=== PATIENT | female | born 1985 | race Caucasian/White ===

== ENCOUNTER 2020-01-12 18:36 | Inpatient (IN) | payer OTHER, SELFPAY ==
[2020-01-12 18:45] VITALS: BP 95/61; PULSE 101; RESP 16; TEMP 36.1; O2SAT 95; BMI 20.5
[2020-01-12 18:50] VITALS: BP 98/61; PULSE 101; RESP 20; TEMP 36.1; O2SAT 95
[2020-01-12 20:17] LABS: Glucose Urine UA NEG (NEG); Leukocyte Esterase Urine NEG (NEG); Nitrite Urine NEG (NEG); Specific Gravity - Urine >= 1.030 (1.005-1.025); UPreg QC Valid YES; Urine Blood NEG (NEG); Urine Ketones NEG (NEG); Urine Pregnancy NEGATIVE (NEGATIVE); Urine Protein NEG (NEG-TRACE)
[2020-01-12 20:18] LABS: Appearance Urine CLEAR; Color Urine YELLOW
[2020-01-12 20:24] LABS: Bacteria Urine 1+ /LPF; RBC Urine 0 /HPF (0); Squamous Epithelial Cell Urine 1+ /LPF; WBC Urine 0 /HPF (0-4)
[2020-01-12 20:43] LABS: Amphetamine Screen Urine Not Detected (Not Detect); Barbiturates, Urine Not Detected (Not Detect); Benzodiazepines Screen Urine Not Detected (Not Detect); Cannabinoid Screen Urine Not Detected (Not Detect); Cocaine Screen Urine POSITIVE (Not Detect); Opiate Screen Urine POSITIVE (Not Detect); Phencyclidine Screen Urine Not Detected (Not Detect)
--- NOTE | 2020-01-12 20:58 | ED_ITS ---
HPI - Psych General Chief Complaint: Psychiatric Symptoms <Easton Figueroa NP - Last Filed: 01/12/20 21:08> Stated Complaint: crisis <Easton Figueroa NP - Last Filed: 01/12/20 21:08> Time Seen by Provider: 01/12/20 19:33 <Easton Figueroa NP - Last Filed: 01/12/20 21:08> Source: patient <Easton Figueroa NP - Last Filed: 01/12/20 21:08> Mode of arrival: ambulatory <Easton Figueroa NP - Last Filed: 01/12/20 21:08> Limitations: no limitations <Easton Figueroa NP - Last Filed: 01/12/20 21:08> History of Present Illness HPI Narrative: 34-year-old female with history of anxiety disorder, depression and polysubstance abuse with IV heroin and crack cocaine use who recently used as of noon today presenting with complaint of feeling increasingly depressed and hopeless with thoughts of SI. States she wants to stop using and due to her spleen substance and her overall being she feels depressed. She denies any specific plan. She denies any alcohol use. She denies any body aches or chil ls. No rash. No withdrawal symptoms. <Easton Figueroa NP - Last Filed: 01/12/20 21:08> MD complaint: suicidal ideation, feels depressed and anxiety <Easton Figueroa NP - Last Filed: 01/12/20 21:08> Onset (ago): day(s) <Easton Figueroa NP - Last Filed: 01/12/20 21:08> Duration: constant <Easton Figueroa NP - Last Filed: 01/12/20 21:08> History of same: Yes <Easton Figueroa NP - Last Filed: 01/12/20 21:08> Exacerbating factors: drug use <Easton Figueroa NP - Last Filed: 01/12/20 21:08> Context: recent drug abuse <Easton Figueroa NP - Last Filed: 01/12/20 21:08> Associated psychiatric symptoms: depression <Easton Figueroa NP - Last Filed: 01/12/20 21:08> If self harm: admits thoughts of self harm <Easton Figueroa NP - Last Filed: 01/12/20 21:08> Related Data Home Medications: Home Medications Medication Instructions Recorded Confirmed quetiapine 100 mg PO DAILY 01/12/20 01/12/20 quetiapine [Seroquel] 300 mg PO BEDTIME 01/12/20 01/12/20 methadone 65 mg PO DAILY 01/13/20 01/13/20 <Easton Figueroa NP - Last Filed: 01/12/20 21:08> Allergies/Adverse Reactions: Allergies Allergy/AdvReac Type Severity Reaction Status Date / Time No Known Allergies Allergy Verified 01/12/20 22:14 [No Known Allergies*] <Easton Figueroa NP - Last Filed: 01/12/20 21:08> Review of Systems Review of Systems: Constitutional: No Weight loss, No Fever, No Chills, No Night Sweats, No Fatigue, No Malaise ENT/Mouth: No Hearing loss, No Ear Pain, No Nasal Congestion, No Sinus Pain, No Hoarseness, No sore throat, No Rhinorrhea, No Swallowing Difficulty Eyes: No Eye Pain, No Swelling, No Redness, No Foreign Body, No Discharge, No Vision Changes Cardiovascular: No Chest Pain, No SOB, No Dyspnea on Exertion, No Orthopnea, No Edema, No Palpitations Respiratory: No Cough, No Sputum, No Wheezing, No Smoke Exposure, No Dyspnea Gastrointestinal: No Nausea, No Vomiting, No Diarrhea, No Constipation, No abdominal Pain, No Hematochezia, No Melena Genitourinary: no irregular bleeding, No Dysuria, No Urinary Frequency, No Hematuria, No Urinary Incontinence, No Urgency, No Flank Pain, No Urinary Flow Changes, No Hesitancy Musculoskeletal: No joint pain, No Myalgias, No Joint Swelling Skin: No Skin Lesions, No rash Neuro: No Weakness, No Numbness, No Paresthesias, No Loss of Consciousness, No Dizziness, No Headache Psych: As noted Heme/Lymph: No Bruising, No Bleeding,No Lymphadenopathy Endocrine: No Polyuria, No Polydipsia, No Temperature Intolerance <Easton Figueroa NP - Last Filed: 01/12/20 21:08> Yes all other systems are reviewed and are negative <Easton Figueroa NP - Last Filed: 01/12/20 21:08> [facility] Past Medical History Medical History: Medical History (Updated 01/12/20 @ 21:07 by Easton Figueroa NP) Anxiety Depression PTSD (post-traumatic stress disorder) <Easton Figueroa NP - Last Filed: 01/12/20 21:08> Social History Social History: Social History 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: never Smoking Status: Current every day smoker Smoked in Last 30 Days: Yes Use of substances other than those prescribed or required for medical reasons: Yes Substance Use Type: Opiates Substance Use Frequency: Daily Last Used Substance: Just Prior to Admission Any prior treatment program specific to substance use: No Advance Directives: No Advance Directives Information Provided: Yes <Easton Figueroa NP - Last Filed: 01/12/20 21:08> Physical Exam Vital Signs: Vital Signs: Vital Signs Temp Pulse Resp BP Pulse Ox 01/13/20 21:39 97 F 85 20 117/75 95 01/13/20 17:01 97.3 F 69 16 104/74 95 01/13/20 14:00 86 20 108/74 96 01/13/20 10:57 97.4 F 94 20 133/64 97 01/13/20 09:57 98.0 F 90 20 90/51 L 96 01/13/20 09:02 98.0 F 90 16 90/51 L 96 Body Mass Index 20.5 <Easton Figueroa NP - Last Filed: 01/12/20 21:08> Vital Signs: Vital Signs Temp Pulse Resp BP Pulse Ox 01/13/20 21:39 97 F 85 20 117/75 95 01/13/20 17:01 97.3 F 69 16 104/74 95 01/13/20 14:00 86 20 108/74 96 01/13/20 10:57 97.4 F 94 20 133/64 97 01/13/20 09:57 98.0 F 90 20 90/51 L 96 01/13/20 09:02 98.0 F 90 16 90/51 L 96 Body Mass Index 20.5 <Devaughn Oviedo MD - Last Filed: 01/14/20 00:24> Vital Signs: Vital Signs Temp Pulse Resp BP Pulse Ox 01/13/20 21:39 97 F 85 20 117/75 95 01/13/20 17:01 97.3 F 69 16 104/74 95 01/13/20 14:00 86 20 108/74 96 01/13/20 10:57 97.4 F 94 20 133/64 97 01/13/20 09:57 98.0 F 90 20 90/51 L 96 01/13/20 09:02 98.0 F 90 16 90/51 L 96 Body Mass Index 20.5 <Marlene Person NP - Last Filed: 01/13/20 10:55> Vital Signs: Vital Signs Temp Pulse Resp BP Pulse Ox 01/13/20 21:39 97 F 85 20 117/75 95 01/13/20 17:01 97.3 F 69 16 104/74 95 01/13/20 14:00 86 20 108/74 96 01/13/20 10:57 97.4 F 94 20 133/64 97 01/13/20 09:57 98.0 F 90 20 90/51 L 96 01/13/20 09:02 98.0 F 90 16 90/51 L 96 Body Mass Index 20.5 <BHARAT Barrow - Last Filed: 01/13/20 23:41> Const: General: cooperative and healthy appearing; No acute distress or in toxicated appearing <[facility] FERNANDO Figueroa - Last Filed: 01/12/20 21:08> Nutritional Appearance: average body habitus <[facility] FERNANDO Figueroa - Last Filed: 01/12/20 21:08> Orientation/consciousness: patient oriented x3 <[facility] FERNANDO Figueroa - Last Filed: 01/12/20 21:08> HENMT: Head: Yes normal to inspection <[facility] FERNANDO Figueroa - Last Filed: 01/12/20 21:08> Ears: hearing grossly normal bilaterally <[facility] FERNANDO Figueroa - Last Filed: 01/12/20 21:08> Eyes: General: appearance normal, both eyes and all related structures <[facility] FERNANDO Figueroa - Last Filed: 01/12/20 21:08> Visual Boss: normal visual boss by confrontation <[facility] FERNANDO Figueroa - Last Filed: 01/12/20 21:08> Neck: Neck: Yes normal visual inspection and No tender <[facility] FERNANDO Figueroa - Last Filed: 01/12/20 21:08> Thyroid: Thyroid normal <[facility] FERNANDO Figueroa - Last Filed: 01/12/20 21:08> Chest: Chest palpation & inspection: normal inspection of the chest <[place] [employer]TE[employer] - Last Filed: 01/12/20 21:08> Resp: Effort & Inspection: normal respiratory effort <[place]on [place] [employer] MAINTENANCE MECH[employer]IC - Last Filed: 01/12/20 21:08> Cardio: Jugular venous distension: no JVD <[facility] [place] [employer] MAINTENANCE MECH[employer]IC - Last Filed: 01/12/20 21:08> GI: Inspection: Yes normal to inspection <[facility] Figueroa [employer] MAINTENANCE MECH[employer]IC - Last Filed: 01/12/20 21:08> Percussion: Yes normal to percussion <[facility] Figueroa [employer] MAINTENANCE MECH[employer]IC - Last Filed: 01/12/20 21:08> Auscultation: normal bowel sounds <[facility] Figueroa [employer] MAINTENANCE MECHANIC - Last Filed: 01/12/20 21:08> : General: Yes no CVA tenderness <[facility] Figueroa [employer] MAINTENANCE MECH[employer]IC - Last Filed: 01/12/20 21:08> Back/Spine/Pelvis: Back: no CVA tenderness <[facility] Figueroa [employer] MAINTENANCE MECH[employer]IC - Last Filed: 01/12/20 21:08> Skin: Other: Multiple areas of 1 cm or smaller lesions to the upper and lower extremity were she has been picking. Consistent with self excoriation. No acute erythema / abscess / induration <[facility] Figueroa [employer] MAINTENAN[employer] MECH[employer]IC - Last Filed: 01/12/20 21:08> General skin exam: no rashes or lesions noted <[facility] Figueroa [employer] MAINTENANCE MECH[employer]IC - Last Filed: 01/12/20 21:08> Neuro: General: patient oriented x3 <Easton FigueroaFERNANDO mendez - Last Filed: 01/12/20 21:08> Extrem: General: Yes normal to inspection <[facility] Figueroa, [employer] MAINTENANCE MECH[employer]IC - Last Filed: 1 21:08> Course Course Course Narrative: 2114 Patient resting comfortably eating and drinking. Labs done pending results. Sign-out at this time pending labs review and psychiatric evaluation. <Easton FigueroaFERNANDO - Last Filed: 01/12/20 21:08> patient unable to be assessed by , will reasses in the morning <Devaughn Oviedo MD - Last Filed: 01/14/20 00:24> Reevaluation(s) Reevaluation #1: I have reviewed the chart <Devaughn Oviedo MD - Last Filed: 01/14/20 00:24> MDM - Psych MDM Narrative Medical decision making narrative: will need labs for medical screening /clearance. Will obtain psychiatric evaluation. <Easton Figueroa NP - Last Filed: 01/12/20 21:08> Differential Diagnosis Differential diagnosis: Likely suicidal ideation, depression, drug-induced psychotic disorder, acute anxiety, post-traumatic stress disorder, substance abuse and mood disorder <Easton Figueroa NP - Last Filed: 01/12/20 21:08> Restraints Face to Face Assessment: Face to Face Assessment: Current Situation: After assessment of the patient, a review of the pertinent medical record and a discussion with nursing staff, I feel the patient requires a restrain intervention. Reaction To: [] Medical Condition: [] Behavioral State: [] Continued Need: [] <Easton Figueroa NP - Last Filed: 01/12/20 21:08> Lab Data Result diagrams: : 01/13/20 05:32 01/13/20 05:32 <Easton Figueroa NP - Last Filed: 01/12/20 21:08> Labs: Lab Results 01/12/20 01/12/20 01/13/20 Range/Units 20:02 20:02 05:32 WBC 7.1 (4.8-10.8) X10*3/uL RBC 3.77 L (4.20-5.50) X10*6/uL Hgb 11.0 L (12.0-16.0) g/dl Hct 34.8 L (37-47) % MCV 92.3 (80-98) fL MCH 29.2 (27.0-33.0) pg MCHC 31.6 (31.0-35.0) g/dl RDW 13.4 (11.0-16.0) % Plt Count 327 (160-400) X10*3/uL MPV 9.5 (9.4-12.3) fL Immature Gran % (Auto) 0.3 (0.0-0.4) % Neut % (Auto) 37.5 L (45-73) % Lymph % (Auto) 45.6 H (20-40) % [place] % (Auto) 7.3 (2-11) % Eos % (Auto) 8.9 H (0-4) % Baso % (Auto) 0.4 (0-2) % Lymph # (Auto) 3.2 (1.2-4.9) X10*3/uL [place] # (Auto) 0.5 (0.1-1.2) X10*3/uL Eos # (Auto) 0.6 H (0.0-0.4) X10*3/uL Baso # (Auto) 0.0 (0.0-0.2) X10*3/uL Abs Immat Gran (auto) 0.02 (0.00-0.03) X10*3/uL Absolute Neuts (auto) 2.7 (2.0-8.3) X10*3/uL Absolute Nucleated RBC 0.000 (0.0-0.012) X10*3/uL Nucleated RBC % (auto) 0.0 (0.0-0.2) /100WBC Sodium (135-145) mmol/L Potassium (3.3-5.1) mmol/l Chloride (96-108) mmol/L Carbon Dioxide (22-29) mmol/L Anion Gap (12-20) BUN (9-16) mg/dL Creatinine (0.5-1.4) mg/dL Estim Creat Clear Calc Estimated GFR Random Glucose (60-115) mg/dL Calcium (8.4-10.2) mg/dL Magnesium Total Bilirubin (0.0-1.0) mg/dL Direct Bilirubin (0.0-0.5) mg/dL AST (5-31) U/L ALT (0-31) U/L Alkaline Phosphatase (39-117) U/L Total Protein (6.5-8.0) g/dL Albumin (3.5-5.0) g/dL Urine Color YELLOW Urine Appearance CLEAR Urine pH 6.0 (5.0-8.0) Ur Specific [place] >= 1.030 H (1.005-1.025) Urine Protein NEG (NEG-TRACE) MG/DL Urine Glucose (UA) NEG (NEG) MG/DL Urine Ketones NEG (NEG) MG/DL Urine Blood NEG (NEG) Urine Nitrite NEG (NEG) Ur Leukocyte Esterase NEG (NEG) Urine RBC 0 (0) /HPF Urine WBC 0 (0-4) /HPF Ur Squamous Epith Cells 1+ /LPF Urine Bacteria 1+ /LPF Urine Test NEGATIVE (NEGATIVE) Urine Opiates Screen POSITIVE H (Not Detect) Ur Barbiturates Screen Not Detected (Not Detect) Ur Phencyclidine Scrn Not Detected (Not Detect) Ur Amphetamines Screen Not Detected (Not Detect) U Benzodiazepines Scrn Not Detected (Not Detect) Urine Cocaine Screen POSITIVE H (Not Detect) U Marijuana (THC) Screen Not Detected (Not Detect) Ethyl Alcohol mg/dL 01/13/20 01/13/20 01/13/20 Range/Units 05:32 05:33 05:33 WBC (4.8-10.8) X10*3/uL RBC (4.20-5.50) X10*6/uL Hgb (12.0-16.0) g/dl Hct (37-47) % MCV (80-98) fL MCH (27.0-33.0) pg MCHC (31.0-35.0) g/dl RDW (11.0-16.0) % Plt Count (160-400) X10*3/uL MPV (9.4-12.3) fL Immature Gran % (Auto) (0.0-0.4) % Neut % (Auto) (45-73) % Lymph % (Auto) (20-40) % [place] % (Auto) (2-11) % Eos % (Auto) (0-4) % Baso % (Auto) (0-2) % Lymph # (Auto) (1.2-4.9) X10*3/uL [place] # (Auto) (0.1-1.2) X10*3/uL Eos # (Auto) (0.0-0.4) X10*3/uL Baso # (Auto) (0.0-0.2) X10*3/uL Abs Immat Gran (auto) (0.00-0.03) X10*3/uL Absolute Neuts (auto) (2.0-8.3) X10*3/uL Absolute Nucleated RBC (0.0-0.012) X10*3/uL Nucleated RBC % (auto) (0.0-0.2) /100WBC Sodium 138 (135-145) mmol/L Potassium 4.0 (3.3-5.1) mmol/l Chloride 104 (96-108) mmol/L Carbon Dioxide 28 (22-29) mmol/L Anion Gap 10 L (12-20) BUN 14 (9-16) mg/dL Creatinine 0.76 (0.5-1.4) mg/dL Estim Creat Clear Calc 90.4 Estimated GFR > 60 Random Glucose 99 (60-115) mg/dL Calcium 8.8 (8.4-10.2) mg/dL Magnesium Cancelled Total Bilirubin < 0.2 (0.0-1.0) mg/dL Direct Bilirubin < 0.2 (0.0-0.5) mg/dL AST 17 (5-31) U/L ALT 11 (0-31) U/L Alkaline Phosphatase 85 (39-117) U/L Total Protein 6.6 (6.5-8.0) g/dL Albumin 3.7 (3.5-5.0) g/dL Urine Color Urine Appearance Urine pH (5.0-8.0) Ur Specific [place] (1.005-1.025) Urine Protein (NEG-TRACE) MG/DL Urine Glucose (UA) (NEG) MG/DL Urine Ketones (NEG) MG/DL Urine Blood (NEG) Urine Nitrite (NEG) Ur Leukocyte Esterase (NEG) Urine RBC (0) /HPF Urine WBC (0-4) /HPF Ur Squamous Epith Cells /LPF Urine Bacteria /LPF Urine Test (NEGATIVE) Urine Opiates Screen (Not Detect) Ur Barbiturates Screen (Not Detect) Ur Phencyclidine Scrn (Not Detect) Ur Amphetamines Screen (Not Detect) U Benzodiazepines Scrn (Not Detect) Urine Cocaine Screen (Not Detect) U Marijuana (THC) Screen (Not Detect) Ethyl Alcohol < 10 mg/dL <Easton Figueroa NP - Last Filed: 01/12/20 21:08> Lab Results 01/12/20 01/12/20 01/13/20 Range/Units 20:02 20:02 05:32 WBC 7.1 (4.8-10.8) X10*3/uL RBC 3.77 L (4.20-5.50) X10*6/uL Hgb 11.0 L (12.0-16.0) g/dl Hct 34.8 L (37-47) % MCV 92.3 (80-98) fL MCH 29.2 (27.0-33.0) pg MCHC 31.6 (31.0-35.0) g/dl RDW 13.4 (11.0-16.0) % Plt Count 327 (160-400) X10*3/uL MPV 9.5 (9.4-12.3) fL Immature Gran % (Auto) 0.3 (0.0-0.4) % Neut % (Auto) 37.5 L (45-73) % Lymph % (Auto) 45.6 H (20-40) % [place] % (Auto) 7.3 (2-11) % Eos % (Auto) 8.9 H (0-4) % Baso % (Auto) 0.4 (0-2) % Lymph # (Auto) 3.2 (1.2-4.9) X10*3/uL [place] # (Auto) 0.5 (0.1-1.2) X10*3/uL Eos # (Auto) 0.6 H (0.0-0.4) X10*3/uL Baso # (Auto) 0.0 (0.0-0.2) X10*3/uL Abs Immat Gran (auto) 0.02 (0.00-0.03) X10*3/uL Absolute Neuts (auto) 2.7 (2.0-8.3) X10*3/uL Absolute Nucleated RBC 0.000 (0.0-0.012) X10*3/uL Nucleated RBC % (auto) 0.0 (0.0-0.2) /100WBC Sodium (135-145) mmol/L Potassium (3.3-5.1) mmol/l Chloride (96-108) mmol/L Carbon Dioxide (22-29) mmol/L Anion Gap (12-20) BUN (9-16) mg/dL Creatinine (0.5-1.4) mg/dL Estim Creat Clear Calc Estimated GFR Random Glucose (60-115) mg/dL Calcium (8.4-10.2) mg/dL Magnesium Total Bilirubin (0.0-1.0) mg/dL Direct Bilirubin (0.0-0.5) mg/dL AST (5-31) U/L ALT (0-31) U/L Alkaline Phosphatase (39-117) U/L Total Protein (6.5-8.0) g/dL Albumin (3.5-5.0) g/dL Urine Color YELLOW Urine Appearance CLEAR Urine pH 6.0 (5.0-8.0) Ur Specific [place] >= 1.030 H (1.005-1.025) Urine Protein NEG (NEG-TRACE) MG/DL Urine Glucose (UA) NEG (NEG) MG/DL Urine Ketones NEG (NEG) MG/DL Urine Blood NEG (NEG) Urine Nitrite NEG (NEG) Ur Leukocyte Esterase NEG (NEG) Urine RBC 0 (0) /HPF Urine WBC 0 (0-4) /HPF Ur Squamous Epith Cells 1+ /LPF Urine Bacteria 1+ /LPF Urine Test NEGATIVE (NEGATIVE) Urine Opiates Screen POSITIVE H (Not Detect) Ur Barbiturates Screen Not Detected (Not Detect) Ur Phencyclidine Scrn Not Detected (Not Detect) Ur Amphetamines Screen Not Detected (Not Detect) U Benzodiazepines Scrn Not Detected (Not Detect) Urine Cocaine Screen POSITIVE H (Not Detect) U Marijuana (THC) Screen Not Detected (Not Detect) Ethyl Alcohol mg/dL 01/13/20 01/13/20 01/13/20 Range/Units 05:32 05:33 05:33 WBC (4.8-10.8) X10*3/uL RBC (4.20-5.50) X10*6/uL Hgb (12.0-16.0) g/dl Hct (37-47) % MCV (80-98) fL MCH (27.0-33.0) pg MCHC (31.0-35.0) g/dl RDW (11.0-16.0) % Plt Count (160-400) X10*3/uL MPV (9.4-12.3) fL Immature Gran % (Auto) (0.0-0.4) % Neut % (Auto) (45-73) % Lymph % (Auto) (20-40) % [place] % (Auto) (2-11) % Eos % (Auto) (0-4) % Baso % (Auto) (0-2) % Lymph # (Auto) (1.2-4.9) X10*3/uL [place] # (Auto) (0.1-1.2) X10*3/uL Eos # (Auto) (0.0-0.4) X10*3/uL Baso # (Auto) (0.0-0.2) X10*3/uL Abs Immat Gran (auto) (0.00-0.03) X10*3/uL Absolute Neuts (auto) (2.0-8.3) X10*3/uL Absolute Nucleated RBC (0.0-0.012) X10*3/uL Nucleated RBC % (auto) (0.0-0.2) /100WBC Sodium 138 (135-145) mmol/L Potassium 4.0 (3.3-5.1) mmol/l Chloride 104 (96-108) mmol/L Carbon Dioxide 28 (22-29) mmol/L Anion Gap 10 L (12-20) BUN 14 (9-16) mg/dL Creatinine 0.76 (0.5-1.4) mg/dL Estim Creat Clear Calc 90.4 Estimated GFR > 60 Random Glucose 99 (60-115) mg/dL Calcium 8.8 (8.4-10.2) mg/dL Magnesium Cancelled Total Bilirubin < 0.2 (0.0-1.0) mg/dL Direct Bilirubin < 0.2 (0.0-0.5) mg/dL AST 17 (5-31) U/L ALT 11 (0-31) U/L Alkaline Phosphatase 85 (39-117) U/L Total Protein 6.6 (6.5-8.0) g/dL Albumin 3.7 (3.5-5.0) g/dL Urine Color Urine Appearance Urine pH (5.0-8.0) Ur Specific [place] (1.005-1.025) Urine Protein (NEG-TRACE) MG/DL Urine Glucose (UA) (NEG) MG/DL Urine Ketones (NEG) MG/DL Urine Blood (NEG) Urine Nitrite (NEG) Ur Leukocyte Esterase (NEG) Urine RBC (0) /HPF Urine WBC (0-4) /HPF Ur Squamous Epith Cells /LPF Urine Bacteria /LPF Urine Test (NEGATIVE) Urine Opiates Screen (Not Detect) Ur Barbiturates Screen (Not Detect) Ur Phencyclidine Scrn (Not Detect) Ur Amphetamines Screen (Not Detect) U Benzodiazepines Scrn (Not Detect) Urine Cocaine Screen (Not Detect) U Marijuana (THC) Screen (Not Detect) Ethyl Alcohol < 10 mg/dL <Devaughn Oviedo MD - Last Filed: 01/14/20 00:24> Lab Results 01/12/20 01/12/20 01/13/20 Range/Units 20:02 20:02 05:32 WBC 7.1 (4.8-10.8) X10*3/uL RBC 3.77 L (4.20-5.50) X10*6/uL Hgb 11.0 L (12.0-16.0) g/dl Hct 34.8 L (37-47) % MCV 92.3 (80-98) fL MCH 29.2 (27.0-33.0) pg MCHC 31.6 (31.0-35.0) g/dl RDW 13.4 (11.0-16.0) % Plt Count 327 (160-400) X10*3/uL MPV 9.5 (9.4-12.3) fL Immature Gran % (Auto) 0.3 (0.0-0.4) % Neut % (Auto) 37.5 L (45-73) % Lymph % (Auto) 45.6 H (20-40) % [place] % (Auto) 7.3 (2-11) % Eos % (Auto) 8.9 H (0-4) % Baso % (Auto) 0.4 (0-2) % Lymph # (Auto) 3.2 (1.2-4.9) X10*3/uL [place] # (Auto) 0.5 (0.1-1.2) X10*3/uL Eos # (Auto) 0.6 H (0.0-0.4) X10*3/uL Baso # (Auto) 0.0 (0.0-0.2) X10*3/uL Abs Immat Gran (auto) 0.02 (0.00-0.03) X10*3/uL Absolute Neuts (auto) 2.7 (2.0-8.3) X10*3/uL Absolute Nucleated RBC 0.000 (0.0-0.012) X10*3/uL Nucleated RBC % (auto) 0.0 (0.0-0.2) /100WBC Sodium (135-145) mmol/L Potassium (3.3-5.1) mmol/l Chloride (96-108) mmol/L Carbon Dioxide (22-29) mmol/L Anion Gap (12-20) BUN (9-16) mg/dL Creatinine (0.5-1.4) mg/dL Estim Creat Clear Calc Estimated GFR Random Glucose (60-115) mg/dL Calcium (8.4-10.2) mg/dL Magnesium Total Bilirubin (0.0-1.0) mg/dL Direct Bilirubin (0.0-0.5) mg/dL AST (5-31) U/L ALT (0-31) U/L Alkaline Phosphatase (39-117) U/L Total Protein (6.5-8.0) g/dL Albumin (3.5-5.0) g/dL Urine Color YELLOW Urine Appearance CLEAR Urine pH 6.0 (5.0-8.0) Ur Specific [place] >= 1.030 H (1.005-1.025) Urine Protein NEG (NEG-TRACE) MG/DL Urine Glucose (UA) NEG (NEG) MG/DL Urine Ketones NEG (NEG) MG/DL Urine Blood NEG (NEG) Urine Nitrite NEG (NEG) Ur Leukocyte Esterase NEG (NEG) Urine RBC 0 (0) /HPF Urine WBC 0 (0-4) /HPF Ur Squamous Epith Cells 1+ /LPF Urine Bacteria 1+ /LPF Urine Test NEGATIVE (NEGATIVE) Urine Opiates Screen POSITIVE H (Not Detect) Ur Barbiturates Screen Not Detected (Not Detect) Ur Phencyclidine Scrn Not Detected (Not Detect) Ur Amphetamines Screen Not Detected (Not Detect) U Benzodiazepines Scrn Not Detected (Not Detect) Urine Cocaine Screen POSITIVE H (Not Detect) U Marijuana (THC) Screen Not Detected (Not Detect) Ethyl Alcohol mg/dL 01/13/20 01/13/20 01/13/20 Range/Units 05:32 05:33 05:33 WBC (4.8-10.8) X10*3/uL RBC (4.20-5.50) X10*6/uL Hgb (12.0-16.0) g/dl Hct (37-47) % MCV (80-98) fL MCH (27.0-33.0) pg MCHC (31.0-35.0) g/dl RDW (11.0-16.0) % Plt Count (160-400) X10*3/uL MPV (9.4-12.3) fL Immature Gran % (Auto) (0.0-0.4) % Neut % (Auto) (45-73) % Lymph % (Auto) (20-40) % [place] % (Auto) (2-11) % Eos % (Auto) (0-4) % Baso % (Auto) (0-2) % Lymph # (Auto) (1.2-4.9) X10*3/uL [place] # (Auto) (0.1-1.2) X10*3/uL Eos # (Auto) (0.0-0.4) X10*3/uL Baso # (Auto) (0.0-0.2) X10*3/uL Abs Immat Gran (auto) (0.00-0.03) X10*3/uL Absolute Neuts (auto) (2.0-8.3) X10*3/uL Absolute Nucleated RBC (0.0-0.012) X10*3/uL Nucleated RBC % (auto) (0.0-0.2) /100WBC Sodium 138 (135-145) mmol/L Potassium 4.0 (3.3-5.1) mmol/l Chloride 104 (96-108) mmol/L Carbon Dioxide 28 (22-29) mmol/L Anion Gap 10 L (12-20) BUN 14 (9-16) mg/dL Creatinine 0.76 (0.5-1.4) mg/dL Estim Creat Clear Calc 90.4 Estimated GFR > 60 Random Glucose 99 (60-115) mg/dL Calcium 8.8 (8.4-10.2) mg/dL Magnesium Cancelled Total Bilirubin < 0.2 (0.0-1.0) mg/dL Direct Bilirubin < 0.2 (0.0-0.5) mg/dL AST 17 (5-31) U/L ALT 11 (0-31) U/L Alkaline Phosphatase 85 (39-117) U/L Total Protein 6.6 (6.5-8.0) g/dL Albumin 3.7 (3.5-5.0) g/dL Urine Color Urine Appearance Urine pH (5.0-8.0) Ur Specific [place] (1.005-1.025) Urine Protein (NEG-TRACE) MG/DL Urine Glucose (UA) (NEG) MG/DL Urine Ketones (NEG) MG/DL Urine Blood (NEG) Urine Nitrite (NEG) Ur Leukocyte Esterase (NEG) Urine RBC (0) /HPF Urine WBC (0-4) /HPF Ur Squamous Epith Cells /LPF Urine Bacteria /LPF Urine Test (NEGATIVE) Urine Opiates Screen (Not Detect) Ur Barbiturates Screen (Not Detect) Ur Phencyclidine Scrn (Not Detect) Ur Amphetamines Screen (Not Detect) U Benzodiazepines Scrn (Not Detect) Urine Cocaine Screen (Not Detect) U Marijuana (THC) Screen (Not Detect) Ethyl Alcohol < 10 mg/dL <Marlene Person NP - Last Filed: 01/13/20 10:55> Lab Results 01/12/20 01/12/20 01/13/20 Range/Units 20:02 20:02 05:32 WBC 7.1 (4.8-10.8) X10*3/uL RBC 3.77 L (4.20-5.50) X10*6/uL Hgb 11.0 L (12.0-16.0) g/dl Hct 34.8 L (37-47) % MCV 92.3 (80-98) fL MCH 29.2 (27.0-33.0) pg MCHC 31.6 (31.0-35.0) g/dl RDW 13.4 (11.0-16.0) % Plt Count 327 (160-400) X10*3/uL MPV 9.5 (9.4-12.3) fL Immature Gran % (Auto) 0.3 (0.0-0.4) % Neut % (Auto) 37.5 L (45-73) % Lymph % (Auto) 45.6 H (20-40) % [place] % (Auto) 7.3 (2-11) % Eos % (Auto) 8.9 H (0-4) % Baso % (Auto) 0.4 (0-2) % Lymph # (Auto) 3.2 (1.2-4.9) X10*3/uL [place] # (Auto) 0.5 (0.1-1.2) X10*3/uL Eos # (Auto) 0.6 H (0.0-0.4) X10*3/uL Baso # (Auto) 0.0 (0.0-0.2) X10*3/uL Abs Immat Gran (auto) 0.02 (0.00-0.03) X10*3/uL Absolute Neuts (auto) 2.7 (2.0-8.3) X10*3/uL Absolute Nucleated RBC 0.000 (0.0-0.012) X10*3/uL Nucleated RBC % (auto) 0.0 (0.0-0.2) /100WBC Sodium (135-145) mmol/L Potassium (3.3-5.1) mmol/l Chloride (96-108) mmol/L Carbon Dioxide (22-29) mmol/L Anion Gap (12-20) BUN (9-16) mg/dL Creatinine (0.5-1.4) mg/dL Estim Creat Clear Calc Estimated GFR Random Glucose (60-115) mg/dL Calcium (8.4-10.2) mg/dL Magnesium Total Bilirubin (0.0-1.0) mg/dL Direct Bilirubin (0.0-0.5) mg/dL AST (5-31) U/L ALT (0-31) U/L Alkaline Phosphatase (39-117) U/L Total Protein (6.5-8.0) g/dL Albumin (3.5-5.0) g/dL Urine Color YELLOW Urine Appearance CLEAR Urine pH 6.0 (5.0-8.0) Ur Specific [place] >= 1.030 H (1.005-1.025) Urine Protein NEG (NEG-TRACE) MG/DL Urine Glucose (UA) NEG (NEG) MG/DL Urine Ketones NEG (NEG) MG/DL Urine Blood NEG (NEG) Urine Nitrite NEG (NEG) Ur Leukocyte Esterase NEG (NEG) Urine RBC 0 (0) /HPF Urine WBC 0 (0-4) /HPF Ur Squamous Epith Cells 1+ /LPF Urine Bacteria 1+ /LPF Urine Test NEGATIVE (NEGATIVE) Urine Opiates Screen POSITIVE H (Not Detect) Ur Barbiturates Screen Not Detected (Not Detect) Ur Phencyclidine Scrn Not Detected (Not Detect) Ur Amphetamines Screen Not Detected (Not Detect) U Benzodiazepines Scrn Not Detected (Not Detect) Urine Cocaine Screen POSITIVE H (Not Detect) U Marijuana (THC) Screen Not Detected (Not Detect) Ethyl Alcohol mg/dL 01/13/20 01/13/20 01/13/20 Range/Units 05:32 05:33 05:33 WBC (4.8-10.8) X10*3/uL RBC (4.20-5.50) X10*6/uL Hgb (12.0-16.0) g/dl Hct (37-47) % MCV (80-98) fL MCH (27.0-33.0) pg MCHC (31.0-35.0) g/dl RDW (11.0-16.0) % Plt Count (160-400) X10*3/uL MPV (9.4-12.3) fL Immature Gran % (Auto) (0.0-0.4) % Neut % (Auto) (45-73) % Lymph % (Auto) (20-40) % [place] % (Auto) (2-11) % Eos % (Auto) (0-4) % Baso % (Auto) (0-2) % Lymph # (Auto) (1.2-4.9) X10*3/uL [place] # (Auto) (0.1-1.2) X10*3/uL Eos # (Auto) (0.0-0.4) X10*3/uL Baso # (Auto) (0.0-0.2) X10*3/uL Abs Immat Gran (auto) (0.00-0.03) X10*3/uL Absolute Neuts (auto) (2.0-8.3) X10*3/uL Absolute Nucleated RBC (0.0-0.012) X10*3/uL Nucleated RBC % (auto) (0.0-0.2) /100WBC Sodium 138 (135-145) mmol/L Potassium 4.0 (3.3-5.1) mmol/l Chloride 104 (96-108) mmol/L Carbon Dioxide 28 (22-29) mmol/L Anion Gap 10 L (12-20) BUN 14 (9-16) mg/dL Creatinine 0.76 (0.5-1.4) mg/dL Estim Creat Clear Calc 90.4 Estimated GFR > 60 Random Glucose 99 (60-115) mg/dL Calcium 8.8 (8.4-10.2) mg/dL Magnesium Cancelled Total Bilirubin < 0.2 (0.0-1.0) mg/dL Direct Bilirubin < 0.2 (0.0-0.5) mg/dL AST 17 (5-31) U/L ALT 11 (0-31) U/L Alkaline Phosphatase 85 (39-117) U/L Total Protein 6.6 (6.5-8.0) g/dL Albumin 3.7 (3.5-5.0) g/dL Urine Color Urine Appearance Urine pH (5.0-8.0) Ur Specific [place] (1.005-1.025) Urine Protein (NEG-TRACE) MG/DL Urine Glucose (UA) (NEG) MG/DL Urine Ketones (NEG) MG/DL Urine Blood (NEG) Urine Nitrite (NEG) Ur Leukocyte Esterase (NEG) Urine RBC (0) /HPF Urine WBC (0-4) /HPF Ur Squamous Epith Cells /LPF Urine Bacteria /LPF Urine Test (NEGATIVE) Urine Opiates Screen (Not Detect) Ur Barbiturates Screen (Not Detect) Ur Phencyclidine Scrn (Not Detect) Ur Amphetamines Screen (Not Detect) U Benzodiazepines Scrn (Not Detect) Urine Cocaine Screen (Not Detect) U Marijuana (THC) Screen (Not Detect) Ethyl Alcohol < 10 mg/dL <BHARAT Barrow - Last Filed: 01/13/20 23:41> Discharge Plan Discharge Clinical Impression: Suicidal ideation, Depression, Drug-induced psychotic disorder, Acute anxiety <Easton Figueroa NP - Last Filed: 01/12/20 21:08> Prescriptions: No Action quetiapine [Seroquel] 300 mg Tablet 300 mg PO BEDTIME RF: 0 quetiapine 100 mg tablet 100 mg PO DAILY RF: 0 methadone 65 mg PO DAILY RF: 0 <Easton Figueroa NP - Last Filed: 01/12/20 21:08>
[2020-01-12 21:39] VITALS: BP 93/63; PULSE 84; TEMP 36.1; O2SAT 97
[2020-01-12] MEDS: QUEtiapine Fumarate 300 MG TABLET PO (23:32)
[2020-01-12 23:49] VITALS: BP 93/58; PULSE 91; RESP 20; TEMP 36.7; O2SAT 97
--- NOTE | 2020-01-13 | ECG_ITS ---
Test Reason : MED CLEARANCE Blood Pressure : / mmHG Vent. Rate : 090 BPM Atrial Rate : 090 BPM P-R Int : 120 ms QRS Dur : 080 ms QT Int : 406 ms P-R-T Axes : 049 -13 038 degrees QTc Int : 496 ms Normal sinus rhythm Normal ECG No previous ECGs available Referred By: Jeni Mujica Electronically Signed By:JU MORROW MD
--- NOTE | 2020-01-13 01:43 | PC.NURSE ---
Patient refused to talk to [facility] clinician, patient in deep sleep, agreed to talk in the morning, Denied distress. Will continue to monitor.
--- NOTE | 2020-01-13 04:29 | PC.NURSE ---
Patient in bed appears sleeping, no distress observed/reported, respiration +/=/non-labored bilaterally. Will continue to monitor.
[2020-01-13 05:39] LABS: MANUAL DIFF FLAG NO
[2020-01-13 05:41] LABS: Basophils Percent Auto 0.4 % (0-2); Eosinophils Absolute Auto 0.6 X10*3/uL (0.0-0.4); Eosinophils Percent Auto 8.9 % (0-4); Hematocrit 34.8 % (37-47); Imm Gran Abs Auto 0.02 X10*3/uL (0.00-0.03); Imm Gran Pct Auto 0.3 % (0.0-0.4); Lymphocytes Absolute Auto 3.2 X10*3/uL (1.2-4.9); Lymphocytes Percent Auto 45.6 % (20-40); Mean Corpuscular HGB Conc 31.6 g/dl (31.0-35.0); Mean Corpuscular Hemoglobin 29.2 pg (27.0-33.0); Mean Corpuscular Volume 92.3 fL (80-98); Mean Platelet Volume 9.5 fL (9.4-12.3); Monocytes Absolute Auto 0.5 X10*3/uL (0.1-1.2); Monocytes Percent Auto 7.3 % (2-11); Neutrophils Absolute Auto 2.7 X10*3/uL (2.0-8.3); Neutrophils Percent Auto 37.5 % (45-73); Platelet Count 327 X10*3/uL (160-400); Red Blood Count 3.77 X10*6/uL (4.20-5.50); Red Cell Distribution Width 13.4 % (11.0-16.0); White Blood Count 7.1 X10*3/uL (4.8-10.8)
--- NOTE | 2020-01-13 06:06 | PC.NURSE ---
Patient resistive with her lab draw, needed education and redirection, finally agreed, lab drawn/sent to lab/pending result. Patient currently in bed appears sleeping, no distress observed/reported. Respiration +/=/non-labored bilaterally. Will continue to monitor.
[2020-01-13 06:25] LABS: Ethanol < 10 mg/dL
[2020-01-13 06:25] LABS: Anion Gap 10 (12-20); Blood Urea Nitrogen 14 mg/dL (9-16); Calcium 8.8 mg/dL (8.4-10.2); Carbon Dioxide 28 mmol/L (22-29); Chloride 104 mmol/L (96-108); Creatinine Clr Calc Pharmacy 90.4; Estimated Glomerular Filt Rate > 60; Glucose Random 99 mg/dL (60-115); Sodium 138 mmol/L (135-145)
[2020-01-13 06:29] LABS: Alanine Aminotransferase 11 U/L (0-31); Albumin Level 3.7 g/dL (3.5-5.0); Alkaline Phosphatase 85 U/L (39-117); Aspartate Amino Transferase 17 U/L (5-31); Bilirubin Direct < 0.2 mg/dL (0.0-0.5); Bilirubin Total < 0.2 mg/dL (0.0-1.0); Total Protein 6.6 g/dL (6.5-8.0)
--- NOTE | 2020-01-13 07:23 | PC.NURSE ---
Report received from MANISHA Mixon. Pt resting, resp unlabored.
[2020-01-13] MEDS: QUEtiapine Fumarate 100 MG TABLET PO (08:35)
[2020-01-13 09:02] VITALS: BP 90/51; PULSE 90; RESP 16; TEMP 36.7; O2SAT 96
[2020-01-13 09:57] VITALS: BP 90/51; PULSE 90; RESP 20; TEMP 36.7; O2SAT 96
[2020-01-13 10:57] VITALS: BP 133/64; PULSE 94; RESP 20; TEMP 36.3; O2SAT 97
--- NOTE | 2020-01-13 13:29 | PC.NURSE ---
BHN made several attempts to evaluate pt, but pt not engaging in evaluation. Pt ate several snacks and a sandwich earlier. several scabbed areas noted to arms and legs. Pt arousable, but returns to sleep right away- encouraged to eat lunch but fell back asleep.
[2020-01-13 14:00] VITALS: BP 108/74; PULSE 86; RESP 20; O2SAT 96
[2020-01-13] MEDS: Acetaminophen 325 MG TABLET 650 MG PO (14:26)
[2020-01-13] MEDS: LORazepam 1 MG TABLET PO ×2 (14:26→21:29)
[2020-01-13 17:01] VITALS: BP 104/74; PULSE 69; RESP 16; TEMP 36.3; O2SAT 95
--- NOTE | 2020-01-13 18:38 | PC.NURSE ---
Pt resting, ate meal, no concerns reported.
--- NOTE | 2020-01-13 20:06 | PC.NURSE ---
Pt currently sleeping, no signs of distress. Respirations non-labored.
[2020-01-13] MEDS: QUEtiapine Fumarate 300 MG TABLET PO (21:13)
[2020-01-13] MEDS: Ibuprofen 600 MG TABLET PO (21:29)
[2020-01-13 21:39] VITALS: BP 117/75; PULSE 85; RESP 20; TEMP 36.1; O2SAT 95
--- NOTE | 2020-01-13 22:59 | PC.NURSE ---
PER CARE TEAM ADMITTED TO M5 BED 517-2 DX: ADJUSTMENT DISORDER W/EMOTIONAL & CONDUCT DISORDER
[2020-01-14 00:33] LABS: SARS COV2 PCR INHOUSE NEGATIVE (Negative)
[2020-01-14 00:37] LABS: Magnesium 2.1 mg/dL (1.6-2.6)
[2020-01-14 04:35] VITALS: BP 95/54; PULSE 80; RESP 18; TEMP 36.3; O2SAT 96
--- NOTE | 2020-01-14 04:48 | PC.NURSE ---
Patient signed 3 day notice to discharge. Signed on 01/14/20 and discharge date 01/18/20. Staff notified.
[2020-01-14 05:03] VITALS: BMI 22.3
--- NOTE | 2020-01-14 05:14 | PC.ADMIT ---
patient was brought to the unit by 0430. VSs was taken while patient remained in the wheelchair. Patient reports that yes I have suicidal thoughts. I want to kill myself. I want to lie down. I am dope sick . Patient reports that patient uses opiate on the top of her Methadone and that she is withdrawing now. Patient asked for food and fluid I need a lot of sugar in my cereal. I only eat like this when I am detoxing . Patient signed CV prior to brought up to M5, then requested to sign 3 day notice. Patient presented with irritabl/agiatated mood, with some behaviors as childlike, not cooperative on admission, refused to answer some basic questions. UDS was positive for opiates and cocaine. BAL was negative. EKG was done, NSR, with prolong QT and Qtc interval(406/496). Some skin issues observed on bilalerall arms I pick on my skin .Patient is placed on 5 min check with unlokced bathroom for own safety. Methadone dose will be confirmed in the morning by day nurse. Nurse to nurse was done. Nurse to DOC will be done shorty and home meds will be verified with Pharm.
[2020-01-14 06:00] VITALS: BP 92/57; PULSE 80; TEMP 37.3
[2020-01-14] MEDS: QUEtiapine Fumarate 100 MG TABLET PO (08:59)
[2020-01-14] MEDS: LORazepam 1 MG TABLET PO ×2 (11:40→18:10)
[2020-01-14 15:04] VITALS: BP 92/57; PULSE 80; TEMP 37.3
[2020-01-14] MEDS: Acetaminophen 325 MG TABLET 650 MG PO (18:11)
--- NOTE | 2020-01-14 19:01 | P.HPPS_ITS ---
HPI Chief Complaint: Depressed with si Sources of Information: patient interviewed, chart reviewed and crisis/core team assessment reviewed Additional Sources of Information: PATIENT IS IRRITABLE DEMANDING TO LEAVE GIVING MINIMAL INFORMATION HPI Narrative: THE PATIENT IS A 34-YEAR-OLD FEMALE REFERRED TO THE [facility] BY AMBULANCE. REPORTEDLY THE PATIENT'S BOYFRIEND HAD CALLED THE AMBULANCE SECONDARY TO REPORTED CONCERNS THAT THE PATIENT HAD BEEN UP ABUSING ANXIETY MEDICATIONS IN THE EMERGENCY ROOM THE PATIENT WAS LETHARGIC. SHE HAS A REPORTED DIAGNOSIS OF BIPOLAR DISORDER CURRENTLY ON SEROQUEL AND METHADONE SHE IS ON SEROQUEL 100 MG IN THE MORNING 200 MG AT BEDTIME PATIENT IS ALSO ON METHADONE 65 MG DAILY THE PATIENT HAD ORIGINALLY REPORTEDLY PRESENTED FROM [facility] WHO CALLED 911 TO TRANSPORT HER TO THE EMERGENCY ROOM SECONDARY TO SEVERE MOOD LABILITY AND REPORTEDLY EXPRESSING A WISH TO . PATIENT REPORTEDLY HAS BEEN ABUSING HEROIN AND COCAINE IN ADDITION TO TAKING METHADONE. Past Psychiatric History: UNWILLING TO PROVIDE [facility] Medical History (Updated 01/14/20 @ 20:31 by Adolfo Price MD) Anxiety Depression PTSD (post-traumatic stress disorder) Narrative: EKG IN THE EMERGENCY ROOM WAS NORMAL SINUS RHYTHM BUT WITH A PROLONGED QTC OF 496 Narrative: Family History: UNABLE TO OBTAIN Social History: PATIENT HAS A HISTORY OF ADDICTION REPORTED THIS HISTORY OF BIPOLAR DISORDER. SHE STATES SHE HAD BEEN LIVING WITH HER GRANDMOTHER. THERE IS A CONCERN BOYFRIEND Substance History: PATIENT HAS A HISTORY OF INTRAVENOUS COCAINE HEROIN USE REPORTED ABUSE OF BENZODIAZEPINES FROM THE STREET SHE IS ON METHADONE 65 MG FURTHER INFORMATION PATIENT REFUSING TO GIVE AT THIS TIME Diagnostics Vital Signs (24Hr): Vital Signs - 24 hr 01/13/20 21:39 01/14/20 04:35 01/14/20 06:00 Temperature 97 F 97.3 F 99.2 F Pulse Rate 85 80 80 Respiratory Rate 20 18 Blood Pressure 117/75 95/54 L 92/57 L Pulse Oximetry 95 96 01/14/20 15:04 Temperature 99.2 F Pulse Rate 80 Respiratory Rate Blood Pressure 92/57 L Pulse Oximetry Body Mass Index 22.3 Labs Results: 01/13/20 05:32 01/13/20 05:32 Labs: Laboratory Results - last 48 hr 01/12/20 01/12/20 01/13/20 20:02 20:02 05:32 WBC 7.1 RBC 3.77 L Hgb 11.0 L Hct 34.8 L MCV 92.3 MCH 29.2 MCHC 31.6 RDW 13.4 Plt Count 327 MPV 9.5 Immature Gran % (Auto) 0.3 Neut % (Auto) 37.5 L Lymph % (Auto) 45.6 H [place] % (Auto) 7.3 Eos % (Auto) 8.9 H Baso % (Auto) 0.4 Lymph # (Auto) 3.2 [place] # (Auto) 0.5 Eos # (Auto) 0.6 H Baso # (Auto) 0.0 Abs Immat Gran (auto) 0.02 Absolute Neuts (auto) 2.7 Absolute Nucleated RBC 0.000 Nucleated RBC % (auto) 0.0 Sodium Potassium Chloride Carbon Dioxide Anion Gap BUN Creatinine Estim Creat Clear Calc Estimated GFR Random Glucose Calcium Magnesium Total Bilirubin Direct Bilirubin AST ALT Alkaline Phosphatase Total Protein Albumin Urine Color YELLOW Urine Appearance CLEAR Urine pH 6.0 Ur Specific [place] >= 1.030 H Urine Protein NEG Urine Glucose (UA) NEG Urine Ketones NEG Urine Blood NEG Urine Nitrite NEG Ur Leukocyte Esterase NEG Urine RBC 0 Urine WBC 0 Ur Squamous Epith Cells 1+ Urine Bacteria 1+ Urine Test NEGATIVE Urine Opiates Screen POSITIVE H Ur Barbiturates Screen Not Detected Ur Phencyclidine Scrn Not Detected Ur Amphetamines Screen Not Detected U Benzodiazepines Scrn Not Detected Urine Cocaine Screen POSITIVE H U Marijuana (THC) Screen Not Detected Ethyl Alcohol Coronavirus (PCR) 01/13/20 01/13/20 01/13/20 05:32 05:33 05:33 WBC RBC Hgb Hct MCV MCH MCHC RDW Plt Count MPV Immature Gran % (Auto) Neut % (Auto) Lymph % (Auto) [place] % (Auto) Eos % (Auto) Baso % (Auto) Lymph # (Auto) [place] # (Auto) Eos # (Auto) Baso # (Auto) Abs Immat Gran (auto) Absolute Neuts (auto) Absolute Nucleated RBC Nucleated RBC % (auto) Sodium 138 Potassium 4.0 Chloride 104 Carbon Dioxide 28 Anion Gap 10 L BUN 14 Creatinine 0.76 Estim Creat Clear Calc 90.4 Estimated GFR > 60 Random Glucose 99 Calcium 8.8 Magnesium Cancelled Total Bilirubin < 0.2 Direct Bilirubin < 0.2 AST 17 ALT 11 Alkaline Phosphatase 85 Total Protein 6.6 Albumin 3.7 Urine Color Urine Appearance Urine pH Ur Specific [place] Urine Protein Urine Glucose (UA) Urine Ketones Urine Blood Urine Nitrite Ur Leukocyte Esterase Urine RBC Urine WBC Ur Squamous Epith Cells Urine Bacteria Urine Test Urine Opiates Screen Ur Barbiturates Screen Ur Phencyclidine Scrn Ur Amphetamines Screen U Benzodiazepines Scrn Urine Cocaine Screen U Marijuana (THC) Screen Ethyl Alcohol < 10 Coronavirus (PCR) 01/13/20 01/14/20 23:24 00:08 WBC RBC Hgb Hct MCV MCH MCHC RDW Plt Count MPV Immature Gran % (Auto) Neut % (Auto) Lymph % (Auto) [place] % (Auto) Eos % (Auto) Baso % (Auto) Lymph # (Auto) [place] # (Auto) Eos # (Auto) Baso # (Auto) Abs Immat Gran (auto) Absolute Neuts (auto) Absolute Nucleated RBC Nucleated RBC % (auto) Sodium Potassium Chloride Carbon Dioxide Anion Gap BUN Creatinine Estim Creat Clear Calc Estimated GFR Random Glucose Calcium Magnesium 2.1 Total Bilirubin Direct Bilirubin AST ALT Alkaline Phosphatase Total Protein Albumin Urine Color Urine Appearance Urine pH Ur Specific [place] Urine Protein Urine Glucose (UA) Urine Ketones Urine Blood Urine Nitrite Ur Leukocyte Esterase Urine RBC Urine WBC Ur Squamous Epith Cells Urine Bacteria Urine Test Urine Opiates Screen Ur Barbiturates Screen Ur Phencyclidine Scrn Ur Amphetamines Screen U Benzodiazepines Scrn Urine Cocaine Screen U Marijuana (THC) Screen Ethyl Alcohol Coronavirus (PCR) NEGATIVE Meds/Allergies Meds Home Medications Medication Instructions Recorded Confirmed Type quetiapine 100 mg PO DAILY 01/12/20 01/14/20 History quetiapine [Seroquel] 300 mg PO BEDTIME 01/12/20 01/14/20 History methadone 65 mg PO DAILY 01/13/20 01/13/20 History Allergies Allergies Allergy/AdvReac Type Severity Reaction Status Date / Time No Known Allergies Allergy Verified 01/12/20 22:14 [No Known Allergies*] Mental Status Exam Mental Status Exam Narrative: THE PATIENT IS SEEN LYING IN BED. SHE IS INITIALLY LETHARGIC DEMANDING TO LEAVE THE HOSPITAL. SHE WAS GIVEN A TERRELL WARNING AND LEGAL ISSUES AND SAFETY ISSUES REGARDING INPATIENT ADMISSION WERE REVIEWED. THE PATIENT WAS YELLING CURSING REFUSING TO GIVE INFORMATION. INITIALLY SHE WAS LETHARGIC BUT AROUSABLE. WAS AGITATED CURSING YELLING DEMANDING TO LEAVE THE HOSPITAL AND UNABLE TO TAKE IN INFORMATION REGARDING HOW SHE HAD BEEN ON THE COMMUNITY WHAT B ROUGHT HER TO THE EMERGENCY ROOM AND SAFETY ISSUES. COULD NOT HAVE A CONVERSATION REGARDING HER HISTORY OR TREATMENT. SHE DID STATE SHE WAS COMING DOWN OFF COCAINE AND WAS QUITE DEPRESSED AND JUST WANTED TO GO TO A SUBSTANCE TREATMENT CENTER SHE WAS QUITE LABILE AGITATED POOR INSIGHT IMPULSE CONTROL AND JUDGMENT. Assessment & Plan Assessment & Plan (1) Suicidal ideation: Status: Acute Code(s): R45.851 - Suicidal ideations (2) PTSD (post-traumatic stress disorder): Status: Acute Code(s): F43.10 - Post-traumatic stress disorder, unspecified (3) Opiate withdrawal: Status: Acute Code(s): F11.23 - Opioid dependence with withdrawal (4) Opioid abuse with opioid-induced mood disorder: Status: Acute Code(s): F11.14 - Opioid abuse with opioid-induced mood disorder (5) Atypical bipolar disorder: Status: Acute Code(s): F31.89 - Other bipolar disorder Assessment and Plan: PATIENT IS A 34-YEAR-OLD FEMALE IRRITABLE AGITATED HE IS QUESTION OF COCAINE WITHDRAWAL QUESTION OF OPIATE WITHDRAWAL REPORTEDLY BIPOLAR AND WAS MANIC. CONTINUE SEROQUEL ON METHADONE HOWEVER NEED TO MONITOR EKG HER INITIAL EKG SHOWED AN INCREASE IN QTC. PATIENT DEALING DEMANDING TO LEAVE ALSO ASKING FOR MEDICATION. EXPLAINED HER LEGAL SITUATION. CONTINUE METHADONE START CLONIDINE FOR WITHDRAWAL LIMITED USE OF BENZODIAZEPINES MONITOR FOR OVER SEDATION MONITOR EKG EVALUATE SAFETY PATIENT ON A CV WITH A 3 DAY NOTICE EVALUATE FOR SAFETY TRY AND DEVELOP THERAPEUTIC ALLIANCE CONSIDER RETENTION CONSIDER SECTION 35 Patient educated on: medication risk/benefits ( HAD DIFFICULTY HAVING A DISCUSSION), substance abuse ( HAD DIFFICULTY HAVING A DISCUSSION), medical condition ( I DID EXPLAIN TO HER SHE HAD ABNORMAL EKG) and other ( A PSY CHIATRIC HOSPITALIZATION AND LEGAL ISSUES) Informed Consent: further education needed Reason for continued inpatient stay Substantial Risk for: harm to self, rapid decompensation and med/psych decompensation
[2020-01-14 19:11] VITALS: BP 113/69; PULSE 95; TEMP 36.8
[2020-01-14] MEDS: QUEtiapine Fumarate 50 MG TABLET PO (19:14)
[2020-01-14 19:38] VITALS: BP 113/69; PULSE 95
[2020-01-14] MEDS: cloNIDine HCL 0.1 MG TABLET PO (19:38)
[2020-01-14] MEDS: QUEtiapine Fumarate 300 MG TABLET PO (20:11)
[2020-01-15] MEDS: LORazepam 1 MG TABLET PO ×4 (03:48→19:50)
[2020-01-15] MEDS: QUEtiapine Fumarate 50 MG TABLET PO ×2 (03:49→15:23)
[2020-01-15 03:50] VITALS: BP 85/60; PULSE 92; RESP 18; TEMP 36.2
[2020-01-15] MEDS: QUEtiapine Fumarate 100 MG TABLET PO (08:41)
[2020-01-15 12:19] VITALS: BP 94/56; PULSE 74
[2020-01-15] MEDS: Acetaminophen 325 MG TABLET 650 MG PO (15:22)
[2020-01-15 16:28] VITALS: BP 103/62; PULSE 75; TEMP 36.9
--- NOTE | 2020-01-15 17:00 | HO.PSYCHPN ---
Subjective Subjective Reason For Visit: Depressed with si Subjective Notes: Conditional Voluntary and 3 Day Interim History: for patient markedly irritable and dysphoric again given lozano warning. Yelling screaming demanding to leave has no plan denies making suicidal statements prior to admission denies recent psychiatric treatment she is agreeable to taking Seroquel demanding repeated meds for withdrawal less sedated Medication Compliance: Yes Attending Groups: No Mental Status Exam Mental Status Exam Narrative: patient continues to be uncooperative depressed irritable hostile demanding to leave the hospital denying active suicidal ideation no hallucinations or delusional material. Patient's labile irritable Lozano warning again reviewed patient has 3 day notice demanding to leave the hospital with no clear plan poor impulse control hostile angry limited judgment Diagnostics Vital Signs (24Hr): Vital Signs - 24 hr 01/14/20 19:11 01/14/20 19:38 01/15/20 03:50 Temperature 98.3 F 97.1 F Pulse Rate 95 95 92 Respiratory Rate 18 Blood Pressure 113/69 113/69 85/60 L 01/15/20 12:19 01/15/20 16:28 Temperature 98.4 F Pulse Rate 74 75 Respiratory Rate Blood Pressure 94/56 L 103/62 Body Mass Index 22.3 Labs Results: 01/13/20 05:32 01/13/20 05:32 Labs: Laboratory Results - last 48 hr 01/13/20 01/13/20 01/14/20 05:32 23:24 00:08 Magnesium Cancelled 2.1 Coronavirus (PCR) NEGATIVE Medications Medications Current Medications Generic Name Dose Route Start Last Admin Trade Name Freq PRN Reason Stop Dose Admin Acetaminophen 650 mg 01/14/20 04:46 01/15/20 15:22 Acetaminophen 325 Mg Tablet PO 650 mg Q6H PRN Administration Headache/Pain Mild Scale (1-3) Al Hydroxide/Mg Hydroxide 30 ml 01/14/20 04:46 Magnesium Hydrox/Alum Hydrox 30 Ml Oral.Susp PO Q6H PRN Heartburn/Nausea Clonidine HCl 0.1 mg 01/14/20 19:26 01/14/20 19:38 Clonidine Hcl 0.1 Mg Tablet PO 0.1 mg Q4H PRN Administration OPIATE WITHDRAWL Protocol Gabapentin 300 mg 01/15/20 17:00 Gabapentin 100 Mg Capsule PO TID JAIR Lorazepam 1 mg 01/14/20 10:41 01/15/20 15:23 Lorazepam 1 Mg Tablet PO 1 mg TID PRN Administration anxiety/restlessness Magnesium Hydroxide 30 ml 01/14/20 04:46 Milk Of Magnesia 30 Ml Oral.Susp PO DAILY PRN Constipation Methadone HCl 60 mg 01/13/20 11:00 01/15/20 08:41 Methadone Hcl 1 Mg/0.1 Ml Oral.Conc PO 60 mg DAILY JAIR Administration Ondansetron HCl 4 mg 01/15/20 16:56 Ondansetron Odt 4 Mg Tab.Rapdis TRANSLINGU Q6H PRN Nausea Quetiapine Fumarate 300 mg 01/12/20 23:15 01/14/20 20:11 Quetiapine Fumarate 300 Mg Tablet PO 300 mg BEDTIME JAIR Administration Quetiapine Fumarate 100 mg 01/13/20 09:00 01/15/20 08:41 Quetiapine Fumarate 100 Mg Tablet PO 100 mg DAILY JAIR Administration Quetiapine Fumarate 50 mg 01/14/20 18:56 01/15/20 15:23 Quetiapine Fumarate 50 Mg Tablet PO 50 mg Q4H PRN Administration anxiety/restlessness Trazodone HCl 50 mg 01/14/20 04:46 Trazodone Hcl 50 Mg Tablet PO BEDTIME PRN Insomnia Allergies Allergies Allergy/AdvReac Type Severity Reaction Status Date / Time No Known Allergies Allergy Verified 01/12/20 22:14 [No Known Allergies*] Assessment & Plan Assessment & Plan (1) Atypical bipolar disorder: Status: Acute Code(s): F31.89 - Other bipolar disorder (2) Opioid abuse with opioid-induced mood disorder: Status: Acute Code(s): F11.14 - Opioid abuse with opioid-induced mood disorder (3) Opiate withdrawal: Status: Acute Code(s): F11.23 - Opioid dependence with withdrawal (4) PTSD (post-traumatic stress disorder): Status: Acute Code(s): F43.10 - Post-traumatic stress disorder, unspecified (5) Suicidal ideation: Status: Acute Code(s): R45.851 - Suicidal ideations Assessment and Plan: clonidine gabapentin lorazepam for help with detox Seroquel as mood stabilizing agent and for bipolar disorder anxiety and agitation monitor safety evaluate need for retention need collateral information patient impulsive demanding to leave but poor insight and judgment may need retention consideration of [place] 35 Greater than 50% of the session was spent on counseling and/or coordination of care
[2020-01-15] MEDS: Gabapentin 100 MG CAPSULE 300 MG PO ×2 (17:54→19:45)
[2020-01-15] MEDS: QUEtiapine Fumarate 300 MG TABLET PO (19:46)
[2020-01-16] VITALS (7 sets, daily range): BP systolic 101–111; BP diastolic 60–72; PULSE 88–96; RESP 18; TEMP 35.8–36.7; O2SAT 98
[2020-01-16] MEDS: QUEtiapine Fumarate 50 MG TABLET PO ×3 (05:12→17:20)
[2020-01-16] MEDS: LORazepam 1 MG TABLET PO ×3 (05:12→18:48)
[2020-01-16] MEDS: QUEtiapine Fumarate 100 MG TABLET PO (08:51)
[2020-01-16] MEDS: cloNIDine HCL 0.1 MG TABLET PO ×3 (08:56→17:19)
[2020-01-16] MEDS: Gabapentin 100 MG CAPSULE 300 MG PO ×3 (08:56→20:01)
[2020-01-16] MEDS: OLANZapine 10 MG VIAL IM (10:23)
[2020-01-16] MEDS: Nicotine 21 MG PATCH.TD24 TRANSDERMA (12:51)
[2020-01-16] MEDS: Acetaminophen 325 MG TABLET 650 MG PO (12:53)
--- NOTE | 2020-01-16 14:21 | P.EN_ITS ---
Event Note Event Note: 34-year-old woman admitted to for inpatient behavior health. Apparently she was at a facility in [place] and she had tested positive for gonorrhea, and possibly chlamydia and Trichomonas. She did report symptoms including yellow foul-smelling discharge, redness, irritation and lower abdominal pain and pressure. PLAN: STD. Will check BV panel, chlamydia, gonorrhea but will treat in the meantime with Doxycycine po BID for 7days (due to prolonged QTC) and Rocephin. Refused HIV check. Will also Check Urinalysis. Prolonged QTC. On Methadone, Should discuss with Flower Donohue for dosing. No complaints of arrythmia, palpitations. Check EKG in the morning. Discussed with Dr. Norberto Ricketts code.
--- NOTE | 2020-01-16 15:02 | PC.NURSE ---
DECLINED TO PARTICIPATE IN ADMISSION ASSESSMENT THIS SHIFT. DECLINED FLU VACCINE OFFERED. DR GARCIA NOTIFIED OF NEED FOR SMOKING CESSATION COUNSELING ORDER. PT REQUESTED AND RECEIVED ORDER FOR NICOTINE PATCH FOR NICOTINE CRAVINGS.
[2020-01-16 15:44] LABS: Glucose Urine UA NEG (NEG); Leukocyte Esterase Urine NEG (NEG); Nitrite Urine NEG (NEG); Specific Gravity - Urine >= 1.030 (1.005-1.025); Urine Blood NEG (NEG); Urine Ketones NEG (NEG); Urine Protein NEG (NEG-TRACE)
[2020-01-16 15:46] LABS: Appearance Urine CLEAR; Color Urine YELLOW
[2020-01-16] MEDS: cefTRIAXone sodium 250 MG VIAL IM (18:49)
[2020-01-16] MEDS: QUEtiapine Fumarate 300 MG TABLET PO (20:02)
[2020-01-17 00:35] VITALS: BP 93/63; PULSE 106
[2020-01-17] MEDS: cloNIDine HCL 0.1 MG TABLET PO ×2 (00:35→12:49)
[2020-01-17] MEDS: traZODone HCL 50 MG TABLET PO (00:35)
[2020-01-17] MEDS: Acetaminophen 325 MG TABLET 650 MG PO ×2 (00:35→13:04)
[2020-01-17] MEDS: QUEtiapine Fumarate 50 MG TABLET PO ×2 (00:35→04:37)
[2020-01-17 00:39] VITALS: BP 93/63; PULSE 106; RESP 18; TEMP 37.1
[2020-01-17] MEDS: LORazepam 1 MG TABLET PO ×3 (03:16→17:16)
--- NOTE | 2020-01-17 06:00 | ECG_ITS ---
Test Reason : repeat, check QTC Blood Pressure : / mmHG Vent. Rate : 065 BPM Atrial Rate : 065 BPM P-R Int : 126 ms QRS Dur : 090 ms QT Int : 432 ms P-R-T Axes : 038 -08 017 degrees QTc Int : 449 ms Normal sinus rhythm RSR' or QR pattern in V1 suggests right ventricular conduction delay Nonspecific T wave abnormality Inferior leads Borderline ECG When compared with ECG of 13-JAN-2020 23:33, No significant changes seen Referred By: Gwen Fine Electronically Signed By:JU MORROW MD
[2020-01-17] MEDS: QUEtiapine Fumarate 100 MG TABLET PO (09:02)
[2020-01-17] MEDS: Gabapentin 100 MG CAPSULE 300 MG PO (09:02)
[2020-01-17] MEDS: Nicotine 21 MG PATCH.TD24 TRANSDERMA (09:03)
[2020-01-17 09:07] VITALS: BP 119/72; PULSE 108; TEMP 36.7
[2020-01-17 11:11] LABS: CT PCR NOT DETECTED (Not Detect.); NG PCR NOT DETECTED (Not Detect.)
[2020-01-17 12:49] VITALS: BP 105/64; PULSE 87
[2020-01-17 12:59] VITALS: BP 105/64; PULSE 87; TEMP 36.7
--- NOTE | 2020-01-17 13:21 | HO.PSYCHPN ---
Subjective Subjective Reason For Visit: Depressed with si Subjective Notes: Conditional Voluntary and 3 Day Interim History: Pt less reactive future oriented cont on methadone Medication Compliance: Yes Attending Groups: No Mental Status Exam Mental Status Exam Narrative: Patient more appropriate less labile future oriented somewhat pressured nonpsychotic future oriented mood anxious labile less impulsive denies any active thoughts of self-harm somewhat chaotic and still not able to give a clear history states she has substance treatment agreeable to referral for psychiatric outpatient care Diagnostics Vital Signs (24Hr): Vital Signs - 24 hr 01/16/20 14:43 01/16/20 17:15 01/16/20 17:19 Temperature 98.1 F 97.2 F Pulse Rate 94 94 Respiratory Rate Blood Pressure 101/72 101/62 01/17/20 00:35 01/17/20 00:39 01/17/20 09:07 Temperature 98.8 F 98.0 F Pulse Rate 106 H 106 H 108 H Respiratory Rate 18 Blood Pressure 93/63 93/63 119/72 01/17/20 12:49 01/17/20 12:59 Temperature 98.1 F Pulse Rate 87 87 Respiratory Rate Blood Pressure 105/64 105/64 Body Mass Index 22.3 Labs Results: 01/13/20 05:32 01/13/20 05:32 Labs: Laboratory Results - last 48 hr 01/16/20 01/16/20 15:11 16:26 Urine Color YELLOW Urine Appearance CLEAR Urine pH 6.0 Ur Specific [place] >= 1.030 H Urine Protein NEG Urine Glucose (UA) NEG Urine Ketones NEG Urine Blood NEG Urine Nitrite NEG Ur Leukocyte Esterase NEG Chlam trachomat DNA PCR NOT DETECTED N.gonorrhoeae DNA (PCR) NOT DETECTED Medications Medications Current Medications Generic Name Dose Route Start Last Admin Trade Name Freq PRN Reason Stop Dose Admin Acetaminophen 650 mg 01/14/20 04:46 01/17/20 13:04 Acetaminophen 325 Mg Tablet PO 650 mg Q6H PRN Administration Headache/Pain Mild Scale (1-3) Al Hydroxide/Mg Hydroxide 30 ml 01/14/20 04:46 Magnesium Hydrox/Alum Hydrox 30 Ml Oral.Susp PO Q6H PRN Heartburn/Nausea Clonidine HCl 0.1 mg 01/14/20 19:26 01/17/20 12:49 Clonidine Hcl 0.1 Mg Tablet PO 0.1 mg Q4H PRN Administration OPIATE WITHDRAWL Protocol Doxycycline Hyclate 100 mg 01/17/20 08:00 01/17/20 09:02 Doxycycline Hyclate 100 Mg Tablet PO 01/23/20 08:01 100 mg Q12H JAIR Administration Gabapentin 400 mg 01/17/20 15:00 Gabapentin 100 Mg Capsule PO TID JAIR Ibuprofen 400 mg 01/17/20 13:04 Ibuprofen 400 Mg Tablet PO Q6H PRN Pain, Moderate (Pain Scale 4-6 Lorazepam 1 mg 01/14/20 10:41 01/17/20 12:48 Lorazepam 1 Mg Tablet PO 1 mg TID PRN Administration anxiety/restlessness Magnesium Hydroxide 30 ml 01/14/20 04:46 Milk Of Magnesia 30 Ml Oral.Susp PO DAILY PRN Constipation Methadone HCl 60 mg 01/13/20 11:00 01/17/20 09:03 Methadone Hcl 1 Mg/0.1 Ml Oral.Conc PO 60 mg DAILY JAIR Administration Nicotine 21 mg 01/16/20 10:30 01/17/20 09:03 Nicotine 21 Mg Patch.Td24 TRANSDERMA 21 mg DAILY JAIR Administration Ondansetron HCl 4 mg 01/15/20 16:56 01/16/20 12:57 Ondansetron Odt 4 Mg Tab.Rapdis TRANSLINGU 4 mg Q6H PRN Administration Nausea Quetiapine Fumarate 300 mg 01/12/20 23:15 01/16/20 20:02 Quetiapine Fumarate 300 Mg Tablet PO 300 mg BEDTIME JAIR Administration Quetiapine Fumarate 100 mg 01/13/20 09:00 01/17/20 09:02 Quetiapine Fumarate 100 Mg Tablet PO 100 mg DAILY JAIR Administration Quetiapine Fumarate 50 mg 01/14/20 18:56 01/17/20 04:37 Quetiapine Fumarate 50 Mg Tablet PO 50 mg Q4H PRN Administration anxiety/restlessness Trazodone HCl 50 mg 01/14/20 04:46 01/17/20 00:35 Trazodone Hcl 50 Mg Tablet PO 50 mg BEDTIME PRN Administration Insomnia Allergies Allergies Allergy/AdvReac Type Severity Reaction Status Date / Time No Known Allergies Allergy Verified 01/12/20 22:14 [No Known Allergies*] Assessment & Plan Assessment & Plan (1) Atypical bipolar disorder: Status: Acute Code(s): F31.89 - Other bipolar disorder (2) Opioid abuse with opioid-induced mood disorder: Status: Acute Code(s): F11.14 - Opioid abuse with opioid-induced mood disorder (3) Opiate withdrawal: Status: Acute Code(s): F11.23 - Opioid dependence with withdrawal (4) PTSD (post-traumatic stress disorder): Status: Acute Code(s): F43.10 - Post-traumatic stress disorder, unspecified (5) Suicidal ideation: Status: Acute Code(s): R45.851 - Suicidal ideations Assessment and Plan: clonidine gabapentin lorazepam for help with detox Seroquel as mood stabilizing agent and for bipolar disorder anxiety and agitation monitor safety evaluate need for retention need collateral information patient impulsive demanding to leave but poor insight and judgment may need retention consideration of Section 35 however does seem to be improving less labile patient's grandmother does not feel she would benefit from a 35 Greater than 50% of the session was spent on counseling and/or coordination of care Patient educated on: diagnosis, medication risk/benefits and substance abuse Reason for contiued inpatient stay Substantial Risk for: harm to self and rapid decompensation
[2020-01-17] MEDS: Gabapentin 100 MG CAPSULE 400 MG PO ×2 (15:10→19:52)
[2020-01-17] MEDS: Ibuprofen 400 MG TABLET PO (15:11)
[2020-01-17 17:20] VITALS: BP 102/57; PULSE 75; TEMP 36.5
[2020-01-17] MEDS: QUEtiapine Fumarate 300 MG TABLET PO (19:53)
[2020-01-18 03:25] VITALS: BP 101/68; PULSE 94; RESP 18; TEMP 36.1
[2020-01-18 03:27] VITALS: BP 101/68; PULSE 94
[2020-01-18] MEDS: LORazepam 1 MG TABLET PO (03:27)
[2020-01-18] MEDS: cloNIDine HCL 0.1 MG TABLET PO (03:27)
[2020-01-18] MEDS: QUEtiapine Fumarate 50 MG TABLET PO (03:27)
[2020-01-18] MEDS: Ibuprofen 400 MG TABLET PO (03:27)
[2020-01-18 06:15] VITALS: BP 96/56; PULSE 101; RESP 18; TEMP 36.3
[2020-01-18] MEDS: Gabapentin 100 MG CAPSULE 400 MG PO (08:40)
[2020-01-18] MEDS: QUEtiapine Fumarate 100 MG TABLET PO (08:41)
[2020-01-18] MEDS: metroNIDAZOLE 500 MG TABLET PO (12:03)
[2020-01-18] MEDS: Naloxone HCl Nasal TAKE HOME 4 MG SPRAY NOSTRILALT (12:06)
--- NOTE | 2020-01-18 12:12 | PM.PSYDC ---
DS: Providers Provider Date of admission: 01/14/20 01:06 Primary care physician: Unknown Physician Consults: 01/16/20 10:12 Consult to Hospitalist Routine Consulting Provider: Hospitalist Reason for consultation: multiple infections vag d/c abn ekg Has provider been notified: No DS: Diagnosis Discharge Diagnosis (1) Atypical bipolar disorder: Status: Acute (2) Opioid abuse with opioid-induced mood disorder: Status: Acute (3) Opiate withdrawal: Status: Acute (4) PTSD (post-traumatic stress disorder): Status: Acute (5) Suicidal ideation: Status: Acute Discharge Plan Discharge Patient Disposition: Home, Self-Care Referrals: Adilene Thompson (therapist) [Other] - 01/23/20 1:00 pm (Telehealth) Homero Houston (psychiatry) [Other] - 02/16/20 8:00 am Homero Houston (psychiatry) [Other] - 03/15/20 9:00 am AMANDA BROOKS [Other] - 01/25/20 1:00 pm Physician,Unknown [Primary Care Provider] - Discharge Medications: New clonidine HCl 0.1 mg Tablet 0.1 mg PO BID PRN (Reason: OPIATE WITHDRAWL) 15 Days Qty: 15 RF: 1 trazodone 50 mg Tablet 50 mg PO BEDTIME PRN (Reason: Insomnia) 15 Days Qty: 1 RF: 0 metronidazole 500 mg Tablet 500 mg PO Q8H 7 Days Qty: 21 RF: 0 nicotine 21 mg/24 hr Patch 24 Hour 21 mg transdermal DAILY 15 Days RF: 0 doxycycline hyclate 100 mg Tablet 100 mg PO Q12H 7 Days Qty: 14 RF: 0 quetiapine 50 mg Tablet 50 mg PO DAILY PRN (Reason: Anxiety/Restlessness) 15 Days Qty: 15 RF: 0 gabapentin 400 mg capsule 400 mg PO TID 15 Days Qty: 45 RF: 1 Narcan 4 mg/actuation spray,non-aerosol 4 mg intranasal Q2M PRN (Reason: opioid overdose) Qty: 1 RF: 1 Continued methadone 65 mg PO DAILY RF: 0 quetiapine [Seroquel] 300 mg Tablet 300 mg PO BEDTIME 15 Days Qty: 0 RF: 1 quetiapine 100 mg tablet 100 mg PO DAILY 15 Days Qty: 0 RF: 1 Discharge Orders: Discharge Order (Routine); Ordered 01/18/20 Ordered By: Adolfo Price Diet: advance to your usual diet Activity on Discharge: As tolerated Patient Instructions: Naloxone (Into the nose), Bipolar Disorder (DC) Stand Alone Forms: Community Support Discharge Date/Time: 01/18/20 13:06 Visit Report Forms: Patient Portal Discharge page Care Plan Goals: Stable mood sober no suicidality compliance with treatment Health Concerns: PTSD bipolar disorder opiate use disorder benzodiazepine use disorder cocaine use Plan of Treatment: you are refusing CSS continue methadone strongly urge you attend AA or NA if relapse please strongly consider rehab life coach you will be seen at [facility] for therapy and medication urine Seroquel for bipolar disorder and PTSD would strongly consider treatment with Depakote Trileptal or lithium you have refuse to continue further inpatient treatment at this time please follow-up with your rn chemical dependency or primary care physician regarding vaginal infection I have given you a week supply medication Mental Status Exam Mental Status Exam Patient Appearance: Appropriate Patient Orientation: Person, Place, Time and Situation Level of Consciousness: Awake and Alert Behavior Comments: PATIENT WAS MUCH CALMER BY THE TIME OF DISCHARGE FUTURE ORIENTED MUCH LESS IMPULSIVE NO LONGER CURSING NO THOUGHTS OF SELF-HARM NOT PSYCHOTIC Mood Description: Appropriate Affect Description: Anxious and Labile ( REMAIN SOMEWHAT REACTIVE WITH A LOW FRUSTRATION TOLERANCE) Delusions: Not Present Thought Process: Rumination Thought Content: positive for Intact and positive for [place] Judgement and Insight: IMPROVED JUDGMENT ACCEPTED TREATMENT WAS ANXIOUS TO BE ON TIME FOR HER BOYFRIEND AT TIME OF DISCHARGE Data Data Completed and Pending Completed studies during hospitalization [Text1]: 01/12/20 01/12/20 01/13/20 20:02 20:02 05:32 WBC 7.1 RBC 3.77 L Hgb 11.0 L Hct 34.8 L MCV 92.3 MCH 29.2 MCHC 31.6 RDW 13.4 Plt Count 327 MPV 9.5 Immature Gran % (Auto) 0.3 Neut % (Auto) 37.5 L Lymph % (Auto) 45.6 H [place] % (Auto) 7.3 Eos % (Auto) 8.9 H Baso % (Auto) 0.4 Lymph # (Auto) 3.2 [place] # (Auto) 0.5 Eos # (Auto) 0.6 H Baso # (Auto) 0.0 Abs Immat Gran (auto) 0.02 Absolute Neuts (auto) 2.7 Absolute Nucleated RBC 0.000 Nucleated RBC % (auto) 0.0 Sodium Potassium Chloride Carbon Dioxide Anion Gap BUN Creatinine Estim Creat Clear Calc Estimated GFR Random Glucose Calcium Magnesium Total Bilirubin Direct Bilirubin AST ALT Alkaline Phosphatase Total Protein Albumin Urine Color YELLOW Urine Appearance CLEAR Urine pH 6.0 Ur Specific [place] >= 1.030 H Urine Protein NEG Urine Glucose (UA) NEG Urine Ketones NEG Urine Blood NEG Urine Nitrite NEG Ur Leukocyte Esterase NEG Urine RBC 0 Urine WBC 0 Ur Squamous Epith Cells 1+ Urine Bacteria 1+ Urine Test NEGATIVE Urine Opiates Screen POSITIVE H Ur Barbiturates Screen Not Detected Ur Phencyclidine Scrn Not Detected Ur Amphetamines Screen Not Detected U Benzodiazepines Scrn Not Detected Urine Cocaine Screen POSITIVE H U Marijuana (THC) Screen Not Detected Ethyl Alcohol Gayatri species DNA Chlam trachomat DNA PCR Coronavirus (PCR) Gardnerella DNA Probe N.gonorrhoeae DNA (PCR) Trichomonas DNA Probe 01/13/20 01/13/20 01/13/20 05:32 05:33 05:33 WBC RBC Hgb Hct MCV MCH MCHC RDW Plt Count MPV Immature Gran % (Auto) Neut % (Auto) Lymph % (Auto) [place] % (Auto) Eos % (Auto) Baso % (Auto) Lymph # (Auto) [place] # (Auto) Eos # (Auto) Baso # (Auto) Abs Immat Gran (auto) Absolute Neuts (auto) Absolute Nucleated RBC Nucleated RBC % (auto) Sodium 138 Potassium 4.0 Chloride 104 Carbon Dioxide 28 Anion Gap 10 L BUN 14 Creatinine 0.76 Estim Creat Clear Calc 90.4 Estimated GFR > 60 Random Glucose 99 Calcium 8.8 Magnesium Cancelled Total Bilirubin < 0.2 Direct Bilirubin < 0.2 AST 17 ALT 11 Alkaline Phosphatase 85 Total Protein 6.6 Albumin 3.7 Urine Color Urine Appearance Urine pH Ur Specific [place] Urine Protein Urine Glucose (UA) Urine Ketones Urine Blood Urine Nitrite Ur Leukocyte Esterase Urine RBC Urine WBC Ur Squamous Epith Cells Urine Bacteria Urine Test Urine Opiates Screen Ur Barbiturates Screen Ur Phencyclidine Scrn Ur Amphetamines Screen U Benzodiazepines Scrn Urine Cocaine Screen U Marijuana (THC) Screen Ethyl Alcohol < 10 Gayatri species DNA Chlam trachomat DNA PCR Coronavirus (PCR) Gardnerella DNA Probe N.gonorrhoeae DNA (PCR) Trichomonas DNA Probe 10/16/20 10/17/20 10/19/20 23:24 00:08 15:11 WBC RBC Hgb Hct MCV MCH MCHC RDW Plt Count MPV Immature Gran % (Auto) Neut % (Auto) Lymph % (Auto) [place] % (Auto) Eos % (Auto) Baso % (Auto) Lymph # (Auto) [place] # (Auto) Eos # (Auto) Baso # (Auto) Abs Immat Gran (auto) Absolute Neuts (auto) Absolute Nucleated RBC Nucleated RBC % (auto) Sodium Potassium Chloride Carbon Dioxide Anion Gap BUN Creatinine Estim Creat Clear Calc Estimated GFR Random Glucose Calcium Magnesium 2.1 Total Bilirubin Direct Bilirubin AST ALT Alkaline Phosphatase Total Protein Albumin Urine Color YELLOW Urine Appearance CLEAR Urine pH 6.0 Ur Specific [place] >= 1.030 H Urine Protein NEG Urine Glucose (UA) NEG Urine Ketones NEG Urine Blood NEG Urine Nitrite NEG Ur Leukocyte Esterase NEG Urine RBC Urine WBC Ur Squamous Epith Cells Urine Bacteria Urine Test Urine Opiates Screen Ur Barbiturates Screen Ur Phencyclidine Scrn Ur Amphetamines Screen U Benzodiazepines Scrn Urine Cocaine Screen U Marijuana (THC) Screen Ethyl Alcohol Gayatri species DNA Chlam trachomat DNA PCR Coronavirus (PCR) NEGATIVE Gardnerella DNA Probe N.gonorrhoeae DNA (PCR) Trichomonas DNA Probe 01/16/20 01/17/20 16:26 14:27 WBC RBC Hgb Hct MCV MCH MCHC RDW Plt Count MPV Immature Gran % (Auto) Neut % (Auto) Lymph % (Auto) [place] % (Auto) Eos % (Auto) Baso % (Auto) Lymph # (Auto) [place] # (Auto) Eos # (Auto) Baso # (Auto) Abs Immat Gran (auto) Absolute Neuts (auto) Absolute Nucleated RBC Nucleated RBC % (auto) Sodium Potassium Chloride Carbon Dioxide Anion Gap BUN Creatinine Estim Creat Clear Calc Estimated GFR Random Glucose Calcium Magnesium Total Bilirubin Direct Bilirubin AST ALT Alkaline Phosphatase Total Protein Albumin Urine Color Urine Appearance Urine pH Ur Specific [place] Urine Protein Urine Glucose (UA) Urine Ketones Urine Blood Urine Nitrite Ur Leukocyte Esterase Urine RBC Urine WBC Ur Squamous Epith Cells Urine Bacteria Urine Test Urine Opiates Screen Ur Barbiturates Screen Ur Phencyclidine Scrn Ur Amphetamines Screen U Benzodiazepines Scrn Urine Cocaine Screen U Marijuana (THC) Screen Ethyl Alcohol Gayatri species DNA Pending Chlam trachomat DNA PCR NOT DETECTED Coronavirus (PCR) [place] DNA Probe Pending N.gonorrhoeae DNA (PCR) NOT DETECTED Trichomonas DNA Probe Pending DS: Summary Hospital Course Hospital Course: ADM NOTE Narrative: THE PATIENT IS A 34-YEAR-OLD FEMALE REFERRED TO THE [facility] BY AMBULANCE. REPORTEDLY THE PATIENT'S BOYFRIEND HAD CALLED THE AMBULANCE SECONDARY TO REPORTED CONCERNS THAT THE PATIENT HAD BEEN UP ABUSING ANXIETY MEDICATIONS IN THE EMERGENCY ROOM THE PATIENT WAS LETHARGIC. SHE HAS A REPORTED DIAGNOSIS OF BIPOLAR DISORDER CURRENTLY ON SEROQUEL AND METHADONE SHE IS ON SEROQUEL 100 MG IN THE MORNING 200 MG AT BEDTIME PATIENT IS ALSO ON METHADONE 65 MG DAILY THE PATIENT HAD ORIGINALLY REPORTEDLY PRESENTED FROM [facility] WHO CALLED 911 TO TRANSPORT HER TO THE EMERGENCY ROOM SECONDARY TO SEVERE MOOD LABILITY AND REPORTEDLY EXPRESSING A WISH TO . PATIENT REPORTEDLY HAS BEEN ABUSING HEROIN AND COCAINE IN ADDITION TO TAKING METHADONE. THE PATIENT WAS ADMITTED TO CENTER OF PS[facility]IAT[facility] ON A CONDITIONAL VOLUNTARY SHE DID PUT IN A 3 DAY NOTICE. SHE SEEMED TO BE SOMEWHAT AND FAMILIAR TO CONDITIONS IN HIS PSYCHIATRIC HOSPITAL. SHE STATED SHE JUST WANTED TO GET ON HER MEDICATION. SHE APPARENTLY HAS NOT HAD ANY RECENT PSYCHIATRIC PROVIDERS HAD BEEN ON SEROQUEL IN THE PAST SHE THOUGHT PERHAPS DEPAKOTE OR LITHIUM IN THE PAST THE PATIENT WAS QUITE IRRITABLE HOSTILE AGITATED REFUSING TO GET OUT OF BED COMPLAINING OF WITHDRAWAL SYMPTOMS. SHE WAS CONTINUED ON HER SCHEDULE DOSE OF METHADONE. SHE HAD ADDITIONAL DOSES OF CLONIDINE ATIVAN AND WAS EVENTUALLY PUT ON GABAPENTIN SCHEDULED AND SEROQUEL SCHEDULED SPOKE TO PATIENT'S GRANDMOTHER WHO STATED THE PATIENT HAS NOT BEEN SUICIDAL. THE PATIENT HAD TAKEN SEROQUEL TO 300 MG BEFORE BEING EVALUATED AND WAS OVERLY SEDATED. PATIENT GRADUALLY AFTER DETOX BECAME MORE STABLE FUTURE ORIENTED. WAS PICKED UP BY HER BOYFRIEND. PATIENT STATED THAT SHE WISHED SOBRIETY THAT SHE DID GET TESTED GENERALLY AT THE METHADONE CLINIC. SHE DESCRIBED ELEVATED MOOD STATES WITH RACING THOUGHTS HYPERACTIVITY AND AND PERIODS OF DEPRESSION. THE PATIENT ABDOMEN DID NOT WANT TO START A MOOD STABILIZING AGENT BESIDES SEROQUEL AND GABAPENTIN. SHE WAS STABLE AND FUTURE ORIENTED AT TIME OF DISCHARGE AND WAS AGREEABLE TO BEING SEEN AND COUNSELING AND PSYCHIATRIC FOLLOW-UP. PATIENT GENERALLY HAS NOT RECEIVED OUTPATIENT PSYCHIATRIC TREATMENT SHE STATES SHE HAS GENERALLY DONE BETTER WHEN SHE HAS FOLLOWED THIS. PATIENT HAD A 3 DAY NOTICE WAS NOT COMMITTABLE AND FAMILY DID NOT FEEL SECTION 35 WAS NEEDED. 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
[2020-01-18 13:32] LABS: BV Int Neg Control Negative (Negative); BV Int Pos Control Positive (Positive)
== END 2020-01-18 13:06 | disposition home or self-care (01) | DRG 753 ==
LOC: HO.ED 01-14 01:00 → HO.PM5 01-14 01:10
PROVIDERS: Nurse Practitioner Acute Care; Nurse Practitioner Primary Care; Physician Assistant; Admitting Provider Psychiatry & Neurology Psychiatry; Emergency Provider Student in an Organized Health Care Education/Training Program; Visit Provider Psychiatry & Neurology Psychiatry
DX: F31.89 Other bipolar disorder (principal); R45.851 Suicidal ideations; F43.10 Post-traumatic stress disorder, unspecified; F11.23 Opioid dependence with withdrawal; F17.210 Nicotine dependence, cigarettes, uncomplicated; Z71.6 Tobacco abuse counseling; Z20.828 Contact with and (suspected) exposure to other viral communicable diseases; R94.31 Abnormal electrocardiogram [ECG] [EKG]; Z79.899 Other long term (current) drug therapy
CPT/HCPCS: 36415; 80048; 80076; 80307; 80320; 81001; 81003; 81025; 83735; 85025; 87480; 87491; 87510; 87591; 87635; 87660; 93005; 99223; 99232; 99239; 99285

== ENCOUNTER 2020-01-24 18:15 | Emergency (ER) | payer MEDICAID, SELFPAY ==
[2020-01-24 19:28] VITALS: BP 115/62; PULSE 81; RESP 18; TEMP 36.9; O2SAT 97; BMI 30.9
[2020-01-24 20:11] LABS: Glucose Urine UA NEG (NEG); Leukocyte Esterase Urine NEG (NEG); Nitrite Urine NEG (NEG); PH 6.5 (5.0-8.0); Specific Gravity - Urine >= 1.030 (1.005-1.025); Urine Blood NEG (NEG); Urine Ketones NEG (NEG); Urine Protein NEG (NEG-TRACE)
[2020-01-24 20:13] LABS: Appearance Urine CLEAR; Color Urine YELLOW
[2020-01-24 20:15] LABS: UPreg QC Valid YES; Urine Pregnancy NEGATIVE (NEGATIVE)
[2020-01-24 20:17] LABS: Bacteria Urine TRACE /LPF; RBC Urine 0-2 /HPF (0); Squamous Epithelial Cell Urine 1+ /LPF; WBC Urine 0-2 /HPF (0-4)
--- NOTE | 2020-01-24 20:36 | ED.FEMALEGU ---
HPI - Female Genitourinary General Chief complaint: Urogenital-Female Stated complaint: STD TEST? Time Seen by Provider: 01/24/20 19:05 Source: patient Mode of arrival: ambulatory Limitations: no limitations History of Present Illness HPI Narrative: states she was informed by her boyfriend that he has Trichomonas/gonorrhea as he got tested today states she has had some foul-smelling vaginal discharge today and would like to get tested/treated for STD. MD elicited complaint: possible STD Pertinent past history: STI/STD Onset (ago): hour(s) Female Urogenital Radiation: Non-Radiating Related Data Home Medications Medication Instructions Recorded Confirmed methadone 65 mg PO DAILY 01/13/20 01/13/20 Previous Rx's Medication Instructions Recorded clonidine HCl 0.1 mg PO BID PRN 15 Days #15 tab 01/18/20 doxycycline hyclate 100 mg PO Q12H 7 Days #14 tab 01/18/20 gabapentin 400 mg PO TID 15 Days #45 cap 01/18/20 metronidazole 500 mg PO Q8H 7 Days #21 tab 01/18/20 naloxone [Narcan] 4 mg INTRANASAL Q2M PRN #1 ea 01/18/20 nicotine 21 mg TRANSDERMAL DAILY 15 Days ea 01/18/20 quetiapine 50 mg PO DAILY PRN 15 Days #15 tab 01/18/20 quetiapine 100 mg PO DAILY 15 Days #0 01/18/20 quetiapine [Seroquel] 300 mg PO BEDTIME 15 Days #0 tab 01/18/20 trazodone 50 mg PO BEDTIME PRN 15 Days #1 tab 01/18/20 fluconazole [Diflucan] 150 mg PO Q3D #2 tab 01/24/20 Allergies Allergy/AdvReac Type Severity Reaction Status Date / Time No Known Allergies Allergy Verified 01/12/20 22:14 [No Known Allergies*] Review of Systems Review of Systems: Constitutional: No Weight loss, No Fever, No Chills, No Night Sweats, No Fatigue, No Malaise ENT/Mouth: No Hearing loss, No Ear Pain, No Nasal Congestion, No Sinus Pain, No Hoarseness, No sore throat, No Rhinorrhea, No Swallowing Difficulty Eyes: No Eye Pain, No Swelling, No Redness, No Foreign Body, No Discharge, No Vision Changes Cardiovascular: No Chest Pain, No SOB, No Dyspnea on Exertion, No Orthopnea, No Edema, No Palpitations Respiratory: No Cough, No Sputum, No Wheezing, No Smoke Exposure, No Dyspnea Gastrointestinal: No Nausea, No Vomiting, No Diarrhea, No Constipation, No abdominal Pain, No Hematochezia, No Melena Genitourinary: no irregular bleeding, No Dysuria, No Urinary Frequency, No Hematuria, No Urinary Incontinence, No Urgency, No Flank Pain, No Urinary Flow Changes, No Hesitancy Musculoskeletal: No joint pain, No Myalgias, No Joint Swelling Skin: No Skin Lesions, No rash Heme/Lymph: No Bruising, No Bleeding,No Lymphadenopathy Endocrine: No Polyuria, No Polydipsia, No Temperature Intolerance Yes all other systems are reviewed and are negative [facility] Past Medical History Attestation statement: The following information was validated with the patient. Medical History (Updated 01/24/20 @ 20:39 by Eatson Figueroa NP) Anxiety Depression PTSD (post-traumatic stress disorder) Social History Social History Household Members: Other Housing: Apartment 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: never Smoking Status: Unknown if ever smoked Tobacco Type: Cigarette Packs Per Day: 1.5 Cigarettes Per Day: 30.0 Years Smoked: 23 Second Hand Smoke Exposure: Yes Use of substances other than those prescribed or required for medical reasons: No Substance Use Type: Crack/Cocaine and Opiates Advance Directives: No Advance Directives Information Provided: No Physical Exam Vital Signs: Vital Signs: Vital Signs Temp Pulse Resp BP Pulse Ox 01/24/20 19:28 98.4 F 81 18 115/62 97 Body Mass Index 30.9 reviewed Const: General: cooperative and healthy appearing; No acute distress or intoxicated appearing Nutritional Appearance: average body habitus Orientation/consciousness: patient oriented x3 Neck: Neck: Yes normal visual inspection, No positive Brudzinski's sign, No positive Kernig's sign and No tender Thyroid: Thyroid normal Chest: Chest palpation & inspection: normal inspection of the chest Resp: Effort & Inspection: normal respiratory effort Cardio: Jugular venous distension: no JVD GI: Inspection: Yes normal to inspection Percussion: Yes normal to percussion Auscultation: normal bowel sounds : General: Yes no CVA tenderness Back/Spine/Pelvis: Back: no CVA tenderness Neuro: General: patient oriented x3 Extrem: General: Yes normal to inspection Course Course Course Narrative: check swabs/ emp tx with cef/ azitro/ flagyl. Will ref to [facility] for full quach testing. MDM - Female Genitourinary Lab Data Labs: Lab Results 01/24/20 Range/Units 19:50 Urine Color YELLOW Urine Appearance CLEAR Urine pH 6.5 (5.0-8.0) Ur Specific [place] >= 1.030 H (1.005-1.025) Urine Protein NEG (NEG-TRACE) MG/DL Urine Glucose (UA) NEG (NEG) MG/DL Urine Ketones NEG (NEG) MG/DL Urine Blood NEG (NEG) Urine Nitrite NEG (NEG) Ur Leukocyte Esterase NEG (NEG) Urine RBC 0-2 (0) /HPF Urine WBC 0-2 (0-4) /HPF Ur Squamous Epith Cells 1+ /LPF Urine Bacteria TRACE /LPF Urine Test NEGATIVE (NEGATIVE) Discharge Plan Discharge Clinical Impression: Exposure to STD Vaginitis Qualifiers: Chronicity: acute Qualified Code(s): N76.0 - Acute vaginitis Patient Disposition: Home, Self-Care Instructions: Sexually Transmitted Diseases (ED), Trichomoniasis (ED) Additional Instructions: no further sexual activity until your test results are back and UR symptom free Follow up with [facility] as discussed Return if any concerns or worsening symptoms We have empirically treated you for the STDs that you been exposed to however please follow-up with the health center to get full panel testing Thank you Prescriptions: New fluconazole [Diflucan] 150 mg tablet 150 mg PO Q3D Qty: 2 RF: 0 No Action methadone 65 mg PO DAILY RF: 0 clonidine HCl 0.1 mg Tablet 0.1 mg PO BID PRN (Reason: OPIATE WITHDRAWL) 15 Days Qty: 15 RF: 1 trazodone 50 mg Tablet 50 mg PO BEDTIME PRN (Reason: Insomnia) 15 Days Qty: 1 RF: 0 metronidazole 500 mg Tablet 500 mg PO Q8H 7 Days Qty: 21 RF: 0 nicotine 21 mg/24 hr Patch 24 Hour 21 mg transdermal DAILY 15 Days RF: 0 doxycycline hyclate 100 mg Tablet 100 mg PO Q12H 7 Days Qty: 14 RF: 0 quetiapine 50 mg Tablet 50 mg PO DAILY PRN (Reason: Anxiety/Restlessness) 15 Days Qty: 15 RF: 0 gabapentin 400 mg capsule 400 mg PO TID 15 Days Qty: 45 RF: 1 quetiapine [Seroquel] 300 mg Tablet 300 mg PO BEDTIME 15 Days Qty: 0 RF: 1 quetiapine 100 mg tablet 100 mg PO DAILY 15 Days Qty: 0 RF: 1 Narcan 4 mg/actuation spray,non-aerosol 4 mg intranasal Q2M PRN (Reason: opioid overdose) Qty: 1 RF: 1 Referrals: Physician,Unknown [Primary Care Provider] - 5 days
[2020-01-25 09:50] LABS: BV Int Neg Control Negative (Negative); BV Int Pos Control Positive (Positive)
== END 2020-01-24 21:00 | disposition home or self-care (01) ==
PROVIDERS: Nurse Practitioner Primary Care; Emergency Provider Internal Medicine
DX: N76.0 Acute vaginitis (principal); Z20.2 Contact with and (suspected) exposure to infections with a predominantly sexual mode of transmission; F17.210 Nicotine dependence, cigarettes, uncomplicated; Z71.6 Tobacco abuse counseling
CPT/HCPCS: 81001; 81003; 81015; 81025; 87480; 87491; 87510; 87591; 87660; 96372; 99284; J0696

== ENCOUNTER 2020-01-28 17:16 | Emergency (ER) | payer MEDICAID, SELFPAY ==
[2020-01-28 17:54] VITALS: BP 123/71; PULSE 115; RESP 18; TEMP 36.3; O2SAT 96; BMI 23.1
--- NOTE | 2020-01-28 18:13 | ED_ITS ---
HPI - Psych General Chief Complaint: Psychiatric Symptoms Stated Complaint: crisis Time Seen by Provider: 01/28/20 17:58 Source: patient Mode of arrival: ambulatory History of Present Illness HPI Narrative: 34-year-old female with a past medical history of anxiety, depression, psychosis, opiate withdrawal, PTSD, substance abuse presenting to ED complaining of suicidal ideations, and states she need to stop picking at her body when she is high. Admits to using heroin, crack, and marijuana [employer]. Reports was tripping with hallucinations [employer], but denies at present. Reports occasional ETOH use. Also reports noncompliance with medications, and has been off methadone x1 week. additionally reports exposure to Trichomonas and gonorrhea from ex-boyfriend, was seen and treated in the ED on 01/23. denies HI, hallucinations, abdominal pain, nausea /vomiting MD complaint: suicidal ideation and feels depressed Related Data Home Medications Medication Instructions Recorded Confirmed methadone 65 mg PO DAILY 01/13/20 01/13/20 Previous Rx's Medication Instructions Recorded clonidine HCl 0.1 mg PO BID PRN 15 Days #15 tab 01/18/20 doxycycline hyclate 100 mg PO Q12H 7 Days #14 tab 01/18/20 gabapentin 400 mg PO TID 15 Days #45 cap 01/18/20 metronidazole 500 mg PO Q8H 7 Days #21 tab 01/18/20 naloxone [Narcan] 4 mg INTRANASAL Q2M PRN #1 ea 01/18/20 nicotine 21 mg TRANSDERMAL DAILY 15 Days ea 01/18/20 fluconazole [Diflucan] 150 mg PO Q3D #2 tab 01/24/20 clonidine HCl 0.1 mg PO BID PRN #14 tab 01/28/20 doxycycline hyclate 100 mg PO BID #14 cap 01/28/20 gabapentin 400 mg PO TID #30 cap 01/28/20 metronidazole [Flagyl] 500 mg PO TID #21 tab 01/28/20 quetiapine [Seroquel] 100 mg PO DAILY #14 tab 01/28/20 quetiapine [Seroquel] 300 mg PO BEDTIME #14 tab 01/28/20 trazodone 50 mg PO BEDTIME PRN #14 tab 01/28/20 Allergies Allergy/AdvReac Type Severity Reaction Status Date / Time No Known Allergies Allergy Verified 01/12/20 22:14 [No Known Allergies*] Review of Systems Review of Systems: Constitutional: No Weight loss, No Fever, No Chills Gastrointestinal: No Nausea, No Vomiting, No Diarrhea, No Constipation, No Abdominal pain Genitourinary: No irregular bleeding, No Dysuria, No Urinary Frequency, No Hematuria Musculoskeletal: No joint pain, No Myalgias, No Joint Swelling Skin: + Skin Lesions, No rash Psych: + Anxiety/Panic, +Depression, + SI, No HI/AH/VH, + Social Issues PMFSH Past Medical History Attestation statement: The following information was validated with the patient. Medical History Acute anxiety Anxiety Depression Depression Drug-induced psychotic disorder Opiate withdrawal PTSD (post-traumatic stress disorder) Social History Social History Household Members: Other Housing: Apartment 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: unknown Smoking Status: Current every day smoker Tobacco Type: Cigarette Packs Per Day: 1.5 Cigarettes Per Day: 30.0 Years Smoked: 23 Smoked in Last 30 Days: Yes Second Hand Smoke Exposure: Yes Use of substances other than those prescribed or required for medical reasons: Yes Substance Use Type: Heroin Substance Use Frequency: Daily Last Used Substance: Just Prior to Admission Any prior treatment program specific to substance use: Yes Advance Directives: No Advance Directives Information Provided: No Physical Exam Vital Signs: Vital Signs: Vital Signs Temp Pulse Resp BP Pulse Ox 01/28/20 17:54 97.3 F 115 H 18 123/71 96 Body Mass Index 23.1 Const: Other: appears under the influence. Walking around room General: cooperative and healthy appearing Limitations: no limitations HENMT: Head: Yes normal to inspection Ears: hearing grossly normal bilaterally General nose exam: Normal external nose present Face and sinus: Yes normal facial exam Eyes: General: appearance normal, both eyes and all related structures EOM: EOMs intact bilaterally Neck: Neck: Yes normal visual inspection Resp: Effort & Inspection: normal respiratory effort Cardio: Rate: regular rate GI: Inspection: Yes normal to inspection Palpation (GI): Soft to palpation, nontender, no guarding and not rigid Skin: Other: multiple skin lesions /scabs noted to bilateral arms and bilateral lower extremities. Some with mild surrounding erythema. No fluctuance /induration/ or streaking Neuro: Gait exam (Neuro): Normal gait present Extrem: General: Yes normal to inspection Course Course Course Narrative: --patient was also evaluated by Dr. Hall who discharged patient. MDM - Psych MDM Narrative Medical decision making narrative: 34-year-old female with a past medical history of anxiety, depression, psychosis, opiate withdrawal, PTSD, substance abuse presenting to ED complaining of suicidal ideations, and states she need to stop picking at her body when she is high. On exam tachycardic, under the influence, multiple skin scabs noted to bilateral UE/LE. Patient was already treated for STIs. Will initiate Keflex for skin wounds Plan: DRE [place] Restraints Face to Face Assessment: Face to Face Assessment: Current Situation: After assessment of the patient, a review of the pertinent medical record and a discussion with nursing staff, I feel the patient requires a restrain intervention. Reaction To: [] Medical Condition: [] Behavioral State: [] Continued Need: [] Discharge Plan Discharge Clinical Impression: Bipolar disorder, Opiate dependence Patient Disposition: Home, Self-Care Additional Instructions: taking medication and follow-up with her psychiatrist and [facility] Prescriptions: New quetiapine [Seroquel] 300 mg tablet 300 mg PO BEDTIME Qty: 14 RF: 0 quetiapine [Seroquel] 100 mg tablet 100 mg PO DAILY Qty: 14 RF: 0 trazodone 50 mg tablet 50 mg PO BEDTIME PRN (Reason: insomnia) Qty: 14 RF: 0 gabapentin 400 mg capsule 400 mg PO TID Qty: 30 RF: 0 doxycycline hyclate 100 mg capsule 100 mg PO BID Qty: 14 RF: 0 metronidazole [Flagyl] 500 mg tablet 500 mg PO TID Qty: 21 RF: 0 clonidine HCl 0.1 mg tablet 0.1 mg PO BID PRN (Reason: opiate withdrawal) Qty: 14 RF: 0 No Action fluconazole [Diflucan] 150 mg tablet 150 mg PO Q3D Qty: 2 RF: 0 methadone 65 mg PO DAILY RF: 0 clonidine HCl 0.1 mg Tablet 0.1 mg PO BID PRN (Reason: OPIATE WITHDRAWL) 15 Days Qty: 15 RF: 1 metronidazole 500 mg Tablet 500 mg PO Q8H 7 Days Qty: 21 RF: 0 nicotine 21 mg/24 hr Patch 24 Hour 21 mg transdermal DAILY 15 Days RF: 0 doxycycline hyclate 100 mg Tablet 100 mg PO Q12H 7 Days Qty: 14 RF: 0 gabapentin 400 mg capsule 400 mg PO TID 15 Days Qty: 45 RF: 1 Narcan 4 mg/actuation spray,non-aerosol 4 mg intranasal Q2M PRN (Reason: opioid overdose) Qty: 1 RF: 1 Interventions: ED Discharge Assessment Last Done: 01/28/20 20:25 Discharge Date/Time: 01/28/20 20:37
--- NOTE | 2020-01-28 18:39 | PC.NURSE ---
Pt reports that she gets methadone from [facility] in [place], methadone to be verified.
--- NOTE | 2020-01-28 19:04 | PC.NURSE ---
Report received. Pt currently resting in room. No complaints at this time. Calm and cooperative.
--- NOTE | 2020-01-28 19:28 | PC.NURSE ---
Pt agiatated, demanding medication, refusing to provide urine sample. Screaming at RN and [facility]. Trashed room, throwing food. Provider notified.
[2020-01-28] MEDS: QUEtiapine Fumarate 300 MG TABLET PO (19:32)
--- NOTE | 2020-01-28 20:09 | ED.PSYCH ---
HPI - Psych General Chief Complaint: Psychiatric Symptoms Stated Complaint: crisis Time Seen by Provider: 01/28/20 17:58 Source: patient Mode of arrival: ambulatory Limitations: no limitations History of Present Illness HPI Narrative: patient history of PTSD is, bipolar disorder substance abuse homeless discharge from [facility] on 01/13 . Patient for last 2 days has not taken her medications asking for medication refill very anxious on arrival picking on her skin denies suicidal ideation at this time feels safe to go home just asking for the prescriptions MD complaint: anxiety History of same: Yes Relieving factors: none Exacerbating factors: none Related Data Home Medications Medication Instructions Recorded Confirmed methadone 65 mg PO DAILY 01/13/20 01/13/20 Previous Rx's Medication Instructions Recorded clonidine HCl 0.1 mg PO BID PRN 15 Days #15 tab 01/18/20 doxycycline hyclate 100 mg PO Q12H 7 Days #14 tab 01/18/20 gabapentin 400 mg PO TID 15 Days #45 cap 01/18/20 metronidazole 500 mg PO Q8H 7 Days #21 tab 01/18/20 naloxone [Narcan] 4 mg INTRANASAL Q2M PRN #1 ea 01/18/20 nicotine 21 mg TRANSDERMAL DAILY 15 Days ea 01/18/20 fluconazole [Diflucan] 150 mg PO Q3D #2 tab 01/24/20 Allergies Allergy/AdvReac Type Severity Reaction Status Date / Time No Known Allergies Allergy Verified 01/12/20 22:14 [No Known Allergies*] Review of Systems Review of Systems: Constitutional : No Fever, No Chills ENT/Mouth : No Ear Pain, No Nasal Congestion, No sore throat Eyes: No Eye Pain, No Swelling, No Redness Cardiovascular : No Chest Pain, No SOB Respiratory : No Cough, No Sputum, No Dyspnea Gastrointestinal : No Nausea, No Vomiting, No Diarrhea, No Hematochezia, No Melena Genitourinary : No Dysuria, No Urinary Frequency, No Hematuria Musculoskeletal : No Myalgias Skin : No Skin Lesions, No rash Neuro : No Weakness, No Numbness, No Paresthesias, No Dizziness, No Headache Psych : positive Anxiety, positive Depression, negative SI/HI Heme/Lymph: No Lymphadenopathy Endocrine : No Polyuria, No Polydipsia PMFSH Past Medical History Medical History Acute anxiety Anxiety Depression Depression Drug-induced psychotic disorder Opiate withdrawal PTSD (post-traumatic stress disorder) Social History Social History Household Members: Other Housing: Apartment 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: unknown Smoking Status: Current every day smoker Tobacco Type: Cigarette Packs Per Day: 1.5 Cigarettes Per Day: 30.0 Years Smoked: 23 Smoked in Last 30 Days: Yes Second Hand Smoke Exposure: Yes Use of substances other than those prescribed or required for medical reasons: Yes Substance Use Type: Heroin Substance Use Frequency: Daily Last Used Substance: Just Prior to Admission Any prior treatment program specific to substance use: Yes Advance Directives: No Advance Directives Information Provided: No Physical Exam Vital Signs: Vital Signs: Vital Signs Temp Pulse Resp BP Pulse Ox 01/28/20 17:54 97.3 F 115 H 18 123/71 96 Body Mass Index 23.1 Appearance: Alert. Oriented X3. No acute distress. very anxious picking on her skin Eyes: Pupils equal, round and reactive to light. ENT: Pharynx normal. Neck: Normal inspection. Neck supple. CVS: Normal heart rate and rhythm. Pulses normal. Respiratory: No respiratory distress. Breath sounds normal. Abdomen: Soft and nontender. Skin: Skin warm and dry. Normal skin color. Normal skin turgor. multiple scratch nieves on extremities Extremities: No lower extremity edema. Good range of movement Neuro: Oriented X 3. No motor deficit. No sensory deficit. Course Course Course Narrative: patient very anxious on arrival does not want to be admitted or seen by therapist feels safe to go home asking for a prescription to be filled will give her medication feel and advised her to follow-up with psychiatrist MDM - Psych Restraints Face to Face Assessment: Face to Face Assessment: Current Situation: After assessment of the patient, a review of the pertinent medical record and a discussion with nursing staff, I feel the patient requires a restrain intervention. Reaction To: [] Medical Condition: [] Behavioral State: [] Continued Need: [] Discharge Plan Discharge Clinical Impression: Suicidal ideation, Substance abuse Prescriptions: No Action fluconazole [Diflucan] 150 mg tablet 150 mg PO Q3D Qty: 2 RF: 0 methadone 65 mg PO DAILY RF: 0 clonidine HCl 0.1 mg Tablet 0.1 mg PO BID PRN (Reason: OPIATE WITHDRAWL) 15 Days Qty: 15 RF: 1 metronidazole 500 mg Tablet 500 mg PO Q8H 7 Days Qty: 21 RF: 0 nicotine 21 mg/24 hr Patch 24 Hour 21 mg transdermal DAILY 15 Days RF: 0 doxycycline hyclate 100 mg Tablet 100 mg PO Q12H 7 Days Qty: 14 RF: 0 gabapentin 400 mg capsule 400 mg PO TID 15 Days Qty: 45 RF: 1 Narcan 4 mg/actuation spray,non-aerosol 4 mg intranasal Q2M PRN (Reason: opioid overdose) Qty: 1 RF: 1
--- NOTE | 2020-01-28 20:33 | PC.NURSE ---
Pt currently denies SI or urges to SH. Discharge paperwork completed, pt verbalizes understanding. Prescriptions given to patient. Pt calm, and cooperative.
== END 2020-01-28 20:37 | disposition home or self-care (01) ==
PROVIDERS: Emergency Provider Internal Medicine
DX: F43.10 Post-traumatic stress disorder, unspecified (principal); R45.851 Suicidal ideations; F11.10 Opioid abuse, uncomplicated; Z79.899 Other long term (current) drug therapy; F17.200 Nicotine dependence, unspecified, uncomplicated; Z71.6 Tobacco abuse counseling
CPT/HCPCS: 99284

== ENCOUNTER 2020-02-29 16:55 | Outpatient (REF) | payer MEDICAID, SELFPAY | END 2020-02-29 16:56 | disposition home or self-care (01) | LOC: HO.LAB 16:55 | PROVIDERS: Visit Provider Internal Medicine | DX: Z20.828 Contact with and (suspected) exposure to other viral communicable diseases (principal) | CPT/HCPCS: C9803; U0003 ==

== ENCOUNTER 2020-06-07 16:23 | Emergency (ER) | payer MEDICAID, SELFPAY ==
[2020-06-07 16:39] VITALS: BP 102/65; PULSE 95; RESP 16; TEMP 36.6; O2SAT 95; BMI 24.9
== END 2020-06-07 18:45 | disposition left against medical advice (07) ==
PROVIDERS: Emergency Provider Emergency Medicine
DX: M54.5 Low back pain (principal); M79.672 Pain in left foot; M79.671 Pain in right foot
CPT/HCPCS: 99282

== ENCOUNTER 2020-06-08 16:00 | Emergency (ER) | payer MEDICAID, SELFPAY ==
--- NOTE | ~2020-06-08 | XR_ITS ---
EXAMINATION: XR CHEST CLINICAL INFORMATION: Thoracic pain with question of pneumonia COMPARISON: None TECHNIQUE: 2 views of the chest were obtained. FINDINGS: No significant abnormality is noted involving the heart, lungs, mediastinum, bony thorax or soft tissues. XR/XR chest 2V IMPRESSION: Unremarkable examination.
[2020-06-08 16:17] VITALS: BP 134/59; PULSE 89; RESP 18; TEMP 36.8; O2SAT 95; BMI 24.0
[2020-06-08 16:30] VITALS: BP 112/69; PULSE 94; RESP 18; TEMP 36.9; O2SAT 99
[2020-06-08 16:35] LABS: Glucose Urine UA NEG (NEG); Leukocyte Esterase Urine NEG (NEG); Nitrite Urine NEG (NEG); PH 5.5 (5.0-8.0); Specific Gravity - Urine >= 1.030 (1.005-1.025); Urine Blood NEG (NEG); Urine Ketones 5 MG/DL (NEG); Urine Protein TRACE MG/DL (NEG-TRACE)
[2020-06-08 16:36] LABS: Appearance Urine CLEAR; Color Urine YELLOW
[2020-06-08 16:37] LABS: UPreg QC Valid YES; Urine Pregnancy NEGATIVE (NEGATIVE)
--- NOTE | 2020-06-08 16:43 | ED.GENADULT ---
HPI - General Adult General Chief complaint: General Medical Stated complaint: SWOLLEN FOOT Time Seen by Provider: 06/08/20 16:16 Source: patient Mode of arrival: ambulatory Limitations: no limitations History of Present Illness HPI narrative: 34-year-old female walked in with multiple complaints. Patient had tooth infection patient has been taking Augmentin for the started few days ago, patient now complaining mid back pain, and severe pain with redness over the right big toe. Patient declined any trauma to the back, no difficulty breathing, pain described as sharp midthoracic pain with no radiation increases his movement and taking a deep breath, nothing relieves the pain, pain is moderate 5/10 and constant, patient never had this pain before. Patient also complains right big toe pain and swelling which appears to be gout. Patient also reportedly was tested positive for sexually transmitted disease (chlamydia and gonorrhea). Patient is requesting to be treated. Related Data Home Medications Medication Instructions Recorded Confirmed methadone 65 mg PO DAILY 01/13/20 01/13/20 Previous Rx's Medication Instructions Recorded clonidine HCl 0.1 mg PO BID PRN 15 Days #15 tab 01/18/20 doxycycline hyclate 100 mg PO Q12H 7 Days #14 tab 01/18/20 gabapentin 400 mg PO TID 15 Days #45 cap 01/18/20 metronidazole 500 mg PO Q8H 7 Days #21 tab 01/18/20 naloxone [Narcan] 4 mg INTRANASAL Q2M PRN #1 ea 01/18/20 nicotine 21 mg TRANSDERMAL DAILY 15 Days ea 01/18/20 fluconazole [Diflucan] 150 mg PO Q3D #2 tab 01/24/20 clonidine HCl 0.1 mg PO BID PRN #14 tab 01/28/20 doxycycline hyclate 100 mg PO BID #14 cap 01/28/20 gabapentin 400 mg PO TID #30 cap 01/28/20 metronidazole [Flagyl] 500 mg PO TID #21 tab 01/28/20 quetiapine [Seroquel] 100 mg PO DAILY #14 tab 01/28/20 quetiapine [Seroquel] 300 mg PO BEDTIME #14 tab 01/28/20 trazodone 50 mg PO BEDTIME PRN #14 tab 01/28/20 doxycycline hyclate 100 mg PO DAILY #14 tab 06/08/20 indomethacin 25 mg PO TID #12 cap 06/08/20 metronidazole [Flagyl] 2,000 mg PO ONCE #3 tab 06/08/20 Allergies Allergy/AdvReac Type Severity Reaction Status Date / Time No Known Allergies Allergy Verified 01/12/20 22:14 [No Known Allergies*] Review of Systems Review of Systems: All other systems are reviewed and are negative Constitutional: Reports as per HPI and Reports no additional constitutional complaints Eyes: Reports as per HPI and Reports no additional eye complaints Reports system reviewed and no additional complaints, except as documented Cardiovascular: Reports as per HPI and Reports no additional cardiovascular complaints Respiratory: Reports as per HPI and Reports no additional respiratory complaints Gastrointestinal: Reports as per HPI and Reports no additional gastrointestinal complaints Genitourinary: Reports no additional female genitourinary complaints Musculoskeletal: Reports no additional musculoskeletal complaints Skin/Breast: Reports system reviewed and no additional complaints, except as docu Psychiatric: Reports no additional psychiatric complaints Endocrine: Reports no additional endocrine complaints Hematologic/Lymphatic: Reports no additional hematologic/lymphatic complaints Allergic/Immunologic: Reports no additional allergic/immunologic complaints Reports system reviewed and no additional complaints, except as documented and Reports Abnormal speech present [facility] Past Medical History Medical History Acute anxiety Anxiety Depression Depression Drug-induced psychotic disorder History of drug dependence/abuse Opiate withdrawal PTSD (post-traumatic stress disorder) Social History Social History Household Members: Other Housing: Apartment 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: never Smoking Status: Current every day smoker Tobacco Type: Cigarette Packs Per Day: 1.5 Cigarettes Per Day: 30.0 Years Smoked: 23 Smoked in Last 30 Days: Yes Second Hand Smoke Exposure: Yes Use of substances other than those prescribed or required for medical reasons: Yes Substance Use Type: Heroin Substance Use Frequency: Monthly Advance Directives: No Advance Directives Information Provided: Yes Physical Exam Vital Signs: Vital Signs: Last Vital Signs Temp 98.5 F 06/08/20 16:30 Pulse 94 06/08/20 16:30 Resp 18 06/08/20 16:30 BP 112/69 06/08/20 16:30 Pulse Ox 99 06/08/20 16:30 Body Mass Index 24.0 Vital signs have been reviewed as appeared to be correct. Blood pressure normal. Heart rate normal. Respiration rate normal. Temperature normal. Oxygen saturation normal. Appearance: Alert. Oriented X3. No acute distress. Head: Normal external exam. Normocephalic. Atraumatic. No Knott signs noted. No raccoon eyes noted Eyes: PERRLA. EOMI. Conjunctiva and sclera normal. Eyelids normal. ENT: Broken and tender right lower 3rd molar tooth no tenderness in the gum around it, no fluctuation or abscess is appreciated. TM's Normal. Pharynx normal. Uvula midline. Moist mucous membranes. No trismus noted. No drooling noted. No muffled voice noted. Neck: Normal inspection. Neck supple. FROM. No adenopathy. Thyroid Normal. No meningeal signs. No neck mass noted. CVS: Normal heart rate and rhythm. Heart sound normal. No murmurs noted. Pulses normal throughout. Respiratory: No respiratory distress. Painless inspiration. Breath sounds normal. No wheezes/rales/rhonchi noted. Chest nontender. No accessory muscle usage noted or decreased air movement noted. Abdomen: Soft and nontender. Bowel sounds normal in all 4 quadrants. No distention noted. No organomegaly noted. No visible injury noted. Back: No CVA tenderness. Full range of motion noted. Skin: Skin warm and dry. Normal skin color. Normal skin turgor. No rashes/lesions/lacerations noted. Extremities: Right big toe base is tender to touch, positive redness, positive hotness, patient was diffuse IV scar nieves along both upper extremities. Neuro: Oriented X 3. No motor deficit. No sensory deficit. Reflexes normal. Course Course Course Narrative: Assessment and plan. 34-year-old female with history of IV drug abuse presented with back pain, toothache and facial swelling, reportedly positive for STDs, right big toe gout arthritis. 1. Patient is already taking Augmentin for dental infection patient was instructed to follow up with her dentist. 2. Right big toe gout arthritis NSAIDs. 3. Reportedly positive for STDs (GC/chlamydia) and patient with symptoms, patient was treated with 500 mg Rocephin IM, and doxycycline 100 mg p.o. b.i.d. for 10 days. Will treat for Trichomonas with Flagyl 2 g daily for 3 days. 3. Slight leukocytosis, chest x-ray showed no concern of osteomyelitis in the thoracic spine, labs and physical exam were not consistent with severe sepsis, blood culture is pending. Medical Decision Making Lab Data Lab results reviewed: Yes I reviewed the patient's lab results. Result diagrams: 06/08/20 16:56 06/08/20 16:56 Labs: Lab Results 06/08/20 06/08/20 06/08/20 Range/Units 16:24 16:24 16:56 WBC 11.0 H (4.8-10.8) X10*3/uL RBC 3.36 L (4.20-5.50) X10*6/uL Hgb 9.2 L (12.0-16.0) g/dl Hct 30.0 L (37-47) % MCV 89.3 (80-98) fL MCH 27.4 (27.0-33.0) pg MCHC 30.7 L (31.0-35.0) g/dl RDW 14.1 (11.0-16.0) % Plt Count 267 (160-400) X10*3/uL MPV 9.3 L (9.4-12.3) fL Immature Gran % (Auto) 0.5 H (0.0-0.4) % Neut % (Auto) 63.9 (45-73) % Lymph % (Auto) 27.7 (20-40) % [place] % (Auto) 6.8 (2-11) % Eos % (Auto) 0.9 (0-4) % Baso % (Auto) 0.2 (0-2) % Lymph # (Auto) 3.0 (1.2-4.9) X10*3/uL [place] # (Auto) 0.8 (0.1-1.2) X10*3/uL Eos # (Auto) 0.1 (0.0-0.4) X10*3/uL Baso # (Auto) 0.0 (0.0-0.2) X10*3/uL Abs Immat Gran (auto) 0.05 H (0.00-0.03) X10*3/uL Absolute Neuts (auto) 7.0 (2.0-8.3) X10*3/uL Absolute Nucleated RBC 0.000 (0.0-0.012) X10*3/uL Nucleated RBC % (auto) 0.0 (0.0-0.2) /100WBC Sodium (135-145) mmol/L Potassium (3.3-5.1) mmol/L Chloride (96-108) mmol/L Carbon Dioxide (22-29) mmol/L Anion Gap (12-20) BUN (9-16) mg/dL Creatinine (0.5-1.4) mg/dL Estim Creat Clear Calc Estimated GFR Random Glucose (60-115) mg/dL Calcium (8.4-10.2) mg/dL Urine Color YELLOW Urine Appearance CLEAR Urine pH 5.5 (5.0-8.0) Ur Specific [place] >= 1.030 H (1.005-1.025) Urine Protein TRACE (NEG-TRACE) MG/DL Urine Glucose (UA) NEG (NEG) MG/DL Urine Ketones 5 (NEG) MG/DL Urine Blood NEG (NEG) Urine Nitrite NEG (NEG) Ur Leukocyte Esterase NEG (NEG) Urine RBC 0 (0) /HPF Urine WBC 0 (0-4) /HPF Ur Squamous Epith Cells 2+ /LPF Urine Bacteria NONE /LPF Urine Test NEGATIVE (NEGATIVE) 06/08/20 Range/Units 16:56 WBC (4.8-10.8) X10*3/uL RBC (4.20-5.50) X10*6/uL Hgb (12.0-16.0) g/dl Hct (37-47) % MCV (80-98) fL MCH (27.0-33.0) pg MCHC (31.0-35.0) g/dl RDW (11.0-16.0) % Plt Count (160-400) X10*3/uL MPV (9.4-12.3) fL Immature Gran % (Auto) (0.0-0.4) % Neut % (Auto) (45-73) % Lymph % (Auto) (20-40) % [place] % (Auto) (2-11) % Eos % (Auto) (0-4) % Baso % (Auto) (0-2) % Lymph # (Auto) (1.2-4.9) X10*3/uL [place] # (Auto) (0.1-1.2) X10*3/uL Eos # (Auto) (0.0-0.4) X10*3/uL Baso # (Auto) (0.0-0.2) X10*3/uL Abs Immat Gran (auto) (0.00-0.03) X10*3/uL Absolute Neuts (auto) (2.0-8.3) X10*3/uL Absolute Nucleated RBC (0.0-0.012) X10*3/uL Nucleated RBC % (auto) (0.0-0.2) /100WBC Sodium 138 (135-145) mmol/L Potassium 4.4 (3.3-5.1) mmol/L Chloride 103 (96-108) mmol/L Carbon Dioxide 26 (22-29) mmol/L Anion Gap 13 (12-20) BUN 11 (9-16) mg/dL Creatinine 0.74 (0.5-1.4) mg/dL Estim Creat Clear Calc 93.3 Estimated GFR > 60 Random Glucose 91 (60-115) mg/dL Calcium 9.0 (8.4-10.2) mg/dL Urine Color Urine Appearance Urine pH (5.0-8.0) Ur Specific [place] (1.005-1.025) Urine Protein (NEG-TRACE) MG/DL Urine Glucose (UA) (NEG) MG/DL Urine Ketones (NEG) MG/DL Urine Blood (NEG) Urine Nitrite (NEG) Ur Leukocyte Esterase (NEG) Urine RBC (0) /HPF Urine WBC (0-4) /HPF Ur Squamous Epith Cells /LPF Urine Bacteria /LPF Urine Test (NEGATIVE) Imaging Data Chest x-ray: Radiologist's impression: No significant abnormality is noted involving the heart, lungs, mediastinum, bony thorax or soft tissues. Discharge Plan Discharge Clinical Impression: Sexually transmissible disease, Gout, arthritis, Pain, dental, Substance abuse Patient Disposition: Home, Self-Care Instructions: Sexually Transmitted Diseases (ED), Gout (ED) Additional Instructions: Follow-up with your dentist Prescriptions: New doxycycline hyclate 100 mg tablet 100 mg PO DAILY Qty: 14 RF: 0 metronidazole [Flagyl] 500 mg tablet 2,000 mg PO ONCE Qty: 3 RF: 0 indomethacin 25 mg capsule 25 mg PO TID Qty: 12 RF: 0 No Action fluconazole [Diflucan] 150 mg tablet 150 mg PO Q3D Qty: 2 RF: 0 methadone 65 mg PO DAILY RF: 0 clonidine HCl 0.1 mg Tablet 0.1 mg PO BID PRN (Reason: OPIATE WITHDRAWL) 15 Days Qty: 15 RF: 1 metronidazole 500 mg Tablet 500 mg PO Q8H 7 Days Qty: 21 RF: 0 nicotine 21 mg/24 hr Patch 24 Hour 21 mg transdermal DAILY 15 Days RF: 0 doxycycline hyclate 100 mg Tablet 100 mg PO Q12H 7 Days Qty: 14 RF: 0 gabapentin 400 mg capsule 400 mg PO TID 15 Days Qty: 45 RF: 1 Narcan 4 mg/actuation spray,non-aerosol 4 mg intranasal Q2M PRN (Reason: opioid overdose) Qty: 1 RF: 1 quetiapine [Seroquel] 300 mg tablet 300 mg PO BEDTIME Qty: 14 RF: 0 quetiapine [Seroquel] 100 mg tablet 100 mg PO DAILY Qty: 14 RF: 0 trazodone 50 mg tablet 50 mg PO BEDTIME PRN (Reason: insomnia) Qty: 14 RF: 0 gabapentin 400 mg capsule 400 mg PO TID Qty: 30 RF: 0 doxycycline hyclate 100 mg capsule 100 mg PO BID Qty: 14 RF: 0 metronidazole [Flagyl] 500 mg tablet 500 mg PO TID Qty: 21 RF: 0 clonidine HCl 0.1 mg tablet 0.1 mg PO BID PRN (Reason: opiate withdrawal) Qty: 14 RF: 0 Referrals: Physician,Unknown [Primary Care Provider] - 2 days
[2020-06-08 16:48] LABS: RBC Urine 0 /HPF (0); Squamous Epithelial Cell Urine 2+ /LPF; WBC Urine 0 /HPF (0-4)
[2020-06-08 17:01] LABS: MANUAL DIFF FLAG NO
[2020-06-08 17:03] LABS: Basophils Percent Auto 0.2 % (0-2); Eosinophils Absolute Auto 0.1 X10*3/uL (0.0-0.4); Eosinophils Percent Auto 0.9 % (0-4); Hemoglobin 9.2 g/dl (12.0-16.0); Imm Gran Abs Auto 0.05 X10*3/uL (0.00-0.03); Imm Gran Pct Auto 0.5 % (0.0-0.4); Lymphocytes Percent Auto 27.7 % (20-40); Mean Corpuscular HGB Conc 30.7 g/dl (31.0-35.0); Mean Corpuscular Hemoglobin 27.4 pg (27.0-33.0); Mean Corpuscular Volume 89.3 fL (80-98); Mean Platelet Volume 9.3 fL (9.4-12.3); Monocytes Absolute Auto 0.8 X10*3/uL (0.1-1.2); Monocytes Percent Auto 6.8 % (2-11); Neutrophils Percent Auto 63.9 % (45-73); Platelet Count 267 X10*3/uL (160-400); Red Blood Count 3.36 X10*6/uL (4.20-5.50); Red Cell Distribution Width 14.1 % (11.0-16.0)
[2020-06-08] MEDS: Ketorolac Tromethamine 30 MG/ML VIAL IVPUSH (17:19)
[2020-06-08] MEDS: cefTRIAXone sodium 500 MG, Lidocaine HCl 1 % MPF 1 ML IM (17:19)
[2020-06-08] MEDS: predniSONE 20 MG TABLET 40 MG PO (17:19)
[2020-06-08] MEDS: hydrOXYzine HCL 50 MG TABLET PO (17:19)
[2020-06-08] MEDS: 0.9 % Sodium Chloride 1,000 ML 999 ML IVCONT (17:25)
--- NOTE | 2020-06-08 17:29 | PC.NURSE ---
Pt very anxious reguarding IV, medication, hospital stay in general. Verbal reassurance given, requested and given snack. Pending test results. Pt rr even and unlabored, skin w/p/d, aox4, ambulates w/ steady gait.
[2020-06-08 17:30] LABS: Anion Gap 13 (12-20); Blood Urea Nitrogen 11 mg/dL (9-16); Carbon Dioxide 26 mmol/L (22-29); Chloride 103 mmol/L (96-108); Creatinine Clr Calc Pharmacy 93.3; Estimated Glomerular Filt Rate > 60; Glucose Random 91 mg/dL (60-115); Potassium 4.4 mmol/L (3.3-5.1); Sodium 138 mmol/L (135-145)
== END 2020-06-08 18:32 | disposition home or self-care (01) ==
PROVIDERS: Emergency Provider Emergency Medicine
DX: M10.071 Idiopathic gout, right ankle and foot (principal); F11.20 Opioid dependence, uncomplicated; K08.89 Other specified disorders of teeth and supporting structures; A59.9 Trichomoniasis, unspecified; D72.829 Elevated white blood cell count, unspecified; Z11.3 Encounter for screening for infections with a predominantly sexual mode of transmission; F41.9 Anxiety disorder, unspecified; F17.210 Nicotine dependence, cigarettes, uncomplicated
CPT/HCPCS: 36415; 71046; 80048; 81001; 81025; 85025; 87040; 96361; 96374; 96375; 99284; J0696; J1885

== ENCOUNTER 2020-07-02 11:27 | Emergency (ER) | payer MEDICAID, SELFPAY ==
[2020-07-02 11:30] VITALS: BP 112/72; PULSE 97; RESP 18; TEMP 36.7; O2SAT 97; BMI 25.7
--- NOTE | 2020-07-02 12:10 | ED_ITS ---
HPI - Skin/Abscess/Foreign Bdy General Chief complaint: Skin/Abscess/Foreign Body <BHARAT Wilcox - Last Filed: 07/02/20 14:37> Stated complaint: facial abscess <BHARAT Wilcox Last Filed: 07/02/20 14:37> Time Seen by Provider: 07/02/20 11:48 <BHARAT Wilcox Last Filed: 07/02/20 14:37> Source: patient <BHARAT Wilcox Last Filed: 07/02/20 14:37> Mode of arrival: ambulatory <BHARAT Wilcox Last Filed: 07/02/20 14:37> Limitations: no limitations <BHARAT Wilcox Last Filed: 07/02/20 14:37> History of Present Illness HPI narrative: 34 y/o female with substance abuse on methadone, history of STI's in the past who is presenting with facial abscess for the last 3 days that started after she used cocaine and was picking at her face. She has been using hot compresses to her face without improvement. She denies dental pain or trauma. No fevers. She also reports vaginal discharge and dysuria. She was seen in an ED in [place] a few days ago and was called today with the results positive for Gonorrhea and Chlamydia. She did not receive treatment there. She denies abdominal pain, N/V/D. No vaginal bleeding. <BHARAT Wilcox - Last Filed: 07/02/20 14:37> MD complaint: abscess/boil <BHARAT Wilcox Last Filed: 07/02/20 14:37> Onset (ago): day(s) (3) <BHARAT Wilcox Last Filed: 07/02/20 14:37> Tetanus up to date: unsure <BHARAT Wilcox Last Filed: 07/02/20 14:37> Location: face <BHARAT Wilcox Last Filed: 07/02/20 14:37> Severity: moderate <BHARAT Wilcox Last Filed: 07/02/20 14:37> Quality: burning and aching <BHARAT Wilcox Last Filed: 07/02/20 14:37> Pain Consistency: constant <BHARAT Wilcox - Last Filed: 07/02/20 14:37> Relieving factors: none <BHARAT Wilcox - Last Filed: 07/02/20 14:37> Exacerbating factors: palpation <BHARAT Wilcox - Last Filed: 07/02/20 14:37> Associated symptoms: denies other symptoms <BHARAT Wilcox - Last Filed: 07/02/20 14:37> Treatments prior to arrival: none <BHARAT Wilcox - Last Filed: 07/02/20 14:37> Related Data Home medications: Home Medications Medication Instructions Recorded Confirmed methadone 65 mg PO DAILY 01/13/20 01/13/20 Previous Rx's Medication Instructions Recorded clonidine HCl 0.1 mg PO BID PRN 15 Days #15 tab 01/18/20 doxycycline hyclate 100 mg PO Q12H 7 Days #14 tab 01/18/20 gabapentin 400 mg PO TID 15 Days #45 cap 01/18/20 metronidazole 500 mg PO Q8H 7 Days #21 tab 01/18/20 naloxone [Narcan] 4 mg INTRANASAL Q2M PRN #1 ea 01/18/20 nicotine 21 mg TRANSDERMAL DAILY 15 Days ea 01/18/20 fluconazole [Diflucan] 150 mg PO Q3D #2 tab 01/24/20 clonidine HCl 0.1 mg PO BID PRN #14 tab 01/28/20 doxycycline hyclate 100 mg PO BID #14 cap 01/28/20 gabapentin 400 mg PO TID #30 cap 01/28/20 metronidazole [Flagyl] 500 mg PO TID #21 tab 01/28/20 quetiapine [Seroquel] 100 mg PO DAILY #14 tab 01/28/20 quetiapine [Seroquel] 300 mg PO BEDTIME #14 tab 01/28/20 trazodone 50 mg PO BEDTIME PRN #14 tab 01/28/20 doxycycline hyclate 100 mg PO BID #20 cap 06/08/20 doxycycline hyclate 100 mg PO BID #20 cap 06/08/20 doxycycline hyclate 100 mg PO BID #20 cap 06/08/20 doxycycline hyclate 100 mg PO DAILY #14 tab 06/08/20 indomethacin 25 mg PO TID #12 cap 06/08/20 indomethacin 50 mg PO BID #7 cap 06/08/20 indomethacin 50 mg PO BID #8 cap 06/08/20 metronidazole [Flagyl] 2,000 mg PO ONCE #3 tab 06/08/20 metronidazole [Flagyl] 2,000 mg PO ONCE #3 tab 06/08/20 metronidazole [Flagyl] 2,000 mg PO ONCE #3 tab 06/08/20 amoxicillin-pot clavulanate 1 tab PO BID 7 Days #14 tab 07/02/20 [Augmentin] cephalexin 500 mg PO TID 7 Days #21 cap 07/02/20 doxycycline monohydrate 100 mg PO BID #14 cap 07/02/20 <BHARAT Wilcox - Last Filed: 07/02/20 14:37> Allergies/Adverse reactions: Allergies Allergy/AdvReac Type Severity Reaction Status Date / Time No Known Allergies Allergy Verified 07/02/20 11:28 [No Known Allergies*] <BHARAT Wilcox - Last Filed: 07/02/20 14:37> Review of Systems Review of Systems: Constitutional: No Fever, No Chills ENT/Mouth: No sore throat, No dental pain Eyes: No Eye Pain, No Swelling, No Redness Gastrointestinal: No Nausea, No Vomiting, No Diarrhea, No abdominal Pain Genitourinary: + Dysuria, No Urinary Frequency, No Hematuria, +vaginal discharge Musculoskeletal: No joint pain, No Myalgias Skin: +Skin Lesions, No rash Neuro: No Weakness, No Numbness, No Dizziness, No Headache Psych: + Anxiety/Panic, + Depression Heme/Lymph: No Bruising, No Lymphadenopathy <BHARAT Wilcox - Last Filed: 07/02/20 14:37> [facility] Past Medical History Attestation statement: The following information was validated with the patient. <BHARAT Wilcox - Last Filed: 07/02/20 14:37> Medical History: Medical History Acute anxiety Anxiety Depression Depression Drug-induced psychotic disorder History of drug dependence/abuse Opiate withdrawal PTSD (post-traumatic stress disorder) <BHARAT Wilcox - Last Filed: 07/02/20 14:37> Social History Social History: Social History Household Members: Other Housing: Apartment 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: current 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 frequency: a few times a week Smoking Status: Current every day smoker Tobacco Type: Cigarette Packs Per Day: 1.5 Cigarettes Per Day: 30.0 Years Smoked: 23 Second Hand Smoke Exposure: Yes Use of substances other than those prescribed or required for medical reasons: Yes Substance Use Type: Crack/Cocaine and Heroin Substance Use Frequency: Occasionally Last Used Substance: Days (ago) Any prior treatment program specific to substance use: Yes Advance Directives: No Advance Directives Information Provided: No <BHARAT Wilcox - Last Filed: 07/02/20 14:37> Physical Exam Vital Signs: Vital Signs: Last Vital Signs Temp 98.0 F 07/02/20 11:30 Pulse 97 07/02/20 11:30 Resp 18 07/02/20 11:30 BP 112/72 07/02/20 11:30 Pulse Ox 97 07/02/20 11:30 Body Mass Index 25.7 Appearance: Alert. Oriented X3. No acute distress. Eyes: Pupils equal, round and reactive to light. ENT: Pharynx normal. Poor dentition Neck: Normal inspection. Neck supple. CVS: Normal heart rate and rhythm. Pulses normal. Respiratory: No respiratory distress. Breath sounds normal. Abdomen: Soft and nontender. +BS x4 Skin: Skin warm and dry. Normal skin color. Over her right maxillary area there is a pustule with surrounding induration and tenderness, minimal erythema. Pelvic exam deferred Neuro: Oriented X 3. Non-focal. anxious <BHARAT Wilcox - Last Filed: 07/02/20 14:37> Vital Signs: Last Vital Signs Temp 98.0 F 07/02/20 11:30 Pulse 97 07/02/20 11:30 Resp 18 07/02/20 11:30 BP 112/72 07/02/20 11:30 Pulse Ox 97 07/02/20 11:30 Body Mass Index 25.7 <Easton Figueroa NP - Last Filed: 07/02/20 18:40> Vital Signs: Last Vital Signs Temp 98.0 F 07/02/20 11:30 Pulse 97 07/02/20 11:30 Resp 18 04/05/21 11:30 BP 112/72 07/02/20 11:30 Pulse Ox 97 07/02/20 11:30 Body Mass Index 25.7 <Devaughn Oviedo MD - Last Filed: 07/17/20 09:20> Course Course Course Narrative: 34 y/o female presenting with multiple complaints including small facial abscess and vaginal discharge in the setting of untreated STI's. Will treat with Azithromyin and Ceftriaxone now and give 1 week of Doxycycline. This will also treat the abscess on her face, likely MRSA given her history. She is refusing speaking with a Electric [employer] Control [employer]er. She is stable for discharge with treatment. <BHARAT Wilcox - Last Filed: 07/02/20 14:37> I have reviewed the chart <Devaughn Oviedo MD - Last Filed: 07/17/20 09:20> Procedures Abscess I/D Site: face <BHARAT Wilcox - Last Filed: 07/02/20 14:37> Side (if applicable): right <BHARAT Wilcox - Last Filed: 07/02/20 14:37> Technique: needle aspiration <BHARAT Wilcox - Last Filed: 07/02/20 14:37> Sent for culture/gram staining?: No <BHARAT Wilcox - Last Filed: 07/02/20 14:37> Irrigation: Yes <BHARAT Wilcox - Last Filed: 07/02/20 14:37> Packing used?: none <BHARAT Wilcox - Last Filed: 07/02/20 14:37> Complications: pain <BHARAT Wilcox - Last Filed: 07/02/20 14:37> MDM - Skin/Abscess/Foreign Bdy Lab Data Labs: Lab Results 07/02/20 07/02/20 07/02/20 Range/Units 12:21 12:21 12:21 Urine Color YELLOW Urine Appearance HAZY Urine pH 6.5 (5.0-8.0) Ur Specific [place] 1.025 (1.005-1.025) Urine Protein NEG (NEG-TRACE) MG/DL Urine Glucose (UA) NEG (NEG) MG/DL Urine Ketones NEG (NEG) MG/DL Urine Blood 2+ H (NEG) Urine Nitrite NEG (NEG) Ur Leukocyte Esterase NEG (NEG) Urine RBC 10-14 H (0) /HPF Urine WBC 0 (0-4) /HPF Ur Squamous Epith Cells 2+ /LPF Ur Renal Epithelial Cell 1+ /LPF Urine Bacteria NONE /LPF Urine Test WEAKLY POSITIVE H (NEGATIVE) Chlam trachomat DNA PCR NOT DETECTED (Not Detect.) N.gonorrhoeae DNA (PCR) NOT DETECTED (Not Detect.) <BHARAT Wilcox - Last Filed: 07/02/20 14:37> Lab Results 07/02/20 07/02/20 07/02/20 Range/Units 12: 12: 12: Urine Color YELLOW Urine Appearance HAZY Urine pH 6.5 (5.0-8.0) Ur Specific [place] 1.025 (1.005-1.025) Urine Protein NEG (NEG-TRACE) MG/DL Urine Glucose (UA) NEG (NEG) MG/DL Urine Ketones NEG (NEG) MG/DL Urine Blood 2+ H (NEG) Urine Nitrite NEG (NEG) Ur Leukocyte Esterase NEG (NEG) Urine RBC 10-14 H (0) /HPF Urine WBC 0 (0-4) /HPF Ur Squamous Epith Cells 2+ /LPF Ur Renal Epithelial Cell 1+ /LPF Urine Bacteria NONE /LPF Urine Test WEAKLY POSITIVE H (NEGATIVE) Chlam trachomat DNA PCR NOT DETECTED (Not Detect.) N.gonorrhoeae DNA (PCR) NOT DETECTED (Not Detect.) <Easton Figueroa FORKLIFT TECHNICIAN - Last Filed: 07/02/20 18:40> Lab Results 07/02/20 07/02/20 07/02/20 Range/Units 12: 12: 12:21 Urine Color YELLOW Urine Appearance HAZY Urine pH 6.5 (5.0-8.0) Ur Specific [place] 1.025 (1.005-1.025) Urine Protein NEG (NEG-TRACE) MG/DL Urine Glucose (UA) NEG (NEG) MG/DL Urine Ketones NEG (NEG) MG/DL Urine Blood 2+ H (NEG) Urine Nitrite NEG (NEG) Ur Leukocyte Esterase NEG (NEG) Urine RBC 10-14 H (0) /HPF Urine WBC 0 (0-4) /HPF Ur Squamous Epith Cells 2+ /LPF Ur Renal Epithelial Cell 1+ /LPF Urine Bacteria NONE /LPF Urine Test WEAKLY POSITIVE H (NEGATIVE) Chlam trachomat DNA PCR NOT DETECTED (Not Detect.) N.gonorrhoeae DNA (PCR) NOT DETECTED (Not Detect.) <Devaughn Oviedo MD - Last Filed: 07/17/20 09:20> Discharge Plan Discharge Clinical Impression: STI (sexually transmitted infection), Abscess <BHARAT Wilcox - Last Filed: 07/02/20 14:37> Patient Disposition: Home, Self-Care <BHARAT Wilcox - Last Filed: 07/02/20 14:37> Instructions: Chlamydia (ED), Gonorrhea (ED), Abscess (ED) <BHARAT Wilcox - Last Filed: 07/02/20 14:37> Additional Instructions: Take the prescribed antibiotics as prescribed until they are completely gone. Do not have any sexual contact for at least 7-10 days. Use warm compresses your face several times per day to help bring the infection to the surface and increase blood flow to the area. If you have worsening pain or swelling, develop fever or inability to open your mouth fully, come back to the ER for evaluation. Follow up with your doctor in 1 week. <BHARAT Wilcox - Last Filed: 07/02/20 14:37> Prescriptions: New doxycycline monohydrate 100 mg capsule 100 mg PO BID Qty: 14 RF: 0 cephalexin 500 mg capsule 500 mg PO TID 7 Days Qty: 21 RF: 0 amoxicillin-pot clavulanate [Augmentin] 875-125 mg tablet 1 tab PO BID 7 Days Qty: 14 RF: 0 No Action fluconazole [Diflucan] 150 mg tablet 150 mg PO Q3D Qty: 2 RF: 0 methadone 65 mg PO DAILY RF: 0 clonidine HCl 0.1 mg Tablet 0.1 mg PO BID PRN (Reason: OPIATE WITHDRAWL) 15 Days Qty: 15 RF: 1 metronidazole 500 mg Tablet 500 mg PO Q8H 7 Days Qty: 21 RF: 0 nicotine 21 mg/24 hr Patch 24 Hour 21 mg transdermal DAILY 15 Days RF: 0 doxycycline hyclate 100 mg Tablet 100 mg PO Q12H 7 Days Qty: 14 RF: 0 gabapentin 400 mg capsule 400 mg PO TID 15 Days Qty: 45 RF: 1 Narcan 4 mg/actuation spray,non-aerosol 4 mg intranasal Q2M PRN (Reason: opioid overdose) Qty: 1 RF: 1 quetiapine [Seroquel] 300 mg tablet 300 mg PO BEDTIME Qty: 14 RF: 0 quetiapine [Seroquel] 100 mg tablet 100 mg PO DAILY Qty: 14 RF: 0 trazodone 50 mg tablet 50 mg PO BEDTIME PRN (Reason: insomnia) Qty: 14 RF: 0 gabapentin 400 mg capsule 400 mg PO TID Qty: 30 RF: 0 doxycycline hyclate 100 mg capsule 100 mg PO BID Qty: 14 RF: 0 metronidazole [Flagyl] 500 mg tablet 500 mg PO TID Qty: 21 RF: 0 clonidine HCl 0.1 mg tablet 0.1 mg PO BID PRN (Reason: opiate withdrawal) Qty: 14 RF: 0 doxycycline hyclate 100 mg tablet 100 mg PO DAILY Qty: 14 RF: 0 metronidazole [Flagyl] 500 mg tablet 2,000 mg PO ONCE Qty: 3 RF: 0 indomethacin 25 mg capsule 25 mg PO TID Qty: 12 RF: 0 indomethacin 50 mg capsule 50 mg PO BID Qty: 7 RF: 0 metronidazole [Flagyl] 500 mg tablet 2,000 mg PO ONCE Qty: 3 RF: 0 doxycycline hyclate 100 mg capsule 100 mg PO BID Qty: 20 RF: 0 doxycycline hyclate 100 mg capsule 100 mg PO BID Qty: 20 RF: 0 metronidazole [Flagyl] 500 mg tablet 2,000 mg PO ONCE Qty: 3 RF: 0 doxycycline hyclate 100 mg capsule 100 mg PO BID Qty: 20 RF: 0 indomethacin 50 mg capsule 50 mg PO BID Qty: 8 RF: 0 <BHARAT Wilcox - Last Filed: 07/02/20 14:37> Interventions: ED Discharge Assessment Last Done: 07/02/20 12:49 <BHARAT Wilcox - Last Filed: 07/02/20 14:37> Discharge Date/Time: 07/02/20 12:50 <BHARAT Wilcox - Last Filed: 07/02/20 14:37>
[2020-07-02] MEDS: Azithromycin 500 MG TABLET 1000 MG PO (12:13)
[2020-07-02] MEDS: cefTRIAXone sodium 500 MG VIAL IM (12:14)
[2020-07-02 12:37] LABS: Glucose Urine UA NEG (NEG); Leukocyte Esterase Urine NEG (NEG); Nitrite Urine NEG (NEG); PH 6.5 (5.0-8.0); Specific Gravity - Urine 1.025 (1.005-1.025); Urine Blood 2+ (NEG); Urine Ketones NEG (NEG); Urine Protein NEG (NEG-TRACE)
[2020-07-02 12:42] LABS: Appearance Urine HAZY; Color Urine YELLOW
[2020-07-02 13:10] LABS: Renal Epithelial Cells Urine 1+ /LPF; Squamous Epithelial Cell Urine 2+ /LPF; WBC Urine 0 /HPF (0-4)
[2020-07-02 13:32] LABS: UPreg QC Valid YES; Urine Pregnancy WEAKLY POSITIVE (NEGATIVE)
[2020-07-02 17:42] LABS: CT PCR NOT DETECTED (Not Detect.); NG PCR NOT DETECTED (Not Detect.)
== END 2020-07-02 12:50 | disposition home or self-care (01) ==
PROVIDERS: Physician Assistant; Emergency Provider Emergency Medicine
DX: L02.01 Cutaneous abscess of face (principal); A64 Unspecified sexually transmitted disease; F11.10 Opioid abuse, uncomplicated; F14.10 Cocaine abuse, uncomplicated; F17.210 Nicotine dependence, cigarettes, uncomplicated; Z71.6 Tobacco abuse counseling; N89.8 Other specified noninflammatory disorders of vagina; Z71.51 Drug abuse counseling and surveillance of drug abuser
CPT/HCPCS: 10060; 81001; 81025; 87491; 87591; 96372; 99284; J0696

== ENCOUNTER 2020-07-26 17:39 | Emergency (ER) | payer MEDICAID, SELFPAY ==
--- NOTE | ~2020-07-26 | XR_ITS ---
EXAMINATION: SOFT TISSUE NECK AND CHEST RADIOGRAPH CLINICAL INFORMATION: Question of a foreign body-needle COMPARISON: Chest radiograph June 08, 2020 TECHNIQUE: Single view chest and 2 views FINDINGS: There is a scoliosis convex to the left. Chest radiograph is otherwise unremarkable. No radiopaque foreign bodies are seen soft tissue exam of the neck shows no evidence of a radiopaque foreign body either in the nasopharynx or oropharynx or neck. XR/XR chest 1V IMPRESSION: No evidence of a foreign body seen.
--- NOTE | ~2020-07-26 | XR_ITS ---
EXAMINATION: SOFT TISSUE NECK AND CHEST RADIOGRAPH CLINICAL INFORMATION: Question of a foreign body-needle COMPARISON: Chest radiograph June 08, 2020 TECHNIQUE: Single view chest and 2 views FINDINGS: There is a scoliosis convex to the left. Chest radiograph is otherwise unremarkable. No radiopaque foreign bodies are seen soft tissue exam of the neck shows no evidence of a radiopaque foreign body either in the nasopharynx or oropharynx or neck. XR/XR soft tissue neck IMPRESSION: No evidence of a foreign body seen.
--- NOTE | 2020-07-26 17:47 | ED.GENADULT ---
HPI - General Adult General Chief complaint: Wound/Laceration Stated complaint: NEEDLE IN NECK ATTEMPT, SELF EXTRACTION, Time Seen by Provider: 07/26/20 17:45 Source: patient Mode of arrival: ambulatory Limitations: no limitations History of Present Illness HPI narrative: Patient was using IV drugs heroin in the right neck ?broke the needle not sure about it and then she made a lac with razor about an inch to remove the needle prior to arrival patient came in the ER very anxious patient not sure about whether she broken needle not Related Data Home Medications Medication Instructions Recorded Confirmed methadone 65 mg PO DAILY 01/13/20 01/13/20 Previous Rx's Medication Instructions Recorded clonidine HCl 0.1 mg PO BID PRN 15 Days #15 tab 01/18/20 doxycycline hyclate 100 mg PO Q12H 7 Days #14 tab 01/18/20 gabapentin 400 mg PO TID 15 Days #45 cap 01/18/20 metronidazole 500 mg PO Q8H 7 Days #21 tab 01/18/20 naloxone [Narcan] 4 mg INTRANASAL Q2M PRN #1 ea 01/18/20 nicotine 21 mg TRANSDERMAL DAILY 15 Days ea 01/18/20 fluconazole [Diflucan] 150 mg PO Q3D #2 tab 01/24/20 clonidine HCl 0.1 mg PO BID PRN #14 tab 01/28/20 doxycycline hyclate 100 mg PO BID #14 cap 01/28/20 gabapentin 400 mg PO TID #30 cap 01/28/20 metronidazole [Flagyl] 500 mg PO TID #21 tab 01/28/20 quetiapine [Seroquel] 100 mg PO DAILY #14 tab 01/28/20 quetiapine [Seroquel] 300 mg PO BEDTIME #14 tab 01/28/20 trazodone 50 mg PO BEDTIME PRN #14 tab 01/28/20 doxycycline hyclate 100 mg PO BID #20 cap 06/08/20 doxycycline hyclate 100 mg PO BID #20 cap 06/08/20 doxycycline hyclate 100 mg PO BID #20 cap 06/08/20 doxycycline hyclate 100 mg PO DAILY #14 tab 06/08/20 indomethacin 25 mg PO TID #12 cap 06/08/20 indomethacin 50 mg PO BID #7 cap 06/08/20 indomethacin 50 mg PO BID #8 cap 06/08/20 metronidazole [Flagyl] 2,000 mg PO ONCE #3 tab 06/08/20 metronidazole [Flagyl] 2,000 mg PO ONCE #3 tab 06/08/20 metronidazole [Flagyl] 2,000 mg PO ONCE #3 tab 06/08/20 amoxicillin-pot clavulanate 1 tab PO BID 7 Days #14 tab 07/02/20 [Augmentin] cephalexin 500 mg PO TID 7 Days #21 cap 07/02/20 doxycycline monohydrate 100 mg PO BID #14 cap 07/02/20 Allergies Allergy/AdvReac Type Severity Reaction Status Date / Time No Known Allergies Allergy Verified 07/02/20 11:28 [No Known Allergies*] Review of Systems Review of Systems: Yes all other systems are reviewed and are negative PMFSH Past Medical History Medical History Acute anxiety Anxiety Depression Depression Drug-induced psychotic disorder History of drug dependence/abuse Opiate withdrawal PTSD (post-traumatic stress disorder) Social History Social History Household Members: Other Housing: Apartment 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: current 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 frequency: a few times a week Smoking Status: Current every day smoker Tobacco Type: Cigarette Packs Per Day: 1.5 Cigarettes Per Day: 30.0 Years Smoked: 23 Second Hand Smoke Exposure: Yes Substance Use Type: Crack/Cocaine and Heroin Advance Directives: No Advance Directives Information Provided: Yes Physical Exam Vital Signs: Vital Signs: Last Vital Signs Temp 99.3 F 07/26/20 17:58 Pulse 88 07/26/20 17:58 Resp 16 07/26/20 17:58 BP 117/73 07/26/20 17:58 Pulse Ox 98 07/26/20 17:58 Body Mass Index 25.7 Const: General: comfortable and anxious Orientation/consciousness: patient oriented x3 HENMT: Head: Yes normocephalic and Yes atraumatic Eyes: General: appearance normal, both eyes and all related structures Neck: Carotids: normal carotid upstroke Neck images: 1. 3.5 cm superficial laceration no foreign body palpable Resp: Effort & Inspection: normal respiratory effort Auscultation: clear to auscultation bilaterally Cardio: Palpation: normal PMI Rate: regular rate Rhythm: regular rhythm Heart sounds: S1 normal heart sound present and S2 normal heart sound present GI: Inspection: Yes normal to inspection Neuro: General: patient oriented x3 Procedures Laceration Laceration 1: Site: neck Side (If applicable): right Size (cm): 3.5 Description: linear Depth: simple, single layer Local Anesthetic: lidocaine 2% Amount of anesthesia used (mL): 5 Skin layer closed with: vicryl Size (cm): 5-0 Number of sutures: 5 Technique: simple, interrupted Medical Decision Making MDM Narrative Medical decision making narrative: Patient with superficial laceration right neck no foreign body seen in the x-ray of the neck and the chest. Case discussed with vascular surgeon Dr. Perez no need for further investigation likely patient does not have any broken needle. Will discharge patient home on antibiotics Discharge Plan Discharge Prescriptions: No Action fluconazole [Diflucan] 150 mg tablet 150 mg PO Q3D Qty: 2 RF: 0 doxycycline monohydrate 100 mg capsule 100 mg PO BID Qty: 14 RF: 0 cephalexin 500 mg capsule 500 mg PO TID 7 Days Qty: 21 RF: 0 amoxicillin-pot clavulanate [Augmentin] 875-125 mg tablet 1 tab PO BID 7 Days Qty: 14 RF: 0 methadone 65 mg PO DAILY RF: 0 clonidine HCl 0.1 mg Tablet 0.1 mg PO BID PRN (Reason: OPIATE WITHDRAWL) 15 Days Qty: 15 RF: 1 metronidazole 500 mg Tablet 500 mg PO Q8H 7 Days Qty: 21 RF: 0 nicotine 21 mg/24 hr Patch 24 Hour 21 mg transdermal DAILY 15 Days RF: 0 doxycycline hyclate 100 mg Tablet 100 mg PO Q12H 7 Days Qty: 14 RF: 0 gabapentin 400 mg capsule 400 mg PO TID 15 Days Qty: 45 RF: 1 Narcan 4 mg/actuation spray,non-aerosol 4 mg intranasal Q2M PRN (Reason: opioid overdose) Qty: 1 RF: 1 quetiapine [Seroquel] 300 mg tablet 300 mg PO BEDTIME Qty: 14 RF: 0 quetiapine [Seroquel] 100 mg tablet 100 mg PO DAILY Qty: 14 RF: 0 trazodone 50 mg tablet 50 mg PO BEDTIME PRN (Reason: insomnia) Qty: 14 RF: 0 gabapentin 400 mg capsule 400 mg PO TID Qty: 30 RF: 0 doxycycline hyclate 100 mg capsule 100 mg PO BID Qty: 14 RF: 0 metronidazole [Flagyl] 500 mg tablet 500 mg PO TID Qty: 21 RF: 0 clonidine HCl 0.1 mg tablet 0.1 mg PO BID PRN (Reason: opiate withdrawal) Qty: 14 RF: 0 doxycycline hyclate 100 mg tablet 100 mg PO DAILY Qty: 14 RF: 0 metronidazole [Flagyl] 500 mg tablet 2,000 mg PO ONCE Qty: 3 RF: 0 indomethacin 25 mg capsule 25 mg PO TID Qty: 12 RF: 0 indomethacin 50 mg capsule 50 mg PO BID Qty: 7 RF: 0 metronidazole [Flagyl] 500 mg tablet 2,000 mg PO ONCE Qty: 3 RF: 0 doxycycline hyclate 100 mg capsule 100 mg PO BID Qty: 20 RF: 0 doxycycline hyclate 100 mg capsule 100 mg PO BID Qty: 20 RF: 0 metronidazole [Flagyl] 500 mg tablet 2,000 mg PO ONCE Qty: 3 RF: 0 doxycycline hyclate 100 mg capsule 100 mg PO BID Qty: 20 RF: 0 indomethacin 50 mg capsule 50 mg PO BID Qty: 8 RF: 0
[2020-07-26 17:58] VITALS: BP 117/73; PULSE 88; RESP 16; TEMP 37.4; O2SAT 98; BMI 25.7
[2020-07-26] MEDS: LORazepam 1 MG TABLET 2 MG PO (18:23)
--- NOTE | 2020-07-26 19:07 | PC.NURSE ---
IN ROOM FOR SUTURING NECK AREA.
[2020-07-26] MEDS: Diphth,Pertus(ACell),Tet Adult 0.5 ML SYRINGE IM (19:16)
[2020-07-26] MEDS: cephALEXin 500 MG CAPSULE PO (19:17)
[2020-07-26] MEDS: Lidocaine HCl 2 % MPF 5 ML VIAL INFILTRATI (19:18)
--- NOTE | 2020-07-26 19:31 | MHC.RECOVSUP ---
? Reason for consult Support o Current location: ED5 o Identified substance use concern: Heroin & Cocaine - Seeking ATS (detox) - Support ? Intervention: o ATS bed search started 7PM /completed 7:15pm o Community resources provided o Harm reduction discussion ? Plan: o Patient to follow up with [facility] after discharge ? Additional information: Patient Has a bed pending at [facility] at 7AM.. Patient C/O will be taking patient in the morning.. Patient was given [facility] Information so patient can follow up and continue to work on there recovery.
== END 2020-07-26 19:36 | disposition home or self-care (01) ==
PROVIDERS: Emergency Provider Internal Medicine
DX: S11.91XA Laceration without foreign body of unspecified part of neck, initial encounter (principal); M54.2 Cervicalgia; F11.10 Opioid abuse, uncomplicated; W26.8XXA Contact with other sharp object(s), not elsewhere classified, initial encounter; W45.8XXA Other foreign body or object entering through skin, initial encounter; Y93.9 Activity, unspecified; Y92.9 Unspecified place or not applicable; Y99.9 Unspecified external cause status; Z71.51 Drug abuse counseling and surveillance of drug abuser; F17.210 Nicotine dependence, cigarettes, uncomplicated; Z71.6 Tobacco abuse counseling; Z79.899 Other long term (current) drug therapy
CPT/HCPCS: 12002; 70360; 71045; 90471; 90715; 99283; 99284

== ENCOUNTER 2020-10-04 17:49 | Inpatient (IN) | payer MEDICAID, SELFPAY ==
--- NOTE | ~2020-10-04 | XR_ITS ---
EXAMINATION: XR CHEST CLINICAL INFORMATION: Bacteremia COMPARISON: Previous chest x-ray most recent June 2020 TECHNIQUE: Frontal view of the chest was obtained. FINDINGS: No significant abnormality is noted involving the heart, lungs, mediastinum, bony thorax or soft tissues. XR/XR chest 1V IMPRESSION: Unremarkable examination.
--- NOTE | ~2020-10-04 | CT_ITS ---
EXAMINATION: CT ABDOMEN AND PELVIS WITH CONTRAST CLINICAL INFORMATION: Positive blood culture. Recent . COMPARISON: Chest radiograph 07/26/2020 TECHNIQUE: Multidetector volumetric images were obtained from the superior aspect of the liver through the pubic symphysis following administration 85 mL of Omnipaque 350 intravenous contrast. Sagittal and coronal reformatted images were obtained on the technologist's workstation. Oral contrast: No This CT examination was performed using dose optimization techniques as appropriate, variously including the following: *Automated exposure control *Adjustment of mA and/or kV according to patient size (this includes techniques or standardized protocols for targeted exams where dose is matched to indication/reason for exam; i.e. extremities or head) *Use of iterative reconstruction technique DLP: 573 mGy-cm FINDINGS: LUNG BASES: Subsegmental atelectasis left posterior base. No airspace consolidation or effusion. LIVER, GALLBLADDER, AND BILIARY TREE: The liver is normal in size, shape, and attenuation. No focal hepatic lesion or biliary ductal dilatation is present. The gallbladder is unremarkable with no evidence of radiopaque gallstones, gallbladder wall thickening, or obvious pericholecystic inflammatory changes. PANCREAS: Unremarkable. SPLEEN: Unremarkable. ADRENAL GLANDS: Unremarkable. KIDNEYS AND URETERS: The kidneys are normal in size, shape, and attenuation. The kidneys enhance symmetrically. Normal nephrograms. No hydronephrosis, hydroureter, or calculi seen. No perinephric stranding. Incidental subcentimeter hypodense lesion anterior lower pole right kidney, likely a tiny cyst. No additional imaging required. BLADDER: Unremarkable. GASTROINTESTINAL TRACT: There is stool throughout the entire colon from the cecum to the rectum. There is no bowel dilatation or bowel wall thickening or inflammatory changes seen in the adjacent mesentery. There is no ascites or fluid collection. No pneumatosis or free air. The appendix is not visualized with certainty. There are no inflammatory changes seen around the cecum or terminal ileum. ABDOMINAL WALL: No significant hernia is appreciated. LYMPH NODES: No lymphadenopathy. VASCULAR: Unremarkable. PELVIC VISCERA: Retroverted uterus is tilted towards left. No dilatation uterine cavity or pneumatosis. No overt adnexal mass. OSSEOUS STRUCTURES: Unremarkable. CT/CT abdomen pelvis w con IMPRESSION: 1. Stool throughout entire colon cecum to rectum. No proximal obstruction or focal inflammatory changes. 2. No ascites or fluid collection. No pneumatosis in bowel or uterus. 3. Kidneys enhance symmetrically. No hydronephrosis or perinephric stranding.
[2020-10-04 17:54] VITALS: BP 154/70; PULSE 111; RESP 16; TEMP 37.1; O2SAT 100; BMI 22.3
--- NOTE | 2020-10-04 18:38 | PC.NURSE ---
During change control manager- ert noticed heroin needle in bra, Security to bedside to remove. Pt states she has multiple complaints regarding her visit today. Pt reports needing detox services, assistance with depression, ?internal bleeding, ?loosing a needle in her breast while shooting up and that this has happened before , Black spots on skin, and open areas on skin from IV drug usage. pt is hyperverbal in nature, reports severe 10/10 abd pain, with tenderness on palpation, with rigidity and tenderness. Pt reports having a surgical approximately 1 week prior. Pt denies si/hi/ A/v hallucinations. Pt reports extensive drug history, admits to prior use of cocaine, heroine, methamphetamines just prior to admission. Pt states that she has delusions of persecution regarding being in [facility] and that hospital staff is holding her hostage. IV established, 20g LAC, Labs protocol-ed.
[2020-10-04 18:40] VITALS: BP 126/83; PULSE 117; RESP 19; TEMP 36.9; O2SAT 100
--- NOTE | 2020-10-04 18:41 | PC.NURSE ---
RN AWARE OF PATIENT HIGH HEART RATE .
[2020-10-04 18:42] LABS: MANUAL DIFF FLAG NO
[2020-10-04 18:44] LABS: Basophils Percent Auto 0.2 % (0-2); Eosinophils Percent Auto 0.2 % (0-4); Hematocrit 32.1 % (37-47); Imm Gran Abs Auto 0.02 X10*3/uL (0.00-0.03); Imm Gran Pct Auto 0.2 % (0.0-0.4); Lymphocytes Absolute Auto 1.9 X10*3/uL (1.2-4.9); Mean Corpuscular HGB Conc 31.2 g/dl (31.0-35.0); Mean Corpuscular Volume 86.5 fL (80-98); Mean Platelet Volume 9.5 fL (9.4-12.3); Monocytes Absolute Auto 0.8 X10*3/uL (0.1-1.2); Neutrophils Absolute Auto 6.8 X10*3/uL (2.0-8.3); Neutrophils Percent Auto 71.4 % (45-73); Platelet Count 277 X10*3/uL (160-400); Red Blood Count 3.71 X10*6/uL (4.20-5.50); Red Cell Distribution Width 16.7 % (11.0-16.0); White Blood Count 9.6 X10*3/uL (4.8-10.8)
[2020-10-04 18:56] LABS: COVID-19 Test Negative (Negative)
[2020-10-04 19:05] LABS: Lactic Acid 1.2 mmol/L (0.5-2.0)
[2020-10-04 19:06] LABS: Ethanol < 10 mg/dL
--- NOTE | 2020-10-04 19:08 | ED.GENADULT ---
HPI - General Adult General Chief complaint: Abdominal Pain Stated complaint: ABD PAIN Time Seen by Provider: 10/04/20 18:56 Source: patient Mode of arrival: ambulatory Limitations: no limitations History of Present Illness HPI narrative: 35-year-old female who presents emergency department for evaluation spasms, insomnia, unable to stay still. Patient has a history of polysubstance use disorder. She states that she did 2 hits of crack cocaine yesterday she states that multiple times throughout the day today she injected cocaine. She states that after injecting the cocaine she started to feel spasms throughout her entire body, she states that she was twitching and was unable to stay still. She also states that she has not been able to sleep for 3 days. Related Data Home Medications Medication Instructions Recorded Confirmed clonidine HCl 1 tab PO TID 10/04/20 10/04/20 desogestrel-ethinyl estradiol 1 tab PO DAILY 10/04/20 10/04/20 [Apri] famotidine 1 tab PO DAILY 10/04/20 10/04/20 gabapentin 1 cap PO TID 10/04/20 10/04/20 ibuprofen 1 tab PO Q8H 10/04/20 10/04/20 metronidazole 1 tab PO Q12H 10/04/20 10/04/20 quetiapine 1 tab PO BEDTIME 10/04/20 10/04/20 quetiapine 1 tab PO DAILY 10/04/20 10/04/20 Allergies Allergy/AdvReac Type Severity Reaction Status Date / Time No Known Allergies Allergy Verified 07/02/20 11:28 [No Known Allergies*] Review of Systems Review of Systems: Yes all other systems are reviewed and are negative [facility] Past Medical History [facility] Narrative: Social History: The patient does smoke cigarettes daily, she denies alcohol use, she uses crack cocaine and injects cocaine daily. Medical History Acute anxiety Anxiety Depression Depression Drug-induced psychotic disorder History of drug dependence/abuse Opiate withdrawal PTSD (post-traumatic stress disorder) Social History Social History Household Members: Other Household Members Other:: grandmother Housing: Apartment Do you presently have visiting nurse or other home services: No 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: current 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 frequency: 0-2 drinks per day Alcohol type: beer, wine and hard liquor Patient Tobacco Use Status: Current everyday Tobacco user Cigarette Packs Per Day: 1.5 Cigarettes Per Day: 30.0 Years Smoked: 23 Smoked in Last 30 Days: Yes Second Hand Smoke Exposure: Yes Use of substances other than those prescribed or required for medical reasons: Yes Substance Use Type: Amphetamines, Crack/Cocaine, Hallucinogens, Heroin, IV Drugs, Marijuana, Methamphetamine, Opiates, Painkillers, Prescription Drugs and Sedatives Substance Use Frequency: Chronic Longstanding Last Used Substance: Just Prior to Admission Any prior treatment program specific to substance use: Yes (Reports previous section 35) Advance Directives: No Advance Directives Information Provided: No Patient : No Physical Exam Vital Signs: Vital Signs: Last Vital Signs Temp 97.8 F 10/04/20 23:49 Pulse 63 10/04/20 23:49 Resp 16 10/04/20 23:49 BP 122/86 10/04/20 23:49 Pulse Ox 99 10/04/20 23:49 Body Mass Index 22.3 Const: Other: Awake, alert, female, patient appears to be very agitated, she is hyperactive, she is having difficulty cooperating and sitting on the stretcher , she has very pressured speech HENMT: Head: Yes normal to inspection, Yes normocephalic and Yes atraumatic Ears: external ears normal General nose exam: Normal external nose present Face and sinus: Yes normal facial exam Mouth: Normal oral and palatal mucosa present Throat: Yes posterior oropharynx normal Eyes: Periorbital: periorbital findings normal Eyelids: Yes eyelids normal Conjunctivae: conjunctivae normal Sclerae: sclerae normal Corneas: corneas normal Pupils: Equal, round and reactive pupils present Direct Ophthalmoscopy: normal light reflex Neck: Neck: Yes full ROM, Yes no lymphadenopathy, Yes no meningeal signs, Yes trachea midline and Yes supple Chest: Chest palpation & inspection: normal inspection of the chest and normal palpation of entire chest wall Resp: Effort & Inspection: normal respiratory effort and able to speak in complete sentences Auscultation: clear to auscultation bilaterally Cardio: Rate: regular rate Rhythm: regular rhythm Heart sounds: S1 normal heart sound present, S2 normal heart sound present and no murmurs GI: Inspection: Yes normal to inspection Palpation (GI): Soft to palpation, nontender, no guarding, not rigid and No hepatosplenomegaly present : General: Yes no CVA tenderness Back/Spine/Pelvis: Back: no CVA tenderness Cervical Spine: normal cervical lordosis Thoracic/Lumbar Spine: thoracic and lumbar spine normal to inspection Skin: Other: the patient has multiple track nieves in both arms, she has multiple excoriated lesions on her arms and legs as well Neuro: General: no meningeal signs Cranial nerves: Yes CN's II-XII intact bilaterally and Yes Equal, round and reactive pupils present Cognition (Neuro): normal cognition Motor exam (neuro): 5/5 motor strength present throughout Extrem: General: Yes full ROM Psych: Other: the patient is very agitated, she has pressured speech, she is having difficulty cooperating secondary to her agitation, she is making suicidal statements but then retract them. Course Course Course Narrative: 35-year-old female who presents emergency department for evaluation of muscle spasms, agitation and insomnia after smoking crack cocaine and injecting cocaine. The patient's examination revealed that she was very agitated, she had difficulty cooperating and she was making suicidal statements and then retracting them. the patient's symptoms are most likely secondary to cocaine use, it is also possible she may be having a dystonic reaction to the drugs that she has been using. The patient was ordered to get Ativan 1 mg IV, Benadryl 50 mg IV and Haldol 5 mg IV and pain. the patient's laboratory evaluation revealed a chronic anemia with an H&H of 10 and 32, patient's alcohol level was below detectable limits. Urinalysis and urine tox screen has not been obtained yet. 2332: The patient had a good response to the above medications and is resting comfortably. The patient will be placed in physician observation in until she can be re-evaluated and to see if she is still feeling suicidal after agitation has improved. 2332: Physician observation started at 2332 hours.Patient placed in physician observation because the patient needed more time for medication to work and to be re-evaluated want her agitation improves to see if she is suicidal. At the time observation was started the patient's vitals were stable, patient is sleeping, Neuro: nonfocal, CV RRR, Lungs clear. 0044 : Physician observation continued: The patient woke up and again is very agitated, she is restless is unable to sit on the stretcher, I believe this is secondary to her using cocaine. The patient was not able to tell me if she was suicidal. The patient will be medicated again with Haldol 5 mg IV and Ativan 1 mg IV for her agitation she will be kept in the emergency department until she can be evaluated by our crisis team. Medical Decision Making Lab Data Result diagrams: 10/04/20 18:34 10/04/20 18:30 Labs: Lab Results 10/04/20 10/04/20 10/04/20 Range/Units 18:30 18:30 18:30 WBC (4.8-10.8) X10*3/uL RBC (4.20-5.50) X10*6/uL Hgb (12.0-16.0) g/dl Hct (37-47) % MCV (80-98) fL MCH (27.0-33.0) pg MCHC (31.0-35.0) g/dl RDW (11.0-16.0) % Plt Count (160-400) X10*3/uL MPV (9.4-12.3) fL Immature Gran % (Auto) (0.0-0.4) % Neut % (Auto) (45-73) % Lymph % (Auto) (20-40) % [place] % (Auto) (2-11) % Eos % (Auto) (0-4) % Baso % (Auto) (0-2) % Lymph # (Auto) (1.2-4.9) X10*3/uL [place] # (Auto) (0.1-1.2) X10*3/uL Eos # (Auto) (0.0-0.4) X10*3/uL Baso # (Auto) (0.0-0.2) X10*3/uL Abs Immat Gran (auto) (0.00-0.03) X10*3/uL Absolute Neuts (auto) (2.0-8.3) X10*3/uL Absolute Nucleated RBC (0.0-0.012) X10*3/uL Nucleated RBC % (auto) (0.0-0.2) /100WBC Sodium 141 (135-145) mmol/L Potassium 3.6 (3.3-5.1) mmol/L Chloride 104 (96-108) mmol/L Carbon Dioxide 23 (22-29) mmol/L Anion Gap 18 (12-20) BUN 17 H D (9-16) mg/dL Creatinine 1.03 (0.5-1.4) mg/dL Estim Creat Clear Calc 66.4 Estimated GFR > 60 Random Glucose 99 (60-115) mg/dL Lactic Acid 1.2 (0.5-2.0) mmol/L Calcium 10.0 D (8.4-10.2) mg/dL Total Bilirubin 0.3 (0.0-1.0) mg/dL AST 23 (5-31) U/L ALT 11 (0-31) U/L Alkaline Phosphatase 61 D (39-117) U/L Total Protein 8.1 H D (6.5-8.0) g/dL Albumin 4.6 D (3.5-5.0) g/dL Lipase < 4 L (8-78) U/L Ethyl Alcohol mg/dL COVID-19 (AUTUMN) (Negative) COVID-19 Clin Com 10/04/20 10/04/20 10/04/20 Range/Units 18:34 18:34 18:34 WBC 9.6 (4.8-10.8) X10*3/uL RBC 3.71 L (4.20-5.50) X10*6/uL Hgb 10.0 L (12.0-16.0) g/dl Hct 32.1 L (37-47) % MCV 86.5 (80-98) fL MCH 27.0 (27.0-33.0) pg MCHC 31.2 (31.0-35.0) g/dl RDW 16.7 H (11.0-16.0) % Plt Count 277 (160-400) X10*3/uL MPV 9.5 (9.4-12.3) fL Immature Gran % (Auto) 0.2 (0.0-0.4) % Neut % (Auto) 71.4 (45-73) % Lymph % (Auto) 20.0 (20-40) % [place] % (Auto) 8.0 (2-11) % Eos % (Auto) 0.2 (0-4) % Baso % (Auto) 0.2 (0-2) % Lymph # (Auto) 1.9 (1.2-4.9) X10*3/uL [place] # (Auto) 0.8 (0.1-1.2) X10*3/uL Eos # (Auto) 0.0 (0.0-0.4) X10*3/uL Baso # (Auto) 0.0 (0.0-0.2) X10*3/uL Abs Immat Gran (auto) 0.02 (0.00-0.03) X10*3/uL Absolute Neuts (auto) 6.8 (2.0-8.3) X10*3/uL Absolute Nucleated RBC 0.000 (0.0-0.012) X10*3/uL Nucleated RBC % (auto) 0.0 (0.0-0.2) /100WBC Sodium (135-145) mmol/L Potassium (3.3-5.1) mmol/L Chloride (96-108) mmol/L Carbon Dioxide (22-29) mmol/L Anion Gap (12-20) BUN (9-16) mg/dL Creatinine (0.5-1.4) mg/dL Estim Creat Clear Calc Estimated GFR Random Glucose (60-115) mg/dL Lactic Acid (0.5-2.0) mmol/L Calcium (8.4-10.2) mg/dL Total Bilirubin (0.0-1.0) mg/dL AST (5-31) U/L ALT (0-31) U/L Alkaline Phosphatase (39-117) U/L Total Protein (6.5-8.0) g/dL Albumin (3.5-5.0) g/dL Lipase (8-78) U/L Ethyl Alcohol < 10 mg/dL COVID-19 (AUTUMN) Negative (Negative) COVID-19 Clin Com See Note 10/04/20 Range/Units 19:21 WBC (4.8-10.8) X10*3/uL RBC (4.20-5.50) X10*6/uL Hgb (12.0-16.0) g/dl Hct (37-47) % MCV (80-98) fL MCH (27.0-33.0) pg MCHC (31.0-35.0) g/dl RDW (11.0-16.0) % Plt Count (160-400) X10*3/uL MPV (9.4-12.3) fL Immature Gran % (Auto) (0.0-0.4) % Neut % (Auto) (45-73) % Lymph % (Auto) (20-40) % [place] % (Auto) (2-11) % Eos % (Auto) (0-4) % Baso % (Auto) (0-2) % Lymph # (Auto) (1.2-4.9) X10*3/uL [place] # (Auto) (0.1-1.2) X10*3/uL Eos # (Auto) (0.0-0.4) X10*3/uL Baso # (Auto) (0.0-0.2) X10*3/uL Abs Immat Gran (auto) (0.00-0.03) X10*3/uL Absolute Neuts (auto) (2.0-8.3) X10*3/uL Absolute Nucleated RBC (0.0-0.012) X10*3/uL Nucleated RBC % (auto) (0.0-0.2) /100WBC Sodium (135-145) mmol/L Potassium (3.3-5.1) mmol/L Chloride (96-108) mmol/L Carbon Dioxide (22-29) mmol/L Anion Gap (12-20) BUN (9-16) mg/dL Creatinine (0.5-1.4) mg/dL Estim Creat Clear Calc Estimated GFR Random Glucose (60-115) mg/dL Lactic Acid 1.0 (0.5-2.0) mmol/L Calcium (8.4-10.2) mg/dL Total Bilirubin (0.0-1.0) mg/dL AST (5-31) U/L ALT (0-31) U/L Alkaline Phosphatase (39-117) U/L Total Protein (6.5-8.0) g/dL Albumin (3.5-5.0) g/dL Lipase (8-78) U/L Ethyl Alcohol mg/dL COVID-19 (AUTUMN) (Negative) COVID-19 Clin Com Discharge Plan Discharge Prescriptions: No Action clonidine HCl 0.1 mg tablet 1 tab PO TID RF: 0 desogestrel-ethinyl estradiol [Apri] 0.15-0.03 mg tablet 1 tab PO DAILY RF: 0 quetiapine 300 mg tablet 1 tab PO BEDTIME RF: 0 ibuprofen 800 mg tablet 1 tab PO Q8H RF: 0 gabapentin 400 mg capsule 1 cap PO TID RF: 0 metronidazole 500 mg tablet 1 tab PO Q12H RF: 0 quetiapine 100 mg tablet 1 tab PO DAILY RF: 0 famotidine 20 mg tablet 1 tab PO DAILY RF: 0
[2020-10-04 19:09] LABS: Alanine Aminotransferase 11 U/L (0-31); Albumin Level 4.6 g/dL (3.5-5.0); Alkaline Phosphatase 61 U/L (39-117); Anion Gap 18 (12-20); Aspartate Amino Transferase 23 U/L (5-31); Bilirubin Total 0.3 mg/dL (0.0-1.0); Blood Urea Nitrogen 17 mg/dL (9-16); Carbon Dioxide 23 mmol/L (22-29); Chloride 104 mmol/L (96-108); Creatinine Clr Calc Pharmacy 66.4; Estimated Glomerular Filt Rate > 60; Glucose Random 99 mg/dL (60-115); Potassium 3.6 mmol/L (3.3-5.1); Sodium 141 mmol/L (135-145); Total Protein 8.1 g/dL (6.5-8.0)
[2020-10-04 19:11] LABS: Lipase < 4 U/L (8-78)
[2020-10-04] MEDS: LORazepam 2 MG/ML VIAL 1 MG IVPUSH (19:15)
[2020-10-04] MEDS: diphenhydrAMINE HCL 50 MG/ML VIAL IVPUSH (19:15)
[2020-10-04] MEDS: Haloperidol Lactate 5 MG/ML VIAL IVPUSH (19:36)
[2020-10-04 19:49] VITALS: BP 115/70; PULSE 84; RESP 14; O2SAT 94
--- NOTE | 2020-10-04 19:51 | PC.NURSE ---
Patient anxious and restless in the bed as well as unable to follow commands. Haldol given to help modify her symptoms so that she was able to participate in her care.
--- NOTE | 2020-10-04 20:34 | MHC.RECOVSUP ---
? Reason for consult o Current location: o Identified substance use concern: <del>-</del> <del>Overdose</del> <del>-</del> <del>Withdrawal</del> <del>-</del> <del>Seeking</del> <del>ATS</del> <del>(detox)</del> <del>-</del> <del>Support</del> <del>?</del> <del>Intervention:</del> <del>o</del> <del>ATS</del> <del>bed</del> <del>search</del> <del>started/completed/in</del> <del>process</del> <del>o</del> <del>MAT</del> <del>started</del> <del>or</del> <del>to</del> <del>be</del> <del>started</del> <del>o</del> <del>Community</del> <del>resources</del> <del>provided</del> <del>o</del> <del>Harm</del> <del>reduction</del> <del>discussion</del> <del>?</del> <del>Plan:</del> <del>o</del> <del>Referral</del> <del>to</del> <del>[facility]</del> <del>o</del> <del>Bed</del> <del>search</del> <del>in</del> <del>progress</del> <del>to</del> <del>o</del> <del>Follow</del> <del>up</del> <del>tomorrow</del> <del>o</del> <del>Patient</del> <del>awaiting</del> <del>crisis</del> <del>evaluation</del> <del>o</del> <del>Patient</del> <del>to</del> <del>follow</del> <del>up</del> <del>with</del> <del>[facility]</del> <del>after</del> <del>discharge</del> ? Additional information: Patient refused an interview.. Stating Not Right Now Please and that Maybe Later...
--- NOTE | 2020-10-04 20:38 | MHC.RECOVSUP ---
? Reason for consult Recovery Support o Current location: ED22 o Identified substance use concern: Heroin <del>-</del> <del>Overdose</del> <del>-</del> <del>Withdrawal</del> <del>-</del> <del>Seeking</del> <del>ATS</del> <del>(detox)</del> <del>-</del> <del>Support</del> <del>?</del> <del>Intervention:</del> <del>o</del> <del>ATS</del> <del>bed</del> <del>search</del> <del>started/completed/in</del> <del>process</del> <del>o</del> <del>MAT</del> <del>started</del> <del>or</del> <del>to</del> <del>be</del> <del>started</del> <del>o</del> <del>Community</del> <del>resources</del> <del>provided</del> <del>o</del> <del>Harm</del> <del>reduction</del> <del>discussion</del> <del>?</del> <del>Plan:</del> <del>o</del> <del>Referral</del> <del>to</del> <del>[facility]</del> <del>o</del> <del>Bed</del> <del>search</del> <del>in</del> <del>progress</del> <del>to</del> <del>o</del> <del>Follow</del> <del>up</del> <del>tomorrow</del> <del>o</del> <del>Patient</del> <del>awaiting</del> <del>crisis</del> <del>evaluation</del> <del>o</del> <del>Patient</del> <del>to</del> <del>follow</del> <del>up</del> <del>with</del> <del>[facility]</del> <del>after</del> <del>discharge</del> ? Additional information: Patient refused an interview stating Not right now.. Maybe later
[2020-10-04 22:00] VITALS: BP 103/54; PULSE 66; RESP 16; TEMP 36.9; O2SAT 94
[2020-10-04 23:49] VITALS: BP 122/86; PULSE 63; RESP 16; TEMP 36.6; O2SAT 99
[2020-10-05] VITALS (9 sets, daily range): BP systolic 90–120; BP diastolic 43–81; PULSE 47–73; RESP 14–17; TEMP 36.1–37; O2SAT 96–99
[2020-10-05] MEDS: LORazepam 2 MG/ML VIAL 1 MG IVPUSH (00:43)
[2020-10-05] MEDS: Haloperidol Lactate 5 MG/ML VIAL IVPUSH (00:43)
--- NOTE | 2020-10-05 08:02 | PC.NURSE ---
IV haldol and ativan not given by this rn. ordered and scheduled on previous shift.
--- NOTE | 2020-10-05 08:08 | PC.NURSE ---
breakfast provided, pt asleep was woken up by this writer editor, pt states will eat later. breakfast left at bedside. will revisit.
--- NOTE | 2020-10-05 10:13 | PC.NURSE ---
Pt asleep, scheduled meds held per BHARAT Martins.
[2020-10-05] MEDS: cloNIDine HCL 0.1 MG TABLET PO ×2 (12:31→20:22)
[2020-10-05] MEDS: metroNIDAZOLE 500 MG TABLET PO ×2 (12:31→20:22)
[2020-10-05] MEDS: Piperacillin Sodium/Tazobactam 3.375 GM in 0.9 % Sodium Chloride 50 ML IV ×2 (12:34→20:22)
[2020-10-05] MEDS: Ibuprofen 800 MG TABLET PO (12:34)
[2020-10-05] MEDS: Gabapentin 400 MG CAPSULE PO ×2 (12:35→20:23)
[2020-10-05 12:37] LABS: MANUAL DIFF FLAG NO
[2020-10-05] MEDS: QUEtiapine Fumarate 100 MG TABLET PO (12:37)
[2020-10-05 12:43] LABS: Basophils Percent Auto 0.4 % (0-2); Eosinophils Absolute Auto 0.1 X10*3/uL (0.0-0.4); Eosinophils Percent Auto 2.8 % (0-4); Hematocrit 33.2 % (37-47); Hemoglobin 10.3 g/dl (12.0-16.0); Imm Gran Abs Auto 0.01 X10*3/uL (0.00-0.03); Imm Gran Pct Auto 0.2 % (0.0-0.4); Lymphocytes Absolute Auto 1.8 X10*3/uL (1.2-4.9); Lymphocytes Percent Auto 35.6 % (20-40); Mean Corpuscular Volume 86.9 fL (80-98); Monocytes Absolute Auto 0.4 X10*3/uL (0.1-1.2); Monocytes Percent Auto 8.5 % (2-11); Neutrophils Absolute Auto 2.7 X10*3/uL (2.0-8.3); Neutrophils Percent Auto 52.5 % (45-73); Platelet Count 254 X10*3/uL (160-400); Red Blood Count 3.82 X10*6/uL (4.20-5.50); Red Cell Distribution Width 16.6 % (11.0-16.0); White Blood Count 5.1 X10*3/uL (4.8-10.8)
[2020-10-05 12:46] LABS: Prothrombin Time 11.8 SEC (9.9-13.0)
[2020-10-05] MEDS: 0.9 % Sodium Chloride 1,769.01 ML 1769.01 ML IV (13:04)
[2020-10-05 13:16] LABS: Lactic Acid 0.7 mmol/L (0.5-2.0)
[2020-10-05 13:17] LABS: Magnesium 2.4 mg/dL (1.6-2.6)
[2020-10-05 13:18] LABS: Alanine Aminotransferase 13 U/L (0-31); Alkaline Phosphatase 53 U/L (39-117); Anion Gap 15 (12-20); Aspartate Amino Transferase 26 U/L (5-31); Bilirubin Total 0.2 mg/dL (0.0-1.0); Blood Urea Nitrogen 14 mg/dL (9-16); Calcium 9.2 mg/dL (8.4-10.2); Carbon Dioxide 24 mmol/L (22-29); Chloride 104 mmol/L (96-108); Creatinine Clr Calc Pharmacy 82.5; Estimated Glomerular Filt Rate > 60; Glucose Random 84 mg/dL (60-115); Potassium 3.7 mmol/L (3.3-5.1); Sodium 139 mmol/L (135-145); Total Protein 7.2 g/dL (6.5-8.0)
[2020-10-05] MEDS: iohexoL 350 MG/ML 100 ML INFUS..BTL IV (13:23)
[2020-10-05] MEDS: Famotidine 20 MG TABLET PO (13:35)
[2020-10-05 14:19] LABS: Glucose Urine UA NEG (NEG); Leukocyte Esterase Urine NEG (NEG); Nitrite Urine NEG (NEG); Specific Gravity - Urine <= 1.005 (1.005-1.025); Urine Blood NEG (NEG); Urine Ketones NEG (NEG); Urine Protein TRACE MG/DL (NEG-TRACE)
[2020-10-05 14:23] LABS: Appearance Urine CLEAR; Color Urine YELLOW
--- NOTE | 2020-10-05 15:23 | PM.IMHP ---
History of Present Illness Date of Service: 10/05/20 Chief Complaint: abdominal pain This is a 35-year-old female with a past medical history of IV substance abuse, actively using with last use 24 hours prior to arrival to the emergency room, bipolar disorder with [place] [facility] [place] who presented to the emergency room on 10/04/2020 with complaints of abdominal pain. patient was treated for this in the emergency room. As part of her workup she had blood cultures drawn. She Was medically cleared and was awaiting a crisis evaluation (not sure what for). while awaiting crisis evaluation, her blood cultures which were drawn yesterday returned positive 1/2 bottles for Gram-positive cocci and Gram-negative rods. she had repeat lab work completed and underwent a CT scan of the abdomen and pelvis which showed diffuse constipation without any other acute findings. She was given a dose of IV Zosyn and vancomycin and admission was requested. When I went to interview the patient, she was laying in her bed asleep comfortably with her blanket over her head. I was able to wake her up, however she was not interested in providing any history. As such history is mainly from the ED providers and chart review. Review of Systems Review of Systems: is not answering any questions PMFSH Medical History Acute anxiety Anxiety Depression Depression Drug-induced psychotic disorder History of drug dependence/abuse Opiate withdrawal PTSD (post-traumatic stress disorder) Social History Household Members: Other Household Members Other:: grandmother Housing: Apartment Do you presently have visiting nurse or other home services: No 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: current 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 frequency: 0-2 drinks per day Alcohol type: beer, wine and hard liquor Patient Tobacco Use Status: Current everyday Tobacco user Cigarette Packs Per Day: 1.5 Cigarettes Per Day: 30.0 Years Smoked: 23 Smoked in Last 30 Days: Yes Second Hand Smoke Exposure: Yes Use of substances other than those prescribed or required for medical reasons: Yes Substance Use Type: Amphetamines, Crack/Cocaine, Hallucinogens, Heroin, IV Drugs, Marijuana, Methamphetamine, Opiates, Painkillers, Prescription Drugs and Sedatives Substance Use Frequency: Chronic Longstanding Last Used Substance: Just Prior to Admission Any prior treatment program specific to substance use: Yes (Reports previous section 35) Advance Directives: No Advance Directives Information Provided: No Patient : No Meds Allergies Allergy/AdvReac Type Severity Reaction Status Date / Time No Known Allergies Allergy Verified 07/02/20 11:28 [No Known Allergies*] Active Medications: Current Medications Generic Name Dose Route Start Last Admin Trade Name Freq PRN Reason Stop Dose Admin Acetaminophen 650 mg 10/05/20 15:10 Acetaminophen 325 Mg Tablet PO Q6H PRN Fever Clonazepam 2 mg 10/05/20 11:41 Clonazepam 1 Mg Tablet PO Q6H PRN anxiety Clonidine HCl 0.1 mg 10/05/20 09:30 10/05/20 12:31 Clonidine Hcl 0.1 Mg Tablet PO 0.1 mg TID JAIR Administration Protocol Enoxaparin Sodium 40 mg 10/05/20 18:00 Enoxaparin Sodium 40 Mg/0.4 Ml Syringe SUBCUT Q24H JAIR Famotidine 20 mg 10/05/20 09:30 10/05/20 13:35 Famotidine 20 Mg Tablet PO 20 mg DAILY JAIR Administration Gabapentin 400 mg 10/05/20 09:30 10/05/20 12:35 Gabapentin 400 Mg Capsule PO 400 mg TID JAIR Administration Vancomycin HCl 1,000 mg/ 270 mls @ 270 mls/hr 10/05/20 14:54 Sodium Chloride IV 10/05/20 15:53 ONCE ONE Dextrose/Sodium Chloride 1,000 mls @ 100 mls/hr 10/05/20 15:15 D5ns IVCONT .Q10H JAIR Piperacillin Sod/Tazobactam 50 mls @ 100 mls/hr 10/05/20 15:30 Sod 3.375 gm/ Sodium Chloride IV Q6H JAIR Ibuprofen 800 mg 10/05/20 09:30 10/05/20 12:34 Ibuprofen 800 Mg Tablet PO 800 mg Q8H JAIR Administration Metronidazole 500 mg 10/05/20 09:30 10/05/20 12:31 Metronidazole 500 Mg Tablet PO 500 mg Q12H JAIR Administration Ondansetron HCl 4 mg 10/05/20 15:15 Ondansetron Hcl 4 Mg/2 Ml Vial IVPUSH Q8H PRN Nausea and Vomiting Pharmacy Consult 1 each 10/05/20 00:32 Consult Rx Perform Med Rec MISCELLANE ONCE PRN Consult order Pharmacy Consult 1 each 10/05/20 14:54 Consult Rx Vancomycin Dosing MISCELLANE DAILY PRN Consult order Pharmacy Consult 1 each 10/05/20 15:20 Consult Rx Vancomycin Dosing MISCELLANE DAILY PRN Consult order Quetiapine Fumarate 100 mg 10/05/20 09:30 10/05/20 12:37 Quetiapine Fumarate 100 Mg Tablet PO 100 mg DAILY JAIR Administration Quetiapine Fumarate 300 mg 10/05/20 21:00 Quetiapine Fumarate 300 Mg Tablet PO BEDTIME JAIR Sodium Chloride 3 ml 10/05/20 16:00 0.9 % Sodium Chloride Flush 3 Ml Syringe IVFLUSH QSHIFT [facility] Home Medications Medication Instructions Recorded Confirmed Last Taken Type clonidine HCl 1 tab PO TID 10/04/20 10/04/20 Unknown History desogestrel-ethinyl estradiol 1 tab PO DAILY 10/04/20 10/04/20 Unknown History [Apri] famotidine 1 tab PO DAILY 10/04/20 10/04/20 Unknown History gabapentin 1 cap PO TID 10/04/20 10/04/20 Unknown History ibuprofen 1 tab PO Q8H 10/04/20 10/04/20 Unknown History metronidazole 1 tab PO Q12H 10/04/20 10/04/20 Unknown History quetiapine 1 tab PO BEDTIME 10/04/20 10/04/20 Unknown History quetiapine 1 tab PO DAILY 10/04/20 10/04/20 Unknown History Physical Exam Vital Signs and Narrative: Vital Signs: Last Vital Signs Temp 98.4 F 10/05/20 12:39 Pulse 59 10/05/20 12:39 Resp 16 10/05/20 12:39 BP 110/71 10/05/20 12:39 Pulse Ox 96 10/05/20 12:39 Body Mass Index 22.3 Const: Other: Constitutional - sleeping in bed, awakens to name and then not talking much Eyes - PERRLA, EOMI Cardiovascular - S1S2, no audible murmur Respiratory - Normal lung expansion, Normal respiratory effort, No respiratory distress, CTA bilaterally Gastrointestinal - NT / ND; +BS; No rebound or guarding - No CVA tenderness Extremities - no calf tenderness bilaterally, no swelling Musculoskeletal - Normal inspection, normal ROM Skin - evience of skin popping Neurological - Alert & oriented x3, No focal deficit Results Labs CBC and Chem 7: 10/05/20 12:32 10/05/20 12:32 Labs: Laboratory Results - last 24 hr 10/04/20 10/04/20 10/04/20 18:30 18:30 18:30 MCV MCH MCHC RDW Plt Count MPV Immature Gran % (Auto) Neut % (Auto) Lymph % (Auto) [place] % (Auto) Eos % (Auto) Baso % (Auto) Lymph # (Auto) [place] # (Auto) Eos # (Auto) Baso # (Auto) Abs Immat Gran (auto) Absolute Neuts (auto) Absolute Nucleated RBC Nucleated RBC % (auto) PT INR Anion Gap 18 Estim Creat Clear Calc 66.4 Estimated GFR > 60 Random Glucose 99 Lactic Acid 1.2 Calcium 10.0 D Magnesium Total Bilirubin 0.3 AST 23 ALT 11 Alkaline Phosphatase 61 D Total Protein 8.1 H D Albumin 4.6 D Lipase < 4 L Urine Color Urine Appearance Urine pH Ur Specific [place] Urine Protein Urine Glucose (UA) Urine Ketones Urine Blood Urine Nitrite Ur Leukocyte Esterase Ethyl Alcohol COVID-19 (AUTUMN) COVID-19 Clin Com 10/04/20 10/04/20 10/04/20 18:34 18:34 18:34 MCV 86.5 MCH 27.0 MCHC 31.2 RDW 16.7 H Plt Count 277 MPV 9.5 Immature Gran % (Auto) 0.2 Neut % (Auto) 71.4 Lymph % (Auto) 20.0 [place] % (Auto) 8.0 Eos % (Auto) 0.2 Baso % (Auto) 0.2 Lymph # (Auto) 1.9 [place] # (Auto) 0.8 Eos # (Auto) 0.0 Baso # (Auto) 0.0 Abs Immat Gran (auto) 0.02 Absolute Neuts (auto) 6.8 Absolute Nucleated RBC 0.000 Nucleated RBC % (auto) 0.0 PT INR Anion Gap Estim Creat Clear Calc Estimated GFR Random Glucose Lactic Acid Calcium Magnesium Total Bilirubin AST ALT Alkaline Phosphatase Total Protein Albumin Lipase Urine Color Urine Appearance Urine pH Ur Specific [place] Urine Protein Urine Glucose (UA) Urine Ketones Urine Blood Urine Nitrite Ur Leukocyte Esterase Ethyl Alcohol < 10 COVID-19 (AUTUMN) Negative COVID-19 Clin Com See Note 10/04/20 10/05/20 10/05/20 19:21 12:32 12:32 MCV 86.9 MCH 27.0 MCHC 31.0 RDW 16.6 H Plt Count 254 MPV 10.0 Immature Gran % (Auto) 0.2 Neut % (Auto) 52.5 Lymph % (Auto) 35.6 [place] % (Auto) 8.5 Eos % (Auto) 2.8 Baso % (Auto) 0.4 Lymph # (Auto) 1.8 [place] # (Auto) 0.4 Eos # (Auto) 0.1 Baso # (Auto) 0.0 Abs Immat Gran (auto) 0.01 Absolute Neuts (auto) 2.7 Absolute Nucleated RBC 0.000 Nucleated RBC % (auto) 0.0 PT INR Anion Gap Estim Creat Clear Calc Estimated GFR Random Glucose Lactic Acid 1.0 Calcium Magnesium 2.4 Total Bilirubin AST ALT Alkaline Phosphatase Total Protein Albumin Lipase Urine Color Urine Appearance Urine pH Ur Specific [place] Urine Protein Urine Glucose (UA) Urine Ketones Urine Blood Urine Nitrite Ur Leukocyte Esterase Ethyl Alcohol COVID-19 (AUTUMN) COVID-19 [facility] Com 10/05/20 10/05/20 10/05/20 12:32 12:32 12:32 MCV MCH MCHC RDW Plt Count MPV Immature Gran % (Auto) Neut % (Auto) Lymph % (Auto) [place] % (Auto) Eos % (Auto) Baso % (Auto) Lymph # (Auto) [place] # (Auto) Eos # (Auto) Baso # (Auto) Abs Immat Gran (auto) Absolute Neuts (auto) Absolute Nucleated RBC Nucleated RBC % (auto) PT 11.8 INR 1.0 Anion Gap 15 Estim Creat Clear Calc 82.5 Estimated GFR > 60 Random Glucose 84 Lactic Acid 0.7 Calcium 9.2 D Magnesium Total Bilirubin 0.2 AST 26 ALT 13 Alkaline Phosphatase 53 Total Protein 7.2 Albumin 4.0 Lipase Urine Color Urine Appearance Urine pH Ur Specific [place] Urine Protein Urine Glucose (UA) Urine Ketones Urine Blood Urine Nitrite Ur Leukocyte Esterase Ethyl Alcohol COVID-19 (AUTUMN) COVID-19 [employer] Com 10/05/20 14:11 MCV MCH MCHC RDW Plt Count MPV Immature Gran % (Auto) Neut % (Auto) Lymph % (Auto) [place] % (Auto) Eos % (Auto) Baso % (Auto) Lymph # (Auto) [place] # (Auto) Eos # (Auto) Baso # (Auto) Abs Immat Gran (auto) Absolute Neuts (auto) Absolute Nucleated RBC Nucleated RBC % (auto) PT INR Anion Gap Estim Creat Clear Calc Estimated GFR Random Glucose Lactic Acid Calcium Magnesium Total Bilirubin AST ALT Alkaline Phosphatase Total Protein Albumin Lipase Urine Color YELLOW Urine Appearance CLEAR Urine pH 6.0 Ur Specific [place] <= 1.005 Urine Protein TRACE Urine Glucose (UA) NEG Urine Ketones NEG Urine Blood NEG Urine Nitrite NEG Ur Leukocyte Esterase NEG Ethyl Alcohol COVID-19 (AUTUMN) COVID-19 Clin Com Imaging Radiologist's Impressions: Impressions Abdomen/Pelvis CT 10/05/20 11:39 IMPRESSION: 1. Stool throughout entire colon cecum to rectum. No proximal obstruction or focal inflammatory changes. 2. No ascites or fluid collection. No pneumatosis in bowel or uterus. 3. Kidneys enhance symmetrically. No hydronephrosis or perinephric stranding. Chest X-Ray 10/05/20 14:09 IMPRESSION: Unremarkable examination. Assessment and Plan (1) Polymicrobial bacterial infection: Status: Acute This is a 35 yo F with a PMH of Bipolar disorder, active IVDU who presented to the ED with complaints of abdominal pain on 10/04/2020. She was medically stabilized and was awaiting crisis evaluation. However, her blood cultures resulted positive and so she will be admitted for further mgmt. 1. Polymicrobial bacteremia GPC + GNB in 1/2 bottles no definitive source IV vancomcyin / zosyn will wait for final C&S + ID evaluation. May need Echo. Repeat Cx with tomorrow AM labs 2. Polysubstance abuse reportedly on methadone given 30mg this AM in the ED continue once dose confirmed 3. Mood continue baseline meds unclear if she endorses SI while awaiting in the ED. She has not endorsed SI to me. Will place sitter and get BHN/Crisis once medically cleared 4. Possible STI sent for GC/Chlam on Flagyl as outpatient for reported expose to Trich -- complete course Full Code DVT pptx, Lovenox Quality Stroke Does the patient have a stroke diagnosis?: No VTE Prior VTE?: No VTE Risk Level:: Medical - moderate - high VTE Device Contraindication: Treatment Not Indicated VTE Drug Contraindication: N/A - Med Ordered
[2020-10-05] MEDS: vancomycin HCL 1,000 MG in 0.9 % Sodium Chloride 250 ML 270 MG IV (16:09)
--- NOTE | 2020-10-05 17:45 | PC.NURSE ---
Meds scheduled for 1500 held per BHARAT Martins. Pt asleep, dinner order placed, pt awaiting bed placement.
[2020-10-05] MEDS: 0.9 % Sodium Chloride Flush 3 ML SYRINGE IVFLUSH (17:50)
[2020-10-05] MEDS: Dextrose 5 % and 0.9 % NaCl 1,000 ML 100 ML IVCONT (18:05)
--- NOTE | 2020-10-05 18:24 | MHC.CM.PN ---
CM attempted to meet with patient. Pt would not remove blanket from her head and only answered a few questions with yes or no questions. Pt aware she will be admitted. PCP unknown. Pt states she lives in her grandmother's home. When asked if CM should call anyone to let them know she will be admitted, pt refused to answer. When asked about a HCP, pt stated her EX Ayad, but was unable or unwilling to give CM any contact information on Ayad . Pt became agitated when CM tried to continue speaking with her. CM let pt know that she would be moved to the floor when a room is available. According to Chart review, Dr. Mclean will consult BHN/Crisis when pt medically cleared. Recovery Team aware of pt admission and will see pt over the weekend. Pt started on methadone 30 mg po today. Pt actively using polysubstances, including heroin and cocaine IV. Pt was unwilling to speak with organ recovery coordinator yesterday. CM will follow for d/c needs.
--- NOTE | 2020-10-05 19:30 | PC.NURSE ---
CLOTHING PLACED IN [facility] ROOM BY SECURITY.
[2020-10-05] MEDS: Enoxaparin Sodium 40 MG/0.4 ML SYRINGE SUBCUT (20:22)
[2020-10-05] MEDS: Sennosides 8.6 MG TABLET 17.2 MG PO (20:22)
[2020-10-05] MEDS: QUEtiapine Fumarate 300 MG TABLET PO (20:23)
[2020-10-05 23:08] LABS: CT PCR NOT DETECTED (Not Detect.); NG PCR NOT DETECTED (Not Detect.)
[2020-10-05] MEDS: hydrOXYzine HCL 25 MG TABLET PO (23:15)
[2020-10-06] VITALS (7 sets, daily range): BP systolic 100–126; BP diastolic 62–80; PULSE 50–74; RESP 16–18; TEMP 36.6–36.7; O2SAT 98–99
[2020-10-06] MEDS: Piperacillin Sodium/Tazobactam 3.375 GM in 0.9 % Sodium Chloride 50 ML IV ×4 (01:00→18:35)
[2020-10-06] MEDS: vancomycin HCL 750 MG in 0.9 % Sodium Chloride 250 ML 265 MG IV ×2 (04:17→14:55)
[2020-10-06] MEDS: hydrOXYzine HCL 25 MG TABLET PO ×2 (06:31→19:52)
[2020-10-06] MEDS: metroNIDAZOLE 500 MG TABLET PO ×2 (08:04→20:35)
[2020-10-06] MEDS: Gabapentin 400 MG CAPSULE PO ×3 (08:05→20:35)
[2020-10-06] MEDS: QUEtiapine Fumarate 100 MG TABLET PO (08:05)
[2020-10-06] MEDS: Famotidine 20 MG TABLET PO (08:05)
[2020-10-06] MEDS: polyethylene glycoL 3350 17 GM POWD.PACK PO (08:05)
--- NOTE | 2020-10-06 10:43 | MHC.CM.PN ---
CM ATTEMPTED TO MEET WITH PT WHO WAS SLEEPING. CM WILL REVISIT
--- NOTE | 2020-10-06 12:51 | MHC.CARE ---
CARE attempted to engage pt who was still appearing to be asleep and not willing to wake. CARE shared this w pts nurse and advised to reach out to CARE as needed.
[2020-10-06 13:35] LABS: BV Int Neg Control Negative (Negative); BV Int Pos Control Positive (Positive)
--- NOTE | 2020-10-06 14:16 | P.PNIM_ITS ---
Subjective Subjective Date of Service: 10/06/20 Interval History: Patient refusing to provide history requesting for methadone admitting that she is going through withdrawal symptoms complaining of leg pain, foot pain, back pain and nausea unable to obtain a detailed review of systems since patient not cooperative due to withdrawal symptoms. Physical Exam Vital Signs: Vital Signs: Last Vital Signs Temp 97.8 F 10/06/20 07:11 Pulse 63 10/06/20 11:39 Resp 16 10/06/20 11:39 BP 102/62 10/06/20 11:39 Pulse Ox 98 10/06/20 11:39 Body Mass Index 22.3 General no acute distress/restless. Neck no JVD. CVS regular rate rhythm, Respiratory lungs clear to auscultation, no respiratory distress, Gastrointestinal abdomen soft, nontender, bowel sounds audible Extremities no edema. No redness, no swelling noted on both feet Neuro nonfocal , moving all 4 extremity, speech clear. Skin multiple dried scabs lower extremity, no open wounds noted. Objective Data Current Medications Generic Name Dose Route Start Last Admin Trade Name Radha PRN Reason Stop Dose Admin Acetaminophen 650 mg 10/05/20 15:10 Acetaminophen 325 Mg Tablet PO Q6H PRN Fever Clonidine HCl 0.1 mg 10/06/20 21:00 Clonidine Hcl 0.1 Mg Tablet PO BID JAIR Protocol Enoxaparin Sodium 40 mg 10/05/20 18:00 10/05/20 20:22 Enoxaparin Sodium 40 Mg/0.4 Ml Syringe SUBCUT 40 mg Q24H JAIR Administration Famotidine 20 mg 10/05/20 09:30 10/06/20 08:05 Famotidine 20 Mg Tablet PO 20 mg DAILY JAIR Administration Gabapentin 400 mg 10/05/20 09:30 10/06/20 08:05 Gabapentin 400 Mg Capsule PO 400 mg TID JAIR Administration Hydroxyzine HCl 25 mg 10/05/20 23:00 10/06/20 06:31 Hydroxyzine Hcl 25 Mg Tablet PO 25 mg Q6H PRN Administration anxiety/restlessness Piperacillin Sod/Tazobactam 50 mls @ 100 mls/hr 10/05/20 18:00 10/06/20 13:02 Sod 3.375 gm/ Sodium Chloride IV Infused Q6H JAIR Infusion Vancomycin HCl 750 mg/ Sodium 265 mls @ 265 mls/hr 10/06/20 04:00 10/06/20 05:29 Chloride IV Infused Q12H JAIR Infusion Lorazepam 0.5 mg 10/06/20 10:06 Lorazepam 2 Mg/Ml Vial IVPUSH Q6H PRN anxiety/restlessness Methadone HCl 30 mg 10/06/20 09:00 10/06/20 09:12 Methadone Hcl 1 Mg/0.1 Ml Oral.Conc PO 30 mg DAILY JAIR Administration Metronidazole 500 mg 10/05/20 09:30 10/06/20 08:04 Metronidazole 500 Mg Tablet PO 500 mg Q12H JAIR Administration Ondansetron HCl 4 mg 10/05/20 15:15 Ondansetron Hcl 4 Mg/2 Ml Vial IVPUSH Q8H PRN Nausea and Vomiting Pharmacy Consult 1 each 10/05/20 00:32 Consult Rx Perform Med Rec MISCELLANE ONCE PRN Consult order Pharmacy Consult 1 each 10/05/20 15:20 Consult Rx Vancomycin Dosing MISCELLANE DAILY PRN Consult order Polyethylene Glycol 17 gm 10/06/20 09:00 10/06/20 08:05 Polyethylene Glycol 3350 17 Gm Powd.Pack PO 17 gm DAILY JAIR Administration Quetiapine Fumarate 100 mg 10/05/20 09:30 10/06/20 08:05 Quetiapine Fumarate 100 Mg Tablet PO 100 mg DAILY JAIR Administration Quetiapine Fumarate 300 mg 10/05/20 21:00 10/05/20 20:23 Quetiapine Fumarate 300 Mg Tablet PO 300 mg BEDTIME JAIR Administration Senna 17.2 mg 10/05/20 21:00 10/05/20 20:22 Sennosides 8.6 Mg Tablet PO 17.2 mg BEDTIME JAIR Administration Sodium Chloride 3 ml 10/05/20 16:00 10/06/20 08:05 0.9 % Sodium Chloride Flush 3 Ml Syringe IVFLUSH Not Given QSHIFT [facility] Labs CBC & Chem 7: 10/05/20 12:32 10/05/20 12:32 Labs: Laboratory Results - last 24 hr 10/05/20 10/05/20 10/05/20 14:08 14:08 14:11 Urine Color YELLOW Urine Appearance CLEAR Urine pH 6.0 Ur Specific [place] <= 1.005 Urine Protein TRACE Urine Glucose (UA) NEG Urine Ketones NEG Urine Blood NEG Urine Nitrite NEG Ur Leukocyte Esterase NEG Gayatri species DNA Negative Chlam trachomat DNA PCR NOT DETECTED Gardnerella DNA Probe Negative N.gonorrhoeae DNA (PCR) NOT DETECTED Trichomonas DNA Probe Negative Microbiology Microbiology Results: Microbiology 10/04/20 18:29 Blood Culture - Preliminary Blood - Venous Staphylococcus aureus 10/04/20 18:29 Blood Culture - Preliminary Blood - Venous Staphylococcus aureus 10/05/20 14:08 Trichomonas Preparation - Final Vaginal Quality Stroke Does the patient have a stroke diagnosis?: No VTE Prior VTE?: No VTE Risk Level:: Medical - moderate - high VTE Device Contraindication: Treatment Not Indicated VTE Drug Contraindication: N/A - Med Ordered Assessment and Plan (1) Cocaine use disorder: Status: Acute (2) Polymicrobial bacterial infection: Status: Acute (3) Opioid abuse with opioid-induced mood disorder: Status: Acute (4) Atypical bipolar disorder: Status: Acute (5) Positive blood culture: Status: Acute (6) PTSD (post-traumatic stress disorder): Status: Acute Assessment and Plan: 35 yo F with a PMH of Bipolar disorder, active IVDU who presented to the ED with complaints of abdominal pain on 10/04/2020. She was medically stabilized and was awaiting crisis evaluation. However, her blood cultures resulted positive and so she will be admitted for further mgmt. 1. Polymicrobial bacteremia Patient denies abdominal pain no nausea vomiting, no fevers, no leukocytosis CT abdomen showed no acute abnormality, UA negative, no definite source of in fection found GPC in 2/2 bottles+ GNB in 1/2 bottles, repeat blood cultures pending Continue IV Vanco and IV Zosyn day 2 adjust antibiotics when final cultures are available Await ID input , check echo 2. Polysubstance abuse/withdrawal Patient injects and snorts cocaine Continue methadone 30 mg daily, add Ativan for withdrawal symptoms, decrease dose of clonidine due to low blood pressure and bradycardia Obtain care team consult 3. Mood continue baseline meds unclear if she endorses SI while awaiting in the ED. continue sitter obtain BHN consult once medically cleared 4. Possible STI GC/Chlam not detected on Flagyl as outpatient for reported expose to Trich , Trichomonas DNA negative Full Code DVT pptx, Lovenox
[2020-10-06] MEDS: 0.9 % Sodium Chloride Flush 3 ML SYRINGE IVFLUSH (14:55)
[2020-10-06] MEDS: LORazepam 2 MG/ML VIAL 0.5 MG IVPUSH ×2 (15:19→22:20)
[2020-10-06] MEDS: Sennosides 8.6 MG TABLET 17.2 MG PO (20:35)
[2020-10-06] MEDS: QUEtiapine Fumarate 300 MG TABLET PO (20:35)
[2020-10-06] MEDS: cloNIDine HCL 0.1 MG TABLET PO (20:36)
--- NOTE | 2020-10-06 22:09 | P.CNID_ITS ---
History of Present Illness Data of Consult Service Date: 10/06/20 Primary Care Provider: Unknown Physician HPI Reason for consult: bacteremia She presents to hospital with recurrent spasms after injfecting cocaine She has vacuum about a week ago and had said boyfriend reported trichomonas She has had chills as well as spasms He has staph aureus blood culture She doesnt have abdominal pain at this time Review of Systems Review of Systems: Yes Unobtainable due to mental condition Neurologic: Reports confusion Psychiatric: Psychiatric: Reports confusion [facility] Past Medical History Medical History Acute anxiety Anxiety Depression Depression Drug-induced psychotic disorder History of drug dependence/abuse Opiate withdrawal PTSD (post-traumatic stress disorder) Social History Social History Household Members: Family Household Members Other:: grandmother Housing: Unknown / Unable to assess Do you presently have visiting nurse or other home services: No Unable to assess alcohol history related to: Refusing to respond 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: current 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 frequency: 0-2 drinks per day Alcohol type: beer, wine and hard liquor Patient Tobacco Use Status: Tobacco use Unknown Cigarette Packs Per Day: 1.5 Cigarettes Per Day: 30.0 Years Smoked: 23 Smoked in Last 30 Days: Yes Second Hand Smoke Exposure: Yes Use of substances other than those prescribed or required for medical reasons: Refusing to respond Substance Use Type: IV Drugs Substance Use Frequency: Chronic Longstanding Last Used Substance: Unknown Currently Displaying Signs/Symptoms of Drug Intoxication Withdrawal: No Advance Directives: No Advance Directives Information Provided: No Do you have thoughts of harming others: None Do you have a plan to hurt others: No Plan Recently lost weight without trying: No Nutrition Risks: No Nutritional Risk Patient : No Meds Allergies Allergy/AdvReac Type Severity Reaction Status Date / Time No Known Allergies Allergy Verified 07/02/20 11:28 [No Known Allergies*] Active Medications: Current Medications Generic Name Dose Route Start Last Admin Trade Name Freq PRN Reason Stop Dose Admin Acetaminophen 650 mg 10/05/20 15:10 Acetaminophen 325 Mg Tablet PO Q6H PRN Fever Clonidine HCl 0.1 mg 10/06/20 21:00 10/06/20 20:36 Clonidine Hcl 0.1 Mg Tablet PO 0.1 mg BID JAIR Administration Protocol Enoxaparin Sodium 40 mg 10/05/20 18:00 10/06/20 18:35 Enoxaparin Sodium 40 Mg/0.4 Ml Syringe SUBCUT Not Given Q24H JAIR Famotidine 20 mg 10/05/20 09:30 10/06/20 08:05 Famotidine 20 Mg Tablet PO 20 mg DAILY JAIR Administration Gabapentin 400 mg 10/05/20 09:30 10/06/20 20:35 Gabapentin 400 Mg Capsule PO 400 mg TID JAIR Administration Hydroxyzine HCl 25 mg 10/05/20 23:00 10/06/20 19:52 Hydroxyzine Hcl 25 Mg Tablet PO 25 mg Q6H PRN Administration anxiety/restlessness Piperacillin Sod/Tazobactam 50 mls @ 100 mls/hr 10/05/20 18:00 10/06/20 19:24 Sod 3.375 gm/ Sodium Chloride IV Infused Q6H JAIR Infusion Vancomycin HCl 750 mg/ Sodium 265 mls @ 265 mls/hr 10/06/20 04:00 10/06/20 16:07 Chloride IV Infused Q12H JAIR Infusion Lorazepam 0.5 mg 10/06/20 10:06 10/06/20 15:19 Lorazepam 2 Mg/Ml Vial IVPUSH 0.5 mg Q6H PRN Administration anxiety/restlessness Methadone HCl 30 mg 10/06/20 09:00 10/06/20 09:12 Methadone Hcl 1 Mg/0.1 Ml Oral.Conc PO 30 mg DAILY JAIR Administration Metronidazole 500 mg 10/05/20 09:30 10/06/20 20:35 Metronidazole 500 Mg Tablet PO 500 mg Q12H JAIR Administration Ondansetron HCl 4 mg 10/05/20 15:15 Ondansetron Hcl 4 Mg/2 Ml Vial IVPUSH Q8H PRN Nausea and Vomiting Pharmacy Consult 1 each 10/05/20 00:32 Consult Rx Perform Med Rec MISCELLANE ONCE PRN Consult order Pharmacy Consult 1 each 10/05/20 15:20 Consult Rx Vancomycin Dosing MISCELLANE DAILY PRN Consult order Polyethylene Glycol 17 gm 10/06/20 09:00 10/06/20 08:05 Polyethylene Glycol 3350 17 Gm Powd.Pack PO 17 gm DAILY JAIR Administration Quetiapine Fumarate 100 mg 10/05/20 09:30 10/06/20 08:05 Quetiapine Fumarate 100 Mg Tablet PO 100 mg DAILY JAIR Administration Quetiapine Fumarate 300 mg 10/05/20 21:00 10/06/20 20:35 Quetiapine Fumarate 300 Mg Tablet PO 300 mg BEDTIME JAIR Administration Senna 17.2 mg 10/05/20 21:00 10/06/20 20:35 Sennosides 8.6 Mg Tablet PO 17.2 mg BEDTIME JAIR Administration Sodium Chloride 3 ml 10/05/20 16:00 10/06/20 14:55 0.9 % Sodium Chloride Flush 3 Ml Syringe IVFLUSH 3 ml QSHIFT JAIR Administration Home Medications Medication Instructions Recorded Confirmed Last Taken Type clonidine HCl 1 tab PO TID 10/04/20 10/04/20 Unknown History desogestrel-ethinyl estradiol 1 tab PO DAILY 10/04/20 10/04/20 Unknown History [Apri] famotidine 1 tab PO DAILY 10/04/20 10/04/20 Unknown History gabapentin 1 cap PO TID 10/04/20 10/04/20 Unknown History ibuprofen 1 tab PO Q8H 10/04/20 10/04/20 Unknown History metronidazole 1 tab PO Q12H 10/04/20 10/04/20 Unknown History quetiapine 1 tab PO BEDTIME 10/04/20 10/04/20 Unknown History quetiapine 1 tab PO DAILY 10/04/20 10/04/20 Unknown History methadone 30 mg PO DAILY 10/06/20 10/06/20 10/05/20 History 30 mg methadone [Methadone Intensol] 30 mg PO DAILY 10/06/20 10/06/20 Unknown History Physical Exam Vital Signs: Vital Signs: Last Vital Signs Temp 98.0 F 10/06/20 19:08 Pulse 50 10/06/20 20:36 Resp 16 10/06/20 19:08 BP 119/80 10/06/20 20:36 Pulse Ox 99 10/06/20 19:08 Body Mass Index 22.3 Const: General: confusion, ill appearing and lethargic Orientation/conscio usness: confusion and lethargic HENMT: Head: Yes normal to inspection Mouth: Normal oral and palatal mucosa present Resp: Effort & Inspection: normal respiratory effort Cardio: Rate: regular rate Rhythm: regular rhythm GI: Palpation (GI): Soft to palpation and nontender Skin: General skin exam: no rashes or lesions noted Neuro: General: moves all extremities and confusion Results Labs CBC & Chem 7: 10/05/20 12:32 10/05/20 12:32 Microbiology Microbiology Results: Microbiology 10/04/20 18:29 Blood - Venous Blood Culture - Preliminary Staphylococcus aureus 10/04/20 18:29 Blood - Venous Blood Culture - Preliminary Staphylococcus aureus 10/05/20 14:08 Vaginal Trichomonas Preparation - Final Assessment and Plan (1) Opioid abuse with opioid-induced mood disorder: Status: Acute (2) Positive blood culture: Status: Acute I see staph aureus blood culture She could have endocarditis She has IVDU as risk factor She also has had TAB and mentioned polymicrobial bacteremia,rest blood cultures pending Suggest Would continue Vancomycin Check echo Substance consult Treat trichomonas Flagyl 500 mg bid for a week
[2020-10-07] MEDS: 0.9 % Sodium Chloride Flush 3 ML SYRINGE IVFLUSH ×2 (00:03→08:40)
[2020-10-07] MEDS: Piperacillin Sodium/Tazobactam 3.375 GM in 0.9 % Sodium Chloride 50 ML IV ×2 (00:05→06:42)
[2020-10-07 03:45] LABS: Vancomycin Trough 5.6 mcg/mL (10.0-20.0)
[2020-10-07 04:00] VITALS: RESP 18
[2020-10-07] MEDS: vancomycin HCL 750 MG in 0.9 % Sodium Chloride 250 ML 265 MG IV (05:31)
[2020-10-07 08:00] VITALS: BP 126/79; PULSE 56; TEMP 36.5; O2SAT 97
[2020-10-07] MEDS: LORazepam 2 MG/ML VIAL 0.5 MG IVPUSH (08:35)
[2020-10-07] MEDS: metroNIDAZOLE 500 MG TABLET PO (08:38)
[2020-10-07] MEDS: Famotidine 20 MG TABLET PO (08:38)
[2020-10-07] MEDS: Gabapentin 400 MG CAPSULE PO (08:38)
[2020-10-07] MEDS: QUEtiapine Fumarate 100 MG TABLET PO (08:38)
[2020-10-07] MEDS: cloNIDine HCL 0.1 MG TABLET PO (08:39)
[2020-10-07] MEDS: hydrOXYzine HCL 25 MG TABLET PO (08:42)
--- NOTE | 2020-10-07 08:50 | MHC.CM.PN ---
CM ATTEMPTED TO MEET WITH PT WHO ON APPROACH ASKS WHO THE F*CK ARE YOU . AFTER INTRODUCTION, PT STATES I DON'T F*CK*NG NEED ANYTHING, I NEED TO GO GET HIGH . PT CONTINUES ON MY FRIENDS WON'T ANSWER THE PHONE, IM GOING TO GO TO THAT B*TCH'S HOUSE AND STEAL HER DEBIT CARD AND GET HIGH . PT REFUSING TO ANSWER ANY QUESTIONS. FUND DIRECTOR COMPLETED USING EMR. PT APPEARS TO LIVE WITH HER GRANDMOTHER AND BE INDEPENDENT WITH CARE AND MOBILITY. PT HAS NO RECORDED SERVICES OR DME AND NO HCP OR PCP. CURRENTLY PTS DC PLAN IS TBD PENDING FURTHER EVALUATION.
--- NOTE | 2020-10-07 11:16 | MHC.RECOVSUP ---
Recovery Support note: Patient is a 35 year old Armenian speaking female who presented to [facility] ED due to abdominal pain and was medically admitted. This telegraphic typewriter mechanic met with patient in to discuss her recovery, mental health and treatment options. Patient reported to this telegraphic typewriter mechanic that she does not want to remain in the hospital and that she wants to leave as soon as possible to get high. Patient reports she is on methadone maintenance through [facility] in [place], 30mg, and she does not find it helpful. Patient reports she plans to continue with the program and hopes that she will find a higher dose helpful. This telegraphic typewriter mechanic discussed [facility] with patient and explained the support that a recovery center and cost recovery technician can provide. Patient acknowledged and accepted information on this resource. Patient denies current SI and reports she has never experienced SI. Patient stated if I said I was, it was for attention. Patient reports she has never engaged in self-harming behaviors and reports no thoughts to harm herself. Patient states she would come to the hospital if she did have those thoughts. Patient reports symptoms of depression however reports she is well supported. Patient reports she feels safe to discharge and that she would go to her grandmothers house which is a safe and sober environment. Patient's partner was present during consultation and he reports no concerns related to patient's safety. He concurred with patient that she has never reported SI and that she has never attempted to harm herself. Discussed case with patient's RN, KIMANI, hospitalist and Flower Donohue NP.
--- NOTE | 2020-10-07 11:28 | PC.NURSE ---
1115 Pulled IV out and states I,m leaving Dr Hernández made aware. Pt signed papers. Dr Hernández spoke with patient. Script electonically sent. to her preferred pharmacy Verbalizing understanding Left with friend
--- NOTE | 2020-10-07 11:48 | P.DS_ITS ---
DS: Providers Provider Date of Service: 10/07/20 Date of admission: 10/05/20 15:10 Primary care physician: Unknown Physician Consults: 10/05/20 15:19 Consult to Infectious Diseases Routine Consulting Provider: Sydnie Barrera Reason for consultation: IVDU, polymicrobial bacteremia 10/05/20 16:09 Consult for Sitter Routine Reason for consultation: concern over SI 10/07/20 07:44 Addiction Medicine Routine Consulting Provider: Flower Donohue Reason for consultation: ivdu Has provider been notified: No DS: Diagnosis Discharge Diagnosis (1) Opioid abuse with opioid-induced mood disorder: Status: Acute (2) Positive blood culture: Status: Acute DS: Medications Discharge Medications Home Medications: Home Medications Medication Instructions Recorded Confirmed desogestrel-ethinyl estradiol 1 tab PO DAILY 10/04/20 10/04/20 [Apri] famotidine 1 tab PO DAILY 10/04/20 10/04/20 gabapentin 1 cap PO TID 10/04/20 10/04/20 metronidazole 1 tab PO Q12H 10/04/20 10/04/20 quetiapine 1 tab PO BEDTIME 10/04/20 10/04/20 quetiapine 1 tab PO DAILY 10/04/20 10/04/20 methadone [Methadone Intensol] 30 mg PO DAILY 10/06/20 10/06/20 Previous Rx's Medication Instructions Recorded clonidine HCl 1 tab PO BID #0 tab 10/07/20 sulfamethoxazole-trimethoprim 1 tab PO Q12H #28 tab 10/07/20 [Bactrim DS] DS: Summary Hospital Course Hospital Course: History of presenting illness Chief Complaint: abdominal pain This is a 35-year-old female with a past medical history of IV substance abuse, actively using with last use 24 hours prior to arrival to the emergency room, bipolar disorder with [place] [facility] [place], who presented to the emergency room on 10/04/2020 with complaints of abdominal pain. patient was treated for this in the emergency room. As part of her workup she had blood cultures drawn. She Was medically cleared and was awaiting a crisis evaluation for passing remarks for suicidal ideation, while awaiting crisis evaluation, her blood cultures which were drawn yesterday returned positive 1/2 bottles for Gram-positive cocci and Gram-negative rods. she had repeat lab work completed and underwent a CT scan of the abdomen and pelvis which showed diffuse constipation without any other acute findings. She was given a dose of IV Zosyn and vancomycin and admission was requested. When I went to interview the patient, she was laying in her bed asleep c omfortably with her blanket over her head. I was able to wake her up, however she was not interested in providing any history. As such history is mainly from the ED providers and chart review. Hospital course 35 yo F with a PMH of Bipolar disorder, active IVDU who presented to the ED with complaints of abdominal pain on 10/04/2020. She was medically stabilized and was awaiting crisis evaluation. However, her blood cultures resulted positive and so she was admitted for further management, patient was treated with IV vancomycin and IV Zosyn her final blood culture came back positive for MRSA There were no Gram-negative rods as per final report, patient was scheduled for echocardiogram however she decided to leave against medical advice, patient has been made aware of diagnosis of MRSA And concern for endocarditis, overwhelming sepsis and with continue to use of IV drugs, patient showed understanding, however she is adamant to leave she is awake alert seen earlier by care team , and she denied suicidal /homicidal ideation she never made any attempts to harm herself and has no thoughts or plan at this time, her boyfriend was present and he agreed with what she said 2 week course of Bactrim has been sent to [facility] she has been recommended to follow-up with primary care physician. Patient was tested for gonorrhea and chlamydia both studies are negative Trichomonas DNA is negative, patient was on Flagyl prior to admission since her partner was diagnosed to have trichomonas, recommend to finish course of flagyl. Polysubstance abuse/withdrawal Patient injects and snorts cocaine daily, she is on methadone 30 mg daily that has been continued, counseling done strongly recommend to abstain from illicit drug use patient was supposed to be seen by addiction team In regard to psychiatric history she has been continued on all of her home medication Time Spent with Patient Time attestation: Total time spent providing and/or coordinating discharge services: Discharge coordination time: Greater than 30 minutes Quality: Stroke Does the patient have a stroke diagnosis?: No Physical Exam Vital Signs: Vital Signs: Last Vital Signs Temp 97.7 F 10/07/20 08:00 Pulse 56 10/07/20 08:00 Resp 18 10/07/20 04:00 BP 126/79 10/07/20 08:00 Pulse Ox 97 10/07/20 08:00 Body Mass Index 22.3 General no acute distress Neck no JVD. CVS regular rate rhythm Respiratory lungs clear to auscultation, no respiratory distress, Gastrointestinal abdomen soft, nontender, bowel sounds audible Extremities no edema. No redness, no swelling noted on both feet Neuro nonfocal , moving all 4 extremity, speech clear. Skin multiple dried scabs lower extremity, no open wounds noted. DS: Data Data Completed and Pending Completed studies during hospitalization [Text1]: Procedures Detoxification Services for Substance Abuse Treatment (01/14/20) Labs on day of discharge: Laboratory Results - last 24 hr 10/05/20 10/07/20 14:08 03:04 Vancomycin Trough 5.6 L Gayatri species DNA Negative Gardnerella DNA Probe Negative Trichomonas DNA Probe Negative Preliminary micro results at discharge 10/06/20 06:25 Blood Culture - Preliminary Blood - Venous No growth after 24 hours. 10/06/20 06:21 Blood Culture - Preliminary Blood - Venous No growth after 24 hours. Discharge Plan Discharge Patient Disposition: Left Against Medical Advice Discharge Diagnosis: MRSA bacteremia Polysubstance abuse/withdrawal Referrals: Physician,Unknown [Primary Care Provider] - 1 Week Discharge Medications: New sulfamethoxazole-trimethoprim [Bactrim DS] 800-160 mg tablet 1 tab PO Q12H Qty: 28 RF: 0 Continued desogestrel-ethinyl estradiol [Apri] 0.15-0.03 mg tablet 1 tab PO DAILY RF: 0 quetiapine 300 mg tablet 1 tab PO BEDTIME RF: 0 gabapentin 400 mg capsule 1 cap PO TID RF: 0 metronidazole 500 mg tablet 1 tab PO Q12H RF: 0 quetiapine 100 mg tablet 1 tab PO DAILY RF: 0 famotidine 20 mg tablet 1 tab PO DAILY RF: 0 methadone [Methadone Intensol] 10 mg/mL Concentrate 30 mg PO DAILY RF: 0 Changed clonidine HCl 0.1 mg tablet 1 tab PO BID Qty: 0 RF: 0 Discontinued ibuprofen 800 mg tablet 1 tab PO Q8H RF: 0 methadone liquid 30 mg PO DAILY RF: 0 Discharge Orders: Discharge Order (Routine); Ordered 10/07/20 Ordered By: Deirdre Hernández Diet: advance to usual diet Activity on Discharge: As tolerated Care Plan Goals: Patient informed about suboptimal treatment for MRSA bacteremia, needs echocardiogram, addiction team consult pending, patient aware of suboptimal treatment is being discharged on by mouth Bactrim since MRSA resistant to doxy Health Concerns: Polysubstance abuse/MRSA bacteremia Plan of Treatment: Outpatient follow-up with PCP Assessment: As above Discharge Date/Time: 10/07/20 11:26
== END 2020-10-07 11:26 | disposition left against medical advice (07) | DRG 200 ==
LOC: HO.ED 10-05 15:20 → HO.EDOVER 10-05 15:54 → HO.S3 10-05 18:46
PROVIDERS: Physician Assistant Medical; Admitting Provider Family Medicine; Emergency Provider Emergency Medicine Emergency Medical Services; Visit Provider Hospitalist
DX: I38 Endocarditis, valve unspecified (principal); R78.81 Bacteremia; F11.20 Opioid dependence, uncomplicated; B95.62 Methicillin resistant Staphylococcus aureus infection as the cause of diseases classified elsewhere; F19.139 Other psychoactive substance abuse with withdrawal, unspecified; F43.10 Post-traumatic stress disorder, unspecified; F31.9 Bipolar disorder, unspecified; Z20.822 Contact with and (suspected) exposure to COVID-19; Z79.899 Other long term (current) drug therapy
CPT/HCPCS: 36415; 71045; 74177; 80053; 80202; 81003; 82077; 83605; 83690; 83735; 85025; 85610; 87040; 87077; 87147; 87186; 87205; 87480; 87491; 87510; 87591; 87635; 87660; 99285; J1200; J1650; J2060; J2543; J3370; Q9967

== ENCOUNTER 2020-10-14 12:17 | Inpatient (IN) | payer MEDICAID, SELFPAY ==
[2020-10-14 12:25] VITALS: BP 121/85; PULSE 106; RESP 19; TEMP 37.2; O2SAT 96; BMI 20.5
--- NOTE | 2020-10-14 13:13 | ED_ITS ---
HPI - General Adult General Chief complaint: General Medical Stated complaint: Infection? Time Seen by Provider: 10/14/20 12:19 History of Present Illness HPI narrative: Patient complains of feeling feverish with some intermittent abdominal cramping over the past week She left the hospital AMA about 1 week ago where she was being evaluated for sepsis, possible endocarditis and had been admitted on IV antibiotics and had left against advice as she said she was dope sick, she is a daily heroin user She did not have an echocardiogram done At this point in time she has no abdominal pain no chest pain no shortness of breath no dizziness no fainting She also complains that she has been sexually active with her boyfriend who she says has gonorrhea and Trichomonas She was discharged with a prescription for Bactrim but said she has not filled it She also said she had an about 10 days ago, denies any bleeding, no abdomen or pelvic pain now Related Data Home Medications Medication Instructions Recorded Confirmed desogestrel-ethinyl estradiol 1 tab PO DAILY 10/04/20 10/04/20 [Apri] famotidine 1 tab PO DAILY 10/04/20 10/04/20 gabapentin 1 cap PO TID 10/04/20 10/04/20 metronidazole 1 tab PO Q12H 10/04/20 10/04/20 quetiapine 1 tab PO BEDTIME 10/04/20 10/04/20 quetiapine 1 tab PO DAILY 10/04/20 10/04/20 methadone [Methadone Intensol] 30 mg PO DAILY 10/06/20 10/06/20 Previous Rx's Medication Instructions Recorded clonidine HCl 1 tab PO BID #0 tab 10/07/20 sulfamethoxazole-trimethoprim 1 tab PO Q12H #28 tab 10/07/20 [Bactrim DS] Allergies Allergy/AdvReac Type Severity Reaction Status Date / Time No Known Allergies Allergy Verified 10/14/20 12:25 [No Known Allergies*] Review of Systems Review of Systems: Positive for fever, intermittent crampy abdominal pain negatives are no dizziness no weakness no fainting no feeling faint no headache no stiff neck no neck pain no chest pain no palpitations no shortness of breath no nausea vomiting or diarrhea no burning with urination or frequency of urination no weakness no loss of sensation no skin rash Yes all other systems are reviewed and are negative PMFSH Past Medical History Attestation statement: The following information was validated with the patient. PMF Narrative: Patient is daily IV opiate user, she says she did heroin and cocaine this morning Source: nursing notes reviewed Medical History Acute anxiety Anxiety Depression Depression Drug-induced psychotic disorder History of drug dependence/abuse Opiate withdrawal PTSD (post-traumatic stress disorder) Social History Social History Household Members: Family Household Members Other:: grandmother Housing: Unknown / Unable to assess Do you presently have visiting nurse or other home services: No Unable to assess alcohol history related to: Refusing to respond 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: current 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 frequency: a few times a week Alcohol type: beer, wine and hard liquor Patient Tobacco Use Status: Tobacco use Unknown Cigarette Packs Per Day: 1.5 Cigarettes Per Day: 30.0 Years Smoked: 23 Second Hand Smoke Exposure: Yes Substance Use Type: Heroin Last Used Substance: Hours (ago) Advance Directives: No Advance Directives Information Provided: No Patient : No service: No Current occupational status: unemployed Physical Exam Vital Signs: Vital Signs: Last Vital Signs Temp 98.4 F 10/14/20 15:00 Pulse 106 H 10/14/20 12:25 Resp 19 10/14/20 12:25 BP 121/85 10/14/20 12:25 Pulse Ox 96 10/14/20 12:25 Body Mass Index 20.5 General appearance is very anxious appearing, no acute distress, A&O x3 The head is normocephalic atraumatic pupils are reactive to light, extraocular motions are intact The pharynx is clear without redness swelling or exudate Neck is supple The chest is clear to auscultation bilateral with equal symmetric breath sounds no adventitious sounds Heart no murmur was auscultated The abdomen was soft nontender no rebound no guarding Extremities full range of motion x4 Skin there are multiple excoriated lesions on her feet but no surrounding erythema no discharge no fluctuance no evidence of abscess Neuro patient is A&O x3, speech both expression and comprehension are normal, motor is 5/5 x4, gait and balance are normal Course Course Course Narrative: Patient is afebrile at this moment in time, white count is 11 Total protein and albumin are mildly elevated compared to last visit at 9.3 protein and albumin 5.1 test is positive but patient is less than 2 weeks post , she has no abdominal tenderness no pain in her abdomen now no vaginal bleeding Patient is very anxious and was given Ativan with some relief and is very concerned about going into withdrawals from opiates so I discussed with our attending physician whether we should restart her method on but as she has not taken it for at least 10 days we did not restart the method on and gave her some oxycodone to word off withdrawal symptoms She wants to be admitted as concerned that she will get much sicker from her blood infection and she was admitted to the medical service after discussion with hospitalist Medical Decision Making Lab Data Lab results reviewed: Yes I reviewed the patient's lab results. Result diagrams: 10/14/20 14:08 10/14/20 14:08 Labs: Lab Results 10/14/20 10/14/20 10/14/20 Range/Units 13:23 13:23 13:23 WBC (4.8-10.8) X10*3/uL RBC (4.20-5.50) X10*6/uL Hgb (12.0-16.0) g/dl Hct (37-47) % MCV (80-98) fL MCH (27.0-33.0) pg MCHC (31.0-35.0) g/dl RDW (11.0-16.0) % Plt Count (160-400) X10*3/uL MPV (9.4-12.3) fL Immature Gran % (Auto) (0.0-0.4) % Neut % (Auto) (45-73) % Lymph % (Auto) (20-40) % [place] % (Auto) (2-11) % Eos % (Auto) (0-4) % Baso % (Auto) (0-2) % Lymph # (Auto) (1.2-4.9) X10*3/uL [place] # (Auto) (0.1-1.2) X10*3/uL Eos # (Auto) (0.0-0.4) X10*3/uL Baso # (Auto) (0.0-0.2) X10*3/uL Abs Immat Gran (auto) (0.00-0.03) X10*3/uL Absolute Neuts (auto) (2.0-8.3) X10*3/uL Absolute Nucleated RBC (0.0-0.012) X10*3/uL Nucleated RBC % (auto) (0.0-0.2) /100WBC Sodium (135-145) mmol/L Potassium (3.3-5.1) mmol/L Chloride (96-108) mmol/L Carbon Dioxide (22-29) mmol/L Anion Gap (12-20) BUN (9-16) mg/dL Creatinine (0.5-1.4) mg/dL Estim Creat Clear Calc Estimated GFR Random Glucose (60-115) mg/dL Lactic Acid (0.5-2.0) mmol/L Calcium (8.4-10.2) mg/dL Total Bilirubin (0.0-1.0) mg/dL Direct Bilirubin (0.0-0.5) mg/dL AST (5-31) U/L ALT (0-31) U/L Alkaline Phosphatase (39-117) U/L Total Protein (6.5-8.0) g/dL Albumin (3.5-5.0) g/dL Urine Color DARK YELLOW Urine Appearance HAZY Urine pH 6.0 (5.0-8.0) Ur Specific [place] >= 1.030 H (1.005-1.025) Urine Protein 1+ H (NEG-TRACE) MG/DL Urine Glucose (UA) NEG (NEG) MG/DL Urine Ketones 5 (NEG) MG/DL Urine Blood NEG (NEG) Urine Nitrite NEG (NEG) Ur Leukocyte Esterase NEG (NEG) Urine RBC 0-2 (0) /HPF Urine WBC 1-4 (0-4) /HPF Ur Squamous Epith Cells 2+ /LPF Calcium Oxalate Crystal 1+ /LPF Urine Bacteria NONE /LPF Urine Mucus 2+ /LPF Urine Test POSITIVE H (NEGATIVE) Urine Opiates Screen POSITIVE H (Not Detect) Ur Barbiturates Screen Not Detected (Not Detect) Ur Phencyclidine Scrn Not Detected (Not Detect) Ur Amphetamines Screen Not Detected (Not Detect) U Benzodiazepines Scrn Not Detected (Not Detect) Urine Cocaine Screen POSITIVE H (Not Detect) U Marijuana (THC) Screen Not Detected (Not Detect) 10/14/20 10/14/20 10/14/20 Range/Units 14:08 14:08 14:08 WBC 11.0 H (4.8-10.8) X10*3/uL RBC 4.56 (4.20-5.50) X10*6/uL Hgb 12.3 (12.0-16.0) g/dl Hct 39.9 D (37-47) % MCV 87.5 (80-98) fL MCH 27.0 (27.0-33.0) pg MCHC 30.8 L (31.0-35.0) g/dl RDW 15.9 (11.0-16.0) % Plt Count 388 D (160-400) X10*3/uL MPV 9.5 (9.4-12.3) fL Immature Gran % (Auto) 0.4 (0.0-0.4) % Neut % (Auto) 82.8 H (45-73) % Lymph % (Auto) 12.1 L (20-40) % [place] % (Auto) 3.8 (2-11) % Eos % (Auto) 0.6 (0-4) % Baso % (Auto) 0.3 (0-2) % Lymph # (Auto) 1.3 (1.2-4.9) X10*3/uL [place] # (Auto) 0.4 (0.1-1.2) X10*3/uL Eos # (Auto) 0.1 (0.0-0.4) X10*3/uL Baso # (Auto) 0.0 (0.0-0.2) X10*3/uL Abs Immat Gran (auto) 0.04 H (0.00-0.03) X10*3/uL Absolute Neuts (auto) 9.1 H (2.0-8.3) X10*3/uL Absolute Nucleated RBC 0.000 (0.0-0.012) X10*3/uL Nucleated RBC % (auto) 0.0 (0.0-0.2) /100WBC Sodium 140 (135-145) mmol/L Potassium 3.8 (3.3-5.1) mmol/L Chloride 103 (96-108) mmol/L Carbon Dioxide 26 (22-29) mmol/L Anion Gap 15 (12-20) BUN 12 (9-16) mg/dL Creatinine 1.01 (0.5-1.4) mg/dL Estim Creat Clear Calc 67.2 Estimated GFR > 60 Random Glucose 98 (60-115) mg/dL Lactic Acid 0.8 (0.5-2.0) mmol/L Calcium 10.7 H D (8.4-10.2) mg/dL Total Bilirubin 0.5 (0.0-1.0) mg/dL Direct Bilirubin 0.2 (0.0-0.5) mg/dL AST 30 (5-31) U/L ALT 17 (0-31) U/L Alkaline Phosphatase 73 D (39-117) U/L Total Protein 9.3 H D (6.5-8.0) g/dL Albumin 5.1 H D (3.5-5.0) g/dL Urine Color Urine Appearance Urine pH (5.0-8.0) Ur Specific Topping (1.005-1.025) Urine Protein (NEG-TRACE) MG/DL Urine Glucose (UA) (NEG) MG/DL Urine Ketones (NEG) MG/DL Urine Blood (NEG) Urine Nitrite (NEG) Ur Leukocyte Esterase (NEG) Urine RBC (0) /HPF Urine WBC (0-4) /HPF Ur Squamous Epith Cells /LPF Calcium Oxalate Crystal /LPF Urine Bacteria /LPF Urine Mucus /LPF Urine Test (NEGATIVE) Urine Opiates Screen (Not Detect) Ur Barbiturates Screen (Not Detect) Ur Phencyclidine Scrn (Not Detect) Ur Amphetamines Screen (Not Detect) U Benzodiazepines Scrn (Not Detect) Urine Cocaine Screen (Not Detect) U Marijuana (THC) Screen (Not Detect)
[2020-10-14 13:30] VITALS: TEMP 36.9
[2020-10-14 13:31] LABS: Glucose Urine UA NEG (NEG); Leukocyte Esterase Urine NEG (NEG); Nitrite Urine NEG (NEG); Specific Gravity - Urine >= 1.030 (1.005-1.025); Urine Blood NEG (NEG); Urine Ketones 5 MG/DL (NEG); Urine Protein 1+ MG/DL (NEG-TRACE)
[2020-10-14 13:32] LABS: Appearance Urine HAZY; Color Urine DARK YELLOW
[2020-10-14 13:33] LABS: UPreg QC Valid YES; Urine Pregnancy POSITIVE (NEGATIVE)
[2020-10-14 13:48] LABS: Calcium Oxalate Crystals Urine 1+ /LPF; Mucus Urine 2+ /LPF; RBC Urine 0-2 /HPF (0); Squamous Epithelial Cell Urine 2+ /LPF
[2020-10-14 13:59] LABS: Amphetamine Screen Urine Not Detected (Not Detect); Barbiturates, Urine Not Detected (Not Detect); Benzodiazepines Screen Urine Not Detected (Not Detect); Cannabinoid Screen Urine Not Detected (Not Detect); Cocaine Screen Urine POSITIVE (Not Detect); Opiate Screen Urine POSITIVE (Not Detect); Phencyclidine Screen Urine Not Detected (Not Detect)
[2020-10-14 14:17] LABS: Basophils Percent Auto 0.3 % (0-2); Eosinophils Absolute Auto 0.1 X10*3/uL (0.0-0.4); Eosinophils Percent Auto 0.6 % (0-4); Hematocrit 39.9 % (37-47); Hemoglobin 12.3 g/dl (12.0-16.0); Imm Gran Abs Auto 0.04 X10*3/uL (0.00-0.03); Imm Gran Pct Auto 0.4 % (0.0-0.4); Lymphocytes Absolute Auto 1.3 X10*3/uL (1.2-4.9); Lymphocytes Percent Auto 12.1 % (20-40); MANUAL DIFF FLAG NO; Mean Corpuscular HGB Conc 30.8 g/dl (31.0-35.0); Mean Corpuscular Volume 87.5 fL (80-98); Mean Platelet Volume 9.5 fL (9.4-12.3); Monocytes Absolute Auto 0.4 X10*3/uL (0.1-1.2); Monocytes Percent Auto 3.8 % (2-11); Neutrophils Absolute Auto 9.1 X10*3/uL (2.0-8.3); Neutrophils Percent Auto 82.8 % (45-73); Platelet Count 388 X10*3/uL (160-400); Red Blood Count 4.56 X10*6/uL (4.20-5.50); Red Cell Distribution Width 15.9 % (11.0-16.0)
[2020-10-14 14:43] LABS: Lactic Acid 0.8 mmol/L (0.5-2.0)
[2020-10-14] MEDS: Acetaminophen 325 MG TABLET 650 MG PO (14:43)
[2020-10-14] MEDS: LORazepam 1 MG TABLET PO ×2 (14:44→16:05)
[2020-10-14 14:53] LABS: Alanine Aminotransferase 17 U/L (0-31); Albumin Level 5.1 g/dL (3.5-5.0); Alkaline Phosphatase 73 U/L (39-117); Anion Gap 15 (12-20); Aspartate Amino Transferase 30 U/L (5-31); Bilirubin Direct 0.2 mg/dL (0.0-0.5); Bilirubin Total 0.5 mg/dL (0.0-1.0); Blood Urea Nitrogen 12 mg/dL (9-16); Calcium 10.7 mg/dL (8.4-10.2); Carbon Dioxide 26 mmol/L (22-29); Chloride 103 mmol/L (96-108); Creatinine Clr Calc Pharmacy 67.2; Estimated Glomerular Filt Rate > 60; Glucose Random 98 mg/dL (60-115); Potassium 3.8 mmol/L (3.3-5.1); Sodium 140 mmol/L (135-145); Total Protein 9.3 g/dL (6.5-8.0)
[2020-10-14 15:00] VITALS: TEMP 36.9
--- NOTE | 2020-10-14 15:37 | PM.IMHP ---
History of Present Illness Date of Service: 10/14/20 Chief Complaint: Fever 35 year-old woman with bipolar disorder and polysubstance abuse [including cocaine and opioids] disorder who was admitted to [facility] 10/05/20 for positive blood cultures while awaiting psychiatric crisis evaluation for suicidal ideation. She ended up growing MRSA in 2/2 cultures and was treated with IV vancomycin. However, she signed out against medical advice on 10/07/20. Repeat BCx on 10/06/20 were negative. The patient left before echocardiogram could be done. Reference is made to the H+P by Dr Mclean from 10/05/20 as well as the discharge summary by Dr Hernández from 10/07/20. She was given a prescription for 2 weeks of SMX/TMP. She was also treated with metronidazole for trichomoniasis exposure, though her NAAT test was negative. She lost both prescriptions after the 1st day. She returned to the ED complaining of subjective fever, chills, and vague abdominal cramping for the past 7 days. No chest pain or dyspnea. Continues to use cocaine and heroin daily; last injected 1 bag of heroin this morning. She reports feeling dope sick and is extremely anxious and restless. She returned to the hospital to complete treatment for the bacteremia. She is also on methadone 30 mg daily, from [facility] in [place]. She denies SI. On 09/28/20, she had a 1st trimester D+C at [facility] and was treated with ceftriaxone and prescribed metronidazole them for exposure to both trichomoniasis and gonorrhea. However, she did not complete that course of metronidazole and has had unprotected intercourse with her male partner since signing out AMA from her 10/07/20. She reports vaginal discomfort and discharge. In the ED, blood cultures were drawn and she was given a dose of IV vancomycin and IV ceftriaxone, along with PO oxycodone and lorazepam. Review of Systems Review of Systems: Yes all other systems are reviewed and are negative PMFSH Medical History Acute anxiety Anxiety Atypical bipolar disorder Depression Depression Drug-induced psychotic disorder History of drug dependence/abuse Opiate withdrawal PTSD (post-traumatic stress disorder) Social History Household Members: Family Household Members Other:: grandmother Housing: Unknown / Unable to assess Do you presently have visiting nurse or other home services: No Unable to assess alcohol history related to: Refusing to respond 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: current 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 frequency: a few times a week Alcohol type: beer, wine and hard liquor Patient Tobacco Use Status: Tobacco use Unknown Cigarette Packs Per Day: 1.5 Cigarettes Per Day: 30.0 Years Smoked: 23 Second Hand Smoke Exposure: Yes Substance Use Type: Heroin Advance Directives: No Advance Directives Information Provided: No Patient : No service: No Current occupational status: unemployed Meds Allergies Allergy/AdvReac Type Severity Reaction Status Date / Time No Known Allergies Allergy Verified 10/14/20 12:25 [No Known Allergies*] Active Medications: Current Medications Generic Name Dose Route Start Last Admin Trade Name Freq PRN Reason Stop Dose Admin Vancomycin HCl 1,000 mg/ 270 mls @ 270 mls/hr 10/14/20 15:21 Sodium Chloride IV 10/14/20 16:20 ONCE ONE Ceftriaxone Sodium 2 gm/ 50 mls @ 100 mls/hr 10/14/20 15:21 Sodium Chloride IV 10/14/20 15:50 ONCE ONE Pharmacy Consult 1 each 10/14/20 15:34 Consult Rx Perform Med Rec MISCELLANE ONCE PRN Consult order Home Medications Medication Instructions Recorded Confirmed Last Taken Type desogestrel-ethinyl estradiol 1 tab PO DAILY 10/04/20 10/04/20 Unknown History [Apri] famotidine 1 tab PO DAILY 10/04/20 10/04/20 Unknown History gabapentin 1 cap PO TID 10/04/20 10/04/20 Unknown History metronidazole 1 tab PO Q12H 10/04/20 10/04/20 Unknown History quetiapine 1 tab PO BEDTIME 10/04/20 10/04/20 Unknown History quetiapine 1 tab PO DAILY 10/04/20 10/04/20 Unknown History methadone [Methadone Intensol] 30 mg PO DAILY 10/06/20 10/06/20 Unknown History Physical Exam Vital Signs and Narrative: Vital Signs: Last Vital Signs Temp 98.4 F 10/14/20 13:30 Pulse 106 H 10/14/20 12:25 Resp 19 10/14/20 12:25 BP 121/85 10/14/20 12:25 Pulse Ox 96 10/14/20 12:25 Body Mass Index 20.5 Gen: anxious, disheveled HEENT: sclera anicteric, moist mucus membranes Neck: supple Lungs: clear to auscultation bilaterally Heart: tachycardic, no murmurs Abd: soft, non-tender, non-distended Ext: no edema Skin: warm/well-perfused, multiple needle track nieves Neuro: alert and oriented x3, no focal findings Psych: extremely labile affect, very anxious Results Labs CBC and Chem 7: 10/14/20 14:08 10/14/20 14:08 Labs: Laboratory Results - last 24 hr 10/14/20 10/14/20 10/14/20 13:23 13:23 13:23 MCV MCH MCHC RDW Plt Count MPV Immature Gran % (Auto) Neut % (Auto) Lymph % (Auto) [place] % (Auto) Eos % (Auto) Baso % (Auto) Lymph # (Auto) [place] # (Auto) Eos # (Auto) Baso # (Auto) Abs Immat Gran (auto) Absolute Neuts (auto) Absolute Nucleated RBC Nucleated RBC % (auto) Anion Gap Estim Creat Clear Calc Estimated GFR Random Glucose Lactic Acid Calcium Total Bilirubin Direct Bilirubin AST ALT Alkaline Phosphatase Total Protein Albumin Urine Color DARK YELLOW Urine Appearance HAZY Urine pH 6.0 Ur Specific [place] >= 1.030 H Urine Protein 1+ H Urine Glucose (UA) NEG Urine Ketones 5 Urine Blood NEG Urine Nitrite NEG Ur Leukocyte Esterase NEG Urine RBC 0-2 Urine WBC 1-4 Ur Squamous Epith Cells 2+ Calcium Oxalate Crystal 1+ Urine Bacteria NONE Urine Mucus 2+ Urine Test POSITIVE H Urine Opiates Screen POSITIVE H Ur Barbiturates Screen Not Detected Ur Phencyclidine Scrn Not Detected Ur Amphetamines Screen Not Detected U Benzodiazepines Scrn Not Detected Urine Cocaine Screen POSITIVE H U Marijuana (THC) Screen Not Detected 10/14/20 10/14/20 10/14/20 14:08 14:08 14:08 MCV 87.5 MCH 27.0 MCHC 30.8 L RDW 15.9 Plt Count 388 D MPV 9.5 Immature Gran % (Auto) 0.4 Neut % (Auto) 82.8 H Lymph % (Auto) 12.1 L [place] % (Auto) 3.8 Eos % (Auto) 0.6 Baso % (Auto) 0.3 Lymph # (Auto) 1.3 [place] # (Auto) 0.4 Eos # (Auto) 0.1 Baso # (Auto) 0.0 Abs Immat Gran (auto) 0.04 H Absolute Neuts (auto) 9.1 H Absolute Nucleated RBC 0.000 Nucleated RBC % (auto) 0.0 Anion Gap 15 Estim Creat Clear Calc 67.2 Estimated GFR > 60 Random Glucose 98 Lactic Acid 0.8 Calcium 10.7 H D Total Bilirubin 0.5 Direct Bilirubin 0.2 AST 30 ALT 17 Alkaline Phosphatase 73 D Total Protein 9.3 H D Albumin 5.1 H D Urine Color Urine Appearance Urine pH Ur Specific [place] Urine Protein Urine Glucose (UA) Urine Ketones Urine Blood Urine Nitrite Ur Leukocyte Esterase Urine RBC Urine WBC Ur Squamous Epith Cells Calcium Oxalate Crystal Urine Bacteria Urine Mucus Urine Test Urine Opiates Screen Ur Barbiturates Screen Ur Phencyclidine Scrn Ur Amphetamines Screen U Benzodiazepines Scrn Urine Cocaine Screen U Marijuana (THC) Screen Assessment and Plan (1) Positive blood culture: Status: Acute 35yo F with bipolar disorder and opioid/cocaine/tobacco use disorder, recent 1st trimester D+C on 09/28/20, recently diagnosed with MRSA bacteremia from BCx on 10/04/20 and admitted 10/05/20 but signed out AMA 10/07/20, returning to complete treatment. # MRSA bacteremia - admit to M/S, restart IV vancomycin with pharmacist consult, monitor renal function, follow BCx, obtain TTE in am, re-consult ID # STI re-exposure (trichomonas, gonorrhea) - got ceftriaxone 2g IV which will cover gonorrhea; will give 1g azithromycin to cover possible chlamydia co-infection and treat for trichomoniasis with metronidazole 500mg PO BID x7d. counseling on condom use. screen for other STIs + hepatitis: RPR, HIV, HBV, HCV # positive hCG - likely residual from recent , s/p D+C 09/28/20, but out of an abundance of caution will check quant hCG 48h apart x2. pt on OCP for contraception but unclear if taking # polysubstance abuse disorder - consult Addiction Medicine - methadone, prn oxycodone - prn lorazepam - nicotine patch # bipolar disorder - quetiapine + gabapentin # VTE ppx - LMWH # code - full Quality Stroke Does the patient have a stroke diagnosis?: No VTE Prior VTE?: No VTE Risk Level:: Medical - moderate - high VTE Device Contraindication: N/A - Device Ordered VTE Drug Contraindication: N/A - Med Ordered
[2020-10-14] MEDS: oxyCODONE HCl Immed Release 5 MG TABLET 10 MG PO (15:55)
[2020-10-14] MEDS: cefTRIAXone sodium 2 GM in 0.9 % Sodium Chloride 50 ML IV (16:05)
--- NOTE | 2020-10-14 16:35 | PC.NURSE ---
Patient in room talking loudly on the phone, yelling at time to her boyfriend begging him to come to ER and visit. technical publications writer walked in room to check encourage patient to be a little quieter. Medicare Nurse found patiente to be pacing in room. Pt hands nurse IV tubing stating she needs to be hooked back up. No antibiotic left in bag. Pt states it leaked all over the floor.
--- NOTE | 2020-10-14 17:05 | MHC.RECOVSUP ---
Recovery Support note: Patient is a 35 year old [place] speaking female who presented to [facility] ED due to suspected infection. Patient is known to this chief underwriter from a previous medical admission. This chief underwriter met with patient to discuss her substance use and treatment options. Patient reports using heroin and cocaine and states she is feeling dope sick. Patient reports some relief from the medications provided. Patient is requesting methadone at this time. Patient reports the last time she went to her clinic ([facility]) was prior to her last medical admission. Patient is observed pacing in the room and picking at her face. Patient reports experiencing anxiety. Encouraged patient to reach out to staff if there is anything she needs to make her more comfortable. Discussed case with Flower Donohue NP.
[2020-10-14] MEDS: vancomycin HCL 1,000 MG in 0.9 % Sodium Chloride 250 ML 270 MG IV (17:08)
[2020-10-14] MEDS: Azithromycin 500 MG TABLET 1000 MG PO (17:10)
[2020-10-14] MEDS: Nicotine 21 MG PATCH.TD24 TRANSDERMA (17:11)
[2020-10-14] MEDS: Enoxaparin Sodium 40 MG/0.4 ML SYRINGE SUBCUT (17:14)
[2020-10-14 17:30] VITALS: PULSE 106; RESP 20; O2SAT 97
--- NOTE | 2020-10-14 17:35 | PC.NURSE ---
Boyfriend is at bedside talking with patient and trying to encourage patient to stay at the hospital for treatment of infections as well as getting treatment for her drug addiction problem. Pt has taken hospital gown off and put personal clothing back on. Unable to obtain a blood pressure reading due to patients constant fidgeting
--- NOTE | 2020-10-14 18:15 | PC.NURSE ---
Patient has disconnected self from IV vancomycin and is quickly walking to the exit. Pt stopped by staff due to pt having a peripheral iv. Pt has removed peripheral iv from left ac. pt refuses to stay for treatment.
[2020-10-14 19:02] LABS: HCG Quantitative 46 mIU/mL
--- NOTE | 2020-10-15 08:35 | MHC.CM.PN ---
Patient left AMA prior to being seen by case management.
== END 2020-10-15 14:45 | disposition left against medical advice (07) | DRG 564 ==
LOC: HO.ED 13:08 → HO.EDOVER 16:19 → HO.S3 19:26 → HO.EDOVER 10-15 14:44
PROVIDERS: Physician Assistant Medical; Admitting Provider Family Medicine; Emergency Provider Emergency Medicine; Visit Provider Family Medicine
DX: O04.5 Genital tract and pelvic infection following (induced) termination of pregnancy (principal); R78.81 Bacteremia; F11.20 Opioid dependence, uncomplicated; F31.9 Bipolar disorder, unspecified; B95.62 Methicillin resistant Staphylococcus aureus infection as the cause of diseases classified elsewhere; Z72.51 High risk heterosexual behavior; Z79.899 Other long term (current) drug therapy
CPT/HCPCS: 36415; 80048; 80076; 80307; 81001; 81025; 83605; 84702; 85025; 87040; 99284; J0696; J1650; J3370

== ENCOUNTER 2020-10-16 19:38 | Emergency (ER) | payer MEDICAID, SELFPAY | END 2020-10-16 23:34 | disposition left against medical advice (07) | PROVIDERS: Emergency Provider Emergency Medicine | DX: F14.10 Cocaine abuse, uncomplicated (principal); F11.14 Opioid abuse with opioid-induced mood disorder ==

== ENCOUNTER 2020-10-17 00:32 | Emergency (ER) | payer MEDICAID, SELFPAY ==
[2020-10-17 01:27] VITALS: BMI 17.2
[2020-10-17 02:00] VITALS: BP 128/74; PULSE 75; RESP 15; TEMP 37; O2SAT 99
[2020-10-17 04:00] VITALS: RESP 14
[2020-10-17 06:00] VITALS: RESP 14
--- NOTE | 2020-10-17 06:14 | ED.SKABFB ---
HPI - Skin/Abscess/Foreign Bdy General Chief complaint: Skin/Abscess/Foreign Body Stated complaint: ?Infection Time Seen by Provider: 10/17/20 01:42 Source: patient Mode of arrival: ambulatory History of Present Illness HPI narrative: 35-year-old female with known history IVDA pre presents with endorsing that she signed out AMA a few days ago when she was supposed to undergo treatment for MRSA bacteremia and now feels ?terrible? and is demanding treatment as well stating that she is ?dope sick?. On review of prior documentation patient was noted to be bacteremic, however patient signed out AMA on 10/07 and was provided with 2 weeks of Bactrim prior to getting her echocardiogram. The patient then re-presented on 10/14 with similar complaints of not feeling well and had not picked up her prescription for Bactrim, she was going to be admitted but again left against medical advice. Related Data Home Medications Medication Instructions Recorded Confirmed desogestrel-ethinyl estradiol 1 tab PO DAILY 10/04/20 10/04/20 [Apri] famotidine 1 tab PO DAILY 10/04/20 10/04/20 gabapentin 1 cap PO TID 10/04/20 10/04/20 metronidazole 1 tab PO Q12H 10/04/20 10/04/20 quetiapine 1 tab PO BEDTIME 10/04/20 10/04/20 quetiapine 1 tab PO DAILY 10/04/20 10/04/20 methadone [Methadone Intensol] 30 mg PO DAILY 10/06/20 10/06/20 Previous Rx's Medication Instructions Recorded clonidine HCl 1 tab PO BID #0 tab 10/07/20 sulfamethoxazole-trimethoprim 1 tab PO Q12H #28 tab 10/07/20 [Bactrim DS] Allergies Allergy/AdvReac Type Severity Reaction Status Date / Time No Known Allergies Allergy Verified 10/14/20 12:25 [No Known Allergies*] Review of Systems Review of Systems: Pertinent positives and negatives as stated in HPI 10 point review of systems is otherwise negative. PMFSH Past Medical History Source: nursing notes reviewed Medical History Acute anxiety Anxiety Atypical bipolar disorder Depression Depression Drug-induced psychotic disorder History of drug dependence/abuse Opiate withdrawal PTSD (post-traumatic stress disorder) Social History Social History Household Members: Family Household Members Other:: grandmother Housing: Unknown / Unable to assess Do you presently have visiting nurse or other home services: No Unable to assess alcohol history related to: Refusing to respond 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: current 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 frequency: a few times a week Alcohol type: beer, wine and hard liquor Patient Tobacco Use Status: Tobacco use Unknown Cigarette Packs Per Day: 1.5 Cigarettes Per Day: 30.0 Years Smoked: 23 Second Hand Smoke Exposure: Yes Substance Use Type: Heroin Advance Directives: No Advance Directives Information Provided: No Patient : No service: No Current occupational status: unemployed Physical Exam Vital Signs: Vital Signs: Last Vital Signs Temp 98.6 F 10/17/20 02:00 Pulse 75 10/17/20 02:00 Resp 14 10/17/20 06:00 BP 128/74 10/17/20 02:00 Pulse Ox 99 10/17/20 02:00 Body Mass Index 17.2 VITAL SIGNS: Reviewed. GENERAL: Well developed, well nourished, resting in gurney. HEAD: Normocephalic/atraumatic EYES: PERRLA, EOMI EARS: Ext canals without abnormality NOSE: Nares patent bilateral OROPHARYNX: no oral lesions noted, posterior pharynx clear LUNGS: Normal breath sounds. No adventitious sounds or accessory muscle use. SpO2<99> CARDIOVASCULAR: Regular rate and rhythm without noted murmurs ABDOMEN: Soft, non-tender, non-distended with bowel sounds. SKIN: Inspection of the skin reveals no rashes, significant track nieves on bilateral upper extremities without overt abscesses noted NEUROLOGIC: Alert and oriented x 4. Strength and sensation to light touch were grossly intact x 4. Course Course Course Narrative: 35-year-old female with history and clinical presentation consistent with MRSA bacteremia, several attempts have been made to obtain access to get lab work and administer antibiotics however patient becomes verbally abusive toward staff with shouting and yelling in using poor language. Signed out to Dr Sharpe: Needs labs and admission. Discharge Plan Discharge Clinical Impression: MRSA bacteremia Prescriptions: No Action desogestrel-ethinyl estradiol [Apri] 0.15-0.03 mg tablet 1 tab PO DAILY RF: 0 quetiapine 300 mg tablet 1 tab PO BEDTIME RF: 0 gabapentin 400 mg capsule 1 cap PO TID RF: 0 metronidazole 500 mg tablet 1 tab PO Q12H RF: 0 quetiapine 100 mg tablet 1 tab PO DAILY RF: 0 famotidine 20 mg tablet 1 tab PO DAILY RF: 0 methadone [Methadone Intensol] 10 mg/mL Concentrate 30 mg PO DAILY RF: 0 sulfamethoxazole-trimethoprim [Bactrim DS] 800-160 mg tablet 1 tab PO Q12H Qty: 28 RF: 0 clonidine HCl 0.1 mg tablet 1 tab PO BID Qty: 0 RF: 0
--- NOTE | 2020-10-17 06:51 | PC.NURSE ---
this RN assumed care of patient at approximately 0645 and the patient had blood work, IV and blood cultures in place to be drawn. This RN went over to introduce self and attempt to draw blood work and place and IV. Patient screaming at this RN, swearing and calling this RN innapropriate words/terms. Once again this RN told the patient the plan of care and attempted to place an IV and draw blood work. Patient adamantly refusing and continues to swear and roll around in the bed. Provider made aware.
--- NOTE | 2020-10-17 07:29 | PC.NURSE ---
at bedside attempting to place an IV and draw blood work from the patient. Patient verbally abusive to staff and had aggressive demeanor - swearing and yelling. Both Dr. Aguero and Dr. Sharpe at the bedside explaining to patient the need for IV access and blood work in order to adequately treat the patient. Patient non-cooperative and screaming and verbally abusive. Security at bedside, IV attempt failed. Patient refusing to cooperate with treatment.
== END 2020-10-17 08:29 | disposition left against medical advice (07) ==
PROVIDERS: Emergency Provider Emergency Medicine
DX: A49.02 Methicillin resistant Staphylococcus aureus infection, unspecified site (principal); F11.20 Opioid dependence, uncomplicated
CPT/HCPCS: 99284

== ENCOUNTER 2021-11-25 02:30 | Emergency (ER) | payer MEDICAID, SELFPAY ==
[2021-11-25 02:34] VITALS: BP 142/92; PULSE 98; RESP 19; TEMP 37.2; O2SAT 97; BMI 24.0
[2021-11-25 02:57] VITALS: BP 139/96; PULSE 114; RESP 18; TEMP 36.6; O2SAT 97
--- NOTE | 2021-11-25 03:08 | ECG_ITS ---
Test Reason : cp Blood Pressure : / mmHG Vent. Rate : 087 BPM Atrial Rate : 087 BPM P-R Int : 132 ms QRS Dur : 090 ms QT Int : 412 ms P-R-T Axes : 044 -27 013 degrees QTc Int : 495 ms Poor data quality, interpretation may be adversely affected Normal sinus rhythm RSR' or QR pattern in V1 suggests right ventricular conduction delay Nonspecific T wave abnormality Abnormal ECG When compared with ECG of 17-JAN-2020 10:34, T wave inversion now evident in Anterior leads Referred By: Delicia Ulloa Electronically Signed By:
--- NOTE | 2021-11-25 03:12 | ED.GENADULT ---
HPI - General Adult General Chief complaint: ETOH/Substance Use Stated complaint: smoked weed, doesnt feel normal Time Seen by Provider: 11/25/21 03:08 Source: patient Mode of arrival: ambulatory Limitations: no limitations History of Present Illness HPI narrative: Patient comes to the emergency room complaining of feeling weird and anxious. Patient states that she smoked marijuana earlier today and should drop cocaine in her neck. Patient states that she feels like ?she is not there?, states that she feels really weird. Denies chest pain, no shortness of breath. Patient concerned that she may have an STD. Patient does not have any dysuria, vaginal discharge. But states that she was informed by her sexual partner that he tested positive for STDs. Related Data Home Medications Medication Instructions Recorded Confirmed desogestrel 0.15 mg-ethinyl 1 tab PO DAILY 10/04/20 10/04/20 estradiol 0.03 mg tablet (Apri) famotidine 20 mg tablet 1 tab PO DAILY 10/04/20 10/04/20 gabapentin 400 mg capsule 1 cap PO TID 10/04/20 10/04/20 metronidazole 500 mg tablet 1 tab PO Q12H 10/04/20 10/04/20 quetiapine 100 mg tablet 1 tab PO DAILY 10/04/20 10/04/20 quetiapine 300 mg tablet 1 tab PO BEDTIME 10/04/20 10/04/20 methadone 10 mg/mL oral 30 mg PO DAILY 10/06/20 10/06/20 concentrate (Methadone Intensol) Previous Rx's Medication Instructions Recorded clonidine HCl 0.1 mg tablet 1 tab PO BID #0 tabs 10/07/20 sulfamethoxazole 800 1 tab PO Q12H #28 tabs 10/07/20 mg-trimethoprim 160 mg tablet (Bactrim DS) doxycycline hyclate 100 mg tablet 100 mg PO BID 7 days #14 tabs 11/25/21 Allergies Allergy/AdvReac Type Severity Reaction Status Date / Time No Known Allergies Allergy Verified 11/25/21 02:37 [No Known Allergies*] Review of Systems Review of Systems: Constitutional : No Weight loss, No Fever, No Chills, No Night Sweats, No Fatigue, No Malaise, complaining of feeling weird ENT/Mouth : No Hearing loss, No Ear Pain, No Nasal Congestion, No Sinus Pain, No Hoarseness, No sore throat, No Rhinorrhea, No Swallowing Difficulty Eyes: No Eye Pain, No Swelling, No Redness, No Foreign Body, No Discharge, No Vision Changes Cardiovascular : No Chest Pain, No SOB, No Dyspnea on Exertion, No Orthopnea, No Edema, No Palpitations Respiratory : No Cough, No Sputum, No Wheezing, No Smoke Exposure, No Dyspnea Gastrointestinal : No Nausea, No Vomiting, No Diarrhea, No Constipation, No abdominal Pain, No Hematochezia, No Melena Genitourinary : no irregular bleeding, No Dysuria, No Urinary Frequency, No Hematuria, No Urinary Incontinence, No Urgency, No Flank Pain, No Urinary Flow Changes, No Hesitancy Musculoskeletal : No joint pain, No Myalgias, No Joint Swelling Skin : No Skin Lesions, No rash Neuro : No Weakness, No Numbness, No Paresthesias, No Loss of Consciousness, No Dizziness, No Headache Psych : No Anxiety/Panic, No Depression, No SI/HI/AH/VH, No Social Issues, Heme/Lymph: No Bruising, No Bleeding,No Lymphadenopathy Endocrine : No Polyuria, No Polydipsia, No Temperature Intolerance [facility] Past Medical History Medical History Acute anxiety Anxiety Atypical bipolar disorder Depression Depression Drug-induced psychotic disorder History of drug dependence/abuse Opiate withdrawal PTSD (post-traumatic stress disorder) Social History Social History Household Members: Family Household Members Other:: grandmother Housing: Unknown / Unable to assess Do you presently have visiting nurse or other home services: No Unable to assess alcohol history related to: Refusing to respond 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: current 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 frequency: a few times a week Alcohol type: beer, wine and hard liquor Patient Tobacco Use Status: Tobacco use Unknown Cigarette Packs Per Day: 1.5 Cigarettes Per Day: 30.0 Years Smoked: 23 Second Hand Smoke Exposure: Yes Substance Use Type: Heroin Advance Directives: No Advance Directives Information Provided: Yes service: No Current occupational status: unemployed Physical Exam ED Vital Signs: Vital Signs - 24 hr 11/25/21 02:34 11/25/21 02:57 Temperature 98.9 F 97.9 F Pulse Rate 98 114 H Respiratory Rate 19 18 Blood Pressure 142/92 H 139/96 H Pulse Oximetry 97 97 Oxygen Delivery Method Room Air Room Air BMI result Body Mass Index 24.0 Const Other: Appearance: Alert. Oriented X3. anxious, pacing in her room, shaking her arms and her legs, rubbing her face, jumping and shaking her limbs Eyes: Bilateral myadriasis, Pupils equal, round and reactive to light. ENT: Pharynx normal. Neck: Normal inspection. Neck supple. No lymph nodes noted. No crepitus CVS: Normal heart rate and rhythm. Pulses normal. Normal S1 and S2 Respiratory: No respiratory distress. Breath sounds normal. No Wheezing. No rales Abdomen: Soft and nontender. No rigidity. No distention. Skin: Skin warm and dry. Normal skin color. Normal skin turgor. Extremities: No lower extremity edema. No Lacerations. No Rash Neuro: Oriented X 3. No motor deficit. No sensory deficit. Moving all extremities. No slurred speech. CN 2 through 12 grossly intact Psych: Anxious, pacing in her room, jumping and shaking her leg wounds, can not sit still Course Course Course Narrative: EKG in U tox pending. Patient was given 2 mg of p.o. Ativan for her anxiety Patient being treated prophylactically for STDs, 1 g of ceftriaxone and p.o. doxycycline Patient requesting information for detox 04:21. I was informed by the patient's nurse that the patient was found smoking in her room 04:36, patient has good p.o. intake, information was provided to the patient, before discharge Discharge Plan Discharge Clinical Impression: Polysubstance abuse, Anxiety, Exposure to STD Patient Disposition: Home, Self-Care Instructions: Sexually Transmitted Diseases (ED), Polysubstance Abuse (ED), Anxiety (ED) Additional Instructions: Please follow-up with your primary care physician tomorrow. If you have any worsening or new symptoms, please return to the emergency room or call 911 Prescriptions: New doxycycline hyclate 100 mg tablet 100 mg PO BID 7 Days Qty: 14 0RF No Action desogestrel-ethinyl estradiol [Apri] 0.15-0.03 mg tablet 1 tab PO DAILY Label Comments: NOT TAKING MEDS quetiapine 300 mg tablet 1 tab PO BEDTIME Label Comments: NOT TAKING MEDS gabapentin 400 mg capsule 1 cap PO TID Label Comments: NOT TAKING MEDS metronidazole 500 mg tablet 1 tab PO Q12H Label Comments: NOT TAKING MEDS quetiapine 100 mg tablet 1 tab PO DAILY Label Comments: NOT TAKING MEDS famotidine 20 mg tablet 1 tab PO DAILY Label Comments: NOT TAKING MEDS methadone [Methadone Intensol] 10 mg/mL Concentrate 30 mg PO DAILY sulfamethoxazole-trimethoprim [Bactrim DS] 800-160 mg tablet 1 tab PO Q12H Qty: 28 0RF clonidine HCl 0.1 mg tablet 1 tab PO BID Qty: 0 0RF Label Comments: NOT TAKING MEDS
[2021-11-25] MEDS: LORazepam 1 MG TABLET 2 MG PO (03:17)
[2021-11-25] MEDS: cefTRIAXone sodium 500 MG VIAL IM (04:06)
--- NOTE | 2021-11-25 04:12 | PC.NURSE ---
pt ambulating in room. sandwich and silverio daniele given per request. pt states she is starting to feel a lot better . call bond within reach. pt in view of nurses station. will continue to monitor
== END 2021-11-25 05:00 | disposition home or self-care (01) ==
PROVIDERS: Emergency Provider Emergency Medicine
DX: F19.10 Other psychoactive substance abuse, uncomplicated (principal); F41.9 Anxiety disorder, unspecified; F17.210 Nicotine dependence, cigarettes, uncomplicated; F11.20 Opioid dependence, uncomplicated; F14.10 Cocaine abuse, uncomplicated; Z20.2 Contact with and (suspected) exposure to infections with a predominantly sexual mode of transmission
CPT/HCPCS: 93005; 96372; 99284; J0696

== ENCOUNTER 2022-04-14 15:00 | Inpatient (IN) | payer MEDICAID, OTHER, SELFPAY ==
[2022-04-14 15:42] VITALS: BP 148/89; PULSE 101; RESP 18; TEMP 36.7; O2SAT 96; BMI 29.2
--- NOTE | 2022-04-14 15:45 | ED_ITS ---
HPI - General Adult General Chief complaint: Psychiatric Symptoms <BHARAT Graham - Last Filed: 04/15/22 11:27> Stated complaint: ?std <BHARAT Graham - Last Filed: 04/15/22 11:27> Time Seen by Provider: 04/14/22 17:15 <BHARAT Graham - Last Filed: 04/15/22 11:27> Source: patient <Ben Brown MD - Last Filed: 04/15/22 01:03> Mode of arrival: ambulatory <Ben Brown MD - Last Filed: 04/15/22 01:03> Limitations: no limitations <Ben Brown MD - Last Filed: 04/15/22 01:03> History of Present Illness HPI narrative: History of bipolar disorder PTSD substance abuse on methadone comes here for increased depression and SI without any plan. Patient was clean for 4 months started using heroin IV for last 4 days. Unable to get her methadone. Patient want to clean herself , wants to go to psych floor so that she can get her medication which she has not taken for years. Also patient complaining of asking for prophylaxis for STDs as she had unprotected sex and she was told that she has gonorrhea and chlamydia positive about 6 months ago <Ben Brown MD - Last Filed: 04/15/22 01:03> Related Data Home medications: Home Medications Medication Instructions Recorded Confirmed desogestrel 0.15 mg-ethinyl 1 tab PO DAILY 10/04/20 10/04/20 estradiol 0.03 mg tablet (Apri) famotidine 20 mg tablet 1 tab PO DAILY 10/04/20 10/04/20 gabapentin 400 mg capsule 1 cap PO TID 10/04/20 10/04/20 metronidazole 500 mg tablet 1 tab PO Q12H 10/04/20 10/04/20 quetiapine 100 mg tablet 1 tab PO DAILY 10/04/20 10/04/20 quetiapine 300 mg tablet 1 tab PO BEDTIME 10/04/20 10/04/20 methadone 10 mg/mL oral 30 mg PO DAILY 10/06/20 10/06/20 concentrate (Methadone Intensol) clonidine HCl 0.1 mg tablet 1 tab PO TID PRN Anxiety 04/15/22 04/15/22 gabapentin 800 mg tablet 1 tab PO TID 04/15/22 04/15/22 hydroxyzine pamoate 50 mg capsule 1 cap PO TID 04/15/22 04/15/22 hydroxyzine pamoate 50 mg capsule 1 cap PO TID 04/15/22 04/15/22 olanzapine 10 mg tablet 1 tab PO DAILY 04/15/22 04/15/22 topiramate 100 mg tablet 1 tab PO DAILY 04/15/22 04/15/22 trazodone 100 mg tablet 2 tab PO QPM 04/15/22 04/15/22 Previous Rx's Medication Instructions Recorded clonidine HCl 0.1 mg tablet 1 tab PO BID #0 tabs 10/07/20 sulfamethoxazole 800 1 tab PO Q12H #28 tabs 10/07/20 mg-trimethoprim 160 mg tablet (Bactrim DS) doxycycline hyclate 100 mg tablet 100 mg PO BID 7 days #14 tabs 11/25/21 <BHARAT Graham - Last Filed: 04/15/22 11:27> Allergies/adverse reactions: Allergies Allergy/AdvReac Type Severity Reaction Status Date / Time No Known Allergies Allergy Verified 11/25/21 02:37 [No Known Allergies*] <BHARAT Graham - Last Filed: 04/15/22 11:27> Review of Systems Review of Systems: Yes all other systems are reviewed and are negative <Ben Brown MD - Last Filed: 04/15/22 01:03> PMFSH Past Medical History Medical History: Medical History Acute anxiety Anxiety Atypical bipolar disorder Depression Depression Drug-induced psychotic disorder History of drug dependence/abuse Opiate withdrawal PTSD (post-traumatic stress disorder) <BHARAT Graham - Last Filed: 04/15/22 11:27> Social History Social History: Social History Household Members: Family Household Members Other:: grandmother Housing: Unknown / Unable to assess Do you presently have visiting nurse or other home services: No Unable to assess alcohol history related to: Refusing to respond 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: current 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 frequency: a few times a week Alcohol type: beer, wine and hard liquor Patient Tobacco Use Status: Tobacco use Unknown Cigarette Packs Per Day: 1.5 Cigarettes Per Day: 30.0 Years Smoked: 23 Second Hand Smoke Exposure: Yes Substance Use Type: Heroin Advance Directives: No Advance Directives Information Provided: No service: No Current occupational status: unemployed <BHARAT Graham - Last Filed: 04/15/22 11:27> Physical Exam ED Vital Signs: Vital Signs - 24 hr 04/14/22 15:42 04/15/22 07:58 Temperature 98.1 F 98.7 F Pulse Rate 101 H 92 Respiratory Rate 18 12 Blood Pressure 148/89 H 100/57 L Pulse Oximetry 96 92 Oxygen Delivery Method Room Air Room Air BMI result Body Mass Index 29.2 <BHARAT Graham - Last Filed: 04/15/22 11:27> Vital Signs - 24 hr 04/14/22 15:42 04/15/22 07:58 Temperature 98.1 F 98.7 F Pulse Rate 101 H 92 Respiratory Rate 18 12 Blood Pressure 148/89 H 100/57 L Pulse Oximetry 96 92 Oxygen Delivery Method Room Air Room Air BMI result Body Mass Index 29.2 <Ben Brown MD - Last Filed: 04/15/22 01:03> Vital Signs - 24 hr 04/14/22 15:42 04/15/22 07:58 Temperature 98.1 F 98.7 F Pulse Rate 101 H 92 Respiratory Rate 18 12 Blood Pressure 148/89 H 100/57 L Pulse Oximetry 96 92 Oxygen Delivery Method Room Air Room Air BMI result Body Mass Index 29.2 <Jimi León MD - Last Filed: 04/15/22 09:13> Appearance: Alert. Oriented X3. No acute distress. Eyes: PERRLA, No Nystagmus ENT: Pharynx normal. Oral Mucosa moist Neck: Normal inspection. Neck supple. CVS: Normal heart rate and rhythm. Pulses normal. Respiratory: No respiratory distress. Equal air entry bilateral, no wheezin g/rales/rhonchi Abdomen: Soft and nontender. Bowel sounds are present, no mass palpable, no CVA tenderness Skin: Skin warm and dry. Normal skin color. Normal skin turgor. psych; feel depressed with suicidal ideation no current plan no hallucinations or delusions Extremities: No lower extremity edema. No calf tenderness Neuro: Oriented X 3. No motor deficit. No sensory deficit.No cerebellar signs , cranial nerves II-XII intact <Ben Brown MD - Last Filed: 04/15/22 01:03> Course Course Course Narrative: RME: Patient presents to the for suicidal ideation and plans by drinking multiple pills. Patient secondary complaints is positive for gonorrhea and trichomonas and wants treatment. Patient sent straight to the ED <BHARAT Graham - Last Filed: 04/15/22 11:27> Reevaluation(s) Reevaluation #1: 04/15/2022 Signed out to me at 6.[address] Ulloa no events overnight we are waiting for care team eval.No events overnight. <Jimi León MD - Last Filed: 04/15/22 09:13> Time: 09:06 <Jimi León MD - Last Filed: 04/15/22 09:13> Medications Administered Generic Name Dose Route Start Last Admin Trade Name Freq PRN Reason Stop Dose Admin Clonidine HCl 0.1 mg 04/15/22 01:39 04/15/22 02:51 Clonidine Hcl 0.1 Mg Tablet PO 0.1 mg TID PRN Administration Anxiety Protocol Gabapentin 800 mg 04/15/22 01:45 04/15/22 10:49 Gabapentin 400 Mg Capsule PO 800 mg TID JAIR Administration Hydroxyzine HCl 50 mg 04/15/22 01:45 04/15/22 10:49 Hydroxyzine Hcl 50 Mg Tablet PO 50 mg TID JAIR Administration Olanzapine 10 mg 04/15/22 09:00 04/15/22 10:49 Olanzapine 10 Mg Tablet PO 10 mg DAILY JAIR Administration Topiramate 100 mg 04/15/22 09:00 04/15/22 10:49 Topiramate 100 Mg Tablet PO 100 mg DAILY JAIR Administration Trazodone HCl 200 mg 04/15/22 01:45 04/15/22 02:51 Trazodone Hcl 100 Mg Tablet PO 200 mg BEDTIME JAIR Administration Discontinued Medications Generic Name Dose Route Start Last Admin Trade Name Freq PRN Reason Stop Dose Admin Azithromycin 1,000 mg 04/14/22 17:31 04/14/22 20:38 Azithromycin 500 Mg Tablet PO 04/14/22 17:32 1,000 mg ONCE ONE Administration Ceftriaxone Sodium 500 mg/ 0 mg 04/14/22 17:31 04/14/22 20:38 Lidocaine HCl 1 ml IM 04/14/22 17:32 500 kit ONCE ONE Administration Lorazepam 2 mg 04/14/22 22:08 04/14/22 22:24 Lorazepam 2 Mg/Ml Vial IM 04/14/22 22:09 2 mg STAT STA Administration Methadone HCl 40 mg 04/15/22 01:41 04/15/22 02:52 Methadone Hcl 20 Mg/2 Ml Oral.Conc PO 04/15/22 01:42 40 mg ONCE ONE Administration Metronidazole 2,000 mg 04/14/22 17:31 04/14/22 20:38 Metronidazole 500 Mg Tablet PO 04/14/22 17:32 2,000 mg ONCE ONE Administration Ondansetron HCl 4 mg 04/14/22 22:08 04/14/22 22:24 Ondansetron Odt 4 Mg Tab.Rapdis TRANSLINGU 04/14/22 22:09 4 mg ONCE ONE Administration <BHARAT Graham - Last Filed: 04/15/22 11:27> Medications Administered Generic Name Dose Route Start Last Admin Trade Name Freq PRN Reason Stop Dose Admin Clonidine HCl 0.1 mg 04/15/22 01:39 04/15/22 02:51 Clonidine Hcl 0.1 Mg Tablet PO 0.1 mg TID PRN Administration Anxiety Protocol Gabapentin 800 mg 04/15/22 01:45 04/15/22 10:49 Gabapentin 400 Mg Capsule PO 800 mg TID JAIR Administration Hydroxyzine HCl 50 mg 04/15/22 01:45 04/15/22 10:49 Hydroxyzine Hcl 50 Mg Tablet PO 50 mg TID JAIR Administration Olanzapine 10 mg 04/15/22 09:00 04/15/22 10:49 Olanzapine 10 Mg Tablet PO 10 mg DAILY JAIR Administration Topiramate 100 mg 04/15/22 09:00 04/15/22 10:49 Topiramate 100 Mg Tablet PO 100 mg DAILY JAIR Administration Trazodone HCl 200 mg 04/15/22 01:45 04/15/22 02:51 Trazodone Hcl 100 Mg Tablet PO 200 mg BEDTIME JAIR Administration Discontinued Medications Generic Name Dose Route Start Last Admin Trade Name Freq PRN Reason Stop Dose Admin Azithromycin 1,000 mg 04/14/22 17:31 04/14/22 20:38 Azithromycin 500 Mg Tablet PO 04/14/22 17:32 1,000 mg ONCE ONE Administration Ceftriaxone Sodium 500 mg/ 0 mg 04/14/22 17:31 04/14/22 20:38 Lidocaine HCl 1 ml IM 04/14/22 17:32 500 kit ONCE ONE Administration Lorazepam 2 mg 04/14/22 22:08 04/14/22 22:24 Lorazepam 2 Mg/Ml Vial IM 04/14/22 22:09 2 mg STAT STA Administration Methadone HCl 40 mg 04/15/22 01:41 04/15/22 02:52 Methadone Hcl 20 Mg/2 Ml Oral.Conc PO 04/15/22 01:42 40 mg ONCE ONE Administration Metronidazole 2,000 mg 04/14/22 17:31 04/14/22 20:38 Metronidazole 500 Mg Tablet PO 04/14/22 17:32 2,000 mg ONCE ONE Administration Ondansetron HCl 4 mg 04/14/22 22:08 04/14/22 22:24 Ondansetron Odt 4 Mg Tab.Rapdis TRANSLINGU 04/14/22 22:09 4 mg ONCE ONE Administration <Ben Brown MD - Last Filed: 04/15/22 01:03> Medications Administered Generic Name Dose Route Start Last Admin Trade Name Freq PRN Reason Stop Dose Admin Clonidine HCl 0.1 mg 04/15/22 01:39 04/15/22 02:51 Clonidine Hcl 0.1 Mg Tablet PO 0.1 mg TID PRN Administration Anxiety Protocol Gabapentin 800 mg 04/15/22 01:45 04/15/22 10:49 Gabapentin 400 Mg Capsule PO 800 mg TID JAIR Administration Hydroxyzine HCl 50 mg 04/15/22 01:45 04/15/22 10:49 Hydroxyzine Hcl 50 Mg Tablet PO 50 mg TID JAIR Administration Olanzapine 10 mg 04/15/22 09:00 04/15/22 10:49 Olanzapine 10 Mg Tablet PO 10 mg DAILY JAIR Administration Topiramate 100 mg 04/15/22 09:00 04/15/22 10:49 Topiramate 100 Mg Tablet PO 100 mg DAILY JAIR Administration Trazodone HCl 200 mg 04/15/22 01:45 04/15/22 02:51 Trazodone Hcl 100 Mg Tablet PO 200 mg BEDTIME JAIR Administration Discontinued Medications Generic Name Dose Route Start Last Admin Trade Name Freq PRN Reason Stop Dose Admin Azithromycin 1,000 mg 04/14/22 17:31 04/14/22 20:38 Azithromycin 500 Mg Tablet PO 04/14/22 17:32 1,000 mg ONCE ONE Administration Ceftriaxone Sodium 500 mg/ 0 mg 04/14/22 17:31 04/14/22 20:38 Lidocaine HCl 1 ml IM 04/14/22 17:32 500 kit ONCE ONE Administration Lorazepam 2 mg 04/14/22 22:08 04/14/22 22:24 Lorazepam 2 Mg/Ml Vial IM 04/14/22 22:09 2 mg STAT STA Administration Methadone HCl 40 mg 04/15/22 01:41 04/15/22 02:52 Methadone Hcl 20 Mg/2 Ml Oral.Conc PO 04/15/22 01:42 40 mg ONCE ONE Administration Metronidazole 2,000 mg 04/14/22 17:31 04/14/22 20:38 Metronidazole 500 Mg Tablet PO 04/14/22 17:32 2,000 mg ONCE ONE Administration Ondansetron HCl 4 mg 04/14/22 22:08 04/14/22 22:24 Ondansetron Odt 4 Mg Tab.Rapdis TRANSLINGU 04/14/22 22:09 4 mg ONCE ONE Administration <Jimi León MD - Last Filed: 04/15/22 09:13> Medical Decision Making Medical Decision Making MDM Narrative: Patient with substance abuse cocaine and opiates with depression suicidal feeling requesting crisis evaluation ,will evaluate patient for depression/SI/substance abuse patient been treated prophylactically for STI which according to patient was about 6 months ago <Ben Brown MD - Last Filed: 04/15/22 01:03> Lab Data MDM Lab Attestation statement: I reviewed the patient's lab results. <Ben Brown MD - Last Filed: 04/15/22 01:03> Result Diagrams: 04/14/22 18:26 04/14/22 18:25 <BHARAT Graham - Last Filed: 04/15/22 11:27> Labs: Lab Results 04/14/22 04/14/22 04/14/22 Range/Units 18:25 18:26 18:26 WBC 5.4 (4.8-10.8) X10*3/uL RBC 3.91 L (4.20-5.50) X10*6/uL Hgb 9.4 L (12.0-16.0) g/dl Hct 30.8 L (37.0-47.0) % MCV 78.8 L (80.0-98.0) fL MCH 24.0 L (27.0-33.0) pg MCHC 30.5 L (31.0-35.0) g/dl RDW 16.5 H (11.0-16.0) % Plt Count 218 (160-400) X10*3/uL MPV 10.8 (9.4-12.3) fL Immature Gran % (Auto) 0.2 (0.0-0.4) % Neut % (Auto) 53.9 (45-73) % Lymph % (Auto) 35.9 (20-40) % Jerome % (Auto) 7.4 (2-11) % Eos % (Auto) 2.2 (0-4) % Baso % (Auto) 0.4 (0-2) % Lymph # (Auto) 2.0 (1.2-4.9) X10*3/uL Jerome # (Auto) 0.4 (0.1-1.2) X10*3/uL Eos # (Auto) 0.1 (0.0-0.4) X10*3/uL Baso # (Auto) 0.0 (0.0-0.2) X10*3/uL Abs Immat Gran (auto) 0.01 (0.00-0.03) X10*3/uL Absolute Neuts (auto) 2.9 (2.0-8.3) x10*3/uL Absolute Nucleated RBC 0.000 (0.0-0.012) X10*3/uL Nucleated RBC % (auto) 0.0 (0.0-0.2) /100WBC Sodium 140 (135-145) mmol/L Potassium 3.3 (3.3-5.1) mmol/L Chloride 105 (96-108) mmol/L Carbon Dioxide 24 (22-29) mmol/L Anion Gap 14 (12-20) BUN 16 (9-16) mg/dL Creatinine 0.86 (0.5-1.4) mg/dL Estim Creat Clear Calc 91.7 Estimated GFR > 60 Random Glucose 134 H (60-115) mg/dL Calcium 9.2 D (8.4-10.2) mg/dL Total Bilirubin 0.3 (0.0-1.0) mg/dL AST 35 H (5-31) U/L ALT 24 (0-31) U/L Alkaline Phosphatase 65 (39-117) U/L Total Protein 7.2 (6.5-8.0) g/dL Albumin 4.0 (3.5-5.0) g/dL Ethyl Alcohol mg/dL COVID-19 (AUTUMN) Negative (Negative) COVID-19 Clin Com See Note 04/14/22 Range/Units 18:26 WBC (4.8-10.8) X10*3/uL RBC (4.20-5.50) X10*6/uL Hgb (12.0-16.0) g/dl Hct (37.0-47.0) % MCV (80.0-98.0) fL MCH (27.0-33.0) pg MCHC (31.0-35.0) g/dl RDW (11.0-16.0) % Plt Count (160-400) X10*3/uL MPV (9.4-12.3) fL Immature Gran % (Auto) (0.0-0.4) % Neut % (Auto) (45-73) % Lymph % (Auto) (20-40) % Jerome % (Auto) (2-11) % Eos % (Auto) (0-4) % Baso % (Auto) (0-2) % Lymph # (Auto) (1.2-4.9) X10*3/uL Jerome # (Auto) (0.1-1.2) X10*3/uL Eos # (Auto) (0.0-0.4) X10*3/uL Baso # (Auto) (0.0-0.2) X10*3/uL Abs Immat Gran (auto) (0.00-0.03) X10*3/uL Absolute Neuts (auto) (2.0-8.3) x10*3/uL Absolute Nucleated RBC (0.0-0.012) X10*3/uL Nucleated RBC % (auto) (0.0-0.2) /100WBC Sodium (135-145) mmol/L Potassium (3.3-5.1) mmol/L Chloride (96-108) mmol/L Carbon Dioxide (22-29) mmol/L Anion Gap (12-20) BUN (9-16) mg/dL Creatinine (0.5-1.4) mg/dL Estim Creat Clear Calc Estimated GFR Random Glucose (60-115) mg/dL Calcium (8.4-10.2) mg/dL Total Bilirubin (0.0-1.0) mg/dL AST (5-31) U/L ALT (0-31) U/L Alkaline Phosphatase (39-117) U/L Total Protein (6.5-8.0) g/dL Albumin (3.5-5.0) g/dL Ethyl Alcohol < 10 mg/dL COVID-19 (AUTUMN) (Negative) COVID-19 Clin Com <BHARAT Graham - Last Filed: 04/15/22 11:27> Lab Results 04/14/22 04/14/22 04/14/22 Range/Units 18:25 18:26 18:26 WBC 5.4 (4.8-10.8) X10*3/uL RBC 3.91 L (4.20-5.50) X10*6/uL Hgb 9.4 L (12.0-16.0) g/dl Hct 30.8 L (37.0-47.0) % MCV 78.8 L (80.0-98.0) fL MCH 24.0 L (27.0-33.0) pg MCHC 30.5 L (31.0-35.0) g/dl RDW 16.5 H (11.0-16.0) % Plt Count 218 (160-400) X10*3/uL MPV 10.8 (9.4-12.3) fL Immature Gran % (Auto) 0.2 (0.0-0.4) % Neut % (Auto) 53.9 (45-73) % Lymph % (Auto) 35.9 (20-40) % Jerome % (Auto) 7.4 (2-11) % Eos % (Auto) 2.2 (0-4) % Baso % (Auto) 0.4 (0-2) % Lymph # (Auto) 2.0 (1.2-4.9) X10*3/uL Jerome # (Auto) 0.4 (0.1-1.2) X10*3/uL Eos # (Auto) 0.1 (0.0-0.4) X10*3/uL Baso # (Auto) 0.0 (0.0-0.2) X10*3/uL Abs Immat Gran (auto) 0.01 (0.00-0.03) X10*3/uL Absolute Neuts (auto) 2.9 (2.0-8.3) x10*3/uL Absolute Nucleated RBC 0.000 (0.0-0.012) X10*3/uL Nucleated RBC % (auto) 0.0 (0.0-0.2) /100WBC Sodium 140 (135-145) mmol/L Potassium 3.3 (3.3-5.1) mmol/L Chloride 105 (96-108) mmol/L Carbon Dioxide 24 (22-29) mmol/L Anion Gap 14 (12-20) BUN 16 (9-16) mg/dL Creatinine 0.86 (0.5-1.4) mg/dL Estim Creat Clear Calc 91.7 Estimated GFR > 60 Random Glucose 134 H (60-115) mg/dL Calcium 9.2 D (8.4-10.2) mg/dL Total Bilirubin 0.3 (0.0-1.0) mg/dL AST 35 H (5-31) U/L ALT 24 (0-31) U/L Alkaline Phosphatase 65 (39-117) U/L Total Protein 7.2 (6.5-8.0) g/dL Albumin 4.0 (3.5-5.0) g/dL Ethyl Alcohol mg/dL COVID-19 (AUTUMN) Negative (Negative) COVID-19 Clin Com See Note 04/14/22 Range/Units 18:26 WBC (4.8-10.8) X10*3/uL RBC (4.20-5.50) X10*6/uL Hgb (12.0-16.0) g/dl Hct (37.0-47.0) % MCV (80.0-98.0) fL MCH (27.0-33.0) pg MCHC (31.0-35.0) g/dl RDW (11.0-16.0) % Plt Count (160-400) X10*3/uL MPV (9.4-12.3) fL Immature Gran % (Auto) (0.0-0.4) % Neut % (Auto) (45-73) % Lymph % (Auto) (20-40) % Jerome % (Auto) (2-11) % Eos % (Auto) (0-4) % Baso % (Auto) (0-2) % Lymph # (Auto) (1.2-4.9) X10*3/uL Jerome # (Auto) (0.1-1.2) X10*3/uL Eos # (Auto) (0.0-0.4) X10*3/uL Baso # (Auto) (0.0-0.2) X10*3/uL Abs Immat Gran (auto) (0.00-0.03) X10*3/uL Absolute Neuts (auto) (2.0-8.3) x10*3/uL Absolute Nucleated RBC (0.0-0.012) X10*3/uL Nucleated RBC % (auto) (0.0-0.2) /100WBC Sodium (135-145) mmol/L Potassium (3.3-5.1) mmol/L Chloride (96-108) mmol/L Carbon Dioxide (22-29) mmol/L Anion Gap (12-20) BUN (9-16) mg/dL Creatinine (0.5-1.4) mg/dL Estim Creat Clear Calc Estimated GFR Random Glucose (60-115) mg/dL Calcium (8.4-10.2) mg/dL Total Bilirubin (0.0-1.0) mg/dL AST (5-31) U/L ALT (0-31) U/L Alkaline Phosphatase (39-117) U/L Total Protein (6.5-8.0) g/dL Albumin (3.5-5.0) g/dL Ethyl Alcohol < 10 mg/dL COVID-19 (AUTUMN) (Negative) COVID-19 Clin Com <Ben Brown MD - Last Filed: 04/15/22 01:03> Lab Results 04/14/22 04/14/22 04/14/22 Range/Units 18:25 18:26 18:26 WBC 5.4 (4.8-10.8) X10*3/uL RBC 3.91 L (4.20-5.50) X10*6/uL Hgb 9.4 L (12.0-16.0) g/dl Hct 30.8 L (37.0-47.0) % MCV 78.8 L (80.0-98.0) fL MCH 24.0 L (27.0-33.0) pg MCHC 30.5 L (31.0-35.0) g/dl RDW 16.5 H (11.0-16.0) % Plt Count 218 (160-400) X10*3/uL MPV 10.8 (9.4-12.3) fL Immature Gran % (Auto) 0.2 (0.0-0.4) % Neut % (Auto) 53.9 (45-73) % Lymph % (Auto) 35.9 (20-40) % Jerome % (Auto) 7.4 (2-11) % Eos % (Auto) 2.2 (0-4) % Baso % (Auto) 0.4 (0-2) % Lymph # (Auto) 2.0 (1.2-4.9) X10*3/uL Jerome # (Auto) 0.4 (0.1-1.2) X10*3/uL Eos # (Auto) 0.1 (0.0-0.4) X10*3/uL Baso # (Auto) 0.0 (0.0-0.2) X10*3/uL Abs Immat Gran (auto) 0.01 (0.00-0.03) X10*3/uL Absolute Neuts (auto) 2.9 (2.0-8.3) x10*3/uL Absolute Nucleated RBC 0.000 (0.0-0.012) X10*3/uL Nucleated RBC % (auto) 0.0 (0.0-0.2) /100WBC Sodium 140 (135-145) mmol/L Potassium 3.3 (3.3-5.1) mmol/L Chloride 105 (96-108) mmol/L Carbon Dioxide 24 (22-29) mmol/L Anion Gap 14 (12-20) BUN 16 (9-16) mg/dL Creatinine 0.86 (0.5-1.4) mg/dL Estim Creat Clear Calc 91.7 Estimated GFR > 60 Random Glucose 134 H (60-115) mg/dL Calcium 9.2 D (8.4-10.2) mg/dL Total Bilirubin 0.3 (0.0-1.0) mg/dL AST 35 H (5-31) U/L ALT 24 (0-31) U/L Alkaline Phosphatase 65 (39-117) U/L Total Protein 7.2 (6.5-8.0) g/dL Albumin 4.0 (3.5-5.0) g/dL Ethyl Alcohol mg/dL COVID-19 (AUTUMN) Negative (Negative) COVID-19 Clin Com See Note 04/14/22 Range/Units 18:26 WBC (4.8-10.8) X10*3/uL RBC (4.20-5.50) X10*6/uL Hgb (12.0-16.0) g/dl Hct (37.0-47.0) % MCV (80.0-98.0) fL MCH (27.0-33.0) pg MCHC (31.0-35.0) g/dl RDW (11.0-16.0) % Plt Count (160-400) X10*3/uL MPV (9.4-12.3) fL Immature Gran % (Auto) (0.0-0.4) % Neut % (Auto) (45-73) % Lymph % (Auto) (20-40) % Jerome % (Auto) (2-11) % Eos % (Auto) (0-4) % Baso % (Auto) (0-2) % Lymph # (Auto) (1.2-4.9) X10*3/uL Jerome # (Auto) (0.1-1.2) X10*3/uL Eos # (Auto) (0.0-0.4) X10*3/uL Baso # (Auto) (0.0-0.2) X10*3/uL Abs Immat Gran (auto) (0.00-0.03) X10*3/uL Absolute Neuts (auto) (2.0-8.3) x10*3/uL Absolute Nucleated RBC (0.0-0.012) X10*3/uL Nucleated RBC % (auto) (0.0-0.2) /100WBC Sodium (135-145) mmol/L Potassium (3.3-5.1) mmol/L Chloride (96-108) mmol/L Carbon Dioxide (22-29) mmol/L Anion Gap (12-20) BUN (9-16) mg/dL Creatinine (0.5-1.4) mg/dL Estim Creat Clear Calc Estimated GFR Random Glucose (60-115) mg/dL Calcium (8.4-10.2) mg/dL Total Bilirubin (0.0-1.0) mg/dL AST (5-31) U/L ALT (0-31) U/L Alkaline Phosphatase (39-117) U/L Total Protein (6.5-8.0) g/dL Albumin (3.5-5.0) g/dL Ethyl Alcohol < 10 mg/dL COVID-19 (AUTUMN) (Negative) COVID-19 Clin Com <Jimi León MD - Last Filed: 04/15/22 09:13> Discharge Plan Discharge Clinical Impression: Depression, Bipolar disorder, Polysubstance abuse <BHARAT Graham - Last Filed: 04/15/22 11:27> Patient Disposition: Still a Patient <BHARAT Graham - Last Filed: 04/15/22 11:27> Prescriptions: No Action desogestrel-ethinyl estradiol [Apri] 0.15-0.03 mg tablet 1 tab PO DAILY Label Comments: NOT TAKING MEDS quetiapine 300 mg tablet 1 tab PO BEDTIME Label Comments: NOT TAKING MEDS gabapentin 400 mg capsule 1 cap PO TID Label Comments: NOT TAKING MEDS metronidazole 500 mg tablet 1 tab PO Q12H Label Comments: NOT TAKING MEDS quetiapine 100 mg tablet 1 tab PO DAILY Label Comments: NOT TAKING MEDS famotidine 20 mg tablet 1 tab PO DAILY Label Comments: NOT TAKING MEDS methadone [Methadone Intensol] 10 mg/mL Concentrate 30 mg PO DAILY sulfamethoxazole-trimethoprim [Bactrim DS] 800-160 mg tablet 1 tab PO Q12H Qty: 28 0RF clonidine HCl 0.1 mg tablet 1 tab PO BID Qty: 0 0RF Label Comments: NOT TAKING MEDS clonidine HCl 0.1 mg tablet 1 tab PO TID PRN (Reason: Anxiety) hydroxyzine pamoate 50 mg capsule 1 cap PO TID hydroxyzine pamoate 50 mg capsule 1 cap PO TID olanzapine 10 mg tablet 1 tab PO DAILY gabapentin 800 mg tablet 1 tab PO TID trazodone 100 mg tablet 2 tab PO QPM topiramate 100 mg tablet 1 tab PO DAILY doxycycline hyclate 100 mg tablet 100 mg PO BID 7 Days Qty: 14 0RF <BHARAT Graham - Last Filed: 04/15/22 11:27> Interventions: Hettinger-Suicide Risk Severity Scale Last Done: 04/15/22 00:06 <BHARAT Graham - Last Filed: 04/15/22 11:27>
--- NOTE | 2022-04-14 16:25 | PC.NURSE ---
AMB TO [facility] UNABLE TO GIVE URINE SAMPLE, CHANGED INTO HOSPITAL ATTIRE, BELONGINGS IN POD LOCKER 9
[2022-04-14 18:30] LABS: MANUAL DIFF FLAG NO
[2022-04-14 18:31] LABS: Eosinophils Absolute Auto 0.1 X10*3/uL (0.0-0.4); Eosinophils Percent Auto 2.2 % (0-4); Imm Gran Abs Auto 0.01 X10*3/uL (0.00-0.03); Imm Gran Pct Auto 0.2 % (0.0-0.4); Mean Corpuscular HGB Conc 30.5 g/dl (31.0-35.0); PLT CLUMP 1; SCAN SMEAR FLAG 1
[2022-04-14 18:33] LABS: Basophils Percent Auto 0.4 % (0-2); Hematocrit 30.8 % (37.0-47.0); Hemoglobin 9.4 g/dl (12.0-16.0); Lymphocytes Percent Auto 35.9 % (20-40); Mean Corpuscular Volume 78.8 fL (80.0-98.0); Mean Platelet Volume 10.8 fL (9.4-12.3); Monocytes Absolute Auto 0.4 X10*3/uL (0.1-1.2); Monocytes Percent Auto 7.4 % (2-11); Neutrophils Absolute Auto 2.9 x10*3/uL (2.0-8.3); Neutrophils Percent Auto 53.9 % (45-73); Red Blood Count 3.91 X10*6/uL (4.20-5.50); Red Cell Distribution Width 16.5 % (11.0-16.0)
[2022-04-14 18:35] LABS: White Blood Count 5.4 X10*3/uL (4.8-10.8)
[2022-04-14 18:49] LABS: Platelet Count 218 X10*3/uL (160-400)
[2022-04-14 18:51] LABS: Alanine Aminotransferase 24 U/L (0-31); Alkaline Phosphatase 65 U/L (39-117); Anion Gap 14 (12-20); Aspartate Amino Transferase 35 U/L (5-31); Bilirubin Total 0.3 mg/dL (0.0-1.0); Blood Urea Nitrogen 16 mg/dL (9-16); Calcium 9.2 mg/dL (8.4-10.2); Carbon Dioxide 24 mmol/L (22-29); Chloride 105 mmol/L (96-108); Creatinine Clr Calc Pharmacy 91.7; Estimated Glomerular Filt Rate > 60; Glucose Random 134 mg/dL (60-115); Potassium 3.3 mmol/L (3.3-5.1); Sodium 140 mmol/L (135-145); Total Protein 7.2 g/dL (6.5-8.0)
[2022-04-14 18:53] LABS: COVID-19 Test Negative (Negative); IDNOW Serial# 16C4AD1C
[2022-04-14] MEDS: metroNIDAZOLE 500 MG TABLET 2000 MG PO (20:38)
[2022-04-14] MEDS: Azithromycin 500 MG TABLET 1000 MG PO (20:38)
[2022-04-14] MEDS: cefTRIAXone sodium 500 MG, Lidocaine HCl 1 % MPF 1 ML IM (20:38)
[2022-04-14] MEDS: Ondansetron ODT 4 MG TAB.RAPDIS TRANSLINGU (22:24)
[2022-04-14] MEDS: LORazepam 2 MG/ML VIAL IM (22:24)
[2022-04-14 23:51] LABS: Ethanol < 10 mg/dL
--- NOTE | 2022-04-15 | ECG_ITS ---
Test Reason : RULE OUT QT PROLONGATION Blood Pressure : / mmHG Vent. Rate : 079 BPM Atrial Rate : 079 BPM P-R Int : 132 ms QRS Dur : 086 ms QT Int : 486 ms P-R-T Axes : 056 -18 -05 degrees QTc Int : 557 ms Normal sinus rhythm T wave abnormality, consider anterior ischemia Prolonged QT Abnormal ECG When compared with ECG of 25-NOV-2021 03:16, Incomplete right bundle branch block is no longer Present Referred By: Marisol Correia Electronically Signed By:LEON FERNANDES MD
[2022-04-15] MEDS: traZODone HCL 100 MG TABLET 200 MG PO ×2 (02:51→21:13)
[2022-04-15] MEDS: cloNIDine HCL 0.1 MG TABLET PO (02:51)
[2022-04-15] MEDS: hydrOXYzine HCL 50 MG TABLET PO ×4 (02:51→21:13)
[2022-04-15] MEDS: Gabapentin 400 MG CAPSULE 800 MG PO ×4 (02:52→21:13)
[2022-04-15] MEDS: methADONE HCl 20 MG/2 ML ORAL.CONC 40 MG PO (02:52)
--- NOTE | 2022-04-15 03:42 | PC.NURSE ---
patient sleeping comfortably on stretcher. respirations even and unlabored, equal chest rise and fall. waiting for [facility] consult in am
[2022-04-15 07:58] VITALS: BP 100/57; PULSE 92; RESP 12; TEMP 37.1; O2SAT 92
[2022-04-15] MEDS: Topiramate 100 MG TABLET PO (10:49)
[2022-04-15] MEDS: OLANZapine 10 MG TABLET PO (10:49)
--- NOTE | 2022-04-15 10:51 | PC.NURSE ---
patient medicated per order float nurse
--- NOTE | 2022-04-15 11:37 | PHA.MEDREC ---
Pharmacy Consult ? Medication Reconciliation Pharmacy has completed the medication reconciliation. Patient is poor historian of medications. Called the pharmacies they fill at to confirm lemon picker dates and confirm medications. Called patient's grandparent which was unfamiliar with their medications. Patient is on methadone, but dose and last time taken are unconfirmed at this time.
[2022-04-15 18:03] LABS: UPreg QC Valid YES; Urine Pregnancy NEGATIVE (NEGATIVE)
[2022-04-15 18:09] LABS: Amphetamine Screen Urine Not Detected (Not Detect); Barbiturates, Urine Not Detected (Not Detect); Benzodiazepines Screen Urine Not Detected (Not Detect); Cannabinoid Screen Urine POSITIVE (Not Detect); Cocaine Screen Urine POSITIVE (Not Detect); Fentanyl, urine POSITIVE (Not Detect); Opiate Screen Urine POSITIVE (Not Detect); Phencyclidine Screen Urine Not Detected (Not Detect)
[2022-04-15 18:15] LABS: Bacteria Urine 2+ (None Seen); Color Urine Yellow; Glucose Urine UA Negative (Negative); Hyaline Casts Urine 0-2 /LPF (0-2); Leukocyte Esterase Urine Moderate (2+) (Negative); Nitrite Urine Negative (Negative); PH 6.5 (5.0-9.0); RBC Urine >20 /HPF (0-2); Specific Gravity - Urine 1.015 (1.005-1.025); Squamous Epithelial Cell Urine >20 /HPF (0-2); UACC Culture Trigger YES; UMIC TRIGGER UACC YES; Urine Blood Large (3+) (Negative); Urine Ketones Negative (Negative); Urine Protein 30 (1+) mg/dL (Neg-Trace)
[2022-04-15 18:16] LABS: Appearance Urine Hazy
--- NOTE | 2022-04-15 18:48 | MHC.CARE ---
[facility] bed[facility] exhausted, placement not secured
--- NOTE | 2022-04-16 04:50 | PC.NURSE ---
Patient slept though the night, no distress observed/reported, behavior non concerning, disposition per care team is section 12 inpatient bed search, medication compliant, VSS, will continue to monitor.
[2022-04-16 04:51] LABS: Syphilis Screen Nonreactive (Nonreactive)
[2022-04-16 06:40] VITALS: BP 91/50; PULSE 70; RESP 17; TEMP 36.4; O2SAT 95
[2022-04-16 07:37] VITALS: BP 104/72; PULSE 98; RESP 18; TEMP 36.5; O2SAT 98
[2022-04-16] MEDS: hydrOXYzine HCL 50 MG TABLET PO ×3 (09:31→21:55)
[2022-04-16] MEDS: Topiramate 100 MG TABLET PO (09:31)
[2022-04-16] MEDS: Gabapentin 400 MG CAPSULE 800 MG PO ×3 (09:31→21:55)
[2022-04-16] MEDS: OLANZapine 10 MG TABLET PO (09:32)
--- NOTE | 2022-04-16 10:17 | PC.NURSE ---
confirmed 200mg methadone dosing with cindy monte[facility] with michael yin information faxed to pharmacy
--- NOTE | 2022-04-16 11:27 | HE.PHANOTE ---
[facility] 04/09/22 of 200 mg
--- NOTE | 2022-04-16 12:01 | PC.NURSE ---
assumed care of pt at 1100, pt calm and cooperative in room, requested gerson. plan to restart methadone with aim to increase pt back up to maintenance dosage.
[2022-04-16] MEDS: methADONE HCl 20 MG/2 ML ORAL.CONC 60 MG PO (12:11)
--- NOTE | 2022-04-16 12:15 | PC.NURSE ---
pt medicated per provider order, aware of plan to increase methadone dose.
--- NOTE | 2022-04-16 12:48 | P.CNPS_ITS ---
History of Present Illness Date of Service: 04/17/2022 Chief Complaint: SI Reason for Consult: SI Discussed with referring provider: Yes Sources of Information: patient interviewed, chart reviewed and crisis/core team assessment reviewed HPI Narrative: Ms. Hollingsworth is a 36 year-old woman with hx of Bipolar Disorder, opioid and cocaine use disorder who self presented to [facility] ED reporting increased depression without clear plan. Utox was positive for opiates, fentanyl, cocaine and cannabinoids. Pt reports she recently relapsed some weeks ago after 4 months of sobriety. Pt in the ED, presented with opioid withdrawal symptoms, irritable edge, at times declining to provide further information as she reported feeling unwell physically due to opioid withdrawal. Pt was seen by care team and had agreed to be referred to CSS or dual dx residential treatment. Pt seen today in the ED. Pt reports feeling anxious, not well due to opioid withdrawal including muscle aches, GI discomfort, anxious mood. Pt reports she receives methadone 200mg po daily but has not received it in past week. His EKG on 04/14 shows Qtc prolongation of 557ms with K of 3.3, Mg not checked. Pt declines chest pain or palpitations at this time. Methadone clinic recommends to give 60mg of methadone and quickly increase dose, closely monitoring Qtc. Pt told this editorial writer that she is not suicidal. She reports she just want to stay here for 2 days and leave. Pt reports she currently does not have a place to live and has been staying with friends. She reports she has a job and does not want to go to [facility] program at this time. This editorial writer offered to be referred to detox, which at the moment pt was in agreement. Past Psychiatric History: Inpt: M5 2019 Medical Evaluation Reviewed: Yes Qtc prolongation on 04/14 Qtc 557ms, K 3.3, no levels of Mg were obtained. Will order new EKG with K+ and Mg levels. [facility] Medical History Acute anxiety Anxiety Atypical bipolar disorder Depression Depression Drug-induced psychotic disorder History of drug dependence/abuse Opiate withdrawal PTSD (post-traumatic stress disorder) Family History: UNABLE TO OBTAIN Social History: PATIENT HAS A HISTORY OF ADDICTION REPORTED THIS HISTORY OF BIPOLAR DISORDER. SHE STATES SHE HAD BEEN LIVING WITH HER GRANDMOTHER. THERE IS A CONCERN BOYFRIEND Diagnostics Vital Signs (24Hr): Vital Signs - 24 hr 04/16/22 06:40 04/16/22 07:37 Temperature 97.5 F 97.7 F Pulse Rate 70 98 Respiratory Rate 17 18 Blood Pressure 91/50 L 104/72 Pulse Oximetry 95 98 Oxygen Delivery Method Room Air Room Air BMI result Body Mass Index 29.2 Labs 04/14/22 18:26 04/14/22 18:25 Labs: Laboratory Results - last 48 hr 04/14/22 04/14/22 04/14/22 18:25 18:25 18:26 WBC 5.4 RBC 3.91 L Hgb 9.4 L Hct 30.8 L MCV 78.8 L MCH 24.0 L MCHC 30.5 L RDW 16.5 H Plt Count 218 MPV 10.8 Immature Gran % (Auto) 0.2 Neut % (Auto) 53.9 Lymph % (Auto) 35.9 [place] % (Auto) 7.4 Eos % (Auto) 2.2 Baso % (Auto) 0.4 Lymph # (Auto) 2.0 [place] # (Auto) 0.4 Eos # (Auto) 0.1 Baso # (Auto) 0.0 Abs Immat Gran (auto) 0.01 Absolute Neuts (auto) 2.9 Absolute Nucleated RBC 0.000 Nucleated RBC % (auto) 0.0 Sodium 140 Potassium 3.3 Chloride 105 Carbon Dioxide 24 Anion Gap 14 BUN 16 Creatinine 0.86 Estim Creat Clear Calc 91.7 Estimated GFR > 60 Random Glucose 134 H Calcium 9.2 D Total Bilirubin 0.3 AST 35 H ALT 24 Alkaline Phosphatase 65 Total Protein 7.2 Albumin 4.0 Urine Color Urine Appearance Urine pH Ur Specific [place] Urine Protein Urine Glucose (UA) Urine Ketones Urine Blood Urine Nitrite Ur Leukocyte Esterase Urine RBC Urine WBC Urine WBC Clumps Ur Squamous Epith Cells Ur Transition Epith Cell Ur Renal Epithelial Cell Calcium Oxalate Crystal Leucine Crystals Cystine Crystals Tyrosine Crystals Other Crystals Urine Bacteria Urine Parasites Bilirubin Casts Epithelial Casts Fatty Casts Hyaline Casts Granular Casts Waxy Casts Broad Casts RBC Casts WBC Casts Other Casts Urine Trichomonas Urine Yeast Urine Test Urine Opiates Screen Urine Fentanyl Screen Ur Barbiturates Screen Ur Phencyclidine Scrn Ur Amphetamines Screen U Benzodiazepines Scrn Urine Cocaine Screen U Marijuana (THC) Screen Ethyl Alcohol T.pallidum Ab (EIA) Nonreactive COVID-19 (AUTUMN) COVID-19 Clin Com 04/14/22 04/14/22 04/15/22 18:26 18:26 17:52 WBC RBC Hgb Hct MCV MCH MCHC RDW Plt Count MPV Immature Gran % (Auto) Neut % (Auto) Lymph % (Auto) [place] % (Auto) Eos % (Auto) Baso % (Auto) Lymph # (Auto) [place] # (Auto) Eos # (Auto) Baso # (Auto) Abs Immat Gran (auto) Absolute Neuts (auto) Absolute Nucleated RBC Nucleated RBC % (auto) Sodium Potassium Chloride Carbon Dioxide Anion Gap BUN Creatinine Estim Creat Clear Calc Estimated GFR Random Glucose Calcium Total Bilirubin AST ALT Alkaline Phosphatase Total Protein Albumin Urine Color Urine Appearance Urine pH Ur Specific [place] Urine Protein Urine Glucose (UA) Urine Ketones Urine Blood Urine Nitrite Ur Leukocyte Esterase Urine RBC Urine WBC Urine WBC Clumps Ur Squamous Epith Cells Ur Transition Epith Cell Ur Renal Epithelial Cell Calcium Oxalate Crystal Leucine Crystals Cystine Crystals Tyrosine Crystals Other Crystals Urine Bacteria Urine Parasites Bilirubin Casts Epithelial Casts Fatty Casts Hyaline Casts Granular Casts Waxy Casts Broad Casts RBC Casts WBC Casts Other Casts Urine Trichomonas Urine Yeast Urine Test NEGATIVE Urine Opiates Screen Urine Fentanyl Screen Ur Barbiturates Screen Ur Phencyclidine Scrn Ur Amphetamines Screen U Benzodiazepines Scrn Urine Cocaine Screen U Marijuana (THC) Screen Ethyl Alcohol < 10 T.pallidum Ab (EIA) COVID-19 (AUTUMN) Negative COVID-19 Clin Com See Note 04/15/22 04/15/22 04/15/22 17:52 17:52 17:52 WBC RBC Hgb Hct MCV MCH MCHC RDW Plt Count MPV Immature Gran % (Auto) Neut % (Auto) Lymph % (Auto) [place] % (Auto) Eos % (Auto) Baso % (Auto) Lymph # (Auto) [place] # (Auto) Eos # (Auto) Baso # (Auto) Abs Immat Gran (auto) Absolute Neuts (auto) Absolute Nucleated RBC Nucleated RBC % (auto) Sodium Potassium Chloride Carbon Dioxide Anion Gap BUN Creatinine Estim Creat Clear Calc Estimated GFR Random Glucose Calcium Total Bilirubin AST ALT Alkaline Phosphatase Total Protein Albumin Urine Color Yellow Cancelled Urine Appearance Hazy Cancelled Urine pH 6.5 Cancelled Ur Specific [place] 1.015 Cancelled Urine Protein 30 (1+) H Cancelled Urine Glucose (UA) Negative Cancelled Urine Ketones Negative Cancelled Urine Blood Large (3+) H Cancelled Urine Nitrite Negative Cancelled Ur Leukocyte Esterase Moderate (2+) H Cancelled Urine RBC >20 H Cancelled Urine WBC 11-20 H Cancelled Urine WBC Clumps Cancelled Ur Squamous Epith Cells >20 Cancelled Ur Transition Epith Cell Cancelled Ur Renal Epithelial Cell Cancelled Calcium Oxalate Crystal Cancelled Leucine Crystals Cancelled Cystine Crystals Cancelled Tyrosine Crystals Cancelled Other Crystals Cancelled Urine Bacteria 2+ Cancelled Urine Parasites Cancelled Bilirubin Casts Cancelled Epithelial Casts Cancelled Fatty Casts Cancelled Hyaline Casts 0-2 Cancelled Granular Casts Cancelled Waxy Casts Cancelled Broad Casts Cancelled RBC Casts Cancelled WBC Casts Cancelled Other Casts Cancelled Urine Trichomonas Cancelled Urine Yeast Cancelled Urine Test Urine Opiates Screen POSITIVE H Urine Fentanyl Screen POSITIVE H Ur Barbiturates Screen Not Detected Ur Phencyclidine Scrn Not Detected Ur Amphetamines Screen Not Detected U Benzodiazepines Scrn Not Detected Urine Cocaine Screen POSITIVE H U Marijuana (THC) Screen POSITIVE H Ethyl Alcohol T.pallidum Ab (EIA) COVID-19 (AUTUMN) COVID-19 Clin Com Mental Status Exam Mental Status Exam Narrative: Appearance: wearing hospital gown, disheveled, in some distress due to opioid withdrawal Behavior: minimally cooperative, irritable at times Psychomotor: no agitation or retardation noted Speech: clear, normal rate/rhythm/volume, spontaneous TP: linear TC: feeling unwell due to opioid use disorder, wanting to rest for few days but no interest in [facility] or higher level of care at this point. Mood: tired Affect: congruent SI: none HI: none Delusions: none Insight/judgment: poor x 2. Alert, oriented x 3. Grossly intact to conversational testing. Medications Medications Current Medications Clonidine HCl (Clonidine Hcl 0.1 Mg Tablet) 0.1 mg PO TID PRN; Protocol PRN Reason: Anxiety Last Admin: 04/15/22 02:51 Dose: 0.1 mg Gabapentin (Gabapentin 400 Mg Capsule) 800 mg PO TID [facility] Last Admin: 04/16/22 09:31 Dose: 800 mg Hydroxyzine HCl (Hydroxyzine Hcl 50 Mg Tablet) 50 mg PO TID [facility] Last Admin: 04/16/22 09:31 Dose: 50 mg Olanzapine (Olanzapine 10 Mg Tablet) 10 mg PO DAILY [facility] Last Admin: 01/18/23 09:32 Dose: 10 mg Pharmacy Consult (Consult Rx Perform Med Rec) 1 each MISCELLANE ONCE PRN PRN Reason: Consult order Topiramate (Topiramate 100 Mg Tablet) 100 mg PO DAILY [facility] Last Admin: 04/16/22 09:31 Dose: 100 mg Trazodone HCl (Trazodone Hcl 100 Mg Tablet) 200 mg PO BEDTIME [facility] Last Admin: 04/15/22 21:13 Dose: 200 mg Allergies Allergies Allergy/AdvReac Type Severity Reaction Status Date / Time No Known Allergies Allergy Verified 11/25/21 02:37 [No Known Allergies*] Assessment & Plan Assessment & Plan (1) Bipolar disorder: Status: Acute Code(s): F31.9 - Bipolar disorder, unspecified (2) Cocaine use disorder: Status: Acute Code(s): F14.10 - Cocaine abuse, uncomplicated (3) Opioid use disorder, moderate, dependence: Status: Acute Code(s): F11.20 - Opioid dependence, uncomplicated Plan Ms. Hollingsworth is a 36 year-old woman with hx of opioid use disorder, cocaine use disorder, Bipolar Disorder who self presented to [facility] ED on 04/14 reporting increase depression with suicidal ideation without a plan. Utox positive for opiates, fentanyl, cocaine, cannabinoids. Pt initially had agreed to be referred to CSS. Today, pt denies suicidal or homicidal ideation. She reports feeling unwell due to opioid withdrawal. She was given methadone 60mg po daily. She reports she used to be on methadone 200mg po daily but has not received it in about one week. On 04/14 Qtc prolonged 557ms, K 3.3, Mg not obtained. WIll check one EKG today with K, Mg. PLAN- Pt agrees to be referred to detox. No need for inpatient psychiatric admission as pt denies any safety concerns in terms of suicidal or homicidal ideation. Pt forthcoming in that she reports she mainly wants to rest for few days and leave. She declines further referrals for therapy or psychiatry. Total time managing care of this patient today __30__ minutes. Patient educated on: diagnosis, medication risk/benefits and substance abuse Informed Consent: understands
--- NOTE | 2022-04-16 14:45 | MHC.CARE ---
Pt pending transfer and admission to [facility] for inpatient level of care.
--- NOTE | 2022-04-16 14:57 | PM.EVENT ---
Event Note Date of Service: 04/16/22 Event Note: Addiction note: Methadone dose verified for patient at 200mg once daily Last dose verified as being administered 04/09/2022. Received methadone 40mg yesterday in ED. Seen by Recovery Support RN earlier in AM--reporting body aches, nausea, diaphoretic. Plan: Methadone 60mg administered mid morning. EKG reviewed--prolonged QTc--will need follow up EKG in AM prior to additional dosing Time Spent With Patient Time: Total time managing care of this patient today ____ minutes.
[2022-04-16 16:55] VITALS: BP 111/69; PULSE 85; RESP 17; TEMP 35.7; O2SAT 97
--- NOTE | 2022-04-16 17:15 | PC.ADMIT ---
Sangeeta is a 36-year-old female admitted from [facility] Pod to [facility] 04/16/22 1650, CV signed. Precipitants to admission include decompensation over the last 10 days and SI with plan to take a bunch of pills and not wake up. Psych dx includes unspecified bipolar disorder, opioid use disorder, cocaine use disorder. Tox screen positive for opiates, fentanyl, cocaine, THC. Upon arriving to the unit, pt was pleasant but asked to lay down and refused to participate in assessment. Per crisis eval, pt has been overwhelmed with stress after breaking up with her boyfriend. She reports using 1 bag of heroin and $100 worth of cocaine daily for the past 10 days, most recent use was 04/15/22. Pt endorses SI but no plan while on the unit, denies HI/AH/VH.
[2022-04-16 18:34] LABS: CT PCR NOT DETECTED (Not Detect.); NG PCR NOT DETECTED (Not Detect.)
[2022-04-16] MEDS: traZODone HCL 50 MG TABLET PO (21:55)
--- NOTE | 2022-04-17 08:59 | ECG_ITS ---
Test Reason : qt prolongation Blood Pressure : / mmHG Vent. Rate : 077 BPM Atrial Rate : 077 BPM P-R Int : 128 ms QRS Dur : 076 ms QT Int : 416 ms P-R-T Axes : 034 -26 017 degrees QTc Int : 470 ms Normal sinus rhythm Normal ECG When compared with ECG of 15-APR-2022 18:34, T wave inversion no longer evident in Anterior leads QT has shortened Referred By: Flower Donohue Electronically Signed By:LEON FERNANDES MD
[2022-04-17 09:00] VITALS: BP 118/81; PULSE 102; RESP 20; TEMP 36.6; O2SAT 98
[2022-04-17] MEDS: Topiramate 100 MG TABLET PO (09:09)
[2022-04-17] MEDS: hydrOXYzine HCL 50 MG TABLET PO (09:09)
[2022-04-17] MEDS: Gabapentin 400 MG CAPSULE 800 MG PO (09:09)
[2022-04-17] MEDS: OLANZapine 10 MG TABLET PO (09:09)
--- NOTE | 2022-04-17 09:29 | HO.PSYADMNOT ---
HPI Date of Service: 04/17/22 Chief Complaint: SI Sources of Information: patient interviewed, chart reviewed and crisis/core team assessment reviewed HPI Subjective Notes: Lozano Warning (given and shows understanding) Narrative: Ms. Hollingsworth is a 36 year-old woman with hx of Bipolar Disorder, opioid and cocaine use disorder who self presented to [facility] ED reporting increased depression without clear plan. Utox was positive for opiates, fentanyl, cocaine and cannabinoids. Pt reports she recently relapsed some weeks ago after 4 months of sobriety. Pt in the ED, presented with opioid withdrawal symptoms, irritable edge, at times declining to provide further information as she reported feeling unwell physically due to opioid withdrawal. Pt was seen by care team and had agreed to be referred to CSS or dual dx residential treatment. Pt seen in the ED yesterday and dispocision was to referred to detox as pt had denied any safety concerns and was frthcoming in that she mostly wanted to rest as she was experiencing opioid withdrawal symptoms. Pt had reported yesterday feeling anxious, not well due to opioid withdrawal including muscle aches, GI discomfort, anxious mood. Pt reports she receives methadone 200mg po daily but has not received it in past week. Her EKG on 04/14 shows Qtc prolongation of 557ms with K of 3.3, Mg not checked. This AM, new EKG shows normal Qtc 470ms, with K 3.7 and Mg 1.8. On the unit, Pt presents as agitated, demanding to be discharged, she reports she was mostly looking for some days to rest and then be discharged. Pt reports she has a job and wants to make it there. She denies suicidal or homicidal ideation. She was given methadone 110mg po daily. Her methadone clinic was informed of this morning's dosing. Her report this morning is same report she gave yesterday when this selling underwriter had recommended detox rather than inpatient admission. NARCAN ordered on discharge. Harm reduction discussed with pt. Pt also declines referrals for psych or dual dx. Past Psychiatric History: Inpt: 2019 Medical Evaluation Reviewed: Yes Qtc prolongation on 04/14 Qtc 557ms, K 3.3, no levels of Mg were obtained. EKG on 04/17 shows normal Qtc 470ms, K3.7, Mg 1.8. Past Psychiatric History: Inpatient:2019 OP:none Past medication trials:clonazepam Medical Evaluation Reviewed: Yes [facility] Medical History Acute anxiety Anxiety Atypical bipolar disorder Depression Depression Drug-induced psychotic disorder History of drug dependence/abuse Opiate withdrawal PTSD (post-traumatic stress disorder) Family History: UNABLE TO OBTAIN Social History: PATIENT HAS A HISTORY OF ADDICTION REPORTED THIS HISTORY OF BIPOLAR DISORDER. SHE STATES SHE HAD BEEN LIVING WITH HER GRANDMOTHER. THERE IS A CONCERN BOYFRIEND Diagnostics Vital Signs (24Hr): Vital Signs - 24 hr 04/16/22 16:55 Temperature 96.3 F L Pulse Rate 85 Respiratory Rate 17 Blood Pressure 111/69 Pulse Oximetry 97 Oxygen Delivery Method Room Air BMI result Body Mass Index 29.2 Labs 04/14/22 18:26 04/14/22 18:25 Labs: Laboratory Results - last 48 hr 04/14/22 04/15/22 04/15/22 18:25 17:52 17:52 Urine Color Urine Appearance Urine pH Ur Specific [place] Urine Protein Urine Glucose (UA) Urine Ketones Urine Blood Urine Nitrite Ur Leukocyte Esterase Urine RBC Urine WBC Urine WBC Clumps Ur Squamous Epith Cells Ur Transition Epith Cell Ur Renal Epithelial Cell Calcium Oxalate Crystal Leucine Crystals Cystine Crystals Tyrosine Crystals Other Crystals Urine Bacteria Urine Parasites Bilirubin Casts Epithelial Casts Fatty Casts Hyaline Casts Granular Casts Waxy Casts Broad Casts RBC Casts WBC Casts Other Casts Urine Trichomonas Urine Yeast Urine Test NEGATIVE Urine Opiates Screen POSITIVE H Urine Fentanyl Screen POSITIVE H Ur Barbiturates Screen Not Detected Ur Phencyclidine Scrn Not Detected Ur Amphetamines Screen Not Detected U Benzodiazepines Scrn Not Detected Urine Cocaine Screen POSITIVE H U Marijuana (THC) Screen POSITIVE H T.pallidum Ab (EIA) Nonreactive Chlam trachomat DNA PCR N.gonorrhoeae DNA (PCR) 04/15/22 04/15/22 04/16/22 17:52 17:52 16:41 Urine Color Yellow Cancelled Urine Appearance Hazy Cancelled Urine pH 6.5 Cancelled Ur Specific [place] 1.015 Cancelled Urine Protein 30 (1+) H Cancelled Urine Glucose (UA) Negative Cancelled Urine Ketones Negative Cancelled Urine Blood Large (3+) H Cancelled Urine Nitrite Negative Cancelled Ur Leukocyte Esterase Moderate (2+) H Cancelled Urine RBC >20 H Cancelled Urine WBC 11-20 H Cancelled Urine WBC Clumps Cancelled Ur Squamous Epith Cells >20 Cancelled Ur Transition Epith Cell Cancelled Ur Renal Epithelial Cell Cancelled Calcium Oxalate Crystal Cancelled Leucine Crystals Cancelled Cystine Crystals Cancelled Tyrosine Crystals Cancelled Other Crystals Cancelled Urine Bacteria 2+ Cancelled Urine Parasites Cancelled Bilirubin Casts Cancelled Epithelial Casts Cancelled Fatty Casts Cancelled Hyaline Casts 0-2 Cancelled Granular Casts Cancelled Waxy Casts Cancelled Broad Casts Cancelled RBC Casts Cancelled WBC Casts Cancelled Other Casts Cancelled Urine Trichomonas Cancelled Urine Yeast Cancelled Urine Test Urine Opiates Screen Urine Fentanyl Screen Ur Barbiturates Screen Ur Phencyclidine Scrn Ur Amphetamines Screen U Benzodiazepines Scrn Urine Cocaine Screen U Marijuana (THC) Screen T.pallidum Ab (EIA) Chlam trachomat DNA PCR NOT DETECTED N.gonorrhoeae DNA (PCR) NOT DETECTED Meds/Allergies Meds Home Medications Medication Instructions Recorded Confirmed Type methadone 10 mg/mL oral 30 mg PO DAILY 10/06/20 10/06/20 History concentrate (Methadone Intensol) atomoxetine 100 mg capsule 1 cap PO DAILY 04/15/22 04/15/22 History (Strattera) clonazepam 0.5 mg tablet 1 tab PO BID PRN anxiety 04/15/22 04/15/22 History clonidine HCl 0.1 mg tablet 1 tab PO TID PRN Anxiety 04/15/22 04/15/22 History gabapentin 800 mg tablet 1 tab PO TID 04/15/22 04/15/22 History hydroxyzine pamoate 50 mg capsule 1 cap PO TID 04/15/22 04/15/22 History loratadine 10 mg tablet 1 tab PO DAILY 04/15/22 04/15/22 History olanzapine 10 mg tablet 1 tab PO DAILY 04/15/22 04/15/22 History oxcarbazepine 300 mg tablet 1 tab PO BID 04/15/22 04/15/22 History topiramate 100 mg tablet 1 tab PO DAILY 04/15/22 04/15/22 History topiramate 50 mg tablet 50 mg PO DAILY 04/15/22 04/15/22 History trazodone 100 mg tablet 2 tab PO BEDTIME 04/15/22 04/15/22 History Allergies Allergies Allergy/AdvReac Type Severity Reaction Status Date / Time No Known Allergies Allergy Verified 11/25/21 02:37 [No Known Allergies*] Mental Status Exam Mental Status Exam Narrative: Appearance: wearing hospital gown, disheveled, in some distress due to opioid withdrawal Behavior: minimally cooperative, irritable at times Psychomotor: no agitation or retardation noted Speech: clear, normal rate/rhythm/volume, spontaneous TP: linear TC: feeling unwell due to opioid use disorder, wanting to rest for few days but no interest in CSS or higher level of care at this point. Mood: upset Affect: dysphoric SI: none HI: none Delusions: none Insight/judgment: poor x 2. Alert, oriented x 3. Grossly intact to conversational testing. Assessment & Plan Patient educated on: diagnosis and substance abuse Reason for continued inpatient stay Substantial Risk for: stable for discharge Statement Statement: I have reviewed the history and physical and performed a pertinent examination on my patient. No changes have occurred unless specified. If the History and Physical was not performed prior to admission, the Hospitalist's service will be consulted for completing the admission physical. Time Spent With Patient Time: Total time managing care of this patient today ____ minutes.
[2022-04-17] MEDS: methADONE HCl 20 MG/2 ML ORAL.CONC 110 MG PO (09:51)
--- NOTE | 2022-04-17 10:00 | PM.PSYDC ---
DS: Providers Provider Date of Service: 04/17/22 Date of admission: 04/16/22 16:31 Primary care physician: BHARAT Coleman DS: Medications Discharge Medications Home Medications: Home Medications Medication Instructions Recorded Confirmed methadone 10 mg/mL oral 30 mg PO DAILY 10/06/20 10/06/20 concentrate (Methadone Intensol) atomoxetine 100 mg capsule 1 cap PO DAILY 04/15/22 04/15/22 (Strattera) clonazepam 0.5 mg tablet 1 tab PO BID PRN anxiety 04/15/22 04/15/22 clonidine HCl 0.1 mg tablet 1 tab PO TID PRN Anxiety 04/15/22 04/15/22 gabapentin 800 mg tablet 1 tab PO TID 04/15/22 04/15/22 hydroxyzine pamoate 50 mg capsule 1 cap PO TID 04/15/22 04/15/22 loratadine 10 mg tablet 1 tab PO DAILY 04/15/22 04/15/22 olanzapine 10 mg tablet 1 tab PO DAILY 04/15/22 04/15/22 oxcarbazepine 300 mg tablet 1 tab PO BID 04/15/22 04/15/22 topiramate 100 mg tablet 1 tab PO DAILY 04/15/22 04/15/22 topiramate 50 mg tablet 50 mg PO DAILY 04/15/22 04/15/22 trazodone 100 mg tablet 2 tab PO BEDTIME 04/15/22 04/15/22 Mental Status Exam Mental Status Exam Narrative: Appearance: wearing hospital gown, disheveled, in some distress due to opioid withdrawal Behavior: minimally cooperative, irritable at times Psychomotor: no agitation or retardation noted Speech: clear, normal rate/rhythm/volume, spontaneous TP: linear TC: feeling unwell due to opioid use disorder, wanting to rest for few days but no interest in [facility] or higher level of care at this point. Mood: upset Affect: dysphoric SI: none HI: none Delusions: none Insight/judgment: poor x 2. Alert, oriented x 3. Grossly intact to conversational testing. Data Data Completed and Pending Completed studies during hospitalization [Text1]: 04/14/22 04/14/22 04/14/22 18:25 18:25 18:26 WBC 5.4 RBC 3.91 L Hgb 9.4 L Hct 30.8 L MCV 78.8 L MCH 24.0 L MCHC 30.5 L RDW 16.5 H Plt Count 218 MPV 10.8 Immature Gran % (Auto) 0.2 Neut % (Auto) 53.9 Lymph % (Auto) 35.9 Buchanan % (Auto) 7.4 Eos % (Auto) 2.2 Baso % (Auto) 0.4 Lymph # (Auto) 2.0 Buchanan # (Auto) 0.4 Eos # (Auto) 0.1 Baso # (Auto) 0.0 Abs Immat Gran (auto) 0.01 Absolute Neuts (auto) 2.9 Absolute Nucleated RBC 0.000 Nucleated RBC % (auto) 0.0 Sodium 140 Potassium 3.3 Chloride 105 Carbon Dioxide 24 Anion Gap 14 BUN 16 Creatinine 0.86 Estim Creat Clear Calc 91.7 Estimated GFR > 60 Random Glucose 134 H Fasting Glucose Estimat Average Glucose Hemoglobin A1c % Calcium 9.2 D Magnesium Total Bilirubin 0.3 AST 35 H ALT 24 Alkaline Phosphatase 65 Total Protein 7.2 Albumin 4.0 Triglycerides Cholesterol LDL Cholesterol, Calc HDL Cholesterol TSH Urine Color Urine Appearance Urine pH Ur Specific Stites Urine Protein Urine Glucose (UA) Urine Ketones Urine Blood Urine Nitrite Ur Leukocyte Esterase Urine RBC Urine WBC Urine WBC Clumps Ur Squamous Epith Cells Ur Transition Epith Cell Ur Renal Epithelial Cell Calcium Oxalate Crystal Leucine Crystals Cystine Crystals Tyrosine Crystals Other Crystals Urine Bacteria Urine Parasites Bilirubin Casts Epithelial Casts Fatty Casts Hyaline Casts Granular Casts Waxy Casts Broad Casts RBC Casts WBC Casts Other Casts Urine Trichomonas Urine Yeast Urine Test Urine Opiates Screen Urine Fentanyl Screen Ur Barbiturates Screen Ur Phencyclidine Scrn Ur Amphetamines Screen U Benzodiazepines Scrn Urine Cocaine Screen U Marijuana (THC) Screen Ethyl Alcohol T.pallidum Ab (EIA) Nonreactive Chlam trachomat DNA PCR COVID-19 (AUTUMN) COVID-19 Clin Com N.gonorrhoeae DNA (PCR) 04/14/22 04/14/22 04/15/22 18:26 18:26 17:52 WBC RBC Hgb Hct MCV MCH MCHC RDW Plt Count MPV Immature Gran % (Auto) Neut % (Auto) Lymph % (Auto) Buchanan % (Auto) Eos % (Auto) Baso % (Auto) Lymph # (Auto) Buchanan # (Auto) Eos # (Auto) Baso # (Auto) Abs Immat Gran (auto) Absolute Neuts (auto) Absolute Nucleated RBC Nucleated RBC % (auto) Sodium Potassium Chloride Carbon Dioxide Anion Gap BUN Creatinine Estim Creat Clear Calc Estimated GFR Random Glucose Fasting Glucose Estimat Average Glucose Hemoglobin A1c % Calcium Magnesium Total Bilirubin AST ALT Alkaline Phosphatase Total Protein Albumin Triglycerides Cholesterol LDL Cholesterol, Calc HDL Cholesterol TSH Urine Color Urine Appearance Urine pH Ur Specific Stites Urine Protein Urine Glucose (UA) Urine Ketones Urine Blood Urine Nitrite Ur Leukocyte Esterase Urine RBC Urine WBC Urine WBC Clumps Ur Squamous Epith Cells Ur Transition Epith Cell Ur Renal Epithelial Cell Calcium Oxalate Crystal Leucine Crystals Cystine Crystals Tyrosine Crystals Other Crystals Urine Bacteria Urine Parasites Bilirubin Casts Epithelial Casts Fatty Casts Hyaline Casts Granular Casts Waxy Casts Broad Casts RBC Casts WBC Casts Other Casts Urine Trichomonas Urine Yeast Urine Test NEGATIVE Urine Opiates Screen Urine Fentanyl Screen Ur Barbiturates Screen Ur Phencyclidine Scrn Ur Amphetamines Screen U Benzodiazepines Scrn Urine Cocaine Screen U Marijuana (THC) Screen Ethyl Alcohol < 10 T.pallidum Ab (EIA) Chlam trachomat DNA PCR COVID-19 (AUTUMN) Negative COVID-19 Clin Com See Note N.gonorrhoeae DNA (PCR) 04/15/22 04/15/22 04/15/22 17:52 17:52 17:52 WBC RBC Hgb Hct MCV MCH MCHC RDW Plt Count MPV Immature Gran % (Auto) Neut % (Auto) Lymph % (Auto) Buchanan % (Auto) Eos % (Auto) Baso % (Auto) Lymph # (Auto) Buchanan # (Auto) Eos # (Auto) Baso # (Auto) Abs Immat Gran (auto) Absolute Neuts (auto) Absolute Nucleated RBC Nucleated RBC % (auto) Sodium Potassium Chloride Carbon Dioxide Anion Gap BUN Creatinine Estim Creat Clear Calc Estimated GFR Random Glucose Fasting Glucose Estimat Average Glucose Hemoglobin A1c % Calcium Magnesium Total Bilirubin AST ALT Alkaline Phosphatase Total Protein Albumin Triglycerides Cholesterol LDL Cholesterol, Calc HDL Cholesterol TSH Urine Color Yellow Cancelled Urine Appearance Hazy Cancelled Urine pH 6.5 Cancelled Ur Specific Stites 1.015 Cancelled Urine Protein 30 (1+) H Cancelled Urine Glucose (UA) Negative Cancelled Urine Ketones Negative Cancelled Urine Blood Large (3+) H Cancelled Urine Nitrite Negative Cancelled Ur Leukocyte Esterase Moderate (2+) H Cancelled Urine RBC >20 H Cancelled Urine WBC 11-20 H Cancelled Urine WBC Clumps Cancelled Ur Squamous Epith Cells >20 Cancelled Ur Transition Epith Cell Cancelled Ur Renal Epithelial Cell Cancelled Calcium Oxalate Crystal Cancelled Leucine Crystals Cancelled Cystine Crystals Cancelled Tyrosine Crystals Cancelled Other Crystals Cancelled Urine Bacteria 2+ Cancelled Urine Parasites Cancelled Bilirubin Casts Cancelled Epithelial Casts Cancelled Fatty Casts Cancelled Hyaline Casts 0-2 Cancelled Granular Casts Cancelled Waxy Casts Cancelled Broad Casts Cancelled RBC Casts Cancelled WBC Casts Cancelled Other Casts Cancelled Urine Trichomonas Cancelled Urine Yeast Cancelled Urine Test Urine Opiates Screen POSITIVE H Urine Fentanyl Screen POSITIVE H Ur Barbiturates Screen Not Detected Ur Phencyclidine Scrn Not Detected Ur Amphetamines Screen Not Detected U Benzodiazepines Scrn Not Detected Urine Cocaine Screen POSITIVE H U Marijuana (THC) Screen POSITIVE H Ethyl Alcohol T.pallidum Ab (EIA) Chlam trachomat DNA PCR COVID-19 (AUTUMN) COVID-19 Clin Com N.gonorrhoeae DNA (PCR) 04/16/22 04/17/22 04/17/22 16:41 09:04 09:04 WBC RBC Hgb Hct MCV MCH MCHC RDW Plt Count MPV Immature Gran % (Auto) Neut % (Auto) Lymph % (Auto) Buchanan % (Auto) Eos % (Auto) Baso % (Auto) Lymph # (Auto) Buchanan # (Auto) Eos # (Auto) Baso # (Auto) Abs Immat Gran (auto) Absolute Neuts (auto) Absolute Nucleated RBC Nucleated RBC % (auto) Sodium Pending Potassium Pending Chloride Pending Carbon Dioxide Pending Anion Gap Pending BUN Pending Creatinine Pending Estim Creat Clear Calc Pending Estimated GFR Pending Random Glucose Fasting Glucose Pending Estimat Average Glucose Pending Hemoglobin A1c % Pending Calcium Pending Magnesium Pending Total Bilirubin Pending AST Pending ALT Pending Alkaline Phosphatase Pending Total Protein Pending Albumin Pending Triglycerides Pending Cholesterol Pending LDL Cholesterol, Calc Pending HDL Cholesterol Pending TSH Pending Urine Color Urine Appearance Urine pH Ur Specific Stites Urine Protein Urine Glucose (UA) Urine Ketones Urine Blood Urine Nitrite Ur Leukocyte Esterase Urine RBC Urine WBC Urine WBC Clumps Ur Squamous Epith Cells Ur Transition Epith Cell Ur Renal Epithelial Cell Calcium Oxalate Crystal Leucine Crystals Cystine Crystals Tyrosine Crystals Other Crystals Urine Bacteria Urine Parasites Bilirubin Casts Epithelial Casts Fatty Casts Hyaline Casts Granular Casts Waxy Casts Broad Casts RBC Casts WBC Casts Other Casts Urine Trichomonas Urine Yeast Urine Test Urine Opiates Screen Urine Fentanyl Screen Ur Barbiturates Screen Ur Phencyclidine Scrn Ur Amphetamines Screen U Benzodiazepines Scrn Urine Cocaine Screen U Marijuana (THC) Screen Ethyl Alcohol T.pallidum Ab (EIA) Chlam trachomat DNA PCR NOT DETECTED COVID-19 (AUTUMN) COVID-19 Clin Com N.gonorrhoeae DNA (PCR) NOT DETECTED 04/15/22 18:20 Urine clean catch - Urine ortiz top Urine Culture - Preliminary No growth to date. DS: Summary Hospital Course Hospital Course: Ms. Hollingsworth is a 36 year-old woman with hx of Bipolar Disorder, opioid and cocaine use disorder who self presented to [facility] ED reporting increased depression without clear plan. Utox was positive for opiates, fentanyl, cocaine and cannabinoids. Pt reports she recently relapsed some weeks ago after 4 months of sobriety. Pt in the ED, presented with opioid withdrawal symptoms, irritable edge, at times declining to provide further information as she reported feeling unwell physically due to opioid withdrawal. Pt was seen by care team and had agreed to be referred to [facility] or dual dx residential treatment. Pt seen in the ED yesterday and dispocision was to referred to detox as pt had denied any safety concerns and was frthcoming in that she mostly wanted to rest as she was experiencing opioid withdrawal symptoms. Pt had reported yesterday feeling anxious, not well due to opioid withdrawal including muscle aches, GI discomfort, anxious mood. Pt reports she receives methadone 200mg po daily but has not received it in past week. Her EKG on 04/14 shows Qtc prolongation of 557ms with K of 3.3, Mg not checked. This AM, new EKG shows normal Qtc 470ms, with K 3.7 and Mg 1.8. On the unit, Pt presents as agitated, demanding to be discharged, she reports she was mostly looking for some days to rest and then be discharged. Pt reports she has a job and wants to make it there. She denies suicidal or homicidal ideation. She was given methadone 110mg po daily. Her methadone clinic was informed of this morning's dosing. Her report this morning is same report she gave yesterday when this field underwriter had recommended detox rather than inpatient admission. NARCAN ordered on discharge. Harm reduction discussed with pt. Pt also declines referrals for psych or dual dx treatment programs. Time Spent with Patient Time attestation: Total time managing care of this patient today ____ minutes. Discharge Plan Discharge Anticipated Discharge Date/Time: 04/17/22 10:04 Patient Disposition: Home, Self-Care Discharge Diagnosis: Bipolar Disorder Opioid Use disorder Referrals: [facility] [Provider Group] - 1 Week (walk in hours Thursday through Thursday 830am to 400 pm ) Kimberly Arellano PA [Primary Care Provider] - 1 Week Discharge Medications: Continued methadone [Methadone Intensol] 10 mg/mL Concentrate 30 mg PO DAILY clonidine HCl 0.1 mg tablet 1 tab PO TID PRN (Reason: Anxiety) hydroxyzine pamoate 50 mg capsule 1 cap PO TID olanzapine 10 mg tablet 1 tab PO DAILY gabapentin 800 mg tablet 1 tab PO TID trazodone 100 mg tablet 2 tab PO BEDTIME topiramate 100 mg tablet 1 tab PO DAILY clonazepam 0.5 mg tablet 1 tab PO BID PRN (Reason: anxiety) oxcarbazepine 300 mg tablet 1 tab PO BID loratadine 10 mg tablet 1 tab PO DAILY topiramate 50 mg tablet 50 mg PO DAILY atomoxetine [Strattera] 100 mg capsule 1 cap PO DAILY Discontinued omeprazole 20 mg capsule,delayed release(DR/EC) 1 cap PO DAILY PRN (Reason: Acid Reflux) lactulose 10 gram/15 mL solution 15 ml PO DAILY PRN (Reason: Constipation) Discharge Orders: Discharge Order (Routine); Ordered 04/17/22 Ordered By: Alicia Frausto Diet: Regular diet Activity on Discharge: As tolerated Stand Alone Forms: Patient Portal Discharge page, Community Support Care Plan Goals: 1. No SI/HI 2. Harm reduction discussed at length- given narcan on discharge Health Concerns: Follow up with PCP Plan of Treatment: 1. Take medications as prescribed 2. Go to nearest ED or call 911 in event of emergency. Assessment: Pt irritable, demanding to leave as she states she is not suicidal nor at any imminent risk of harm to self or others. Pt reports she has a job. Limited insight into substance use and effect on her mood, life. Pt declines any referrals for substance use treatment. Given narcan on discharge. Discharge Date/Time: 04/17/22 10:10
[2022-04-17 10:14] LABS: Alanine Aminotransferase 27 U/L (0-31); Albumin Level 3.6 g/dL (3.5-5.0); Alkaline Phosphatase 57 U/L (39-117); Anion Gap 12 (12-20); Aspartate Amino Transferase 26 U/L (5-31); Bilirubin Total 0.2 mg/dL (0.0-1.0); Blood Urea Nitrogen 10 mg/dL (9-16); Calcium 9.1 mg/dL (8.4-10.2); Carbon Dioxide 26 mmol/L (22-29); Chloride 105 mmol/L (96-108); Cholesterol 195 mg/dL; Creatinine Clr Calc Pharmacy 101.2; Estimated Average Glucose 103 mg/dL; Estimated Glomerular Filt Rate > 60; Glucose Fasting 89 mg/dL (60-99); HDL Cholesterol 22 mg/dL; Hemoglobin A1c % 5.2 %; Magnesium 1.8 mg/dL (1.6-2.6); Potassium 3.7 mmol/L (3.3-5.1); Sodium 139 mmol/L (135-145); Total Protein 6.6 g/dL (6.5-8.0); Triglycerides 459 mg/dL
--- NOTE | 2022-04-17 10:19 | PC.NURSE ---
Sangeeta was alert, agitated and demanding to leave the unit this morning. She verbalized I feel dope sick and you aren't helping me. I attempted to educate patient about elongated QTC (557) but she continued to yell over me. With much support she was able to cooperate with repeat ekg. (qtc 470) Flower Donohue informed and methadone 110mg ordered and given. Sangeeta continued to yell loudly on the unit and was seen by Alicia Frausto NP. Discharge was ordered and pt was discharged home after refusing prn ativan, narcan take home and refused review of discharge plan. Jeanie Dostal supercharger repair supervisor contacted out pt methadone clinic to report dosing this am . last dose letter given.
--- NOTE | 2022-04-17 10:24 | PC.NURSE ---
Patient Methadone dose information provided to [facility] [phone]. Spoke to Ilda Jaime career specialist. Informed patient is to be discharged, received 110mg Methadone this morning.
== END 2022-04-17 10:10 | disposition home or self-care (01) | DRG 753 ==
LOC: HO.ED 04-15 16:15 → HO.PADLT16 04-16 16:36
PROVIDERS: Internal Medicine; Admitting Provider Psychiatry & Neurology Psychiatry; Emergency Provider Emergency Medicine; PCP Physician Assistant; Visit Provider Social Worker
DX: F31.9 Bipolar disorder, unspecified (principal); R45.851 Suicidal ideations; Z91.14 Patient's other noncompliance with medication regimen; F11.23 Opioid dependence with withdrawal; F43.10 Post-traumatic stress disorder, unspecified; Z20.822 Contact with and (suspected) exposure to COVID-19; Z79.899 Other long term (current) drug therapy
CPT/HCPCS: 0353U; 36415; 80053; 80061; 80307; 81001; 81025; 82077; 83036; 83735; 84443; 85025; 86780; 87086; 87635; 93005; 96372; 99285; J0696; J2060; S9485

== ENCOUNTER 2022-04-20 10:25 | Emergency (ER) | payer MEDICAID, SELFPAY ==
--- NOTE | 2022-04-20 10:32 | ECG_ITS ---
Test Reason : PSYCH Blood Pressure : / mmHG Vent. Rate : 074 BPM Atrial Rate : 074 BPM P-R Int : 132 ms QRS Dur : 086 ms QT Int : 490 ms P-R-T Axes : 037 -25 -12 degrees QTc Int : 544 ms Normal sinus rhythm Nonspecific T wave abnormality Abnormal ECG When compared with ECG of 17-APR-2022 09:32, QT has lengthened Referred By: Lakshmi Christensen Electronically Signed By:DOMINGO JIMENEZ
[2022-04-20 10:34] VITALS: BP 116/86; PULSE 67; RESP 18; TEMP 36.9; O2SAT 96; BMI 29.2
--- NOTE | 2022-04-20 10:49 | PC.NURSE ---
Arrived via ambulance secondary for vauge SI w/o plan. Per pt: she goes to [facility] for MAT. DOSE: 110mg PO Daily- last dose was 04/18. Contact made to Clinic at [phone], Methadone dose 110mg PO last dose 0945am on 04/18/22. Verified by Cameron JI. Pharmacy notified at [phone]
--- NOTE | 2022-04-20 10:59 | HE.PHANOTE ---
Methadone Verification Pharmacy has received the methadone verification form from Rachel. Patient last received methadone 110 mg on 04/18/22 @ 0945 at [facility]. Confirmed with GARRISON Barnes at the clinic. Sumaya Melton, MarilynD
--- NOTE | 2022-04-20 11:10 | PC.NURSE ---
Provider at bedside.
--- NOTE | 2022-04-20 11:10 | PC.NURSE ---
Addendum entered by Rachel Schuler 04/20/22 11:11: Pt became verbally abusive during provider assessment. Original Note: Pt refused PA assessment; you're annoying go away, you're asking too many questions .
--- NOTE | 2022-04-20 11:12 | ED_ITS ---
HPI - Psych General Chief Complaint: Psychiatric Symptoms Stated Complaint: crisis SI Time Seen by Provider: 04/20/22 10:32 Source: patient and EMS Mode of arrival: EMS Limitations: other ( Very vague and poor historian and agitated) History of Present Illness HPI Narrative: 36-year-old female with a past medical history of bipolar disorder, opioid and cocaine use disorder, anxiety, depression, PTSD currently on methadone presenting to the ER with complaints of increased anxiety / depression with SI thoughts. Reports that she would like to take a bottle sleeping pills and not wake up. although reports she has not tried this and no other plan in place. She denies any homicidal ideations, auditory or visual hallucinations. She reports she injects heroin and cocaine and injected 2 bags of IV heroin prior to arrival. Reports that she has not been on her psychiatric medications for longer than 3 weeks. patient on my exam reported that I was asking her to many questions about why she was here and about her possible STD. She stated leave me alone go away your fucking annoying . I explained to her that I have to ask for these questions to figure out what is going on with her and if she needs treatment then I need to ask for these questions and patient continued to be aggressive therefore I walked away to let the patient calm down. MD complaint: suicidal ideation, feels depressed, anxiety and substance abuse Onset (ago): year(s) Duration: constant and getting worse History of same: Yes Relieving factors: none Exacerbating factors: drug use Context: recent drug abuse and not taking psychiatric medications Associated psychiatric symptoms: depression, suicidal ideation ( reports she would love to take a bottle of pills to sleep and never wake up) and racing thoughts Associated symptoms: other ( patient reports she thinks she has an STD reports that she went to [facility] and they told her she possibly had gonorrhea and Trichomonas although does not treated.) Treatments prior to arrival: none If self harm: admits thoughts of self harm Related Data Home Medications Medication Instructions Recorded Confirmed methadone 10 mg/mL oral 110 mg PO DAILY 10/06/20 04/20/22 concentrate (Methadone Intensol) atomoxetine 100 mg capsule 1 cap PO DAILY 04/15/22 04/20/22 (Strattera) clonazepam 0.5 mg tablet 1 tab PO BID PRN anxiety 04/15/22 04/20/22 clonidine HCl 0.1 mg tablet 1 tab PO TID PRN Anxiety 04/15/22 04/20/22 gabapentin 800 mg tablet 1 tab PO TID 04/15/22 04/20/22 hydroxyzine pamoate 50 mg capsule 1 cap PO TID 04/15/22 04/20/22 loratadine 10 mg tablet 1 tab PO DAILY 04/15/22 04/20/22 olanzapine 10 mg tablet 1 tab PO DAILY 04/15/22 04/20/22 oxcarbazepine 300 mg tablet 1 tab PO BID 04/15/22 04/20/22 topiramate 100 mg tablet 1 tab PO DAILY 04/15/22 04/20/22 topiramate 50 mg tablet 50 mg PO DAILY 04/15/22 04/20/22 trazodone 100 mg tablet 2 tab PO BEDTIME 04/15/22 04/20/22 Allergies Allergy/AdvReac Type Severity Reaction Status Date / Time No Known Allergies Allergy Verified 11/25/21 02:37 [No Known Allergies*] Review of Systems Review of Systems: Constitutional : No Fever, No Chills ENT/Mouth : No Ear Pain, No Nasal Congestion, No sore throat Eyes: No Eye Pain, No Swelling, No Redness Cardiovascular : No Chest Pain, No SOB Respiratory : No Cough, No Sputum, No Dyspnea Gastrointestinal : No ingestions, No Nausea, No Vomiting, No Diarrhea, No Hematochezia, No Melena Genitourinary : + Thoughts of STDs, No abnormal discharge or lesions or sores to vaginal area/rectum, No Dysuria, No Urinary Frequency, No Hematuria Musculoskeletal : No Myalgias Skin : No Skin Lesions, No rash Neuro : No Weakness, No Numbness, No Paresthesias, No Dizziness, No Headache Psych : + Anxiety, + Depression, + SI, + thoughts of self injury, No HI, No AVH, Heme/Lymph: No Lymphadenopathy Endocrine : No Polyuria, No Polydipsia Yes all other systems are reviewed and are negative [facility] Past Medical History Attestation statement: The following information was validated with the patient. Source: old records reviewed and nursing notes reviewed Medical History Acute anxiety Anxiety Atypical bipolar disorder Depression Depression Drug-induced psychotic disorder History of drug dependence/abuse Opiate withdrawal PTSD (post-traumatic stress disorder) Social History Social History Household Members: None Household Members Other:: grandmother Housing: Unknown / Unable to assess Do you presently have visiting nurse or other home services: No Unable to assess alcohol history related to: Unknown 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: unknown Patient Tobacco Use Status: Tobacco use Unknown Cigarette Packs Per Day: 1.5 Cigarettes Per Day: 30.0 Years Smoked: 23 Smoked in Last 30 Days: Yes Second Hand Smoke Exposure: Yes Use of substances other than those prescribed or required for medical reasons: Yes Substance Use Type: Crack/Cocaine, Heroin, Marijuana and Opiates Advance Directives: No Advance Directives Information Provided: No Patient : No service: No Current occupational status: unemployed Sexual orientation: Straight/Heterosexual Physical Exam Vital Signs: Vital Signs: Last Vital Signs Temp 98.5 F 04/20/22 10:34 Pulse 67 04/20/22 10:34 Resp 18 04/20/22 14:00 BP 116/86 04/20/22 10:34 Pulse Ox 96 04/20/22 10:34 O2 Del Method 04/20/22 10:34 BMI result Body Mass Index 29.2 vital signs have been reviewed as normal and appeared to be correct. Blood pressure normal. Heart rate normal. Respiration rate normal. Temperature normal. Oxygen saturation normal. Appearance: Alert. Oriented X3. No acute distress. Head: Normal external exam. Normocephalic. Atraumatic. Eyes: PERRLA. EOMI. Conjunctiva and sclera normal. Eyelids normal. ENT: EAC normal. TM's Normal. Pharynx normal. Uvula midline. Moist mucous membranes. No trismus noted. No drooling noted. No muffled voice noted. Neck: Normal inspection. Neck supple. FROM. No adenopathy. Thyroid Normal. No meningeal signs. No neck mass noted. CVS: Normal heart rate and rhythm. Heart sound normal. No murmurs noted. Pulses normal throughout. Respiratory: No respiratory distress. Painless inspiration. Breath sounds normal. No wheezes/rales/rhonchi noted. Chest nontender. No accessory muscle usage noted or decreased air movement noted. Abdomen: Soft and nontender. Bowel sounds normal in all 4 quadrants. No distention noted. No organomegaly noted. No visible injury noted. Back: No CVA tenderness. Full range of motion noted. Skin: Skin warm and dry. Normal skin color. Normal skin turgor. No rashes/lesions/lacerations noted. Extremities: No lower extremity edema. Extremities exhibit normal range of motion. Extremities nontender. Neuro: Oriented X 3. No motor deficit. No sensory deficit. Reflexes normal. CN's II-XII intact bilaterally? Psych: Dishevel, poor grooming, not kept well, mental status normal, speech and movement normal, speech pressured, Patient aggressive and agitated. Is not cooperative. Course Course Course Narrative: 10:35pm - 36-year-old female with a past medical history of bipolar disorder, opioid and cocaine use disorder, anxiety, depression, PTSD currently on methadone presenting to the ER with complaints of increased anxiety / depression with SI thoughts. Reports that she would like to take a bottle sleeping pills and not wake up. although reports she has not tried this and no other plan in place. She denies any homicidal ideations, auditory or visual hallucinations. She reports she injects heroin and cocaine and injected 2 bags of IV heroin prior to arrival. Reports that she has not been on her psychiatric medications for longer than 3 weeks. patient reports she also has possible gonorrhea and Trichomonas that has been untreated. Is very vague about this. Very aggressive and agitated on my exam. She stated leave me alone go away your fucking annoying . I explained to her that I have to ask for these questions to figure out what is going on with her and if she needs treatment then I need to ask for these questions and patient continued to be aggressive therefore I walked away to let the patient calm down. Plan: Labs, EKG, UA, UHCG, gonorrhea chlamydia urine, Trichomonas/ bacterial vaginosis swab when the patient allows us to swab her. Order her a diet and re-evaluate. Reevaluation(s) Reevaluation #1: labs reviewed patient mild anemia with H&H of 9.9/34.0. Carbon dioxide 20. AST 75. ALT 40. Total protein 8.5. Otherwise all other labs are within normal limits. Patient negative for EtOH. Patient negative for COVID. Therefore at this time patient medically cleared and placed in Physician observation because the patient needs more time to be evaluated by the care team. Will continue to monitor. Time: 13:22 Reevaluation #2: Care team evaluated the patient and she patient reports she just wants to go home she does not feel suicidal she does has increased anxiety depression and is not interested in any detox at this time. Therefore she denied an actual SI with plan to myself, the care team and the RN Rachel that is in the pod. Therefore she is safe to go home. Time: 14:57 Medications Administered Generic Name Dose Route Start Last Admin Trade Name Freq PRN Reason Stop Dose Admin Loratadine 10 mg 04/20/22 12:15 04/20/22 12:44 Loratadine 10 Mg Tablet PO 10 mg DAILY JAIR Administration Methadone HCl 110 mg 04/20/22 12:15 04/20/22 12:45 Methadone Hcl 20 Mg/2 Ml Oral.Conc PO 110 mg DAILY JAIR Administration Olanzapine 10 mg 04/20/22 12:15 04/20/22 12:43 Olanzapine 10 Mg Tablet PO 10 mg DAILY JAIR Administration Oxcarbazepine 300 mg 04/20/22 12:15 04/20/22 12:44 Oxcarbazepine 300 Mg Tablet PO 300 mg BID JAIR Administration Topiramate 50 mg 04/20/22 12:15 04/20/22 12:43 Topiramate 25 Mg Tablet PO 50 mg DAILY JAIR Administration Topiramate 100 mg 04/20/22 12:15 04/20/22 12:43 Topiramate 100 Mg Tablet PO 100 mg DAILY JAIR Administration Discontinued Medications Generic Name Dose Route Start Last Admin Trade Name Freq PRN Reason Stop Dose Admin Acetaminophen 975 mg 04/20/22 12:21 04/20/22 12:44 Acetaminophen 325 Mg Tablet PO 04/20/22 12:22 975 mg ONCE ONE Administration Medical Decision Making Admission/Observation Consideration of admission/observation: Escalation of care including admission/observation considered Lab Data MDM Lab Attestation statement: I reviewed the patient's lab results. 04/20/22 12:25 04/20/22 12:00 Labs: Lab Results 04/20/22 04/20/22 04/20/22 Range/Units 11:14 12:00 12:00 WBC (4.8-10.8) X10*3/uL RBC (4.20-5.50) X10*6/uL Hgb (12.0-16.0) g/dl Hct (37.0-47.0) % MCV (80.0-98.0) fL MCH (27.0-33.0) pg MCHC (31.0-35.0) g/dl RDW (11.0-16.0) % Plt Count (160-400) X10*3/uL MPV (9.4-12.3) fL Immature Gran % (Auto) (0.0-0.4) % Neut % (Auto) (45-73) % Lymph % (Auto) (20-40) % Kidder % (Auto) (2-11) % Eos % (Auto) (0-4) % Baso % (Auto) (0-2) % Lymph # (Auto) (1.2-4.9) X10*3/uL Kidder # (Auto) (0.1-1.2) X10*3/uL Eos # (Auto) (0.0-0.4) X10*3/uL Baso # (Auto) (0.0-0.2) X10*3/uL Abs Immat Gran (auto) (0.00-0.03) X10*3/uL Absolute Neuts (auto) (2.0-8.3) x10*3/uL Absolute Nucleated RBC (0.0-0.012) X10*3/uL Nucleated RBC % (auto) (0.0-0.2) /100WBC Sodium 139 (135-145) mmol/L Potassium 3.9 (3.3-5.1) mmol/L Chloride 106 (96-108) mmol/L Carbon Dioxide 20 L (22-29) mmol/L Anion Gap 17 (12-20) BUN 15 (9-16) mg/dL Creatinine 0.86 (0.5-1.4) mg/dL Estim Creat Clear Calc 91.7 Estimated GFR > 60 Random Glucose 106 (60-115) mg/dL Calcium 9.9 D (8.4-10.2) mg/dL Magnesium 2.1 (1.6-2.6) mg/dL Total Bilirubin 0.5 (0.0-1.0) mg/dL AST 75 H (5-31) U/L ALT 40 H (0-31) U/L Alkaline Phosphatase 65 (39-117) U/L Total Protein 8.5 H (6.5-8.0) g/dL Albumin 4.7 (3.5-5.0) g/dL Lipase 11 (8-78) U/L Beta HCG, Quant < 2 mIU/mL Ethyl Alcohol mg/dL COVID-19 (AUTUMN) Negative (Negative) COVID-19 Clin Com See Note 04/20/22 04/20/22 Range/Units 12:00 12:25 WBC 6.1 (4.8-10.8) X10*3/uL RBC 4.05 L (4.20-5.50) X10*6/uL Hgb 9.9 L (12.0-16.0) g/dl Hct 34.0 L (37.0-47.0) % MCV 84.0 D (80.0-98.0) fL MCH 24.4 L (27.0-33.0) pg MCHC 29.1 L (31.0-35.0) g/dl RDW 17.3 H (11.0-16.0) % Plt Count 338 D (160-400) X10*3/uL MPV 10.1 (9.4-12.3) fL Immature Gran % (Auto) 0.5 H (0.0-0.4) % Neut % (Auto) 63.7 (45-73) % Lymph % (Auto) 27.0 (20-40) % Kidder % (Auto) 5.7 (2-11) % Eos % (Auto) 2.6 (0-4) % Baso % (Auto) 0.5 (0-2) % Lymph # (Auto) 1.7 (1.2-4.9) X10*3/uL Kidder # (Auto) 0.4 (0.1-1.2) X10*3/uL Eos # (Auto) 0.2 (0.0-0.4) X10*3/uL Baso # (Auto) 0.0 (0.0-0.2) X10*3/uL Abs Immat Gran (auto) 0.03 (0.00-0.03) X10*3/uL Absolute Neuts (auto) 3.9 (2.0-8.3) x10*3/uL Absolute Nucleated RBC 0.000 (0.0-0.012) X10*3/uL Nucleated RBC % (auto) 0.0 (0.0-0.2) /100WBC Sodium (135-145) mmol/L Potassium (3.3-5.1) mmol/L Chloride (96-108) mmol/L Carbon Dioxide (22-29) mmol/L Anion Gap (12-20) BUN (9-16) mg/dL Creatinine (0.5-1.4) mg/dL Estim Creat Clear Calc Estimated GFR Random Glucose (60-115) mg/dL Calcium (8.4-10.2) mg/dL Magnesium (1.6-2.6) mg/dL Total Bilirubin (0.0-1.0) mg/dL AST (5-31) U/L ALT (0-31) U/L Alkaline Phosphatase (39-117) U/L Total Protein (6.5-8.0) g/dL Albumin (3.5-5.0) g/dL Lipase (8-78) U/L Beta HCG, Quant mIU/mL Ethyl Alcohol < 10 mg/dL COVID-19 (AUTUMN) (Negative) COVID-19 Clin Com Independent Interpretation I performed an independent interpretation of an: EKG ( Normal sinus rhythm with ventricular rate of 74 with nonspecific T-wave abnormalities no acute ischemic change are noted with the QT that has prolonged at 522 milliseconds. Similar compared to prior EKGs.) External Record Review External record reviewed: Inpatient record Discharge Plan Discharge Clinical Impression: Depression, Bipolar disorder, Polysubstance abuse, Acute anxiety Patient Disposition: Home, Self-Care Instructions: Anxiety (ED), Bipolar Disorder (ED), Depression (ED), Polysubstance Abuse (ED) Prescriptions: No Action methadone [Methadone Intensol] 10 mg/mL Concentrate 110 mg PO DAILY clonidine HCl 0.1 mg tablet 1 tab PO TID PRN (Reason: Anxiety) hydroxyzine pamoate 50 mg capsule 1 cap PO TID olanzapine 10 mg tablet 1 tab PO DAILY gabapentin 800 mg tablet 1 tab PO TID trazodone 100 mg tablet 2 tab PO BEDTIME topiramate 100 mg tablet 1 tab PO DAILY clonazepam 0.5 mg tablet 1 tab PO BID PRN (Reason: anxiety) oxcarbazepine 300 mg tablet 1 tab PO BID loratadine 10 mg tablet 1 tab PO DAILY topiramate 50 mg tablet 50 mg PO DAILY atomoxetine [Strattera] 100 mg capsule 1 cap PO DAILY Referrals: Kimberly Arellano PA [Primary Care Provider] - 2 days Interventions: [place]-Suicide Risk Severity Scale Last Done: 04/20/22 10:37
--- NOTE | 2022-04-20 11:17 | PC.NURSE ---
Pt refusing blood draw until I get my meds pt eduated to medical clearance process, verbalized understanding. Continues to refuse.
[2022-04-20 11:33] LABS: COVID-19 Test Negative (Negative); IDNOW Serial# 6674DD1D
--- NOTE | 2022-04-20 11:48 | PC.NURSE ---
Kimberly from recovery at bedside. Pt willing to allow staff to obtain blood draw.
--- NOTE | 2022-04-20 12:01 | MHC.RECOVRN ---
Met with pt in 7 after pt became verbally abusive to provider and refused lab work. Pt sitting in chair, awake, alert, engages in conversation but guarded. Pt states multiple times I feel like shit. Educated pt regarding need for lab work prior to methadone administration. Pt agreeable to blood draw. RN aware.
--- NOTE | 2022-04-20 12:21 | PC.NURSE ---
Med rec approved by Provider. Awaiting pharmacy verification for meds now.
[2022-04-20 12:23] LABS: Alanine Aminotransferase 40 U/L (0-31); Albumin Level 4.7 g/dL (3.5-5.0); Alkaline Phosphatase 65 U/L (39-117); Anion Gap 17 (12-20); Aspartate Amino Transferase 75 U/L (5-31); Bilirubin Total 0.5 mg/dL (0.0-1.0); Blood Urea Nitrogen 15 mg/dL (9-16); Calcium 9.9 mg/dL (8.4-10.2); Carbon Dioxide 20 mmol/L (22-29); Chloride 106 mmol/L (96-108); Creatinine Clr Calc Pharmacy 91.7; Estimated Glomerular Filt Rate > 60; Glucose Random 106 mg/dL (60-115); Lipase 11 U/L (8-78); Magnesium 2.1 mg/dL (1.6-2.6); Potassium 3.9 mmol/L (3.3-5.1); Sodium 139 mmol/L (135-145); Total Protein 8.5 g/dL (6.5-8.0)
--- NOTE | 2022-04-20 12:26 | PHA.MEDREC ---
Pharmacy Consult ? Medication Reconciliation Pharmacy has completed the medication reconciliation. Reviewed med rec based on last admission on 04/15/22.
[2022-04-20 12:29] LABS: HCG Quantitative < 2 mIU/mL
[2022-04-20 12:30] LABS: Ethanol < 10 mg/dL
[2022-04-20 12:31] LABS: Basophils Percent Auto 0.5 % (0-2); Eosinophils Absolute Auto 0.2 X10*3/uL (0.0-0.4); Eosinophils Percent Auto 2.6 % (0-4); Hemoglobin 9.9 g/dl (12.0-16.0); Imm Gran Abs Auto 0.03 X10*3/uL (0.00-0.03); Imm Gran Pct Auto 0.5 % (0.0-0.4); Lymphocytes Absolute Auto 1.7 X10*3/uL (1.2-4.9); Mean Corpuscular HGB Conc 29.1 g/dl (31.0-35.0); Mean Corpuscular Hemoglobin 24.4 pg (27.0-33.0); Mean Platelet Volume 10.1 fL (9.4-12.3); Monocytes Absolute Auto 0.4 X10*3/uL (0.1-1.2); Monocytes Percent Auto 5.7 % (2-11); Neutrophils Absolute Auto 3.9 x10*3/uL (2.0-8.3); Neutrophils Percent Auto 63.7 % (45-73); Platelet Count 338 X10*3/uL (160-400); Red Blood Count 4.05 X10*6/uL (4.20-5.50); Red Cell Distribution Width 17.3 % (11.0-16.0); White Blood Count 6.1 X10*3/uL (4.8-10.8)
[2022-04-20] MEDS: Topiramate 100 MG TABLET PO (12:43)
[2022-04-20] MEDS: OLANZapine 10 MG TABLET PO (12:43)
[2022-04-20] MEDS: Topiramate 25 MG TABLET 50 MG PO (12:43)
[2022-04-20] MEDS: OXcarbazepine 300 MG TABLET PO (12:44)
[2022-04-20] MEDS: Loratadine 10 MG TABLET PO (12:44)
[2022-04-20] MEDS: Acetaminophen 325 MG TABLET 975 MG PO (12:44)
[2022-04-20] MEDS: methADONE HCl 20 MG/2 ML ORAL.CONC 110 MG PO (12:45)
[2022-04-20 14:00] VITALS: RESP 18
--- NOTE | 2022-04-20 14:48 | PC.NURSE ---
Care team at bedside for eval.
== END 2022-04-20 15:13 | disposition home or self-care (01) ==
PROVIDERS: Physician Assistant Medical; Emergency Provider Emergency Medicine; PCP Physician Assistant
DX: F33.1 Major depressive disorder, recurrent, moderate (principal); R45.851 Suicidal ideations; F41.1 Generalized anxiety disorder; F43.0 Acute stress reaction; F14.10 Cocaine abuse, uncomplicated; F11.10 Opioid abuse, uncomplicated; F17.210 Nicotine dependence, cigarettes, uncomplicated; Z20.822 Contact with and (suspected) exposure to COVID-19; Z20.828 Contact with and (suspected) exposure to other viral communicable diseases; Z71.6 Tobacco abuse counseling; Z79.899 Other long term (current) drug therapy
CPT/HCPCS: 36415; 80053; 82077; 83690; 83735; 84702; 85025; 87635; 93005; 99285

== ENCOUNTER 2022-04-27 14:55 | Emergency (ER) | payer MEDICAID, SELFPAY ==
--- NOTE | 2022-04-27 14:58 | ED_ITS ---
HPI - Female Genitourinary General Chief complaint: Urogenital-Female <Edel Pruitt CNP - Last Filed: 04/27/22 15:02> Stated complaint: STD test <Edel Pruitt CNP - Last Filed: 04/27/22 15:02> Source: patient <Marlene Contreras NP - Last Filed: 04/27/22 17:57> Mode of arrival: ambulatory <Marlene Contreras NP - Last Filed: 04/27/22 17:57> Limitations: no limitations <Marlene Contreras NP - Last Filed: 04/27/22 17:57> History of Present Illness HPI Narrative: 36-year-old female with history of bipolar disorder, opiate use disorder who presents to the emergency room to request treatment for chlamydia and Trichomonas. Patient reports that she was seen at a secondary facility and was tested for STDs. She was called today and informed that she was positive for both chlamydia and Trichomonas. She was not treated for these. Patient reports that she has had several days of vaginal odor, vaginal discharge, dysuria and suprapubic discomfort. No abdominal pain, back pain, fever or vomiting. <Marlene Contreras NP - Last Filed: 04/27/22 17:57> Related Data Home medications: Home Medications Medication Instructions Recorded Confirmed methadone 10 mg/mL oral 110 mg PO DAILY 10/06/20 04/20/22 concentrate (Methadone Intensol) atomoxetine 100 mg capsule 1 cap PO DAILY 04/15/22 04/20/22 (Strattera) clonazepam 0.5 mg tablet 1 tab PO BID PRN anxiety 04/15/22 04/20/22 clonidine HCl 0.1 mg tablet 1 tab PO TID PRN Anxiety 04/15/22 04/20/22 gabapentin 800 mg tablet 1 tab PO TID 04/15/22 04/20/22 hydroxyzine pamoate 50 mg capsule 1 cap PO TID 04/15/22 04/20/22 loratadine 10 mg tablet 1 tab PO DAILY 04/15/22 04/20/22 olanzapine 10 mg tablet 1 tab PO DAILY 04/15/22 04/20/22 oxcarbazepine 300 mg tablet 1 tab PO BID 04/15/22 04/20/22 topiramate 100 mg tablet 1 tab PO DAILY 04/15/22 04/20/22 topiramate 50 mg tablet 50 mg PO DAILY 04/15/22 04/20/22 trazodone 100 mg tablet 2 tab PO BEDTIME 04/15/22 04/20/22 Previous Rx's Medication Instructions Recorded doxycycline monohydrate 100 mg 100 mg PO BID #14 caps 04/27/22 capsule metronidazole 500 mg tablet 500 mg PO BID 7 days #14 tabs 04/27/22 <Edel Pruitt CNP - Last Filed: 04/27/22 15:02> Allergies/Adverse reactions: Allergies Allergy/AdvReac Type Severity Reaction Status Date / Time No Known Allergies Allergy Verified 11/25/21 02:37 [No Known Allergies*] <Edel Pruitt CNP - Last Filed: 04/27/22 15:02> Review of Systems Review of Systems: Yes all other systems are reviewed and are negative <Nasir Contreras NP - Last Filed: 04/27/22 17:57> Constitutional: Constitutional: Reports no additional constitutional complaints, Denies body ache(s), Denies chills, Denies fever(s), Denies headache(s) and Denies weakness <Marlene Contreras NP - Last Filed: 04/27/22 17:57> Eyes: Eyes: Reports no additional eye complaints and Denies change in vision <Marlene Contreras NP - Last Filed: 04/27/22 17:57> ENT: Reports system reviewed and no additional complaints, except as documented, Denies dizziness, Denies headache(s), Denies nasal congestion, Denies nasal discharge and Denies neck pain <Marlene Contreras NP - Last Filed: 04/27/22 17:57> Cardiovascular: Cardiovascular: Reports no additional cardiovascular complaint s, Denies chest pain, Denies leg edema and Denies dyspnea <Marlene Contreras NP - Last Filed: 04/27/22 17:57> Respiratory: Respiratory: Reports no additional respiratory complaints, Denies cough and Denies dyspnea <Marlene Contreras NP - Last Filed: 04/27/22 17:57> Gastrointestinal: Gastrointestinal: Reports no additional gastrointestinal complaints, Denies abdominal pain, Denies diarrhea, Denies nausea and Denies vomiting <Marlene Contreras NP - Last Filed: 04/27/22 17:57> Genitourinary: Genitourinary: Reports no additional female genitourinary complaints, Reports dysuria, Reports pelvic pain, Denies urinary incontinence, Reports vaginal discharge and Reports vaginal odor <Marlene Contreras NP - Last Filed: 04/27/22 17:57> Musculoskeletal: Musculoskeletal: Reports no additional musculoskeletal complaints, Denies back pain, Denies arthralgias, Denies joint swelling, Denies neck pain, Denies numbness and Denies tingling <Marlene Contreras NP - Last Filed: 04/27/22 17:57> Integumentary/Breasts: Skin/Breast: Reports system reviewed and no additional complaints, except as docu and Denies rash <Marlene Contreras NP - Last Filed: 04/27/22 17:57> Neurologic: Reports system reviewed and no additional complaints, except as documented, Denies Abnormal speech present, Denies dizziness, Denies headache(s), Denies numbness, Denies tingling and Denies weakness <Marlene Contreras NP - Last Filed: 04/27/22 17:57> [facility] Past Medical History Attestation statement: The following information was validated with the patient. <Marlene Contreras NP - Last Filed: 04/27/22 17:57> Source: old records reviewed and nursing notes reviewed <Marlene Contreras NP - Last Filed: 04/27/22 17:57> Medical History: Medical History Acute anxiety Anxiety Atypical bipolar disorder Depression Depression Drug-induced psychotic disorder History of drug dependence/abuse Opiate withdrawal PTSD (post-traumatic stress disorder) <Edel Pruitt CNP - Last Filed: 04/27/22 15:02> Social History Social History: Social History Household Members: None Household Members Other:: grandmother Housing: Unknown / Unable to assess Do you presently have visiting nurse or other home services: No Unable to assess alcohol history related to: Unknown 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: unknown Patient Tobacco Use Status: Tobacco use Unknown Cigarette Packs Per Day: 1.5 Cigarettes Per Day: 30.0 Years Smoked: 23 Second Hand Smoke Exposure: Yes Substance Use Type: Crack/Cocaine, Heroin, Marijuana and Opiates Advance Directives: No Advance Directives Information Provided: Yes service: No Current occupational status: unemployed Sexual orientation: Straight/Heterosexual <Edel Pruitt CNP - Last Filed: 04/27/22 15:02> Physical Exam Vital Signs: Vital Signs: Last Vital Signs Temp 97.4 F 04/27/22 15:00 Pulse 90 04/27/22 15:00 Resp 18 04/27/22 15:00 BP 123/76 04/27/22 15:00 Pulse Ox 99 04/27/22 15:00 O2 Del Method 04/27/22 15:00 BMI result Body Mass Index 29.2 <Edel Pruitt CNP - Last Filed: 04/27/22 15:02> Vital Signs: Last Vital Signs Temp 97.4 F 04/27/22 15:00 Pulse 90 04/27/22 15:00 Resp 18 04/27/22 15:00 BP 123/76 04/27/22 15:00 Pulse Ox 99 04/27/22 15:00 O2 Del Method 04/27/22 15:00 BMI result Body Mass Index 29.2 <Marlene Contreras NP - Last Filed: 04/27/22 17:57> Const: General: cooperative, healthy appearing, comfortable and no acute distress <Marlene Contreras NP - Last Filed: 04/27/22 17:57> Orientation/consciousness: patient oriented x3 <Marlene Contreras NP - Last Filed: 04/27/22 17:57> Limitations: no limitations <Marlene Contreras NP - Last Filed: 04/27/22 17:57> HEENT: Head: Yes normal to inspection <Marlene Contreras NP - Last Filed: 04/27/22 17:57> Ears: hearing grossly normal bilaterally <Marlene Contreras NP - Last Filed: 04/27/22 17:57> General nose exam: Normal external nose present <Marlene Contreras MASTER TECHNICIAN - Last Filed: 04/27/22 17:57> Face and sinus: Yes normal facial exam <Marlene Contreras MASTER TECHNICIAN - Last Filed: 04/27/22 17:57> Mouth: Normal oral and palatal mucosa present <Marlene Contreras MASTER TECHNICIAN - Last Filed: 04/27/22 17:57> Throat: Yes posterior oropharynx normal <Marlene Contreras MASTER TECHNICIAN - Last Filed: 04/27/22 17:57> Eyes: General: appearance normal, both eyes and all related structures <Marlene Contreras MASTER TECHNICIAN - Last Filed: 04/27/22 17:57> Pupils: Equal, round and reactive pupils present <Marlene Contreras MASTER TECHNICIAN - Last Filed: 04/27/22 17:57> Neck: Neck: Yes normal visual inspection <Marlene Contreras MASTER TECHNICIAN - Last Filed: 04/27/22 17:57> Chest: Chest palpation & inspection: normal inspection of the chest <Marlene Contreras MASTER TECHNICIAN - Last Filed: 04/27/22 17:57> Resp: Effort & Inspection: normal respiratory effort <Marlene Contreras MASTER TECHNICIAN - Last Filed: 04/27/22 17:57> Auscultation: clear to auscultation bilaterally <Marlene Contreras MASTER TECHNICIAN - Last Filed: 04/27/22 17:57> Cardio: Rate: regular rate <Marlene Contreras MASTER TECHNICIAN - Last Filed: 04/27/22 17:57> Rhythm: regular rhythm <Marlene Contreras MASTER TECHNICIAN - Last Filed: 04/27/22 17:57> Peripheral pulses: Peripheral pulses 2+ throughout <Marlene Contreras MASTER TECHNICIAN - Last Filed: 04/27/22 17:57> GI: Inspection: Yes normal to inspection <Marlene Contreras MASTER TECHNICIAN - Last Filed: 04/27/22 17:57> Palpation (GI): Soft to palpation and Tenderness to palpation present (GI) (Mild. No rebound or guarding) suprapubicly <Marlene Contreras MASTER TECHNICIAN - Last Filed: 04/27/22 17:57> Auscultation: normal bowel sounds <Marlene Contreras MASTER TECHNICIAN - Last Filed: 04/27/22 17:57> : Other: Deferred pelvic exam <Marlene Contreras MASTER TECHNICIAN - Last Filed: 04/27/22 17:57> Back/Spine/Pelvis: Thoracic/Lumbar Spine: thoracic and lumbar spine normal to inspection <Marlene Contreras MASTER TECHNICIAN - Last Filed: 04/27/22 17:57> Skin: General skin exam: no rashes or lesions noted <Marlene Contreras MASTER TECHNICIAN - Last Filed: 04/27/22 17:57> Neuro: General: patient oriented x3, no focal motor deficits and normal sensation to monofilament <Marlene Contreras MASTER TECHNICIAN - Last Filed: 04/27/22 17:57> Cranial nerves: Yes Equal, round and reactive pupils present <Marlene Contreras MASTER TECHNICIAN - Last Filed: 04/27/22 17:57> Cognition (Neuro): normal cognition <Marlene Contreras MASTER TECHNICIAN - Last Filed: 04/27/22 17:57> Speech: No Abnormal speech present <Marlene Contreras MASTER TECHNICIAN - Last Filed: 04/27/22 17:57> Gait exam (Neuro): Normal gait present <Marlene Contreras MASTER TECHNICIAN - Last Filed: 04/27/22 17:57> Motor exam (neuro): 5/5 motor strength present throughout <Marlene Contreras MASTER TECHNICIAN - Last Filed: 04/27/22 17:57> Extrem: General: Yes normal to inspection <Marlene Contreras MASTER TECHNICIAN - Last Filed: 04/27/22 17:57> Course Course Course Narrative: This is an RME: Additional HPI, ROS, PE not included below will be deferred to primary provider. Patient is a 36-year-old female who presents to the emergency department requesting STI treatment. States that a few weeks ago she was tested while at [place] on vacation, she received a phone call earlier this week advising that she was positive for trichomoniasis and gonorrhea, and requires treatment. Complaining of dysuria, vaginal discharge, vaginal odor, bleeding outside of the time of her menses, LMP approximately 1 month ago, denies possibility of . Plan: urinalysis, ur preg, CT NG, bacterial vaginosis panel <Edel Pruitt CNP - Last Filed: 04/27/22 15:02> Reevaluation(s) Reevaluation #1: UA negative for infection. STI testing pending. Patient received ceftriaxone 500 mg IM. Will be discharged home with doxycycline and metronid azole. Reviewed worrisome signs and symptoms of when to return to the emergency room. Comfortable plan for discharge home. <Marlene Contreras NP - Last Filed: 04/27/22 17:57> Medications Administered Discontinued Medications Generic Name Dose Route Start Last Admin Trade Name Freq PRN Reason Stop Dose Admin Ceftriaxone Sodium 500 mg/ 0 mg 04/27/22 17:08 04/27/22 17:21 Lidocaine HCl 1 ml IM 04/27/22 17:09 1 kit ONCE ONE Administration <Edel Pruitt CNP - Last Filed: 04/27/22 15:02> Medications Administered Discontinued Medications Generic Name Dose Route Start Last Admin Trade Name Freq PRN Reason Stop Dose Admin Ceftriaxone Sodium 500 mg/ 0 mg 04/27/22 17:08 04/27/22 17:21 Lidocaine HCl 1 ml IM 04/27/22 17:09 1 kit ONCE ONE Administration <Marlene Contreras NP - Last Filed: 04/27/22 17:57> Medical Decision Making Medical Decision Making [facility] Narrative: 36-year-old female who reports she is positive for chlamydia and Trichomonas seeking treatment. Patient with complaints of suprapubic discomfort, dysuria, vaginal odor and discharge for the last few days. On exam abdomen soft and nontender. Overall patient nontoxic appearing. Declined pelvic exam. Patient reports testing positive at outside facility. Not available for review. Will send testing for UA, urine preg, BV panel, CTNG <Marlene Contreras NP - Last Filed: 04/27/22 17:57> Differential Diagnosis Differential Diagnoses: The differential diagnosis associated with the presentation includes <Marlene Contreras NP - Last Filed: 04/27/22 17:57> STI, UTI <Marlene Contreras NP - Last Filed: 04/27/22 17:57> Lab Data [facility] Lab Attestation statement: I reviewed the patient's lab results. <Marlene Contreras NP - Last Filed: 04/27/22 17:57> Labs: Lab Results 04/27/22 04/27/22 Range/Units 16:32 16:32 Urine Color Yellow Urine Appearance Clear Urine pH 7.0 (5.0-9.0) Ur Specific [place] 1.015 (1.005-1.025) Urine Protein Negative (Neg-Trace) mg/dL Urine Glucose (UA) Negative (Negative) mg/dL Urine Ketones Negative (Negative) mg/dL Urine Blood Moderate (2+) H (Negative) Urine Nitrite Negative (Negative) Ur Leukocyte Esterase Negative (Negative) Urine RBC 0-2 (0-2) /HPF Urine WBC 0-5 (0-5) /HPF Ur Squamous Epith Cells 3-5 (0-2) /HPF Urine Bacteria Trace (None Seen) Hyaline Casts 0-2 (0-2) /LPF Urine Test NEGATIVE (NEGATIVE) <Edel Pruitt CNP - Last Filed: 04/27/22 15:02> Lab Results 04/27/22 04/27/22 Range/Units 16:32 16:32 Urine Color Yellow Urine Appearance Clear Urine pH 7.0 (5.0-9.0) Ur Specific [place] 1.015 (1.005-1.025) Urine Protein Negative (Neg-Trace) mg/dL Urine Glucose (UA) Negative (Negative) mg/dL Urine Ketones Negative (Negative) mg/dL Urine Blood Moderate (2+) H (Negative) Urine Nitrite Negative (Negative) Ur Leukocyte Esterase Negative (Negative) Urine RBC 0-2 (0-2) /HPF Urine WBC 0-5 (0-5) /HPF Ur Squamous Epith Cells 3-5 (0-2) /HPF Urine Bacteria Trace (None Seen) Hyaline Casts 0-2 (0-2) /LPF Urine Test NEGATIVE (NEGATIVE) <Marlene Contreras NP - Last Filed: 04/27/22 17:57> Prescription Management I considered prescription management with: Antibiotic <Marlene Contreras NP - Last Filed: 04/27/22 17:57> Patient to be treated prophylactically with ceftriaxone 500 mg IM and sent home with doxycycline prophylactically as well as metronidazole <Marlene Contreras NP - Last Filed: 04/27/22 17:57> Discharge Plan Discharge Clinical Impression: Concern about STD in female without diagnosis <Edel Pruitt CNP - Last Filed: 04/27/22 15:02> Patient Disposition: Home, Self-Care <Edel Pruitt CNP - Last Filed: 04/27/22 15:02> Instructions: Sexually Transmitted Diseases (ED) <Edel Pruitt CNP - Last Filed: 04/27/22 15:02> Additional Instructions: We have tested you for gonorrhea, chlamydia, Trichomonas, bacterial vaginosis and yeast. We are treating you prophylactically for both chlamydia and Trichomonas. We will call you if your results are positive. Please avoid unprotected sex for 7 days. <Edel Pruitt CNP - Last Filed: 04/27/22 15:02> Prescriptions: New metronidazole 500 mg tablet 500 mg PO BID 7 Days Qty: 14 0RF doxycycline monohydrate 100 mg capsule 100 mg PO BID Qty: 14 0RF No Action methadone [Methadone Intensol] 10 mg/mL Concentrate 110 mg PO DAILY clonidine HCl 0.1 mg tablet 1 tab PO TID PRN (Reason: Anxiety) hydroxyzine pamoate 50 mg capsule 1 cap PO TID olanzapine 10 mg tablet 1 tab PO DAILY gabapentin 800 mg tablet 1 tab PO TID trazodone 100 mg tablet 2 tab PO BEDTIME topiramate 100 mg tablet 1 tab PO DAILY clonazepam 0.5 mg tablet 1 tab PO BID PRN (Reason: anxiety) oxcarbazepine 300 mg tablet 1 tab PO BID loratadine 10 mg tablet 1 tab PO DAILY topiramate 50 mg tablet 50 mg PO DAILY atomoxetine [Strattera] 100 mg capsule 1 cap PO DAILY <Edel Pruitt CNP - Last Filed: 04/27/22 15:02> Referrals: Kimberly Arellano PA [Primary Care Provider] - 1 week <Edel Pruitt CNP - Last Filed: 04/27/22 15:02> Interventions: ED Discharge Assessment Last Done: 04/27/22 17:40 <Edel Pruitt CNP - Last Filed: 04/27/22 15:02> Discharge Date/Time: 04/27/22 17:40 <Edel Pruitt, [employer] - Last Filed: 04/27/22 15:02>
[2022-04-27 15:00] VITALS: BP 123/76; PULSE 90; RESP 18; TEMP 36.3; O2SAT 99; BMI 29.2
[2022-04-27 16:44] LABS: Appearance Urine Clear; Color Urine Yellow; Glucose Urine UA Negative (Negative); Leukocyte Esterase Urine Negative (Negative); Nitrite Urine Negative (Negative); Specific Gravity - Urine 1.015 (1.005-1.025); UMIC TRIGGER UACC YES; Urine Blood Moderate (2+) (Negative); Urine Ketones Negative (Negative); Urine Protein Negative (Neg-Trace)
[2022-04-27 16:46] LABS: UPreg QC Valid YES; Urine Pregnancy NEGATIVE (NEGATIVE)
[2022-04-27 16:56] LABS: Bacteria Urine Trace (None Seen); Hyaline Casts Urine 0-2 /LPF (0-2); RBC Urine 0-2 /HPF (0-2); WBC Urine 0-5 /HPF (0-5)
[2022-04-27] MEDS: cefTRIAXone sodium 500 MG, Lidocaine HCl 1 % MPF 1 ML IM (17:21)
--- NOTE | 2022-04-27 17:38 | PC.NURSE ---
pt medicated per orders, pt performed self swab for BV pt verbalizes understanding of discharge instructiosn
[2022-04-28 05:32] LABS: CT PCR NOT DETECTED (Not Detect.); NG PCR NOT DETECTED (Not Detect.)
[2022-04-28 13:39] LABS: BV Int Neg Control Negative (Negative); BV Int Pos Control Positive (Positive)
== END 2022-04-27 17:40 | disposition home or self-care (01) ==
PROVIDERS: Nurse Practitioner Family; Emergency Provider Internal Medicine; PCP Physician Assistant
DX: N89.8 Other specified noninflammatory disorders of vagina (principal); Z20.2 Contact with and (suspected) exposure to infections with a predominantly sexual mode of transmission; F14.10 Cocaine abuse, uncomplicated; F11.10 Opioid abuse, uncomplicated; F19.10 Other psychoactive substance abuse, uncomplicated; Z79.899 Other long term (current) drug therapy
CPT/HCPCS: 0353U; 81001; 81025; 87480; 87510; 87660; 99283; J0696

== ENCOUNTER 2022-06-21 19:15 | Emergency (ER) | payer OTHER, MEDICAID, SELFPAY ==
[2022-06-21 19:26] VITALS: BP 110/78; PULSE 103; RESP 16; TEMP 36.4; O2SAT 96; BMI 25.7
--- NOTE | 2022-06-21 19:48 | ED.PSYCH ---
HPI - Psych General Chief Complaint: Psychiatric Symptoms Stated Complaint: CRISIS, PARANOIA Time Seen by Provider: 06/21/22 19:39 Source: patient Mode of arrival: ambulatory Limitations: no limitations History of Present Illness HPI Narrative: Patient comes emergency room complaining of relapsing using drugs. Patient states that she had a disagreement with her boyfriend. Patient is not suicidal or homicidal. Patient is seeking help for detox. Patient states she is extremely anxious and is requesting medication for anxiety. Related Data Home Medications Medication Instructions Recorded Confirmed clonidine HCl 0.1 mg tablet 1 tab PO TID PRN Anxiety 04/15/22 06/21/22 hydroxyzine pamoate 50 mg capsule 1 cap PO TID 04/15/22 06/21/22 oxcarbazepine 300 mg tablet 1 tab PO BID 04/15/22 06/21/22 topiramate 50 mg tablet 150 mg PO DAILY 04/15/22 06/21/22 trazodone 100 mg tablet 2 tab PO BEDTIME 04/15/22 06/21/22 atomoxetine 100 mg capsule 100 mg PO DAILY 06/21/22 06/21/22 (Strattera) clonazepam 0.5 mg tablet 0.5 mg PO BID PRN Anxiety 06/21/22 06/21/22 gabapentin 800 mg tablet 800 mg PO TID 06/21/22 06/21/22 olanzapine 10 mg tablet 10 mg PO BEDTIME 06/21/22 06/21/22 Allergies Allergy/AdvReac Type Severity Reaction Status Date / Time No Known Allergies Allergy Verified 11/25/21 02:37 [No Known Allergies*] Review of Systems Review of Systems: Constitutional : No Weight loss, No Fever, No Chills, No Night Sweats, No Fatigue, No Malaise ENT/Mouth : No Hearing loss, No Ear Pain, No Nasal Congestion, No Sinus Pain, No Hoarseness, No sore throat, No Rhinorrhea, No Swallowing Difficulty Eyes: No Eye Pain, No Swelling, No Redness, No Foreign Body, No Discharge, No Vision Changes Cardiovascular : No Chest Pain, No SOB, No Dyspnea on Exertion, No Orthopnea, No Edema, No Palpitations Respiratory : No Cough, No Sputum, No Wheezing, No Smoke Exposure, No Dyspnea Gastrointestinal : No Nausea, No Vomiting, No Diarrhea, No Constipation, No abdominal Pain, No Hematochezia, No Melena Genitourinary : no irregular bleeding, No Dysuria, No Urinary Frequency, No Hematuria, No Urinary Incontinence, No Urgency, No Flank Pain, No Urinary Flow Changes, No Hesitancy Musculoskeletal : No joint pain, No Myalgias, No Joint Swelling Skin : No Skin Lesions, No rash Neuro : No Weakness, No Numbness, No Paresthesias, No Loss of Consciousness, No Dizziness, No Headache Psych : Complaining of anxiety, No Depression, No SI/HI/AH/VH, admits to polysubstance abuse Heme/Lymph: No Bruising, No Bleeding,No Lymphadenopathy Endocrine : No Polyuria, No Polydipsia, No Temperature Intolerance [facility] Past Medical History Medical History Acute anxiety Anxiety Atypical bipolar disorder Depression Depression Drug-induced psychotic disorder History of drug dependence/abuse Opiate withdrawal PTSD (post-traumatic stress disorder) Social History Social History Household Members: None Household Members Other:: grandmother Housing: Unknown / Unable to assess Do you presently have visiting nurse or other home services: No Unable to assess alcohol history related to: Unknown 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: unknown Patient Tobacco Use Status: Tobacco use Unknown Cigarette Packs Per Day: 1.5 Cigarettes Per Day: 30.0 Years Smoked: 23 Second Hand Smoke Exposure: Yes Substance Use Type: Crack/Cocaine, Heroin, Marijuana and Opiates service: No Current occupational status: unemployed Sexual orientation: Straight/Heterosexual Physical Exam Vital Signs: Vital Signs: Last Vital Signs Temp 97.5 F 06/21/22 19:26 Pulse 103 H 06/21/22 19:26 Resp 16 06/21/22 19:26 BP 110/78 06/21/22 19:26 Pulse Ox 96 06/21/22 19:26 O2 Del Method Room Air 06/21/22 19:26 BMI result Body Mass Index 25.7 Const: Other: Appearance: Alert. Oriented X3. No acute distress. Eyes: Pupils equal, round and reactive to light. ENT: Pharynx normal. Neck: Normal inspection. Neck supple. No lymph nodes noted. No crepitus CVS: Normal heart rate and rhythm. Pulses normal. Normal S1 and S2 Respiratory: No respiratory distress. Breath sounds normal. No Wheezing. No rales Abdomen: Soft and nontender. No rigidity. No distention. Skin: Skin warm and dry. Normal skin color. Normal skin turgor. Multiple ecchymoses on upper extremities in different stages of healing, no cellulitis Extremities: No lower extremity edema. No Lacerations. No Rash Neuro: Oriented X 3. No motor deficit. No sensory deficit. Moving all extremities. No slurred speech. CN 2 through 12 grossly intact Psych: calm, cooperative, normal affect Course Course Course Narrative: -all labs pending -care team consult pending -patient is not suicidal or homicidal, not on a Section 12 -physician observation started at 19:50 Discharge Plan Discharge Clinical Impression: Anxiety, Substance abuse Patient Disposition: Still a Patient Prescriptions: No Action clonidine HCl 0.1 mg tablet 1 tab PO TID PRN (Reason: Anxiety) hydroxyzine pamoate 50 mg capsule 1 cap PO TID trazodone 100 mg tablet 2 tab PO BEDTIME oxcarbazepine 300 mg tablet 1 tab PO BID topiramate 50 mg tablet 150 mg PO DAILY olanzapine 10 mg tablet 10 mg PO BEDTIME clonazepam 0.5 mg tablet 0.5 mg PO BID PRN (Reason: Anxiety) gabapentin 800 mg tablet 800 mg PO TID atomoxetine [Strattera] 100 mg capsule 100 mg PO DAILY
[2022-06-21] MEDS: Ondansetron ODT 4 MG TAB.RAPDIS TRANSLINGU (19:57)
[2022-06-21] MEDS: diphenhydrAMINE HCL 25 MG CAPSULE 50 MG PO (19:57)
[2022-06-21] MEDS: LORazepam 1 MG TABLET 2 MG PO (19:57)
[2022-06-21 20:02] LABS: COVID-19 Test Negative (Negative); IDNOW Serial# BCCEAD1C
[2022-06-21 21:53] LABS: MANUAL DIFF FLAG NO
[2022-06-21 21:54] LABS: Basophils Percent Auto 0.3 % (0-2); Eosinophils Percent Auto 0.2 % (0-4); Hematocrit 35.5 % (37.0-47.0); Hemoglobin 10.9 g/dl (12.0-16.0); Imm Gran Abs Auto 0.02 X10*3/uL (0.00-0.03); Imm Gran Pct Auto 0.2 % (0.0-0.4); Lymphocytes Absolute Auto 1.8 X10*3/uL (1.2-4.9); Lymphocytes Percent Auto 15.6 % (20-40); Mean Corpuscular HGB Conc 30.7 g/dl (31.0-35.0); Mean Corpuscular Hemoglobin 23.6 pg (27.0-33.0); Mean Platelet Volume 9.3 fL (9.4-12.3); Monocytes Absolute Auto 0.6 X10*3/uL (0.1-1.2); Monocytes Percent Auto 4.8 % (2-11); Neutrophils Percent Auto 78.9 % (45-73); Platelet Count 436 X10*3/uL (160-400); Red Blood Count 4.61 X10*6/uL (4.20-5.50); Red Cell Distribution Width 17.5 % (11.0-16.0); White Blood Count 11.4 X10*3/uL (4.8-10.8)
[2022-06-21 22:20] LABS: Alanine Aminotransferase 29 U/L (0-31); Albumin Level 4.8 g/dL (3.5-5.0); Alkaline Phosphatase 76 U/L (39-117); Anion Gap 22 (12-20); Aspartate Amino Transferase 81 U/L (5-31); Bilirubin Total 0.7 mg/dL (0.0-1.0); Blood Urea Nitrogen 18 mg/dL (9-16); Calcium 9.5 mg/dL (8.4-10.2); Carbon Dioxide 19 mmol/L (22-29); Chloride 100 mmol/L (96-108); Creatinine Clr Calc Pharmacy 72.3; Estimated Glomerular Filt Rate > 60; Ethanol 77 mg/dL; Glucose Random 95 mg/dL (60-115); Magnesium 2.2 mg/dL (1.6-2.6); Potassium 3.9 mmol/L (3.3-5.1); Sodium 137 mmol/L (135-145); Total Protein 8.3 g/dL (6.5-8.0)
[2022-06-22 01:24] VITALS: BP 112/74; PULSE 90; RESP 15; TEMP 36.4; O2SAT 94
--- NOTE | 2022-06-22 06:17 | PC.NURSE ---
Patient slept through the night, Ativan 2 mg PO and Benadryl 50 mg administered @ 1956 with delayed effect, erratic behavior at the beginning but settle down later, med rec completed/pending provider's approval, patient is not here for crises but fro detox help, care consult ordered /pending evaluation, urine sample pending, remaining labs completed/resulted, VSS, will continue to monitor.
[2022-06-22 07:40] LABS: Appearance Urine Clear; Color Urine Dark Yellow; Glucose Urine UA Negative (Negative); Leukocyte Esterase Urine Trace (Negative); Nitrite Urine Negative (Negative); PH 5.5 (5.0-9.0); Specific Gravity - Urine >= 1.030 (1.005-1.025); UMIC TRIGGER UA YES; Urine Blood Negative (Negative); Urine Ketones 40 mg/dL (Negative); Urine Protein 30 (1+) mg/dL (Neg-Trace)
[2022-06-22 07:42] LABS: UPreg QC Valid YES; Urine Pregnancy NEGATIVE (NEGATIVE)
[2022-06-22 07:55] LABS: Bacteria Urine None Seen (None Seen); RBC Urine 0-2 /HPF (0-2)
[2022-06-22 08:15] LABS: Amphetamine Screen Urine Not Detected (Not Detect); Barbiturates, Urine Not Detected (Not Detect); Benzodiazepines Screen Urine Not Detected (Not Detect); Cannabinoid Screen Urine POSITIVE (Not Detect); Cocaine Screen Urine POSITIVE (Not Detect); Fentanyl, urine POSITIVE (Not Detect); Opiate Screen Urine POSITIVE (Not Detect); Phencyclidine Screen Urine Not Detected (Not Detect)
--- NOTE | 2022-06-22 09:53 | PC.NURSE ---
attempted to call methadone clinic to verify methadone dose x 4 attempts left message. [phone]
[2022-06-22] MEDS: Topiramate 25 MG TABLET 150 MG PO (11:58)
[2022-06-22] MEDS: OXcarbazepine 300 MG TABLET PO ×2 (11:58→20:01)
[2022-06-22] MEDS: methADONE HCl 20 MG/2 ML ORAL.CONC PO (11:58)
--- NOTE | 2022-06-22 12:55 | MHC.CARE ---
patient is an inpatient bed search.
[2022-06-22] MEDS: clonazePAM 0.5 MG TABLET PO (13:41)
[2022-06-22 15:04] LABS: CT PCR NOT DETECTED (Not Detect.); NG PCR NOT DETECTED (Not Detect.)
--- NOTE | 2022-06-22 15:26 | PC.NURSE ---
report received, previous RN states that pt just got to sleep. Will hold off on 1500 medications until pt is aware to maximize pts sleeping time and maintain calm mileu. Respirations even and unlabored, skin pwd, no apparent distress. continues plan of care for care team review
[2022-06-22] MEDS: cloNIDine HCL 0.1 MG TABLET PO (17:18)
--- NOTE | 2022-06-22 17:32 | PC.NURSE ---
pt woke up, requesting medication for anxiety. PRN clonidine provided. Pt is now sitting up in bed watching TV
[2022-06-22] MEDS: OLANZapine 10 MG TABLET PO (20:01)
[2022-06-22] MEDS: hydrOXYzine HCL 50 MG TABLET PO (20:01)
[2022-06-22] MEDS: traZODone HCL 100 MG TABLET 200 MG PO (20:01)
[2022-06-22] MEDS: Gabapentin 400 MG CAPSULE 800 MG PO (20:01)
[2022-06-22 20:24] VITALS: BP 100/67; PULSE 78; RESP 18; TEMP 36.6; O2SAT 96
[2022-06-22] MEDS: Nicotine 21 MG PATCH.TD24 TRANSDERMA (20:37)
--- NOTE | 2022-06-22 21:07 | PC.NURSE ---
Assumed care of pt. at 1900. Pt. lying in bed at this time, asking for night time meds. Pt. reports feeling safe while in the hospital. Pt. denies SI/HI at this time. Pt. requesting nicotine patch as she's craving a cigarette and generally smokes 1 pack a day. Order obtained from provider and medicated per MAY. Pt. now lying in bed. Pt. is pending inpatient bed. 15 minute check remain in place. Will continue to monitor.
--- NOTE | 2022-06-23 00:07 | PC.NURSE ---
Pt. up and awake asking for a snack, provided with pbj and some cranberry juice.
[2022-06-23 01:53] VITALS: BP 104/57; PULSE 88; RESP 17; TEMP 36.7; O2SAT 97
--- NOTE | 2022-06-23 06:13 | PC.NURSE ---
Addendum entered by Charlene Sánchez 06/23/22 06:15: [facility], phone number [phone] Original Note: Methadone dose verified by MANISHA Cary at [facility]. Last dose was on 06/19/2022 and was 140mg. Methadone verification faxed to pharmacy.
--- NOTE | 2022-06-23 06:34 | HE.PHANOTE ---
Methadone Verification Pharmacy has received the methadone verification from [facility]. Patient last received methadone 140 mg on 06/19/22 from [facility]. Infomation given by luis daniel RN at the clinic. Sumaya Melton, MarilynD
--- NOTE | 2022-06-23 07:43 | PC.NURSE ---
patient appears to remain asleep at present respirations are even and unlabored patient appears in no distress
[2022-06-23] MEDS: Topiramate 25 MG TABLET 150 MG PO (10:04)
[2022-06-23] MEDS: OXcarbazepine 300 MG TABLET PO (10:04)
[2022-06-23] MEDS: Gabapentin 400 MG CAPSULE 800 MG PO (10:04)
[2022-06-23] MEDS: hydrOXYzine HCL 50 MG TABLET PO (10:04)
[2022-06-23] MEDS: clonazePAM 0.5 MG TABLET PO (10:12)
[2022-06-23 10:33] VITALS: BP 110/71; PULSE 83; RESP 16; TEMP 36.8; O2SAT 98
[2022-06-23 10:57] LABS: BV Int Neg Control Negative (Negative); BV Int Pos Control Positive (Positive)
[2022-06-23] MEDS: methADONE HCl 20 MG/2 ML ORAL.CONC 140 MG PO (11:00)
--- NOTE | 2022-06-23 11:42 | PC.NURSE ---
Patient requesting to leave Care team notified who spoke to patient then Dr. Aguero. Dr. Aguero working on discharge.
== END 2022-06-23 12:03 | disposition home or self-care (01) ==
PROVIDERS: Emergency Medicine; Emergency Provider Emergency Medicine
DX: F41.9 Anxiety disorder, unspecified (principal); F19.10 Other psychoactive substance abuse, uncomplicated; N76.0 Acute vaginitis; Z20.822 Contact with and (suspected) exposure to COVID-19; F31.9 Bipolar disorder, unspecified; F43.10 Post-traumatic stress disorder, unspecified; F14.10 Cocaine abuse, uncomplicated; F11.20 Opioid dependence, uncomplicated; Z79.899 Other long term (current) drug therapy; F17.210 Nicotine dependence, cigarettes, uncomplicated
CPT/HCPCS: 0353U; 36415; 80053; 80307; 81001; 81025; 82077; 83735; 85025; 87480; 87510; 87635; 87660; 99285; S9485

== ENCOUNTER 2022-06-24 22:13 | Emergency (ER) | payer MEDICAID, SELFPAY ==
[2022-06-24 22:24] VITALS: BMI 26.6
--- NOTE | 2022-06-25 03:23 | ED.PSYCH ---
HPI - Psych General Chief Complaint: Psychiatric Symptoms Stated Complaint: hallucinations Time Seen by Provider: 06/24/22 22:23 Source: patient Mode of arrival: EMS Limitations: no limitations History of Present Illness HPI Narrative: 36-year-old female who presents emergency department for evaluation for abnormal behavior. The patient was recently in the emergency department from 06/21 to 06/24/2022 for suicidal ideation and relapse from using drugs. Patient was discharged yesterday morning and is in a methadone treatment program . She states that she was in a car with someone and she felt very unsafe then jumped out of the car. She states she then called the police. The acting erratically and called an ambulance and had her transported to the emergency department. The patient operative and stated that she did not want to be here, she states she called the police because she needed help and she felt unsafe, she told me that she was not suicidal or homicidal I had help from the police. The patient was in the emergency department [facility] and was very agitated and belligerent when I went back tear to talk to her. The patient did come into a room with the, sat down and to tell me her story. She states that she does not need any psychiatric care at this time. She denied being suicidal or homicidal. She states she just wants to go home and she has a court date today that she cannot miss. Related Data Home Medications Medication Instructions Recorded Confirmed clonidine HCl 0.1 mg tablet 1 tab PO TID PRN Anxiety 04/15/22 06/21/22 hydroxyzine pamoate 50 mg capsule 1 cap PO TID 04/15/22 06/21/22 oxcarbazepine 300 mg tablet 1 tab PO BID 04/15/22 06/21/22 topiramate 50 mg tablet 150 mg PO DAILY 04/15/22 06/21/22 trazodone 100 mg tablet 2 tab PO BEDTIME 04/15/22 06/21/22 atomoxetine 100 mg capsule 100 mg PO DAILY 06/21/22 06/21/22 (Strattera) clonazepam 0.5 mg tablet 0.5 mg PO BID PRN Anxiety 06/21/22 06/21/22 gabapentin 800 mg tablet 800 mg PO TID 06/21/22 06/21/22 olanzapine 10 mg tablet 10 mg PO BEDTIME 06/21/22 06/21/22 methadone 10 mg/mL oral 140 mg PO DAILY 06/23/22 06/23/22 concentrate (Methadose) Previous Rx's Medication Instructions Recorded metronidazole 500 mg tablet 500 mg PO BID 7 days #14 tabs 06/23/22 Allergies Allergy/AdvReac Type Severity Reaction Status Date / Time No Known Allergies Allergy Verified 11/25/21 02:37 [No Known Allergies*] Review of Systems Review of Systems: Yes all other systems are reviewed and are negative [facility] Past Medical History [facility] Narrative: Social history: The patient smokes 2-3 a. She denies alcohol use. The patient states that she relapsed and was using heroin and cocaine but is not reused since leaving the emergency department on 06/24/2022. Medical History Acute anxiety Anxiety Atypical bipolar disorder Depression Depression Drug-induced psychotic disorder History of drug dependence/abuse Opiate withdrawal PTSD (post-traumatic stress disorder) Social History Social History Household Members: None Household Members Other:: grandmother Housing: Unknown / Unable to assess Do you presently have visiting nurse or other home services: No Unable to assess alcohol history related to: Unknown 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: unknown Patient Tobacco Use Status: Tobacco use Unknown Cigarette Packs Per Day: 1.5 Cigarettes Per Day: 30.0 Years Smoked: 23 Second Hand Smoke Exposure: Yes Substance Use Type: Crack/Cocaine, Marijuana and Opiates Advance Directives: No Advance Directives Information Provided: Yes service: No Current occupational status: unemployed Sexual orientation: Straight/Heterosexual Physical Exam Vital Signs: Vital Signs: BMI result Body Mass Index 26.6 Const: Other: Initially the patient was very agitated and confrontational to the staff and security, after I was able to calm her down and sit in a room in talk to her, she was cooperative and was able to tell me that she is not suicidal or homicidal and just wants to go home. HEENT: Head: Yes normal to inspection, Yes normocephalic and Yes atraumatic Ears: external ears normal General nose exam: Normal external nose present Face and sinus: Yes normal facial exam Mouth: Normal oral and palatal mucosa present Throat: Yes posterior oropharynx normal Eyes: General: appearance normal, both eyes and all related structures Pupils: Equal, round and reactive pupils present Neck: Neck: Yes normal visual inspection, Yes no lymphadenopathy, Yes trachea midline and Yes supple Chest: Chest palpation & inspection: normal inspection of the chest and normal palpation of entire chest wall Resp: Effort & Inspection: normal respiratory effort and able to speak in complete sentences Auscultation: clear to auscultation bilaterally Cardio: Rate: regular rate Rhythm: regular rhythm Heart sounds: S1 normal heart sound present, S2 normal heart sound present and no murmurs GI: Inspection: Yes normal to inspection Palpation (GI): Soft to palpation, nontender and no guarding Auscultation: normal bowel sounds : General: Yes no CVA tenderness Back/Spine/Pelvis: Back: no CVA tenderness Skin: General skin exam: no rashes or lesions noted Neuro: Cranial nerves: Yes CN's II-XII intact bilaterally and Yes Equal, round and reactive pupils present Cognition (Neuro): normal cognition Motor exam (neuro): 5/5 motor strength present throughout Extrem: General: Yes normal to inspection Psych: Appearance: grossly normal Speech and movement: Normal speech and movement present Affect: normal affect Attitude: cooperative Thought process: Normal thought process present Thought content: Normal thought content present Medical Decision Making Medical Decision Making MDM Narrative: 36-year-old female with a history of anxiety, depression and bipolar disorder, polysubstance use disorder who recently relapsed use using heroin and cocaine, she was in the emergency department for 3 days and discharged yesterday morning. Patient states that she has not been drinking alcohol and did not use drugs prior to coming to the emergency. She states she just felt unsafe in the car that she was in, got out of the car and called the police for help. She denies being suicidal or homicidal pain and she is calm and cooperative. The patient will be discharged home. She was advised to continue taking her medications and to follow-up for further management of her substance use disorder. Discharge Plan Discharge Clinical Impression: Anxiety, Polysubstance use disorder, MDD (major depressive disorder), recurrent episode Patient Disposition: Home, Self-Care Additional Instructions: Please return to the emergency department if you feel like you are going to hurt herself or hurt anyone else. If you feel like your depression, anxiety or bipolar disorder or getting out of control, we can also help you. Continue taking medications as prescribed by your providers. Follow-up with your doctor in 2 days. Please return to the emergency department if your symptoms get worse or if you develop any symptoms that are concerning to you. Prescriptions: No Action clonidine HCl 0.1 mg tablet 1 tab PO TID PRN (Reason: Anxiety) hydroxyzine pamoate 50 mg capsule 1 cap PO TID trazodone 100 mg tablet 2 tab PO BEDTIME oxcarbazepine 300 mg tablet 1 tab PO BID topiramate 50 mg tablet 150 mg PO DAILY olanzapine 10 mg tablet 10 mg PO BEDTIME clonazepam 0.5 mg tablet 0.5 mg PO BID PRN (Reason: Anxiety) gabapentin 800 mg tablet 800 mg PO TID atomoxetine [Strattera] 100 mg capsule 100 mg PO DAILY methadone [Methadose] 10 mg/mL Concentrate 140 mg PO DAILY metronidazole 500 mg tablet 500 mg PO BID 7 Days Qty: 14 0RF Interventions: [place]-Suicide Risk Severity Scale Last Done: 06/24/22 22:43 ED Discharge Assessment Last Done: 06/24/22 22:43 Discharge Date/Time: 06/24/22 22:52
== END 2022-06-24 22:52 | disposition home or self-care (01) ==
PROVIDERS: Emergency Provider Emergency Medicine Emergency Medical Services
DX: F41.9 Anxiety disorder, unspecified (principal); F19.10 Other psychoactive substance abuse, uncomplicated; F33.9 Major depressive disorder, recurrent, unspecified; F11.20 Opioid dependence, uncomplicated; Z79.899 Other long term (current) drug therapy; F17.210 Nicotine dependence, cigarettes, uncomplicated
CPT/HCPCS: 99282; 99283

== ENCOUNTER 2022-07-07 14:02 | Emergency (ER) | payer MEDICAID, SELFPAY ==
[2022-07-07] VITALS (13 sets, daily range): BP systolic 127; BP diastolic 81; PULSE 83; RESP 16–20; TEMP 36.8; O2SAT 99; BMI 22.4
--- NOTE | 2022-07-07 14:49 | ED.GENADULT ---
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 Detect) Ur Barbiturates Screen Not Detected (Not Detect) Ur Phencyclidine Scrn Not Detected (Not Detect) Ur Amphetamines Screen POSITIVE H (Not Detect) U Benzodiazepines Scrn POSITIVE H (Not Detect) Urine Cocaine Screen POSITIVE H (Not Detect) U Marijuana (THC) Screen POSITIVE H (Not Detect) Ethyl Alcohol mg/dL Chlam trachomat DNA PCR (Not Detect.) COVID-19 (UATUMN) (Negative) COVID-19 Clin Com N.gonorrhoeae DNA (PCR) (Not Detect.) 07/07/22 Range/Units Unknown WBC (4.8-10.8) X10*3/uL RBC (4.20-5.50) X10*6/uL Hgb (12.0-16.0) g/dl Hct (37.0-47.0) % MCV (80.0-98.0) fL MCH (27.0-33.0) pg MCHC (31.0-35.0) g/dl RDW (11.0-16.0) % Plt Count (160-400) X10*3/uL MPV (9.4-12.3) fL Immature Gran % (Auto) (0.0-0.4) % Neut % (Auto) (45-73) % Lymph % (Auto) (20-40) % [place] % (Auto) (2-11) % Eos % (Auto) (0-4) % Baso % (Auto) (0-2) % Lymph # (Auto) (1.2-4.9) X10*3/uL [place] # (Auto) (0.1-1.2) X10*3/uL Eos # (Auto) (0.0-0.4) X10*3/uL Baso # (Auto) (0.0-0.2) X10*3/uL Abs Immat Gran (auto) (0.00-0.03) X10*3/uL Absolute Neuts (auto) (2.0-8.3) x10*3/uL Absolute Nucleated RBC (0.0-0.012) X10*3/uL Nucleated RBC % (auto) (0.0-0.2) /100WBC Sodium (135-145) mmol/L Potassium (3.3-5.1) mmol/L Chloride (96-108) mmol/L Carbon Dioxide (22-29) mmol/L Anion Gap (12-20) BUN (9-16) mg/dL Creatinine (0.5-1.4) mg/dL Estim Creat Clear Calc Estimated GFR Random Glucose (60-115) mg/dL Calcium (8.4-10.2) mg/dL Total Bilirubin (0.0-1.0) mg/dL AST (5-31) U/L ALT (0-31) U/L Alkaline Phosphatase (39-117) U/L Total Protein (6.5-8.0) g/dL Albumin (3.5-5.0) g/dL Beta HCG, Quant mIU/mL Urine Color Urine Appearance Urine pH (5.0-9.0) Ur Specific [place] (1.005-1.025) Urine Protein (Neg-Trace) mg/dL Urine Glucose (UA) (Negative) mg/dL Urine Ketones (Negative) mg/dL Urine Blood (Negative) Urine Nitrite (Negative) Ur Leukocyte Esterase (Negative) Urine RBC (0-2) /HPF Urine WBC (0-5) /HPF Ur Squamous Epith Cells (0-2) /HPF Urine Bacteria (None Seen) Hyaline Casts (0-2) /LPF Urine Test (NEGATIVE) Urine Opiates Screen (Not Detect) Urine Fentanyl Screen (Not Detect) Ur Barbiturates Screen (Not Detect) Ur Phencyclidine Scrn (Not Detect) Ur Amphetamines Screen (Not Detect) U Benzodiazepines Scrn (Not Detect) Urine Cocaine Screen (Not Detect) U Marijuana (THC) Screen (Not Detect) Ethyl Alcohol mg/dL Chlam trachomat DNA PCR NOT DETECTED (Not Detect.) COVID-19 (AUTUMN) (Negative) COVID-19 Clin Com N.gonorrhoeae DNA (PCR) NOT DETECTED (Not Detect.) <Devaughn Oviedo MD - Last Filed: 07/08/22 12:08> Lab Results 07/07/22 07/07/22 07/07/22 Range/Units 15:10 16:14 16:14 WBC 6.3 (4.8-10.8) X10*3/uL RBC 4.17 L (4.20-5.50) X10*6/uL Hgb 10.0 L (12.0-16.0) g/dl Hct 34.4 L (37.0-47.0) % MCV 82.5 (80.0-98.0) fL MCH 24.0 L (27.0-33.0) pg MCHC 29.1 L (31.0-35.0) g/dl RDW 17.3 H (11.0-16.0) % Plt Count 308 D (160-400) X10*3/uL MPV 9.1 L (9.4-12.3) fL Immature Gran % (Auto) 0.2 (0.0-0.4) % Neut % (Auto) 58.2 (45-73) % Lymph % (Auto) 33.3 (20-40) % [place] % (Auto) 6.6 (2-11) % Eos % (Auto) 0.9 (0-4) % Baso % (Auto) 0.8 (0-2) % Lymph # (Auto) 2.1 (1.2-4.9) X10*3/uL [place] # (Auto) 0.4 (0.1-1.2) X10*3/uL Eos # (Auto) 0.1 (0.0-0.4) X10*3/uL Baso # (Auto) 0.1 (0.0-0.2) X10*3/uL Abs Immat Gran (auto) 0.01 (0.00-0.03) X10*3/uL Absolute Neuts (auto) 3.7 (2.0-8.3) x10*3/uL Absolute Nucleated RBC 0.000 (0.0-0.012) X10*3/uL Nucleated RBC % (auto) 0.0 (0.0-0.2) /100WBC Sodium 140 (135-145) mmol/L Potassium 4.0 (3.3-5.1) mmol/L Chloride 102 (96-108) mmol/L Carbon Dioxide 29 (22-29) mmol/L Anion Gap 13 (12-20) BUN 16 (9-16) mg/dL Creatinine 0.97 (0.5-1.4) mg/dL Estim Creat Clear Calc 69.9 Estimated GFR > 60 Random Glucose 102 (60-115) mg/dL Calcium 9.8 (8.4-10.2) mg/dL Total Bilirubin 0.5 (0.0-1.0) mg/dL AST 25 (5-31) U/L ALT 13 (0-31) U/L Alkaline Phosphatase 68 (39-117) U/L Total Protein 7.9 (6.5-8.0) g/dL Albumin 4.7 (3.5-5.0) g/dL Beta HCG, Quant < 2 mIU/mL Urine Color Urine Appearance Urine pH (5.0-9.0) Ur Specific [place] (1.005-1.025) Urine Protein (Neg-Trace) mg/dL Urine Glucose (UA) (Negative) mg/dL Urine Ketones (Negative) mg/dL Urine Blood (Negative) Urine Nitrite (Negative) Ur Leukocyte Esterase (Negative) Urine RBC (0-2) /HPF Urine WBC (0-5) /HPF Ur Squamous Epith Cells (0-2) /HPF Urine Bacteria (None Seen) Hyaline Casts (0-2) /LPF Urine Test (NEGATIVE) Urine Opiates Screen (Not Detect) Urine Fentanyl Screen (Not Detect) Ur Barbiturates Screen (Not Detect) Ur Phencyclidine Scrn (Not Detect) Ur Amphetamines Screen (Not Detect) U Benzodiazepines Scrn (Not Detect) Urine Cocaine Screen (Not Detect) U Marijuana (THC) Screen (Not Detect) Ethyl Alcohol < 10 mg/dL Chlam trachomat DNA PCR (Not Detect.) COVID-19 (AUTUMN) Negative (Negative) COVID-19 Clin Com See Note N.gonorrhoeae DNA (PCR) (Not Detect.) 07/07/22 07/07/22 07/07/22 Range/Units 18:55 18:55 18:55 WBC (4.8-10.8) X10*3/uL RBC (4.20-5.50) X10*6/uL Hgb (12.0-16.0) g/dl Hct (37.0-47.0) % MCV (80.0-98.0) fL MCH (27.0-33.0) pg MCHC (31.0-35.0) g/dl RDW (11.0-16.0) % Plt Count (160-400) X10*3/uL MPV (9.4-12.3) fL Immature Gran % (Auto) (0.0-0.4) % Neut % (Auto) (45-73) % Lymph % (Auto) (20-40) % [place] % (Auto) (2-11) % Eos % (Auto) (0-4) % Baso % (Auto) (0-2) % Lymph # (Auto) (1.2-4.9) X10*3/uL [place] # (Auto) (0.1-1.2) X10*3/uL Eos # (Auto) (0.0-0.4) X10*3/uL Baso # (Auto) (0.0-0.2) X10*3/uL Abs Immat Gran (auto) (0.00-0.03) X10*3/uL Absolute Neuts (auto) (2.0-8.3) x10*3/uL Absolute Nucleated RBC (0.0-0.012) X10*3/uL Nucleated RBC % (auto) (0.0-0.2) /100WBC Sodium (135-145) mmol/L Potassium (3.3-5.1) mmol/L Chloride (96-108) mmol/L Carbon Dioxide (22-29) mmol/L Anion Gap (12-20) BUN (9-16) mg/dL Creatinine (0.5-1.4) mg/dL Estim Creat Clear Calc Estimated GFR Random Glucose (60-115) mg/dL Calcium (8.4-10.2) mg/dL Total Bilirubin (0.0-1.0) mg/dL AST (5-31) U/L ALT (0-31) U/L Alkaline Phosphatase (39-117) U/L Total Protein (6.5-8.0) g/dL Albumin (3.5-5.0) g/dL Beta HCG, Quant mIU/mL Urine Color Dark Yellow Urine Appearance Cloudy Urine pH 6.0 (5.0-9.0) Ur Specific [place] >= 1.030 H (1.005-1.025) Urine Protein 30 (1+) H (Neg-Trace) mg/dL Urine Glucose (UA) Negative (Negative) mg/dL Urine Ketones Negative (Negative) mg/dL Urine Blood Large (3+) H (Negative) Urine Nitrite Negative (Negative) Ur Leukocyte Esterase Moderate (2+) H (Negative) Urine RBC >20 H (0-2) /HPF Urine WBC >50 H (0-5) /HPF Ur Squamous Epith Cells 3-5 (0-2) /HPF Urine Bacteria 3+ (None Seen) Hyaline Casts 0-2 (0-2) /LPF Urine Test NEGATIVE (NEGATIVE) Urine Opiates Screen POSITIVE H (Not Detect) Urine Fentanyl Screen POSITIVE H (Not Detect) Ur Barbiturates Screen Not Detected (Not Detect) Ur Phencyclidine Scrn Not Detected (Not Detect) Ur Amphetamines Screen POSITIVE H (Not Detect) U Benzodiazepines Scrn POSITIVE H (Not Detect) Urine Cocaine Screen POSITIVE H (Not Detect) U Marijuana (THC) Screen POSITIVE H (Not Detect) Ethyl Alcohol mg/dL Chlam trachomat DNA PCR (Not Detect.) COVID-19 (AUTUMN) (Negative) COVID-19 Clin Com N.gonorrhoeae DNA (PCR) (Not Detect.) 07/07/22 Range/Units Unknown WBC (4.8-10.8) X10*3/uL RBC (4.20-5.50) X10*6/uL Hgb (12.0-16.0) g/dl Hct (37.0-47.0) % MCV (80.0-98.0) fL MCH (27.0-33.0) pg MCHC (31.0-35.0) g/dl RDW (11.0-16.0) % Plt Count (160-400) X10*3/uL MPV (9.4-12.3) fL Immature Gran % (Auto) (0.0-0.4) % Neut % (Auto) (45-73) % Lymph % (Auto) (20-40) % [place] % (Auto) (2-11) % Eos % (Auto) (0-4) % Baso % (Auto) (0-2) % Lymph # (Auto) (1.2-4.9) X10*3/uL [place] # (Auto) (0.1-1.2) X10*3/uL Eos # (Auto) (0.0-0.4) X10*3/uL Baso # (Auto) (0.0-0.2) X10*3/uL Abs Immat Gran (auto) (0.00-0.03) X10*3/uL Absolute Neuts (auto) (2.0-8.3) x10*3/uL Absolute Nucleated RBC (0.0-0.012) X10*3/uL Nucleated RBC % (auto) (0.0-0.2) /100WBC Sodium (135-145) mmol/L Potassium (3.3-5.1) mmol/L Chloride (96-108) mmol/L Carbon Dioxide (22-29) mmol/L Anion Gap (12-20) BUN (9-16) mg/dL Creatinine (0.5-1.4) mg/dL Estim Creat Clear Calc Estimated GFR Random Glucose (60-115) mg/dL Calcium (8.4-10.2) mg/dL Total Bilirubin (0.0-1.0) mg/dL AST (5-31) U/L ALT (0-31) U/L Alkaline Phosphatase (39-117) U/L Total Protein (6.5-8.0) g/dL Albumin (3.5-5.0) g/dL Beta HCG, Quant mIU/mL Urine Color Urine Appearance Urine pH (5.0-9.0) Ur Specific [place] (1.005-1.025) Urine Protein (Neg-Trace) mg/dL Urine Glucose (UA) (Negative) mg/dL Urine Ketones (Negative) mg/dL Urine Blood (Negative) Urine Nitrite (Negative) Ur Leukocyte Esterase (Negative) Urine RBC (0-2) /HPF Urine WBC (0-5) /HPF Ur Squamous Epith Cells (0-2) /HPF Urine Bacteria (None Seen) Hyaline Casts (0-2) /LPF Urine Test (NEGATIVE) Urine Opiates Screen (Not Detect) Urine Fentanyl Screen (Not Detect) Ur Barbiturates Screen (Not Detect) Ur Phencyclidine Scrn (Not Detect) Ur Amphetamines Screen (Not Detect) U Benzodiazepines Scrn (Not Detect) Urine Cocaine Screen (Not Detect) U Marijuana (THC) Screen (Not Detect) Ethyl Alcohol mg/dL Chlam trachomat DNA PCR NOT DETECTED (Not Detect.) COVID-19 (AUTUMN) (Negative) COVID-19 Clin Com N.gonorrhoeae DNA (PCR) NOT DETECTED (Not Detect.) <Justino Murillo - Last Filed: 07/07/22 18:59> Social Determinants Patient?s care significantly limited by Social Determinants of Health including: Inadequate housing, Low income and Alcoholism and drug addiction in family <Devaughn Oviedo MD - Last Filed: 07/08/22 12:08> Discharge Plan Discharge Clinical Impression: Polysubstance abuse, Depression <BHARAT Graham - Last Filed: 07/14/22 09:28> Patient Disposition: Home, Self-Care <BHARAT Graham - Last Filed: 07/14/22 09:28> Instructions: Depression (ED), Polysubstance Abuse (ED) <BHARAT Graham - Last Filed: 07/14/22 09:28> Prescriptions: No Action clonidine HCl 0.1 mg tablet 1 tab PO TID PRN (Reason: Anxiety) hydroxyzine pamoate 50 mg capsule 1 cap PO TID trazodone 100 mg tablet 2 tab PO BEDTIME oxcarbazepine 300 mg tablet 1 tab PO BID topiramate 50 mg tablet 150 mg PO DAILY olanzapine 10 mg tablet 10 mg PO BEDTIME clonazepam 0.5 mg tablet 0.5 mg PO BID PRN (Reason: Anxiety) gabapentin 800 mg tablet 800 mg PO TID atomoxetine [Strattera] 100 mg capsule 100 mg PO DAILY methadone 140 mg PO DAILY <BHARAT Graham - Last Filed: 07/14/22 09:28> Referrals: Physician,Unknown J [Primary Care Provider] - 3 days <BHARAT Graham - Last Filed: 07/14/22 09:28> Interventions: [place]-Suicide Risk Severity Scale Last Done: 07/08/22 06:00 ED Discharge Assessment Last Done: 07/08/22 12:13 <BHARAT Graham - Last Filed: 07/14/22 09:28> Discharge Date/Time: 07/08/22 12:16 <BHARAT Graham - Last Filed: 07/14/22 09:28>
--- NOTE | 2022-07-07 15:01 | PC.NURSE ---
Pt tpo Pod. Tearful. Claiming BF gave her STD and is SI. Sharps found in belonging. Belongings in [place].
[2022-07-07 15:29] LABS: COVID-19 Test Negative (Negative); IDNOW Serial# BCCEAD1C
[2022-07-07 16:18] LABS: MANUAL DIFF FLAG NO
[2022-07-07 16:27] LABS: Basophils Absolute Auto 0.1 X10*3/uL (0.0-0.2); Basophils Percent Auto 0.8 % (0-2); Eosinophils Absolute Auto 0.1 X10*3/uL (0.0-0.4); Eosinophils Percent Auto 0.9 % (0-4); Hematocrit 34.4 % (37.0-47.0); Imm Gran Abs Auto 0.01 X10*3/uL (0.00-0.03); Imm Gran Pct Auto 0.2 % (0.0-0.4); Lymphocytes Absolute Auto 2.1 X10*3/uL (1.2-4.9); Lymphocytes Percent Auto 33.3 % (20-40); Mean Corpuscular HGB Conc 29.1 g/dl (31.0-35.0); Mean Corpuscular Volume 82.5 fL (80.0-98.0); Mean Platelet Volume 9.1 fL (9.4-12.3); Monocytes Absolute Auto 0.4 X10*3/uL (0.1-1.2); Monocytes Percent Auto 6.6 % (2-11); Neutrophils Absolute Auto 3.7 x10*3/uL (2.0-8.3); Neutrophils Percent Auto 58.2 % (45-73); Platelet Count 308 X10*3/uL (160-400); Red Blood Count 4.17 X10*6/uL (4.20-5.50); Red Cell Distribution Width 17.3 % (11.0-16.0); White Blood Count 6.3 X10*3/uL (4.8-10.8)
[2022-07-07 16:44] LABS: Alanine Aminotransferase 13 U/L (0-31); Albumin Level 4.7 g/dL (3.5-5.0); Alkaline Phosphatase 68 U/L (39-117); Anion Gap 13 (12-20); Aspartate Amino Transferase 25 U/L (5-31); Bilirubin Total 0.5 mg/dL (0.0-1.0); Blood Urea Nitrogen 16 mg/dL (9-16); Calcium 9.8 mg/dL (8.4-10.2); Carbon Dioxide 29 mmol/L (22-29); Chloride 102 mmol/L (96-108); Creatinine Clr Calc Pharmacy 69.9; Estimated Glomerular Filt Rate > 60; Ethanol < 10 mg/dL; Glucose Random 102 mg/dL (60-115); Sodium 140 mmol/L (135-145); Total Protein 7.9 g/dL (6.5-8.0)
--- NOTE | 2022-07-07 17:02 | PC.NURSE ---
Pt blowing nose on Sonido top. Flashing Breasts. Demanding to be discharged. Reporting, I came here for my dose . I thought I would get my dose . I want to discharged. I want to go home .
--- NOTE | 2022-07-07 17:25 | PHA.MEDREC ---
Pharmacy Consult ? Medication Reconciliation Pharmacy has completed the medication reconciliation.
[2022-07-07] MEDS: methADONE HCl 20 MG/2 ML ORAL.CONC 10 MG PO (17:46)
[2022-07-07 18:02] LABS: HCG Quantitative < 2 mIU/mL
[2022-07-07] MEDS: diphenhydrAMINE HCL 50 MG/ML VIAL IM (19:00)
[2022-07-07] MEDS: LORazepam 2 MG/ML VIAL IM (19:00)
[2022-07-07] MEDS: Haloperidol Lactate 5 MG/ML VIAL IM (19:00)
[2022-07-07 19:05] LABS: Appearance Urine Cloudy; Color Urine Dark Yellow; Glucose Urine UA Negative (Negative); Leukocyte Esterase Urine Moderate (2+) (Negative); Nitrite Urine Negative (Negative); Specific Gravity - Urine >= 1.030 (1.005-1.025); UMIC TRIGGER UACC YES; Urine Blood Large (3+) (Negative); Urine Ketones Negative (Negative); Urine Protein 30 (1+) mg/dL (Neg-Trace)
[2022-07-07 19:06] LABS: UPreg QC Valid YES; Urine Pregnancy NEGATIVE (NEGATIVE)
[2022-07-07 19:12] LABS: Bacteria Urine 3+ (None Seen); Hyaline Casts Urine 0-2 /LPF (0-2); RBC Urine >20 /HPF (0-2); UACC Culture Trigger YES; WBC Urine >50 /HPF (0-5)
[2022-07-07 19:13] LABS: Amphetamine Screen Urine POSITIVE (Not Detect); Barbiturates, Urine Not Detected (Not Detect); Benzodiazepines Screen Urine POSITIVE (Not Detect); Cannabinoid Screen Urine POSITIVE (Not Detect); Cocaine Screen Urine POSITIVE (Not Detect); Fentanyl, urine POSITIVE (Not Detect); Opiate Screen Urine POSITIVE (Not Detect); Phencyclidine Screen Urine Not Detected (Not Detect)
--- NOTE | 2022-07-08 01:16 | PC.NURSE ---
Patient is currently in bed appears sleeping, no distress observed/reported, behavior non concerning at this time, med rec complete/pending provider's approval, care consult ordered/pending evaluation in the morning, will continue to monitor. patient at the time of arrival was exhibiting loud and disruptive behavior, verbally and physically abusive toward staff member, patient was throwing water, jumping in her bed, when attempted to redirect patient spat on staff member provider notified/ordered Ativan 2 mg IM, Haldol 5 mg IM, and Benadryl 50 mg IM, administered at 1900 as ordered/patient continued to exhibit aggressive requiring physical restraint at 0 which ended at 2024 when patient was calm, and eventually fell asleep.
[2022-07-08 06:01] VITALS: RESP 17
--- NOTE | 2022-07-08 07:18 | ECG_ITS ---
Test Reason : cocaine use Blood Pressure : / mmHG Vent. Rate : 053 BPM Atrial Rate : 053 BPM P-R Int : 130 ms QRS Dur : 088 ms QT Int : 518 ms P-R-T Axes : 055 -26 -13 degrees QTc Int : 486 ms Sinus bradycardia Prolonged QT Abnormal ECG When compared with ECG of 20-APR-2022 10:51, Nonspecific T wave abnormality no longer evident in Lateral leads QT has shortened Referred By: Devaughn Oviedo Electronically Signed By:LEON FERNANDES MD
--- NOTE | 2022-07-08 07:54 | PC.NURSE ---
Pt reports Methadone Dosing: [facility] [phone]
--- NOTE | 2022-07-08 08:04 | PC.NURSE ---
[facility] reports [facility] 140mg dose
--- NOTE | 2022-07-08 08:37 | HE.PHANOTE ---
Re: methadone verification 140 mg dose given @[facility] on 07/04/22 Verified with Nely by Juanita Wright
[2022-07-08 09:08] VITALS: BP 88/52; PULSE 72; RESP 12; TEMP 36.8; O2SAT 97
--- NOTE | 2022-07-08 09:34 | PC.NURSE ---
Pt sleeping after waking this AM. Pt changed this am after she woke and had mense blood on Sonido. VS 88/52. 72, 97%, 12, 98.2. aware
[2022-07-08 11:28] LABS: CT PCR NOT DETECTED (Not Detect.); NG PCR NOT DETECTED (Not Detect.)
[2022-07-08 12:01] VITALS: BP 106/69; PULSE 85; RESP 15; O2SAT 94
[2022-07-08] MEDS: methADONE HCl 20 MG/2 ML ORAL.CONC 140 MG PO (12:09)
== END 2022-07-08 12:16 | disposition home or self-care (01) ==
PROVIDERS: Physician Assistant; Student in an Organized Health Care Education/Training Program; Emergency Provider Emergency Medicine
DX: F33.1 Major depressive disorder, recurrent, moderate (principal); R00.1 Bradycardia, unspecified; F11.10 Opioid abuse, uncomplicated; F14.10 Cocaine abuse, uncomplicated; F12.10 Cannabis abuse, uncomplicated; Z20.822 Contact with and (suspected) exposure to COVID-19; Z20.828 Contact with and (suspected) exposure to other viral communicable diseases; Z79.899 Other long term (current) drug therapy
CPT/HCPCS: 0353U; 36415; 80053; 80307; 81001; 81003; 81025; 82077; 84702; 85025; 87086; 87635; 93005; 96372; 99285; J1200; J2060; S9485

== ENCOUNTER 2022-07-19 12:08 | Emergency (ER) | payer MEDICAID, SELFPAY ==
[2022-07-19 12:25] VITALS: BP 106/61; PULSE 69; RESP 18; TEMP 36.3; O2SAT 97; BMI 23.6
--- NOTE | 2022-07-19 12:32 | ED_ITS ---
HPI - General Adult General Chief complaint: Skin/Abscess/Foreign Body Stated complaint: L leg infection/STD Time Seen by Provider: 07/19/22 12:38 Source: patient, RN notes reviewed and old records reviewed Mode of arrival: ambulatory Limitations: no limitations History of Present Illness HPI narrative: 36-year-old female presents for evaluation of 2 separate complaints pain Her 1st complaint is that her sexual partner tested positive for gonorrhea and chlamydia at a clinic yesterday The patient would like treatment for this She also complains of a left leg skin infection. The patient admits to injecting IV drugs into the area 5 days ago States that she has had a red painful rash over the last 2-3 days that is not painful to walk. Denies any fevers or chills Related Data Home Medications Medication Instructions Recorded Confirmed clonidine HCl 0.1 mg tablet 1 tab PO TID PRN Anxiety 04/15/22 07/07/22 hydroxyzine pamoate 50 mg capsule 1 cap PO TID 04/15/22 07/07/22 oxcarbazepine 300 mg tablet 1 tab PO BID 04/15/22 07/07/22 topiramate 50 mg tablet 150 mg PO DAILY 04/15/22 07/07/22 trazodone 100 mg tablet 2 tab PO BEDTIME 04/15/22 07/07/22 atomoxetine 100 mg capsule 100 mg PO DAILY 06/21/22 07/07/22 (Strattera) clonazepam 0.5 mg tablet 0.5 mg PO BID PRN Anxiety 06/21/22 07/07/22 gabapentin 800 mg tablet 800 mg PO TID 06/21/22 07/07/22 olanzapine 10 mg tablet 10 mg PO BEDTIME 06/21/22 07/07/22 methadone 140 mg PO DAILY 07/08/22 07/08/22 Previous Rx's Medication Instructions Recorded doxycycline hyclate 100 mg tablet 100 mg PO BID #28 tabs 07/19/22 Allergies Allergy/AdvReac Type Severity Reaction Status Date / Time No Known Allergies Allergy Verified 11/25/21 02:37 [No Known Allergies*] Review of Systems Constitutional: Constitutional: Reports as per HPI, Denies chills, Denies fatigue, Denies fever(s) and Denies headache(s) ENT: Denies headache(s) Cardiovascular: Cardiovascular: Denies chest pain and Denies dyspnea Respiratory: Respiratory: Denies cough and Denies dyspnea Gastrointestinal: Gastrointestinal: Denies abdominal pain, Denies constipation and Denies vomiting Genitourinary: Genitourinary: Reports vaginal discharge Integumentary/Breasts: Skin/Breast: Reports erythema and Reports rash Neurologic: Denies headache(s) and Denies focal weakness Endocrine: Endocrine: Denies fatigue PMFSH Past Medical History Medical History Acute anxiety Anxiety Atypical bipolar disorder Depression Depression Drug-induced psychotic disorder History of drug dependence/abuse Opiate withdrawal PTSD (post-traumatic stress disorder) Social History Social History Household Members: None Household Members Other:: grandmother Housing: Unknown / Unable to assess Do you presently have visiting nurse or other home services: No Unable to assess alcohol history related to: Unknown 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: unknown Patient Tobacco Use Status: Tobacco use Unknown Cigarette Packs Per Day: 1.5 Cigarettes Per Day: 30.0 Years Smoked: 23 Second Hand Smoke Exposure: Yes Substance Use Type: Crack/Cocaine, Marijuana and Opiates Advance Directives: No Advance Directives Information Provided: No service: No Current occupational status: unemployed Sexual orientation: Straight/Heterosexual Physical Exam ED Vital Signs: Vital Signs - 24 hr 07/19/22 12:25 Temperature 97.3 F Pulse Rate 69 Respiratory Rate 18 Blood Pressure 106/61 Pulse Oximetry 97 Oxygen Delivery Method Room Air BMI result Body Mass Index 23.6 Const General: healthy appearing, comfortable, no acute distress, alert and awake Nutritional Appearance: well nourished Orientation/consciousness: patient oriented x3 HENMT Head: Yes normocephalic and Yes atraumatic Throat: Yes posterior oropharynx normal Eyes Eyelids: Yes eyelids normal Conjunctivae: conjunctivae normal Sclerae: sclerae normal Corneas: corneas normal Pupils: Equal, round and reactive pupils present EOM: EOMs intact bilaterally Neck Neck: Yes full ROM Resp Effort & Inspection: normal respiratory effort, able to speak in complete sentences, no audible wheezes and not labored Auscultation: clear to auscultation bilaterally Cardio Rate: regular rate Rhythm: regular rhythm GI Inspection: No distended Palpation (GI): Soft to palpation, not firm, nontender, no guarding and not rigid Auscultation: normoactive bowel sounds Skin Other: Patient has a 5 cm area of erythema to the left hanley. There is about a 2 cm area in the center with some induration and a tiny central opening with minimal purulent drainage. Neuro General: patient oriented x3 Cranial nerves: Yes CN's II-XII intact bilaterally, Yes Equal, round and reactive pupils present and Yes Bilaterally intact EOM present Cognition (Neuro): normal cognition Extrem Other: Moving all extremities well without any obvious deformities Medications Administered Discontinued Medications Generic Name Dose Route Start Last Admin Trade Name Freq PRN Reason Stop Dose Admin Ceftriaxone Sodium 500 mg/ 0 mg 07/19/22 12:30 07/19/22 12:42 Lidocaine HCl 1 ml IM 07/19/22 12:31 1 kit ONCE ONE Administration Doxycycline Monohydrate 100 mg 07/19/22 12:30 07/19/22 12:42 Doxycycline Monohydrate 100 Mg Capsule PO 07/19/22 12:31 100 mg ONCE ONE Administration Medical Decision Making Medical Decision Making MDM Narrative: Patient was offered testing for gonorrhea chlamydia, however given that she really has a documented positive exposure we can treat her with ceftriaxone and doxycycline. I offered to attempt to incise the wound to her left lower leg. There does appear to be a small area The patient preferred to try weight loss while on antibiotics that she is taking any for complaints. Therefore I circled the area of cellulitis. With patient was encouraged to return in 2 days if her symptoms are not improving or sooner if they are worsening or she de velops fevers. Differential Diagnosis Cellulitis Abscess Gonorrhea Chlamydia IV drug abuse Discharge Plan Discharge Clinical Impression: Cellulitis and abscess of left leg, Exposure to gonorrhea, Exposure to chlamydia Patient Disposition: Home, Self-Care Instructions: Cellulitis (DC) Additional Instructions: You are being treated for both gonorrhea and chlamydia. Take the doxycycline twice daily for 2 weeks. You should not have any sexual intercourse into the finish the antibiotic treatment. For the wound to your left leg, return in 2-3 days if her symptoms are not improving or return sooner if you develop a fever or her symptoms are worsening Prescriptions: New doxycycline hyclate 100 mg tablet 100 mg PO BID Qty: 28 0RF No Action clonidine HCl 0.1 mg tablet 1 tab PO TID PRN (Reason: Anxiety) hydroxyzine pamoate 50 mg capsule 1 cap PO TID trazodone 100 mg tablet 2 tab PO BEDTIME oxcarbazepine 300 mg tablet 1 tab PO BID topiramate 50 mg tablet 150 mg PO DAILY olanzapine 10 mg tablet 10 mg PO BEDTIME clonazepam 0.5 mg tablet 0.5 mg PO BID PRN (Reason: Anxiety) gabapentin 800 mg tablet 800 mg PO TID atomoxetine [Strattera] 100 mg capsule 100 mg PO DAILY methadone 140 mg PO DAILY
[2022-07-19] MEDS: Doxycycline Monohydrate 100 MG CAPSULE PO (12:42)
[2022-07-19] MEDS: cefTRIAXone sodium 500 MG, Lidocaine HCl 1 % MPF 1 ML IM (12:42)
== END 2022-07-19 13:15 | disposition home or self-care (01) ==
PROVIDERS: Emergency Provider Emergency Medicine; PCP Physician Assistant
DX: L03.116 Cellulitis of left lower limb (principal); N89.8 Other specified noninflammatory disorders of vagina; Z20.2 Contact with and (suspected) exposure to infections with a predominantly sexual mode of transmission; F19.20 Other psychoactive substance dependence, uncomplicated; F11.20 Opioid dependence, uncomplicated; F17.210 Nicotine dependence, cigarettes, uncomplicated; Z79.899 Other long term (current) drug therapy
CPT/HCPCS: 96372; 99282; 99284; J0696

== ENCOUNTER 2022-08-02 11:38 | Emergency (ER) | payer OTHER, MEDICAID, SELFPAY ==
--- NOTE | 2022-08-02 11:46 | ED_ITS ---
HPI - Psych General Chief Complaint: Psychiatric Symptoms Stated Complaint: PARANOIA S/P DRUG USE PER EMS Time Seen by Provider: 08/02/22 11:43 Source: patient Mode of arrival: EMS History of Present Illness HPI Narrative: This is a 36 years old of female with history of bipolar disorder and prior psychiatric hospitalization, also history of polysubstance abuse was brought here by ambulance on Section 12 was signed by the police because increasing paranoia, patient called 911 multiple times, he thinks people going to kill her MD complaint: other (paranoia) Onset (ago): day(s) (1) History of same: Yes Relieving factors: none Exacerbating factors: none Context: recent drug abuse Associated psychiatric symptoms: other (paranoia) Related Data Home Medications Medication Instructions Recorded Confirmed clonidine HCl 0.1 mg tablet 1 tab PO TID PRN Anxiety 04/15/22 07/07/22 hydroxyzine pamoate 50 mg capsule 1 cap PO TID 04/15/22 07/07/22 oxcarbazepine 300 mg tablet 1 tab PO BID 04/15/22 07/07/22 topiramate 50 mg tablet 150 mg PO DAILY 04/15/22 07/07/22 trazodone 100 mg tablet 2 tab PO BEDTIME 04/15/22 07/07/22 atomoxetine 100 mg capsule 100 mg PO DAILY 06/21/22 07/07/22 (Strattera) clonazepam 0.5 mg tablet 0.5 mg PO BID PRN Anxiety 06/21/22 07/07/22 gabapentin 800 mg tablet 800 mg PO TID 06/21/22 07/07/22 olanzapine 10 mg tablet 10 mg PO BEDTIME 06/21/22 07/07/22 methadone 140 mg PO DAILY 07/08/22 07/08/22 Previous Rx's Medication Instructions Recorded doxycycline hyclate 100 mg tablet 100 mg PO BID #28 tabs 07/19/22 Allergies Allergy/AdvReac Type Severity Reaction Status Date / Time No Known Allergies Allergy Verified 08/02/22 15:23 [No Known Allergies*] Review of Systems Review of Systems: Yes Unobtainable due to mental condition PMFSH Past Medical History Medical History Acute anxiety Anxiety Atypical bipolar disorder Depression Depression Drug-induced psychotic disorder History of drug dependence/abuse Opiate withdrawal PTSD (post-traumatic stress disorder) Social History Social History Household Members: None Household Members Other:: grandmother Housing: Unknown / Unable to assess Do you presently have visiting nurse or other home services: No Unable to assess alcohol history related to: Unknown 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: current 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 frequency: a few times a week Alcohol type: beer, wine and hard liquor Patient Tobacco Use Status: Tobacco use Unknown Cigarette Packs Per Day: 1.5 Cigarettes Per Day: 30.0 Years Smoked: 23 Smoked in Last 30 Days: Yes Second Hand Smoke Exposure: Yes Use of substances other than those prescribed or required for medical reasons: Yes Substance Use Type: Crack/Cocaine and Heroin Substance Use Frequency: Chronic Longstanding Last Used Substance: Just Prior to Admission Advance Directives: No Advance Directives Information Provided: No service: No Current occupational status: unemployed Sexual orientation: Straight/Heterosexual Physical Exam Vital Signs: Vital Signs: Last Vital Signs Temp 98.8 F 08/02/22 11:47 Pulse 91 08/02/22 12:14 Resp 19 08/02/22 12:14 BP 123/82 08/02/22 12:14 Pulse Ox 97 08/02/22 12:14 O2 Del Method Room Air 08/02/22 15:33 BMI result Body Mass Index 24.0 Const: General: cooperative Nutritional Appearance: well nourished Limitations: no limitations HEENT: Head: Yes normal to inspection Ears: hearing grossly normal bilatera lly General nose exam: Normal external nose present Face and sinus: Yes normal facial exam Mouth: Normal oral and palatal mucosa present Neck: Neck: Yes normal visual inspection and Yes full ROM Chest: Chest palpation & inspection: normal inspection of the chest Resp: Effort & Inspection: normal respiratory effort Auscultation: clear to auscultation bilaterally Cardio: Jugular venous distension: no JVD Rate: regular rate Rhythm: regular rhythm GI: Inspection: Yes normal to inspection Palpation (GI): Soft to palpation, not firm, nontender and no guarding Auscultation: normal bowel sounds Skin: General skin exam: no rashes or lesions noted and elasticity normal Lesions: no lesions Rashes: no rashes Neuro: General: no focal motor deficits and CN's II-XI intact bilaterally Psych: Affect: Anxious affect present Thought content: Paranoid delusions present Course Reevaluation(s) Reevaluation #1: pt became agitate ,uncooperative, she required chemical restrained we tried mu ltiple time to calm her Time: 12:00 Reevaluation #2: Signed out to Dr Aguero Time: 16:15 Medications Administered Discontinued Medications Generic Name Dose Route Start Last Admin Trade Name Freq PRN Reason Stop Dose Admin Lorazepam 2 mg 08/02/22 11:59 08/02/22 12:06 Lorazepam 2 Mg/Ml Vial IM 08/02/22 12:00 2 mg ONCE ONE Administration Olanzapine 10 mg 08/02/22 11:58 08/02/22 12:08 Olanzapine 10 Mg Vial IM 08/02/22 11:59 10 mg ONCE ONE Administration Discharge Plan Discharge Clinical Impression: Bipolar 1 disorder Patient Disposition: Still a Patient Prescriptions: No Action clonidine HCl 0.1 mg tablet 1 tab PO TID PRN (Reason: Anxiety) hydroxyzine pamoate 50 mg capsule 1 cap PO TID trazodone 100 mg tablet 2 tab PO BEDTIME oxcarbazepine 300 mg tablet 1 tab PO BID topiramate 50 mg tablet 150 mg PO DAILY olanzapine 10 mg tablet 10 mg PO BEDTIME clonazepam 0.5 mg tablet 0.5 mg PO BID PRN (Reason: Anxiety) gabapentin 800 mg tablet 800 mg PO TID atomoxetine [Strattera] 100 mg capsule 100 mg PO DAILY doxycycline hyclate 100 mg tablet 100 mg PO BID Qty: 28 0RF methadone 140 mg PO DAILY Interventions: [place]-Suicide Risk Severity Scale Last Done: 08/02/22 11:50
[2022-08-02 11:47] VITALS: BP 116/71; BP 142/90; PULSE 103; PULSE 95; RESP 18; TEMP 37.1; O2SAT 97; O2SAT 98; BMI 24.0
[2022-08-02] MEDS: LORazepam 2 MG/ML VIAL IM (12:06)
[2022-08-02] MEDS: OLANZapine 10 MG VIAL IM (12:08)
[2022-08-02 12:14] VITALS: BP 123/82; PULSE 91; RESP 19; O2SAT 97
--- NOTE | 2022-08-02 13:36 | PC.NURSE ---
Pt arrived via EMS and PD appro around noon, PD reporting that patient had been to methadone clinic this morning and then reporting using heroin/cocaine this morning. Pt agreed that cocaine makes her paranoid, PD/EMs reporting she has called 911 over 20x this morning, and surrounded herself in lotion so no one could get to her. Pt became very aggressive with staff when asked to spinning frame changer, as she had needles and paraphernalia on her, multiple people to get pt changed over. She continued to scream at staff, PRN IMs orderedd at this time and given. Pt did spinning frame changer at this time, and requested to call her ex, hosp phone was given, and belongings were brought to decon. Pt is currently Sectioned 12 by PD, care team consult placed. Pt brought over to pod at this time.
--- NOTE | 2022-08-02 14:17 | PC.NURSE ---
call to [facility] X 2 left message to verify methadone dose. Expecting a return call.
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
[2022-08-02 17:34] LABS: COVID-19 Test Negative (Negative); IDNOW Serial# BCCEAD1C
[2022-08-02 17:44] LABS: MANUAL DIFF FLAG NO
[2022-08-02 17:47] LABS: Basophils Percent Auto 0.1 % (0-2); Eosinophils Percent Auto 0.4 % (0-4); Hematocrit 28.4 % (37.0-47.0); Hemoglobin 8.5 g/dl (12.0-16.0); Imm Gran Abs Auto 0.02 X10*3/uL (0.00-0.03); Imm Gran Pct Auto 0.3 % (0.0-0.4); Lymphocytes Absolute Auto 1.5 X10*3/uL (1.2-4.9); Mean Corpuscular HGB Conc 29.9 g/dl (31.0-35.0); Mean Corpuscular Hemoglobin 24.9 pg (27.0-33.0); Mean Platelet Volume 9.6 fL (9.4-12.3); Monocytes Absolute Auto 0.4 X10*3/uL (0.1-1.2); Monocytes Percent Auto 5.1 % (2-11); Neutrophils Absolute Auto 5.9 x10*3/uL (2.0-8.3); Neutrophils Percent Auto 75.1 % (45-73); Platelet Count 230 X10*3/uL (160-400); Red Blood Count 3.42 X10*6/uL (4.20-5.50); Red Cell Distribution Width 17.8 % (11.0-16.0); White Blood Count 7.9 X10*3/uL (4.8-10.8)
[2022-08-02 18:03] LABS: Alanine Aminotransferase 12 U/L (0-31); Albumin Level 3.7 g/dL (3.5-5.0); Alkaline Phosphatase 51 U/L (39-117); Anion Gap 11 (12-20); Aspartate Amino Transferase 22 U/L (5-31); Bilirubin Total 0.4 mg/dL (0.0-1.0); Blood Urea Nitrogen 11 mg/dL (9-16); Calcium 8.9 mg/dL (8.4-10.2); Carbon Dioxide 23 mmol/L (22-29); Chloride 109 mmol/L (96-108); Creatinine Clr Calc Pharmacy 69.9; Estimated Glomerular Filt Rate > 60; Glucose Random 111 mg/dL (60-115); Potassium 3.4 mmol/L (3.3-5.1); Sodium 140 mmol/L (135-145); Total Protein 6.2 g/dL (6.5-8.0)
--- NOTE | 2022-08-02 18:24 | PHA.MEDREC ---
Pharmacy Consult ? Medication Reconciliation Pharmacy has completed the medication reconciliation. Patient attests to still taking hydroxyzine 50mg TID, olanzapine 10mg bedtime, and oxcarbazepine 300mg BID. However, pharmacy claim history shows that olanzapine and hydroxyzine haven't been refilled since 05/04/22, and oxcarbazepine hasn't been refilled since 03/06/22; all medications were filled for 30 days supply.
--- NOTE | 2022-08-02 18:42 | PC.NURSE ---
Pt is sleeping at this time. Respirations normal.
[2022-08-02 19:18] LABS: Appearance Urine Turbid; Color Urine Yellow; Glucose Urine UA Negative (Negative); Leukocyte Esterase Urine Small (1+) (Negative); Nitrite Urine Negative (Negative); PH 7.5 (5.0-9.0); Specific Gravity - Urine 1.015 (1.005-1.025); UMIC TRIGGER UACC YES; Urine Blood Small (1+) (Negative); Urine Ketones Negative (Negative); Urine Protein Negative (Neg-Trace)
[2022-08-02 19:25] LABS: Bacteria Urine None Seen (None Seen); Hyaline Casts Urine 0-2 /LPF (0-2); RBC Urine 0-2 /HPF (0-2); Squamous Epithelial Cell Urine 0-2 /HPF (0-2); UACC Culture Trigger YES; WBC Urine 0-5 /HPF (0-5)
[2022-08-02 19:27] LABS: UPreg QC Valid YES; Urine Pregnancy NEGATIVE (NEGATIVE)
[2022-08-02 20:04] LABS: Amphetamine Screen Urine Not Detected (Not Detect); Barbiturates, Urine Not Detected (Not Detect); Benzodiazepines Screen Urine Not Detected (Not Detect); Cannabinoid Screen Urine POSITIVE (Not Detect); Cocaine Screen Urine POSITIVE (Not Detect); Fentanyl, urine POSITIVE (Not Detect); Opiate Screen Urine POSITIVE (Not Detect); Phencyclidine Screen Urine Not Detected (Not Detect)
[2022-08-02] MEDS: OXcarbazepine 300 MG TABLET PO (20:32)
[2022-08-02] MEDS: clonazePAM 0.5 MG TABLET PO (20:32)
[2022-08-02] MEDS: traZODone HCL 100 MG TABLET 200 MG PO (20:32)
[2022-08-02] MEDS: OLANZapine 10 MG TABLET PO (20:32)
[2022-08-02] MEDS: hydrOXYzine HCL 50 MG TABLET PO (20:32)
[2022-08-02] MEDS: Gabapentin 400 MG CAPSULE 800 MG PO (20:32)
[2022-08-02 20:47] VITALS: BP 94/57; PULSE 70; RESP 20; TEMP 36.5; O2SAT 98
[2022-08-02 22:05] LABS: Ethanol < 10 mg/dL
--- NOTE | 2022-08-02 22:21 | MHC.CARE ---
Pt currently denies hallucinations and reports that she just did some Coke . Pt reports that she just took her night time meds and she is very tired . She fell asleep during the interview. She will be assessed in the morning.
[2022-08-03 05:17] VITALS: BP 120/76; PULSE 72; RESP 15; TEMP 36.3; O2SAT 95
[2022-08-03] MEDS: Omeprazole 20 MG CAPSULE.DR PO (05:46)
--- NOTE | 2022-08-03 05:46 | PC.NURSE ---
Patient slept through the night, no distress observed/reported, medication compliant, pending methadone verification, labs completed/resulted, behavior demanding, confrontational and argumentative, mood labile, patient did not engage well with care team, disposition JUAN follow up, coherent thought process, VSS, will continue to monitor.
--- NOTE | 2022-08-03 09:17 | PC.NURSE ---
call to [facility] [phone], left message for Methadone dosage
--- NOTE | 2022-08-03 09:53 | PC.NURSE ---
Call to [facility], Unable to verify Methadone dose at this time. Pt tearful and anxious. message left for .
[2022-08-03] MEDS: OXcarbazepine 300 MG TABLET PO (10:44)
[2022-08-03] MEDS: LORazepam 1 MG TABLET PO (10:44)
[2022-08-03] MEDS: Topiramate 100 MG TABLET 150 MG PO (10:45)
[2022-08-03] MEDS: hydrOXYzine HCL 50 MG TABLET PO (10:47)
[2022-08-03] MEDS: Gabapentin 400 MG CAPSULE 800 MG PO (10:47)
[2022-08-03] MEDS: Loratadine 10 MG TABLET PO (10:47)
== END 2022-08-03 14:49 | disposition home or self-care (01) ==
PROVIDERS: Emergency Provider Emergency Medicine; PCP Internal Medicine
DX: F31.9 Bipolar disorder, unspecified (principal); F22 Delusional disorders; R45.1 Restlessness and agitation; F11.20 Opioid dependence, uncomplicated; F14.10 Cocaine abuse, uncomplicated; F41.9 Anxiety disorder, unspecified; F43.10 Post-traumatic stress disorder, unspecified; F17.210 Nicotine dependence, cigarettes, uncomplicated; Z79.899 Other long term (current) drug therapy
CPT/HCPCS: 36415; 80053; 80307; 81001; 81025; 85025; 87086; 87635; 96372; 99285; J2060; S9485

== ENCOUNTER 2022-09-03 20:24 | Emergency (ER) | payer MEDICAID, SELFPAY ==
[2022-09-03 20:30] VITALS: BP 120/80; PULSE 96; O2SAT 98
[2022-09-03 20:45] VITALS: BP 111/68; PULSE 92; RESP 20; TEMP 36.6; O2SAT 97; BMI 20.6
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
[2022-09-03] MEDS: Diphth,Pertus(ACell),Tet Adult 0.5 ML SYRINGE IM (20:59)
--- NOTE | 2022-09-03 21:27 | PC.NURSE ---
Lac to L wrist cleaned up, steri stripped, and wrapped in dressing. tetanus shot updated. pt in pd custody.
[2022-09-03] MEDS: Naloxone HCl Nasal 4 MG SPRAY NOSTRILALT (22:06)
[2022-09-03 22:07] VITALS: BP 101/74; PULSE 65; RESP 12; O2SAT 98
--- NOTE | 2022-09-03 22:22 | PC.NURSE ---
pt GIVEN narcan nasal d/t inability TO AROUSE PT AT TIME OF DISCHARGE. PT NOT STAYING AWAKE ONLY AROUSABLE TO STERNAL RUB. NARCAN ADMINISTERED NOW PT TO BE WATCHED FOR 1 HR UNTIL SHE CAN BE RELEASED INTO PD CUSTODY
--- NOTE | 2022-09-03 22:59 | PC.NURSE ---
pt stable ready to be released into police custody. pt yelling , speaking sentences clearly and appropriately. pt demanding methadone stating she is going through withdrawals. pt informed she was just given narcan for somnolence and inability to arouse.
== END 2022-09-03 23:21 ==
PROVIDERS: Emergency Provider Student in an Organized Health Care Education/Training Program; PCP Internal Medicine
DX: S51.812A Laceration without foreign body of left forearm, initial encounter (principal); Y04.2XXA Assault by strike against or bumped into by another person, initial encounter; F11.20 Opioid dependence, uncomplicated; F14.10 Cocaine abuse, uncomplicated; F31.9 Bipolar disorder, unspecified; Y93.9 Activity, unspecified; Y92.019 Unspecified place in single-family (private) house as the place of occurrence of the external cause; Y99.9 Unspecified external cause status
CPT/HCPCS: 90471; 90715; 99284

== ENCOUNTER 2022-12-18 08:56 | Emergency (ER) | payer MEDICAID, SELFPAY ==
--- NOTE | ~2022-12-18 | XR_ITS ---
EXAMINATION: XR HAND, LEFT CLINICAL INFORMATION: The patient states she saw a bug in her thumb and tried to cut it out. PT also unable to remove ring from 4th digit. COMPARISON: None available. TECHNIQUE: PA, lateral, and oblique views of the left hand. FINDINGS: There is soft tissue swelling seen in the distal thumb. The bones and soft tissues are otherwise normal. No fracture. Alignment is anatomic. Joint spaces are maintained. No erosions or soft tissue calcifications. XR/XR hand LT min 3V IMPRESSION: Soft tissue swelling without fracture.
[2022-12-18 08:58] VITALS: BP 90/53; PULSE 62; RESP 18; TEMP 36.8; O2SAT 97; BMI 20.4
--- NOTE | 2022-12-18 09:53 | ED_ITS ---
HPI - General Adult General Chief complaint: General Medical Stated complaint: l thumb infection Time Seen by Provider: 12/18/22 09:52 Source: patient Mode of arrival: ambulatory Limitations: other (poor historian ) History of Present Illness HPI narrative: This is a 37-year-old female history of bipolar disorder, opiate use disorder, polymicrobial bacterial infection presenting to the emergency department for evaluation of cut on left thumb that has been present for weeks, patient reports she has a blood infection due to this cut which she was diagnosed with about 2 weeks ago at [facility], patient left AMA. She reports the cut happened after trying to cut bug out of my thumb & trying to amputate my finger . Denies numbness, tingling, fevers, chills, cp, sob, nausea, vomiting, abd pain. No SI or HI. Related Data Home Medications Medication Instructions Recorded Confirmed clonidine HCl 0.1 mg tablet 1 tab PO TID PRN Anxiety 04/15/22 08/02/22 hydroxyzine pamoate 50 mg capsule 1 cap PO TID 04/15/22 08/02/22 oxcarbazepine 300 mg tablet 1 tab PO BID 04/15/22 08/02/22 topiramate 50 mg tablet 150 mg PO DAILY 04/15/22 08/02/22 trazodone 100 mg tablet 200 mg PO BEDTIME 04/15/22 08/02/22 atomoxetine 100 mg capsule 100 mg PO DAILY 06/21/22 08/02/22 (Strattera) clonazepam 0.5 mg tablet 0.5 mg PO BID PRN Anxiety 06/21/22 08/02/22 gabapentin 800 mg tablet 800 mg PO TID 06/21/22 08/02/22 olanzapine 10 mg tablet 10 mg PO BEDTIME 06/21/22 08/02/22 methadone 140 mg PO DAILY 07/08/22 07/08/22 loratadine 10 mg tablet 10 mg PO DAILY 08/02/22 08/02/22 omeprazole 20 mg capsule,delayed 20 mg PO DAILY@0630 08/02/22 08/02/22 release Previous Rx's Medication Instructions Recorded cephalexin 500 mg tablet 500 mg PO Q6H 10 days #40 tabs 12/18/22 doxycycline hyclate 100 mg capsule 100 mg PO BID 10 days #20 caps 12/18/22 Allergies Allergy/AdvReac Type Severity Reaction Status Date / Time No Known Allergies Allergy Verified 12/18/22 08:57 [No Known Allergies*] Review of Systems 2 Review of Systems: Constitutional : No Weight loss, No Fever, No Chills, No Fatigue, No Malaise ENT/Mouth : No sore throat, No Rhinorrhea Eyes: No Eye Pain, No Swelling, No Redness Cardiovascular : No Chest Pain, No SOB, No Dyspnea on Exertion, No Orthopnea, No Edema, No Palpitations Respiratory : No Cough, No Sputum, No Wheezing Gastrointestinal : No Nausea, No Vomiting, No Diarrhea, No Constipation, No abdominal Pain, No Hematochezia, No Melena Genitourinary : No Dysuria, No Urinary Frequency, No Hematuria, Musculoskeletal : No joint pain, No Myalgias, No Joint Swelling Skin : No Skin Lesions, No rash, + laceration Neuro : No Weakness, No Numbness, No Dizziness, No Headache Psych : No Anxiety/Panic, No Depression All other systems reviewed and are negative Yes all other systems are reviewed and are negative [facility] Past Medical History Attestation statement: The following information was validated with the patient. Source: old records reviewed and nursing notes reviewed Medical History Acute anxiety Anxiety Atypical bipolar disorder Depression Depression Drug-induced psychotic disorder History of drug dependence/abuse Opiate withdrawal PTSD (post-traumatic stress disorder) Social History Social History Household Members: None Household Members Other:: grandmother Housing: Unknown / Unable to assess Do you presently have visiting nurse or other home services: No Unable to assess alcohol history related to: Unknown 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: current 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 frequency: a few times a week Alcohol type: beer, wine and hard liquor Patient Tobacco Use Status: Tobacco use Unknown Cigarette Packs Per Day: 1.5 Cigarettes Per Day: 30.0 Years Smoked: 23 Second Hand Smoke Exposure: Yes Substance Use Type: Crack/Cocaine, Heroin, IV Drugs and Opiates Advance Directives: No service: No Current occupational status: unemployed Sexual orientation: Straight/Heterosexual Physical Exam ED Vital Signs: Vital Signs - 24 hr 12/18/22 08:58 12/18/22 12:17 Temperature 98.2 F 98.2 F Pulse Rate 62 51 Respiratory Rate 18 16 Blood Pressure 90/53 L 102/68 Pulse Oximetry 97 97 Oxygen Delivery Method Room Air Room Air BMI result Body Mass Index 20.4 vss Appearance: Alert.? Oriented X3.? No acute distress.? Head: Normocephalic, atraumatic, no step-offs or deformities Eyes: Pupils equal, round and reactive to light.? CVS: Normal heart rate and rhythm.? Pulses normal.? Respiratory: No respiratory distress.? Breath sounds normal.? Abdomen: Soft and nontender.? Skin: Skin warm and dry.? Normal skin color.? Normal skin turgor.? Extremities: No lower extremity edema.? No calf ttp. 5/5 strength to bilateral upper and lower extremities 2+ radial pulses equal and b/l. No wrist drop. Cap refil < 2 seconds b/l UE digits. L 1st digit w/ open wound to distal aspect ( see images ) Back: No midline tenderness, no C-spine tenderness, full range of motion, no CVA tenderness bilaterally Neuro: Oriented X 3.? No motor deficit.? No sensory deficit. CN 2-12 intact Course Reevaluation(s) Reevaluation #1: Patient a very difficult stick, nursing has tried multiple times, techs tried. Patient screaming that they do not know other doing, telling them to take the needle out of her hand. She is refusing labs at this time. Will continue to encourage patient to allow nursing to obtain labs as this can help us properly guide her treatment. Time: 11:37 Reevaluation #2: Delay again due to patient being a difficult stick. Phlebotomy and more nurses trying. Delay in labs, atbx. Patient reports pain will switch IV toradol to IMm toradol Time: 12:48 Reevaluation #3: CBC appears to be wnl. Lactic wnl. Chemistry pending. Time: 13:03 Additional Reevaluation(s): Chemistry unremarkable. I did discuss this case with my attending who agrees that patient can be discharged home with p.o. antibiotics with wound care follow-up. No signs of osteo. Normal inflammatory markers. Educated patient on diagnosis and treatment plan, answered all question, patient verbalizes understanding. At this time patient will be discharged home, advised to return with new or worsening symptoms. Educated on worrisome signs and symptoms and when to return. At this time I feel comfortable discharge home. 1419 Upon chart review patient was noted to have a felon to the left thumb, she did have bedside incision and drainage done at [facility] but did not follow-up as outpatient. Medications Administered Discontinued Medications Generic Name Dose Route Start Last Admin Trade Name Radha PRN Reason Stop Dose Admin Sodium Chloride 1,619.31 mls @ 1,619.31 mls/hr 12/18/22 10:15 12/18/22 13:03 Ns 30 ml/kg infuse over 1 hr (1619.31 ml) 12/18/22 11:14 1,619.31 mls/hr IV Administration .Q1H STA Ketorolac Tromethamine 30 mg 12/18/22 12:48 12/18/22 13:06 Ketorolac Tromethamine 15 Mg/Ml Vial IM 12/18/22 12:49 30 mg ONCE ONE Administration Medical Decision Making Medical Decision Making [facility] Narrative: 0955 This is a 37-year-old female presenting with infection to left thumb status post trying to cut a bug out of her thumb. Tells me she was recently at a local hospital with a ?blood infection ?. Physical exam No lower extremity edema.? No calf ttp. 5/5 strength to bilateral upper and lower extremities 2+ radial pulses equal and b/l. No wrist drop. Cap refil < 2 seconds b/l UE digits. L 1st digit w/ open wound to distal aspect ( see images ) This is likely a cellulitis vs osteomyelitis . No signs of, NV compromise, threat to limb. No signs of arterial or venous occlusion. Bassed off chart review patient sprevious cultures + MRSA Plan labs, urine, xray When I went to [place] patient, giving nursing a hard time, does not want them to draw labs. Will try to obtain [facility] records Differential Diagnosis Differential Diagnoses: The differential diagnosis associated with the presentation includes This is likely a cellulitis vs osteomyelitis . No signs of, NV compromise, threat to limb. No signs of arterial or venous occlusion. Admission/Observation Consideration of admission/observation: Escalation of care including admission/observation considered Considered hospital admission however no white count, no lactic acidosis, no fever, patient should trial p.o. antibiotics and follow-up with wound care. No signs of osteomyelitis Lab Data [facility] Lab Attestation statement: I reviewed the patient's lab results. 12/18/22 12:39 12/18/22 12:38 Labs: Lab Results 12/18/22 12/18/22 Range/Units 12:38 12:39 WBC 5.4 (4.8-10.8) X10*3/uL RBC 3.62 L (4.20-5.50) X10*6/uL Hgb 10.0 L (12.0-16.0) g/dl Hct 32.7 L (37.0-47.0) % MCV 90.3 (80.0-98.0) fL MCH 27.6 (27.0-33.0) pg MCHC 30.6 L (31.0-35.0) g/dl RDW 15.1 (11.0-16.0) % Plt Count 227 (160-400) X10*3/uL MPV 9.8 (9.4-12.3) fL Immature Gran % (Auto) 0.2 (0.0-0.4) % Neut % (Auto) 58.0 (45-73) % Lymph % (Auto) 34.3 (20-40) % Piatt % (Auto) 5.4 (2-11) % Eos % (Auto) 1.7 (0-4) % Baso % (Auto) 0.4 (0-2) % Lymph # (Auto) 1.8 (1.2-4.9) X10*3/uL Piatt # (Auto) 0.3 (0.1-1.2) X10*3/uL Eos # (Auto) 0.1 (0.0-0.4) X10*3/uL Baso # (Auto) 0.0 (0.0-0.2) X10*3/uL Abs Immat Gran (auto) 0.01 (0.00-0.03) X10*3/uL Absolute Neuts (auto) 3.1 (2.0-8.3) x10*3/uL Absolute Nucleated RBC 0.000 (0.0-0.012) X10*3/uL Nucleated RBC % (auto) 0.0 (0.0-0.2) /100WBC ESR 18 (0-20) MM/HR Sodium 140 (135-145) mmol/L Potassium 4.4 D (3.3-5.1) mmol/L Chloride 107 (96-108) mmol/L Carbon Dioxide 26 (22-29) mmol/L Anion Gap 11 L (12-20) BUN 14 (9-16) mg/dL Creatinine 0.74 (0.5-1.4) mg/dL Estim Creat Clear Calc 89.5 Estimated GFR > 60 Random Glucose 91 (60-115) mg/dL Lactic Acid 0.6 (0.5-2.0) mmol/L Calcium 9.2 (8.4-10.2) mg/dL Magnesium 2.2 (1.6-2.6) mg/dL Total Bilirubin 0.3 (0.0-1.0) mg/dL AST 17 (5-31) U/L ALT 11 (0-31) U/L Alkaline Phosphatase 49 (39-117) U/L C-Reactive Protein 0.46 (< or = 0.50) mg/dL Total Protein 7.0 (6.5-8.0) g/dL Albumin 3.8 (3.5-5.0) g/dL Independent Interpretation I performed an independent interpretation of an: Plain X-Ray Radiology Impression Discussion of test interpretation with radiology: I have reviewed the radiologist's reading. External Record Review External record reviewed: Office record, Outpatient record, Prior outpatient labs, Prior outpatient radiology and Outside ED record Records obtained from [facility] and in patient's chart Chronic Conditions Patient?s care impacted by: Other (Opiate use disorder.) Social Determinants Patient?s care significantly limited by Social Determinants of Health including: Inadequate housing, Low income, Alcoholism and drug addiction in family, Problems related to primary support group, Unemployment, Problems related to employment and Other Social Determinant of Health Critical Care Time Critical Care Time Critical Care Time: No Discharge Plan Discharge Clinical Impression: Open wound Patient Disposition: Home, Self-Care Additional Instructions: Take your medications as prescribed. If you were prescribed antibiotics today, it is important that you take your medication to their entirety, do not skip any doses, do not finish them early. Follow-up with your primary care provider this week. Return to the emergency department with new or worsening symptoms. Such as fevers, chills, chest pain, shortness of breath, nausea, vomiting, dizziness, headache, vision changes, lethargy In case of emergency call 911 Follow up with the wound care center Prescriptions: New doxycycline hyclate 100 mg capsule 100 mg PO BID 10 Days Qty: 20 0RF cephalexin 500 mg tablet 500 mg PO Q6H 10 Days Qty: 40 0RF No Action clonidine HCl 0.1 mg tablet 1 tab PO TID PRN (Reason: Anxiety) hydroxyzine pamoate 50 mg capsule 1 cap PO TID trazodone 100 mg tablet 200 mg PO BEDTIME oxcarbazepine 300 mg tablet 1 tab PO BID topiramate 50 mg tablet 150 mg PO DAILY olanzapine 10 mg tablet 10 mg PO BEDTIME clonazepam 0.5 mg tablet 0.5 mg PO BID PRN (Reason: Anxiety) gabapentin 800 mg tablet 800 mg PO TID atomoxetine [Strattera] 100 mg capsule 100 mg PO DAILY methadone 140 mg PO DAILY omeprazole 20 mg capsule,delayed release(DR/EC) 20 mg PO DAILY@0630 loratadine 10 mg Tablet 10 mg PO DAILY Referrals: [facility] [place] Group] - 1 day Stand Alone Forms: Work/School Release
--- NOTE | 2022-12-18 10:25 | MHC.EDTECH ---
pt is an IV drug user, difficult stick. this tech attempted to get labs, pt stated that she needs someone that knows what they're doing , pt complained of too much pain from the tourniquet and the needle on both attempts to get labs, unable to obtain. RN aware.
--- NOTE | 2022-12-18 10:35 | PC.NURSE ---
difficult IV stick, pt would not allow this RN to access her left arm d/t pain in her thumb. states she has to shoot up in her neck
--- NOTE | 2022-12-18 11:07 | PC.NURSE ---
unable to get an iv angio yet. Tamela NICHOLSON will try to place an IV via ultrasound.
--- NOTE | 2022-12-18 11:34 | PC.NURSE ---
Patient wants to eat spoke to Tamela NICHOLSON states she can't eat because she might need surgery. Patient states she doesn't care she wants to eat. She will sign out AMA and check back in.
[2022-12-18 12:17] VITALS: BP 102/68; PULSE 51; RESP 16; TEMP 36.8; O2SAT 97
[2022-12-18 12:56] LABS: Basophils Percent Auto 0.4 % (0-2); Eosinophils Absolute Auto 0.1 X10*3/uL (0.0-0.4); Eosinophils Percent Auto 1.7 % (0-4); Hematocrit 32.7 % (37.0-47.0); Imm Gran Abs Auto 0.01 X10*3/uL (0.00-0.03); Imm Gran Pct Auto 0.2 % (0.0-0.4); Lymphocytes Absolute Auto 1.8 X10*3/uL (1.2-4.9); Lymphocytes Percent Auto 34.3 % (20-40); Mean Corpuscular HGB Conc 30.6 g/dl (31.0-35.0); Mean Corpuscular Hemoglobin 27.6 pg (27.0-33.0); Mean Corpuscular Volume 90.3 fL (80.0-98.0); Mean Platelet Volume 9.8 fL (9.4-12.3); Monocytes Absolute Auto 0.3 X10*3/uL (0.1-1.2); Monocytes Percent Auto 5.4 % (2-11); Neutrophils Absolute Auto 3.1 x10*3/uL (2.0-8.3); Platelet Count 227 X10*3/uL (160-400); Red Blood Count 3.62 X10*6/uL (4.20-5.50); Red Cell Distribution Width 15.1 % (11.0-16.0); White Blood Count 5.4 X10*3/uL (4.8-10.8)
[2022-12-18 12:57] LABS: Lactic Acid 0.6 mmol/L (0.5-2.0)
[2022-12-18] MEDS: 0.9 % Sodium Chloride 1,619.31 ML 1619.31 ML IV (13:03)
[2022-12-18] MEDS: Ketorolac Tromethamine 15 MG/ML VIAL 30 MG IM (13:06)
[2022-12-18 13:46] LABS: Erythrocyte Sedimentation Rate 18 MM/HR (0-20)
[2022-12-18 14:09] LABS: MANUAL DIFF FLAG NO
[2022-12-18 14:13] LABS: Alanine Aminotransferase 11 U/L (0-31); Albumin Level 3.8 g/dL (3.5-5.0); Alkaline Phosphatase 49 U/L (39-117); Anion Gap 11 (12-20); Aspartate Amino Transferase 17 U/L (5-31); Bilirubin Total 0.3 mg/dL (0.0-1.0); Blood Urea Nitrogen 14 mg/dL (9-16); C Reactive Protein 0.46 mg/dL (< or = 0.50); Calcium 9.2 mg/dL (8.4-10.2); Carbon Dioxide 26 mmol/L (22-29); Chloride 107 mmol/L (96-108); Creatinine Clr Calc Pharmacy 89.5; Estimated Glomerular Filt Rate > 60; Glucose Random 91 mg/dL (60-115); Magnesium 2.2 mg/dL (1.6-2.6); Potassium 4.4 mmol/L (3.3-5.1); Sodium 140 mmol/L (135-145)
== END 2022-12-18 15:05 | disposition home or self-care (01) ==
PROVIDERS: Physician Assistant; Emergency Provider Emergency Medicine
DX: S61.002A Unspecified open wound of left thumb without damage to nail, initial encounter (principal); W26.9XXA Contact with unspecified sharp object(s), initial encounter; F17.210 Nicotine dependence, cigarettes, uncomplicated; F11.20 Opioid dependence, uncomplicated; F31.9 Bipolar disorder, unspecified; F14.10 Cocaine abuse, uncomplicated; Y93.9 Activity, unspecified; Y92.9 Unspecified place or not applicable; Y99.9 Unspecified external cause status; Z79.899 Other long term (current) drug therapy
CPT/HCPCS: 36415; 73130; 80053; 83605; 83735; 85025; 85652; 86140; 87040; 96372; 99284; J1885

== ENCOUNTER 2022-12-22 17:26 | Emergency (ER) | payer MEDICAID, SELFPAY ==
[2022-12-22 18:15] VITALS: BP 132/96; PULSE 84; O2SAT 98
== END 2022-12-22 20:25 | disposition left against medical advice (07) ==
PROVIDERS: Emergency Provider Emergency Medicine; PCP Internal Medicine
DX: S61.019A Laceration without foreign body of unspecified thumb without damage to nail, initial encounter (principal); X58.XXXA Exposure to other specified factors, initial encounter; Y93.9 Activity, unspecified; Y92.9 Unspecified place or not applicable; Y99.9 Unspecified external cause status

== ENCOUNTER 2022-12-29 04:04 | Emergency (ER) | payer MEDICAID, OTHER, SELFPAY ==
[2022-12-29 04:20] VITALS: BP 133/81; PULSE 114; RESP 18; TEMP 36.7; O2SAT 97; BMI 19.9
[2022-12-29 05:27] LABS: Basophils Percent Auto 0.4 % (0-2); Eosinophils Absolute Auto 0.1 X10*3/uL (0.0-0.4); Eosinophils Percent Auto 0.6 % (0-4); Hematocrit 32.4 % (37.0-47.0); Hemoglobin 10.1 g/dl (12.0-16.0); Imm Gran Abs Auto 0.02 X10*3/uL (0.00-0.03); Imm Gran Pct Auto 0.2 % (0.0-0.4); Lymphocytes Absolute Auto 1.4 X10*3/uL (1.2-4.9); Lymphocytes Percent Auto 17.7 % (20-40); MANUAL DIFF FLAG NO; Mean Corpuscular HGB Conc 31.2 g/dl (31.0-35.0); Mean Corpuscular Hemoglobin 27.7 pg (27.0-33.0); Mean Corpuscular Volume 88.8 fL (80.0-98.0); Mean Platelet Volume 9.3 fL (9.4-12.3); Monocytes Absolute Auto 0.6 X10*3/uL (0.1-1.2); Monocytes Percent Auto 7.4 % (2-11); Neutrophils Absolute Auto 5.9 x10*3/uL (2.0-8.3); Neutrophils Percent Auto 73.7 % (45-73); Platelet Count 333 X10*3/uL (160-400); Red Blood Count 3.65 X10*6/uL (4.20-5.50); Red Cell Distribution Width 14.1 % (11.0-16.0)
[2022-12-29 05:32] VITALS: BP 133/81; PULSE 114; RESP 18; TEMP 36.7; O2SAT 97
--- NOTE | 2022-12-29 05:47 | PC.NURSE ---
PT biba from home with cop examiner presence. Pt reporting she heard chainsaw and screaming and believes neighbor was murdered. Pt reports she used crack and coke prior to arrival. PT states she believes she is dying because of a finger wound with sutures that has bugs in it . Wound his dry with no obvious signs of infections. Dried blood is apparent. PT appears to be picking at wound. PT reports she stopped taking all of her medications including antibiotics one week ago because she was so concerned about her thumb. 15 min checks initiated, pt belongings searched and placed in locker 2, pt changed over into hospital gown, labs ordered and drawn. Med rec completed, consult to care team and regular diet ordered. PT attempted to provide urine sample but states sample fell into toilet. PT will try again at a later time. Plan of care ongoing
[2022-12-29 05:48] LABS: Alanine Aminotransferase 21 U/L (0-31); Albumin Level 4.6 g/dL (3.5-5.0); Alkaline Phosphatase 54 U/L (39-117); Anion Gap 17 (12-20); Aspartate Amino Transferase 50 U/L (5-31); Bilirubin Total 0.5 mg/dL (0.0-1.0); Blood Urea Nitrogen 22 mg/dL (9-16); Carbon Dioxide 23 mmol/L (22-29); Chloride 104 mmol/L (96-108); Creatinine Clr Calc Pharmacy 62.6; Estimated Glomerular Filt Rate > 60; Ethanol < 10 mg/dL; Glucose Random 119 mg/dL (60-115); Potassium 3.6 mmol/L (3.3-5.1); Sodium 140 mmol/L (135-145)
--- NOTE | 2022-12-29 05:55 | PC.NURSE ---
Pt provided two sandwiches, pudding, jello, a dozen saltines and claire crackers, gingerale and two apple juices. Pt stating she is being denied food by this RN and tech though pt requests continue to be granted. Diet order placed as well. Plan of care ongoing
--- NOTE | 2022-12-29 06:19 | PC.NURSE ---
Provider at bedside at this time assessing pt.
[2022-12-29] MEDS: LORazepam 2 MG/ML VIAL IM (06:27)
[2022-12-29] MEDS: Haloperidol Lactate 5 MG/ML VIAL 10 MG IM (06:27)
--- NOTE | 2022-12-29 07:19 | PC.NURSE ---
patient appears to remain asleep at present respirations are even and unlabored patient appears in no distress
--- NOTE | 2022-12-29 07:38 | ED.PSYCH ---
HPI - Psych General Chief Complaint: Psychiatric Symptoms Stated Complaint: panic attack after drug use Time Seen by Provider: 12/29/22 06:15 Source: patient Mode of arrival: EMS Limitations: other (Paranoid ideation) History of Present Illness HPI Narrative: 37-year-old female who presents emergency department for evaluation of paranoid ideation, auditory hallucinations and polysubstance use disorder. According to nursing notes, the patient was hearing a chainsaw and screaming. The patient believed that her neighbor was being murdered. She told me that she has been using crack cocaine for days. She also states she has been injecting heroin daily as well.. She states that she has noticed black spiders crawling out of her skin. She was convinced that there is a black spider that is moving under the skin of her left thumb. The patient was evaluated here in the emergency department on 12/18/2022 for infected laceration to her left thumb. In reviewing the note, 2 weeks prior to the ED evaluation, the patient try to cut a spider of her left thumb by trying to amputate her finger. Patient's laceration was repaired at [facility]. At the time of her evaluation on 12/18/2022, her laboratory evaluation was unremarkable when she was treated for cellulitis with doxycycline and cephalexin. Related Data Home Medications Medication Instructions Recorded Confirmed clonidine HCl 0.1 mg tablet 1 tab PO TID PRN Anxiety 04/15/22 12/29/22 topiramate 50 mg tablet 50 mg PO DAILY 04/15/22 12/29/22 trazodone 100 mg tablet 200 mg PO BEDTIME 04/15/22 12/29/22 atomoxetine 100 mg capsule 100 mg PO DAILY 06/21/22 12/29/22 (Strattera) gabapentin 800 mg tablet 800 mg PO TID 06/21/22 12/29/22 methadone 140 mg PO DAILY 07/08/22 07/08/22 propranolol 10 mg tablet 10 mg PO BID PRN agitation 12/29/22 12/29/22 quetiapine 200 mg tablet 200 mg PO BEDTIME depressive 12/29/22 12/29/22 disorder quetiapine 50 mg tablet 50 mg PO DAILY PRN depressive 12/29/22 12/29/22 disorder Previous Rx's Medication Instructions Recorded cephalexin 500 mg tablet 500 mg PO Q6H 10 days #40 tabs 12/18/22 Allergies Allergy/AdvReac Type Severity Reaction Status Date / Time No Known Allergies Allergy Verified 12/18/22 08:57 [No Known Allergies*] Review of Systems Review of Systems: Yes all other systems are reviewed and are negative [facility] Past Medical History [facility] Narrative: Social history: She she does smoke cigarettes. She denies alcohol use. She admits to using injection heroin daily and smoking crack cocaine daily for several days. Medical History History of drug dependence/abuse Atypical bipolar disorder Opiate withdrawal Acute anxiety Drug-induced psychotic disorder Depression PTSD (post-traumatic stress disorder) Anxiety Depression Social History Social History Household Members: None Household Members Other:: grandmother Housing: Unknown / Unable to assess Do you presently have visiting nurse or other home services: No Unable to assess alcohol history related to: Unknown 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: never Patient Tobacco Use Status: Tobacco use Unknown Cigarette Packs Per Day: 1.5 Cigarettes Per Day: 30.0 Years Smoked: 23 Smoked in Last 30 Days: No Second Hand Smoke Exposure: Yes Use of substances other than those prescribed or required for medical reasons: Yes Substance Use Type: Crack/Cocaine and Heroin Last Used Substance: Hours (ago) Advance Directives: No Advance Directives Information Provided: No service: No Current occupational status: unemployed Sexual orientation: Straight/Heterosexual Physical Exam Vital Signs: Vital Signs: Last Vital Signs Temp 98.0 F 12/29/22 05:32 Pulse 114 H 12/29/22 05:32 Resp 18 12/29/22 05:32 BP 133/81 12/29/22 05:32 Pulse Ox 97 12/29/22 05:32 O2 Del Method Room Air 12/29/22 05:32 BMI result Body Mass Index 19.9 Vital signs revealed an elevated pulse of 114-most likely secondary to crack cocaine use Exam: General: Awake, alert, patient is agitated and paranoid, she points to several areas on her skin where she thinks there are insects and spiders under her skin. She is also concerned that under her left skin wound there is a spider. Head: Normocephalic, atraumatic EENT: PERRL, Lids normal, sclera normal, conjunctiva normal, nose normal , ears normal, throat without erythema or exudates Neck: Supple, no adenopathy, trachea midline and nontender Lung: breath sounds symmetric, no wheezing, rales or rhonchi Chest: symmetric movement, nontender Heart: Tachycardia,, normal S1, S2 no murmurs or rubs Abdomen: soft, non-tender, nondistended, normal bowel sounds Back: no vertebral tenderness, no CVAT Extremities: no deformities, moves all extremities symmetrically Skin: Patient has multiple areas of ecchymosis on her body as well as multiple track nieves on both arms, patient's left thumb has sutures that are still in place and over the finger pad there is a cicatrix. There is no increased erythema or increased warmth. Neuro: Awake, alert, oriented, pressured speech, cranial nerves intact, moves all extremities symmetrically Psych: Patient appears to be paranoid, agitated, she has delusional parasitosis Medications Administered Discontinued Medications Generic Name Dose Route Start Last Admin Trade Name Freq PRN Reason Stop Dose Admin Haloperidol Lactate 10 mg 12/29/22 06:22 12/29/22 06:27 Haloperidol Lactate 5 Mg/Ml Vial IM 12/29/22 06:23 10 mg ONCE ONE Administration Lorazepam 2 mg 12/29/22 06:22 12/29/22 06:27 Lorazepam 2 Mg/Ml Vial IM 12/29/22 06:23 2 mg STAT STA Administration Medical Decision Making Medical Decision Making [facility] Narrative: 37-year-old female history of bipolar disorder, daily injection opiate use disorder, daily crack cocaine use polymicrobial bacterial infection who presents emergency department for evaluation of auditory hallucinations that started this morning and delusional parasitosis times weeks. The patient was agitated and very anxious. I did offer the patient IM and oral medications prior to help her calm down and she requested that I give her IM medications. Patient was given Haldol 10 mg IM and Ativan 2 mg IM. 0748: Start physician observation Patient's WBC was normal, patient is anemic but this is chronic. Patient's CMP was unremarkable. Patient's ETOH was below detectable limits. Urine drug screen is pending collection. Patient is medically cleared for psychiatric evaluation. At the end of my shift, the patient is waiting for care team evaluation, therefore the patient's care was turned over to my colleague, Dr. Devaughn Oviedo. Differential Diagnosis Differential Diagnoses: The differential diagnosis associated with the presentation includes Differential diagnosis includes was not limited to depression, anxiety, polysubstance use disorder (heroin and crack cocaine), delusional parasitosis. Admission/Observation Consideration of admission/observation: Escalation of care including admission/observation considered Lab Data MDM Lab Attestation statement: I reviewed the patient's lab results. My interpretation patient's laboratory evaluation as follows: Anemia with an H&H of 10.1 and 32.4-this is chronic. Glucose elevated 119. BUN elevated 22. AST elevated 50 12/29/22 05:22 12/29/22 05:22 Labs: Lab Results 12/29/22 Range/Units 05:22 WBC 8.0 (4.8-10.8) X10*3/uL RBC 3.65 L (4.20-5.50) X10*6/uL Hgb 10.1 L (12.0-16.0) g/dl Hct 32.4 L (37.0-47.0) % MCV 88.8 (80.0-98.0) fL MCH 27.7 (27.0-33.0) pg MCHC 31.2 (31.0-35.0) g/dl RDW 14.1 (11.0-16.0) % Plt Count 333 D (160-400) X10*3/uL MPV 9.3 L (9.4-12.3) fL Immature Gran % (Auto) 0.2 (0.0-0.4) % Neut % (Auto) 73.7 H (45-73) % Lymph % (Auto) 17.7 L (20-40) % [place] % (Auto) 7.4 (2-11) % Eos % (Auto) 0.6 (0-4) % Baso % (Auto) 0.4 (0-2) % Lymph # (Auto) 1.4 (1.2-4.9) X10*3/uL [place] # (Auto) 0.6 (0.1-1.2) X10*3/uL Eos # (Auto) 0.1 (0.0-0.4) X10*3/uL Baso # (Auto) 0.0 (0.0-0.2) X10*3/uL Abs Immat Gran (auto) 0.02 (0.00-0.03) X10*3/uL Absolute Neuts (auto) 5.9 (2.0-8.3) x10*3/uL Absolute Nucleated RBC 0.000 (0.0-0.012) X10*3/uL Nucleated RBC % (auto) 0.0 (0.0-0.2) /100WBC Sodium 140 (135-145) mmol/L Potassium 3.6 (3.3-5.1) mmol/L Chloride 104 (96-108) mmol/L Carbon Dioxide 23 (22-29) mmol/L Anion Gap 17 (12-20) BUN 22 H (9-16) mg/dL Creatinine 1.03 (0.5-1.4) mg/dL Estim Creat Clear Calc 62.6 Estimated GFR > 60 Random Glucose 119 H (60-115) mg/dL Calcium 10.0 D (8.4-10.2) mg/dL Total Bilirubin 0.5 (0.0-1.0) mg/dL AST 50 H (5-31) U/L ALT 21 (0-31) U/L Alkaline Phosphatase 54 (39-117) U/L Total Protein 8.0 (6.5-8.0) g/dL Albumin 4.6 (3.5-5.0) g/dL Ethyl Alcohol < 10 mg/dL Chronic Conditions Patient?s care impacted by: Other (Injection opiate use, crack cocaine use) Discharge Plan Discharge Clinical Impression: Paranoid ideation, Delusions of parasitosis, Crack cocaine use, Opiate use Patient Disposition: Still a Patient Prescriptions: No Action clonidine HCl 0.1 mg tablet 1 tab PO TID PRN (Reason: Anxiety) trazodone 100 mg tablet 200 mg PO BEDTIME topiramate 50 mg tablet 50 mg PO DAILY gabapentin 800 mg tablet 800 mg PO TID atomoxetine [Strattera] 100 mg capsule 100 mg PO DAILY methadone 140 mg PO DAILY cephalexin 500 mg tablet 500 mg PO Q6H 10 Days Qty: 40 0RF quetiapine 200 mg tablet 200 mg PO BEDTIME propranolol 10 mg tablet 10 mg PO BID PRN (Reason: agitation) quetiapine 50 mg tablet 50 mg PO DAILY PRN (Reason: depressive disorder) Interventions: [place]-Suicide Risk Severity Scale Last Done: 12/29/22 05:32
[2022-12-29 13:49] VITALS: BP 110/64; PULSE 69; RESP 17; TEMP 36.5; O2SAT 100
--- NOTE | 2022-12-29 16:07 | PC.NURSE ---
pt clarified methadone clinic - goes to [facility] last dose: 12/25/22 at 0741, 125mg methadone per MANISHA Barnes. methadone verification faxed to pharmacy
--- NOTE | 2022-12-29 16:38 | HE.PHANOTE ---
Methadone Verification Pharmacy has received methadone verification from [facility]. Patient last received methadone 125 mg on 12/25/22 @ 0741 from [facility]. Confirm with Cameron RN at the clinic. Since patient missed 3 days of methadone, recommended to Dr. Oviedo to decrease today's dose to 94 mg (decrease by 25%) for one dose. Sumaya Melton, MarilynD
[2022-12-29] MEDS: methADONE HCl 20 MG/2 ML ORAL.CONC 94 MG PO (18:43)
[2022-12-29 20:17] VITALS: BP 116/57; PULSE 68; RESP 18; TEMP 36.7; O2SAT 100
[2022-12-29 20:21] LABS: Appearance Urine Cloudy; Color Urine Dark Yellow; Glucose Urine UA Negative (Negative); Leukocyte Esterase Urine Small (1+) (Negative); Nitrite Urine Negative (Negative); Specific Gravity - Urine >= 1.030 (1.005-1.025); UMIC TRIGGER UACC YES; Urine Blood Large (3+) (Negative); Urine Ketones Negative (Negative); Urine Protein 100 (2+) mg/dL (Neg-Trace)
[2022-12-29 20:22] LABS: UPreg QC Valid YES; Urine Pregnancy NEGATIVE (NEGATIVE)
[2022-12-29 20:28] LABS: Bacteria Urine None Seen (None Seen); RBC Urine >20 /HPF (0-2); UACC Culture Trigger YES
[2022-12-29 20:31] LABS: Amphetamine Screen Urine Not Detected (Not Detect); Barbiturates, Urine Not Detected (Not Detect); Benzodiazepines Screen Urine Not Detected (Not Detect); Cannabinoid Screen Urine Not Detected (Not Detect); Cocaine Screen Urine POSITIVE (Not Detect); Fentanyl, urine POSITIVE (Not Detect); Opiate Screen Urine POSITIVE (Not Detect); Phencyclidine Screen Urine Not Detected (Not Detect)
[2022-12-30 06:29] VITALS: BP 112/79; PULSE 76; RESP 17; TEMP 36.3; O2SAT 99
--- NOTE | 2022-12-30 06:35 | PC.NURSE ---
Patient slept through the night, no distress observed/reported, behavior non concerning, med rec completed/pending provider's approval, patient wasn't fully compliant with care team for evaluation, disposition is pending, patient will be reevaluated, VSS, will continue to monitor.
--- NOTE | 2022-12-30 08:28 | PC.NURSE ---
Sangeeta was OOB this morning and requesting discharge. She stated she was safe and denies SI. Sangeeta was offered a lyft to [facility] on [address] to get her methadone dose but she refused stating she just wanted her clothes and to leave on foot. Belongings were returned including zambrano that was covered in blood.
== END 2022-12-30 08:30 | disposition home or self-care (01) ==
PROVIDERS: Emergency Provider Emergency Medicine Emergency Medical Services
DX: F41.0 Panic disorder [episodic paroxysmal anxiety] (principal); R44.0 Auditory hallucinations; F14.10 Cocaine abuse, uncomplicated; F11.10 Opioid abuse, uncomplicated; F17.210 Nicotine dependence, cigarettes, uncomplicated; Z71.6 Tobacco abuse counseling; Z79.899 Other long term (current) drug therapy
CPT/HCPCS: 36415; 80053; 80307; 81001; 81025; 85025; 87086; 96372; 99285; J2060; S9485

== ENCOUNTER 2023-01-03 17:18 | Emergency (ER) | payer MEDICAID, OTHER, SELFPAY ==
[2023-01-03 17:30] VITALS: BP 122/84; PULSE 62; PULSE 79; RESP 14; TEMP 37.1; O2SAT 97; O2SAT 98; BMI 18.2
--- NOTE | 2023-01-03 18:05 | ED.PSYCH ---
HPI - Psych General Chief Complaint: Psychiatric Symptoms Stated Complaint: possible drug use, unknown substance, per ems Time Seen by Provider: 01/03/23 17:46 Source: patient Mode of arrival: ambulatory Limitations: no limitations History of Present Illness HPI Narrative: 37-year-old female who present to the emergency department by EMS for evaluation of paranoid ideation, polysubstance use disorder, possibly patient used a Street drugs. Came in by ambulance is screaming that she months to amputate her left thumb, patient had laceration to left thumb with suture. Patient denies numbness tingling, fever, chills, CP, SOB, nausea, vomiting, abdominal pain, patient appear to be high on drugs will need to be re-evaluated when she is more sober. Related Data Home Medications Medication Instructions Recorded Confirmed clonidine HCl 0.1 mg tablet 1 tab PO TID PRN Anxiety 04/15/22 12/29/22 topiramate 50 mg tablet 50 mg PO DAILY 04/15/22 12/29/22 trazodone 100 mg tablet 200 mg PO BEDTIME 04/15/22 12/29/22 atomoxetine 100 mg capsule 100 mg PO DAILY 06/21/22 12/29/22 (Strattera) methadone 125 mg PO DAILY 07/08/22 12/29/22 diphenhydramine HCl 50 mg capsule 50 mg PO BEDTIME PRN insomnia 12/29/22 12/29/22 (Banophen) divalproex 500 mg tablet,extended 500 mg PO BID depressive disorder 12/29/22 12/29/22 release 24 hr gabapentin 300 mg capsule 300 mg PO TID depressive disorder 12/29/22 12/29/22 propranolol 10 mg tablet 10 mg PO BID PRN agitation 12/29/22 12/29/22 quetiapine 200 mg tablet 200 mg PO BEDTIME depressive 12/29/22 12/29/22 disorder quetiapine 50 mg tablet 50 mg PO DAILY PRN depressive 12/29/22 12/29/22 disorder Previous Rx's Medication Instructions Recorded nitrofurantoin 100 mg PO Q12H 7 days #14 caps 01/04/23 monohydrate/macrocrystals 100 mg capsule (Macrobid) Allergies Allergy/AdvReac Type Severity Reaction Status Date / Time No Known Allergies Allergy Verified 01/03/23 17:33 [No Known Allergies*] Review of Systems Review of Systems: All other systems are reviewed and are negative Constitutional: Reports as per HPI and Reports no additional constitutional complaints Eyes: Reports as per HPI and Reports no additional eye complaints Reports system reviewed and no additional complaints, except as documented Cardiovascular: Reports as per HPI and Reports no additional cardiovascular complaints Respiratory: Reports as per HPI and Reports no additional respiratory complaints Gastrointestinal: Reports as per HPI and Reports no additional gastrointestinal complaints Genitourinary: Reports no additional female genitourinary complaints Musculoskeletal: Reports no additional musculoskeletal complaints Skin/Breast: Reports system reviewed and no additional complaints, except as docu Psychiatric: Reports no additional psychiatric complaints Endocrine: Reports no additional endocrine complaints Hematologic/Lymphatic: Reports no additional hematologic/lymphatic complaints Allergic/Immunologic: Reports no additional allergic/immunologic complaints Reports system reviewed and no additional complaints, except as documented and Reports Abnormal speech present [facility] Past Medical History Medical History History of drug dependence/abuse Atypical bipolar disorder Opiate withdrawal Acute anxiety Drug-induced psychotic disorder Depression PTSD (post-traumatic stress disorder) Anxiety Depression Social History Social History Household Members: None Household Members Other:: grandmother Housing: Unknown / Unable to assess Do you presently have visiting nurse or other home services: No Unable to assess alcohol history related to: Unable to respond 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: never Patient Tobacco Use Status: Tobacco use Unknown Cigarette Packs Per Day: 1.5 Cigarettes Per Day: 30.0 Years Smoked: 23 Smoked in Last 30 Days: Yes Second Hand Smoke Exposure: Yes Use of substances other than those prescribed or required for medical reasons: Yes Substance Use Type: Crack/Cocaine and Heroin Substance Use Frequency: Chronic Longstanding Last Used Substance: Just Prior to Admission Advance Directives: No Advance Directives Information Provided: Yes service: No Current occupational status: unemployed Sexual orientation: Straight/Heterosexual Physical Exam Vital Signs: Vital Signs: Last Vital Signs Temp 97.9 F 01/03/23 23:33 Pulse 82 01/03/23 23:21 Resp 14 01/03/23 23:21 BP 106/66 01/03/23 23:21 Pulse Ox 96 01/03/23 23:21 O2 Del Method Room Air 01/03/23 23:21 BMI result Body Mass Index 18.2 Vital signs have been reviewed and appear to be correct. Blood pressure elevated. Heart rate normal. Respiratory rate normal. Temperature normal. Oxygen saturation normal. Appearance: Alert. Oriented X3. No acute distress. Head: Normal external exam. Normocephalic. Atraumatic. No Knott signs noted. No raccoon eyes noted Eyes: PERRLA. EOMI. Conjunctiva and sclera normal. Eyelids normal. ENT: TM's Normal. Pharynx normal. Uvula midline. Moist mucous membranes. No trismus noted. No drooling noted. No muffled voice noted. Neck: Normal inspection. Neck supple. FROM. No adenopathy. Thyroid Normal. No meningeal signs. No neck mass noted. CVS: Normal heart rate and rhythm. Heart sound normal. No murmurs noted. Pulses normal throughout. Respiratory: No respiratory distress. Painless inspiration. Breath sounds normal. No wheezes/rales/rhonchi noted. Chest nontender. No accessory muscle usage noted or decreased air movement noted. Abdomen: Soft and nontender. Bowel sounds normal in all 4 quadrants. No distention noted. No organomegaly noted. No visible injury noted. Back: No CVA tenderness. Full range of motion noted. Skin: Skin warm and dry. Normal skin color. Normal skin turgor. No rashes/lesions/lacerations noted. Extremities: Four sutures in the left thumb that has been discontinued. Neuro: Oriented X 3. Cranial nerve exam: II-XII are grossly intact No motor deficit. No sensory deficit. Reflexes normal. Course Course Course Narrative: 1:37 am 4 sutures from the left thumb was removed. Patient is more awake and patient decline SI or HI or VAH. Continue with physician observation and discharged when she is sober. Medications Administered Discontinued Medications Generic Name Dose Route Start Last Admin Trade Name Freq PRN Reason Stop Dose Admin Nitrofurantoin Macrocrystals 100 mg 01/03/23 19:09 01/03/23 19:36 Nitrofurantoin Monohyd/M-Cryst 100 Mg Capsule PO 01/03/23 19:10 100 mg ONCE ONE Administration Medical Decision Making Differential Diagnosis Differential Diagnoses: The differential diagnosis associated with the presentation includes ( Depression, SI, HI, acute psychosis, substance abuse, UTI.) Admission/Observation Consideration of admission/observation: Escalation of care including admission/observation considered Lab Data MDM Lab Attestation statement: I reviewed the patient's lab results. Labs: Lab Results 01/03/23 Range/Units 18:37 Urine Color Dark Yellow Urine Appearance Clear Urine pH 6.0 (5.0-9.0) Ur Specific [place] >= 1.030 H (1.005-1.025) Urine Protein 30 (1+) H (Neg-Trace) mg/dL Urine Glucose (UA) Negative (Negative) mg/dL Urine Ketones Trace (Negative) mg/dL Urine Blood Negative (Negative) Urine Nitrite Negative (Negative) Ur Leukocyte Esterase Small (1+) H (Negative) Urine RBC 0-2 (0-2) /HPF Urine WBC 21-50 H (0-5) /HPF Ur Squamous Epith Cells 0-2 (0-2) /HPF Calcium Oxalate Crystal Present Urine Bacteria None Seen (None Seen) Hyaline Casts 3-5 (0-2) /LPF Urine Test NEGATIVE (NEGATIVE) Urine Opiates Screen POSITIVE H (Not Detect) Urine Fentanyl Screen POSITIVE H (Not Detect) Ur Barbiturates Screen Not Detected (Not Detect) Ur Phencyclidine Scrn Not Detected (Not Detect) Ur Amphetamines Screen Not Detected (Not Detect) U Benzodiazepines Scrn Not Detected (Not Detect) Urine Cocaine Screen POSITIVE H (Not Detect) U Marijuana (THC) Screen Not Detected (Not Detect) Discharge Plan Discharge Clinical Impression: UTI (urinary tract infection), Substance abuse Patient Disposition: Still a Patient Instructions: Urinary Tract Infection in Women (DC) Prescriptions: New nitrofurantoin monohyd/m-cryst [Macrobid] 100 mg capsule 100 mg PO Q12H 7 Days Qty: 14 0RF Rx Instructions: must administer with a meal/food No Action clonidine HCl 0.1 mg tablet 1 tab PO TID PRN (Reason: Anxiety) trazodone 100 mg tablet 200 mg PO BEDTIME topiramate 50 mg tablet 50 mg PO DAILY atomoxetine [Strattera] 100 mg capsule 100 mg PO DAILY methadone 125 mg PO DAILY quetiapine 200 mg tablet 200 mg PO BEDTIME propranolol 10 mg tablet 10 mg PO BID PRN (Reason: agitation) quetiapine 50 mg tablet 50 mg PO DAILY PRN (Reason: depressive disorder) diphenhydramine HCl [Banophen] 50 mg capsule 50 mg PO BEDTIME PRN (Reason: insomnia) divalproex 500 mg tablet extended release 24 hr 500 mg PO BID gabapentin 300 mg capsule 300 mg PO TID Interventions: [place]-Suicide Risk Severity Scale Last Done: 01/03/23 18:40
--- NOTE | 2023-01-03 18:47 | PC.NURSE ---
Multiple attempts of IV attempted by multiple staff, unsuccessful. aware, told nursing to hold off on placing line and lab work, and to collect urine only by straight cath. Urine collected and sent.
--- NOTE | 2023-01-03 19:16 | PC.NURSE ---
Late entry: Pt was changed over upon arrival, belongings taken to decon by security. Pt noted to have multiple scabs/bruising/track nieves all over body. Pt verbalized she is utilizing heroin/crack. She reports she is using dirty needles off the ground, and feels burning and a hard sensation when she injects. Last use was prior to getting to ED. She has been subdued at times, but awakes to voice and light touch. While staff attempting IV patient yelling out that locations were scar tissue, and or that she did not have a vein there Pt given emotional support.
[2023-01-03 19:36] VITALS: TEMP 36.7
--- NOTE | 2023-01-03 20:34 | PC.NURSE ---
this rn assumed care of pt @ [address]. per dr noel no further labs or IV placement at this time. pt medicated with po macrobid. pt took medication well. pt boosted up in bed oral temp 98.1
[2023-01-03 21:06] VITALS: BP 105/80; PULSE 61; RESP 14
[2023-01-03 23:21] VITALS: BP 106/66; PULSE 82; RESP 14; O2SAT 96
[2023-01-03 23:33] VITALS: TEMP 36.6
--- NOTE | 2023-01-04 00:32 | PC.NURSE ---
pt noted to be sleeping. rise and fall of chest noted. pt awakes to name and gentle touch. per dr noel no new orders at this time
[2023-01-04 01:37] VITALS: BP 113/70; PULSE 67; RESP 14; TEMP 36.9; O2SAT 96
--- NOTE | 2023-01-04 01:39 | PC.NURSE ---
dr noel, this rn, and additional rn at bedside. for suture removal. 4 sutures removed at this time. pt refused gauze wrp dressing. pt agreeable to bandaid. band aid placed on L thumb
--- NOTE | 2023-01-04 01:50 | PC.NURSE ---
this rn and dr noel at bedside. pt declined SI,HI, AH,VH
[2023-01-04 04:02] VITALS: BP 120/89; PULSE 78; RESP 16; O2SAT 98
--- NOTE | 2023-01-04 05:36 | PC.NURSE ---
pt woke up screaming I'm going to poop on myself this rn to bedside with combatant diver qualified. pt refusing to get onto bedside commode. this rn and combatant diver qualified offered alternative option of using bedpan. pt refused stating was too cold. this rn asked pt how pt would like to use the restroom, pt states I don't have to anymore pt returned back to sleeping position, blankets repositioned. pt no longer calling out
--- NOTE | 2023-01-04 06:18 | PC.NURSE ---
pt up for discharge. pt medicated according to mar. pt not cooperative, stating I can't sit up, I'm cold this rn and security assisted pt to sitting position for medication administration. this rn attempted to discharge pt, pt assisted to standing pt stating I am cold I can't go home pt then states I'm suicidal this rn asked pt if pt has thoughts of harming self pt states yes . pt repositioned back to bed. this rn made dr lorenzo aware, and kiln charger aware. 1:[address]
--- NOTE | 2023-01-04 08:50 | PC.NURSE ---
assumed care of this pt at 0700. pt sleeping at the time of assuming care. pt now awake, breakfast given. pt requested methadone, reports that she last had methadone about five days ago but not able to tell the name of her clinic. methadone and other med given as ordered. she reports si no plan, denies hi. staff 1:1 sitter at her bedside. will continue to observe.
[2023-01-04 14:45] VITALS: BP 147/92; PULSE 65; RESP 18; TEMP 36.2; O2SAT 100
--- NOTE | 2023-01-04 18:08 | PC.NURSE ---
notified via tiger text that patient is requesting something for loose stool.
--- NOTE | 2023-01-04 21:07 | MHC.CARE ---
1900 - CARE team clinician attempted to begin assessment with pt, however she was unable to participate due to various physical ailments ranging from vomiting, diarrhea, and was generally disorganized and uncooperative. 2030 - CARE team spoke with nurse who reported that the pt was given ativan and has been sleeping soundly. This program writer elected not to awaken pt, given how her day had progressed. Pt will be seen in the morning.
[2023-01-05 01:12] VITALS: BP 131/90; PULSE 75; RESP 19; TEMP 37.9; O2SAT 100
[2023-01-05 01:16] VITALS: TEMP 37.1
[2023-01-05 05:40] VITALS: BP 110/85; PULSE 109; RESP 16; O2SAT 95
--- NOTE | 2023-01-05 05:48 | PC.NURSE ---
Patient slept intermittently, woke up for multiple needs, two episode vomiting, behavior non concerning but at time loud and disruptive, redirectable, patient was cleared for discharge but endorsed SI at the time of discharge, patient will be reevaluated by care team in the morning, VSS, currently not scoring on both COWS and CIWA but exhibits discomfort related to polysubstance use Ativan 2 mg po and Clonidine 0.1 mg administered with + effect, VSS, will continue to monitor.
--- NOTE | 2023-01-05 07:10 | PC.NURSE ---
patient appears to remain asleep at present respirations are even and unlabored patient appears in no distress
--- NOTE | 2023-01-05 09:46 | PC.NURSE ---
attempted times two to verify patient status at [facility].
--- NOTE | 2023-01-05 11:08 | MHC.RECOVRN ---
Addendum entered by Cynthia Maradiaga RN 01/05/23 11:11: Provider made aware of MTD dose request. Original Note: This junior copywriter met with patient after cleared for SI. Pt presented to ED via EMS, AMS. Pt reports nausea/vomitting/loose stool, body aches, irritable. Pt requesting MTD dose prior to d/c and MTD referral to [facility].
== END 2023-01-05 11:56 | disposition home or self-care (01) ==
PROVIDERS: Emergency Provider Emergency Medicine; PCP Internal Medicine
DX: F19.10 Other psychoactive substance abuse, uncomplicated (principal); N39.0 Urinary tract infection, site not specified; R45.851 Suicidal ideations; Z11.52 Encounter for screening for COVID-19; Z48.02 Encounter for removal of sutures; F11.20 Opioid dependence, uncomplicated; F31.9 Bipolar disorder, unspecified; F14.10 Cocaine abuse, uncomplicated; F41.9 Anxiety disorder, unspecified; F43.10 Post-traumatic stress disorder, unspecified; F17.210 Nicotine dependence, cigarettes, uncomplicated; Z79.899 Other long term (current) drug therapy
CPT/HCPCS: 80053; 80307; 81001; 81025; 85025; 87086; 87635; 99285; S9485

== ENCOUNTER 2023-01-25 11:21 | Emergency (ER) | payer MEDICAID, SELFPAY | END 2023-01-25 12:23 | disposition left against medical advice (07) | LOC: HO.ED 12:13 | PROVIDERS: Emergency Provider Emergency Medicine; PCP Internal Medicine | DX: M79.10 Myalgia, unspecified site (principal) ==

== ENCOUNTER 2023-05-02 17:40 | Emergency (ER) | payer MEDICAID, SELFPAY ==
--- NOTE | ~2023-05-02 | XR_ITS ---
EXAMINATION: XR FOREARM, RIGHT CLINICAL INFORMATION: Possible foreign body retention COMPARISON: None available. TECHNIQUE: AP and lateral views of the right forearm were obtained. FINDINGS: Focal soft tissue swelling is seen along the lateral aspect of the distal forearm. I do not appreciate any radiopaque foreign body or soft tissue gas in this location. Underlying bony structures are unremarkable with no fracture or dislocation. No bony destructive lesions or periosteal reaction. XR/XR forearm RT 2V IMPRESSION: Focal soft tissue swelling along the lateral aspect of the distal forearm. I do not appreciate any radiopaque foreign body or soft tissue gas.
[2023-05-02 17:55] VITALS: RESP 18; BMI 19.7
[2023-05-02 18:01] VITALS: BP 118/86; PULSE 107; RESP 18; TEMP 36.2; O2SAT 95
--- NOTE | 2023-05-02 18:06 | ED_ITS ---
HPI - General Adult General Chief complaint: Psychiatric Symptoms Stated complaint: Sect 12 coming from home. Time Seen by Provider: 05/02/23 18:05 Source: patient and EMS Mode of arrival: EMS Limitations: no limitations History of Present Illness HPI narrative: Patient is a 37 year old assigned female at with a history of bipolar disorder presenting to the emergency department today with paranoid delusions. Per EMS and police she is saying things that seem paranoid and has been using crack. Patient denies any thoughts of hurting herself or others, dizziness, lightheadedness, abdominal pain, nausea, vomiting, fever, chills, blurry vision, double vision, loss of vision, chest pain, difficulty breathing, shortness of breath, back pain, night sweats, pain with urination, increased urinary frequency, increased urinary urgency, blood in her urine or stool, syncope or a near syncopal episode, recent trauma or falls, bowel incontinence, bladder incontinence, bowel retention, bladder retention, or any other complaints at this time. Relieving factors: none Exacerbating factors: none Associated symptoms: denies other symptoms Treatments prior to arrival: none Related Data Home Medications Medication Instructions Recorded Confirmed clonidine HCl 0.1 mg tablet 0.1 mg PO TID PRN Anxiety 01/04/23 01/04/23 trazodone 100 mg tablet 200 mg PO QPM 01/04/23 01/04/23 Previous Rx's Medication Instructions Recorded nitrofurantoin 100 mg PO Q12H 5 days #10 caps 01/05/23 monohydrate/macrocrystals 100 mg capsule (Macrobid) Allergies Allergy/AdvReac Type Severity Reaction Status Date / Time No Known Allergies Allergy Verified 01/03/23 17:33 [No Known Allergies*] Review of Systems 2 Constitutional: Constitutional: Reports no additional constitutional complaints, Denies chills, Denies fever(s) and Denies night sweats Eyes: Eyes: Reports no additional eye complaints, Denies blurry vision, Denies change in vision, Denies diplopia, Denies eye discharge, Denies loss of vision and Denies eye pain ENT: Denies dizziness Cardiovascular: Cardiovascular: Reports no additional cardiovascular complaints, Denies chest pain, Denies lightheadedness, Denies Loss of Consciousness and Denies dyspnea Respiratory: Respiratory: Reports no additional respiratory complaints and Denies dyspnea Gastrointestinal: Gastrointestinal: Reports no additional gastrointestinal complaints, Denies abdominal pain, Denies melena, Denies hematochezia, Denies change in bowel habits and Denies change in stool character Genitourinary: Genitourinary: Denies hematuria, Denies urinary frequency, Denies dysuria, Denies urinary incontinence, Denies urinary hesitancy and Denies urinary urgency Musculoskeletal: Musculoskeletal: Reports no additional musculoskeletal complaints, Denies numbness and Denies tingling Neurologic: Denies dizziness, Denies loss of vision, Denies numbness and Denies tingling Psychiatric: Psychiatric: Reports paranoia Endocrine: Endocrine: Reports no additional endocrine complaints Hematologic/Lymphatic: Hematologic/Lymphatic: Reports no additional hematologic/lymphatic complaints Allergic/Immunologic: Allergic/Immunologic: Reports no additional allergic/immunologic complaints PMFSH Past Medical History Attestation statement: The following information was validated with the patient. 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 Patient Tobacco Use Status: Tobacco use Unknown Cigarette Packs Per Day: 1.5 Cigarettes Per Day: 30.0 Years Smoked: 23 Second Hand Smoke Exposure: Yes Substance Use Type: Crack/Cocaine, Heroin and Opiates Advance Directives: No Advance Directives Information Provided: No service: No Current occupational status: unemployed Sexual orientation: Straight/Heterosexual Physical Exam ED Vital Signs: Vital Signs - 24 hr 05/02/23 17:55 05/02/23 18:01 Temperature 97.2 F Pulse Rate 107 H Respiratory Rate 18 18 Blood Pressure 118/86 Pulse Oximetry 95 Oxygen Delivery Method Room Air BMI result Body Mass Index 19.7 Const General: cooperative, no acute distress, alert and awake Nutritional Appearance: well nourished Orientation/consciousness: patient oriented x3 Limitations: no limitations HENMT Head: Yes normal to inspection and Yes atraumatic Ears: hearing grossly normal bilaterally and external ears normal General nose exam: Normal external nose present, no nasal discharge noted and no epistaxis Face and sinus: Yes normal facial exam, No abrasion and No laceration Mouth: Normal oral and palatal mucosa present, no drooling and no muffled voice Eyes General: appearance normal, both eyes and all related structures Periorbital: periorbital findings normal Eyelids: Yes eyelids normal Conjunctivae: conjunctivae normal Pupils: Equal, round and reactive pupils present EOM: EOMs intact bilaterally Neck Neck: Yes normal visual inspection, Yes full ROM and Yes no lymphadenopathy Chest Chest palpation & inspection: normal inspection of the chest Resp Effort & Inspection: normal respiratory effort and able to speak in complete sentences GI Inspection: Yes normal to inspection Neuro General: patient oriented x3 and moves all extremities Cranial nerves: Yes Equal, round and reactive pupils present Cognition (Neuro): normal cognition Motor exam (neuro): 5/5 motor strength present throughout Sensory Exam: Normal double simultaneous stimulation for sensation Coordination: [id number] test normal Extrem General: Yes normal to inspection, Yes full ROM and Yes capillary refill normal Psych Thought content: Paranoid delusions present Medical Decision Making Medical Decision Making MDM Narrative: Patient is a 37 year old assigned female at with a history of bipolar disorder presenting to the emergency department today with paranoia. Patient's physical exam was as noted in the physical exam portion of this note. Patient's blood work was unremarkable. Patient's urine showed no acute process. Patient's COVID-19 was positive. I explained my physical exam findings as well as all test results to the patient. I answered all questions asked by the patient. Patient is awaiting CARE team discharge. Differential Diagnosis Differential Diagnoses: The differential diagnosis associated with the presentation includes Paranoia Crack use COVID-19 Admission/Observation Consideration of admission/observation: Escalation of care including admission/observation considered Patient's disposition will be determined after CARE team evaluation. Lab Data [facility] Lab Attestation statement: I reviewed the patient's lab results. My interpretation of these results are in the MDM Rationale portion of this note. 05/02/23 18:45 05/02/23 18:45 Labs: Lab Results 05/02/23 05/02/23 05/02/23 Range/Units 18:34 18:45 19:51 WBC 5.1 (4.8-10.8) X10*3/uL RBC 4.02 L (4.20-5.50) X10*6/uL Hgb 10.9 L (12.0-16.0) g/dl Hct 34.8 L (37.0-47.0) % MCV 86.6 (80.0-98.0) fL MCH 27.1 (27.0-33.0) pg MCHC 31.3 (31.0-35.0) g/dl RDW 15.7 (11.0-16.0) % Plt Count 293 (160-400) X10*3/uL MPV 8.7 L (9.4-12.3) fL Immature Gran % (Auto) 0.2 (0.0-0.4) % Neut % (Auto) 65.2 (45-73) % Lymph % (Auto) 29.3 (20-40) % [place] % (Auto) 4.7 (2-11) % Eos % (Auto) 0.2 (0-4) % Baso % (Auto) 0.4 (0-2) % Lymph # (Auto) 1.5 (1.2-4.9) X10*3/uL [place] # (Auto) 0.2 (0.1-1.2) X10*3/uL Eos # (Auto) 0.0 (0.0-0.4) X10*3/uL Baso # (Auto) 0.0 (0.0-0.2) X10*3/uL Abs Immat Gran (auto) 0.01 (0.00-0.03) X10*3/uL Absolute Neuts (auto) 3.3 (2.0-8.3) x10*3/uL Absolute Nucleated RBC 0.000 (0.0-0.012) X10*3/uL Nucleated RBC % (auto) 0.0 (0.0-0.2) /100WBC Sodium 139 (135-145) mmol/L Potassium 3.8 (3.3-5.1) mmol/L Chloride 106 (96-108) mmol/L Carbon Dioxide 21 L (22-29) mmol/L Anion Gap 16 (12-20) BUN 12 (9-16) mg/dL Creatinine 1.03 (0.5-1.4) mg/dL Estim Creat Clear Calc 62.1 Estimated GFR > 60 Random Glucose 132 H (60-115) mg/dL Calcium 10.3 H D (8.4-10.2) mg/dL Total Bilirubin 0.3 (0.0-1.0) mg/dL AST 26 (5-31) U/L ALT 16 (0-31) U/L Alkaline Phosphatase 73 (39-117) U/L Total Protein 8.6 H (6.5-8.0) g/dL Albumin 4.7 (3.5-5.0) g/dL Urine Color Yellow Urine Appearance Cloudy Urine pH >= 9.0 (5.0-9.0) Ur Specific [place] 1.020 (1.005-1.025) Urine Protein Trace (Neg-Trace) mg/dL Urine Glucose (UA) Negative (Negative) mg/dL Urine Ketones Negative (Negative) mg/dL Urine Blood Negative (Negative) Urine Nitrite Negative (Negative) Ur Leukocyte Esterase Negative (Negative) Urine RBC 0-2 (0-2) /HPF Urine WBC 0-5 (0-5) /HPF Ur Squamous Epith Cells 0-2 (0-2) /HPF Urine Bacteria None Seen (None Seen) Hyaline Casts 0-2 (0-2) /LPF Urine Test NEGATIVE (NEGATIVE) Salicylates < 5.0 L (15-30) mg/dL Urine Opiates Screen POSITIVE H (Not Detect) Urine Fentanyl Screen POSITIVE H (Not Detect) Acetaminophen < 3 (<30) mcg/mL Ur Barbiturates Screen Not Detected (Not Detect) Ur Phencyclidine Scrn Not Detected (Not Detect) Ur Amphetamines Screen Not Detected (Not Detect) U Benzodiazepines Scrn Not Detected (Not Detect) Urine Cocaine Screen POSITIVE H (Not Detect) U Marijuana (THC) Screen POSITIVE H (Not Detect) Ethyl Alcohol < 10 mg/dL COVID-19 (AUTUMN) Positive A (Negative) COVID-19 Clin Com See Note Independent Historian Clinical information obtained from an independent historian. History obtained from or confirmed by: EMS (EMS provided additional history and confirmed the history provided by the patient.) Critical Care Time Critical Care Time Critical Care Time: Yes Total Critical Care Time: 35 Attestation: I spent 35 minutes of Critical Care Time with this patient. This does not include time spent on separately reported billable procedures. Discharge Plan Discharge Clinical Impression: Crack cocaine use, Acute paranoia, COVID-19 Patient Disposition: Still a Patient Prescriptions: No Action clonidine HCl 0.1 mg tablet 0.1 mg PO TID PRN (Reason: Anxiety) trazodone 100 mg tablet 200 mg PO QPM nitrofurantoin monohyd/m-cryst [Macrobid] 100 mg capsule 100 mg PO Q12H 5 Days Qty: 10 0RF Rx Instructions: must administer with a meal/food Interventions: [place]-Suicide Risk Severity Scale Last Done: 05/02/23 18:01
--- NOTE | 2023-05-02 18:31 | PC.NURSE ---
Sangeeta was BIBA after calling 911 to report feeling paranoid after smoking too much crack . Police escorted her to the hospital and stated they have had several calls to her apt for the same issue and they were concerned she may hurt herself. Sangeeta advocating for discharge since arrival. Behaviorally she is in control. Unable to provide urine currently. Other labs are pending. Denying SI/HI/AVH.
[2023-05-02 18:50] LABS: MANUAL DIFF FLAG NO
[2023-05-02 18:53] LABS: Basophils Percent Auto 0.4 % (0-2); Eosinophils Percent Auto 0.2 % (0-4); Hematocrit 34.8 % (37.0-47.0); Hemoglobin 10.9 g/dl (12.0-16.0); Imm Gran Abs Auto 0.01 X10*3/uL (0.00-0.03); Imm Gran Pct Auto 0.2 % (0.0-0.4); Lymphocytes Absolute Auto 1.5 X10*3/uL (1.2-4.9); Lymphocytes Percent Auto 29.3 % (20-40); Mean Corpuscular HGB Conc 31.3 g/dl (31.0-35.0); Mean Corpuscular Hemoglobin 27.1 pg (27.0-33.0); Mean Corpuscular Volume 86.6 fL (80.0-98.0); Mean Platelet Volume 8.7 fL (9.4-12.3); Monocytes Absolute Auto 0.2 X10*3/uL (0.1-1.2); Monocytes Percent Auto 4.7 % (2-11); Neutrophils Absolute Auto 3.3 x10*3/uL (2.0-8.3); Neutrophils Percent Auto 65.2 % (45-73); Platelet Count 293 X10*3/uL (160-400); Red Blood Count 4.02 X10*6/uL (4.20-5.50); Red Cell Distribution Width 15.7 % (11.0-16.0); White Blood Count 5.1 X10*3/uL (4.8-10.8)
[2023-05-02 19:14] LABS: Alanine Aminotransferase 16 U/L (0-31); Albumin Level 4.7 g/dL (3.5-5.0); Alkaline Phosphatase 73 U/L (39-117); Anion Gap 16 (12-20); Aspartate Amino Transferase 26 U/L (5-31); Bilirubin Total 0.3 mg/dL (0.0-1.0); Blood Urea Nitrogen 12 mg/dL (9-16); Calcium 10.3 mg/dL (8.4-10.2); Carbon Dioxide 21 mmol/L (22-29); Chloride 106 mmol/L (96-108); Creatinine Clr Calc Pharmacy 62.1; Estimated Glomerular Filt Rate > 60; Ethanol < 10 mg/dL; Glucose Random 132 mg/dL (60-115); Potassium 3.8 mmol/L (3.3-5.1); Sodium 139 mmol/L (135-145); Total Protein 8.6 g/dL (6.5-8.0)
[2023-05-02 19:15] LABS: Acetaminophen LAB < 3 mcg/mL (<30); Salicylate < 5.0 mg/dL (15-30)
[2023-05-02 19:15] LABS: COVID-19 Test Positive (Negative); IDNOW Serial# 08D9AD1C
--- NOTE | 2023-05-02 19:20 | PC.NURSE ---
patient appears to remain at rest at present
[2023-05-02 20:03] LABS: Appearance Urine Cloudy; Color Urine Yellow; Glucose Urine UA Negative (Negative); Leukocyte Esterase Urine Negative (Negative); Nitrite Urine Negative (Negative); PH >= 9.0 (5.0-9.0); Urine Blood Negative (Negative); Urine Ketones Negative (Negative); Urine Protein Trace mg/dL (Neg-Trace)
[2023-05-02 20:04] LABS: UPreg QC Valid YES; Urine Pregnancy NEGATIVE (NEGATIVE)
[2023-05-02 20:13] LABS: Amphetamine Screen Urine Not Detected (Not Detect); Barbiturates, Urine Not Detected (Not Detect); Benzodiazepines Screen Urine Not Detected (Not Detect); Cannabinoid Screen Urine POSITIVE (Not Detect); Cocaine Screen Urine POSITIVE (Not Detect); Fentanyl, urine POSITIVE (Not Detect); Opiate Screen Urine POSITIVE (Not Detect); Phencyclidine Screen Urine Not Detected (Not Detect)
[2023-05-02 20:15] LABS: Bacteria Urine None Seen (None Seen); Hyaline Casts Urine 0-2 /LPF (0-2); RBC Urine 0-2 /HPF (0-2); Squamous Epithelial Cell Urine 0-2 /HPF (0-2); WBC Urine 0-5 /HPF (0-5)
[2023-05-02] MEDS: LORazepam 1 MG TABLET 2 MG PO (21:15)
--- NOTE | 2023-05-03 00:16 | PC.NURSE ---
patient seemingly intentionally disruptive because shes impatient to be seen. stands on furniture spilled silverio daniele.
== END 2023-05-03 00:38 | disposition home or self-care (01) ==
PROVIDERS: Emergency Provider Emergency Medicine Emergency Medical Services
DX: F14.10 Cocaine abuse, uncomplicated (principal); F22 Delusional disorders; U07.1 COVID-19; F41.9 Anxiety disorder, unspecified; F31.9 Bipolar disorder, unspecified; F43.10 Post-traumatic stress disorder, unspecified; F11.20 Opioid dependence, uncomplicated; M79.89 Other specified soft tissue disorders; Z79.899 Other long term (current) drug therapy
CPT/HCPCS: 73090; 80053; 80143; 80179; 80307; 81001; 81025; 85025; 87635; 99284; 99285

== ENCOUNTER 2023-06-13 18:33 | Emergency (ER) | payer MEDICAID, SELFPAY ==
[2023-06-13 18:42] VITALS: BP 141/95; BP 168/102; PULSE 129; PULSE 135; RESP 18; TEMP 37.6; O2SAT 95; O2SAT 99; BMI 23.0
--- NOTE | 2023-06-13 19:39 | PC.NURSE ---
Pt aox4 resting at the bedside. Calm and cooperative. Making needs known. No apparent distress noted. Denies any pain. Pt reports doing cocaine earlier today and had an episode. I don't really want to talk about it right now. Reports heroin use yesterday. Pt reports calling EMS herself for safety and feels much better at this time. Denies SI/HI. Reports wanting to go home. On Methadone 125mg from [facility]. Pt reports last dose was today. Med req completed. Pending labs, urine sample, and physician eval.
[2023-06-13 20:06] LABS: Ethanol < 10 mg/dL
--- NOTE | 2023-06-13 21:09 | ED_ITS ---
HPI - Psych General Chief Complaint: ETOH/Substance Use Stated Complaint: ETOH,HALLUCINATIONS Time Seen by Provider: 06/13/23 21:00 Source: patient and EMS Mode of arrival: EMS Limitations: no limitations History of Present Illness HPI Narrative: The emergency room reporting that earlier today she had severe anxiety. Patient states that every so often she feels extremely anxious and acts abnormal. Patient states that she called the ambulance and they brought her to the hospital. Patient states that she ran out of her medications a few days ago, and that is the reason she was acting strange and very anxious. Patient states that she has not suicidal or homicidal. Patient states that since she arrived to the emergency room, she started feeling much better. Per EMS, the crew reported the patient was trying to climb up a lamp. Patient denies SI or HI Related Data Home Medications Medication Instructions Recorded Confirmed atomoxetine 100 mg capsule 100 mg PO DAILY 06/13/23 06/13/23 divalproex 250 mg tablet,delayed 250 mg PO BID 06/13/23 06/13/23 release gabapentin 800 mg tablet 800 mg PO TID 06/13/23 06/13/23 hydroxyzine pamoate 50 mg capsule 50 mg PO TID PRN Anxiety 06/13/23 06/13/23 loratadine 10 mg tablet 10 mg PO DAILY 06/13/23 06/13/23 nicotine (polacrilex) 4 mg gum 4 mg PO Q2H PRN Withdrawal Symptoms 06/13/23 06/13/23 quetiapine 300 mg tablet 300 mg PO BEDTIME 06/13/23 06/13/23 quetiapine 50 mg tablet,extended 50 mg PO QAM 06/13/23 06/13/23 release 24 hr Allergies Allergy/AdvReac Type Severity Reaction Status Date / Time No Known Allergies Allergy Verified 01/03/23 17:33 [No Known Allergies*] Review of Systems Review of Systems: Constitutional : No Weight loss, No Fever, No Chills, No Night Sweats, No Fatigue, No Malaise ENT/Mouth : No Hearing loss, No Ear Pain, No Nasal Congestion, No Sinus Pain, No Hoarseness, No sore throat, No Rhinorrhea, No Swallowing Difficulty Eyes: No Eye Pain, No Swelling, No Redness, No Foreign Body, No Discharge, No Vision Changes Cardiovascular : No Chest Pain, No SOB, No Dyspnea on Exertion, No Orthopnea, No Edema, No Palpitations Respiratory : No Cough, No Sputum, No Wheezing, No Smoke Exposure, No Dyspnea Gastrointestinal : No Nausea, No Vomiting, No Diarrhea, No Constipation, No abdominal Pain, No Hematochezia, No Melena Genitourinary : no irregular bleeding, No Dysuria, No Urinary Frequency, No Hematuria, No Urinary Incontinence, No Urgency, No Flank Pain, No Urinary Flow Changes, No Hesitancy Musculoskeletal : No joint pain, No Myalgias, No Joint Swelling Skin : No Skin Lesions, No rash Neuro : No Weakness, No Numbness, No Paresthesias, No Loss of Consciousness, No Dizziness, No Headache Psych : Complaining of anxiety, No Depression, No SI/HI/AH/VH, No Social Issues, Heme/Lymph: No Bruising, No Bleeding,No Lymphadenopathy Endocrine : No Polyuria, No Polydipsia, No Temperature Intolerance [facility] Past Medical History Medical History History of drug dependence/abuse Atypical bipolar disorder Opiate withdrawal Acute anxiety Drug-induced psychotic disorder Depression PTSD (post-traumatic stress disorder) Anxiety Depression Social History Social History Household Members: None Household Members Other:: grandmother Housing: Unknown / Unable to assess Do you presently have visiting nurse or other home services: No Unable to assess alcohol history related to: Unable to respond 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: never 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 Patient Tobacco Use Status: Tobacco use Unknown Cigarette Packs Per Day: 1.5 Cigarettes Per Day: 30.0 Years Smoked: 23 Smoked in Last 30 Days: Yes Second Hand Smoke Exposure: Yes Use of substances other than those prescribed or required for medical reasons: Yes Substance Use Type: Crack/Cocaine and Heroin Substance Use Frequency: Chronic Longstanding Last Used Substance: Just Prior to Admission Any prior treatment program specific to substance use: Yes Advance Directives: No Advance Directives Information Provided: No Patient : No service: No Current occupational status: unemployed Sexual orientation: Straight/Heterosexual Physical Exam Vital Signs: Vital Signs: Last Vital Signs Temp 99.6 F 06/13/23 18:42 Pulse 129 H 06/13/23 18:42 Resp 18 06/13/23 18:42 BP 141/95 H 06/13/23 18:42 Pulse Ox 95 06/13/23 18:42 O2 Del Method Room Air 06/13/23 18:42 BMI result Body Mass Index 23.0 Const: Other: Appearance: Alert. Oriented X3. No acute distress. Eyes: Pupils equal, round and reactive to light. ENT: Pharynx normal. Neck: Normal inspection. Neck supple. No lymph nodes noted. No crepitus CVS: Normal heart rate and rhythm. Pulses normal. Normal S1 and S2 Respiratory: No respiratory distress. Breath sounds normal. No Wheezing. No rales Abdomen: Soft and nontender. No rigidity. No distention. Skin: Skin warm and dry. Normal skin color. Normal skin turgor. Extremities: No lower extremity edema. No Lacerations. No Rash Neuro: Oriented X 3. No motor deficit. No sensory deficit. Moving all extremities. No slurred speech. CN 2 through 12 grossly intact Psych: calm, cooperative, normal affect Medical Decision Making Medical Decision Making MDM Narrative: -patient is alert and oriented x3, calm, cooperative, clinically sober, completely normal affect -patient states that she has her prescriptions spinning in her pharmacy and will pick them up in the morning. Patient states that she will be well throughout the night. -patient requesting to be discharged home. Patient is not SI, no HI, section 12 not indicated Differential Diagnosis Differential Diagnoses: The differential diagnosis associated with the presentation includes (Anxiety, polysubstance abuse) Lab Data Labs: Lab Results 06/13/23 Range/Units 19:43 Ethyl Alcohol < 10 mg/dL Discharge Plan Discharge Clinical Impression: Anxiety Patient Disposition: Home, Self-Care Instructions: Anxiety (ED) Additional Instructions: Please follow-up with your primary care physician tomorrow. If you have any worsening or new symptoms, please return to the emergency room or call 911 Prescriptions: No Action quetiapine 300 mg tablet 300 mg PO BEDTIME divalproex 250 mg tablet,delayed release (DR/EC) 250 mg PO BID hydroxyzine pamoate 50 mg capsule 50 mg PO TID PRN (Reason: Anxiety) gabapentin 800 mg tablet 800 mg PO TID nicotine (polacrilex) 4 mg gum 4 mg PO Q2H PRN (Reason: Withdrawal Symptoms) loratadine 10 mg tablet 10 mg PO DAILY atomoxetine 100 mg capsule 100 mg PO DAILY quetiapine 50 mg tablet extended release 24 hr 50 mg PO QAM
[2023-06-13 21:59] LABS: Anion Gap 12 (12-20)
[2023-06-13 22:02] LABS: Blood Urea Nitrogen 13 mg/dL (9-16); Calcium 9.2 mg/dL (8.4-10.2); Carbon Dioxide 23 mmol/L (22-29); Chloride 101 mmol/L (96-108); Creatinine Clr Calc Pharmacy 67.7; Estimated Glomerular Filt Rate > 60; Glucose Random 113 mg/dL (60-115); Potassium 3.8 mmol/L (3.3-5.1); Sodium 132 mmol/L (135-145)
[2023-06-13 22:03] VITALS: BP 95/63; PULSE 67; RESP 20; TEMP 36.7; O2SAT 99
== END 2023-06-13 22:04 | disposition home or self-care (01) ==
PROVIDERS: Emergency Provider Emergency Medicine
DX: F41.9 Anxiety disorder, unspecified (principal); Z91.138 Patient's unintentional underdosing of medication regimen for other reason
CPT/HCPCS: 36415; 80048; 80307; 99283; 99284

== ENCOUNTER 2023-07-04 00:04 | Emergency (ER) | payer MEDICAID, SELFPAY ==
[2023-07-04 00:14] VITALS: PULSE 112; RESP 16; O2SAT 96; BMI 20.6
--- NOTE | 2023-07-04 00:19 | ED_ITS ---
HPI - General Adult General Chief complaint: General Medical Stated complaint: drug use Time Seen by Provider: 07/04/23 00:09 Source: patient, RN notes reviewed and old records reviewed Mode of arrival: EMS Limitations: no limitations History of Present Illness HPI narrative: 37-year-old female presents for evaluation of ?I got into a fight with my uncle and the police showed up and brought me here. ? Patient states that she moved out of her house because she kept getting into altercations with her uncle The patient went back today to take her grandmother out to dinner. Upon returning she got into a verbal altercation with her uncle The uncle called the roof designer and brought the patient to emergency department The patient states ?because I am an addict I always look like the bad lucila. ? She denies any SI or HI She reports she used cocaine around 10:00 a.m. but has not used any substances since She states that she is just looking to go home She has no other complaints or concerns at this time Related Data Home Medications ?Medication ?Instructions ?Recorded ?Confirmed atomoxetine 100 mg capsule 100 mg PO DAILY 06/13/23 06/13/23 divalproex 250 mg tablet,delayed 250 mg PO BID 06/13/23 06/13/23 release gabapentin 800 mg tablet 800 mg PO TID 06/13/23 06/13/23 hydroxyzine pamoate 50 mg capsule 50 mg PO TID PRN Anxiety 06/13/23 06/13/23 loratadine 10 mg tablet 10 mg PO DAILY 06/13/23 06/13/23 nicotine (polacrilex) 4 mg gum 4 mg PO Q2H PRN Withdrawal Symptoms 06/13/23 06/13/23 quetiapine 300 mg tablet 300 mg PO BEDTIME 06/13/23 06/13/23 quetiapine 50 mg tablet,extended 50 mg PO QAM 06/13/23 06/13/23 release 24 hr Allergies Allergy/AdvReac Type Severity Reaction Status Date / Time No Known Allergies Allergy Verified 07/04/23 00:21 [No Known Allergies*] Review of Systems Constitutional: Constitutional: Denies body ache(s), Denies chills, Denies fever(s) and Denies headache(s) Eyes: Eyes: Denies blurry vision ENT: Denies headache(s) Cardiovascular: Cardiovascular: Denies chest pain and Denies dyspnea Respiratory: Respiratory: Denies cough and Denies dyspnea Gastrointestinal: Gastrointestinal: Denies abdominal pain, Denies nausea and Denies vomiting Genitourinary: Genitourinary: Denies dysuria Musculoskeletal: Musculoskeletal: Denies back pain Integumentary/Breasts: Skin/Breast: Denies rash Neurologic: Denies headache(s) Psychiatric: Psychiatric: Denies anxiety, Denies depression, Denies homicidal ideation and Denies suicidal ideation [facility] Past Medical History Medical History History of drug dependence/abuse Atypical bipolar disorder Opiate withdrawal Acute anxiety Drug-induced psychotic disorder Depression PTSD (post-traumatic stress disorder) Anxiety Depression Social History Social History Household Members: None Household Members Other:: grandmother Housing: Unknown / Unable to assess Do you presently have visiting nurse or other home services: No Unable to assess alcohol history related to: Unable to respond 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: never 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 Patient Tobacco Use Status: Tobacco use Unknown Cigarette Packs Per Day: 1.5 Cigarettes Per Day: 30.0 Years Smoked: 23 Second Hand Smoke Exposure: Yes Substance Use Type: Crack/Cocaine and Heroin Advance Directives: No Advance Directives Information Provided: No service: No Current occupational status: unemployed Sexual orientation: Straight/Heterosexual Physical Exam ED Vital Signs: Vital Signs - 24 hr 07/04/23 00:14 Pulse Rate 112 H Respiratory Rate 16 Pulse Oximetry 96 Oxygen Delivery Method Room Air BMI result Body Mass Index 20.6 Const General: healthy appearing, comfortable, no acute distress, alert and awake Nutritional Appearance: well nourished Orientation/consciousness: patient oriented x3 HENMT Head: Yes normocephalic and Yes atraumatic Eyes Eyelids: Yes eyelids normal Conjunctivae: conjunctivae normal Sclerae: sclerae normal Corneas: corneas normal Pupils: Equal, round and reactive pupils present EOM: EOMs intact bilaterally Neck Neck: Yes full ROM Resp Effort & Inspection: normal respiratory effort, able to speak in complete sentences and not labored Cardio Rate: regular rate Rhythm: regular rhythm GI Inspection: No distended Palpation (GI): Soft to palpation, not firm, nontender, no guarding and not rigid Skin General skin exam: elasticity normal Neuro General: patient oriented x3 Cranial nerves: Yes CN's II-XII intact bilaterally, Yes Equal, round and reactive pupils present and Yes Bilaterally intact EOM present Cognition (Neuro): normal cognition Extrem Other: Moving all extremities well without any obvious deformities Medical Decision Making Medical Decision Making MDM Narrative: 37-year-old female presents for evaluation after a verbal altercation. She has not on a section, she has no medical, psychiatric or substance related complaints. She is requesting discharge. She is awake, alert and oriented wi thout any medical complaints and stable vital signs, I do not see any reason to keep her here against her will. The patient will be discharged. She reports that she has a safe place to go Differential Diagnosis Differential Diagnoses: The differential diagnosis associated with the presentation includes Agitation Substance abuse Depression Anxiety Discharge Plan Discharge Clinical Impression: Agitation Patient Disposition: Home, Self-Care Instructions: Cocaine Abuse (ED) Additional Instructions: Return to the ER immediately if you have any thoughts of harming herself or anybody else Prescriptions: No Action quetiapine 300 mg tablet 300 mg PO BEDTIME divalproex 250 mg tablet,delayed release (DR/EC) 250 mg PO BID hydroxyzine pamoate 50 mg capsule 50 mg PO TID PRN (Reason: Anxiety) gabapentin 800 mg tablet 800 mg PO TID nicotine (polacrilex) 4 mg gum 4 mg PO Q2H PRN (Reason: Withdrawal Symptoms) loratadine 10 mg tablet 10 mg PO DAILY atomoxetine 100 mg capsule 100 mg PO DAILY quetiapine 50 mg tablet extended release 24 hr 50 mg PO QAM Print Language: Bulgarian
[2023-07-04 00:35] VITALS: BP 129/90; PULSE 112; RESP 16; TEMP 37; O2SAT 96
== END 2023-07-04 00:38 | disposition home or self-care (01) ==
PROVIDERS: Emergency Provider Emergency Medicine
DX: R45.1 Restlessness and agitation (principal)
CPT/HCPCS: 99282

== ENCOUNTER 2023-08-05 16:03 | Emergency (ER) | payer MEDICAID, SELFPAY ==
[2023-08-05] VITALS (7 sets, daily range): BP systolic 99–126; BP diastolic 62–99; PULSE 72–146; RESP 14–22; TEMP 36.4–36.7; O2SAT 94–100; BMI 19.7
--- NOTE | ~2023-08-05 | XR_ITS ---
EXAMINATION: XR CHEST CLINICAL INFORMATION: Altered mental status. COMPARISON: Chest radiograph 10/05/2020. TECHNIQUE: Frontal view of the chest was obtained. FINDINGS: No significant abnormality is noted involving the heart, lungs, mediastinum, bony thorax or soft tissues. XR/XR chest 1V IMPRESSION: Unremarkable examination.
[2023-08-05] MEDS: LORazepam 2 MG/ML VIAL IM (16:10)
[2023-08-05] MEDS: diphenhydrAMINE HCL 50 MG/ML VIAL IM (16:10)
[2023-08-05] MEDS: droPERidol 5 MG/2 ML VIAL 2.5 MG IM (16:10)
--- NOTE | 2023-08-05 16:10 | ED.PSYCH ---
HPI - Psych General Chief Complaint: ETOH/Substance Use Stated Complaint: SECTION 12 HALLUCINATIONS Time Seen by Provider: 08/05/23 16:05 Source: patient, family and EMS Mode of arrival: EMS Limitations: altered mental status History of Present Illness HPI Narrative: 37-year-old female past medical history significant of bipolar disorder cocaine use bacterial infections opioid use presents to the emergency department in police custody via EMS for altered mental status apparently was having erratic behavior at the house. Did have to put the patient coughs she is screaming and stating that she is getting electrocuted is not directable stating that things are shaggy here and demanding that people get away complaint: altered mental status, substance abuse and hallucinations Related Data Home Medications ?Medication ?Instructions ?Recorded ?Confirmed atomoxetine 100 mg capsule 100 mg PO DAILY 06/13/23 06/13/23 divalproex 250 mg tablet,delayed 250 mg PO BID 06/13/23 06/13/23 release gabapentin 800 mg tablet 800 mg PO TID 06/13/23 06/13/23 hydroxyzine pamoate 50 mg capsule 50 mg PO TID PRN Anxiety 06/13/23 06/13/23 loratadine 10 mg tablet 10 mg PO DAILY 06/13/23 06/13/23 nicotine (polacrilex) 4 mg gum 4 mg PO Q2H PRN Withdrawal Symptoms 06/13/23 06/13/23 quetiapine 300 mg tablet 300 mg PO BEDTIME 06/13/23 06/13/23 quetiapine 50 mg tablet,extended 50 mg PO QAM 06/13/23 06/13/23 release 24 hr Allergies Allergy/AdvReac Type Severity Reaction Status Date / Time No Known Allergies Allergy Verified 08/05/23 16:17 [No Known Allergies*] Review of Systems Review of Systems: Unable to obtain due to her altered mental state Yes all other systems are reviewed and are negative ON LICENSE OF [facility] Past Medical History Medical History History of drug dependence/abuse Atypical bipolar disorder Opiate withdrawal Acute anxiety Drug-induced psychotic disorder Depression PTSD (post-traumatic stress disorder) Anxiety Depression Social History Social History Household Members: None Household Members Other:: grandmother Housing: Unknown / Unable to assess Do you presently have visiting nurse or other home services: No Unable to assess alcohol history related to: Unable to respond 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: never 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 Patient Tobacco Use Status: Tobacco use Unknown Cigarette Packs Per Day: 1.5 Cigarettes Per Day: 30.0 Years Smoked: 23 Second Hand Smoke Exposure: Yes Substance Use Type: Crack/Cocaine and Heroin Advance Directives: No Advance Directives Information Provided: No service: No Current occupational status: unemployed Sexual orientation: Straight/Heterosexual Physical Exam Vital Signs: Vital Signs: Last Vital Signs Temp 98.0 F 08/05/23 19:24 Pulse 72 08/05/23 19:24 Resp 16 08/05/23 19:24 BP 112/72 08/05/23 19:24 Pulse Ox 100 08/05/23 19:24 O2 Del Method Nasal Cannula 08/05/23 19:24 O2 Flow Rate 2 08/05/23 19:24 BMI result Body Mass Index 19.7 General: Sweaty agitated and [id number] distress screaming nonsensical HEENT: Normocephalic atraumatic Neck: No signs of JVD, no masses no tenderness or lymphadenopathy Cardiovascular: Regular rate and rhythm Respiratory: Clear to auscultation bilaterally Abdomen: Soft nontender no masses Extremities: Normal pedal pulses no signs of edema Skin: Dry warm no rashes Back: No tenderness full ROM Course Reevaluation(s) Reevaluation #1: Patient is awake and alert looks well we will draw labs but the IV dye placed did blow. We will continue with care team patient does not need IV hopefully the patient can go home care team can see the patient. Reevaluation #2: 1943 labs do show a mild rhabdomyolysis kidney function is normal patient is eating and drinking looks well does want to go home she has no thoughts of SI or HI her psychosis has resolved I do not think she needs to crisis discharge the patient home Medications Administered Discontinued Medications Generic Name Dose Route Start Last Admin Trade Name Freq PRN Reason Stop Dose Admin Diphenhydramine HCl 50 mg 08/05/23 16:13 08/05/23 16:10 Diphenhydramine Hcl 50 Mg/Ml Vial IM 08/05/23 16:14 50 mg ONCE ONE Administration Droperidol 2.5 mg 08/05/23 16:09 08/05/23 16:10 Droperidol 5 Mg/2 Ml Vial IM 08/05/23 16:10 2.5 mg ONCE ONE Administration Sodium Chloride 1,000 mls @ 999 mls/hr 08/05/23 16:15 08/05/23 18:45 Ns IV 08/05/23 17:15 999 mls/hr .Q1H1M JAIR Administration Lorazepam 2 mg 08/05/23 16:13 08/05/23 16:10 Lorazepam 2 Mg/Ml Vial IM 08/05/23 16:14 2 mg STAT STA Administration Medical Decision Making Medical Decision Making [facility] Narrative: I will start the patient with droperidol Ativan Benadryl fluids and check lab Differential Diagnosis Differential Diagnoses: The differential diagnosis associated with the presentation includes Stimulant use agitation cocaine use altered mental status acutely psychotic acute milagro electrolyte abnormality dehydration Admission/Observation Consideration of admission/observation: Escalation of care including admission/observation considered Consult Healthcare Provider Management of the patient was discussed with: Behavioral Health Provider Lab Data [facility] Lab Attestation statement: I reviewed the patient's lab results. 08/05/23 18:43 08/05/23 18:43 Labs: Lab Results 08/05/23 08/05/23 Range/Units 17:03 18:43 WBC 6.4 (4.8-10.8) X10*3/uL RBC 3.83 L (4.20-5.50) X10*6/uL Hgb 10.8 L (12.0-16.0) g/dl Hct 33.7 L (37.0-47.0) % MCV 88.0 (80.0-98.0) fL MCH 28.2 (27.0-33.0) pg MCHC 32.0 (31.0-35.0) g/dl RDW 15.9 (11.0-16.0) % Plt Count 271 (160-400) X10*3/uL MPV 9.2 L (9.4-12.3) fL Immature Gran % (Auto) 0.2 (0.0-0.4) % Neut % (Auto) 79.2 H (45-73) % Lymph % (Auto) 16.7 L (20-40) % Barry % (Auto) 3.3 (2-11) % Eos % (Auto) 0.3 (0-4) % Baso % (Auto) 0.3 (0-2) % Lymph # (Auto) 1.1 L (1.2-4.9) X10*3/uL Barry # (Auto) 0.2 (0.1-1.2) X10*3/uL Eos # (Auto) 0.0 (0.0-0.4) X10*3/uL Baso # (Auto) 0.0 (0.0-0.2) X10*3/uL Abs Immat Gran (auto) 0.01 (0.00-0.03) X10*3/uL Absolute Neuts (auto) 5.1 (2.0-8.3) x10*3/uL Absolute Nucleated RBC 0.000 (0.0-0.012) X10*3/uL Nucleated RBC % (auto) 0.0 (0.0-0.2) /100WBC Sodium 142 (135-145) mmol/L Potassium 4.5 (3.3-5.1) mmol/L Chloride 106 (96-108) mmol/L Carbon Dioxide 26 (22-29) mmol/L Anion Gap 15 (12-20) BUN 23 H (9-16) mg/dL Creatinine 0.92 (0.5-1.4) mg/dL Estim Creat Clear Calc 71.7 Estimated GFR > 60 Random Glucose 78 (60-115) mg/dL Lactic Acid 0.7 (0.5-2.0) mmol/L Calcium 10.3 H D (8.4-10.2) mg/dL Total Bilirubin 0.4 (0.0-1.0) mg/dL Direct Bilirubin 0.1 (0.0-0.5) mg/dL AST 36 H (5-31) U/L ALT 21 (0-31) U/L Alkaline Phosphatase 72 (39-117) U/L Ammonia 42 (13-55) umol/L Total Creatine Kinase 1242 H (26-140) U/L Troponin I High Sens 13.6 (<3.5-17.0) ng/L Total Protein 8.5 H (6.5-8.0) g/dL Albumin 4.5 (3.5-5.0) g/dL Lipase 9 (8-78) U/L Ethyl Alcohol < 10 mg/dL COVID-19 (AUTUMN) Negative (Negative) COVID-19 Clin Com See Note Independent Interpretation I performed an independent interpretation of an: EKG Interpretation: Nine sinus tachycardia normal intervals no signs of ischemia no change from previous interpreted by me Radiology Impression Discussion of test interpretation with radiology: I have reviewed the radiologist's reading. Independent Historian Clinical information obtained from an independent historian. History obtained from or confirmed by: EMS External Record Review External record reviewed: Inpatient record, Office record and Outpatient record Social Determinants Patient?s care significantly limited by Social Determinants of Health including: Inadequate housing, Alcoholism and drug addiction in family, Problems related to primary support group and Other Social Determinant of Health Procedures Procedure Narrative Procedure Narrative: We are unable to get an IV established with nursing staff or get blood on the patient I was assisted at the bedside with 1 of our bedside text. Unfortunately during the 2nd attempt the patient did and needle did graze the [employer] hand exposure labs were sent. On the 3rd attempt on the right arm I was able to get IV access with a 20 gauge needle which did flush and draw back well patient tolerated the procedure well Discharge Plan Discharge Clinical Impression: Cocaine use disorder, Bipolar disorder Patient Disposition: Home, Self-Care Instructions: Cocaine Abuse (ED), Bipolar Disorder (DC), Polysubstance Abuse (ED) Additional Instructions: You seen in the emergency department for altered mental status hallucinations You were given medications and your behavioral issues has improved greatly. Please call follow up with . Please do not do drugs Prescriptions: No Action quetiapine 300 mg tablet 300 mg PO BEDTIME divalproex 250 mg tablet,delayed release (DR/EC) 250 mg PO BID hydroxyzine pamoate 50 mg capsule 50 mg PO TID PRN (Reason: Anxiety) gabapentin 800 mg tablet 800 mg PO TID nicotine (polacrilex) 4 mg gum 4 mg PO Q2H PRN (Reason: Withdrawal Symptoms) loratadine 10 mg tablet 10 mg PO DAILY atomoxetine 100 mg capsule 100 mg PO DAILY quetiapine 50 mg tablet extended release 24 hr 50 mg PO QAM Print Language: Kazakh
--- NOTE | 2023-08-05 16:13 | ECG_ITS ---
Test Reason : AMS Blood Pressure : / mmHG Vent. Rate : 099 BPM Atrial Rate : 099 BPM P-R Int : 126 ms QRS Dur : 086 ms QT Int : 416 ms P-R-T Axes : 066 -16 058 degrees QTc Int : 533 ms Normal sinus rhythm Possible Left atrial enlargement Septal infarct , age undetermined Prolonged QT Abnormal ECG When compared with ECG of 08-JUL-2022 08:55, Vent. rate has increased BY 46 BPM T wave inversion no longer evident in Inferior leads QT has lengthened Referred By: Dimitri Galvin Electronically Signed By:Richard Plascencia
--- NOTE | 2023-08-05 17:37 | PC.NURSE ---
pt arrived at approx 1600 with ems, police, charge hand assisted with patient until this nurse was able to take over, pt was placed in 4pt restraints and chemically restrained as well, 1:1 sitter was at bedside, pt screaming/thrashing in bed/concoporative and hallucinating at the time. currently patient is sleeping, wakes to verbal stimulus and is aware she is at [facility]- unsure of the date/time. environmental monitoring specialist is intact, vitals have been stable throughout, restraints were released at 1710, unable to obtain IV access or labs- provider was notified of this and stated he would attempt himself. call bond within reach, will continue to monitor.
[2023-08-05 18:35] LABS: COVID-19 Test Negative (Negative); IDNOW Serial# 08D9AD1C
[2023-08-05] MEDS: 0.9 % Sodium Chloride 1,000 ML 999 ML IV (18:45)
[2023-08-05 18:51] LABS: MANUAL DIFF FLAG NO
[2023-08-05 18:54] LABS: Basophils Percent Auto 0.3 % (0-2); Eosinophils Percent Auto 0.3 % (0-4); Hematocrit 33.7 % (37.0-47.0); Hemoglobin 10.8 g/dl (12.0-16.0); Imm Gran Abs Auto 0.01 X10*3/uL (0.00-0.03); Imm Gran Pct Auto 0.2 % (0.0-0.4); Lymphocytes Absolute Auto 1.1 X10*3/uL (1.2-4.9); Lymphocytes Percent Auto 16.7 % (20-40); Mean Corpuscular Hemoglobin 28.2 pg (27.0-33.0); Mean Platelet Volume 9.2 fL (9.4-12.3); Monocytes Absolute Auto 0.2 X10*3/uL (0.1-1.2); Monocytes Percent Auto 3.3 % (2-11); Neutrophils Absolute Auto 5.1 x10*3/uL (2.0-8.3); Neutrophils Percent Auto 79.2 % (45-73); Platelet Count 271 X10*3/uL (160-400); Red Blood Count 3.83 X10*6/uL (4.20-5.50); Red Cell Distribution Width 15.9 % (11.0-16.0); White Blood Count 6.4 X10*3/uL (4.8-10.8)
[2023-08-05 18:57] LABS: Ammonia 42 umol/L (13-55)
[2023-08-05 19:01] LABS: Lactic Acid 0.7 mmol/L (0.5-2.0)
[2023-08-05 19:13] LABS: Alanine Aminotransferase 21 U/L (0-31); Albumin Level 4.5 g/dL (3.5-5.0); Alkaline Phosphatase 72 U/L (39-117); Anion Gap 15 (12-20); Aspartate Amino Transferase 36 U/L (5-31); Bilirubin Direct 0.1 mg/dL (0.0-0.5); Bilirubin Total 0.4 mg/dL (0.0-1.0); Blood Urea Nitrogen 23 mg/dL (9-16); Calcium 10.3 mg/dL (8.4-10.2); Carbon Dioxide 26 mmol/L (22-29); Chloride 106 mmol/L (96-108); Creatinine Clr Calc Pharmacy 71.7; Estimated Glomerular Filt Rate > 60; Ethanol < 10 mg/dL; Glucose Random 78 mg/dL (60-115); Lipase 9 U/L (8-78); Potassium 4.5 mmol/L (3.3-5.1); Sodium 142 mmol/L (135-145); Total Protein 8.5 g/dL (6.5-8.0)
[2023-08-05 19:16] LABS: Troponin-I High Sensitivity 13.6 ng/L (<3.5-17.0)
[2023-08-05 19:26] LABS: HIV AB/AG Nonreactive (Nonreactive); HIV Num 1 0.04 S/CO (0.00-0.99)
--- NOTE | 2023-08-05 19:40 | MHC.EDTECH ---
This tech took over care of patient at 1900,patient's pants were removed and all belongings placed in [facility]. Hourly rounds and vitals completed,This tech obtained the second set of blood cultures and sent to lab. Belongings list completed. Patient was given a dinner tray,2 jellos and claire crackers. patient is sitting up eating,call bond in reach.
[2023-08-06 04:32] LABS: HBS Num1 1.93 mIU/mL (0-7.99); HBc Num1 0.16 S/CO (0.00-0.79); HBsAGNum1 0.25 S/CO (0.00-0.99); Hepatitis B Core Antibody Nonreactive (Nonreactive); Hepatitis B Surface Antigen Negative (Negative); ~HepC Num1 12.58 S/CO (0.00-0.79); ~Hepatitis B Surface Antibody NONREACTIVE (Nonreactive); ~Hepatitis C Antibody Reactive (Nonreactive)
== END 2023-08-05 21:15 | disposition home or self-care (01) ==
PROVIDERS: Emergency Provider Student in an Organized Health Care Education/Training Program
DX: R41.82 Altered mental status, unspecified (principal); R44.0 Auditory hallucinations; R94.31 Abnormal electrocardiogram [ECG] [EKG]; F14.10 Cocaine abuse, uncomplicated; Z79.899 Other long term (current) drug therapy; Z11.52 Encounter for screening for COVID-19
CPT/HCPCS: 71045; 80048; 80076; 80307; 82140; 82550; 83605; 83690; 84484; 85025; 86704; 86706; 86803; 87040; 87077; 87186; 87205; 87340; 87635; 93005; 96372; 99284; 99285; J1200; J1790; J2060

== ENCOUNTER → 2023-08-05 16:13 | Outpatient (BNV) | payer MEDICAID, SELFPAY | PROVIDERS: Emergency Provider Student in an Organized Health Care Education/Training Program; Visit Provider Internal Medicine Cardiovascular Disease | DX: R41.82 Altered mental status, unspecified (principal) | CPT/HCPCS: 93010 ==

== ENCOUNTER 2023-08-08 12:03 | Emergency (ER) | payer OTHER, SELFPAY ==
[2023-08-08 12:09] VITALS: PULSE 121; O2SAT 99
[2023-08-08] MEDS: LORazepam 1 MG TABLET 2 MG PO (12:22)
[2023-08-08] MEDS: HaloperidoL 5 MG TABLET PO (12:22)
[2023-08-08 12:30] VITALS: BP 147/98; PULSE 114; RESP 18; O2SAT 99; BMI 26.4
--- NOTE | 2023-08-08 12:43 | ED.GENADULT ---
HPI - General Adult General Chief complaint: ETOH/Substance Use Stated complaint: PCP USE, UNCOOPERATIVE Time Seen by Provider: 08/08/23 12:07 Source: patient Mode of arrival: EMS Limitations: altered mental status History of Present Illness HPI narrative: Patient is a 37-year-old female with past medical history of bipolar disorder, polysubstance use disorder presenting to the emergency department via EMS PD on scene for erratic behavior after PCP usage. On arrival to the ED she was yelling and screaming that she was being electrocuted, initially with difficulty being redirected, however nursing staff who were familiar with patient after having seen her 2 days ago were able to calm the patient was verbal reassurance. She continues to state she feels she is being electrocuted by the stretcher, she is requesting medication to help her relax and is willing to take oral medications. She has not aggressive towards staff. Related Data Home Medications ?Medication ?Instructions ?Recorded ?Confirmed gabapentin 800 mg tablet 800 mg PO TID 08/09/23 08/09/23 quetiapine 300 mg tablet 300 mg PO BEDTIME 08/09/23 08/09/23 Allergies Allergy/AdvReac Type Severity Reaction Status Date / Time No Known Allergies Allergy Verified 08/08/23 12:37 [No Known Allergies*] Review of Systems Review of Systems: Yes all other systems are reviewed and are negative PMFSH Past Medical History Attestation statement: The following information was validated with the patient. Source: old records reviewed Medical History History of drug dependence/abuse Atypical bipolar disorder Opiate withdrawal Acute anxiety Drug-induced psychotic disorder Depression PTSD (post-traumatic stress disorder) Anxiety Depression Social History Social History Household Members: None Household Members Other:: grandmother Housing: Unknown / Unable to assess Do you presently have visiting nurse or other home services: No Unable to assess alcohol history related to: Unable to respond 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: never 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 Patient Tobacco Use Status: Tobacco use Unknown Cigarette Packs Per Day: 1.5 Cigarettes Per Day: 30.0 Years Smoked: 23 Smoked in Last 30 Days: Yes Second Hand Smoke Exposure: Yes Use of substances other than those prescribed or required for medical reasons: Yes Substance Use Type: Crack/Cocaine, Heroin and Other Substance Use Type Other:: pcp Substance Use Frequency: Chronic Longstanding Advance Directives: No Advance Directives Information Provided: No service: No Current occupational status: unemployed Sexual orientation: Straight/Heterosexual Physical Exam ED Vital Signs: Vital Signs - 24 hr 08/08/23 12:30 08/08/23 16:11 08/08/23 23:14 Temperature 97.4 F 98.5 F Pulse Rate 114 H 75 74 Respiratory Rate 18 16 16 Blood Pressure 147/98 H 128/78 112/80 Pulse Oximetry 99 98 96 Oxygen Delivery Method Room Air Room Air Room Air BMI result Body Mass Index 26.4 Course Reevaluation(s) Reevaluation #1: Spoke with patient at bedside about discharge planning. At this time she states she would like assistance with detox from heroin, cocaine, crack cocaine. Is now agreeable to have serum labs urinalysis obtained for clearance to speak with recovery room rn. Patient signed out to Quang NICHOLSON pending serum labs and care team/with recovery assistance with detox. She is here voluntarily. If she decides that she wishes to be discharged, I see no reason at this time that she would need to be held in the emergency department, no indication for section 12. Time: 16:10 Reevaluation #2: Patient's labs were drawn. She is medically cleared for addiction medicine/care team evaluation. Time: 23:17 Reevaluation #3: Continue physician observation, no acute issues overnight, care team pending. Time: 07:49 Medications Administered Discontinued Medications Generic Name Dose Route Start Last Admin Trade Name Dheerajq PRN Reason Stop Dose Admin Diphenhydramine HCl 50 mg 08/08/23 12:05 08/08/23 12:29 Diphenhydramine Hcl 50 Mg/Ml Vial IM 08/08/23 12:06 Not Given ONCE ONE Droperidol 2.5 mg 08/08/23 12:05 08/08/23 12:29 Droperidol 5 Mg/2 Ml Vial IM 08/08/23 12:06 Not Given ONCE ONE Haloperidol 5 mg 08/08/23 12:16 08/08/23 12:22 Haloperidol 5 Mg Tablet PO 08/08/23 12:17 5 mg ONCE ONE Administration Lorazepam 2 mg 08/08/23 12:18 08/08/23 12:22 Lorazepam 1 Mg Tablet PO 08/08/23 12:19 2 mg ONCE ONE Administration Medical Decision Making Medical Decision Making [facility] Narrative: Patient is a 37-year-old female with past medical history of polysubstance use disorder admittedly having used PCP earlier today presenting by EMS in police custody was able to be redirected verbally by staff and amenable to oral medication to calm her down. She declines interest in detox at this time. Patient received Haldol and Ativan p.o.. Differential Diagnosis Differential Diagnoses: The differential diagnosis associated with the presentation includes (Polysubstance use disorder, anxiety, depression) Admission/Observation Consideration of admission/observation: Escalation of care including admission/observation considered (Patient require physician observation so that care team can facilitate assistance with recovery medicine and detox services) Consult Healthcare Provider Management of the patient was discussed with: Behavioral Health Provider Lab Data [facility] Lab Attestation statement: I reviewed the patient's lab results. 08/08/23 20:38 08/08/23 20:38 Labs: Lab Results 08/08/23 08/09/23 Range/Units 20:38 03:52 WBC 5.0 (4.8-10.8) X10*3/uL RBC 3.50 L (4.20-5.50) X10*6/uL Hgb 9.8 L (12.0-16.0) g/dl Hct 30.9 L (37.0-47.0) % MCV 88.3 (80.0-98.0) fL MCH 28.0 (27.0-33.0) pg MCHC 31.7 (31.0-35.0) g/dl RDW 15.9 (11.0-16.0) % Plt Count 188 D (160-400) X10*3/uL MPV 9.9 (9.4-12.3) fL Immature Gran % (Auto) 0.2 (0.0-0.4) % Neut % (Auto) 50.3 (45-73) % Lymph % (Auto) 38.7 (20-40) % [place] % (Auto) 8.4 (2-11) % Eos % (Auto) 2.0 (0-4) % Baso % (Auto) 0.4 (0-2) % Lymph # (Auto) 1.9 (1.2-4.9) X10*3/uL [place] # (Auto) 0.4 (0.1-1.2) X10*3/uL Eos # (Auto) 0.1 (0.0-0.4) X10*3/uL Baso # (Auto) 0.0 (0.0-0.2) X10*3/uL Abs Immat Gran (auto) 0.01 (0.00-0.03) X10*3/uL Absolute Neuts (auto) 2.5 (2.0-8.3) x10*3/uL Absolute Nucleated RBC 0.000 (0.0-0.012) X10*3/uL Nucleated RBC % (auto) 0.0 (0.0-0.2) /100WBC Smear Tech's Comments VERIFIED Sodium 140 (135-145) mmol/L Potassium 3.4 D (3.3-5.1) mmol/L Chloride 103 (96-108) mmol/L Carbon Dioxide 28 (22-29) mmol/L Anion Gap 12 (12-20) BUN 18 H (9-16) mg/dL Creatinine 0.80 (0.5-1.4) mg/dL Estim Creat Clear Calc 79.5 Estimated GFR > 60 Random Glucose 106 (60-115) mg/dL Calcium 9.8 (8.4-10.2) mg/dL Total Bilirubin 0.2 (0.0-1.0) mg/dL AST 31 (5-31) U/L ALT 22 (0-31) U/L Alkaline Phosphatase 74 (39-117) U/L Total Protein 7.5 (6.5-8.0) g/dL Albumin 3.9 (3.5-5.0) g/dL Urine Color Yellow Urine Appearance Cloudy Urine pH 6.0 (5.0-9.0) Ur Specific Alma >= 1.030 H (1.005-1.025) Urine Protein Trace (Neg-Trace) mg/dL Urine Glucose (UA) Negative (Negative) mg/dL Urine Ketones Trace (Negative) mg/dL Urine Blood Negative (Negative) Urine Nitrite Negative (Negative) Ur Leukocyte Esterase Negative (Negative) Urine Test NEGATIVE (NEGATIVE) Urine Opiates Screen POSITIVE H (Not Detect) Ur Buprenorphine Scrn Not Detected (Not Detect) ng/mL Ur Oxycodone Screen Not Detected (Not Detect) ng/mL Urine Methadone Screen Positive H (Not Detect) ng/mL Urine Fentanyl Screen POSITIVE H (Not Detect) Ur Barbiturates Screen Not Detected (Not Detect) Ur Phencyclidine Scrn Not Detected (Not Detect) Ur Amphetamines Screen Not Detected (Not Detect) U Benzodiazepines Scrn Not Detected (Not Detect) Urine Cocaine Screen POSITIVE H (Not Detect) U Marijuana (THC) Screen Not Detected (Not Detect) Ethyl Alcohol < 10 mg/dL Independent Historian Clinical information obtained from an independent historian. History obtained from or confirmed by: EMS Discharge Plan Discharge Clinical Impression: Polysubstance use disorder Patient Disposition: Still a Patient Prescriptions: No Action quetiapine 300 mg tablet 300 mg PO BEDTIME gabapentin 800 mg tablet 800 mg PO TID Print Language: Bengali
--- NOTE | 2023-08-08 13:43 | PC.NURSE ---
patient has remained calm and cooperative, given snacks and juice/gingerale.
--- NOTE | 2023-08-08 15:32 | PC.NURSE ---
patient ate lunch tray, appears to be asleep, respirations equal and unlabored.
[2023-08-08 16:11] VITALS: BP 128/78; PULSE 75; RESP 16; TEMP 36.3; O2SAT 98
[2023-08-08 20:52] LABS: Basophils Percent Auto 0.4 % (0-2); Eosinophils Absolute Auto 0.1 X10*3/uL (0.0-0.4); Hematocrit 30.9 % (37.0-47.0); Hemoglobin 9.8 g/dl (12.0-16.0); Imm Gran Abs Auto 0.01 X10*3/uL (0.00-0.03); Imm Gran Pct Auto 0.2 % (0.0-0.4); Lymphocytes Absolute Auto 1.9 X10*3/uL (1.2-4.9); Lymphocytes Percent Auto 38.7 % (20-40); MANUAL DIFF FLAG SCAN; Mean Corpuscular HGB Conc 31.7 g/dl (31.0-35.0); Mean Corpuscular Volume 88.3 fL (80.0-98.0); Mean Platelet Volume 9.9 fL (9.4-12.3); Monocytes Absolute Auto 0.4 X10*3/uL (0.1-1.2); Monocytes Percent Auto 8.4 % (2-11); Neutrophils Absolute Auto 2.5 x10*3/uL (2.0-8.3); Neutrophils Percent Auto 50.3 % (45-73); PLT CLUMP 1; Platelet Count 188 X10*3/uL (160-400); Red Cell Distribution Width 15.9 % (11.0-16.0); SCAN SMEAR FLAG 1
[2023-08-08 20:59] LABS: Alanine Aminotransferase 22 U/L (0-31); Albumin Level 3.9 g/dL (3.5-5.0); Alkaline Phosphatase 74 U/L (39-117); Anion Gap 12 (12-20); Aspartate Amino Transferase 31 U/L (5-31); Bilirubin Total 0.2 mg/dL (0.0-1.0); Blood Urea Nitrogen 18 mg/dL (9-16); Calcium 9.8 mg/dL (8.4-10.2); Carbon Dioxide 28 mmol/L (22-29); Chloride 103 mmol/L (96-108); Creatinine Clr Calc Pharmacy 79.5; Estimated Glomerular Filt Rate > 60; Glucose Random 106 mg/dL (60-115); Potassium 3.4 mmol/L (3.3-5.1); Sodium 140 mmol/L (135-145); Total Protein 7.5 g/dL (6.5-8.0)
[2023-08-08 21:12] LABS: SLIDE REVIEW VERIFIED
[2023-08-08 23:14] VITALS: BP 112/80; PULSE 74; RESP 16; TEMP 36.9; O2SAT 96
--- NOTE | 2023-08-09 00:39 | MHC.EDTECH ---
PT BELONGINGS IN DECON.
[2023-08-09 00:52] LABS: Ethanol < 10 mg/dL
[2023-08-09 04:09] LABS: Appearance Urine Cloudy; Color Urine Yellow; Glucose Urine UA Negative (Negative); Leukocyte Esterase Urine Negative (Negative); Nitrite Urine Negative (Negative); Specific Gravity - Urine >= 1.030 (1.005-1.025); Urine Blood Negative (Negative); Urine Ketones Trace mg/dL (Negative); Urine Protein Trace mg/dL (Neg-Trace)
[2023-08-09 04:11] LABS: UPreg QC Valid YES; Urine Pregnancy NEGATIVE (NEGATIVE)
[2023-08-09 04:24] LABS: Amphetamine Screen Urine Not Detected (Not Detect); Barbiturates, Urine Not Detected (Not Detect); Benzodiazepines Screen Urine Not Detected (Not Detect); Buprenorphine Scr Not Detected (Not Detect); Cannabinoid Screen Urine Not Detected (Not Detect); Cocaine Screen Urine POSITIVE (Not Detect); Fentanyl, urine POSITIVE (Not Detect); Methadone Screen, Urine Positive (Not Detect); Opiate Screen Urine POSITIVE (Not Detect); Oxycodone Screen Urine Not Detected (Not Detect); Phencyclidine Screen Urine Not Detected (Not Detect)
--- NOTE | 2023-08-09 06:36 | PC.NURSE ---
Patient slept through the night, no distress observed/reported, med rec completed/pending provider's approval, VSS, care consult ordered for detox, pending evaluation, will continue to monitor
--- NOTE | 2023-08-09 07:07 | PC.NURSE ---
Assumed care of patient at 0645. Patient is observed sleeping in her bed. No signs of distress, breathing is even and unlabored. Will continue plan of care.
--- NOTE | 2023-08-09 08:37 | HE.PHANOTE ---
RE: methadone Received last dose verification from [facility] for 190mg on 08/06/23 @6416
[2023-08-09] MEDS: methADONE HCl 20 MG/2 ML ORAL.CONC 190 MG PO (08:49)
[2023-08-09] MEDS: Gabapentin 400 MG CAPSULE 800 MG PO (08:50)
[2023-08-09] MEDS: Acetaminophen 325 MG TABLET 650 MG PO (09:17)
--- NOTE | 2023-08-09 10:07 | MHC.RECOVRN ---
Met with pt in POD after consult placed to Addiction Medicine for Detox. Pt had presented to the ED from home via ambulance in an altered state. Upon evaluation, pt admitted to PCP use. Pt reports she is currently on methadone, just prior to my arrival she recieved her dose. Pt sitting up in chair eating breakfast when I met with her, at first stating she was only interested in going home, stated I just want care team to send me home . Pt changed her mind throughout the conversation, ending it with if naya can take me in the next like 10 minutes to an hour Ill go, but really I just want to go home I relayed this to Marcelo from Care team, I will re connect after he sees her to see if she is interested in Detox or not. Discussed with Flower Donohue APRN.??
[2023-08-09 10:34] VITALS: BP 112/80; PULSE 74; RESP 16; TEMP 36.9; O2SAT 96
== END 2023-08-09 10:36 | disposition home or self-care (01) ==
PROVIDERS: Internal Medicine; Nurse Practitioner Family; Emergency Provider Student in an Organized Health Care Education/Training Program
DX: A49.02 Methicillin resistant Staphylococcus aureus infection, unspecified site (principal); F19.90 Other psychoactive substance use, unspecified, uncomplicated; F91.9 Conduct disorder, unspecified; Z79.899 Other long term (current) drug therapy
CPT/HCPCS: 36415; 80053; 80307; 81003; 81025; 85025; 99284; S9485

== ENCOUNTER 2023-08-11 20:39 | Emergency (ER) | payer MEDICAID, SELFPAY ==
[2023-08-11 20:42] VITALS: BP 120/88; PULSE 95; RESP 18; TEMP 36.8; O2SAT 98; BMI 20.6
--- NOTE | 2023-08-11 20:49 | ED.GENADULT ---
HPI - General Adult General Chief complaint: Recheck/Abnormal Lab/Rx Stated complaint: got a call for blood results to come back in History of Present Illness HPI narrative: Left without completion of treatment Related Data Home Medications ?Medication ?Instructions ?Recorded ?Confirmed gabapentin 800 mg tablet 800 mg PO TID 08/09/23 08/09/23 methadone 10 mg/mL oral 190 mg PO DAILY 08/09/23 08/09/23 concentrate (Methadose) quetiapine 300 mg tablet 300 mg PO BEDTIME 08/09/23 08/09/23 Allergies Allergy/AdvReac Type Severity Reaction Status Date / Time No Known Allergies Allergy Verified 08/12/23 06:32 [No Known Allergies*] [facility] Past Medical History Medical History History of drug dependence/abuse Atypical bipolar disorder Opiate withdrawal Acute anxiety Drug-induced psychotic disorder Depression PTSD (post-traumatic stress disorder) Anxiety Depression Social History Social History Household Members: None Household Members Other:: grandmother Housing: Unknown / Unable to assess Do you presently have visiting nurse or other home services: No Unable to assess alcohol history related to: Unable to respond 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: never 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 Patient Tobacco Use Status: Tobacco use Unknown Cigarette Packs Per Day: 1.5 Cigarettes Per Day: 30.0 Years Smoked: 23 Second Hand Smoke Exposure: Yes Substance Use Type: Crack/Cocaine, Heroin and Other Do you have a plan to hurt others: No Plan service: No Current occupational status: unemployed Sexual orientation: Straight/Heterosexual Physical Exam ED Vital Signs: Vital Signs - 24 hr 08/11/23 20:42 Temperature 98.2 F Pulse Rate 95 Respiratory Rate 18 Blood Pressure 120/88 Pulse Oximetry 98 Oxygen Delivery Method Room Air BMI result Body Mass Index 20.6 Course Course Course Narrative: RME: Triage by BHARAT Crabtree. Patient brought to the ED for positive blood culture or MRSA. Patient will need to be admitted. Patient informed to wait to be admitted. Spoke with charge nurse for patient to be brought to the ED for bed for IV antibiotics. Labs IV antibiotics ordered. Patient informed not to leave and explained risks of if bactermia not treatment. patient informed to wait for bed. Patient not toxic appearing. has excoriations on extremities. maybe mRSA rash. Medical Decision Making Lab Data 08/11/23 21:16 08/11/23 21:16 Labs: Lab Results 08/11/23 Range/Units 21:16 WBC 6.1 (4.8-10.8) X10*3/uL RBC 3.64 L (4.20-5.50) X10*6/uL Hgb 10.2 L (12.0-16.0) g/dl Hct 32.2 L (37.0-47.0) % MCV 88.5 (80.0-98.0) fL MCH 28.0 (27.0-33.0) pg MCHC 31.7 (31.0-35.0) g/dl RDW 16.2 H (11.0-16.0) % Plt Count 293 D (160-400) X10*3/uL MPV 9.1 L (9.4-12.3) fL Immature Gran % (Auto) 0.2 (0.0-0.4) % Neut % (Auto) 64.7 (45-73) % Lymph % (Auto) 26.8 (20-40) % Daniels % (Auto) 6.9 (2-11) % Eos % (Auto) 1.1 (0-4) % Baso % (Auto) 0.3 (0-2) % Lymph # (Auto) 1.6 (1.2-4.9) X10*3/uL Daniels # (Auto) 0.4 (0.1-1.2) X10*3/uL Eos # (Auto) 0.1 (0.0-0.4) X10*3/uL Baso # (Auto) 0.0 (0.0-0.2) X10*3/uL Abs Immat Gran (auto) 0.01 (0.00-0.03) X10*3/uL Absolute Neuts (auto) 4.0 (2.0-8.3) x10*3/uL Absolute Nucleated RBC 0.000 (0.0-0.012) X10*3/uL Nucleated RBC % (auto) 0.0 (0.0-0.2) /100WBC Sodium 142 (135-145) mmol/L Potassium 4.1 D (3.3-5.1) mmol/L Chloride 106 (96-108) mmol/L Carbon Dioxide 25 (22-29) mmol/L Anion Gap 15 (12-20) BUN 17 H (9-16) mg/dL Creatinine 0.91 (0.5-1.4) mg/dL Estim Creat Clear Calc 73.4 Estimated GFR > 60 Random Glucose 95 (60-115) mg/dL Lactic Acid 0.7 (0.5-2.0) mmol/L Calcium 9.8 (8.4-10.2) mg/dL Total Bilirubin 0.2 (0.0-1.0) mg/dL AST 29 (5-31) U/L ALT 21 (0-31) U/L Alkaline Phosphatase 78 (39-117) U/L Total Protein 7.9 (6.5-8.0) g/dL Albumin 4.1 (3.5-5.0) g/dL Discharge Plan Discharge Clinical Impression: MRSA (methicillin resistant staph aureus) culture positive Patient Disposition: Left W/O Completing Treatment Prescriptions: No Action quetiapine 300 mg tablet 300 mg PO BEDTIME gabapentin 800 mg tablet 800 mg PO TID methadone [Methadose] 10 mg/mL Concentrate 190 mg PO DAILY Discharge Date/Time: 08/11/23 23:50
--- NOTE | 2023-08-11 21:19 | MHC.EDTECH ---
Patient brought into triage area,1ST and 2ND set of blood cultures and labs were obtained and sent to lab
[2023-08-11 21:25] LABS: MANUAL DIFF FLAG NO
[2023-08-11 21:29] LABS: Basophils Percent Auto 0.3 % (0-2); Eosinophils Absolute Auto 0.1 X10*3/uL (0.0-0.4); Eosinophils Percent Auto 1.1 % (0-4); Hematocrit 32.2 % (37.0-47.0); Hemoglobin 10.2 g/dl (12.0-16.0); Imm Gran Abs Auto 0.01 X10*3/uL (0.00-0.03); Imm Gran Pct Auto 0.2 % (0.0-0.4); Lymphocytes Absolute Auto 1.6 X10*3/uL (1.2-4.9); Lymphocytes Percent Auto 26.8 % (20-40); Mean Corpuscular HGB Conc 31.7 g/dl (31.0-35.0); Mean Corpuscular Volume 88.5 fL (80.0-98.0); Mean Platelet Volume 9.1 fL (9.4-12.3); Monocytes Absolute Auto 0.4 X10*3/uL (0.1-1.2); Monocytes Percent Auto 6.9 % (2-11); Neutrophils Percent Auto 64.7 % (45-73); Platelet Count 293 X10*3/uL (160-400); Red Blood Count 3.64 X10*6/uL (4.20-5.50); Red Cell Distribution Width 16.2 % (11.0-16.0); White Blood Count 6.1 X10*3/uL (4.8-10.8)
[2023-08-11 21:40] LABS: Lactic Acid 0.7 mmol/L (0.5-2.0)
[2023-08-11 21:43] LABS: Alanine Aminotransferase 21 U/L (0-31); Albumin Level 4.1 g/dL (3.5-5.0); Alkaline Phosphatase 78 U/L (39-117); Anion Gap 15 (12-20); Aspartate Amino Transferase 29 U/L (5-31); Bilirubin Total 0.2 mg/dL (0.0-1.0); Blood Urea Nitrogen 17 mg/dL (9-16); Calcium 9.8 mg/dL (8.4-10.2); Carbon Dioxide 25 mmol/L (22-29); Chloride 106 mmol/L (96-108); Creatinine Clr Calc Pharmacy 73.4; Estimated Glomerular Filt Rate > 60; Glucose Random 95 mg/dL (60-115); Potassium 4.1 mmol/L (3.3-5.1); Sodium 142 mmol/L (135-145); Total Protein 7.9 g/dL (6.5-8.0)
--- NOTE | 2023-08-11 23:39 | PC.NURSE ---
pt not in waiting room at this time.
--- NOTE | 2023-08-11 23:44 | PC.NURSE ---
Pt initial arrival was d/t call back from this facility for (+) blood cultures for MRSA. Pt LWCT without notifying staff. wire frame lampshade maker Karen notified.
== END 2023-08-11 23:50 | disposition left against medical advice (07) ==
PROVIDERS: Physician Assistant; Emergency Provider Emergency Medicine
DX: A49.02 Methicillin resistant Staphylococcus aureus infection, unspecified site (principal); Z53.21 Procedure and treatment not carried out due to patient leaving prior to being seen by health care provider
CPT/HCPCS: 36415; 80053; 83605; 85025; 87040; 99281; 99283

== ENCOUNTER 2023-08-12 06:15 | Inpatient (IN) | payer MEDICAID, SELFPAY ==
--- NOTE | ~2023-08-12 | XR_ITS ---
EXAMINATION: XR CHEST CLINICAL INFORMATION: Bacteremia COMPARISON: Examination of 7 days previous. TECHNIQUE: Frontal view of the chest was obtained. FINDINGS: No distinct airspace consolidation or pleural effusion seen. Small linear atelectasis or scar toward the left base is again observed, not appearing significantly changed. There is no evidence for pneumothorax. Hilar regions and pulmonary vascularity appear unremarkable. Nipple shadows project toward the lung bases. XR/XR chest 1V IMPRESSION: No evidence for acute process. Small linear atelectasis or scar projecting toward the left base, appearing stable.
[2023-08-12 06:27] VITALS: BP 116/61; PULSE 84; RESP 18; TEMP 36.6; O2SAT 97; BMI 22.3
[2023-08-12 14:35] VITALS: BP 114/72; PULSE 63; RESP 16; TEMP 36.4; O2SAT 100
--- NOTE | 2023-08-12 14:47 | ED_ITS ---
HPI - General Adult General Chief complaint: Recheck/Abnormal Lab/Rx Stated complaint: gen med Time Seen by Provider: 08/12/23 14:22 History of Present Illness HPI narrative: This 37-year-old woman with past medical history of bipolar disorder, polysubstance use disorder who presents for abnormal blood work. Patient states she was seen here yesterday and had blood work done. She states that she was called today and told that she had a bloodstream infection. She reports previous hospitalization for bloodstream infection. She states no fevers. She reports recently injecting. She states that she injects to her bilateral arms and sometimes inside of her feet. She states no chest pain, cough, hemoptysis or dyspnea. She reports that she was recently diagnosed with ?BV and gonorrhea ?. She states ongoing symptoms of dysuria, foul-smelling vaginal secretions and pruritus. She states no abdominal pain, nausea or vomiting. She states no urinary frequency or urgency. Related Data Home Medications ?Medication ?Instructions ?Recorded ?Confirmed gabapentin 800 mg tablet 800 mg PO TID 08/09/23 08/09/23 methadone 10 mg/mL oral 190 mg PO DAILY 08/09/23 08/09/23 concentrate (Methadose) quetiapine 300 mg tablet 300 mg PO BEDTIME 08/09/23 08/09/23 Allergies Allergy/AdvReac Type Severity Reaction Status Date / Time No Known Allergies Allergy Verified 08/12/23 06:32 [No Known Allergies*] Review of Systems Review of Systems: ROS as per HPI [facility] Past Medical History Medical History History of drug dependence/abuse Atypical bipolar disorder Opiate withdrawal Acute anxiety Drug-induced psychotic disorder Depression PTSD (post-traumatic stress disorder) Anxiety Depression Social History Social History (Updated 08/12/23 @ 16:55 by Gwen Fine NP) Household Members: None Household Members Other:: grandmother Housing: Unknown / Unable to assess Do you presently have visiting nurse or other home services: No 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: current 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 frequency: a few times a month Alcohol type: beer, wine and hard liquor 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 Patient Tobacco Use Status: Tobacco use Unknown Cigarette Packs Per Day: 1.5 Cigarettes Per Day: 30.0 Years Smoked: 23 Smoked in Last 30 Days: Yes Second Hand Smoke Exposure: Yes Use of substances other than those prescribed or required for medical reasons: Yes Substance Use Type: Crack/Cocaine, Heroin, IV Drugs and Opiates Substance Use Frequency Other:: Five bundles of heroin a day Last Used Substance: Days (ago) Advance Directives: No Advance Directives Information Provided: No Do you have a plan to hurt others: No Plan service: No Current occupational status: unemployed Sexual orientation: Straight/Heterosexual Physical Exam ED Vital Signs: Vital Signs - 24 hr 08/12/23 06:27 08/12/23 14:35 Temperature 97.8 F 97.6 F Pulse Rate 84 63 Respiratory Rate 18 16 Blood Pressure 116/61 114/72 Pulse Oximetry 97 100 Oxygen Delivery Method Room Air BMI result Body Mass Index 22.3 Gen: NAD, AOx3 HEENT: NCAT, EOMI, normal conjunctiva CV: RRR, 2+ bilateral radial pulses Pulm: CTAB, no increased work of breathing GI: Soft, NTND, no rebound, guarding or rigidity MSK: Bilateral upper extremity and bilateral lower extremity compartments are soft Skin: Multiple areas of excoriated skin to bilateral upper extremities and distal bilateral lower extremities without associated erythema, tenderness to palpation or fluctuance Neuro: Grossly non focal Medications Administered Discontinued Medications Generic Name Dose Route Start Last Admin Trade Name Freq PRN Reason Stop Dose Admin Diazepam 5 mg 08/12/23 14:48 08/12/23 16:01 Diazepam 10 Mg/2 Ml Cartridge IVPUSH 08/12/23 14:49 5 mg STAT STA Administration Lactated Ringer's 1,769.01 mls @ 1,769.01 mls/hr 08/12/23 14:42 08/12/23 16:01 Lr 30 ml/kg infuse over 1 hr (1769.01 ml) 08/12/23 15:41 1,769.01 mls/hr IV Administration .Q1H ONE Medical Decision Making Medical Decision Making MDM Narrative: Differential diagnosis includes, but is not limited to bacteremia, sepsis, endocarditis. Patient is afebrile and hemodynamically stable on room air. I reviewed and interpreted labs, which are noncontributory. I reviewed and interpreted the patient's chest x-ray, which does not demonstrate any focal infiltrate, consolidation or pneumothorax and is unremarkable for any acute findings. Patient is provided 5 mg IV diazepam for anxiolysis while here in the ED. She reports recent diagnosis for her bacterial vaginosis and gonorrhea for which she is treated empirically. Given blood cultures positive for MRSA will treat for MRSA bacteremia. Patient is provided ceftriaxone, doxycycline, metronidazole and vancomycin at 2:42 p.m. She was provided 30 cc/kg IV LR for treatment of sepsis at 2:42 p.m.. I discussed patient's case and management with hospitalist Dr. Cordon and Dr. Fine. Patient is admitted in stable condition for further workup and management to hospitalist Dr. Cordon. Admission/Observation Consideration of admission/observation: Escalation of care including admission/observation considered Consult Healthcare Provider Management of the patient was discussed with: Hospitalist Lab Data MDM Lab Attestation statement: I reviewed the patient's lab results. Independent Interpretation I performed an independent interpretation of an: Plain X-Ray Radiology Impression Discussion of test interpretation with radiology: I have reviewed the radiologist's reading. Radiologist Impression: XR/XR chest 1V IMPRESSION: No evidence for acute process. Small linear atelectasis or scar projecting toward the left base, appearing stable. Dictated By: Kevin Gupta Signed By: <Electronically signed by Kevin Gupta in OV> 08/12/23 [id number] Discharge Plan Discharge Clinical Impression: Positive blood culture Patient Disposition: Admitted As Inpatient
--- NOTE | 2023-08-12 15:31 | PC.NURSE ---
IV attempted x 2. Patient unable to tolerate tourniquet, self removed 1 IV, yelling/cursing in pain. dyno technician made aware. Second Rn to attempt insertion.
--- NOTE | 2023-08-12 15:51 | MHC.EDTECH ---
Amalia josselin 1st set of blood cultures, I just sent them
[2023-08-12] MEDS: diazePAM 10 MG/2 ML CARTRIDGE 5 MG IVPUSH (16:01)
--- NOTE | 2023-08-12 16:09 | PC.NURSE ---
IV insertion successful by third RN Amalia, patient only wants Amalia to draw her from here on out, second set of cultures and additional labwork to be drawn, abx remain on hold pending second culture drawn.
--- NOTE | 2023-08-12 16:54 | P.HPHOSP_ITS ---
<Statement entered by Konstantin Cordon MD - 08/16/23 16:56> the patient was seen and evaluated with BHARAT Fisher. I agree with her note, assessment and plan with the following. In summary, A 37 years old lady with MRSA Bacteremia based on recent labs from 08/05/2023 came to ED after being called. # MRSA bacteremia repeat blood cultures not septic Consult ID Start IV Vancomycin Echocardiogram Rest of evaluations by PA note. History of Present Illness Date of Service: 08/12/23 Chief Complaint: positive blood culture 37-year-old woman with a history of bipolar disorder, polysubstance abuse presented to the ER with abnormal blood work. She was in the ER on 08/04 and 514. She was called today due to a positive blood culture results with MRSA. She denied any fever, chills, nausea, vomiting, chest pain, shortness for breath. She has multiple injection sites to her arms and multiple scabbed areas to her legs. She is hemodynamically stable, labs all within acceptable limits. She was started on Rocephin, doxycycline, Flagyl, vancomycin in the ER. She will be admitted for further management and treatment of MRSA bacteremia. Review of Systems 2 Review of Systems: Denies any recent fever chills or decrease in appetite respiratory denies any shortness of breath or cough cardiovascular denies chest pain gastrointestinal denies any dysphagia abdominal pain nausea vomiting or diarrhea genitourinary denies any dysuria frequency or hematuria musculoskeletal denies any joint pain or swelling neuropsych denies any weakness or seizures all other systems reviewed are negative [facility] Medical History History of drug dependence/abuse Atypical bipolar disorder Opiate withdrawal Acute anxiety Drug-induced psychotic disorder Depression PTSD (post-traumatic stress disorder) Anxiety Depression Social History (Updated 08/12/23 @ 16:55 by Gwen Fine NP) Household Members: None Household Members Other:: grandmother Housing: Unknown / Unable to assess Do you presently have visiting nurse or other home services: No 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: current 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 frequency: a few times a month Alcohol type: beer, wine and hard liquor 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 Patient Tobacco Use Status: Tobacco use Unknown Cigarette Packs Per Day: 1.5 Cigarettes Per Day: 30.0 Years Smoked: 23 Second Hand Smoke Exposure: Yes Substance Use Type: Crack/Cocaine, Heroin, IV Drugs and Opiates service: No Current occupational status: unemployed Sexual orientation: Straight/Heterosexual Meds Allergies Allergy/AdvReac Type Severity Reaction Status Date / Time No Known Allergies Allergy Verified 08/12/23 06:32 [No Known Allergies*] Active Medications: Current Medications Acetaminophen (Acetaminophen 325 Mg Tablet) 650 mg PO Q6H PRN PRN Reason: Fever, mild pain, headache Calcium Carbonate (Calcium Carbonate 750 Mg Tab.Chew) 750 mg PO Q6H PRN PRN Reason: Heartburn Enoxaparin Sodium (Enoxaparin Sodium 40 Mg/0.4 Ml Syringe) 40 mg SUBCUT Q24H JAIR Hydromorphone HCl (Hydromorphone Hcl 1 Mg/Ml Syringe) 1 mg IVPUSH Q4H PRN; Protocol PRN Reason: Pain, Severe (Pain Scale 7-10) Vancomycin HCl 1,000 mg/ (Sodium Chloride) 270 mls @ 270 mls/hr IV Q12H [facility] Magnesium Hydroxide (Milk Of Magnesia 30 Ml Oral.Susp) 30 ml PO DAILY PRN PRN Reason: Constipation Melatonin (Melatonin 3 Mg Tablet) 6 mg PO BEDTIME PRN PRN Reason: Insomnia Nicotine (Nicotine 14 Mg Patch.Td24) 14 mg TRANSDERMA DAILY JAIR Ondansetron HCl (Ondansetron Hcl 4 Mg/2 Ml Vial) 4 mg IVPUSH Q8H PRN PRN Reason: Nausea and Vomiting Oxycodone HCl (Oxycodone Hcl Immed Release 5 Mg Tablet) 5 mg PO Q4H PRN PRN Reason: Pain, Severe (Pain Scale 7-10) Polyethylene Glycol (Polyethylene Glycol 3350 17 Gm Powd.Pack) 17 gm PO DAILY PRN PRN Reason: Constipation Senna (Sennosides 8.6 Mg Tablet) 17.2 mg PO BEDTIME PRN PRN Reason: Constipation Sodium Chloride (0.9 % Sodium Chloride Flush 3 Ml Syringe) [facility] Medications ?Medication ?Instructions ?Recorded ?Confirmed ?Last Taken ?Type gabapentin 800 mg tablet 800 mg PO TID 08/09/23 08/09/23 Unknown History methadone 10 mg/mL oral 190 mg PO DAILY 08/09/23 08/09/23 08/06/23 09:24 History concentrate (Methadose) quetiapine 300 mg tablet 300 mg PO BEDTIME 08/09/23 08/09/23 Unknown History Physical Exam 2 Vital Signs and Narrative: Vital Signs: Last Vital Signs Temp 97.6 F 08/12/23 14:35 Pulse 63 08/12/23 14:35 Resp 16 08/12/23 14:35 BP 114/72 08/12/23 14:35 Pulse Ox 100 08/12/23 14:35 O2 Del Method Room Air 08/12/23 06:27 BMI result Body Mass Index 22.3 Appearing in no acute distress head is normocephalic atraumatic eyes pupils are PERRLA sclera is anicteric mouth throat mucous membranes are intact and moist neck is supple no lymphadenopathy, no JVD noted lung sounds are clear to auscultation heart regular rate rhythm, clear S1, S2 positive bowel sounds, abdomen is soft, nontender neuro patient is alert x3, no focal deficits callous to plantar aspect of both feet scabbed areas to legs from picking Results Imaging Radiologist's Impressions: Impressions Chest X-Ray 08/12/23 14:57 IMPRESSION: No evidence for acute process. Small linear atelectasis or scar projecting toward the left base, appearing stable. Assessment and Plan (1) MRSA (methicillin resistant staph aureus) culture positive: Status: Acute Plan 37-year-old woman admitted with MRSA bacteremia. Had labs drawn on 08/05/2023 that were positive and patient was called back to the ER. MRSA bacteremia 1/2 positive No fever or elevated white blood cell count ID consult Start vancomycin Echocardiogram to assess for endocarditis Will need PICC line and placement in [facility] or equivalent facility Repeat blood cultures pending Substance abuse Patient reports using 5 bundles of heroin a day, also uses cocaine and fentanyl Denied having any drugs on her person, was checked by security in the ER Addiction medicine consultation> discussed with Flower, can use Dilaudid and oxycodone as patient has a high tolerance On methadone 190 mg daily, will need verification Monitor closely for withdrawal symptoms Foul smelling vaginal discharge Patient to self obtain BV swab Mental health Currently homeless On Seroquel May consider psychiatric consultation if patient requests Normocytic anemia H&H above transfusion threshold Smoker Discussed importance of smoking cessation NRT ordered DVT prophylaxis with Lovenox Full code Medication reconciliation is pending Patient requiring at least 48 hours of inpatient admission for treatment of MRSA bacteremia requiring IV antibiotics, echocardiogram and specialty consultation. Due to patient's history of substance abuse she is at high risk for decompensation if bacteremia is not treated. Quality Stroke Does the patient have a stroke diagnosis?: No VTE Prior VTE?: No VTE Risk Level:: Medical - moderate - high VTE Device Contraindication: Treatment Not Indicated VTE Drug Contraindication: N/A - Med Ordered
[2023-08-12 17:28] LABS: MANUAL DIFF FLAG NO
[2023-08-12] MEDS: Nicotine 14 MG PATCH.TD24 TRANSDERMA (17:32)
[2023-08-12] MEDS: cefTRIAXone sodium 1 GM in 0.9 % Sodium Chloride 50 ML IV (17:32)
[2023-08-12] MEDS: ondansetron HCL 4 MG/2 ML VIAL IVPUSH (17:33)
[2023-08-12] MEDS: HYDROmorphone HCl 1 MG/ML SYRINGE IVPUSH (17:33)
[2023-08-12 17:34] LABS: Basophils Percent Auto 0.4 % (0-2); Eosinophils Absolute Auto 0.2 X10*3/uL (0.0-0.4); Eosinophils Percent Auto 3.7 % (0-4); Hematocrit 31.2 % (37.0-47.0); Hemoglobin 9.9 g/dl (12.0-16.0); Imm Gran Abs Auto 0.01 X10*3/uL (0.00-0.03); Imm Gran Pct Auto 0.2 % (0.0-0.4); Lymphocytes Absolute Auto 1.8 X10*3/uL (1.2-4.9); Lymphocytes Percent Auto 35.9 % (20-40); Mean Corpuscular HGB Conc 31.7 g/dl (31.0-35.0); Mean Corpuscular Hemoglobin 28.5 pg (27.0-33.0); Mean Corpuscular Volume 89.9 fL (80.0-98.0); Mean Platelet Volume 8.9 fL (9.4-12.3); Monocytes Absolute Auto 0.3 X10*3/uL (0.1-1.2); Monocytes Percent Auto 6.1 % (2-11); Neutrophils Absolute Auto 2.7 x10*3/uL (2.0-8.3); Neutrophils Percent Auto 53.7 % (45-73); Platelet Count 293 X10*3/uL (160-400); Red Blood Count 3.47 X10*6/uL (4.20-5.50); Red Cell Distribution Width 16.1 % (11.0-16.0); White Blood Count 5.1 X10*3/uL (4.8-10.8)
[2023-08-12 17:44] LABS: Lactic Acid 1.8 mmol/L (0.5-2.0)
[2023-08-12 17:49] LABS: Alanine Aminotransferase 17 U/L (0-31); Albumin Level 3.7 g/dL (3.5-5.0); Alkaline Phosphatase 84 U/L (39-117); Anion Gap 11 (12-20); Aspartate Amino Transferase 23 U/L (5-31); Bilirubin Direct < 0.2 mg/dL (0.0-0.5); Bilirubin Total 0.2 mg/dL (0.0-1.0); Blood Urea Nitrogen 18 mg/dL (9-16); Calcium 9.2 mg/dL (8.4-10.2); Carbon Dioxide 30 mmol/L (22-29); Chloride 102 mmol/L (96-108); Creatinine Clr Calc Pharmacy 80.8; Estimated Glomerular Filt Rate > 60; Glucose Random 124 mg/dL (60-115); Potassium 3.3 mmol/L (3.3-5.1); Sodium 140 mmol/L (135-145); Total Protein 7.1 g/dL (6.5-8.0)
[2023-08-12 17:51] LABS: INTERNATIONAL NORM RATIO 0.9 (0.9-1.1); Prothrombin Time 10.4 SEC (11.1-13.3)
[2023-08-12 17:53] LABS: Partial Thromboplastin Time 28.9 SEC (26.0-36.8)
[2023-08-12] MEDS: Doxycycline Hyclate 100 MG in 0.9 % Sodium Chloride 250 ML 166.67 MG IV (18:09)
[2023-08-12] MEDS: 0.9 % Sodium Chloride Flush 3 ML SYRINGE IVFLUSH ×2 (18:11→23:44)
--- NOTE | 2023-08-12 18:29 | PHA.MEDREC ---
Pharmacy Consult ? Medication Reconciliation Pharmacy has completed the medication reconciliation.
[2023-08-12] MEDS: metroNIDAZOLE/NS 500 MG/100 ML PIGGYBACK 100 MG IV (19:25)
[2023-08-12] MEDS: vancomycin HCL 1,500 MG in 0.9 % Sodium Chloride 500 ML 333.33 MG IV (20:23)
[2023-08-12] MEDS: Mineral Oil/Petrolatum,White 106 GM Tube 1 APPL TOPICAL (20:50)
[2023-08-12 22:39] LABS: Appearance Urine Clear; Color Urine Yellow; Glucose Urine UA Negative (Negative); Leukocyte Esterase Urine Negative (Negative); Nitrite Urine Negative (Negative); PH 6.5 (5.0-9.0); Specific Gravity - Urine >= 1.030 (1.005-1.025); Urine Blood Negative (Negative); Urine Ketones Trace mg/dL (Negative); Urine Protein Negative (Neg-Trace)
[2023-08-12] MEDS: diphenhydrAMINE HCL 25 MG CAPSULE 50 MG PO (22:50)
--- NOTE | 2023-08-13 | ECG_ITS ---
Test Reason : PROLONG QTC Blood Pressure : / mmHG Vent. Rate : 072 BPM Atrial Rate : 072 BPM P-R Int : 130 ms QRS Dur : 076 ms QT Int : 402 ms P-R-T Axes : 060 -18 021 degrees QTc Int : 440 ms Normal sinus rhythm Normal ECG When compared with ECG of 05-AUG-2023 16:38, QT has shortened Referred By: Lianet Harris Electronically Signed By:LEON FERNANDES MD
[2023-08-13 03:50] VITALS: BP 123/82; PULSE 80; RESP 16; TEMP 36.8; O2SAT 100
[2023-08-13] MEDS: oxyCODONE HCl Immed Release 5 MG TABLET PO ×3 (04:29→16:37)
[2023-08-13 05:09] LABS: MANUAL DIFF FLAG NO
[2023-08-13 05:11] LABS: Basophils Percent Auto 0.2 % (0-2); Eosinophils Absolute Auto 0.2 X10*3/uL (0.0-0.4); Eosinophils Percent Auto 3.1 % (0-4); Hemoglobin 9.5 g/dl (12.0-16.0); Imm Gran Abs Auto 0.02 X10*3/uL (0.00-0.03); Imm Gran Pct Auto 0.4 % (0.0-0.4); Lymphocytes Absolute Auto 1.8 X10*3/uL (1.2-4.9); Lymphocytes Percent Auto 34.8 % (20-40); Mean Corpuscular HGB Conc 30.6 g/dl (31.0-35.0); Mean Corpuscular Hemoglobin 27.9 pg (27.0-33.0); Mean Corpuscular Volume 90.9 fL (80.0-98.0); Mean Platelet Volume 9.8 fL (9.4-12.3); Monocytes Absolute Auto 0.3 X10*3/uL (0.1-1.2); Monocytes Percent Auto 6.2 % (2-11); Neutrophils Absolute Auto 2.8 x10*3/uL (2.0-8.3); Neutrophils Percent Auto 55.3 % (45-73); Platelet Count 267 X10*3/uL (160-400); Red Blood Count 3.41 X10*6/uL (4.20-5.50); Red Cell Distribution Width 16.2 % (11.0-16.0); White Blood Count 5.1 X10*3/uL (4.8-10.8)
[2023-08-13 05:28] LABS: Anion Gap 11 (12-20); Blood Urea Nitrogen 17 mg/dL (9-16); Calcium 8.5 mg/dL (8.4-10.2); Carbon Dioxide 24 mmol/L (22-29); Chloride 107 mmol/L (96-108); Creatinine Clr Calc Pharmacy 93.2; Estimated Glomerular Filt Rate > 60; Glucose Random 91 mg/dL (60-115); Potassium 3.8 mmol/L (3.3-5.1); Sodium 138 mmol/L (135-145)
--- NOTE | 2023-08-13 06:05 | MHC.EDTECH ---
ALL OF PT BELONGINGS IN DECON. VERIFIED WITH SECURITY.
[2023-08-13] MEDS: HYDROmorphone HCl 1 MG/ML SYRINGE IVPUSH ×3 (07:06→20:16)
--- NOTE | 2023-08-13 07:06 | PC.NURSE ---
Pt yelling out that she is in pain and detoxing. Medicated per MAR with dilaudid. Handoff report to Rayna DYER who will text day time hospitalist for further medication.
--- NOTE | 2023-08-13 08:00 | PC.NURSE ---
pt requesting methadone dose/prn ativan. methadone verification form filled out/faxed to pharmacy/placed in pt's chart. BHARAT Harris notified/aware. plan of care ongoing.
--- NOTE | 2023-08-13 08:08 | HE.PHANOTE ---
RE: METHADONE DOSING Last methadone dose of 190 mg was given on 08/11/23 @0923 per Jail[facility] at [facility].
[2023-08-13] MEDS: Nicotine 14 MG PATCH.TD24 TRANSDERMA (08:28)
[2023-08-13] MEDS: vancomycin HCL 1,000 MG in 0.9 % Sodium Chloride 250 ML 270 MG IV ×2 (09:19→21:53)
[2023-08-13] MEDS: Gabapentin 400 MG CAPSULE 800 MG PO ×3 (09:19→20:07)
[2023-08-13] MEDS: LORazepam 2 MG/ML VIAL IVPUSH (09:19)
--- NOTE | 2023-08-13 09:20 | PC.NURSE ---
pt came out into the hallway threatening to rip out her IV/stating that she wants to be discharged and obtain her belongings from [employer]. pt clearly tearful/screaming throughout ED stating I need drugs I'm detoxing! after multiple attempts and educating pt on importance of staying - pt then back into room. one time dose of ativan ordered by ED provider/administered. effectiveness pending. repeat EKG performed by tech/sent to BHARAT Harris. pt still requesting methadone. will administer once able. plan of care ongoing.
[2023-08-13 09:30] VITALS: BP 120/88; PULSE 78; RESP 11; TEMP 37.2; O2SAT 100
[2023-08-13] MEDS: methADONE HCl 20 MG/2 ML ORAL.CONC 190 MG PO (09:49)
--- NOTE | 2023-08-13 09:54 | PC.NURSE ---
methadone administered per provider order. pt speaking w/ admitting PA at this time in regards to plan of care.
--- NOTE | 2023-08-13 10:38 | PC.NURSE ---
delay in medication administration/vancomycin paused at this time d/t IV access not working properly. multiple interventions performed to promote patent access. no success at this time. new IV needs to be placed but pt will not allow anyone to obtain access besides previous RN who placed original IV. plan of care ongoing.
--- NOTE | 2023-08-13 12:01 | PC.NURSE ---
IV attempted/unsuccessful by RN. will attempt to obtain access via ultrasound guidance. BHARAT Harris notified/aware of delay in medication. plan of care ongoing.
--- NOTE | 2023-08-13 12:18 | PC.NURSE ---
pt medicated w/ prn oxycodone d/t no IV access. effectiveness pending.
--- NOTE | 2023-08-13 13:26 | HO.PM.IMPN ---
Subjective Subjective Date of Service: 08/13/23 Interval History: Seen and examined this morning Follow-up for MRSA bacteremia Denies fever, chills Review of Systems Review of Systems: Yes all other systems are reviewed and are negative Constitutional Constitutional: Denies chills and Denies fever(s) Cardiovascular Cardiovascular: Denies chest pain, Denies palpitations and Denies dyspnea Respiratory Respiratory: Denies cough and Denies dyspnea Endocrine Endocrine: Denies palpitations Physical Exam Vital Signs: Vital Signs: Last Vital Signs Temp 99.0 F 08/13/23 09:30 Pulse 78 08/13/23 09:30 Resp 11 L 08/13/23 09:30 BP 120/88 08/13/23 09:30 Pulse Ox 100 08/13/23 09:30 O2 Del Method Room Air 08/13/23 09:30 BMI result Body Mass Index 22.3 Const: General: cooperative, comfortable, no acute distress, alert and awake Nutritional Appearance: average body habitus Orientation/consciousness: patient oriented x3 Resp: Effort & Inspection: normal respiratory effort, able to speak in complete sentences, no respiratory distress and no use of accessory muscles Cardio: Rate: regular rate GI: Inspection: No distended Palpation (GI): Soft to palpation Skin: Other: Callus, plantar aspect feet, unchanged from picture on admission; numerous areas of scabbing on extremities, no surrounding erythema no drainage Neuro: General: patient oriented x3, moves all extremities and CN's II-XI intact bilaterally Objective Data Active Medications Acetaminophen (Acetaminophen 325 Mg Tablet) 650 mg PO Q6H PRN PRN Reason: Fever, mild pain, headache Calcium Carbonate (Calcium Carbonate 750 Mg Tab.Chew) 750 mg PO Q6H PRN PRN Reason: Heartburn Enoxaparin Sodium (Enoxaparin Sodium 40 Mg/0.4 Ml Syringe) 40 mg SUBCUT Q24H [facility] Last Admin: 08/12/23 19:28 Dose: Not Given Documented By: RUSLAN Non-Admin Reason: Patient Refused Gabapentin (Gabapentin 400 Mg Capsule) 800 mg PO TID [facility] Last Admin: 08/13/23 09:19 Dose: 800 mg Documented By: ANGIE Hydromorphone HCl (Hydromorphone Hcl 1 Mg/Ml Syringe) 1 mg IVPUSH Q4H PRN; Protocol PRN Reason: Pain, Severe (Pain Scale 7-10) Last Admin: 08/13/23 13:26 Dose: 1 mg Documented By: ANGIE Vancomycin HCl 1,000 mg/ (Sodium Chloride) 270 mls @ 270 mls/hr IV Q12H [facility] Last Admin: 08/13/23 09:19 Dose: 270 mls/hr Documented By: ANGIE Magnesium Hydroxide (Milk Of Magnesia 30 Ml Oral.Susp) 30 ml PO DAILY PRN PRN Reason: Constipation Melatonin (Melatonin 3 Mg Tablet) 6 mg PO BEDTIME PRN PRN Reason: Insomnia Methadone HCl (Methadone Hcl 20 Mg/2 Ml Oral.Conc) 190 mg PO DAILY [facility] Last Admin: 08/13/23 09:49 Dose: 190 mg Documented By: ANGIE Multi-Ingred Cream/Lotion/Oil/Oint (Mineral Oil/Petrolatum,White 106 Gm Tube) 1 appl TOPICAL BID [facility]; Protocol Last Admin: 08/13/23 08:31 Dose: Not Given Documented By: ANGIE Non-Admin Reason: Patient Refused Nicotine (Nicotine 14 Mg Patch.Td24) 14 mg TRANSDERMA DAILY [facility] Last Admin: 08/13/23 08:28 Dose: 14 mg Documented By: ANGIE Ondansetron HCl (Ondansetron Hcl 4 Mg/2 Ml Vial) 4 mg IVPUSH Q8H PRN PRN Reason: Nausea and Vomiting Last Admin: 08/12/23 17:33 Dose: 4 mg Documented By: STEVE Oxycodone HCl (Oxycodone Hcl Immed Release 5 Mg Tablet) 5 mg PO Q4H PRN PRN Reason: Pain, Severe (Pain Scale 7-10) Last Admin: 08/13/23 12:09 Dose: 5 mg Documented By: AGNIE Pharmacy Consult (Consult Rx Vancomycin Dosing) 1 each MISCELLANE DAILY PRN PRN Reason: Consult order Polyethylene Glycol (Polyethylene Glycol 3350 17 Gm Powd.Pack) 17 gm PO DAILY PRN PRN Reason: Constipation Senna (Sennosides 8.6 Mg Tablet) 17.2 mg PO BEDTIME PRN PRN Reason: Constipation Sodium Chloride (0.9 % Sodium Chloride Flush 3 Ml Syringe) 3 ml IVFLUSH QSHIFT [facility] Last Admin: 08/13/23 08:26 Dose: Not Given Documented By: ANGIE Non-Admin Reason: Patient Asleep Labs 08/13/23 03:59 08/13/23 04:01 Labs: Laboratory Results - last 24 hr 08/12/23 08/12/23 08/12/23 17:20 17:21 22:28 MCV 89.9 MCH 28.5 MCHC 31.7 RDW 16.1 H Plt Count 293 MPV 8.9 L Immature Gran % (Auto) 0.2 Neut % (Auto) 53.7 Lymph % (Auto) 35.9 [place] % (Auto) 6.1 Eos % (Auto) 3.7 Baso % (Auto) 0.4 Lymph # (Auto) 1.8 [place] # (Auto) 0.3 Eos # (Auto) 0.2 Baso # (Auto) 0.0 Abs Immat Gran (auto) 0.01 Absolute Neuts (auto) 2.7 Absolute Nucleated RBC 0.000 Nucleated RBC % (auto) 0.0 PT 10.4 L INR 0.9 APTT 28.9 Anion Gap 11 L Estim Creat Clear Calc 80.8 Estimated GFR > 60 Random Glucose 124 H Lactic Acid 1.8 Calcium 9.2 D Total Bilirubin 0.2 Direct Bilirubin < 0.2 AST 23 ALT 17 Alkaline Phosphatase 84 Total Protein 7.1 Albumin 3.7 Urine Color Yellow Urine Appearance Clear Urine pH 6.5 Ur Specific [place] >= 1.030 H Urine Protein Negative Urine Glucose (UA) Negative Urine Ketones Trace Urine Blood Negative Urine Nitrite Negative Ur Leukocyte Esterase Negative 08/13/23 08/13/23 03:59 04:01 MCV 90.9 MCH 27.9 MCHC 30.6 L RDW 16.2 H Plt Count 267 MPV 9.8 Immature Gran % (Auto) 0.4 Neut % (Auto) 55.3 Lymph % (Auto) 34.8 [place] % (Auto) 6.2 Eos % (Auto) 3.1 Baso % (Auto) 0.2 Lymph # (Auto) 1.8 [place] # (Auto) 0.3 Eos # (Auto) 0.2 Baso # (Auto) 0.0 Abs Immat Gran (auto) 0.02 Absolute Neuts (auto) 2.8 Absolute Nucleated RBC 0.000 Nucleated RBC % (auto) 0.0 PT INR APTT Anion Gap 11 L Estim Creat Clear Calc 93.2 Estimated GFR > 60 Random Glucose 91 Lactic Acid Calcium 8.5 D Total Bilirubin Direct Bilirubin AST ALT Alkaline Phosphatase Total Protein Albumin Urine Color Urine Appearance Urine pH Ur Specific [place] Urine Protein Urine Glucose (UA) Urine Ketones Urine Blood Urine Nitrite Ur Leukocyte Esterase Assessment and Plan (1) MRSA bacteremia: Status: Inactive Plan 37-year-old woman admitted with MRSA bacteremia. Had labs drawn on 08/05/2023 that were positive and patient was called back to the ER. MRSA bacteremia 1/2 positive 08/04, repeat negative No fever or elevated white blood cell count ID consult pending Start vancomycin Echocardiogram to assess for endocarditis- pending possible need for PICC line and placement in [facility] or equivalent facility Substance abuse Patient reports using 5 bundles of heroin a day, also uses cocaine and fentanyl Addiction medicine consultation> discussed with Flower, can use Dilaudid and oxycodone as patient has a high tolerance. wean as able Home dose verified and continued- methadone 190 mg daily Foul smelling vaginal discharge Patient to self obtain BV swab Mental health Currently homeless On Seroquel Normocytic anemia H&H above transfusion threshold Smoker Discussed importance of smoking cessation NRT ordered DVT prophylaxis with Lovenox Full code Requires ongoing inpatient hospitalization for treatment of MRSA bacteremia requiring IV antibiotics, echocardiogram and specialty consultation. Due to patient's history of substance abuse she is at high risk for decompensation if bacteremia is not treated. Quality Stroke Does the patient have a stroke diagnosis?: No VTE Prior VTE?: No VTE Risk Level:: Medical - moderate - high VTE Device Contraindication: Treatment Not Indicated VTE Drug Contraindication: N/A - Med Ordered
--- NOTE | 2023-08-13 13:29 | PC.NURSE ---
pt verbalizing pain level is a 10/10 despite medication administration. new 20g long IV placed in the right upper forearm via ultrasound guidance. patent/intact. abx now administered per provider order. pt medicated w/ PRN dilaudid - effectiveness pending.
--- NOTE | 2023-08-13 13:58 | MHC.EDTECH ---
Patient states she will have the swabs done a little bit later, she is tired and wants to sleep.
[2023-08-13 14:41] VITALS: BP 144/82; PULSE 69; RESP 12; TEMP 36.8; O2SAT 98
--- NOTE | 2023-08-13 14:49 | MHC.RECOVRN ---
Attempted to meet with pt in ED17 after consult placed to Addiction Medicine for substance use. Pt had presented to the ED after being called back for positive blood cultures. Upon evaluation, patient admitted for positive MRSA cultures. Pt is currently receiving 190 mg methadone through [facility] [employer] . When t/w attempted to wake pt, pt winced and said it's too early and quickly fell back to sleep. Flower Donohue APRN, aware. Will continue to follow.
[2023-08-13] MEDS: 0.9 % Sodium Chloride Flush 3 ML SYRINGE IVFLUSH (15:40)
[2023-08-13 17:10] VITALS: BP 122/78; PULSE 74; RESP 16; TEMP 36.2; O2SAT 97
--- NOTE | 2023-08-13 17:19 | PC.NURSE ---
Patient anxious,moving around in bed ,can not sit still,requesting Ativan to help with anxiety,requestingnicotine gum in addition to nicotine patch,BHARAT Martini notified
[2023-08-13] MEDS: Nicotine Polacrilex 2 MG GUM BUCCAL (17:44)
--- NOTE | 2023-08-13 18:23 | MHC.RECOVSUP ---
? Reason for consult Recovery Support o Current location: 371-1 o Identified substance use concern: Heroin - Support ? Intervention: o Community resources provided o Harm reduction discussion ? Plan: o Patient to follow up with H after discharge ? Additional information: Met with Patient and we talked about recovery and harm reduction. We talked about different pathways to recovery and other resources.. patient stated that she was on MAT.
[2023-08-13 19:43] VITALS: BP 118/71; PULSE 77; RESP 18; TEMP 36.4; O2SAT 97
[2023-08-13] MEDS: hydrOXYzine HCL 25 MG TABLET PO (20:07)
[2023-08-13] MEDS: Docusate Sodium 100 MG CAPSULE PO (20:07)
[2023-08-13] MEDS: QUEtiapine Fumarate 300 MG TABLET PO (20:07)
[2023-08-13] MEDS: Mineral Oil/Petrolatum,White 106 GM Tube 1 APPL TOPICAL (20:08)
[2023-08-13 20:40] LABS: Vancomycin Random 6.5 mcg/mL (15-20)
--- NOTE | 2023-08-13 20:57 | HE.PHANOTE ---
RE: vanco Level on 08/12 came back at 6.5mg/L; increased frequency to 1000mg Q8H with predicted trough of 14.3mg/L, AUC of 534mg/L. Next level to be drawn 08/13 @1999
[2023-08-13] MEDS: Melatonin 3 MG TABLET 6 MG PO (21:52)
--- NOTE | 2023-08-13 22:37 | W.PM.IDCN ---
History of Present Illness Data of Consult Service Date: 08/13/23 Requesting physician: Cesar Weathers Primary Care Provider: Unknown Physician HPI Reason for consult: MRSA bacteremia She presents after being called back due to positive blood cultures. She has had bacteremia before she says. She injects into feet. SHe hs positive Hepatitis C antibodies and HIV negative. Review of Systems Review of Systems: Yes all other systems are reviewed and are negative PMFSH Past Medical History Medical History History of drug dependence/abuse Atypical bipolar disorder Opiate withdrawal Acute anxiety Drug-induced psychotic disorder Depression PTSD (post-traumatic stress disorder) Anxiety Depression Family History Family history: reviewed and not pertinent Social History Social History Household Members: Other Household Members Other:: grandmother Housing: Apartment Do you presently have visiting nurse or other home services: No 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: current 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 frequency: a few times a month Alcohol type: beer, wine and hard liquor 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 Patient Tobacco Use Status: Current everyday Tobacco user Tobacco use type: Cigarette Cigarette Packs Per Day: 2.5 Cigarettes Per Day: 50.0 Years Smoked: 23 Second Hand Smoke Exposure: Yes Substance Use Type: Crack/Cocaine, Heroin and IV Drugs service: No Current occupational status: unemployed Sexual orientation: Straight/Heterosexual Meds Allergies Allergy/AdvReac Type Severity Reaction Status Date / Time No Known Allergies Allergy Verified 08/12/23 06:32 [No Known Allergies*] Active Medications: Current Medications Acetaminophen (Acetaminophen 325 Mg Tablet) 650 mg PO Q6H PRN PRN Reason: Fever, mild pain, headache Calcium Carbonate (Calcium Carbonate 750 Mg Tab.Chew) 750 mg PO Q6H PRN PRN Reason: Heartburn Docusate Sodium (Docusate Sodium 100 Mg Capsule) 100 mg PO BEDTIME [facility] Last Admin: 08/13/23 20:07 Dose: 100 mg Enoxaparin Sodium (Enoxaparin Sodium 40 Mg/0.4 Ml Syringe) 40 mg SUBCUT Q24H JAIR Last Admin: 08/13/23 15:39 Dose: Not Given Gabapentin (Gabapentin 400 Mg Capsule) 800 mg PO TID [facility] Last Admin: 08/13/23 20:07 Dose: 800 mg Hydromorphone HCl (Hydromorphone Hcl 1 Mg/Ml Syringe) 1 mg IVPUSH Q4H PRN; Protocol PRN Reason: Pain, Severe (Pain Scale 7-10) Last Admin: 08/13/23 20:16 Dose: 1 mg Hydroxyzine HCl (Hydroxyzine Hcl 25 Mg Tablet) 25 mg PO BID PRN PRN Reason: Anxiety Last Admin: 08/13/23 20:07 Dose: 25 mg Vancomycin HCl 1,000 mg/ (Sodium Chloride) 270 mls @ 270 mls/hr IV Q8H JAIR Last Admin: 08/13/23 21:53 Dose: 270 mls/hr Magnesium Hydroxide (Milk Of Magnesia 30 Ml Oral.Susp) 30 ml PO DAILY PRN PRN Reason: Constipation Melatonin (Melatonin 3 Mg Tablet) 6 mg PO BEDTIME PRN PRN Reason: Insomnia Last Admin: 08/13/23 21:52 Dose: 6 mg Methadone HCl (Methadone Hcl 20 Mg/2 Ml Oral.Conc) 190 mg PO DAILY [facility] Last Admin: 08/13/23 09:49 Dose: 190 mg Multi-Ingred Cream/Lotion/Oil/Oint (Mineral Oil/Petrolatum,White 106 Gm Tube) 1 appl TOPICAL BID [facility]; Protocol Last Admin: 08/13/23 20:08 Dose: 1 appl Nicotine (Nicotine 14 Mg Patch.Td24) 14 mg TRANSDERMA DAILY [facility] Last Admin: 08/13/23 08:28 Dose: 14 mg Nicotine Polacrilex (Nicotine Polacrilex 2 Mg Gum) 2 mg BUCCAL Q2H PRN PRN Reason: Nicotine Cravings Last Admin: 08/13/23 17:44 Dose: 2 mg Oxycodone HCl (Oxycodone Hcl Immed Release 5 Mg Tablet) 5 mg PO Q4H PRN PRN Reason: Pain, Severe (Pain Scale 7-10) Last Admin: 08/13/23 16:37 Dose: 5 mg Pharmacy Consult (Consult Rx Vancomycin Dosing) 1 each MISCELLANE DAILY PRN PRN Reason: Consult order Polyethylene Glycol (Polyethylene Glycol 3350 17 Gm Powd.Pack) 17 gm PO DAILY PRN PRN Reason: Constipation Quetiapine Fumarate (Quetiapine Fumarate 25 Mg Tablet) 25 mg PO BID [facility] Quetiapine Fumarate (Quetiapine Fumarate 300 Mg Tablet) 300 mg PO BEDTIME [facility] Last Admin: 08/13/23 20:07 Dose: 300 mg Senna (Sennosides 8.6 Mg Tablet) 17.2 mg PO BEDTIME PRN PRN Reason: Constipation Sodium Chloride (0.9 % Sodium Chloride Flush 3 Ml Syringe) 3 ml IVFLUSH QSHIFT [facility] Last Admin: 08/13/23 15:40 Dose: 3 ml Home Medications ?Medication ?Instructions ?Recorded ?Confirmed ?Last Taken ?Type gabapentin 800 mg tablet 800 mg PO TID 08/09/23 08/12/23 Unknown History methadone 10 mg/mL oral 190 mg PO DAILY 08/09/23 08/13/23 08/11/23 09:25 History concentrate (Methadose) quetiapine 300 mg tablet 300 mg PO BEDTIME 08/09/23 08/12/23 Unknown History hydroxyzine HCl 25 mg tablet 25 mg PO BID PRN Anxiety 08/12/23 08/12/23 Unknown History nicotine (polacrilex) 4 mg gum 4 mg PO TID PRN Nicotine Cravings 08/12/23 08/12/23 Unknown History nicotine 21 mg/24 hr daily 1 patch topical DAILY 08/12/23 08/12/23 Unknown History transdermal patch quetiapine 50 mg tablet,extended 50 mg PO DAILY 08/12/23 08/12/23 Unknown History release 24 hr Physical Exam Vital Signs: Vital Signs: Last Vital Signs Temp 97.6 F 08/13/23 19:43 Pulse 77 08/13/23 19:43 Resp 18 08/13/23 19:43 BP 118/71 08/13/23 19:43 Pulse Ox 97 08/13/23 19:43 O2 Del Method Room Air 08/13/23 19:43 BMI result Body Mass Index 22.3 Const: General: cooperative HEENT: Head: Yes normal to inspection Face and sinus: Yes normal facial exam Mouth: Normal oral and palatal mucosa present Teeth and gingiva: dentition normal Eyes: General: appearance normal, both eyes and all related structures Pupils: Equal, round and reactive pupils present Resp: Effort & Inspection: normal respiratory effort Cardio: Rate: regular rate Rhythm: regular rhythm GI: Palpation (GI): Soft to palpation and nontender : General: Yes no CVA tenderness Back/Spine/Pelvis: Back: no CVA tenderness Skin: General skin exam: no rashes or lesions noted Neuro: General: moves all extremities Cranial nerves: Yes Equal, round and reactive pupils present Extrem: General: Yes normal to inspection Psych: Appearance: grossly normal Results Labs 08/13/23 03:59 08/13/23 04:01 Labs: Short CBC 08/13/23 Range/Units 03:59 WBC 5.1 (4.8-10.8) X10*3/uL Hgb 9.5 L (12.0-16.0) g/dl Hct 31.0 L (37.0-47.0) % Plt Count 267 (160-400) X10*3/uL BMP 08/13/23 04:01 Sodium 138 Potassium 3.8 Chloride 107 Carbon Dioxide 24 BUN 17 H Creatinine 0.72 Calcium 8.5 D Urine 08/12/23 Range/Units 22:28 Urine Color Yellow Urine Appearance Clear Urine pH 6.5 (5.0-9.0) Ur Specific [place] >= 1.030 H (1.005-1.025) Urine Protein Negative (Neg-Trace) mg/dL Urine Glucose (UA) Negative (Negative) mg/dL Microbiology Microbiology Results: Microbiology 08/12/23 17:21 Blood - Venous Blood Culture - Preliminary No growth after 24 hours. 08/12/23 15:50 Blood - Venous Blood Culture - Preliminary No growth after 24 hours. Assessment and Plan (1) MRSA bacteremia: Status: Inactive Plan She has likely injection sites in feet as source. She is homeless. Would continue Vancomycin Would check echo. Addiction Medicine counseling and case management. 4 weeks IV antibiotics PICC line [place].
[2023-08-13 23:38] VITALS: BP 139/73; PULSE 108; RESP 16; TEMP 36.1; O2SAT 97
--- NOTE | 2023-08-14 00:22 | PC.NURSE ---
Patient anxious and restless this evening,IV positional,RN inserted IV in Left arm since patient unable to stay in one position to infuse antibiotic,at times patient verbally abusive towards RN use MELECIO sequeira stayed in room while RN was inserting IV.Patient requesting snacks and sandwiches all evening,yells out.
--- NOTE | 2023-08-14 07:00 | CA_ITS ---
Transthoracic Echocardiogram Patient (Last, First, Middle): Sangeeta Hollingsworth L Gender: Female Date of : 1985 Age: 37 Procedure Date: 08/14/2023 Procedure Type: Transthoracic Echocardiogram Location: S3E Height: 162.56 cm Weight: 58.97 kg BSA: 1.63 m2 Heart Rate: bpm BP: 144 / 82 mmHg Coach Professional Athletes: Referring MD: Lianet NICHOLSON Electrician Third: Pedro Begum MD Symptoms: staph bacteremia, eval for endocarditis Study Quality: Good ECG Rhythm: Sinus Conclusions: - Normal study with no obvious vegetations. Findings Left Ventricle Normal left ventricular size, thickness, and systolic function. The visually estimated ejection fraction is between 60-65%. Diastolic function is normal for age. Right Ventricle Normal right ventricular cavity size and systolic function. Atria Both atria are normal in size. There is no evidence of interatrial shunt. Aortic Valve Normal aortic valve structure and function. There is no aortic valve stenosis. There is no aortic valve regurgitation. Mitral Valve Normal mitral valve structure and function. There is trace mitral valve regurgitation. There is no mitral valve stenosis. Pulmonic Valve The pulmonic valve is likely normal. There is trace pulmonic valve regurgitation. Tricuspid Valve Normal tricuspid valve structure. There is trace tricuspid valve regurgitation. The right ventricular systolic pressure is normal. The right ventricular systolic pressure is 30 mmHg. Normal right atrial pressure. There is no evidence of pulmonary hypertension. Great Vessels The pulmonary artery was not well visualized. There is no dilatation of the ascending aorta measuring 3.30 cm. Venous The inferior vena cava is normal in size and collapses greater than 50% with inspiration. Pericardium/Pleural There is no evidence of pericardial effusion. Prior Study Comparison No prior study available for comparison. Measurements 2D Linear Measurements IVSd: 0.85 0.6-0.9/0.6-1.0 cm LVIDd: 4.93 3.9-5.3/4.2-5.9 cm LVIDd Index: 3.02 2.4-3.2/2.2-3.1 cm/m2 LVIDs: 3.23 2.0-3.6 cm LVPWd: 0.89 0.7-1.1 cm Ao Root: 3.30 2.1-3.5 cm LA Diam: 3.60 2.7-3.8/3.0-4.0 cm LAIDs Index: 2.21 1.5-2.3 cm/m2 LV Mass: 184.41 67-162/88-224 g LV Mass Index: 113.14 43-95/49-115 g/m2 LVOT Diam: 2.10 3.0+(-)1.3 cm Mitral Valve MV Pk E: 0.93 MV PK A: 0.72 MV Decel Time: 210.00 E/A: 1.30 E'Lateral: 16.00 E'Medial: 9.57 E/E' Med: 9.70 E/E' Lat: 5.80 PHT: 61.00 MVA PHT: 3.61 Decel Baldwin: 4.43 Aortic Valve AoV Pk Branden: 1.45 AoV Pk Grad: 8.00 LVOT LVOT Pk Branden: 0.93 LVOT Pk Grad: 3.00 LVOT Diam: 2.10 LVOT Area: 3.46 Diastolic Function MV Pk E: 0.93 MV Pk A: 0.72 E/A: 1.30 E'Medial: 9.57 E/E' Med: 9.70 E' Laterial: 16.00 E/E' Lat: 5.80 Tricuspid Valve TR Pk Branden: 2.60 TR Pk Grad: 27.00 RA Press: 3.00 RVSP: 30.00 Great Vessels Aorta Ao Root-2D: 3.30 2.0-3.7 cm Ao Asc: 3.30 2.1-3.4 cm Pulmonary Valve PV Pk Branden: 1.05 Peak PV Grad: 4.00 Updated in Other Vendor System with Status of Final Pedro Begum MD electronically signed on 08/14/2023 4:02:37 PM with status of Final
[2023-08-14] MEDS: vancomycin HCL 1,000 MG in 0.9 % Sodium Chloride 250 ML 270 MG IV ×3 (07:10→22:48)
[2023-08-14] MEDS: 0.9 % Sodium Chloride Flush 3 ML SYRINGE IVFLUSH ×2 (07:11→22:48)
[2023-08-14] MEDS: Gabapentin 400 MG CAPSULE 800 MG PO ×3 (07:35→20:52)
[2023-08-14] MEDS: hydrOXYzine HCL 25 MG TABLET PO ×2 (07:35→20:53)
[2023-08-14] MEDS: QUEtiapine Fumarate 25 MG TABLET PO ×2 (07:35→20:53)
[2023-08-14] MEDS: HYDROmorphone HCl 1 MG/ML SYRINGE IVPUSH ×3 (07:36→19:31)
[2023-08-14] MEDS: Nicotine 14 MG PATCH.TD24 TRANSDERMA (07:42)
[2023-08-14] MEDS: methADONE HCl 20 MG/2 ML ORAL.CONC 190 MG PO (07:43)
[2023-08-14 07:57] VITALS: BP 122/87; PULSE 68; RESP 18; TEMP 36.4; O2SAT 97
[2023-08-14] MEDS: Nicotine Polacrilex 2 MG GUM BUCCAL ×2 (08:26→19:36)
--- NOTE | 2023-08-14 09:12 | MHC.CM.PN ---
Addendum entered by Ny Thomson 08/14/23 13:47: The facility will accept the patient pending guest dosing. Guest dosing can not be set up until Thursday; because [facility] does not set up guest dosing on Fridays. Original Note: Patient called to [facility] R/T + cultures: DX Bacteremia. HX IVDA on MAT. Her community dispensary, [facility]. She is independent. She lives with her grandmother. A HCP has been document placed on chart. Copies have been given to the pt. DP Likely to [facility] for LT IV ABX. She will transport via BLS. A referral has been sent to the facility.
[2023-08-14] MEDS: Mineral Oil/Petrolatum,White 106 GM Tube 1 APPL TOPICAL ×2 (12:19→20:54)
[2023-08-14 13:10] LABS: Creatinine Clr Calc Pharmacy 81.9; Estimated Glomerular Filt Rate > 60
[2023-08-14 15:22] VITALS: BP 140/89; PULSE 73; RESP 12; TEMP 36.3; O2SAT 99
--- NOTE | 2023-08-14 15:26 | PC.NURSE ---
pt anxious, wants to leave to use street drugs, asking for Ativan, PA notified, will order Ativan for patient, patient encouraged not to leave AMA.
[2023-08-14] MEDS: oxyCODONE HCl Immed Release 5 MG TABLET PO (15:33)
[2023-08-14] MEDS: LORazepam 0.5 MG TABLET PO (15:33)
--- NOTE | 2023-08-14 16:34 | P.PNIM_ITS ---
Subjective Subjective Date of Service: 08/14/23 Interval History: Seen and examined this morning Follow-up for MRSA bacteremia No overnight events Complaining of generalized body pain, foot pain. No fever Review of Systems Review of Systems: Yes all other systems are reviewed and are negative Constitutional Constitutional: Denies fever(s) Physical Exam 2 Vital Signs: Vital Signs: Last Vital Signs Temp 97.3 F 08/14/23 15:22 Pulse 73 08/14/23 15:22 Resp 12 08/14/23 15:22 BP 140/89 H 08/14/23 15:22 Pulse Ox 99 08/14/23 15:22 O2 Del Method Room Air 08/14/23 15:22 BMI result Body Mass Index 22.3 Const: General: cooperative, comfortable, no acute distress, alert and awake Nutritional Appearance: average body habitus Orientation/consciousness: p atient oriented x3 Resp: Effort & Inspection: normal respiratory effort, able to speak in complete sentences, no respiratory distress and no use of accessory muscles Cardio: Rate: regular rate GI: Inspection: No distended Palpation (GI): Soft to palpation Skin: Other: Callus, plantar aspect feet, unchanged from picture on admission; numerous areas of scabbing on extremities, no surrounding erythema no drainage Neuro: General: patient oriented x3, moves all extremities and CN's II-XI intact bilaterally Objective Data Active Medications Acetaminophen (Acetaminophen 325 Mg Tablet) 650 mg PO Q6H PRN PRN Reason: Fever, mild pain, headache Calcium Carbonate (Calcium Carbonate 750 Mg Tab.Chew) 750 mg PO Q6H PRN PRN Reason: Heartburn Docusate Sodium (Docusate Sodium 100 Mg Capsule) 100 mg PO BEDTIME [facility] Last Admin: 08/13/23 20:07 Dose: 100 mg Documented By: MAG Enoxaparin Sodium (Enoxaparin Sodium 40 Mg/0.4 Ml Syringe) 40 mg SUBCUT Q24H [facility] Last Admin: 08/14/23 15:31 Dose: Not Given Documented By: DOROTHY Non-Admin Reason: Patient Refused Gabapentin (Gabapentin 400 Mg Capsule) 800 mg PO TID [facility] Last Admin: 08/14/23 14:43 Dose: 800 mg Documented By: BOB Hydromorphone HCl (Hydromorphone Hcl 1 Mg/Ml Syringe) 1 mg IVPUSH Q4H PRN; Protocol PRN Reason: Pain, Severe (Pain Scale 7-10) Last Admin: 08/14/23 12:15 Dose: 1 mg Documented By: BOB Hydroxyzine HCl (Hydroxyzine Hcl 25 Mg Tablet) 25 mg PO BID PRN PRN Reason: Anxiety Last Admin: 08/14/23 07:35 Dose: 25 mg Documented By: BOB Vancomycin HCl 1,000 mg/ (Sodium Chloride) 270 mls @ 270 mls/hr IV Q8H [facility] Last Infusion: 08/14/23 15:56 Dose: Infused Documented By: DOROTHY Lorazepam (Lorazepam 0.5 Mg Tablet) 0.5 mg PO Q8H PRN PRN Reason: axiety Last Admin: 08/14/23 15:33 Dose: 0.5 mg Documented By: DOROTHY Magnesium Hydroxide (Milk Of Magnesia 30 Ml Oral.Susp) 30 ml PO DAILY PRN PRN Reason: Constipation Melatonin (Melatonin 3 Mg Tablet) 6 mg PO BEDTIME PRN PRN Reason: Insomnia Last Admin: 08/13/23 21:52 Dose: 6 mg Documented By: MAG Methadone HCl (Methadone Hcl 20 Mg/2 Ml Oral.Conc) 190 mg PO DAILY [facility] Last Admin: 08/14/23 07:43 Dose: 190 mg Documented By: BOB Multi-Ingred Cream/Lotion/Oil/Oint (Mineral Oil/Petrolatum,White 106 Gm Tube) 1 appl TOPICAL BID [facility]; Protocol Last Admin: 08/14/23 12:19 Dose: 1 appl Documented By: BOB Nicotine (Nicotine 14 Mg Patch.Td24) 14 mg TRANSDERMA DAILY [facility] Last Admin: 08/14/23 07:42 Dose: 14 mg Documented By: BOB Nicotine Polacrilex (Nicotine Polacrilex 2 Mg Gum) 2 mg BUCCAL Q2H PRN PRN Reason: Nicotine Cravings Last Admin: 08/14/23 08:26 Dose: 2 mg Documented By: BOB Oxycodone HCl (Oxycodone Hcl Immed Release 5 Mg Tablet) 5 mg PO Q4H PRN PRN Reason: Pain, Severe (Pain Scale 7-10) Last Admin: 08/14/23 15:33 Dose: 5 mg Documented By: DOROTHY Pharmacy Consult (Consult Rx Vancomycin Dosing) 1 each MISCELLANE DAILY PRN PRN Reason: Consult order Polyethylene Glycol (Polyethylene Glycol 3350 17 Gm Powd.Pack) 17 gm PO DAILY PRN PRN Reason: Constipation Quetiapine Fumarate (Quetiapine Fumarate 25 Mg Tablet) 25 mg PO BID [facility] Last Admin: 08/14/23 07:35 Dose: 25 mg Documented By: BOB Quetiapine Fumarate (Quetiapine Fumarate 300 Mg Tablet) 300 mg PO BEDTIME [facility] Last Admin: 08/13/23 20:07 Dose: 300 mg Documented By: MAG Senna (Sennosides 8.6 Mg Tablet) 17.2 mg PO BEDTIME PRN PRN Reason: Constipation Sodium Chloride (0.9 % Sodium Chloride Flush 3 Ml Syringe) 3 ml IVFLUSH QSHIFT [facility] Last Admin: 08/14/23 15:31 Dose: Not Given Documented By: DOROTHY Non-Admin Reason: IV Running Labs 08/13/23 03:59 08/14/23 12:39 Labs: Laboratory Results - last 24 hr 08/13/23 08/13/23 08/14/23 15:09 20:08 12:39 Hold Purple Top SEE NOTE Estim Creat Clear Calc 81.9 Estimated GFR > 60 Random Vancomycin 6.5 L C.trachomatis RNA (TMA) Cancelled N.gonorrhoeae RNA (TMA) Cancelled Bact Vag AUTUMN Interpr Cancelled Microbiology Microbiology Results: Microbiology 08/12/23 17:21 Blood Culture - Preliminary Blood - Venous No growth after 24 hours. 08/12/23 15:50 Blood Culture - Preliminary Blood - Venous No growth after 24 hours. Assessment and Plan (1) MRSA bacteremia: Status: Inactive Plan 37-year-old woman admitted with MRSA bacteremia. Had labs drawn on 08/05/2023 that were positive and patient was called back to the ER. MRSA bacteremia 1/2 positive 08/04, repeat negative No sepsis Seen by ID, recommended 4 weeks of IV vancomycin Echocardiogram negative for endocarditis Plan for PICC line placement on Thursday Substance abuse Patient reports using 5 bundles of heroin a day, also uses cocaine and fentanyl Addiction medicine consultation> discussed with [place], can use Dilaudid and oxycodone as patient has a high tolerance. wean as able Home dose verified and continued- methadone 190 mg daily Foul smelling vaginal discharge Patient to self obtain BV swab Mental health On Seroquel Normocytic anemia H&H above transfusion threshold Smoker Discussed importance of smoking cessation NRT ordered DVT prophylaxis with Lovenox Full code Requires ongoing inpatient hospitalization for treatment of MRSA bacteremia requiring IV antibiotics, echocardiogram and specialty consultation. Due to patient's history of substance abuse she is at high risk for decompensation if bacteremia is not treated. Quality Stroke Does the patient have a stroke diagnosis?: No VTE Prior VTE?: No VTE Risk Level:: Medical - moderate - high VTE Device Contraindication: Treatment Not Indicated VTE Drug Contraindication: N/A - Med Ordered
--- NOTE | 2023-08-14 17:19 | PC.NURSE ---
Awaiting for female staff to assist with Vaginal Swabs.
--- NOTE | 2023-08-14 18:18 | PC.NURSE ---
Pt self swab with swabs given to this development writer from the ED. One White, black and pink.
[2023-08-14 20:50] LABS: Vancomycin Trough 13.7 mcg/mL (10.0-20.0)
[2023-08-14] MEDS: Docusate Sodium 100 MG CAPSULE PO (20:53)
[2023-08-14] MEDS: QUEtiapine Fumarate 300 MG TABLET PO (20:53)
[2023-08-14] MEDS: Melatonin 3 MG TABLET 6 MG PO (20:53)
[2023-08-15] VITALS: BP 125/60; PULSE 80; RESP 16; TEMP 36.6; O2SAT 95
[2023-08-15 03:31] LABS: CT PCR NOT DETECTED (Not Detect.); NG PCR NOT DETECTED (Not Detect.)
[2023-08-15] MEDS: vancomycin HCL 1,000 MG in 0.9 % Sodium Chloride 250 ML 250 MG IV (05:22)
[2023-08-15 07:41] VITALS: BP 126/76; PULSE 66; RESP 18; TEMP 36.2; O2SAT 100
[2023-08-15 08:13] LABS: Creatinine Clr Calc Pharmacy 82.9; Estimated Glomerular Filt Rate > 60
[2023-08-15] MEDS: QUEtiapine Fumarate 25 MG TABLET PO (08:14)
[2023-08-15] MEDS: Gabapentin 400 MG CAPSULE 800 MG PO ×2 (08:14→14:23)
[2023-08-15] MEDS: methADONE HCl 20 MG/2 ML ORAL.CONC 190 MG PO (08:15)
[2023-08-15] MEDS: 0.9 % Sodium Chloride Flush 3 ML SYRINGE IVFLUSH ×2 (08:15→15:35)
[2023-08-15 08:34] VITALS: RESP 18
[2023-08-15] MEDS: HYDROmorphone HCl 1 MG/ML SYRINGE IVPUSH ×3 (08:34→19:30)
[2023-08-15] MEDS: Mineral Oil/Petrolatum,White 106 GM Tube 1 APPL TOPICAL (08:35)
[2023-08-15 09:46] LABS: Bacterial Vaginosis PCR NEGATIVE (Negative); Candida Group PCR NOT DETECTED (Not Detect); Candida glab krusei PCR NOT DETECTED (Not Detect); Trichomonas vaginalis PCR NOT DETECTED (Not Detect)
[2023-08-15] MEDS: LORazepam 0.5 MG TABLET PO ×2 (10:23→16:33)
[2023-08-15] MEDS: Nicotine Polacrilex 2 MG GUM BUCCAL ×2 (10:23→12:41)
[2023-08-15] MEDS: Nicotine 14 MG PATCH.TD24 TRANSDERMA (10:43)
[2023-08-15] MEDS: Calcium Carbonate 750 MG TAB.CHEW PO (12:41)
[2023-08-15] MEDS: oxyCODONE HCl Immed Release 5 MG TABLET PO ×2 (12:42→16:34)
[2023-08-15] MEDS: hydrOXYzine HCL 25 MG TABLET PO (12:42)
[2023-08-15] MEDS: vancomycin HCL 1,000 MG in 0.9 % Sodium Chloride 250 ML 270 MG IV (14:23)
[2023-08-15 15:22] VITALS: BP 138/93; PULSE 67; RESP 18; TEMP 36.1; O2SAT 97
[2023-08-15] MEDS: Omeprazole 20 MG CAPSULE.DR PO (16:13)
[2023-08-15] MEDS: Enoxaparin Sodium 40 MG/0.4 ML SYRINGE SUBCUT (16:13)
--- NOTE | 2023-08-15 16:46 | PC.NURSE ---
blisters cleansed with NS,comfel drsg applied,clean socks on,patient states it feels comfortable with it skin intact ,no drainage
--- NOTE | 2023-08-15 17:21 | P.PNIM_ITS ---
Subjective Subjective Date of Service: 08/15/23 Interval History: Seen and examined this morning Follow-up for MRSA bacteremia Patient complaining of foot pain and anxiety Review of Systems Review of Systems: Yes all other systems are reviewed and are negative Constitutional Constitutional: Denies chills and Denies fever(s) Cardiovascular Cardiovascular: Denies chest pain Gastrointestinal Gastrointestinal: Denies abdominal pain, Denies nausea and Denies vomiting Physical Exam 2 Vital Signs: Vital Signs: Last Vital Signs Temp 97 F 08/15/23 15:22 Pulse 67 08/15/23 15:22 Resp 18 08/15/23 15:22 BP 138/93 H 08/15/23 15:22 Pulse Ox 97 08/15/23 15:22 O2 Del Method Room Air 08/15/23 15:22 BMI result Body Mass Index 22.3 Const: General: cooperative, comfortable, no acute distress, alert and awake Nutritional Appearance: average body habitus Orientation/consciousness: p atient oriented x3 Resp: Effort & Inspection: normal respiratory effort, able to speak in complete sentences, no respiratory distress and no use of accessory muscles Cardio: Rate: regular rate GI: Inspection: No distended Palpation (GI): Soft to palpation Skin: Other: Callus, plantar aspect feet, improving, no erythema, no fluctuance to suggest abscess; numerous areas of scabbing on extremities, no surrounding erythema no drainage Neuro: General: patient oriented x3, moves all extremities and CN's II-XI intact bilaterally Objective Data Active Medications Acetaminophen (Acetaminophen 325 Mg Tablet) 650 mg PO Q6H PRN PRN Reason: Fever, mild pain, headache Calcium Carbonate (Calcium Carbonate 750 Mg Tab.Chew) 750 mg PO Q6H PRN PRN Reason: Heartburn Last Admin: 08/15/23 12:41 Dose: 750 mg Documented By: MARLA Docusate Sodium (Docusate Sodium 100 Mg Capsule) 100 mg PO BEDTIME [facility] Last Admin: 08/14/23 20:53 Dose: 100 mg Documented By: MARIAA Enoxaparin Sodium (Enoxaparin Sodium 40 Mg/0.4 Ml Syringe) 40 mg SUBCUT Q24H [facility] Last Admin: 08/15/23 16:13 Dose: 40 mg Documented By: MAG Gabapentin (Gabapentin 400 Mg Capsule) 800 mg PO TID [facility] Last Admin: 08/15/23 14:23 Dose: 800 mg Documented By: MARLA Hydromorphone HCl (Hydromorphone Hcl 1 Mg/Ml Syringe) 1 mg IVPUSH Q4H PRN; Protocol PRN Reason: Pain, Severe (Pain Scale 7-10) Last Admin: 08/15/23 14:23 Dose: 1 mg Documented By: MARLA Hydroxyzine HCl (Hydroxyzine Hcl 25 Mg Tablet) 25 mg PO BID PRN PRN Reason: Anxiety Last Admin: 08/15/23 12:42 Dose: 25 mg Documented By: MARLA Vancomycin HCl 1,000 mg/ (Sodium Chloride) 270 mls @ 270 mls/hr IV Q8H [facility] Last Infusion: 08/15/23 16:48 Dose: Infused Documented By: MAG Lorazepam (Lorazepam 0.5 Mg Tablet) 0.5 mg PO Q6H PRN PRN Reason: anxiety Last Admin: 08/15/23 16:33 Dose: 0.5 mg Documented By: MAG Comments: patient requested for anxiety Magnesium Hydroxide (Milk Of Magnesia 30 Ml Oral.Susp) 30 ml PO DAILY PRN PRN Reason: Constipation Melatonin (Melatonin 3 Mg Tablet) 6 mg PO BEDTIME PRN PRN Reason: Insomnia Last Admin: 08/14/23 20:53 Dose: 6 mg Documented By: MARIAA Methadone HCl (Methadone Hcl 20 Mg/2 Ml Oral.Conc) 190 mg PO DAILY [facility] Last Admin: 08/15/23 08:15 Dose: 190 mg Documented By: MARLA Multi-Ingred Cream/Lotion/Oil/Oint (Mineral Oil/Petrolatum,White 106 Gm Tube) 1 appl TOPICAL BID [facility]; Protocol Last Admin: 08/15/23 08:35 Dose: 1 appl Documented By: MARLA Nicotine (Nicotine 14 Mg Patch.Td24) 14 mg TRANSDERMA DAILY [facility] Last Admin: 08/15/23 10:43 Dose: 14 mg Documented By: MARLA Nicotine Polacrilex (Nicotine Polacrilex 2 Mg Gum) 2 mg BUCCAL Q2H PRN PRN Reason: Nicotine Cravings Last Admin: 08/15/23 12:41 Dose: 2 mg Documented By: MARLA Omeprazole (Omeprazole 20 Mg Capsule.Dr) 20 mg PO DAILY@0630 [facility] Last Admin: 08/15/23 16:13 Dose: 20 mg Documented By: MAG Oxycodone HCl (Oxycodone Hcl Immed Release 5 Mg Tablet) 5 mg PO Q4H PRN PRN Reason: Pain, Severe (Pain Scale 7-10) Last Admin: 08/15/23 16:34 Dose: 5 mg Documented By: MAG Pharmacy Consult (Consult Rx Vancomycin Dosing) 1 each MISCELLANE DAILY PRN PRN Reason: Consult order Polyethylene Glycol (Polyethylene Glycol 3350 17 Gm Powd.Pack) 17 gm PO DAILY PRN PRN Reason: Constipation Quetiapine Fumarate (Quetiapine Fumarate 25 Mg Tablet) 25 mg PO BID [facility] Last Admin: 08/15/23 08:14 Dose: 25 mg Documented By: MARLA Quetiapine Fumarate (Quetiapine Fumarate 300 Mg Tablet) 300 mg PO BEDTIME [facility] Last Admin: 08/14/23 20:53 Dose: 300 mg Documented By: ORKELBYV Senna (Sennosides 8.6 Mg Tablet) 17.2 mg PO BEDTIME PRN PRN Reason: Constipation Sodium Chloride (0.9 % Sodium Chloride Flush 3 Ml Syringe) 3 ml IVFLUSH QSHIFT [facility] Last Admin: 08/15/23 15:35 Dose: 3 ml Documented By: MAG Labs 08/13/23 03:59 08/15/23 07:48 Labs: Laboratory Results - last 24 hr 08/14/23 08/14/23 08/15/23 18:15 20:07 07:48 Estim Creat Clear Calc 82.9 Estimated GFR > 60 Vancomycin Trough 13.7 Chlam trachomat DNA PCR NOT DETECTED N.gonorrhoeae DNA (PCR) NOT DETECTED T. vaginalis (PCR) NOT DETECTED Bact Vaginosis (PCR) NEGATIVE C. krusei/glabrata (PCR) NOT DETECTED Gayatri group (PCR) NOT DETECTED Microbiology Microbiology Results: Microbiology 08/12/23 17:21 Blood Culture - Preliminary Blood - Venous No growth after 48 hours. 08/12/23 15:50 Blood Culture - Preliminary Blood - Venous No growth after 48 hours. Assessment and Plan (1) Positive blood culture: Status: Acute Plan 37-year-old woman admitted with MRSA bacteremia. Had labs drawn on 08/05/2023 that were positive and patient was called back to the ER. MRSA bacteremia 1/2 positive 08/04, repeat negative No sepsis Seen by ID, recommended 4 weeks of IV vancomycin- end date September 08 Echocardiogram negative for endocarditis Plan for PICC line placement on Thursday Substance abuse Patient reports using 5 bundles of heroin a day, also uses cocaine and fentanyl Addiction medicine consultation> discussed with [facility], can use Dilaudid and oxycodone as patient has a high tolerance. wean as able Home dose verified and continued- methadone 190 mg daily Foul smelling vaginal discharge BV swab negative Mental health On Seroquel Normocytic anemia H&H above transfusion threshold Smoker Discussed importance of smoking cessation NRT ordered DVT prophylaxis with Lovenox Full code Requires ongoing inpatient hospitalization for treatment of MRSA bacteremia requiring IV antibiotics, echocardiogram and specialty consultation. Due to patient's history of substance abuse she is at high risk for decompensation if bacteremia is not treated. Quality Stroke Does the patient have a stroke diagnosis?: No VTE Prior VTE?: No VTE Risk Level:: Medical - moderate - high VTE Device Contraindication: Treatment Not Indicated VTE Drug Contraindication: N/A - Med Ordered
[2023-08-15 19:33] VITALS: BP 165/88; PULSE 81; RESP 20; TEMP 36.7; O2SAT 99
--- NOTE | 2023-08-15 19:47 | PM.EVENT ---
Event Note Date of Service: 08/15/23 Event Note: 7:45 PM - Patient requesting to leave AMA. She is aware of the consequences to abandon the hospital earlier such worsening infection and . Patient knows she has a bacteria in her blood and needs IV antibiotic therapy. Patient understood the risks and signed AMA paperwork. Time Spent With Patient Time: Total time managing care of this patient today ____ minutes.
--- NOTE | 2023-08-15 19:52 | PC.NURSE ---
patient decided to leave [facility],Dr. Hernandez notified,came and spoke with patient ,patient refused to listen to any teaching,MELECIO Hi assisted patient to security office to greens picker patient belongins
--- NOTE | 2023-08-16 12:08 | P.DS_ITS ---
DS: Providers Provider Date of Service: 08/15/23 Date of discharge: 08/15/23 Primary care physician: Unknown Physician Attending physician on discharge: Carlo Quezada Discharging clinician: Lianet Harris DS: Diagnosis Discharge Diagnosis (1) Opioid use disorder, moderate, dependence: Status: Inactive (2) Positive blood culture: Status: Acute DS: Summary Time Attestation Discharge Coordination Time (in mins): 30 Quality: Safe Use of Opioids Does Pt have an Active Cancer Diagnosis on the Problem List?: No Quality: Stroke Does the patient have a stroke diagnosis?: No Physical Exam Vital Signs: Vital Signs: Last Vital Signs Temp 98.3 F 08/16/23 10:19 Pulse 61 08/16/23 10:19 Resp 18 08/16/23 10:19 BP 94/58 L 08/16/23 10:19 Pulse Ox 98 08/16/23 10:19 O2 Del Method Room Air 08/16/23 10:19 BMI result Body Mass Index 22.9 Const: General: alert and awake DS: Data Data Completed and Pending Completed studies during hospitalization [Text1]: Procedures Detoxification Services for Substance Abuse Treatment (10/05/20) Labs on day of discharge: Laboratory Results - last 24 hr 08/16/23 08/16/23 08/16/23 02:51 04:27 06:51 WBC 6.5 RBC 3.47 L Hgb 9.7 L Hct 31.0 L MCV 89.3 MCH 28.0 MCHC 31.3 RDW 15.8 Plt Count 287 MPV 9.3 L Immature Gran % (Auto) 0.5 H Neut % (Auto) 68.6 Lymph % (Auto) 25.2 [place] % (Auto) 4.9 Eos % (Auto) 0.5 Baso % (Auto) 0.3 Lymph # (Auto) 1.6 [place] # (Auto) 0.3 Eos # (Auto) 0.0 Baso # (Auto) 0.0 Abs Immat Gran (auto) 0.03 Absolute Neuts (auto) 4.5 Absolute Nucleated RBC 0.000 Nucleated RBC % (auto) 0.0 Sodium 139 Potassium 4.7 D Chloride 101 Carbon Dioxide 24 Anion Gap 19 BUN 15 Creatinine 0.95 Estim Creat Clear Calc 70.6 Estimated GFR > 60 Random Glucose 104 Calcium 9.8 D Vancomycin Trough 8.7 L Urine Opiates Screen POSITIVE H Ur Buprenorphine Scrn Not Detected Ur Oxycodone Screen Positive H Urine Methadone Screen Positive H Urine Fentanyl Screen POSITIVE H Ur Barbiturates Screen Not Detected Ur Phencyclidine Scrn Not Detected Ur Amphetamines Screen Not Detected U Benzodiazepines Scrn Not Detected Urine Cocaine Screen POSITIVE H U Marijuana (THC) Screen Not Detected Discharge Plan Discharge Patient Disposition: Left Against Medical Advice Discharge Diagnosis: bacteremia Referrals: Physician,Unknown J [Physician] - 1 Week Discharge Medications: No Action nicotine (polacrilex) 4 mg gum 4 mg PO QID PRN (Reason: Nicotine Cravings) nicotine 21 mg/24 hr patch 24 hour 1 patch topical DAILY quetiapine 50 mg tablet extended release 24 hr 50 mg PO DAILY hydroxyzine HCl 25 mg tablet 25 mg PO BID PRN (Reason: Anxiety) ibuprofen 600 mg tablet 600 mg PO BID PRN (Reason: Pain) omeprazole 20 mg Capsule,Delayed Release(Dr/Ec) 20 mg PO DAILY@0630 Qty: 30 0RF daptomycin in 0.9 % sod chlor 700 mg/100 mL piggyback 600 mg IV Q24H Rx Instructions: administer over 30 mins oxycodone 5 mg tablet 5 mg PO BID PRN (Reason: pain (scale score 4-6)) Qty: 10 0RF Rx Instructions: Partial Fill upon patient request. quetiapine 300 mg tablet 300 mg PO BEDTIME gabapentin 800 mg tablet 800 mg PO TID methadone [Methadose] 10 mg/mL Concentrate 190 mg PO DAILY Discharge Orders: Discharge Order (Routine); Ordered 08/21/23 Ordered By: Lianet Harris Print Language: [place]raini Care Plan Goals: left ama Health Concerns: left ama Plan of Treatment: left ama Assessment: left ama Discharge Date/Time: 08/15/23 19:55
== END 2023-08-15 19:55 | disposition left against medical advice (07) | DRG 724 ==
LOC: HO.ED 15:08 → HO.EDOVER 16:06 → HO.S3 08-13 15:19
PROVIDERS: Admitting Provider Nurse Practitioner Acute Care; Emergency Provider Emergency Medicine; PCP Physician Assistant; Visit Provider Physician Assistant Medical
DX: R78.81 Bacteremia (principal); B95.62 Methicillin resistant Staphylococcus aureus infection as the cause of diseases classified elsewhere; F11.20 Opioid dependence, uncomplicated; F17.210 Nicotine dependence, cigarettes, uncomplicated; D64.9 Anemia, unspecified; F31.9 Bipolar disorder, unspecified; Z59.02 Unsheltered homelessness; F19.90 Other psychoactive substance use, unspecified, uncomplicated; Z71.6 Tobacco abuse counseling; Z79.899 Other long term (current) drug therapy
CPT/HCPCS: 0352U; 0353U; 36415; 71045; 80048; 80076; 80202; 81003; 81513; 82565; 83605; 85025; 85610; 85730; 87040; 87491; 87591; 93005; 93306; 99285; J0696; J1170; J1650; J1836; J2060; J2405; J3360; J3370; J3371; J7120; Q9957

== ENCOUNTER 2023-08-12 15:53 | Outpatient (BNV) | payer MEDICAID, SELFPAY | END 2023-08-14 07:00 | PROVIDERS: Admitting Provider Nurse Practitioner Acute Care; Emergency Provider Emergency Medicine; Visit Provider Internal Medicine Cardiovascular Disease | DX: R78.81 Bacteremia (principal) | CPT/HCPCS: 93306 ==

== ENCOUNTER 2023-08-12 15:53 | Outpatient (BNV) | payer MEDICAID, SELFPAY | END 2023-08-13 09:24 | PROVIDERS: Admitting Provider Nurse Practitioner Acute Care; Emergency Provider Emergency Medicine; Visit Provider Internal Medicine Cardiovascular Disease | DX: I45.81 Long QT syndrome (principal) | CPT/HCPCS: 93010 ==

== ENCOUNTER → 2023-08-12 15:53 | Outpatient (BNV) | payer MEDICAID, SELFPAY | PROVIDERS: Admitting Provider Nurse Practitioner Acute Care; Emergency Provider Emergency Medicine; Visit Provider Physician Assistant Medical | DX: F11.20 Opioid dependence, uncomplicated (principal); R78.81 Bacteremia | CPT/HCPCS: 99223; 99232; 99233; 99239; 99499 ==

== ENCOUNTER → 2023-08-12 15:53 | Outpatient (BNV) | payer MEDICAID, SELFPAY | PROVIDERS: Admitting Provider Nurse Practitioner Acute Care; Emergency Provider Emergency Medicine; Visit Provider Internal Medicine | DX: R78.81 Bacteremia (principal); B95.62 Methicillin resistant Staphylococcus aureus infection as the cause of diseases classified elsewhere | CPT/HCPCS: 99222 ==

== ENCOUNTER 2023-08-16 02:21 | Inpatient (IN) | payer MEDICAID, SELFPAY ==
[2023-08-16 02:30] VITALS: BMI 22.9
--- NOTE | 2023-08-16 02:35 | ED.GENADULT ---
HPI - General Adult General Chief complaint: General Medical Stated complaint: CRISIS Time Seen by Provider: 08/16/23 02:29 History of Present Illness HPI narrative: Patient is a 37-year-old female with a history of MRSA infection in the blood. Patient just left against medical advice earlier today. When outside did cocaine did heroin. Found by PD patient now wants to come back to the hospital and be admitted. Denies any suicidal homicidal ideation baseline is on methadone Related Data Home Medications ?Medication ?Instructions ?Recorded ?Confirmed gabapentin 800 mg tablet 800 mg PO TID 08/09/23 08/12/23 methadone 10 mg/mL oral 190 mg PO DAILY 08/09/23 08/13/23 concentrate (Methadose) quetiapine 300 mg tablet 300 mg PO BEDTIME 08/09/23 08/12/23 hydroxyzine HCl 25 mg tablet 25 mg PO BID PRN Anxiety 08/12/23 08/12/23 nicotine (polacrilex) 4 mg gum 4 mg PO TID PRN Nicotine Cravings 08/12/23 08/12/23 nicotine 21 mg/24 hr daily 1 patch topical DAILY 08/12/23 08/12/23 transdermal patch quetiapine 50 mg tablet,extended 50 mg PO DAILY 08/12/23 08/12/23 release 24 hr Allergies Allergy/AdvReac Type Severity Reaction Status Date / Time No Known Allergies Allergy Verified 08/16/23 02:32 [No Known Allergies*] Review of Systems Review of Systems: Positive polysubstance abuse Yes all other systems are reviewed and are negative PMFSH Past Medical History Attestation statement: The following information was validated with the patient. Medical History History of drug dependence/abuse Atypical bipolar disorder Opiate withdrawal Acute anxiety Drug-induced psychotic disorder Depression PTSD (post-traumatic stress disorder) Anxiety Depression Social History Social History Household Members: Other Household Members Other:: grandmother Housing: Apartment Do you presently have visiting nurse or other home services: No 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: current 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 frequency: a few times a month Alcohol type: beer, wine and hard liquor 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 Patient Tobacco Use Status: Current everyday Tobacco user Tobacco use type: Cigarette Cigarette Packs Per Day: 2.5 Cigarettes Per Day: 50.0 Years Smoked: 23 Second Hand Smoke Exposure: Yes Substance Use Type: Crack/Cocaine, Heroin and IV Drugs Do you have a plan to hurt others: No Plan service: No Current occupational status: unemployed Sexual orientation: Straight/Heterosexual Physical Exam ED Vital Signs: BMI result Body Mass Index 22.9 Appearance: Alert. Oriented X3. No acute distress. Eyes: Pupils equal, round and reactive to light. ENT: Pharynx normal. Neck: Normal inspection. Neck supple. No lymph nodes noted. No crepitus CVS: Normal heart rate and rhythm. Pulses normal. Normal S1 and S2 Respiratory: No respiratory distress. Breath sounds normal. No Wheezing. No rales Abdomen: Soft and nontender. No rigidity. No distention. good BS x4 Skin: Skin warm and dry. Normal skin color. Normal skin turgor. Multiple track nieves noted bilateral extremities Extremities: No lower extremity edema. Neurovascular intact to all extremities. No Lacerations. No Rash Neuro: Oriented X 3. No motor deficit. No sensory deficit. Moving all extermities. No slurred speech Medical Decision Making Medical Decision Making [facility] Narrative: Well-appearing no acute distress now patient is willing to stay. Explained to patient the need to get her antibiotics. Patient states understanding. Differential Diagnosis Differential Diagnoses: The differential diagnosis associated with the presentation includes Bacteremia Admission/Observation Consideration of admission/observation: Escalation of care including admission/observation considered Consult Healthcare Provider Management of the patient was discussed with: Hospitalist Lab Data [facility] Lab Attestation statement: I reviewed the patient's lab results. Independent Historian Clinical information obtained from an independent historian. History obtained from or confirmed by: EMS and Other (PD) External Record Review External record reviewed: Inpatient record Review patient's inpatient record. Patient has just signed out against medical advice earlier today Discharge Plan Discharge Clinical Impression: Positive blood culture, Cocaine use disorder, Opioid use disorder, moderate, dependence Patient Disposition: Admitted As Inpatient Prescriptions: No Action nicotine (polacrilex) 4 mg gum 4 mg PO TID PRN (Reason: Nicotine Cravings) nicotine 21 mg/24 hr patch 24 hour 1 patch topical DAILY quetiapine 50 mg tablet extended release 24 hr 50 mg PO DAILY hydroxyzine HCl 25 mg tablet 25 mg PO BID PRN (Reason: Anxiety) quetiapine 300 mg tablet 300 mg PO BEDTIME gabapentin 800 mg tablet 800 mg PO TID methadone [Methadose] 10 mg/mL Concentrate 190 mg PO DAILY Print Language: [place]ib[place]ian
[2023-08-16] MEDS: oxyCODONE HCl Immed Release 5 MG TABLET PO ×3 (02:51→20:53)
[2023-08-16] MEDS: LORazepam 1 MG TABLET PO (02:52)
--- NOTE | 2023-08-16 02:55 | PC.NURSE ---
pt refusing vitals at this time
[2023-08-16 03:08] LABS: Basophils Percent Auto 0.3 % (0-2); Eosinophils Percent Auto 0.5 % (0-4); Hemoglobin 9.7 g/dl (12.0-16.0); Imm Gran Abs Auto 0.03 X10*3/uL (0.00-0.03); Imm Gran Pct Auto 0.5 % (0.0-0.4); Lymphocytes Absolute Auto 1.6 X10*3/uL (1.2-4.9); Lymphocytes Percent Auto 25.2 % (20-40); MANUAL DIFF FLAG NO; Mean Corpuscular HGB Conc 31.3 g/dl (31.0-35.0); Mean Corpuscular Volume 89.3 fL (80.0-98.0); Mean Platelet Volume 9.3 fL (9.4-12.3); Monocytes Absolute Auto 0.3 X10*3/uL (0.1-1.2); Monocytes Percent Auto 4.9 % (2-11); Neutrophils Absolute Auto 4.5 x10*3/uL (2.0-8.3); Neutrophils Percent Auto 68.6 % (45-73); Platelet Count 287 X10*3/uL (160-400); Red Blood Count 3.47 X10*6/uL (4.20-5.50); Red Cell Distribution Width 15.8 % (11.0-16.0); White Blood Count 6.5 X10*3/uL (4.8-10.8)
[2023-08-16 03:22] LABS: Anion Gap 19 (12-20); Blood Urea Nitrogen 15 mg/dL (9-16); Calcium 9.8 mg/dL (8.4-10.2); Carbon Dioxide 24 mmol/L (22-29); Chloride 101 mmol/L (96-108); Creatinine Clr Calc Pharmacy 70.6; Estimated Glomerular Filt Rate > 60; Glucose Random 104 mg/dL (60-115); Potassium 4.7 mmol/L (3.3-5.1); Sodium 139 mmol/L (135-145)
--- NOTE | 2023-08-16 04:16 | MHC.EDTECH ---
pt refusing vitals.
[2023-08-16 04:43] LABS: Vancomycin Trough 8.7 mcg/mL (10.0-20.0)
--- NOTE | 2023-08-16 04:45 | PC.NURSE ---
Security called to pt bedside as pt flipped bed and moved IV cart while covering up with bed sheet attempting to leave. This is also the 2nd IV the pt has ripped out stating that its posioning me. Attempted to deescalate with staff and provider however pt kept yelling and screaming I am going to get shot here and I feel like I am being electrocuted by the bed Look everything is trying to kill me. .
[2023-08-16] MEDS: Haloperidol Lactate 5 MG/ML VIAL IM (05:04)
[2023-08-16] MEDS: diphenhydrAMINE HCL 50 MG/ML VIAL IM (05:04)
[2023-08-16] MEDS: LORazepam 2 MG/ML VIAL IM (05:04)
[2023-08-16 06:20] VITALS: BP 92/50; PULSE 78; RESP 16; TEMP 36.5; O2SAT 95
--- NOTE | 2023-08-16 06:25 | PC.NURSE ---
Provider ordered IM medications to calm down and administered at 0500. Pt is now resting quietly however still moving and waking up pulling at thing when taking vitals. Will hold off on attempting the 3rd IV at this time for pt and staff safety
[2023-08-16 07:10] LABS: Amphetamine Screen Urine Not Detected (Not Detect); Barbiturates, Urine Not Detected (Not Detect); Benzodiazepines Screen Urine Not Detected (Not Detect); Buprenorphine Scr Not Detected (Not Detect); Cannabinoid Screen Urine Not Detected (Not Detect); Cocaine Screen Urine POSITIVE (Not Detect); Fentanyl, urine POSITIVE (Not Detect); Methadone Screen, Urine Positive (Not Detect); Opiate Screen Urine POSITIVE (Not Detect); Oxycodone Screen Urine Positive (Not Detect); Phencyclidine Screen Urine Not Detected (Not Detect)
--- NOTE | 2023-08-16 08:00 | PC.NURSE ---
pt is sleeping respirations even and unlabored
--- NOTE | 2023-08-16 09:30 | PHA.MEDREC ---
Pharmacy Consult ? Medication Reconciliation Pharmacy has completed the medication reconciliation. Patient left AMA yesterday. Used Med record + claim history.
[2023-08-16 10:19] VITALS: BP 94/58; PULSE 61; RESP 18; TEMP 36.8; O2SAT 98
--- NOTE | 2023-08-16 11:42 | PC.NURSE ---
Patient sleeping in bed, quickly aggravated when staff attempts to provide care.
--- NOTE | 2023-08-16 12:08 | PM.DS ---
DS: Providers Provider Date of Service: 08/15/23 Date of discharge: 08/15/23 Primary care physician: Unknown Physician Attending physician on discharge: Carlo Quezada Discharging clinician: Lianet Harris DS: Diagnosis Discharge Diagnosis (1) Opioid use disorder, moderate, dependence: Status: Acute (2) Positive blood culture: Status: Acute DS: Summary Hospital Course Hospital Course: From H&P on the day of admission 37-year-old woman with a history of bipolar disorder, polysubstance abuse presented to the ER with abnormal blood work. She was in the ER on 08/04 and 514. She was called today due to a positive blood culture results with MRSA. She denied any fever, chills, nausea, vomiting, chest pain, shortness for breath. She has multiple injection sites to her arms and multiple scabbed areas to her legs. She is hemodynamically stable, labs all within acceptable limits. She was started on Rocephin, doxycycline, Flagyl, vancomycin in the ER. She will be admitted for further management and treatment of MRSA bacteremia. MRSA bacteremia 1/2 positive 08/04, repeat negative No sepsis Seen by ID, recommended 4 weeks of IV vancomycin- end date September 08 Echocardiogram negative for endocarditis planned for PICC and placement to complete course of IV antibiotics Substance abuse Patient reports using 5 bundles of heroin a day, also uses cocaine and fentanyl seen by Addiction medicine Home dose verified and continued- methadone 190 mg daily Foul smelling vaginal discharge BV swab negative The patient elected to leave the hospital against medical advice on the evening of August 14. Time Attestation Discharge Coordination Time (in mins): 30 Quality: Safe Use of Opioids Does Pt have an Active Cancer Diagnosis on the Problem List?: No Quality: Stroke Does the patient have a stroke diagnosis?: No Physical Exam Vital Signs: Vital Signs: Last Vital Signs Temp 98.3 F 08/16/23 10:19 Pulse 61 08/16/23 10:19 Resp 18 08/16/23 10:19 BP 94/58 L 08/16/23 10:19 Pulse Ox 98 08/16/23 10:19 O2 Del Method Room Air 08/16/23 10:19 BMI result Body Mass Index 22.9 Const: General: alert and awake DS: Data Data Completed and Pending Completed studies during hospitalization [Text1]: Procedures Detoxification Services for Substance Abuse Treatment (10/05/20) Labs on day of discharge: Laboratory Results - last 24 hr 08/16/23 08/16/23 08/16/23 02:51 04:27 06:51 WBC 6.5 RBC 3.47 L Hgb 9.7 L Hct 31.0 L MCV 89.3 MCH 28.0 MCHC 31.3 RDW 15.8 Plt Count 287 MPV 9.3 L Immature Gran % (Auto) 0.5 H Neut % (Auto) 68.6 Lymph % (Auto) 25.2 [place] % (Auto) 4.9 Eos % (Auto) 0.5 Baso % (Auto) 0.3 Lymph # (Auto) 1.6 [place] # (Auto) 0.3 Eos # (Auto) 0.0 Baso # (Auto) 0.0 Abs Immat Gran (auto) 0.03 Absolute Neuts (auto) 4.5 Absolute Nucleated RBC 0.000 Nucleated RBC % (auto) 0.0 Sodium 139 Potassium 4.7 D Chloride 101 Carbon Dioxide 24 Anion Gap 19 BUN 15 Creatinine 0.95 Estim Creat Clear Calc 70.6 Estimated GFR > 60 Random Glucose 104 Calcium 9.8 D Vancomycin Trough 8.7 L Urine Opiates Screen POSITIVE H Ur Buprenorphine Scrn Not Detected Ur Oxycodone Screen Positive H Urine Methadone Screen Positive H Urine Fentanyl Screen POSITIVE H Ur Barbiturates Screen Not Detected Ur Phencyclidine Scrn Not Detected Ur Amphetamines Screen Not Detected U Benzodiazepines Scrn Not Detected Urine Cocaine Screen POSITIVE H U Marijuana (THC) Screen Not Detected Discharge Plan Discharge Clinical Impression: Positive blood culture, Cocaine use disorder, Opioid use disorder, moderate, dependence Patient Disposition: Admitted As Inpatient Print Language: Croatian
--- NOTE | 2023-08-16 12:13 | HE.PHANOTE ---
Methadone: Pt last received here at [facility] 08/13/23 at 9:30am, dose was 190mg QD. Patient has missed 2 days.
--- NOTE | 2023-08-16 12:41 | PM.IMHP ---
History of Present Illness Date of Service: 08/16/23 [facility] Chief Complaint: bacteremia This is a 37-year-old female with history of polysubstance abuse recently admitted to the hospital for MRSA bacteremia. Unfortunately she left overnight against medical advice and returned later in the evening. In the emergency department she had increased agitation and received multiple doses of sedating medications. She is now awake, alert and willing to stay in the hospital for treatment. She denies fever, chills, cough, abdominal pain, nausea, vomiting. In the emergency department she is remained afebrile, lab work reveals no leukocytosis. She will be readmitted for treatment of bacteremia. [facility] Medical History History of drug dependence/abuse Atypical bipolar disorder Opiate withdrawal Acute anxiety Drug-induced psychotic disorder Depression PTSD (post-traumatic stress disorder) Anxiety Depression Social History Household Members: Other Household Members Other:: grandmother Housing: Apartment Do you presently have visiting nurse or other home services: No 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: current 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 frequency: a few times a month Alcohol type: beer, wine and hard liquor 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 Patient Tobacco Use Status: Current everyday Tobacco user Tobacco use type: Cigarette Cigarette Packs Per Day: 2.5 Cigarettes Per Day: 50.0 Years Smoked: 23 Smoked in Last 30 Days: Yes Second Hand Smoke Exposure: Yes Substance Use Type: Crack/Cocaine, Heroin and IV Drugs Advance Directives: No Advance Directives Information Provided: No Do you have a plan to hurt others: No Plan service: No Current occupational status: unemployed Sexual orientation: Straight/Heterosexual Meds Allergies Allergy/AdvReac Type Severity Reaction Status Date / Time No Known Allergies Allergy Verified 08/16/23 02:32 [No Known Allergies*] Active Medications: Current Medications Acetaminophen (Acetaminophen 325 Mg Tablet) 650 mg PO Q6H PRN PRN Reason: Pain, Mild (Pain Scale 1-3) Benzonatate (Benzonatate 100 Mg Capsule) 100 mg PO TID PRN PRN Reason: Cough Docusate Sodium (Docusate Sodium 100 Mg Capsule) 100 mg PO BID JAIR Enoxaparin Sodium (Enoxaparin Sodium 40 Mg/0.4 Ml Syringe) 40 mg SUBCUT Q24H JAIR Gabapentin (Gabapentin 400 Mg Capsule) 800 mg PO TID JAIR Hydroxyzine HCl (Hydroxyzine Hcl 25 Mg Tablet) 25 mg PO BID PRN PRN Reason: Anxiety Methadone HCl (Methadone Hcl 20 Mg/2 Ml Oral.Conc) 190 mg PO DAILY JAIR Nicotine (Nicotine 21 Mg Patch.Td24) mg TRANSDERMA DAILY [facility] Nicotine Polacrilex (Nicotine Polacrilex 2 Mg Gum) 4 mg BUCCAL QID PRN PRN Reason: Nicotine Cravings Non-Formulary Medication (Quetiapine) 50 mg PO DAILY JAIR Oxycodone HCl (Oxycodone Hcl Immed Release 5 Mg Tablet) 5 mg PO Q6H PRN PRN Reason: Pain, Moderate(Pain Scale 4-6) Quetiapine Fumarate (Quetiapine Fumarate 300 Mg Tablet) 300 mg PO BEDTIME [facility] Sodium Chloride (0.9 % Sodium Chloride Flush 3 Ml Syringe) 3 ml IVFLUSH QSHIFT [facility] Home Medications ?Medication ?Instructions ?Recorded ?Confirmed ?Last Taken ?Type gabapentin 800 mg tablet 800 mg PO TID 08/09/23 08/16/23 Unknown History methadone 10 mg/mL oral 190 mg PO DAILY 08/09/23 08/16/23 08/13/23 09:30 History concentrate (Methadose) quetiapine 300 mg tablet 300 mg PO BEDTIME 08/09/23 08/16/23 Unknown History hydroxyzine HCl 25 mg tablet 25 mg PO BID PRN Anxiety 08/12/23 08/16/23 Unknown History nicotine (polacrilex) 4 mg gum 4 mg PO QID PRN Nicotine Cravings 08/12/23 08/16/23 Unknown History nicotine 21 mg/24 hr daily 1 patch topical DAILY 08/12/23 08/16/23 Unknown History transdermal patch quetiapine 50 mg tablet,extended 50 mg PO DAILY 08/12/23 08/16/23 Unknown History release 24 hr ibuprofen 600 mg tablet 600 mg PO BID PRN Pain 08/16/23 08/16/23 Unknown History Physical Exam Vital Signs and Narrative: Vital Signs: Last Vital Signs Temp 98.3 F 08/16/23 10:19 Pulse 61 08/16/23 10:19 Resp 18 08/16/23 10:19 BP 94/58 L 08/16/23 10:19 Pulse Ox 98 08/16/23 10:19 O2 Del Method Room Air 08/16/23 10:19 BMI result Body Mass Index 22.9 Const: General: comfortable, no acute distress, alert and awake Nutritional Appearance: average body habitus Orientation/consciousness: patient oriented x3 Resp: Effort & Inspection: normal respiratory effort, able to speak in complete sentences, no respiratory distress and no use of accessory muscles Cardio: Rate: regular rate GI: Inspection: No distended Palpation (GI): Soft to palpation and nontender Skin: Other: multiple scabbed areas on extremities; no erythema; small callous b/l plantar aspect of feet - improving; no fluctuance or induration to suggest deeper infection Neuro: General: patient oriented x3 and moves all extremities Extrem: General: Yes no pedal edema Results Labs 08/16/23 02:51 08/16/23 02:51 Labs: Laboratory Results - last 24 hr 08/16/23 08/16/23 08/16/23 02:51 04:27 06:51 MCV 89.3 MCH 28.0 MCHC 31.3 RDW 15.8 Plt Count 287 MPV 9.3 L Immature Gran % (Auto) 0.5 H Neut % (Auto) 68.6 Lymph % (Auto) 25.2 [place] % (Auto) 4.9 Eos % (Auto) 0.5 Baso % (Auto) 0.3 Lymph # (Auto) 1.6 [place] # (Auto) 0.3 Eos # (Auto) 0.0 Baso # (Auto) 0.0 Abs Immat Gran (auto) 0.03 Absolute Neuts (auto) 4.5 Absolute Nucleated RBC 0.000 Nucleated RBC % (auto) 0.0 Anion Gap 19 Estim Creat Clear Calc 70.6 Estimated GFR > 60 Random Glucose 104 Calcium 9.8 D Vancomycin Trough 8.7 L Urine Opiates Screen POSITIVE H Ur Buprenorphine Scrn Not Detected Ur Oxycodone Screen Positive H Urine Methadone Screen Positive H Urine Fentanyl Screen POSITIVE H Ur Barbiturates Screen Not Detected Ur Phencyclidine Scrn Not Detected Ur Amphetamines Screen Not Detected U Benzodiazepines Scrn Not Detected Urine Cocaine Screen POSITIVE H U Marijuana (THC) Screen Not Detected Assessment and Plan (1) Positive blood culture: Status: Acute Plan This is a 37-year-old woman admitted with MRSA bacteremia. Had labs drawn on 08/05/2023 that were positive and patient was called back to the ER; she then left AMA on the evening of 08/14 and has returned for re-admission MRSA bacteremia 1/2 positive 08/04, repeat negative; repeat 08/15 pending No sepsis Seen by ID, recommended 4 weeks of IV vancomycin- end date September 08 Echocardiogram negative for endocarditis will need PICC, consider holding off until placement is obtained Substance abuse Patient reports using 5 bundles of heroin a day, also uses cocaine and fentanyl Addiction medicine consultation> discussed with Flower, can use Dilaudid and oxycodone as patient has a high tolerance. wean as able Home dose verified and continued- methadone 190 mg daily Foul smelling vaginal discharge BV swab negative Mental health On Seroquel Normocytic anemia H&H above transfusion threshold Smoker Discussed importance of smoking cessation NRT ordered DVT prophylaxis with Lovenox Full code Requires ongoing inpatient hospitalization for treatment of MRSA bacteremia requiring IV antibiotics, echocardiogram and specialty consultation. Due to patient's history of substance abuse she is at high risk for decompensation if bacteremia is not treated. Quality Stroke Does the patient have a stroke diagnosis?: No VTE Prior VTE?: No VTE Risk Level:: Medical - moderate - high VTE Device Contraindication: N/A - Device Ordered VTE Drug Contraindication: N/A - Med Ordered
[2023-08-16] MEDS: Gabapentin 400 MG CAPSULE 800 MG PO ×2 (14:42→20:54)
[2023-08-16] MEDS: Nicotine 21 MG PATCH.TD24 TRANSDERMA (14:42)
[2023-08-16] MEDS: methADONE HCl 20 MG/2 ML ORAL.CONC 190 MG PO (14:43)
[2023-08-16] MEDS: vancomycin HCL 1,500 MG in 0.9 % Sodium Chloride 500 ML 333.33 MG IV (14:43)
[2023-08-16] MEDS: hydrOXYzine HCL 25 MG TABLET PO (14:53)
[2023-08-16 14:56] VITALS: BP 104/66; PULSE 67; RESP 14; O2SAT 100
--- NOTE | 2023-08-16 15:29 | PC.NURSE ---
Patient refused Lovonox shot, either sleeping or eating on stretcher, abx running.
[2023-08-16 20:00] VITALS: BP 102/59; PULSE 63; RESP 18; TEMP 36; O2SAT 97
[2023-08-16] MEDS: QUEtiapine Fumarate 300 MG TABLET PO (20:53)
[2023-08-16] MEDS: Docusate Sodium 100 MG CAPSULE PO (20:53)
[2023-08-16] MEDS: 0.9 % Sodium Chloride Flush 3 ML SYRINGE IVFLUSH (20:54)
[2023-08-16] MEDS: QUEtiapine Fumarate 50 MG TABLET PO (20:54)
[2023-08-16] MEDS: vancomycin HCL 1,000 MG in 0.9 % Sodium Chloride 250 ML 270 MG IV (22:07)
--- NOTE | 2023-08-16 22:48 | PC.NURSE ---
pt's belongings locked up in ER.Called to get belongings brought up to floor WEBBING SUPERVISOR stated have to have public works supervisor get belongings when pt is discharged since they are locked up in the pod.
[2023-08-17] MEDS: oxyCODONE HCl Immed Release 5 MG TABLET PO ×3 (02:52→17:54)
[2023-08-17 03:28] VITALS: BP 100/55; PULSE 70; RESP 16; TEMP 36.2; O2SAT 95
[2023-08-17] MEDS: vancomycin HCL 1,000 MG in 0.9 % Sodium Chloride 250 ML 270 MG IV ×3 (05:30→20:40)
[2023-08-17 07:39] VITALS: BP 106/58; PULSE 62; RESP 12; TEMP 36.3; O2SAT 96
[2023-08-17] MEDS: QUEtiapine Fumarate 50 MG TABLET PO ×2 (08:28→20:41)
[2023-08-17] MEDS: Gabapentin 400 MG CAPSULE 800 MG PO ×3 (08:28→20:41)
[2023-08-17] MEDS: methADONE HCl 20 MG/2 ML ORAL.CONC 190 MG PO (08:28)
[2023-08-17] MEDS: Docusate Sodium 100 MG CAPSULE PO ×2 (08:28→20:41)
[2023-08-17] MEDS: 0.9 % Sodium Chloride Flush 3 ML SYRINGE IVFLUSH ×3 (08:28→20:41)
[2023-08-17] MEDS: hydrOXYzine HCL 25 MG TABLET PO (08:29)
[2023-08-17] MEDS: Nicotine 21 MG PATCH.TD24 TRANSDERMA (08:29)
[2023-08-17 10:04] LABS: MANUAL DIFF FLAG NO
[2023-08-17 10:10] LABS: Basophils Percent Auto 0.4 % (0-2); Eosinophils Absolute Auto 0.3 X10*3/uL (0.0-0.4); Eosinophils Percent Auto 4.8 % (0-4); Hematocrit 30.7 % (37.0-47.0); Hemoglobin 9.5 g/dl (12.0-16.0); Imm Gran Abs Auto 0.01 X10*3/uL (0.00-0.03); Imm Gran Pct Auto 0.2 % (0.0-0.4); Lymphocytes Absolute Auto 2.2 X10*3/uL (1.2-4.9); Lymphocytes Percent Auto 41.3 % (20-40); Mean Corpuscular HGB Conc 30.9 g/dl (31.0-35.0); Mean Corpuscular Hemoglobin 28.5 pg (27.0-33.0); Mean Corpuscular Volume 92.2 fL (80.0-98.0); Mean Platelet Volume 9.2 fL (9.4-12.3); Monocytes Absolute Auto 0.4 X10*3/uL (0.1-1.2); Monocytes Percent Auto 7.6 % (2-11); Neutrophils Absolute Auto 2.4 x10*3/uL (2.0-8.3); Neutrophils Percent Auto 45.7 % (45-73); Platelet Count 244 X10*3/uL (160-400); Red Blood Count 3.33 X10*6/uL (4.20-5.50); Red Cell Distribution Width 15.9 % (11.0-16.0); White Blood Count 5.2 X10*3/uL (4.8-10.8)
[2023-08-17 10:26] LABS: Vancomycin Random 21.8 mcg/mL (15-20)
[2023-08-17 10:28] LABS: Creatinine Clr Calc Pharmacy 90.7; Estimated Glomerular Filt Rate > 60
[2023-08-17 10:29] LABS: Anion Gap 13 (12-20); Blood Urea Nitrogen 9 mg/dL (9-16); Calcium 8.9 mg/dL (8.4-10.2); Carbon Dioxide 25 mmol/L (22-29); Chloride 105 mmol/L (96-108); Estimated Glomerular Filt Rate > 60; Glucose Random 101 mg/dL (60-115); Sodium 139 mmol/L (135-145)
[2023-08-17 10:42] LABS: Potassium 3.7 mmol/L (3.3-5.1)
[2023-08-17] MEDS: Nicotine Polacrilex 2 MG GUM 4 MG BUCCAL ×2 (11:53→16:11)
[2023-08-17 12:22] LABS: Vancomycin Random 16.6 mcg/mL (15-20)
--- NOTE | 2023-08-17 12:32 | MHC.CM.PN ---
Addendum entered by Delilah Hollingsworth 08/17/23 14:59: PT EXPECTED TO DC TOMORROW, HC HAS CLOSED AND DID NOT CONFIRM PTS GUEST DOSING ARRANGEMENTS WITH [facility] LINE PLACEMENT ALSO STILL PENDING Addendum entered by Delilah Hollingsworth 08/17/23 12:36: PT LIVES WITH HER GRANDMOTHER AND IS INDEPENDENT AT BASELINE SHE GOES TO [facility] FOR MMTP Original Note: PT AWAITING LINE PLACEMENT AND DC TO SNF FOR LT IV ABX [facility]ANEL HAD A BED ON THURSDAY, HOWEVER THEY HAVE NOT CONFIRMED IT IS STILL AVAILABLE CM SPOKE TO CHIQUITA AT [facility], SHE REPORTS SHE WILL SEND GUEST DOSING REQUEST TO [facility] IN [place] TODAY PT SIGNED A [facility]I FOR BOTH HC AND [facility] WHICH WERE FAXED TO [facility] AT [phone] PT WILL DC PENDING LINE AND GUEST DOSING BLS TRANSPORT PT REPORTS SOMEONE WILL BE BRINGING HER CLOTHES HERE PRIOR TO DC
--- NOTE | 2023-08-17 13:00 | HE.PHANOTE ---
RE: VANCO DOSING Random came back as 16.6. Will continue with dose of 1000 mg q8h, next random is scheduled for 08/18/23 @1200.
--- NOTE | 2023-08-17 14:18 | P.PNIM_ITS ---
Subjective Subjective Date of Service: 08/17/23 Review of Systems Follow up MRSA bacteremia doing better mild anxiousness Physical Exam 2 Vital Signs: Vital Signs: Last Vital Signs Temp 97.3 F 08/17/23 07:39 Pulse 62 08/17/23 07:39 Resp 12 08/17/23 07:39 BP 106/58 L 08/17/23 07:39 Pulse Ox 96 08/17/23 07:39 O2 Del Method Room Air 08/17/23 07:39 BMI result Body Mass Index 22.9 Appearing in no acute distress lung sounds are clear to auscultation heart regular rate rhythm, clear S1, S2 positive bowel sounds, abdomen is soft, nontender neuro patient is alert x3, no focal deficits Objective Data Active Medications Acetaminophen (Acetaminophen 325 Mg Tablet) 650 mg PO Q6H PRN PRN Reason: Pain, Mild (Pain Scale 1-3) Benzonatate (Benzonatate 100 Mg Capsule) 100 mg PO TID PRN PRN Reason: Cough Docusate Sodium (Docusate Sodium 100 Mg Capsule) 100 mg PO BID [facility] Last Admin: 08/17/23 08:28 Dose: 100 mg Documented By: APOORVA Enoxaparin Sodium (Enoxaparin Sodium 40 Mg/0.4 Ml Syringe) 40 mg SUBCUT Q24H [facility] Last Admin: 08/16/23 14:55 Dose: Not Given Documented By: STEVE Non-Admin Reason: Patient Refused Gabapentin (Gabapentin 400 Mg Capsule) 800 mg PO TID [facility] Last Admin: 08/17/23 14:04 Dose: 800 mg Documented By: APOORVA Hydroxyzine HCl (Hydroxyzine Hcl 25 Mg Tablet) 25 mg PO BID PRN PRN Reason: Anxiety Last Admin: 08/17/23 08:29 Dose: 25 mg Documented By: APOORVA Vancomycin HCl 1,000 mg/ (Sodium Chloride) 270 mls @ 270 mls/hr IV Q8H [facility] Last Admin: 08/17/23 14:02 Dose: 270 mls/hr Documented By: APOORVA Methadone HCl (Methadone Hcl 20 Mg/2 Ml Oral.Conc) 190 mg PO DAILY [facility] Last Admin: 08/17/23 08:28 Dose: 190 mg Documented By: APOORVA Nicotine (Nicotine 21 Mg Patch.Td24) 21 mg TRANSDERMA DAILY [facility] Last Admin: 08/17/23 08:29 Dose: 21 mg Documented By: APOORVA Nicotine Polacrilex (Nicotine Polacrilex 2 Mg Gum) 4 mg BUCCAL QID PRN PRN Reason: Nicotine Cravings Last Admin: 08/17/23 11:53 Dose: 4 mg Documented By: APOORVA Oxycodone HCl (Oxycodone Hcl Immed Release 5 Mg Tablet) 5 mg PO Q6H PRN PRN Reason: Pain, Moderate(Pain Scale 4-6) Last Admin: 08/17/23 11:54 Dose: 5 mg Documented By: APOORVA Pharmacy Consult (Consult Rx Vancomycin Dosing) 1 each MISCELLANE DAILY PRN PRN Reason: Consult order Quetiapine Fumarate (Quetiapine Fumarate 50 Mg Tablet) 50 mg PO BID [facility] Last Admin: 08/17/23 08:28 Dose: 50 mg Documented By: APOORVA Quetiapine Fumarate (Quetiapine Fumarate 300 Mg Tablet) 300 mg PO BEDTIME [facility] Last Admin: 08/16/23 20:53 Dose: 300 mg Documented By: CHAVA Sodium Chloride (0.9 % Sodium Chloride Flush 3 Ml Syringe) 3 ml IVFLUSH QSHIFT [facility] Last Admin: 08/17/23 08:28 Dose: 3 ml Documented By: APOORVA Labs 08/17/23 09:57 08/17/23 09:57 Labs: Laboratory Results - last 24 hr 08/17/23 08/17/23 08/17/23 09:57 09:57 09:57 MCV 92.2 MCH 28.5 MCHC 30.9 L RDW 15.9 Plt Count 244 MPV 9.2 L Immature Gran % (Auto) 0.2 Neut % (Auto) 45.7 Lymph % (Auto) 41.3 H [place] % (Auto) 7.6 Eos % (Auto) 4.8 H Baso % (Auto) 0.4 Lymph # (Auto) 2.2 [place] # (Auto) 0.4 Eos # (Auto) 0.3 Baso # (Auto) 0.0 Abs Immat Gran (auto) 0.01 Absolute Neuts (auto) 2.4 Absolute Nucleated RBC 0.000 Nucleated RBC % (auto) 0.0 Anion Gap 13 Estim Creat Clear Calc 92.0 90.7 Estimated GFR > 60 > 60 Random Glucose 101 Calcium 8.9 D Random Vancomycin 21.8 H 08/17/23 12:03 MCV MCH MCHC RDW Plt Count MPV Immature Gran % (Auto) Neut % (Auto) Lymph % (Auto) [place] % (Auto) Eos % (Auto) Baso % (Auto) Lymph # (Auto) [place] # (Auto) Eos # (Auto) Baso # (Auto) Abs Immat Gran (auto) Absolute Neuts (auto) Absolute Nucleated RBC Nucleated RBC % (auto) Anion Gap Estim Creat Clear Calc Estimated GFR Random Glucose Calcium Random Vancomycin 16.6 Assessment and Plan (1) Opioid use disorder, moderate, dependence: Status: Acute (2) Positive blood culture: Status: Acute Plan This is a 37-year-old woman admitted with MRSA bacteremia. Had labs drawn on 08/05/2023 that were positive and patient was called back to the ER; she then left AMA on the evening of 08/14 and has returned for re-admission MRSA bacteremia 1/2 positive 08/04, repeat negative; repeat 08/15 pending No sepsis Seen by ID, recommended 4 weeks of IV vancomycin- end date September 08 Echocardiogram negative for endocarditis PICC line ordered Substance abuse Patient reports using 5 bundles of heroin a day, also uses cocaine and fentanyl Addiction medicine consultation> discussed with Flower, can use Dilaudid and oxycodone as patient has a high tolerance. wean as able Home dose verified and continued- methadone 190 mg daily Foul smelling vaginal discharge BV swab negative Mental health On Seroquel Normocytic anemia H&H above transfusion threshold Smoker Discussed importance of smoking cessation NRT ordered DVT prophylaxis with Lovenox Attending Dr. Mclean Full code DISPO plan for [facility] placement for abx Requires ongoing inpatient hospitalization for treatment of MRSA bacteremia requiring IV antibiotics, echocardiogram and specialty consultation. Due to patient's history of substance abuse she is at high risk for decompensation if bacteremia is not treated. Quality Stroke Does the patient have a stroke diagnosis?: No VTE Prior VTE?: No VTE Risk Level:: Medical - moderate - high VTE Device Contraindication: N/A - Device Ordered VTE Drug Contraindication: N/A - Med Ordered
[2023-08-17 16:00] VITALS: BP 126/87; PULSE 66; RESP 20; TEMP 36.2; O2SAT 98
[2023-08-17] MEDS: Magnesium Hydrox/Alum Hydrox 30 ML ORAL.SUSP PO (16:10)
[2023-08-17] MEDS: LORazepam 0.5 MG TABLET 0.25 MG PO (16:10)
[2023-08-17] MEDS: Enoxaparin Sodium 40 MG/0.4 ML SYRINGE SUBCUT (16:13)
[2023-08-17 19:25] VITALS: BP 131/79; PULSE 80; RESP 18; TEMP 36.6; O2SAT 99
[2023-08-17] MEDS: QUEtiapine Fumarate 300 MG TABLET PO (20:41)
[2023-08-18 03:32] VITALS: BP 101/62; PULSE 92; RESP 18; TEMP 36.4; O2SAT 98
[2023-08-18] MEDS: vancomycin HCL 1,000 MG in 0.9 % Sodium Chloride 250 ML 270 MG IV (05:16)
[2023-08-18] MEDS: Omeprazole 20 MG CAPSULE.DR PO (05:16)
[2023-08-18] MEDS: oxyCODONE HCl Immed Release 5 MG TABLET PO ×3 (05:25→19:42)
[2023-08-18] MEDS: LORazepam 0.5 MG TABLET 0.25 MG PO ×2 (05:32→18:14)
[2023-08-18] MEDS: Acetaminophen 325 MG TABLET 650 MG PO ×3 (05:32→19:42)
[2023-08-18 06:37] LABS: Estimated Glomerular Filt Rate > 60
[2023-08-18 07:38] VITALS: BP 109/56; PULSE 72; RESP 17; TEMP 36.7; O2SAT 97
[2023-08-18] MEDS: Nicotine 21 MG PATCH.TD24 TRANSDERMA (09:41)
[2023-08-18] MEDS: Docusate Sodium 100 MG CAPSULE PO ×2 (09:41→20:23)
[2023-08-18] MEDS: QUEtiapine Fumarate 50 MG TABLET PO ×2 (09:41→20:23)
[2023-08-18] MEDS: Gabapentin 400 MG CAPSULE 800 MG PO ×3 (09:41→20:23)
[2023-08-18] MEDS: Nicotine Polacrilex 2 MG GUM 4 MG BUCCAL (09:42)
[2023-08-18] MEDS: methADONE HCl 20 MG/2 ML ORAL.CONC 190 MG PO (09:42)
[2023-08-18] MEDS: 0.9 % Sodium Chloride Flush 3 ML SYRINGE IVFLUSH ×3 (09:50→20:24)
--- NOTE | 2023-08-18 11:59 | MHC.CM.PN ---
pt dc cancelled for today as pt did not have picc placed picc placement will be tomorrow mds faxed today dc planned for tomorrow will need last dose letter
--- NOTE | 2023-08-18 13:08 | P.PNIM_ITS ---
Subjective Subjective Date of Service: 08/18/23 Review of Systems Follow up MRSA bacteremia doing better mild anxiousness Physical Exam 2 Vital Signs: Vital Signs: Last Vital Signs Temp 98.0 F 08/18/23 07:38 Pulse 72 08/18/23 07:38 Resp 17 08/18/23 07:38 BP 109/56 L 08/18/23 07:38 Pulse Ox 97 08/18/23 07:38 O2 Del Method Room Air 08/18/23 07:38 BMI result Body Mass Index 22.9 Appearing in no acute distress lung sounds are clear to auscultation heart regular rate rhythm, clear S1, S2 positive bowel sounds, abdomen is soft, nontender neuro patient is alert x3, no focal deficits Objective Data Active Medications Acetaminophen (Acetaminophen 325 Mg Tablet) 650 mg PO Q6H PRN PRN Reason: Pain, Mild (Pain Scale 1-3) Last Admin: 08/18/23 05:32 Dose: 650 mg Documented By: CHE Al Hydroxide/Mg Hydroxide (Magnesium Hydrox/Alum Hydrox 30 Ml Oral.Susp) 30 ml PO Q6H PRN PRN Reason: Indigestion Last Admin: 08/17/23 16:10 Dose: 30 ml Documented By: APOORVA Benzonatate (Benzonatate 100 Mg Capsule) 100 mg PO TID PRN PRN Reason: Cough Docusate Sodium (Docusate Sodium 100 Mg Capsule) 100 mg PO BID [facility] Last Admin: 08/18/23 09:41 Dose: 100 mg Documented By: APOORVA Enoxaparin Sodium (Enoxaparin Sodium 40 Mg/0.4 Ml Syringe) 40 mg SUBCUT Q24H [facility] Last Admin: 08/17/23 16:13 Dose: 40 mg Documented By: APOORVA Gabapentin (Gabapentin 400 Mg Capsule) 800 mg PO TID [facility] Last Admin: 08/18/23 09:41 Dose: 800 mg Documented By: APOORVA Hydroxyzine HCl (Hydroxyzine Hcl 25 Mg Tablet) 25 mg PO BID PRN PRN Reason: Anxiety Last Admin: 08/17/23 08:29 Dose: 25 mg Documented By: APOORVA Vancomycin HCl 1,000 mg/ (Sodium Chloride) 270 mls @ 270 mls/hr IV Q8H [facility] Last Infusion: 08/18/23 06:16 Dose: Infused Documented By: CHE Lorazepam (Lorazepam 0.5 Mg Tablet) 0.25 mg PO Q8H PRN PRN Reason: anxiety/restlessness Last Admin: 08/18/23 05:32 Dose: 0.25 mg Documented By: CHE Methadone HCl (Methadone Hcl 20 Mg/2 Ml Oral.Conc) 190 mg PO DAILY [facility] Last Admin: 08/18/23 09:42 Dose: 190 mg Documented By: APOORVA Nicotine (Nicotine 21 Mg Patch.Td24) 21 mg TRANSDERMA DAILY [facility] Last Admin: 08/18/23 09:41 Dose: 21 mg Documented By: APOORVA Nicotine Polacrilex (Nicotine Polacrilex 2 Mg Gum) 4 mg BUCCAL QID PRN PRN Reason: Nicotine Cravings Last Admin: 08/18/23 09:42 Dose: 4 mg Documented By: APOORVA Omeprazole (Omeprazole 20 Mg Capsule.Dr) 20 mg PO DAILY@0630 [facility] Last Admin: 08/18/23 05:16 Dose: 20 mg Documented By: CHE Oxycodone HCl (Oxycodone Hcl Immed Release 5 Mg Tablet) 5 mg PO Q6H PRN PRN Reason: Pain, Moderate(Pain Scale 4-6) Last Admin: 08/18/23 05:25 Dose: 5 mg Documented By: CHE Pharmacy Consult (Consult Rx Vancomycin Dosing) 1 each MISCELLANE DAILY PRN PRN Reason: Consult order Quetiapine Fumarate (Quetiapine Fumarate 50 Mg Tablet) 50 mg PO BID [facility] Last Admin: 08/18/23 09:41 Dose: 50 mg Documented By: APOORVA Quetiapine Fumarate (Quetiapine Fumarate 300 Mg Tablet) 300 mg PO BEDTIME [facility] Last Admin: 08/17/23 20:41 Dose: 300 mg Documented By: CHE Sodium Chloride (0.9 % Sodium Chloride Flush 3 Ml Syringe) 3 ml IVFLUSH QSHIFT [facility] Last Admin: 08/18/23 09:50 Dose: 3 ml Documented By: APOORVA Labs 08/17/23 09:57 08/18/23 05:32 Labs: Laboratory Results - last 24 hr 08/18/23 05:32 Hold Purple Top SEE NOTE Estim Creat Clear Calc 86.0 Estimated GFR > 60 Microbiology Microbiology Results: Microbiology 08/16/23 13:46 Blood Culture - Preliminary Blood - Venous No growth after 24 hours. 08/16/23 13:47 Blood Culture - Preliminary Blood - Venous No growth after 24 hours. Assessment and Plan (1) Opioid use disorder, moderate, dependence: Status: Acute (2) Positive blood culture: Status: Acute Plan This is a 37-year-old woman admitted with MRSA bacteremia. Had labs drawn on 08/05/2023 that were positive and patient was called back to the ER; she then left AMA on the evening of 08/14 and has returned for re-admission MRSA bacteremia 1/2 positive 08/04, repeat negative; repeat 08/15 neg after 24hrs No sepsis Seen by ID, recommended 4 weeks of IV vancomycin- end date September 08 Echocardiogram negative for endocarditis PICC line ordered Substance abuse Patient reports using 5 bundles of heroin a day, also uses cocaine and fentanyl Addiction medicine consultation> discussed with Flower, can use Dilaudid and oxycodone as patient has a high tolerance. wean as able Home dose verified and continued- methadone 190 mg daily Foul smelling vaginal discharge BV swab negative Mental health On Seroquel Normocytic anemia H&H above transfusion threshold Smoker Discussed importance of smoking cessation NRT ordered DVT prophylaxis with Lovenox Attending Dr. Mclean Full code DISPO plan for [facility] placement for abx Requires ongoing inpatient hospitalization for treatment of MRSA bacteremia requiring IV antibiotics, echocardiogram and specialty consultation. Due to patient's history of substance abuse she is at high risk for decompensation if bacteremia is not treated. Quality Stroke Does the patient have a stroke diagnosis?: No VTE Prior VTE?: No VTE Risk Level:: Medical - moderate - high VTE Device Contraindication: N/A - Device Ordered VTE Drug Contraindication: N/A - Med Ordered
[2023-08-18 14:21] LABS: Vancomycin Random 19.5 mcg/mL (15-20)
[2023-08-18 14:58] VITALS: BP 115/71; PULSE 68; RESP 16; TEMP 36.6; O2SAT 97
[2023-08-18] MEDS: Enoxaparin Sodium 40 MG/0.4 ML SYRINGE SUBCUT (15:26)
[2023-08-18] MEDS: Mag&Al/Sim/Diphenhyd/Lidocaine 10 ML ORAL.SUSP PO ×2 (15:27→19:43)
--- NOTE | 2023-08-18 15:28 | MHC.CM.PN ---
beth fierro pt will not get a picc now till
[2023-08-18 19:29] VITALS: BP 122/77; PULSE 78; RESP 17; TEMP 36.7; O2SAT 95
[2023-08-18] MEDS: QUEtiapine Fumarate 300 MG TABLET PO (20:23)
[2023-08-18] MEDS: vancomycin HCL 750 MG in 0.9 % Sodium Chloride 250 ML 265 MG IV (22:26)
--- NOTE | 2023-08-18 23:47 | PC.NURSE ---
only 1/2 bag of IV vanco infused. IV was placed today by ultra sound kept beeping down stream occlusion.Tried to pull back and adjust iv was able to flush then would continue to beep.Ehs Manager in to adjust IV pt getting frustrated with us wanted us to leave the room.
[2023-08-19 02:56] VITALS: BP 130/85; PULSE 71; RESP 17; TEMP 36.3; O2SAT 95
[2023-08-19] MEDS: Acetaminophen 325 MG TABLET 650 MG PO ×2 (02:58→15:35)
[2023-08-19] MEDS: oxyCODONE HCl Immed Release 5 MG TABLET PO ×3 (02:59→21:04)
[2023-08-19] MEDS: Mag&Al/Sim/Diphenhyd/Lidocaine 10 ML ORAL.SUSP PO ×4 (03:02→16:44)
[2023-08-19] MEDS: Omeprazole 20 MG CAPSULE.DR PO (05:46)
--- NOTE | 2023-08-19 05:47 | PC.NURSE ---
Pt's IV put in yesterday in right arm by ultra sound not working pt refused to have new IV inserted 0600 IV vanco not given. notified
[2023-08-19 07:35] VITALS: BP 146/93; PULSE 77; RESP 17; TEMP 36.4; O2SAT 96
[2023-08-19] MEDS: Nicotine 21 MG PATCH.TD24 TRANSDERMA (08:05)
[2023-08-19] MEDS: Gabapentin 400 MG CAPSULE 800 MG PO ×3 (08:06→21:04)
[2023-08-19] MEDS: methADONE HCl 20 MG/2 ML ORAL.CONC 190 MG PO (08:06)
[2023-08-19] MEDS: Docusate Sodium 100 MG CAPSULE PO ×2 (08:06→21:04)
[2023-08-19] MEDS: QUEtiapine Fumarate 50 MG TABLET PO ×2 (08:06→21:04)
[2023-08-19] MEDS: 0.9 % Sodium Chloride Flush 3 ML SYRINGE IVFLUSH ×3 (08:11→21:06)
--- NOTE | 2023-08-19 09:53 | HO.PM.IMPN ---
Subjective Subjective Date of Service: 08/19/23 Review of Systems Follow up MRSA bacteremia doing better mild anxiousness Physical Exam Vital Signs: Vital Signs: Last Vital Signs Temp 97.5 F 08/19/23 07:35 Pulse 77 08/19/23 07:35 Resp 17 08/19/23 07:35 BP 146/93 H 08/19/23 07:35 Pulse Ox 96 08/19/23 07:35 O2 Del Method Room Air 08/19/23 07:35 BMI result Body Mass Index 22.9 Appearing in no acute distress lung sounds are clear to auscultation heart regular rate rhythm, clear S1, S2 positive bowel sounds, abdomen is soft, nontender neuro patient is alert x3, no focal deficits Objective Data Active Medications Acetaminophen (Acetaminophen 325 Mg Tablet) 650 mg PO Q6H PRN PRN Reason: Pain, Mild (Pain Scale 1-3) Last Admin: 08/19/23 02:58 Dose: 650 mg Documented By: CHAVA Al Hydroxide/Mg Hydroxide (Magnesium Hydrox/Alum Hydrox 30 Ml Oral.Susp) 30 ml PO Q6H PRN PRN Reason: Indigestion Last Admin: 08/17/23 16:10 Dose: 30 ml Documented By: APOORVA Benzonatate (Benzonatate 100 Mg Capsule) 100 mg PO TID PRN PRN Reason: Cough Docusate Sodium (Docusate Sodium 100 Mg Capsule) 100 mg PO BID [facility] Last Admin: 08/19/23 08:06 Dose: 100 mg Documented By: DAVID Enoxaparin Sodium (Enoxaparin Sodium 40 Mg/0.4 Ml Syringe) 40 mg SUBCUT Q24H [facility] Last Admin: 08/18/23 15:26 Dose: 40 mg Documented By: APOORVA Gabapentin (Gabapentin 400 Mg Capsule) 800 mg PO TID [facility] Last Admin: 08/19/23 08:06 Dose: 800 mg Documented By: DAVID Hydroxyzine HCl (Hydroxyzine Hcl 25 Mg Tablet) 25 mg PO BID PRN PRN Reason: Anxiety Last Admin: 08/17/23 08:29 Dose: 25 mg Documented By: APOORVA Vancomycin HCl 750 mg/ Sodium (Chloride) 265 mls @ 265 mls/hr IV Q8H [facility] Last Admin: 08/19/23 05:46 Dose: Not Given Documented By: CHAVA Non-Admin Reason: Patient Refused Lidocaine/Diphenhydr/Alum/Mg/Simeth (Mag&Al/Sim/Diphenhyd/Lidocaine 10 Ml Oral.Susp) 10 ml PO Q4H PRN; Protocol PRN Reason: tooth pain Last Admin: 08/19/23 08:06 Dose: 10 ml Documented By: DAVID Lorazepam (Lorazepam 0.5 Mg Tablet) 0.25 mg PO Q8H PRN PRN Reason: anxiety/restlessness Last Admin: 08/18/23 18:14 Dose: 0.25 mg Documented By: APOORVA Methadone HCl (Methadone Hcl 20 Mg/2 Ml Oral.Conc) 190 mg PO DAILY [facility] Last Admin: 08/19/23 08:06 Dose: 190 mg Documented By: DAVID Nicotine (Nicotine 21 Mg Patch.Td24) 21 mg TRANSDERMA DAILY [facility] Last Admin: 08/19/23 08:05 Dose: 21 mg Documented By: DAVID Nicotine Polacrilex (Nicotine Polacrilex 2 Mg Gum) 4 mg BUCCAL QID PRN PRN Reason: Nicotine Cravings Last Admin: 08/18/23 09:42 Dose: 4 mg Documented By: APOORVA Omeprazole (Omeprazole 20 Mg Capsule.Dr) 20 mg PO DAILY@0630 [facility] Last Admin: 08/19/23 05:46 Dose: 20 mg Documented By: CHAVA Oxycodone HCl (Oxycodone Hcl Immed Release 5 Mg Tablet) 5 mg PO Q6H PRN PRN Reason: Pain, Moderate(Pain Scale 4-6) Last Admin: 08/19/23 02:59 Dose: 5 mg Documented By: CHAVA Pharmacy Consult (Consult Rx Vancomycin Dosing) 1 each MISCELLANE DAILY PRN PRN Reason: Consult order Quetiapine Fumarate (Quetiapine Fumarate 50 Mg Tablet) 50 mg PO BID [facility] Last Admin: 08/19/23 08:06 Dose: 50 mg Documented By: DAVID Quetiapine Fumarate (Quetiapine Fumarate 300 Mg Tablet) 300 mg PO BEDTIME [facility] Last Admin: 08/18/23 20:23 Dose: 300 mg Documented By: CHAVA Sodium Chloride (0.9 % Sodium Chloride Flush 3 Ml Syringe) 3 ml IVFLUSH QSHIFT [facility] Last Admin: 08/19/23 08:11 Dose: 3 ml Documented By: DAVID Labs 08/17/23 09:57 08/18/23 05:32 Labs: Laboratory Results - last 24 hr 08/18/23 11:54 Random Vancomycin 19.5 Microbiology Microbiology Results: Microbiology 08/16/23 13:46 Blood Culture - Preliminary Blood - Venous No growth after 48 hours. 08/16/23 13:47 Blood Culture - Preliminary Blood - Venous No growth after 48 hours. Assessment and Plan (1) Opioid use disorder, moderate, dependence: Status: Inactive (2) Positive blood culture: Status: Acute Plan This is a 37-year-old woman admitted with MRSA bacteremia. Had labs drawn on 08/05/2023 that were positive and patient was called back to the ER; she then left AMA on the evening of 08/14 and has returned for re-admission MRSA bacteremia 1/2 positive 08/04, repeat negative; repeat 08/15 neg after 24hrs No sepsis Seen by ID, recommended 4 weeks of IV vancomycin- end date September 08 Echocardiogram negative for endocarditis PICC line ordered Substance abuse Patient reports using 5 bundles of heroin a day, also uses cocaine and fentanyl Addiction medicine consultation> discussed with [facility], can use Dilaudid and oxycodone as patient has a high tolerance. wean as able Home dose verified and continued- methadone 190 mg daily Foul smelling vaginal discharge BV swab negative Mental health On Seroquel Normocytic anemia H&H above transfusion threshold Smoker Discussed importance of smoking cessation NRT ordered DVT prophylaxis with Lovenox Attending Dr. Mclean Full code DISPO plan for [facility] placement for abx Requires ongoing inpatient hospitalization for treatment of MRSA bacteremia requiring IV antibiotics, echocardiogram and specialty consultation. Due to patient's history of substance abuse she is at high risk for decompensation if bacteremia is not treated. Quality Stroke Does the patient have a stroke diagnosis?: No VTE Prior VTE?: No VTE Risk Level:: Medical - moderate - high VTE Device Contraindication: N/A - Device Ordered VTE Drug Contraindication: N/A - Med Ordered
--- NOTE | 2023-08-19 10:21 | PM.DS ---
DS: Providers Provider Date of Service: 08/19/23 Date of admission: 08/16/23 12:25 Primary care physician: BHARAT Coleman DS: Diagnosis Discharge Diagnosis (1) Opioid use disorder, moderate, dependence: Status: Inactive (2) Positive blood culture: Status: Acute DS: Summary Hospital Course Hospital Course: From H&P on the day of admission 37-year-old woman with a history of bipolar disorder, polysubstance abuse presented to the ER with abnormal blood work. She was in the ER on 08/04 and 514. She was called today due to a positive blood culture results with MRSA. She denied any fever, chills, nausea, vomiting, chest pain, shortness for breath. She has multiple injection sites to her arms and multiple scabbed areas to her legs. She is hemodynamically stable, labs all within acceptable limits. She was started on Rocephin, doxycycline, Flagyl, vancomycin in the ER. She will be admitted for further management and treatment of MRSA bacteremia. 37-year-old woman with a history of substance abuse treated for MRSA bacteremia with no evidence of endocarditis or sepsis. 1/2 blood cultures positive, repeat on 08/05/23 negative. midline placement for total 4 weeks of IV antibiotics with vancomycin, end date September 03 2023. [facility] for antibiotic administration through midline catheter. History of substance abuse. Patient reports using fine bundles of heroin a day along with cocaine and fentanyl. Seen and evaluated by addiction medicine team. Continued on methadone 190 mg daily Time Attestation Discharge Coordination Time (in mins): 40 Quality: Safe Use of Opioids Does Pt have an Active Cancer Diagnosis on the Problem List?: No Quality: Stroke Does the patient have a stroke diagnosis?: No Physical Exam Vital Signs: Vital Signs: Last Vital Signs Temp 97.5 F 08/19/23 07:35 Pulse 77 08/19/23 07:35 Resp 17 08/19/23 07:35 BP 146/93 H 08/19/23 07:35 Pulse Ox 96 08/19/23 07:35 O2 Del Method Room Air 08/19/23 07:35 BMI result Body Mass Index 22.9 Appearing in no acute distress head is normocephalic atraumatic eyes pupils are PERRLA sclera is anicteric mouth throat mucous membranes are intact and moist neck is supple no lymphadenopathy, no JVD noted lung sounds are clear to auscultation heart regular rate rhythm, clear S1, S2 positive bowel sounds, abdomen is soft, nontender neuro patient is alert x3, no focal deficits Multiple scabbed areas on legs and arms from picking, injection sites noted to both forearms DS: Data Data Completed and Pending Completed studies during hospitalization [Text1]: Procedures Detoxification Services for Substance Abuse Treatment (10/05/20) Labs on day of discharge: Laboratory Results - last 24 hr 08/18/23 11:54 Random Vancomycin 19.5 Preliminary micro results at discharge 08/16/23 13:46 Blood Culture - Preliminary Blood - Venous No growth after 48 hours. 08/16/23 13:47 Blood Culture - Preliminary Blood - Venous No growth after 48 hours. Discharge Plan Discharge Anticipated Discharge Date/Time: 08/18/23 10:12 Patient Disposition: Xfer Inpatient Rehab Fac Discharge Diagnosis: MRSA bacteremia Referrals: [facility] [Other] - 1 Week Discharge Medications: New omeprazole 20 mg Capsule,Delayed Release(Dr/Ec) 20 mg PO DAILY@0630 Qty: 30 0RF vancomycin in 0.9 % sodium chl 750 mg/150 mL piggyback 750 mg IV Q8H Continued nicotine (polacrilex) 4 mg gum 4 mg PO QID PRN (Reason: Nicotine Cravings) nicotine 21 mg/24 hr patch 24 hour 1 patch topical DAILY quetiapine 50 mg tablet extended release 24 hr 50 mg PO DAILY hydroxyzine HCl 25 mg tablet 25 mg PO BID PRN (Reason: Anxiety) ibuprofen 600 mg tablet 600 mg PO BID PRN (Reason: Pain) quetiapine 300 mg tablet 300 mg PO BEDTIME gabapentin 800 mg tablet 800 mg PO TID methadone [Methadose] 10 mg/mL Concentrate 190 mg PO DAILY Discharge Orders: Discharge Order (Routine); Ordered 08/19/23 Ordered By: Gwen Fine Diet: Advance to usual diet Activity on Discharge: As tolerated Stand Alone Forms: Patient Portal Discharge page Print Language: Dutch Care Plan Goals: Transfer to [place] for IV antibiotic administration for total of 4 weeks from 08/16/2023 weeks end date 09/03/2023 RN may remove midline after last dose Health Concerns: MRSA bacteremia Plan of Treatment: Take all medications as prescribed Do not use street drugs Assessment: See discharge summary
[2023-08-19] MEDS: LORazepam 0.5 MG TABLET 0.25 MG PO (12:01)
--- NOTE | 2023-08-19 13:16 | MHC.CM.PN ---
This service writer spoke w/ hosea @ [facility], confirmed they can take pt w/ a midline for the vanco. SW will coordinate an alternate time for d/c today after midline insertion & 1st dose administration.
--- NOTE | 2023-08-19 14:00 | MHC.CM.PN ---
[facility] accepting pt with a midline last dose letter sent thru [facility] amna rebooked for 5 [facility]
[2023-08-19 14:31] LABS: Creatinine Clr Calc Pharmacy 90.7; Estimated Glomerular Filt Rate > 60; Vancomycin Random 3.1 mcg/mL (15-20)
[2023-08-19] MEDS: LORazepam 0.5 MG TABLET 0.75 MG PO (14:35)
[2023-08-19 15:03] VITALS: BP 160/90; PULSE 70; RESP 18; TEMP 36.1; O2SAT 98
--- NOTE | 2023-08-19 16:07 | MHC.CM.PN ---
message received 3:45 from [facility] stating they will not take pt with a midline if she is on vanco ,dir of nursing,spoke with cm she stated that it was in their policy not to give vanco in a midline or peripheral line .amna leonarded ,sri mckeon
--- NOTE | 2023-08-19 16:16 | P.PNIM_ITS ---
Subjective Subjective Date of Service: 08/19/23 Review of Systems Follow up MRSA bacteremia doing better mild anxiousness midline placed Physical Exam 2 Vital Signs: Vital Signs: Last Vital Signs Temp 97.0 F 08/19/23 15:03 Pulse 70 08/19/23 15:03 Resp 18 08/19/23 15:03 BP 160/90 H 08/19/23 15:03 Pulse Ox 98 08/19/23 15:03 O2 Del Method Room Air 08/19/23 15:03 BMI result Body Mass Index 22.9 Appearing in no acute distress lung sounds are clear to auscultation heart regular rate rhythm, clear S1, S2 positive bowel sounds, abdomen is soft, nontender neuro patient is alert x3, no focal deficits Objective Data Active Medications Acetaminophen (Acetaminophen 325 Mg Tablet) 650 mg PO Q6H PRN PRN Reason: Pain, Mild (Pain Scale 1-3) Last Admin: 08/19/23 15:35 Dose: 650 mg Documented By: DAVID Al Hydroxide/Mg Hydroxide (Magnesium Hydrox/Alum Hydrox 30 Ml Oral.Susp) 30 ml PO Q6H PRN PRN Reason: Indigestion Last Admin: 08/17/23 16:10 Dose: 30 ml Documented By: APOORVA Benzonatate (Benzonatate 100 Mg Capsule) 100 mg PO TID PRN PRN Reason: Cough Docusate Sodium (Docusate Sodium 100 Mg Capsule) 100 mg PO BID [facility]CLUD[facility] Last Admin: 08/19/23 08:06 Dose: 100 mg Documented By: DAVID Enoxaparin Sodium (Enoxaparin Sodium 40 Mg/0.4 Ml Syringe) 40 mg SUBCUT Q24H [facility]CLUD[facility] Last Admin: 08/19/23 15:38 Dose: Not Given Documented By: DAVID Non-Admin Reason: Patient Refused Gabapentin (Gabapentin 400 Mg Capsule) 800 mg PO TID [facility]CLUD[facility] Last Admin: 08/19/23 15:35 Dose: 800 mg Documented By: DAVID Hydroxyzine HCl (Hydroxyzine Hcl 25 Mg Tablet) 25 mg PO BID PRN PRN Reason: Anxiety Last Admin: 08/17/23 08:29 Dose: 25 mg Documented By: APOORVA Vancomycin HCl 1,500 mg/ (Sodium Chloride) 500 mls @ 333.333 mls/hr IV Q12H COUNT INCLUDES THE [facility] Lidocaine/Diphenhydr/Alum/Mg/Simeth (Mag&Al/Sim/Diphenhyd/Lidocaine 10 Ml Oral.Susp) 10 ml PO Q4H PRN; Protocol PRN Reason: tooth pain Last Admin: 08/19/23 12:02 Dose: 10 ml Documented By: DAVID Lorazepam (Lorazepam 0.5 Mg Tablet) 0.25 mg PO Q8H PRN PRN Reason: anxiety/restlessness Last Admin: 08/19/23 12:01 Dose: 0.25 mg Documented By: DAVID Methadone HCl (Methadone Hcl 20 Mg/2 Ml Oral.Conc) 190 mg PO DAILY [facility]CLUD[facility] Last Admin: 08/19/23 08:06 Dose: 190 mg Documented By: DAVID Nicotine (Nicotine 21 Mg Patch.Td24) 21 mg TRANSDERMA DAILY [facility] Last Admin: 08/19/23 08:05 Dose: 21 mg Documented By: DAVID Nicotine Polacrilex (Nicotine Polacrilex 2 Mg Gum) 4 mg BUCCAL QID PRN PRN Reason: Nicotine Cravings Last Admin: 08/18/23 09:42 Dose: 4 mg Documented By: APOORVA Omeprazole (Omeprazole 20 Mg Capsule.Dr) 20 mg PO DAILY@0630 [facility] Last Admin: 08/19/23 05:46 Dose: 20 mg Documented By: CHAVA Oxycodone HCl (Oxycodone Hcl Immed Release 5 Mg Tablet) 5 mg PO Q6H PRN PRN Reason: Pain, Moderate(Pain Scale 4-6) Last Admin: 08/19/23 11:30 Dose: 5 mg Documented By: DAVID Pharmacy Consult (Consult Rx Vancomycin Dosing) 1 each MISCELLANE DAILY PRN PRN Reason: Consult order Quetiapine Fumarate (Quetiapine Fumarate 50 Mg Tablet) 50 mg PO BID [facility]CLUDES [facility] Last Admin: 08/19/23 08:06 Dose: 50 mg Documented By: DAVID Quetiapine Fumarate (Quetiapine Fumarate 300 Mg Tablet) 300 mg PO BEDTIME COUNT [facility]CLUDES [facility] Last Admin: 08/18/23 20:23 Dose: 300 mg Documented By: CHAVA Sodium Chloride (0.9 % Sodium Chloride Flush 3 Ml Syringe) 3 ml IVFLUSH QSHIFT COUNT INCLUDES THE [facility] Last Admin: 08/19/23 15:35 Dose: 3 ml Documented By: DAVID Labs 08/17/23 09:57 08/19/23 13:50 Labs: Laboratory Results - last 24 hr 08/19/23 13:50 Estim Creat Clear Calc 90.7 Estimated GFR > 60 Random Vancomycin 3.1 L Microbiology Microbiology Results: Microbiology 08/16/23 13:46 Blood Culture - Preliminary Blood - Venous No growth after 48 hours. 08/16/23 13:47 Blood Culture - Preliminary Blood - Venous No growth after 48 hours. Assessment and Plan (1) Opioid use disorder, moderate, dependence: Status: Inactive (2) Positive blood culture: Status: Acute Plan This is a 37-year-old woman admitted with MRSA bacteremia. Had labs drawn on 08/05/2023 that were positive and patient was called back to the ER; she then left AMA on the evening of 08/14 and has returned for re-admission MRSA bacteremia 1/2 positive 08/04, repeat negative; repeat 08/15 neg after 24hrs midline placed 08/19/23 Seen by ID, recommended 4 weeks of IV vancomycin- end date September 12 Echocardiogram negative for endocarditis Tooth pain magic mouthwash as needed toradol once, maybe IBU for further pain episodes will need follow up dental care outpatient Substance abuse Patient reports using 5 bundles of heroin a day, also uses cocaine and fentanyl Addiction medicine consultation> discussed with [facility], can use Dilaudid and oxycodone as patient has a high tolerance. wean as able Home dose verified and continued- methadone 190 mg daily Foul smelling vaginal discharge BV swab negative Mental health On Seroquel Normocytic anemia H&H above transfusion threshold Smoker Discussed importance of smoking cessation NRT ordered DVT prophylaxis with Lovenox Attending Dr. Mclean Full code DISPO plan for [facility] placement for abx, awaiting bed placement Requires ongoing inpatient hospitalization for treatment of MRSA bacteremia requiring IV antibiotics, echocardiogram and specialty consultation. Due to patient's history of substance abuse she is at high risk for decompensation if bacteremia is not treated. Quality Stroke Does the patient have a stroke diagnosis?: No VTE Prior VTE?: No VTE Risk Level:: Medical - moderate - high VTE Device Contraindication: N/A - Device Ordered VTE Drug Contraindication: N/A - Med Ordered
[2023-08-19] MEDS: vancomycin HCL 1,500 MG in 0.9 % Sodium Chloride 500 ML 333.33 MG IV (16:45)
[2023-08-19 18:56] VITALS: BP 133/80; PULSE 77; RESP 18; TEMP 36.4; O2SAT 95
[2023-08-19] MEDS: QUEtiapine Fumarate 300 MG TABLET PO (21:04)
[2023-08-19] MEDS: hydrOXYzine HCL 25 MG TABLET PO (21:04)
[2023-08-19] MEDS: Ketorolac Tromethamine 15 MG/ML VIAL IVPUSH (21:05)
[2023-08-20] MEDS: vancomycin HCL 1,500 MG in 0.9 % Sodium Chloride 500 ML 333.33 MG IV (03:28)
[2023-08-20 03:40] VITALS: BP 123/75; PULSE 85; RESP 18; TEMP 36.3; O2SAT 96
[2023-08-20] MEDS: Ketorolac Tromethamine 15 MG/ML VIAL IVPUSH ×2 (03:40→11:24)
[2023-08-20] MEDS: Omeprazole 20 MG CAPSULE.DR PO (06:00)
[2023-08-20 07:23] VITALS: BP 114/73; PULSE 75; RESP 17; TEMP 36.2; O2SAT 95
[2023-08-20] MEDS: 0.9 % Sodium Chloride Flush 3 ML SYRINGE IVFLUSH (07:47)
[2023-08-20] MEDS: QUEtiapine Fumarate 50 MG TABLET PO (07:48)
[2023-08-20] MEDS: Gabapentin 400 MG CAPSULE 800 MG PO (07:48)
[2023-08-20] MEDS: oxyCODONE HCl Immed Release 5 MG TABLET PO (07:49)
[2023-08-20] MEDS: Docusate Sodium 100 MG CAPSULE PO (07:50)
[2023-08-20] MEDS: LORazepam 0.5 MG TABLET 0.25 MG PO (07:59)
[2023-08-20] MEDS: Acetaminophen 325 MG TABLET 650 MG PO (08:00)
[2023-08-20] MEDS: methADONE HCl 20 MG/2 ML ORAL.CONC 190 MG PO (08:01)
[2023-08-20] MEDS: Nicotine 21 MG PATCH.TD24 TRANSDERMA (08:02)
[2023-08-20] MEDS: Mag&Al/Sim/Diphenhyd/Lidocaine 10 ML ORAL.SUSP PO (08:03)
--- NOTE | 2023-08-20 10:24 | MHC.CM.PN ---
DP: PT WILL DISCHARGE TO [facility] FOR LT ABT IV RX AND WOUND CARE. ABT HAS BEEN CHANGED TO DAPTOMYCIN AND SNF IS AGREEABLE TO THIS MED WITH PT'S MIDLINE. PROVIDER AWARE. RN AWARE. CENTER UPDATED AND LAST DOSE LETTER UPLOADED TO [facility]. S TRANSPORT BOOKED FOR 1 PM VIA [facility].
--- NOTE | 2023-08-20 10:40 | P.DS_ITS ---
DS: Providers Provider Date of Service: 08/20/23 Date of admission: 08/16/23 12:25 Date of discharge: 08/20/23 Primary care physician: BHARAT Coleman Attending physician on discharge: Bjorn Mclean Discharging clinician: Lianet Harris DS: Diagnosis Discharge Diagnosis (1) Opioid use disorder, moderate, dependence: Status: Inactive (2) Positive blood culture: Status: Acute DS: Summary Hospital Course Hospital Course: From H&P on the day of admission 37-year-old woman with a history of bipolar disorder, polysubstance abuse presented to the ER with abnormal blood work. She was in the ER on 08/04 and 514. She was called today due to a positive blood culture results with MRSA. She denied any fever, chills, nausea, vomiting, chest pain, shortness for breath. She has multiple injection sites to her arms and multiple scabbed areas to her legs. She is hemodynamically stable, labs all within acceptable limits. She was started on Rocephin, doxycycline, Flagyl, vancomycin in the ER. She will be admitted for further management and treatment of MRSA bacteremia. 37-year-old woman with a history of substance abuse treated for MRSA bacteremia with no evidence of endocarditis or sepsis. 1/2 blood cultures positive, repeat on 08/05/23 negative. midline placement for total 4 weeks of IV antibiotics, treated with IV vancomycin, but changed to daptomycin with end date September 09 2023. Transferred to [place] for antibiotic administration through midline catheter. History of substance abuse. Patient reports using fine bundles of heroin a day along with cocaine and fentanyl. Seen and evaluated by addiction medicine team. Continued on methadone 190 mg daily Anticipate less than 30 day stay at SNF Time Attestation Discharge Coordination Time (in mins): 36 Quality: Safe Use of Opioids Does Pt have an Active Cancer Diagnosis on the Problem List?: No Quality: Stroke Does the patient have a stroke diagnosis?: No Physical Exam Vital Signs: Vital Signs: Last Vital Signs Temp 97.1 F 08/20/23 07:23 Pulse 75 08/20/23 07:23 Resp 17 08/20/23 07:23 BP 114/73 08/20/23 07:23 Pulse Ox 95 08/20/23 07:23 O2 Del Method Room Air 08/20/23 07:23 BMI result Body Mass Index 22.9 Const: General: comfortable, no acute distress, alert and awake Nutritional Appearance: average body habitus Orientation/consciousness: patient oriented x3 Resp: Effort & Inspection: normal respiratory effort, able to speak in complete sentences, no respiratory distress and no use of accessory muscles Cardio: Rate: regular rate Neuro: General: patient oriented x3 Extrem: General: Yes no pedal edema DS: Data Data Completed and Pending Completed studies during hospitalization [Text1]: Procedures Detoxification Services for Substance Abuse Treatment (10/05/20) Labs on day of discharge: Laboratory Results - last 24 hr 08/19/23 13:50 Creatinine 0.74 Estim Creat Clear Calc 90.7 Estimated GFR > 60 Random Vancomycin 3.1 L Preliminary micro results at discharge 08/16/23 13:46 Blood Culture - Preliminary Blood - Venous No growth after 48 hours. 08/16/23 13:47 Blood Culture - Preliminary Blood - Venous No growth after 48 hours. Discharge Plan Discharge Anticipated Discharge Date/Time: 08/20/23 10:51 Patient Disposition: Xfer Inpatient Rehab Fac Discharge Diagnosis: MRSA bacteremia Referrals: [facility] [Outside] - 1 Week (TRANSFER FOR SHORT TERM REHAB (IV ANTIBIOTIC THERAPY AND WOUND CARE)) Discharge Medications: New omeprazole 20 mg Capsule,Delayed Release(Dr/Ec) 20 mg PO DAILY@0630 Qty: 30 0RF daptomycin in 0.9 % sod chlor 700 mg/100 mL piggyback 600 mg IV Q24H Rx Instructions: administer over 30 mins Continued nicotine (polacrilex) 4 mg gum 4 mg PO QID PRN (Reason: Nicotine Cravings) nicotine 21 mg/24 hr patch 24 hour 1 patch topical DAILY quetiapine 50 mg tablet extended release 24 hr 50 mg PO DAILY hydroxyzine HCl 25 mg tablet 25 mg PO BID PRN (Reason: Anxiety) ibuprofen 600 mg tablet 600 mg PO BID PRN (Reason: Pain) quetiapine 300 mg tablet 300 mg PO BEDTIME gabapentin 800 mg tablet 800 mg PO TID methadone [Methadose] 10 mg/mL Concentrate 190 mg PO DAILY Discharge Orders: Discharge Order (Routine); Ordered 08/19/23 Ordered By: Gwen Fine Diet: Advance to usual diet Activity on Discharge: As tolerated Stand Alone Forms: Patient Portal Discharge page Print Language: Moroccan Care Plan Goals: Transfer to [place] for IV [id number] mg/kg (600mg) q24 h for total of 4 wee ks end date 09/09/2023 recommend to monitor CPK, CBC, BMP weekly while receiving antibiotics starting on Thursday RN may remove midline after last dose Health Concerns: MRSA bacteremia Polysubstance use Plan of Treatment: Take all medications as prescribed Do not use street drugs Assessment: See discharge summary
[2023-08-20] MEDS: DAPTOmycin 600 MG in 0.9 % Sodium Chloride 50 ML 99.87 MG IV (11:24)
== END 2023-08-20 13:42 | DRG 724 ==
LOC: HO.ED 02:49 → HO.EDOVER 13:13 → HO.S3 19:42
PROVIDERS: Admitting Provider Physician Assistant Medical; Emergency Provider Emergency Medicine Emergency Medical Services; PCP Physician Assistant; Visit Provider Physician Assistant Medical
DX: R78.81 Bacteremia (principal); B95.62 Methicillin resistant Staphylococcus aureus infection as the cause of diseases classified elsewhere; F17.210 Nicotine dependence, cigarettes, uncomplicated; D64.9 Anemia, unspecified; F19.10 Other psychoactive substance abuse, uncomplicated; F11.20 Opioid dependence, uncomplicated; Z71.6 Tobacco abuse counseling; Z79.899 Other long term (current) drug therapy
CPT/HCPCS: 36415; 80048; 80202; 80307; 82565; 85025; 87040; 99285; J0878; J1200; J1630; J1650; J1885; J2060; J3370; J3371

== ENCOUNTER → 2023-08-16 02:49 | Outpatient (BNV) | payer MEDICAID, SELFPAY | PROVIDERS: Emergency Provider Emergency Medicine Emergency Medical Services; Visit Provider Physician Assistant Medical | DX: F11.20 Opioid dependence, uncomplicated (principal); R78.81 Bacteremia | CPT/HCPCS: 99223; 99232; 99239 ==

== ENCOUNTER 2023-08-21 11:27 | Emergency (ER) | payer MEDICAID, SELFPAY | END 2023-08-21 13:21 | disposition left against medical advice (07) | PROVIDERS: Emergency Provider Emergency Medicine | DX: B99.9 Unspecified infectious disease (principal); Z02.89 Encounter for other administrative examinations; Z53.21 Procedure and treatment not carried out due to patient leaving prior to being seen by health care provider ==

== ENCOUNTER 2023-08-21 23:03 | Emergency (ER) | payer OTHER, SELFPAY ==
--- NOTE | 2023-08-21 23:43 | ED.GENADULT ---
HPI - General Adult General Chief complaint: Psychiatric Symptoms Stated complaint: MRSA Time Seen by Provider: 08/21/23 23:42 Source: patient and RN notes reviewed Limitations: no limitations History of Present Illness HPI narrative: 37-year-old female who has a history of bipolar disorder, polysubstance use, currently on methadone, PTSD, anxiety, returns to the emergency department complaining of ?pain everywhere? as well as suicidal ideation. Patient has been seen in the emergency department multiple times since August 04, where she had a positive blood culture for MRSA. Patient has had subsequent visits and multiple blood cultures which have all been negative. She was admitted to the hospital on August 15 and was discharged on August 19 to go to a program. Patient however left the program. She denies having any further antibiotics. She previously had a midline placed. Patient states since leaving the program she admits to using several bags of heroin, IV ?. She also admits crack cocaine use. She denies any other illicit drug abuse. Currently the patient is complaining of ?whole-body pain?. She is requesting her medications. In addition the patient reports suicidal ideation without any specific plan. She denies any homicidal ideation. No auditory or visual hallucinations. Related Data Home Medications ?Medication ?Instructions ?Recorded ?Confirmed gabapentin 800 mg tablet 800 mg PO TID 08/09/23 08/16/23 methadone 10 mg/mL oral 190 mg PO DAILY 08/09/23 08/16/23 concentrate (Methadose) quetiapine 300 mg tablet 300 mg PO BEDTIME 08/09/23 08/16/23 hydroxyzine HCl 25 mg tablet 25 mg PO BID PRN Anxiety 08/12/23 08/16/23 nicotine (polacrilex) 4 mg gum 4 mg PO QID PRN Nicotine Cravings 08/12/23 08/16/23 nicotine 21 mg/24 hr daily 1 patch topical DAILY 08/12/23 08/16/23 transdermal patch quetiapine 50 mg tablet,extended 50 mg PO DAILY 08/12/23 08/16/23 release 24 hr ibuprofen 600 mg tablet 600 mg PO BID PRN Pain 08/16/23 08/16/23 Previous Rx's ?Medication ?Instructions ?Recorded omeprazole 20 mg capsule,delayed 20 mg PO DAILY@0630 #30 caps 08/18/23 release daptomycin 700 mg/100 mL in 0.9 % 600 mg (85.7143 mL) IV Q24H 08/20/23 sodium chlor intravenous piggyback oxycodone 5 mg tablet 5 mg PO BID PRN pain (scale score 08/20/23 4-6) #10 tabs Allergies Allergy/AdvReac Type Severity Reaction Status Date / Time No Known Allergies Allergy Verified 08/22/23 00:01 [No Known Allergies*] Review of Systems Constitutional: Constitutional: Denies chills, Denies fever(s) and Denies headache(s) ENT: Denies headache(s), Denies nasal congestion, Denies nasal discharge, Denies neck pain and Denies sore throat Cardiovascular: Cardiovascular: Denies chest pain, Denies palpitations, Denies dyspnea, Denies dyspnea on exertion and Denies orthopnea Respiratory: Respiratory: Denies cough, Denies dyspnea and Denies dyspnea on exertion Gastrointestinal: Gastrointestinal: Denies abdominal pain, Denies melena, Denies hematochezia, Denies diarrhea, Denies nausea and Denies vomiting Genitourinary: Genitourinary: Denies dysuria and Denies urinary urgency Musculoskeletal: Musculoskeletal: Denies back pain, Reports myalgias, Reports muscle weakness, Denies neck pain and Denies numbness Integumentary/Breasts: Skin/Breast: Denies rash Neurologic: Denies headache(s), Denies focal weakness and Denies numbness Psychiatric: Psychiatric: Reports anxiety and Reports depression Endocrine: Endocrine: Denies palpitations PMFSH Past Medical History Medical History Opioid use disorder, moderate, dependence Cocaine use disorder History of drug dependence/abuse Atypical bipolar disorder Opiate withdrawal Acute anxiety Drug-induced psychotic disorder Depression PTSD (post-traumatic stress disorder) Anxiety Depression Social History Social History Household Members: Other Household Members Other:: grandmother Housing: Apartment Do you presently have visiting nurse or other home services: No 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: current 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 frequency: a few times a month Alcohol type: beer, wine and hard liquor 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 Patient Tobacco Use Status: Current everyday Tobacco user Tobacco use type: Cigarette Cigarette Packs Per Day: 2 Cigarettes Per Day: 40.0 Years Smoked: 23 Second Hand Smoke Exposure: Yes Substance Use Type: Crack/Cocaine and Opiates Advance Directives: No Advance Directives Information Provided: Yes Do you have a plan to hurt others: No Plan service: No Current occupational status: unemployed Sexual orientation: Straight/Heterosexual Physical Exam ED Vital Signs: Vital Signs - 24 hr 08/21/23 23:58 08/21/23 23:58 Temperature 98.6 F 97.8 F Pulse Rate 85 87 Respiratory Rate 16 16 Blood Pressure 105/80 142/87 H Pulse Oximetry 98 97 Oxygen Delivery Method Room Air Room Air BMI result Body Mass Index 21.6 Const General: cooperative Resp Auscultation: clear to auscultation bilaterally Cardio Rate: regular rate Rhythm: regular rhythm GI Other: No tenderness to palpation Psych Attitude: cooperative Thought content: Suicidality present and no homicidality Course Course Course Narrative: August 22, 2023, 1:50 a.m. patient signed out in stable condition to Dr. Benitez with labs and care team evaluation pending. Patient remains on one-to-one observation. Medical Decision Making Medical Decision Making [facility] Narrative: 37-year-old female history of bipolar disorder, polysubstance use, PTSD and anxiety, return to the emergency department complaining of suicidal ideation. Patient had a recent inpatient admission, receiving IV antibiotics for MRSA positive blood culture. Patient was noncompliant at her outpatient treatment facility, admits to use in opiates and crack cocaine. Patient is currently complaining of generalized body pain. Check urine tox, evaluation by the care team. Since it has been several days since the patient has had any blood work, we will repeat CBC to ensure no new leukocytosis. Differential Diagnosis Differential Diagnoses: The differential diagnosis associated with the presentation includes Psychosis PTSD Polysubstance use MRSA Admission/Observation Consideration of admission/observation: Escalation of care including admission/observation considered Lab Data Labs: Lab Results 08/22/23 Range/Units Unknown Urine Test NEGATIVE (NEGATIVE) Urine Opiates Screen POSITIVE H (Not Detect) Ur Buprenorphine Scrn Not Detected (Not Detect) ng/mL Ur Oxycodone Screen Positive H (Not Detect) ng/mL Urine Methadone Screen Positive H (Not Detect) ng/mL Urine Fentanyl Screen POSITIVE H (Not Detect) Ur Barbiturates Screen Not Detected (Not Detect) Ur Phencyclidine Scrn Not Detected (Not Detect) Ur Amphetamines Screen Not Detected (Not Detect) U Benzodiazepines Scrn Not Detected (Not Detect) Urine Cocaine Screen POSITIVE H (Not Detect) U Marijuana (THC) Screen Not Detected (Not Detect) External Record Review External record reviewed: Inpatient record Prescription Management I considered prescription management with: Pain Medication Social Determinants Patient?s care significantly limited by Social Determinants of Health including: Alcoholism and drug addiction in family, Problems related to primary support group, Unemployment and Other Social Determinant of Health Discharge Plan Discharge Clinical Impression: Opioid abuse Patient Disposition: Still a Patient Prescriptions: No Action nicotine (polacrilex) 4 mg gum 4 mg PO QID PRN (Reason: Nicotine Cravings) nicotine 21 mg/24 hr patch 24 hour 1 patch topical DAILY quetiapine 50 mg tablet extended release 24 hr 50 mg PO DAILY hydroxyzine HCl 25 mg tablet 25 mg PO BID PRN (Reason: Anxiety) ibuprofen 600 mg tablet 600 mg PO BID PRN (Reason: Pain) omeprazole 20 mg Capsule,Delayed Release(Dr/Ec) 20 mg PO DAILY@0630 Qty: 30 0RF daptomycin in 0.9 % sod chlor 700 mg/100 mL piggyback 600 mg IV Q24H Rx Instructions: administer over 30 mins oxycodone 5 mg tablet 5 mg PO BID PRN (Reason: pain (scale score 4-6)) Qty: 10 0RF Rx Instructions: Partial Fill upon patient request. quetiapine 300 mg tablet 300 mg PO BEDTIME gabapentin 800 mg tablet 800 mg PO TID methadone [Methadose] 10 mg/mL Concentrate 190 mg PO DAILY Interventions: Bolton-Suicide Risk Severity Scale Last Done: 08/22/23 00:48 Print Language: Bulgarian
[2023-08-21 23:58] VITALS: BP 105/80; BP 142/87; PULSE 85; PULSE 87; RESP 16; TEMP 36.6; TEMP 37; O2SAT 97; O2SAT 98; BMI 21.6
[2023-08-22 00:34] LABS: UPreg QC Valid YES; Urine Pregnancy NEGATIVE (NEGATIVE)
[2023-08-22 00:44] LABS: Amphetamine Screen Urine Not Detected (Not Detect); Barbiturates, Urine Not Detected (Not Detect); Benzodiazepines Screen Urine Not Detected (Not Detect); Buprenorphine Scr Not Detected (Not Detect); Cannabinoid Screen Urine Not Detected (Not Detect); Cocaine Screen Urine POSITIVE (Not Detect); Fentanyl, urine POSITIVE (Not Detect); Methadone Screen, Urine Positive (Not Detect); Opiate Screen Urine POSITIVE (Not Detect); Oxycodone Screen Urine Positive (Not Detect); Phencyclidine Screen Urine Not Detected (Not Detect)
--- NOTE | 2023-08-22 00:47 | MHC.EDTECH ---
t/w attempted to obtain lab draw. pt extremely difficult stick. rn aware.
--- NOTE | 2023-08-22 03:34 | MHC.EDTECH ---
ALL BELONGINGS PLACED IN DECON.
[2023-08-22 08:08] VITALS: BP 109/66; PULSE 70; RESP 15; TEMP 36.4; O2SAT 97
--- NOTE | 2023-08-22 08:49 | PC.NURSE ---
Called [facility] Methadone dose confirmed with GARRISON Driver last dose of 190mg's was given 07/30/23 at 1048.
--- NOTE | 2023-08-22 09:55 | HE.PHANOTE ---
RE METHADONE Pharmacy received methadone confirmation. patient gets doses with [facility]. last dosed 190 mg on 08/21/23
[2023-08-22 10:06] LABS: MANUAL DIFF FLAG NO
[2023-08-22 10:08] LABS: Basophils Percent Auto 0.4 % (0-2); Eosinophils Absolute Auto 0.1 X10*3/uL (0.0-0.4); Eosinophils Percent Auto 2.7 % (0-4); Hematocrit 34.9 % (37.0-47.0); Imm Gran Abs Auto 0.01 X10*3/uL (0.00-0.03); Imm Gran Pct Auto 0.2 % (0.0-0.4); Lymphocytes Absolute Auto 1.6 X10*3/uL (1.2-4.9); Lymphocytes Percent Auto 33.3 % (20-40); Mean Corpuscular HGB Conc 31.5 g/dl (31.0-35.0); Mean Corpuscular Hemoglobin 27.7 pg (27.0-33.0); Mean Corpuscular Volume 87.9 fL (80.0-98.0); Mean Platelet Volume 8.9 fL (9.4-12.3); Monocytes Absolute Auto 0.5 X10*3/uL (0.1-1.2); Monocytes Percent Auto 11.4 % (2-11); Neutrophils Absolute Auto 2.5 x10*3/uL (2.0-8.3); Platelet Count 275 X10*3/uL (160-400); Red Blood Count 3.97 X10*6/uL (4.20-5.50); Red Cell Distribution Width 15.7 % (11.0-16.0); White Blood Count 4.7 X10*3/uL (4.8-10.8)
[2023-08-22 10:20] LABS: Ethanol < 10 mg/dL
[2023-08-22 10:22] LABS: Alanine Aminotransferase 37 U/L (0-31); Albumin Level 4.1 g/dL (3.5-5.0); Alkaline Phosphatase 74 U/L (39-117); Anion Gap 14 (12-20); Aspartate Amino Transferase 47 U/L (5-31); Bilirubin Total 0.3 mg/dL (0.0-1.0); Blood Urea Nitrogen 14 mg/dL (9-16); Calcium 9.9 mg/dL (8.4-10.2); Carbon Dioxide 29 mmol/L (22-29); Chloride 99 mmol/L (96-108); Creatinine Clr Calc Pharmacy 88.3; Estimated Glomerular Filt Rate > 60; Glucose Random 110 mg/dL (60-115); Potassium 4.1 mmol/L (3.3-5.1); Sodium 138 mmol/L (135-145); Total Protein 8.2 g/dL (6.5-8.0)
[2023-08-22] MEDS: methADONE HCl 20 MG/2 ML ORAL.CONC 190 MG PO (11:21)
[2023-08-22] MEDS: Omeprazole 20 MG CAPSULE.DR PO (11:21)
[2023-08-22] MEDS: Gabapentin 400 MG CAPSULE 800 MG PO ×3 (11:21→20:15)
[2023-08-22] MEDS: Nicotine 21 MG PATCH.TD24 TRANSDERMA (11:22)
[2023-08-22 13:19] VITALS: RESP 16
--- NOTE | 2023-08-22 15:33 | MHC.CARE ---
Pt not assessable at this time. CARE team to f/u with pt in the morning.
[2023-08-22 16:43] VITALS: BP 94/69; PULSE 78; RESP 16; TEMP 36.3; O2SAT 95
--- NOTE | 2023-08-22 19:29 | PC.NURSE ---
patient appears to remain at rest requests sandiches and refreshments watching tv in group area appears in no distress
--- NOTE | 2023-08-22 19:36 | PC.NURSE ---
patients mother called asking gen info questions patient consented
[2023-08-22] MEDS: QUEtiapine Fumarate 25 MG TABLET PO (20:16)
[2023-08-22] MEDS: QUEtiapine Fumarate 300 MG TABLET PO (20:16)
[2023-08-22] MEDS: diazePAM 10 MG/2 ML CARTRIDGE 2.5 MG IVPUSH (21:37)
[2023-08-22] MEDS: vancomycin HCL 1,250 MG in 0.9 % Sodium Chloride 250 ML 166.67 MG IV (21:37)
[2023-08-23 01:54] VITALS: BP 80/51; PULSE 98; RESP 16; TEMP 36.7; O2SAT 97
[2023-08-23] MEDS: 0.9 % Sodium Chloride 1,000 ML 999 ML IV (01:57)
--- NOTE | 2023-08-23 01:57 | PC.NURSE ---
liter bolus iv normal saline started for low BP - BHARAT abreu. Pt refusing to have BP rechecked on other arm.
[2023-08-23 06:03] VITALS: BP 84/52; PULSE 78; RESP 16; TEMP 36.7; O2SAT 98
[2023-08-23] MEDS: Lactated Ringers 1,000 ML 999 ML IV (06:20)
[2023-08-23] MEDS: Ibuprofen 600 MG TABLET PO (06:38)
--- NOTE | 2023-08-23 06:38 | PC.NURSE ---
pt screaming, hollering in the hallway saying where are my meds where is the doctor MD Delarosa at bedside explaining to pt she is on methadone and cannot be given narcotics, offering po ativan and po ibuprofen but pt upset saying she is going to leave [facility] if we do not fix her pain or anxiety. pt requiring admission for iv antibiotics
[2023-08-23] MEDS: LORazepam 1 MG TABLET 2 MG PO (06:39)
[2023-08-23] MEDS: Omeprazole 20 MG CAPSULE.DR PO (06:39)
--- NOTE | 2023-08-23 07:08 | PC.NURSE ---
pt continuously yelling at staff to take the iv out of her neck because she wants to leave [facility]. MD rogers aware. pt refusing treatment, refusing iv fluids or antibiotics. MD rogers and this RN explaining risks of leaving [facility] to the patient.pt says she needs to go get high or she needs iv narcotics. MD rogers explained why we cannot give her iv narcotics but that she has methadone ordered, etc. pt signed AMA forms and walked out with steady gait by security.
== END 2023-08-23 07:10 | disposition left against medical advice (07) ==
PROVIDERS: Physician Assistant; Emergency Provider Emergency Medicine Emergency Medical Services
DX: F11.20 Opioid dependence, uncomplicated (principal); G89.29 Other chronic pain; Z76.5 Malingerer [conscious simulation]; F31.9 Bipolar disorder, unspecified; F43.10 Post-traumatic stress disorder, unspecified; R45.851 Suicidal ideations; F17.210 Nicotine dependence, cigarettes, uncomplicated; Z91.198 Patient's noncompliance with other medical treatment and regimen for other reason; Z53.29 Procedure and treatment not carried out because of patient's decision for other reasons
CPT/HCPCS: 36415; 80053; 80307; 81025; 82550; 85025; 87040; 99284; J3360; J3371; J7120; S9485

== ENCOUNTER 2023-08-23 15:20 | Emergency (ER) | payer MEDICAID, SELFPAY ==
[2023-08-23 15:36] VITALS: BP 118/64; PULSE 111; RESP 20; TEMP 36.9; O2SAT 97; BMI 24.2
--- NOTE | 2023-08-23 17:31 | ED_ITS ---
HPI - Psych General Chief Complaint: ETOH/Substance Use Stated Complaint: psychotic episode d/t drug use,anxiety Time Seen by Provider: 08/23/23 17:31 Source: patient Mode of arrival: EMS Limitations: no limitations History of Present Illness HPI Narrative: Patient 87 years old with history of bipolar disorder opiate use was here yesterday left against medical advise came back after smoking crack and snorting 2 bags of heroin demanding anxiety medication refusing to stay in the bed Related Data Home Medications ?Medication ?Instructions ?Recorded ?Confirmed gabapentin 800 mg tablet 800 mg PO TID 08/09/23 08/22/23 methadone 10 mg/mL oral 190 mg PO DAILY 08/09/23 08/22/23 concentrate (Methadose) quetiapine 300 mg tablet 300 mg PO BEDTIME 08/09/23 08/22/23 hydroxyzine HCl 25 mg tablet 25 mg PO BID PRN Anxiety 08/12/23 08/22/23 nicotine (polacrilex) 4 mg gum 4 mg PO QID PRN Nicotine Cravings 08/12/23 08/22/23 nicotine 21 mg/24 hr daily 1 patch topical DAILY 08/12/23 08/22/23 transdermal patch quetiapine 50 mg tablet,extended 50 mg PO DAILY 08/12/23 08/22/23 release 24 hr ibuprofen 600 mg tablet 600 mg PO BID PRN Pain 08/16/23 08/22/23 Previous Rx's ?Medication ?Instructions ?Recorded omeprazole 20 mg capsule,delayed 20 mg PO DAILY@0630 #30 caps 08/18/23 release daptomycin 700 mg/100 mL in 0.9 % 600 mg (85.7143 mL) IV Q24H 08/20/23 sodium chlor intravenous piggyback Allergies Allergy/AdvReac Type Severity Reaction Status Date / Time No Known Allergies Allergy Verified 08/23/23 15:46 [No Known Allergies*] Review of Systems Review of Systems: Yes all other systems are reviewed and are negative PMFSH Past Medical History Medical History Opioid use disorder, moderate, dependence Cocaine use disorder History of drug dependence/abuse Atypical bipolar disorder Opiate withdrawal Acute anxiety Drug-induced psychotic disorder Depression PTSD (post-traumatic stress disorder) Anxiety Depression Social History Social History Household Members: Other Household Members Other:: grandmother Housing: Apartment Do you presently have visiting nurse or other home services: No 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: current 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 frequency: a few times a month Alcohol type: beer, wine and hard liquor 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 Patient Tobacco Use Status: Current everyday Tobacco user Tobacco use type: Cigarette Cigarette Packs Per Day: 2 Cigarettes Per Day: 40.0 Years Smoked: 23 Second Hand Smoke Exposure: Yes Substance Use Type: Crack/Cocaine and Opiates Advance Directives: No Advance Directives Information Provided: No service: No Current occupational status: unemployed Sexual orientation: Straight/Heterosexual Physical Exam Vital Signs: Vital Signs: Last Vital Signs Temp 98.5 F 08/23/23 15:36 Pulse 111 H 08/23/23 15:36 Resp 20 08/23/23 15:36 BP 118/64 08/23/23 15:36 Pulse Ox 97 08/23/23 15:36 O2 Del Method Room Air 08/23/23 15:36 BMI result Body Mass Index 24.2 Appearance: Alert. Oriented X3. No acute distress. Anxious Eyes: PERRLA, No Nystagmus ENT: Pharynx normal. Oral Mucosa moist Neck: Normal inspection. Neck supple. CVS: Normal heart rate and rhythm. Pulses normal. Respiratory: No respiratory distress. Equal air entry bilateral, no wheezing/rales/rhonchi Abdomen: Soft and nontender. Bowel sounds are present, no mass palpable, no CVA tenderness Skin: Skin warm and dry. Normal skin color. Normal skin turgor. Extremities: No lower extremity edema. No calf tenderness psych: Anxious denies any SI or HI at this time Neuro: Oriented X 3. No motor deficit. No sensory deficit.No cerebellar signs , cranial nerves II-XII intact Medications Administered Discontinued Medications Generic Name Dose Route Start Last Admin Trade Name Freq PRN Reason Stop Dose Admin Lorazepam 2 mg 08/23/23 17:38 08/23/23 18:13 Lorazepam 1 Mg Tablet PO 08/23/23 17:39 2 mg ONCE ONE Administration Medical Decision Making Medical Decision Making [facility] Narrative: Patient with multiple ED visits and admissions refusing to stay in the bed take the treatment patient had 1 MRSA blood culture positive received IV antibiotic repeat blood cultures been negative was given dose of vancomycin last night which she pulled it out and left against medical advise patient is supposed to get IV daptomycin patient is again after getting Ativan for anxiety wants to go home signing against medical advice Discharge Plan Discharge Clinical Impression: Bipolar disorder, Opioid abuse Patient Disposition: Left Against Medical Advice Instructions: Bipolar Disorder (ED), Polysubstance Abuse (ED) Prescriptions: No Action nicotine (polacrilex) 4 mg gum 4 mg PO QID PRN (Reason: Nicotine Cravings) nicotine 21 mg/24 hr patch 24 hour 1 patch topical DAILY quetiapine 50 mg tablet extended release 24 hr 50 mg PO DAILY hydroxyzine HCl 25 mg tablet 25 mg PO BID PRN (Reason: Anxiety) ibuprofen 600 mg tablet 600 mg PO BID PRN (Reason: Pain) omeprazole 20 mg Capsule,Delayed Release(Dr/Ec) 20 mg PO DAILY@0630 Qty: 30 0RF daptomycin in 0.9 % sod chlor 700 mg/100 mL piggyback 600 mg IV Q24H Rx Instructions: administer over 30 mins quetiapine 300 mg tablet 300 mg PO BEDTIME gabapentin 800 mg tablet 800 mg PO TID methadone [Methadose] 10 mg/mL Concentrate 190 mg PO DAILY Stand Alone Forms: Against Medical Advice Print Language: Frisian
[2023-08-23] MEDS: LORazepam 1 MG TABLET 2 MG PO (18:13)
== END 2023-08-23 18:42 | disposition left against medical advice (07) ==
PROVIDERS: Emergency Provider Internal Medicine
DX: F31.9 Bipolar disorder, unspecified (principal); F11.10 Opioid abuse, uncomplicated
CPT/HCPCS: 99281; 99283

== ENCOUNTER 2023-08-23 21:34 | Emergency (ER) | payer MEDICAID, SELFPAY ==
[2023-08-23 21:50] VITALS: PULSE 99; RESP 15; TEMP 37.1; O2SAT 96; BMI 22.1
--- NOTE | 2023-08-23 21:55 | PC.NURSE ---
pt pulled off bp cuff d/t skin burning. refused bp.
--- NOTE | 2023-08-23 22:03 | PC.NURSE ---
patient telling security she wants to leave and does not wish to seek treatment MD FAYE aware and OK pt walked out by security ambulated with a steady gait
== END 2023-08-23 22:07 | disposition left against medical advice (07) ==
PROVIDERS: Emergency Provider Emergency Medicine
DX: F19.90 Other psychoactive substance use, unspecified, uncomplicated (principal)
CPT/HCPCS: 99281

== ENCOUNTER 2023-08-24 03:41 | Emergency (ER) | payer MEDICAID, SELFPAY ==
[2023-08-24 03:49] VITALS: BMI 21.4
[2023-08-24 03:59] VITALS: BP 104/71; PULSE 103; RESP 16; TEMP 36.4; O2SAT 96
--- NOTE | 2023-08-24 04:00 | MHC.EDTECH ---
Patient came in by ambulance, security called to assist with tire changer aircraft,patient was changed into hospital attire,vitals taken and all belongings locked in [facility] ROOM. Patient was given 2 ice creams ,2 cans of silverio daniele and a ham sandwich per request
--- NOTE | 2023-08-24 04:48 | PC.NURSE ---
PT WALKED OUT , PROVIDER AWARE
== END 2023-08-24 05:52 | disposition left against medical advice (07) ==
PROVIDERS: Emergency Provider Emergency Medicine
DX: R44.3 Hallucinations, unspecified (principal)
CPT/HCPCS: 99281; 99284

== ENCOUNTER 2023-08-26 14:34 | Emergency (ER) | payer MEDICAID, SELFPAY ==
--- NOTE | ~2023-08-26 | CT_ITS ---
EXAMINATION: CT ABDOMEN AND PELVIS WITHOUT CONTRAST CLINICAL INFORMATION: Left lower abdominal pain COMPARISON: CT abdomen pelvis 10/05/2020 TECHNIQUE: Multidetector volumetric imaging was performed from the superior aspect of the liver through the pubic symphysis. Sagittal and coronal reformatted images were obtained on the technologist's workstation. This CT examination was performed using dose optimization techniques as appropriate, variously including the following: *Automated exposure control *Adjustment of mA and/or kV according to patient size (this includes techniques or standardized protocols for targeted exams where dose is matched to indication/reason for exam; i.e. extremities or head) *Use of iterative reconstruction technique DLP: 350 mGy-cm FINDINGS: LUNG BASES: The visualized lung bases are unremarkable. Bibasilar atelectasis is present LIVER, GALLBLADDER, AND BILIARY TREE: The liver is normal enlarged measuring 20 cm in greatest length. Attenuation is within normal limits, greater than the spleen. No focal hepatic lesion or biliary ductal dilatation is present. The gallbladder is contracted with a question of a gallstone but there are no obvious pericholecystic inflammatory changes. PANCREAS: Unremarkable. SPLEEN: Spleen is enlarged at 12.5 cm in greatest length. ADRENAL GLANDS: Unremarkable. KIDNEYS AND URETERS: The kidneys are normal in size, shape, and attenuation. No hydronephrosis, hydroureter, or calculi seen. No perinephric stranding. BLADDER: Unremarkable. GASTROINTESTINAL TRACT: The small and large bowel are unremarkable however evaluation limited by lack of oral contrast media, IV contrast media and mesenteric fat. The appendix is is not seen with certainty but there is no convincing evidence of appendicitis.. ABDOMINAL WALL: No significant hernia is appreciated. LYMPH NODES: Normal. VASCULAR: Unremarkable. PELVIC VISCERA: The uterus is retroverted. An abnormal adnexal mass or free intraperitoneal fluid is not seen. OSSEOUS STRUCTURES: Unremarkable. CT/CT abdomen pelvis wo IV con IMPRESSION: 1. A cause for the patient's left lower quadrant pain has not been found. 2. Incidental note made of mild hepatosplenomegaly and a question of a gallstone. Fleischner guidelines were followed.
[2023-08-26 14:40] VITALS: BP 128/71; PULSE 60; RESP 19; TEMP 36.6; O2SAT 98; BMI 20.9
--- NOTE | 2023-08-26 14:41 | ED.GENADULT ---
HPI - General Adult General Chief complaint: General Medical Stated complaint: MRSA Time Seen by Provider: 08/26/23 16:22 Source: patient, RN notes reviewed and old records reviewed Mode of arrival: ambulatory Limitations: no limitations History of Present Illness ED Provider: Mick HUSSEIN narrative: 37-year-old female with past medical history significant for bipolar disorder, polysubstance abuse presents for evaluation of ?I have MRSA in my blood. ? Patient has had numerous ED visits for similar complaints as well as substance abuse The patient uses IV heroin and cocaine. She did not have positive blood cultures with MRSA on 08/05/2023. However, she had negative blood cultures on 08/11/2023, 08/12/2023, 08/16/2023, 08/22/2023. She reports she has not use substances since yesterday. She denies any fevers or chills but complains of left lower abdominal pain She does state that this pain is somewhat chronic for her Patient reports that she be seen at [facility] last night and was given ?a shot, 4 pills and a prescription for doxycycline. ? She believes she is being treated for STIs as well as BV The patient is seeking detox from opiates and also reports depression but she has not suicidal Related Data Home Medications ?Medication ?Instructions ?Recorded ?Confirmed gabapentin 800 mg tablet 800 mg PO TID 08/09/23 08/26/23 methadone 10 mg/mL oral 190 mg PO DAILY 08/09/23 08/22/23 concentrate (Methadose) quetiapine 300 mg tablet 300 mg PO BEDTIME 08/09/23 08/26/23 hydroxyzine HCl 25 mg tablet 25 mg PO BID PRN Anxiety 08/12/23 08/26/23 nicotine (polacrilex) 4 mg gum 4 mg PO QID PRN Nicotine Cravings 08/12/23 08/22/23 nicotine 21 mg/24 hr daily 1 patch topical DAILY 08/12/23 08/22/23 transdermal patch quetiapine 50 mg tablet,extended 50 mg PO DAILY 08/12/23 08/26/23 release 24 hr ibuprofen 600 mg tablet 600 mg PO BID PRN Pain 08/16/23 08/22/23 Previous Rx's ?Medication ?Instructions ?Recorded omeprazole 20 mg capsule,delayed 20 mg PO DAILY@0630 #30 caps 08/18/23 release daptomycin 700 mg/100 mL in 0.9 % 600 mg (85.7143 mL) IV Q24H 08/20/23 sodium chlor intravenous piggyback Allergies Allergy/AdvReac Type Severity Reaction Status Date / Time No Known Allergies Allergy Verified 08/26/23 14:42 [No Known Allergies*] Review of Systems Constitutional: Constitutional: Denies body ache(s), Denies chills and Denies fever(s) ENT: Denies sore throat Cardiovascular: Cardiovascular: Denies chest pain and Denies dyspnea Respiratory: Respiratory: Denies cough and Denies dyspnea Gastrointestinal: Gastrointestinal: Reports abdominal pain, Denies nausea and Denies vomiting Genitourinary: Genitourinary: Denies difficulty voiding, Denies dysuria and Denies pelvic pain Musculoskeletal: Musculoskeletal: Denies back pain Integumentary/Breasts: Skin/Breast: Denies rash PMFSH Past Medical History Medical History Opioid use disorder, moderate, dependence Cocaine use disorder History of drug dependence/abuse Atypical bipolar disorder Opiate withdrawal Acute anxiety Drug-induced psychotic disorder Depression PTSD (post-traumatic stress disorder) Anxiety Depression Social History Social History Household Members: Other Household Members Other:: grandmother Housing: Apartment Do you presently have visiting nurse or other home services: No 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: current 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 frequency: a few times a month Alcohol type: beer, wine and hard liquor 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 Patient Tobacco Use Status: Current everyday Tobacco user Tobacco use type: Cigarette Cigarette Packs Per Day: 2 Cigarettes Per Day: 40.0 Years Smoked: 23 Smoked in Last 30 Days: Yes Second Hand Smoke Exposure: Yes Use of substances other than those prescribed or required for medical reasons: Yes Substance Use Type: Crack/Cocaine, Heroin and Marijuana Substance Use Frequency: Daily Last Used Substance: Days (ago) Advance Directives: No Advance Directives Information Provided: No Patient : No service: No Current occupational status: unemployed Sexual orientation: Straight/Heterosexual Physical Exam ED Vital Signs: Vital Signs - 24 hr 08/26/23 14:40 08/26/23 18:27 08/26/23 22:38 Temperature 98 F 97.6 F 98.9 F Pulse Rate 60 60 97 Respiratory Rate 19 14 16 Blood Pressure 128/71 130/91 H 112/58 L Pulse Oximetry 98 97 99 Oxygen Delivery Method Room Air Room Air Room Air BMI result Body Mass Index 20.9 Const General: healthy appearing, comfortable, no acute distress, alert and awake Nutritional Appearance: thin and underweight Orientation/consciousness: patient oriented x3 HENMT Head: Yes normocephalic and Yes atraumatic Eyes Eyelids: Yes eyelids normal Conjunctivae: conjunctivae normal Sclerae: sclerae normal Corneas: corneas normal Pupils: Equal, round and reactive pupils present EOM: EOMs intact bilaterally Neck Neck: Yes full ROM Resp Effort & Inspection: normal respiratory effort, able to speak in complete sentences, no audible wheezes and not labored Auscultation: clear to auscultation bilaterally Cardio Rate: regular rate Rhythm: regular rhythm GI Inspection: No distended Palpation (GI): Soft to palpation, not firm, nontender, no guarding and not rigid Skin Other: Track nieves to bilateral upper extremities. There is some ecchymosis but no significant erythema or edema General skin exam: elasticity normal Neuro General: patient oriented x3 Cranial nerves: Yes Equal, round and reactive pupils present and Yes Bilaterally intact EOM present Cognition (Neuro): normal cognition Extrem Other: Moving all extremities well without any obvious deformities Course Course Course Narrative: This is an RME done by BHARAT Olvera: Additional HPI, ROS, PE not included below will be deferred to primary provider. 37 year old female hx current IVDA, + blood cultures, ptsd, anxiety, depression, opiate and cocaine use disorder. represents for concerns of MRSA and states i think i have an infection in my blood . Left AMA 4 x last week. On methadone last dosed this am. Appearance: Alert.? Oriented X3.? No acute cardiopulmonary distress distress.? Head: Normocephalic, atraumatic, no step-offs or deformities Neck: Normal inspection.? Neck supple.? CVS: Pulses normal.? Respiratory: No respiratory distress.? Abdomen: Soft and nontender.? Skin: ? Normal skin color. + track nieves to b/l UE Extremities: 5/5 strength to bilateral upper and lower extremities Neuro: Oriented X 3.? No motor deficit.? No sensory deficit. Reevaluation(s) Reevaluation #1: Patient's medical workup is unremarkable, CT scan of the show any concerning abnormalities. The patient states that she has had a previous abnormal Pap smear and is looking for OBGYN follow-up. She also reports a recent diagnosis of hepatitis-C and is looking for GI follow-up. These referrals will both be placed, but there is no acute intervention for these issues. The patient is now medically cleared for care team evaluation Time: 18:55 Reevaluation #2: Patient was calm and cooperative 3 most of her stay, she began nodding off which would not be consistent with the medications that she was given in the ED. due to her complaints of substance abuse and depression the patient is going to be changed over for care team evaluation. The patient was not comfortable with this and requested to be discharged. I tried to talk her into staying to get her the help that she needs and the patient is quite upset and continues to demand her discharge papers Time: 22:45 Medications Administered Generic Name Dose Route Start Last Admin Trade Name Freq PRN Reason Stop Dose Admin Gabapentin 800 mg 08/26/23 21:00 08/26/23 21:26 Gabapentin 400 Mg Capsule PO 800 mg TID JAIR Administration Quetiapine Fumarate 300 mg 08/26/23 21:00 08/26/23 21:26 Quetiapine Fumarate 300 Mg Tablet PO 300 mg BEDTIME JAIR Administration Discontinued Medications Generic Name Dose Route Start Last Admin Trade Name Freq PRN Reason Stop Dose Admin Diphenhydramine HCl 25 mg 08/26/23 16:50 08/26/23 16:57 Diphenhydramine Hcl 25 Mg Capsule PO 08/26/23 16:51 25 mg ONCE ONE Administration Gabapentin 600 mg 08/26/23 17:04 08/26/23 17:20 Gabapentin 600 Mg Tablet PO 08/26/23 17:05 600 mg ONCE ONE Administration Gabapentin 200 mg 08/26/23 17:04 08/26/23 17:20 Gabapentin 100 Mg Capsule PO 08/26/23 17:05 200 mg ONCE ONE Administration Ibuprofen 600 mg 08/26/23 16:50 08/26/23 16:57 Ibuprofen 600 Mg Tablet PO 08/26/23 16:51 600 mg ONCE ONE Administration Lorazepam 1 mg 08/26/23 19:46 08/26/23 19:55 Lorazepam 1 Mg Tablet PO 08/26/23 19:47 1 mg ONCE ONE Administration Medical Decision Making Medical Decision Making MDM Narrative: 37-year-old female presents for evaluation of self reported positive blood cultures. She has not had positive blood cultures since August 01. Plan to repeat blood cultures. The patient is afebrile, she has no leukocytosis. She has normotensive and not tachycardic, she is quite well appearing. Additionally, she Denies any chest pain, so endocarditis is less likely The patient reports that she has not used any substances since yesterday. She is quite well appearing and not as anxious or combative as she usually presents to the ER. Plan to have her meet with the addiction medicine and care team. We will get a CT scan of her abdomen pelvis given her left lower abdominal pain Differential Diagnosis Differential Diagnoses: The differential diagnosis associated with the presentation includes Bacteremia Substance abuse IV drug abuse Endocarditis less likely Depression Anxiety Admission/Observation Consideration of admission/observation: Escalation of care including admission/observation considered Concern admission due to history of positive blood cultures and active IV drug abuse, but the patient is afebrile, has no leukocytosis. Lab Data [facility] Lab Attestation statement: I reviewed the patient's lab results. . The patient has a mild anemia with a hemoglobin of 11.8 and hematocrit 37.5. Platelet count is within normal limits at 392 K. no significant electrolyte abnormalities. 08/26/23 15:33 08/26/23 15:33 Labs: Lab Results 08/26/23 08/26/23 Range/Units 15:33 21:44 WBC 5.7 (4.8-10.8) X10*3/uL RBC 4.22 (4.20-5.50) X10*6/uL Hgb 11.8 L (12.0-16.0) g/dl Hct 37.5 (37.0-47.0) % MCV 88.9 (80.0-98.0) fL MCH 28.0 (27.0-33.0) pg MCHC 31.5 (31.0-35.0) g/dl RDW 15.7 (11.0-16.0) % Plt Count 392 D (160-400) X10*3/uL MPV 9.1 L (9.4-12.3) fL Immature Gran % (Auto) 0.2 (0.0-0.4) % Neut % (Auto) 64.5 (45-73) % Lymph % (Auto) 28.4 (20-40) % [place] % (Auto) 4.6 (2-11) % Eos % (Auto) 1.9 (0-4) % Baso % (Auto) 0.4 (0-2) % Lymph # (Auto) 1.6 (1.2-4.9) X10*3/uL [place] # (Auto) 0.3 (0.1-1.2) X10*3/uL Eos # (Auto) 0.1 (0.0-0.4) X10*3/uL Baso # (Auto) 0.0 (0.0-0.2) X10*3/uL Abs Immat Gran (auto) 0.01 (0.00-0.03) X10*3/uL Absolute Neuts (auto) 3.7 (2.0-8.3) x10*3/uL Absolute Nucleated RBC 0.000 (0.0-0.012) X10*3/uL Nucleated RBC % (auto) 0.0 (0.0-0.2) /100WBC Sodium 138 (135-145) mmol/L Potassium 3.7 (3.3-5.1) mmol/L Chloride 102 (96-108) mmol/L Carbon Dioxide 25 (22-29) mmol/L Anion Gap 15 (12-20) BUN 14 (9-16) mg/dL Creatinine 0.83 (0.5-1.4) mg/dL Estim Creat Clear Calc 80.8 Estimated GFR > 60 Random Glucose 75 (60-115) mg/dL Lactic Acid 0.8 (0.5-2.0) mmol/L Calcium 10.4 H (8.4-10.2) mg/dL Magnesium 2.1 (1.6-2.6) mg/dL Total Bilirubin 0.4 (0.0-1.0) mg/dL AST 27 (5-31) U/L ALT 32 H (0-31) U/L Alkaline Phosphatase 85 (39-117) U/L Total Protein 9.3 H (6.5-8.0) g/dL Albumin 4.8 (3.5-5.0) g/dL Beta HCG, Quant < 2 mIU/mL Urine Test NEGATIVE (NEGATIVE) Urine Opiates Screen POSITIVE H (Not Detect) Ur Buprenorphine Scrn Not Detected (Not Detect) ng/mL Ur Oxycodone Screen Not Detected (Not Detect) ng/mL Urine Methadone Screen Positive H (Not Detect) ng/mL Urine Fentanyl Screen POSITIVE H (Not Detect) Ur Barbiturates Screen Not Detected (Not Detect) Ur Phencyclidine Scrn Not Detected (Not Detect) Ur Amphetamines Screen POSITIVE H (Not Detect) U Benzodiazepines Scrn POSITIVE H (Not Detect) Urine Cocaine Screen POSITIVE H (Not Detect) U Marijuana (THC) Screen Not Detected (Not Detect) Ethyl Alcohol < 10 mg/dL Discharge Plan Discharge Clinical Impression: Polysubstance abuse Patient Disposition: Home, Self-Care Instructions: Polysubstance Abuse (ED) Additional Instructions: You are leaving prior to receiving your care team evaluation. If you change your mind and requests detox, you may return at any time Your most recent blood cultures were negative for any bacteria Prescriptions: No Action nicotine (polacrilex) 4 mg gum 4 mg PO QID PRN (Reason: Nicotine Cravings) nicotine 21 mg/24 hr patch 24 hour 1 patch topical DAILY quetiapine 50 mg tablet extended release 24 hr 50 mg PO DAILY hydroxyzine HCl 25 mg tablet 25 mg PO BID PRN (Reason: Anxiety) ibuprofen 600 mg tablet 600 mg PO BID PRN (Reason: Pain) omeprazole 20 mg Capsule,Delayed Release(Dr/Ec) 20 mg PO DAILY@0630 Qty: 30 0RF daptomycin in 0.9 % sod chlor 700 mg/100 mL piggyback 600 mg IV Q24H Rx Instructions: administer over 30 mins quetiapine 300 mg tablet 300 mg PO BEDTIME gabapentin 800 mg tablet 800 mg PO TID methadone [Methadose] 10 mg/mL Concentrate 190 mg PO DAILY Referrals: Rubio Flhaerty MD [Physician] - (recent hepatitis c diagnosis) Juan Manuel Sheldon MD [Physician] - (reports abnormal pap smear) Print Language: Estonian
[2023-08-26 15:37] LABS: MANUAL DIFF FLAG NO
[2023-08-26 15:42] LABS: Basophils Percent Auto 0.4 % (0-2); Eosinophils Absolute Auto 0.1 X10*3/uL (0.0-0.4); Eosinophils Percent Auto 1.9 % (0-4); Hematocrit 37.5 % (37.0-47.0); Hemoglobin 11.8 g/dl (12.0-16.0); Imm Gran Abs Auto 0.01 X10*3/uL (0.00-0.03); Imm Gran Pct Auto 0.2 % (0.0-0.4); Lymphocytes Absolute Auto 1.6 X10*3/uL (1.2-4.9); Lymphocytes Percent Auto 28.4 % (20-40); Mean Corpuscular HGB Conc 31.5 g/dl (31.0-35.0); Mean Corpuscular Volume 88.9 fL (80.0-98.0); Mean Platelet Volume 9.1 fL (9.4-12.3); Monocytes Absolute Auto 0.3 X10*3/uL (0.1-1.2); Monocytes Percent Auto 4.6 % (2-11); Neutrophils Absolute Auto 3.7 x10*3/uL (2.0-8.3); Neutrophils Percent Auto 64.5 % (45-73); Platelet Count 392 X10*3/uL (160-400); Red Blood Count 4.22 X10*6/uL (4.20-5.50); Red Cell Distribution Width 15.7 % (11.0-16.0); White Blood Count 5.7 X10*3/uL (4.8-10.8)
[2023-08-26 15:50] LABS: Lactic Acid 0.8 mmol/L (0.5-2.0)
[2023-08-26 15:55] LABS: Alanine Aminotransferase 32 U/L (0-31); Albumin Level 4.8 g/dL (3.5-5.0); Alkaline Phosphatase 85 U/L (39-117); Anion Gap 15 (12-20); Aspartate Amino Transferase 27 U/L (5-31); Bilirubin Total 0.4 mg/dL (0.0-1.0); Blood Urea Nitrogen 14 mg/dL (9-16); Calcium 10.4 mg/dL (8.4-10.2); Carbon Dioxide 25 mmol/L (22-29); Chloride 102 mmol/L (96-108); Creatinine Clr Calc Pharmacy 80.8; Estimated Glomerular Filt Rate > 60; Glucose Random 75 mg/dL (60-115); Magnesium 2.1 mg/dL (1.6-2.6); Potassium 3.7 mmol/L (3.3-5.1); Sodium 138 mmol/L (135-145); Total Protein 9.3 g/dL (6.5-8.0)
[2023-08-26] MEDS: Ibuprofen 600 MG TABLET PO (16:57)
[2023-08-26] MEDS: diphenhydrAMINE HCL 25 MG CAPSULE PO (16:57)
--- NOTE | 2023-08-26 17:08 | MHC.RECOVSUP ---
? Reason for consult Recovery support o Current location: [facility] o Identified substance use concern: Cocain/Heroin - Seeking ATS (detox) - Support ? Intervention: o Community resources provided o Harm reduction discussion ? Plan: o Follow up tomorrow o Patient awaiting crisis evaluation o Patient to follow up with [facility] after discharge ? Additional information: Met with Patient and she stated that she would like to get help for her mental health and detox. I spoke with the care team and explain the Patient needs. and they are going to interview her. we also spoke about MAT. she stated that she had dose today. I also spoke with in charge and informed him of her MAT status,
[2023-08-26] MEDS: Gabapentin 100 MG CAPSULE 200 MG PO (17:20)
[2023-08-26] MEDS: Gabapentin 600 MG TABLET PO (17:20)
[2023-08-26 17:31] LABS: Ethanol < 10 mg/dL; HCG Quantitative < 2 mIU/mL
--- NOTE | 2023-08-26 18:24 | MHC.EDTECH ---
This pct attempted to draw second set of blood cultures but the patient states she wants something(meds) to relax her before she is drawn. RN Aware
[2023-08-26 18:27] VITALS: BP 130/91; PULSE 60; RESP 14; TEMP 36.4; O2SAT 97
--- NOTE | 2023-08-26 19:40 | PC.NURSE ---
pt requesting Seroquel, Med rec completed. provider aware
[2023-08-26] MEDS: LORazepam 1 MG TABLET PO (19:55)
--- NOTE | 2023-08-26 19:59 | PC.NURSE ---
pt medicated per MAY. pt is calm and cooperative at this time. pt is c/o hemorrhoids that are itching and bleeding and making her very comfortable
--- NOTE | 2023-08-26 20:37 | PC.NURSE ---
pt provided warm bath wipes to wash up in bathroom per request
[2023-08-26] MEDS: QUEtiapine Fumarate 300 MG TABLET PO (21:26)
[2023-08-26] MEDS: Gabapentin 400 MG CAPSULE 800 MG PO (21:26)
--- NOTE | 2023-08-26 21:31 | PC.NURSE ---
pt ate 100% of dinner. pt medicated per MAR. pt states she is starting to not feel good from abstaining from drugs. pt happy to have night time medication and states she will be able to sleep now.
[2023-08-26 21:55] LABS: UPreg QC Valid YES; Urine Pregnancy NEGATIVE (NEGATIVE)
[2023-08-26 22:01] LABS: Amphetamine Screen Urine POSITIVE (Not Detect); Barbiturates, Urine Not Detected (Not Detect); Benzodiazepines Screen Urine POSITIVE (Not Detect); Buprenorphine Scr Not Detected (Not Detect); Cannabinoid Screen Urine Not Detected (Not Detect); Cocaine Screen Urine POSITIVE (Not Detect); Fentanyl, urine POSITIVE (Not Detect); Methadone Screen, Urine Positive (Not Detect); Opiate Screen Urine POSITIVE (Not Detect); Oxycodone Screen Urine Not Detected (Not Detect); Phencyclidine Screen Urine Not Detected (Not Detect)
[2023-08-26 22:38] VITALS: BP 112/58; PULSE 97; RESP 16; TEMP 37.2; O2SAT 99
--- NOTE | 2023-08-26 22:54 | PC.NURSE ---
pt asleep face first on the stretcher while sitting up, pt arousable but would not stay awake to talk or keep eyes open, kept falling forward. pt asked to change management manager and lock up belongings that were at bedside. pt became agitated, refused and demanded to leave. pt admitted to having needles in bags but says she did not use. security and charge at bedside as well.
[2023-08-26 22:58] VITALS: BP 112/58; PULSE 97; RESP 16; TEMP 37.2; O2SAT 99
== END 2023-08-26 23:01 | disposition home or self-care (01) ==
PROVIDERS: Physician Assistant; Emergency Provider Emergency Medicine
DX: F19.10 Other psychoactive substance abuse, uncomplicated (principal); F31.9 Bipolar disorder, unspecified; F11.20 Opioid dependence, uncomplicated; F43.10 Post-traumatic stress disorder, unspecified; F14.10 Cocaine abuse, uncomplicated; F17.210 Nicotine dependence, cigarettes, uncomplicated; Z79.899 Other long term (current) drug therapy; Z86.14 Personal history of Methicillin resistant Staphylococcus aureus infection
CPT/HCPCS: 36415; 74176; 80053; 80307; 81025; 83605; 83735; 84702; 85025; 87040; 99284

== ENCOUNTER 2023-08-29 20:32 | Inpatient (IN) | payer OTHER, MEDICAID, SELFPAY ==
[2023-08-29 20:34] VITALS: BP 119/70; PULSE 79; RESP 20; TEMP 37; O2SAT 97; BMI 19.4
--- NOTE | 2023-08-29 20:39 | ED_ITS ---
HPI - Psych General Chief Complaint: Psychiatric Symptoms Stated Complaint: Crisis Time Seen by Provider: 08/29/23 21:54 Source: patient and RN notes reviewed Mode of arrival: ambulatory Limitations: no limitations History of Present Illness ED Provider: Sonia pandya NP HPI Narrative: Patient is a 38-year-old female history of untreated bipolar disorder, PTSD, anxiety/depression, opioid use disorder with active drug use presenting to the emergency department with suicidal ideation, plan to overdose on heroin. Denies homicidal ideation. Missed methadone dose today. Admits to cocaine use. Denies chest pain or dyspnea. MD complaint: suicidal ideation, feels depressed and substance abuse Onset (ago): hour(s) Duration: constant History of same: Yes Context: recent drug abuse Associated psychiatric symptoms: depression and suicidal ideation Associated symptoms: denies other symptoms Treatments prior to arrival: none If self harm: admits thoughts of self harm and has plan Related Data Home Medications ?Medication ?Instructions ?Recorded ?Confirmed methadone 10 mg/mL oral 190 mg PO DAILY 08/09/23 08/29/23 concentrate (Methadose) quetiapine 300 mg tablet 300 mg PO BEDTIME 08/09/23 08/29/23 hydroxyzine HCl 25 mg tablet 25 mg PO BID PRN Anxiety 08/12/23 08/29/23 nicotine (polacrilex) 4 mg gum 4 mg PO QID PRN Nicotine Cravings 08/12/23 08/29/23 nicotine 21 mg/24 hr daily 1 patch topical DAILY 08/12/23 08/29/23 transdermal patch ibuprofen 600 mg tablet 600 mg PO BID PRN Pain 08/16/23 08/29/23 Previous Rx's ?Medication ?Instructions ?Recorded omeprazole 20 mg capsule,delayed 20 mg PO DAILY@0630 #30 caps 08/18/23 release Allergies Allergy/AdvReac Type Severity Reaction Status Date / Time No Known Allergies Allergy Verified 08/29/23 20:38 [No Known Allergies*] Review of Systems 2 Review of Systems: As per HPI. Yes all other systems are reviewed and are negative Constitutional: Constitutional: Reports as per HPI [facility] Past Medical History Medical History Opioid use disorder, moderate, dependence Cocaine use disorder History of drug dependence/abuse Atypical bipolar disorder Opiate withdrawal Acute anxiety Drug-induced psychotic disorder Depression PTSD (post-traumatic stress disorder) Anxiety Depression Social History Social History Household Members: Other Household Members Other:: grandmother Housing: Apartment Do you presently have visiting nurse or other home services: No 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: current 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 frequency: a few times a month Alcohol type: beer, wine and hard liquor 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 Patient Tobacco Use Status: Current everyday Tobacco user Tobacco use type: Cigarette Cigarette Packs Per Day: 2 Cigarettes Per Day: 40.0 Years Smoked: 23 Second Hand Smoke Exposure: Yes Substance Use Type: Crack/Cocaine, Heroin and Marijuana Advance Directives: No Advance Directives Information Provided: Yes Do you have a plan to hurt others: No Plan service: No Current occupational status: unemployed Sexual orientation: Straight/Heterosexual Physical Exam 2 Vital Signs: Vital Signs: Last Vital Signs Temp 98.6 F 08/29/23 20:34 Pulse 79 08/29/23 20:34 Resp 20 08/29/23 20:34 BP 119/70 08/29/23 20:34 Pulse Ox 97 08/29/23 20:34 O2 Del Method Room Air 08/29/23 20:34 BMI result Body Mass Index 19.4 Vital signs have been reviewed and appear to be correct. Blood pressure normal. Heart rate normal. Respiratory rate normal. Temperature normal. Oxygen saturation normal. Const: General: cooperative and no acute distress O rientation/consciousness: oriented to person, oriented to place, oriented to time and patient oriented x3 Limitations: no limitations HEENT: Head: Yes normocephalic and Yes atraumatic Ears: external ears normal General nose exam: Normal external nose present Face and sinus: Yes face symmetric Mouth: oropharynx normal and moist mucous membranes Throat: Yes uvula midline Eyes: Pupils: Equal, round and reactive pupils present Neck: Neck: Yes normal visual inspection and Yes supple Resp: Effort & Inspection: normal respiratory effort and able to speak in complete sentences Auscultation: clear to auscultation bilaterally Cardio: Rate: regular rate Rhythm: regular rhythm Heart sounds: S1 normal heart sound present and S2 normal heart sound present GI: Palpation (GI): Soft to palpation and nontender Auscultation: n ormoactive bowel sounds : General: Yes no CVA tenderness Back/Spine/Pelvis: Back: no CVA tenderness Skin: General skin exam: elasticity normal and turgor normal Neuro: General: oriented to person, oriented to place, oriented to time, patient oriented x3, moves all extremities, no focal motor deficits and CN's II- XI intact bilaterally Cranial nerves: Yes Equal, round and reactive pupils present Cognition (Neuro): normal cognition Extrem: General: Yes full ROM, Yes no pedal edema and Yes no calf tenderness Psych: Mental Status: mental status grossly normal Attitude: cooperative Thought content: Suicidality present, no homicidality, no hallucinations and Depressive thoughts present Course Course Course Narrative: This is a Rapid Medical Examination (RME) performed by Cassidy García PA-C in triage. Full HPI, ROS, assessment and treatment plan per primary provider in the Main ED. 38 yo female with history of untreated bipolar disorder, PTSD, anxiety/depression, opioid use disorder with active drug use who presents to the ER for evaluation of ?cocaine induced psychosis. ? Patient has a plan to overdose if she had any pills. She states she has money to buy heroin but came here because she was afraid of what she might do if she obtained it. She missed her methadone dose today. Last used cocaine today. She states she has been in and out of cocaine psychosis for the last several months. She was suicidal. Plan: Medically clear then care team evaluation. Patient to order the Behavioral pod Medical Decision Making Medical Decision Making [facility] Narrative: Patient is a 38-year-old female history of untreated bipolar disorder, PTSD, anxiety/depression, opioid use disorder with active drug use presenting to the emergency department with suicidal ideation, plan to overdose on heroin. On exam patient is awake, A+Ox3, VS WNL, afebrile, normal neurological exam without focal deficits, physical exam findings as above. Given reported symptoms and physical exam findings, initial differential includes bipolar disorder, depression, suicidal ideation. Last dose of methadone verified by RN, patient received yesterday and missed today's dose. Labs grossly within normal limits. No evidence of infection on urinalysis. Urine drug screen positive for opiates, methadone, fentanyl and cocaine. Ethanol 67. Will clear patient medically for care team evaluation and place on physician observation at 11:40 p.m. on 08/29/2023. Differential Diagnosis Differential Diagnoses: The differential diagnosis associated with the presentation includes As per MDM. Admission/Observation Consideration of admission/observation: Escalation of care including admission/observation considered Consult Healthcare Provider Management of the patient was discussed with: Behavioral Health Provider Lab Data [facility] Lab Attestation statement: I reviewed the patient's lab results. As per MDM. 08/29/23 22:21 08/29/23 22:21 Labs: Lab Results 08/29/23 08/29/23 Range/Units 22:21 23:19 WBC 5.3 (4.8-10.8) X10*3/uL RBC 3.61 L (4.20-5.50) X10*6/uL Hgb 10.1 L (12.0-16.0) g/dl Hct 32.1 L (37.0-47.0) % MCV 88.9 (80.0-98.0) fL MCH 28.0 (27.0-33.0) pg MCHC 31.5 (31.0-35.0) g/dl RDW 15.7 (11.0-16.0) % Plt Count 331 (160-400) X10*3/uL MPV 8.9 L (9.4-12.3) fL Immature Gran % (Auto) 0.0 (0.0-0.4) % Neut % (Auto) 46.1 (45-73) % Lymph % (Auto) 41.7 H (20-40) % [place] % (Auto) 7.4 (2-11) % Eos % (Auto) 4.4 H (0-4) % Baso % (Auto) 0.4 (0-2) % Lymph # (Auto) 2.2 (1.2-4.9) X10*3/uL [place] # (Auto) 0.4 (0.1-1.2) X10*3/uL Eos # (Auto) 0.2 (0.0-0.4) X10*3/uL Baso # (Auto) 0.0 (0.0-0.2) X10*3/uL Abs Immat Gran (auto) 0.00 (0.00-0.03) X10*3/uL Absolute Neuts (auto) 2.4 (2.0-8.3) x10*3/uL Absolute Nucleated RBC 0.000 (0.0-0.012) X10*3/uL Nucleated RBC % (auto) 0.0 (0.0-0.2) /100WBC Sodium 143 (135-145) mmol/L Potassium 3.4 (3.3-5.1) mmol/L Chloride 107 (96-108) mmol/L Carbon Dioxide 23 (22-29) mmol/L Anion Gap 16 (12-20) BUN 13 (9-16) mg/dL Creatinine 0.76 (0.5-1.4) mg/dL Estim Creat Clear Calc 87.0 Estimated GFR > 60 Random Glucose 108 (60-115) mg/dL Calcium 9.6 D (8.4-10.2) mg/dL Magnesium 2.2 (1.6-2.6) mg/dL Total Bilirubin 0.2 (0.0-1.0) mg/dL Direct Bilirubin < 0.2 (0.0-0.5) mg/dL AST 29 (5-31) U/L ALT 21 (0-31) U/L Alkaline Phosphatase 74 (39-117) U/L Total Protein 7.7 (6.5-8.0) g/dL Albumin 4.1 (3.5-5.0) g/dL Urine Color Yellow Urine Appearance Clear Urine pH 5.5 (5.0-9.0) Ur Specific [place] >= 1.030 H (1.005-1.025) Urine Protein Negative (Neg-Trace) mg/dL Urine Glucose (UA) Negative (Negative) mg/dL Urine Ketones Trace (Negative) mg/dL Urine Blood Negative (Negative) Urine Nitrite Negative (Negative) Ur Leukocyte Esterase Negative (Negative) Urine Test NEGATIVE (NEGATIVE) Ethyl Alcohol 67 mg/dL External Record Review External record reviewed: Inpatient record, Office record and Outpatient record Discharge Plan Discharge Clinical Impression: Suicidal ideation, Polysubstance abuse Patient Disposition: Still a Patient Prescriptions: No Action nicotine (polacrilex) 4 mg gum 4 mg PO QID PRN (Reason: Nicotine Cravings) nicotine 21 mg/24 hr patch 24 hour 1 patch topical DAILY hydroxyzine HCl 25 mg tablet 25 mg PO BID PRN (Reason: Anxiety) ibuprofen 600 mg tablet 600 mg PO BID PRN (Reason: Pain) omeprazole 20 mg Capsule,Delayed Release(Dr/Ec) 20 mg PO DAILY@0630 Qty: 30 0RF quetiapine 300 mg tablet 300 mg PO BEDTIME methadone [Methadose] 10 mg/mL Concentrate 190 mg PO DAILY Patient Comments: Verfieid by clint from [facility] center for [facility]. Phone number [phone] Interventions: [place]-Suicide Risk Severity Scale Last Done: 08/29/23 22:23 Print Language: Palauan
[2023-08-29 22:29] LABS: MANUAL DIFF FLAG NO
[2023-08-29 22:34] LABS: Basophils Percent Auto 0.4 % (0-2); Eosinophils Absolute Auto 0.2 X10*3/uL (0.0-0.4); Eosinophils Percent Auto 4.4 % (0-4); Hematocrit 32.1 % (37.0-47.0); Hemoglobin 10.1 g/dl (12.0-16.0); Lymphocytes Absolute Auto 2.2 X10*3/uL (1.2-4.9); Lymphocytes Percent Auto 41.7 % (20-40); Mean Corpuscular HGB Conc 31.5 g/dl (31.0-35.0); Mean Corpuscular Volume 88.9 fL (80.0-98.0); Mean Platelet Volume 8.9 fL (9.4-12.3); Monocytes Absolute Auto 0.4 X10*3/uL (0.1-1.2); Monocytes Percent Auto 7.4 % (2-11); Neutrophils Absolute Auto 2.4 x10*3/uL (2.0-8.3); Neutrophils Percent Auto 46.1 % (45-73); Platelet Count 331 X10*3/uL (160-400); Red Blood Count 3.61 X10*6/uL (4.20-5.50); Red Cell Distribution Width 15.7 % (11.0-16.0); White Blood Count 5.3 X10*3/uL (4.8-10.8)
[2023-08-29 22:46] LABS: Alanine Aminotransferase 21 U/L (0-31); Albumin Level 4.1 g/dL (3.5-5.0); Alkaline Phosphatase 74 U/L (39-117); Anion Gap 16 (12-20); Aspartate Amino Transferase 29 U/L (5-31); Bilirubin Direct < 0.2 mg/dL (0.0-0.5); Bilirubin Total 0.2 mg/dL (0.0-1.0); Blood Urea Nitrogen 13 mg/dL (9-16); Calcium 9.6 mg/dL (8.4-10.2); Carbon Dioxide 23 mmol/L (22-29); Chloride 107 mmol/L (96-108); Estimated Glomerular Filt Rate > 60; Ethanol 67 mg/dL; Glucose Random 108 mg/dL (60-115); Magnesium 2.2 mg/dL (1.6-2.6); Potassium 3.4 mmol/L (3.3-5.1); Sodium 143 mmol/L (135-145); Total Protein 7.7 g/dL (6.5-8.0)
[2023-08-29 23:28] LABS: Appearance Urine Clear; Color Urine Yellow; Glucose Urine UA Negative (Negative); Leukocyte Esterase Urine Negative (Negative); Nitrite Urine Negative (Negative); PH 5.5 (5.0-9.0); Specific Gravity - Urine >= 1.030 (1.005-1.025); Urine Blood Negative (Negative); Urine Ketones Trace mg/dL (Negative); Urine Protein Negative (Neg-Trace)
[2023-08-29 23:29] LABS: UPreg QC Valid YES; Urine Pregnancy NEGATIVE (NEGATIVE)
[2023-08-29 23:39] LABS: Amphetamine Screen Urine Not Detected (Not Detect); Barbiturates, Urine Not Detected (Not Detect); Benzodiazepines Screen Urine Not Detected (Not Detect); Buprenorphine Scr Not Detected (Not Detect); Cannabinoid Screen Urine Not Detected (Not Detect); Cocaine Screen Urine POSITIVE (Not Detect); Fentanyl, urine POSITIVE (Not Detect); Methadone Screen, Urine Positive (Not Detect); Opiate Screen Urine POSITIVE (Not Detect); Oxycodone Screen Urine Not Detected (Not Detect); Phencyclidine Screen Urine Not Detected (Not Detect)
[2023-08-30 06:00] VITALS: RESP 16
--- NOTE | 2023-08-30 06:47 | HE.PHANOTE ---
METHADONE Methadone verification received. Patient dose is 190 mg at [facility] in [place] per lcint. Last dose was 08/28/23.
--- NOTE | 2023-08-30 06:53 | PC.NURSE ---
Patient slept through the night, no distress observed/reported, no behavior issues this time but extremely labile per history, med rec completed including her methadone dose, pending provider's approval, VSS, care consult ordered pending evaluation, will continue to monitor
--- NOTE | 2023-08-30 07:33 | PC.NURSE ---
Assumed care of patient at 0645, patient up and ambulating with steady gait around BH pod, requesting methadone and gabapentin. Med rec completed by previous RN Oral, reviewed and let MD Talley know that medications are ready to be ordered. Patient reporting to this RN that it is too cold, blankets offered. TV station changed for patient, patient requested additional sugar for breakfast which was provided as well. Patient is pending CARE team assessment
[2023-08-30] MEDS: methADONE HCl 20 MG/2 ML ORAL.CONC 190 MG PO (09:25)
[2023-08-30] MEDS: Gabapentin 400 MG CAPSULE 800 MG PO ×3 (09:25→20:13)
[2023-08-30] MEDS: Nicotine 21 MG PATCH.TD24 TRANSDERMA (09:29)
--- NOTE | 2023-08-30 11:51 | MHC.CARE ---
Pt is a dual dx bedsearch. CARE team contacted [facility], [facility] and [facility]- no beds available today. Referral faxed to [facility] as they report they will have bed tomorrow.
[2023-08-30] MEDS: hydrOXYzine HCL 25 MG TABLET PO (15:35)
[2023-08-30 15:41] VITALS: BP 135/95; PULSE 65; RESP 18; TEMP 37.5; O2SAT 98
--- NOTE | 2023-08-30 16:22 | PC.NURSE ---
Patient continues to have uneventful day, asking for food and beverages frequently and napping often. Offers no complaints at this time. Provided with PRN Hydroxyzine per request
--- NOTE | 2023-08-30 19:54 | PC.NURSE ---
this rn assumed care of pt, pt resting in bed, no acute distress noted. respirations even and unlabored.
[2023-08-30] MEDS: QUEtiapine Fumarate 300 MG TABLET PO (20:13)
--- NOTE | 2023-08-30 20:15 | PC.NURSE ---
pt medicated per mar, pt tolerated well with water.
--- NOTE | 2023-08-30 22:07 | PC.NURSE ---
pt ambulated to bathroom with steady gait, pt requesting snacks at this time. pt given snacks per request.
--- NOTE | 2023-08-31 | ECG_ITS ---
Test Reason : prolonged qtc Blood Pressure : / mmHG Vent. Rate : 065 BPM Atrial Rate : 065 BPM P-R Int : 132 ms QRS Dur : 088 ms QT Int : 458 ms P-R-T Axes : 038 -27 013 degrees QTc Int : 476 ms Normal sinus rhythm Normal ECG When compared with ECG of 13-AUG-2023 09:24, No significant change was found Referred By: Generic ED Physician Electronically Signed By:LEON FERNANDES MD
[2023-08-31] MEDS: Omeprazole 20 MG CAPSULE.DR PO (06:05)
--- NOTE | 2023-08-31 06:07 | PC.NURSE ---
pt medicated per mar, tolerated well with water.
[2023-08-31 06:14] VITALS: BP 117/80; PULSE 59; RESP 19; TEMP 36.8; O2SAT 97
--- NOTE | 2023-08-31 07:01 | PC.NURSE ---
Assumed care of patient at 0645. Patient is observed resting quietly in their bed. No signs of distress observed. Breathing is even and unlabored. Will continue plan of care.
[2023-08-31] MEDS: Nicotine 21 MG PATCH.TD24 TRANSDERMA (08:37)
[2023-08-31] MEDS: methADONE HCl 20 MG/2 ML ORAL.CONC 190 MG PO (08:37)
[2023-08-31] MEDS: Gabapentin 400 MG CAPSULE 800 MG PO ×3 (08:37→20:26)
[2023-08-31] MEDS: hydrOXYzine HCL 25 MG TABLET PO ×3 (10:00→23:58)
--- NOTE | 2023-08-31 14:14 | MHC.CARE ---
CARE Team to complete Section 35 paperwork in collaboration with ED provider Dr. Oviedo.
[2023-08-31 15:16] VITALS: BP 136/88; PULSE 66; RESP 16; TEMP 36.2; O2SAT 98
[2023-08-31 15:23] VITALS: BMI 22.4
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
[2023-08-31] MEDS: Cyclobenzaprine HCl 5 MG TABLET PO ×2 (16:28→23:58)
[2023-08-31 16:29] VITALS: BP 136/88
[2023-08-31] MEDS: cloNIDine HCL 0.1 MG TABLET PO ×2 (16:29→20:26)
[2023-08-31] MEDS: Ibuprofen 600 MG TABLET PO (16:30)
--- NOTE | 2023-08-31 17:25 | PC.ADMIT ---
Nursing admission note: 38 year old female DX: PTSD, Cocaine use disorder, Opioid use disorder. Referred for treatment by CARE team. Signed conditional voluntary for admission, submitted 3 day note. Patient self presented to ED for complaint of MRSA symptoms and suicidal ideation. Patient A+O x4. Cooperative with admission process however irritable stating she was in withdrawal . Patient observed to nod off several times during admission assessment. No overt symptoms of withdrawal at this time. Reports depressed mood, anxiety, denies SI/HI at this time. Thoughts linear and organized, endorses racing thoughts. Responds appropriately to assessment questions however frequently asks are we almost done . Denies A/V hallucinations, no overt psychosis or expressed delusions. Presents with intermittent eye contact, disheveled, hospital attire, currently has menses. Speech normal rate, tone, volume, en. Denies sleep or appetite disturbances. NKA. Medical history per patient HEP C. Skin check completed, multiple scarred areas over legs, arms and trunk. No open areas observed. TOX screen positive for opiate, Fentanyl, Cocaine and Methadone. Received Methadone today, dose verified in ED. Reports using 3-4 bundles of Heroin daily for unknown time period, 100.00 -150.00 daily of crack cocaine daily for unknown time period. Last use couple days ago . Ethanol 67, reports infrequent use of alcohol. Patient smokes 1-2 packs of cigarettes daily, NRT ordered. Denies current legal involvement. Patient oriented to unit, placed on unit safety checks. See nursing assessment, crisis evaluation for complete details.
--- NOTE | 2023-08-31 18:15 | PC.NURSE ---
Patient submitted 3 day notice.
[2023-08-31 19:52] VITALS: BP 100/58; PULSE 58; RESP 16; TEMP 36.8; O2SAT 97
[2023-08-31] MEDS: QUEtiapine Fumarate 300 MG TABLET PO (20:26)
[2023-08-31] MEDS: Acetaminophen 325 MG TABLET 650 MG PO (20:31)
[2023-08-31] MEDS: traZODone HCL 50 MG TABLET PO (20:31)
[2023-09-01] MEDS: Cyclobenzaprine HCl 5 MG TABLET PO ×3 (05:26→21:24)
[2023-09-01] MEDS: Acetaminophen 325 MG TABLET 650 MG PO ×2 (05:26→11:25)
[2023-09-01] MEDS: hydrOXYzine HCL 25 MG TABLET PO ×2 (05:26→21:26)
[2023-09-01] MEDS: Omeprazole 20 MG CAPSULE.DR PO (05:26)
--- NOTE | 2023-09-01 08:56 | P.PNPSI_ITS ---
Subjective Subjective Date of Service: 09/01/23 Reason For Visit: Crisis Subjective Notes: 3 Day Interim History: Reviewed with Dr. Price. observed laying in bed. guarded. irritable. Pt stated, I feel like shit because I'm detoxing. I don't want to talk . Pt encouraged to utilize PRN medications. pt denies SI/HI/VH/AH. Medication Compliance: Yes Side effects from medications: No Attending Groups: No Review of Systems Constitutional: Reports as per HPI Eyes: Reports as per HPI Reports as per HPI Cardiovascular: Reports as per HPI Respiratory: Reports as per HPI Gastrointestinal: Reports as per HPI Musculoskeletal: Reports as per HPI Skin/Breast: Reports as per HPI Reports as per HPI Psychiatric: Reports as per HPI Endocrine: Reports as per HPI Hematologic/Lymphatic: Reports as per HPI Allergic/Immunologic: Reports as per HPI Mental Status Exam Mental Status Exam Narrative: Pt is alert and oriented; behavior is irritable; dressed in hospital attire; mood is described as bad ;eye contact appropriate; Speech is normal rate, volume and not pressured; thought process is organized,guarded ; Thought content is on tx;; denies SI/HI/VH/AH Diagnostics Vital Signs (24Hr): Vital Signs - 24 hr 08/31/23 15:16 08/31/23 16:29 08/31/23 19:52 Temperature 97.1 F 98.2 F Pulse Rate 66 58 Respiratory Rate 16 16 Blood Pressure 136/88 136/88 100/58 L Pulse Oximetry 98 97 Oxygen Delivery Method Room Air Room Air BMI result Body Mass Index 22.4 Labs 08/29/23 22:21 08/29/23 22:21 Medications Medications Current Medications Acetaminophen (Acetaminophen 325 Mg Tablet) 650 mg PO Q6H PRN PRN Reason: Headache/Pain Mild Scale (1-3) Last Admin: 09/01/23 05:26 Dose: 650 mg Al Hydroxide/Mg Hydroxide (Magnesium Hydrox/Alum Hydrox 30 Ml Oral.Susp) 30 ml PO Q6H PRN PRN Reason: Heartburn/Nausea Clonidine HCl (Clonidine Hcl 0.1 Mg Tablet) 0.1 mg PO TID JAIR; Protocol Last Admin: 08/31/23 20:26 Dose: 0.1 mg Cyclobenzaprine HCl (Cyclobenzaprine Hcl 5 Mg Tablet) 5 mg PO TID PRN PRN Reason: Muscle Spasm Last Admin: 09/01/23 05:26 Dose: 5 mg Gabapentin (Gabapentin 400 Mg Capsule) 800 mg PO TID [facility] Last Admin: 08/31/23 20:26 Dose: 800 mg Hydroxyzine HCl (Hydroxyzine Hcl 25 Mg Tablet) 25 mg PO Q6H PRN PRN Reason: Anxiety Last Admin: 09/01/23 05:26 Dose: 25 mg Ibuprofen (Ibuprofen 600 Mg Tablet) 600 mg PO Q6H PRN PRN Reason: Pain, Moderate(Pain Scale 4-6) Last Admin: 09/01/23 00:00 Dose: 600 mg Loperamide HCl (Loperamide Hcl 2 Mg Capsule) 4 mg PO Q6H PRN PRN Reason: Loose Stool Magnesium Hydroxide (Milk Of Magnesia 30 Ml Oral.Susp) 30 ml PO DAILY PRN PRN Reason: Constipation Methadone HCl (Methadone Hcl 20 Mg/2 Ml Oral.Conc) 190 mg PO DAILY [facility] Nicotine (Nicotine 21 Mg Patch.Td24) 21 mg TRANSDERMA DAILY [facility] Last Admin: 08/31/23 08:37 Dose: 21 mg Nicotine Polacrilex (Nicotine Polacrilex 2 Mg Gum) 4 mg BUCCAL QID PRN PRN Reason: Nicotine Cravings Omeprazole (Omeprazole 20 Mg Capsule.Dr) 20 mg PO DAILY@0630 [facility] Last Admin: 09/01/23 05:26 Dose: 20 mg Ondansetron HCl (Ondansetron Odt 8 Mg Tab.Rapdis) 8 mg TRANSLINGU Q12H PRN PRN Reason: Nausea and Vomiting Quetiapine Fumarate (Quetiapine Fumarate 300 Mg Tablet) 300 mg PO BEDTIME [facility] Last Admin: 08/31/23 20:26 Dose: 300 mg Quetiapine Fumarate (Quetiapine Fumarate 50 Mg Tablet) 50 mg PO DAILY [facility] Trazodone HCl (Trazodone Hcl 50 Mg Tablet) 50 mg PO BEDTIME MRX1 PRN PRN Reason: Insomnia Last Admin: 09/01/23 00:00 Dose: 50 mg Allergies Allergies Allergy/AdvReac Type Severity Reaction Status Date / Time No Known Allergies Allergy Verified 08/29/23 20:38 [No Known Allergies*] Assessment & Plan Assessment & Plan (1) MDD (major depressive disorder), recurrent episode: Status: Inactive Code(s): F33.9 - Major depressive disorder, recurrent, unspecified (2) PTSD (post-traumatic stress disorder): Status: Acute Code(s): F43.10 - Post-traumatic stress disorder, unspecified (3) Cocaine use disorder: Status: Acute Code(s): F14.10 - Cocaine abuse, uncomplicated (4) Opiate abuse, continuous: Status: Acute Code(s): F11.10 - Opioid abuse, uncomplicated Plan Patient is a 38 year old female with hx of MDD, PTSD, cocaine use d/o, and opioid use d/o who self presented [place] [facility] d/t suicidal ideation secondary to pain and discomfort. Plan: CV/ pt signed 3 day notice 15 minute safety checks Addiction medicine consult for assistant baseball coach discharge planning Start: clonidine 0.1mg PO TID Zofran 8mg Q12hr PRN Flexeril 5mg PO TID PRN Ibuprofen 600mg PO Q6hr PRN Imodium 4mg PO Q6hr PRN Continue: Gabapentin 800mg PO TID Seroquel 300mg PO bedtime Seroquel 50mg PO daily /: observed laying in bed. guarded. irritable. Pt stated, I feel like shit because I'm detoxing. I don't want to talk . Pt encouraged to utilize PRN medications. pt denies SI/HI/VH/AH. continue current tx plan. Patient educated on: diagnosis and medication risk/benefits Informed Consent: understands Reason for continued inpatient stay Substantial Risk for: med/psych decompensation Time Spent With Patient Time: Total time managing care of this patient today _20___ minutes.
[2023-09-01 09:00] VITALS: BP 118/82; PULSE 73; RESP 16; TEMP 36.4
[2023-09-01] MEDS: Nicotine 21 MG PATCH.TD24 TRANSDERMA (09:12)
[2023-09-01] MEDS: methADONE HCl 20 MG/2 ML ORAL.CONC 190 MG PO (09:13)
[2023-09-01] MEDS: QUEtiapine Fumarate 50 MG TABLET PO (09:16)
[2023-09-01] MEDS: Gabapentin 400 MG CAPSULE 800 MG PO ×3 (09:16→21:26)
[2023-09-01 09:17] VITALS: BP 118/82
[2023-09-01] MEDS: cloNIDine HCL 0.1 MG TABLET PO ×2 (09:17→21:26)
[2023-09-01] MEDS: Ondansetron ODT 8 MG TAB.RAPDIS TRANSLINGU (09:27)
[2023-09-01] MEDS: Ibuprofen 600 MG TABLET PO ×2 (09:27)
[2023-09-01 09:50] LABS: Bacterial Vaginosis PCR NEGATIVE (Negative); Candida Group PCR NOT DETECTED (Not Detect); Candida glab krusei PCR DETECTED (Not Detect); Trichomonas vaginalis PCR NOT DETECTED (Not Detect)
[2023-09-01 10:33] LABS: CT PCR NOT DETECTED (Not Detect.); NG PCR NOT DETECTED (Not Detect.)
--- NOTE | 2023-09-01 11:28 | PC.NURSE ---
Pt c/o 11/06 generalized pain d/t withdrawals. Pt requested Tylenol. Pt educated that pain scale is for 1-3 but pt still requested to take it since ibuprofen was ineffective, provider aware.
[2023-09-01 15:04] VITALS: BP 98/56; PULSE 57
--- NOTE | 2023-09-01 15:07 | PC.NURSE ---
Pt's BP 98/56 HR 57,1500 clonidine held per provider. RN encouraged pt to drink fluids but pt refused and stated I have my coffee I don't want anything else.
[2023-09-01 20:00] VITALS: BP 97/71; PULSE 62; RESP 16; TEMP 36.3; O2SAT 98
[2023-09-01] MEDS: traZODone HCL 50 MG TABLET PO ×2 (21:25)
[2023-09-01] MEDS: QUEtiapine Fumarate 300 MG TABLET PO (21:25)
[2023-09-01 21:26] VITALS: BP 97/71
[2023-09-02] MEDS: Cyclobenzaprine HCl 5 MG TABLET PO ×3 (05:13→20:12)
[2023-09-02] MEDS: Ibuprofen 600 MG TABLET PO ×3 (05:14→20:10)
[2023-09-02] MEDS: hydrOXYzine HCL 25 MG TABLET PO ×3 (05:14→20:10)
[2023-09-02] MEDS: Omeprazole 20 MG CAPSULE.DR PO (05:14)
[2023-09-02 07:56] VITALS: BP 117/73; PULSE 61; RESP 14; TEMP 36.7; O2SAT 96
[2023-09-02] MEDS: QUEtiapine Fumarate 50 MG TABLET PO (08:29)
[2023-09-02 08:30] VITALS: BP 117/73
[2023-09-02] MEDS: cloNIDine HCL 0.1 MG TABLET PO ×3 (08:30→20:11)
[2023-09-02] MEDS: Nicotine 21 MG PATCH.TD24 TRANSDERMA (08:30)
[2023-09-02] MEDS: Gabapentin 400 MG CAPSULE 800 MG PO ×3 (08:30→20:09)
[2023-09-02] MEDS: methADONE HCl 20 MG/2 ML ORAL.CONC 190 MG PO (08:31)
--- NOTE | 2023-09-02 09:20 | MHC.CARE ---
CARE Team assisted Dr. Sharpe in completion of a [address] Per [place] [address] section 35 warrant will be issued. CARE Team notified Edwige Cutler inpatient social work and Keith RENAE
--- NOTE | 2023-09-02 10:39 | P.PNPSI_ITS ---
Subjective Subjective Date of Service: 09/02/23 Reason For Visit: Crisis Subjective Notes: 3 Day Interim History: Reviewed with Dr. Price. Observed sitting in mileu. keeping to self. Pt continues to report feeling depressed ; pt stated, I know that if I left here today that I would use again. I want to stay clean. I'm trying to think about my future. I'm going to try to start going to groups tomorrow . Pt reports not feeling well; pt stated, I feel like shit because I'm detoxing . Pt encouraged to utilize PRN medications. pt denies SI/HI/VH/AH. On 09/02/23, Per note from CHARO Murphy, CARE Team assisted Dr. Sharpe in completion of a [address] section 35 warrant will be issued. Medication Compliance: Yes Side effects from medications: No Attending Groups: No Review of Systems Constitutional: Reports as per HPI Eyes: Reports as per HPI Reports as per HPI Cardiovascular: Reports as per HPI Respiratory: Reports as per HPI Gastrointestinal: Reports as per HPI Genitourinary: Reports as per HPI Musculoskeletal: Reports as per HPI Skin/Breast: Reports as per HPI Reports as per HPI Psychiatric: Reports as per HPI Endocrine: Reports as per HPI Hematologic/Lymphatic: Reports as per HPI Allergic/Immunologic: Reports as per HPI Mental Status Exam Mental Status Exam Narrative: Pt is alert and oriented; behavior is irritable; dressed in hospital attire; mood is described as depressed ;eye contact appropriate; Speech is normal rate, volume and not pressured; thought process is organized, future oriented ; Thought content is on tx; denies SI/HI/VH/AH Diagnostics Vital Signs (24Hr): Vital Signs - 24 hr 09/01/23 15:04 09/01/23 20:00 09/01/23 21:26 Temperature 97.3 F Pulse Rate 57 62 Respiratory Rate 16 Blood Pressure 98/56 L 97/71 97/71 Pulse Oximetry 98 Oxygen Delivery Method Room Air 09/02/23 07:56 09/02/23 08:30 Temperature 98.1 F Pulse Rate 61 Respiratory Rate 14 Blood Pressure 117/73 117/73 Pulse Oximetry 96 Oxygen Delivery Method Room Air BMI result Body Mass Index 22.4 Labs 08/29/23 22:21 08/29/23 22:21 Labs: Laboratory Results - last 48 hr 08/31/23 19:00 Chlam trachomat DNA PCR NOT DETECTED N.gonorrhoeae DNA (PCR) NOT DETECTED T. vaginalis (PCR) NOT DETECTED Bact Vaginosis (PCR) NEGATIVE C. krusei/glabrata (PCR) DETECTED A Gayatri group (PCR) NOT DETECTED Medications Medications Current Medications Acetaminophen (Acetaminophen 325 Mg Tablet) 650 mg PO Q6H PRN PRN Reason: Headache/Pain Mild Scale (1-3) Last Admin: 09/01/23 11:25 Dose: 650 mg Al Hydroxide/Mg Hydroxide (Magnesium Hydrox/Alum Hydrox 30 Ml Oral.Susp) 30 ml PO Q6H PRN PRN Reason: Heartburn/Nausea Clonidine HCl (Clonidine Hcl 0.1 Mg Tablet) 0.1 mg PO TID [facility]; Protocol Last Admin: 09/02/23 08:30 Dose: 0.1 mg Cyclobenzaprine HCl (Cyclobenzaprine Hcl 5 Mg Tablet) 5 mg PO TID PRN PRN Reason: Muscle Spasm Last Admin: 09/02/23 05:13 Dose: 5 mg Gabapentin (Gabapentin 400 Mg Capsule) 800 mg PO TID [facility] Last Admin: 09/02/23 08:30 Dose: 800 mg Hydroxyzine HCl (Hydroxyzine Hcl 25 Mg Tablet) 25 mg PO Q6H PRN PRN Reason: Anxiety Last Admin: 09/02/23 05:14 Dose: 25 mg Ibuprofen (Ibuprofen 600 Mg Tablet) 600 mg PO Q6H PRN PRN Reason: Pain, Moderate(Pain Scale 4-6) Last Admin: 09/02/23 05:14 Dose: 600 mg Loperamide HCl (Loperamide Hcl 2 Mg Capsule) 4 mg PO Q6H PRN PRN Reason: Loose Stool Magnesium Hydroxide (Milk Of Magnesia 30 Ml Oral.Susp) 30 ml PO DAILY PRN PRN Reason: Constipation Methadone HCl (Methadone Hcl 20 Mg/2 Ml Oral.Conc) 190 mg PO DAILY [facility] Last Admin: 09/02/23 08:31 Dose: 190 mg Nicotine (Nicotine 21 Mg Patch.Td24) 21 mg TRANSDERMA DAILY [facility] Last Admin: 09/02/23 08:30 Dose: 21 mg Nicotine Polacrilex (Nicotine Polacrilex 2 Mg Gum) 4 mg BUCCAL QID PRN PRN Reason: Nicotine Cravings Omeprazole (Omeprazole 20 Mg Capsule.Dr) 20 mg PO DAILY@30 [facility] Last Admin: 09/02/23 05:14 Dose: 20 mg Ondansetron HCl (Ondansetron Odt 8 Mg Tab.Rapdis) 8 mg TRANSLINGU Q12H PRN PRN Reason: Nausea and Vomiting Last Admin: 09/01/23 09:27 Dose: 8 mg Quetiapine Fumarate (Quetiapine Fumarate 300 Mg Tablet) 300 mg PO BEDTIME [facility] Last Admin: 09/01/23 21:25 Dose: 300 mg Quetiapine Fumarate (Quetiapine Fumarate 50 Mg Tablet) 50 mg PO DAILY [facility] Last Admin: 09/02/23 08:29 Dose: 50 mg Trazodone HCl (Trazodone Hcl 50 Mg Tablet) 50 mg PO BEDTIME MRX1 PRN PRN Reason: Insomnia Last Admin: 09/01/23 21:25 Dose: 50 mg Allergies Allergies Allergy/AdvReac Type Severity Reaction Status Date / Time No Known Allergies Allergy Verified 08/29/23 20:38 [No Known Allergies*] Assessment & Plan Assessment & Plan (1) MDD (major depressive disorder), recurrent episode: Status: Inactive Code(s): F33.9 - Major depressive disorder, recurrent, unspecified (2) PTSD (post-traumatic stress disorder): Status: Acute Code(s): F43.10 - Post-traumatic stress disorder, unspecified (3) Cocaine use disorder: Status: Acute Code(s): F14.10 - Cocaine abuse, uncomplicated (4) Opiate abuse, continuous: Status: Acute Code(s): F11.10 - Opioid abuse, uncomplicated Plan Patient is a 38 year old female with hx of MDD, PTSD, cocaine use d/o, and opioid use d/o who self presented to [facility] ER d/t suicidal ideation secondary to pain and discomfort. Plan: CV/ pt signed 3 day notice 15 minute safety checks Addiction medicine consult for asset recovery specialist discharge planning Start: clonidine 0.1mg PO TID Zofran 8mg Q12hr PRN Flexeril 5mg PO TID PRN Ibuprofen 600mg PO Q6hr PRN Imodium 4mg PO Q6hr PRN Continue: Gabapentin 800mg PO TID Seroquel 300mg PO bedtime Seroquel 50mg PO daily 08/31: observed laying in bed. guarded. irritable. Pt stated, I feel like shit because I'm detoxing. I don't want to talk . Pt encouraged to utilize PRN medications. pt denies SI/HI/VH/AH. continue current tx plan. 09/01: Observed sitting in mileu. keeping to self. Pt continues to report feeling depressed ; pt stated, I know that if I left here today that I would use again. I want to stay clean. I'm trying to think about my future. I'm going to try to start going to groups tomorrow . Pt reports not feeling well; pt stated, I feel like shit because I'm detoxing . Pt encouraged to utilize PRN medications. pt denies SI/HI/VH/AH. On 09/02/23, Per note from CHARO Murphy, CARE Team assisted Dr. Sharpe in completion of a [address] [place] 35 warrant will be issued. Patient educated on: diagnosis, medication risk/benefits, substance abuse and therapeutic strategies Informed Consent: understands Reason for continued inpatient stay Substantial Risk for: med/psych decompensation Time Spent With Patient Time: Total time managing care of this patient today _20___ minutes.
[2023-09-02 15:34] VITALS: BP 112/72; PULSE 70
[2023-09-02 15:41] VITALS: BP 112/72
[2023-09-02] MEDS: Acetaminophen 325 MG TABLET 650 MG PO (15:41)
--- NOTE | 2023-09-02 15:42 | PC.NURSE ---
pt requested tylenol for 10/06 generalized pain, pt informed of 1-3 pain scale, pt still requested to take medication, provider aware and approved administering outside pain scale parameters
[2023-09-02] MEDS: Fluconazole 150 MG TABLET PO (17:50)
[2023-09-02] MEDS: Benzocaine 20 % Oral Gel 9 GM TUBE 1 APPL MUCOUS MEM (18:14)
--- NOTE | 2023-09-02 18:56 | MHC.RECOVSUP ---
? Reason for consult Recovery support o Current location: [facility] o Identified substance use concern: heroin - Support ? Intervention: o Community resources provided o Harm reduction discussion ? Plan: o Patient to follow up with [facility] after discharge ? Additional information: met with Patient and we talked about recovery and Harm reduction. We had a good talk about MAT. Patient stated that she feels like she needs to go up on the MAT due to still going through withdrawal. And that she wants further in patient treatment T.S.S or C.S.S. Stating that she cant go home cause she does not want to use anymore.
[2023-09-02 20:06] VITALS: BP 124/80; PULSE 63; RESP 16; TEMP 36.4; O2SAT 98
[2023-09-02] MEDS: QUEtiapine Fumarate 300 MG TABLET PO (20:10)
[2023-09-02 20:11] VITALS: BP 124/80
[2023-09-02] MEDS: traZODone HCL 50 MG TABLET PO (20:12)
[2023-09-03] MEDS: hydrOXYzine HCL 25 MG TABLET PO (02:17)
[2023-09-03] MEDS: Acetaminophen 325 MG TABLET 650 MG PO (02:17)
[2023-09-03] MEDS: Benzocaine 20 % Oral Gel 9 GM TUBE 1 APPL MUCOUS MEM (02:17)
[2023-09-03] MEDS: traZODone HCL 50 MG TABLET PO (02:17)
[2023-09-03] MEDS: Omeprazole 20 MG CAPSULE.DR PO (06:41)
[2023-09-03] MEDS: Ibuprofen 600 MG TABLET PO (06:41)
[2023-09-03 08:22] VITALS: BP 115/69; PULSE 64; RESP 16; TEMP 37.4; O2SAT 98
[2023-09-03] MEDS: Nicotine 21 MG PATCH.TD24 TRANSDERMA (08:36)
[2023-09-03] MEDS: Gabapentin 400 MG CAPSULE 800 MG PO (08:37)
[2023-09-03] MEDS: QUEtiapine Fumarate 50 MG TABLET PO (08:37)
[2023-09-03 08:38] VITALS: BP 115/69
[2023-09-03] MEDS: cloNIDine HCL 0.1 MG TABLET PO (08:38)
[2023-09-03] MEDS: methADONE HCl 20 MG/2 ML ORAL.CONC 190 MG PO (08:39)
--- NOTE | 2023-09-03 13:29 | PM.PSYDC ---
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 track coach Attending physician on discharge: Adolfo Price Discharging clinician: Jyoti Jon DS: Diagnosis Discharge Diagnosis (1) MDD (major depressive disorder), recurrent episode: Status: Inactive (2) PTSD (post-traumatic stress disorder): Status: Acute (3) Cocaine use disorder: Status: Acute (4) Opiate abuse, continuous: Status: Acute DS: Medications Discharge Medications Home Medications: Home Medications ?Medication ?Instructions ?Recorded ?Confirmed methadone 10 mg/mL oral 190 mg PO DAILY 08/09/23 08/29/23 concentrate (Methadose) quetiapine 300 mg tablet 300 mg PO BEDTIME 08/09/23 08/29/23 hydroxyzine HCl 25 mg tablet 25 mg PO BID PRN Anxiety 08/12/23 08/29/23 nicotine (polacrilex) 4 mg gum 4 mg PO QID PRN Nicotine Cravings 08/12/23 08/29/23 nicotine 21 mg/24 hr daily 1 patch topical DAILY 08/12/23 08/29/23 transdermal patch ibuprofen 600 mg tablet 600 mg PO BID PRN Pain 08/16/23 08/29/23 gabapentin 800 mg tablet 800 mg PO TID 08/30/23 08/30/23 Previous Rx's ?Medication ?Instructions ?Recorded omeprazole 20 mg capsule,delayed 20 mg PO DAILY@0630 #30 caps 08/18/23 release clonidine HCl 0.1 mg tablet 0.1 mg PO TID #0 tabs 09/02/23 ondansetron 8 mg disintegrating 8 mg translingual Q12H PRN Nausea 09/02/23 tablet And Vomiting #0 tabs Mental Status Exam Mental Status Exam Narrative: Pt is alert and oriented; behavior is irritable; dressed in hospital attire; mood is described as irritated ;eye contact appropriate; Speech is normal rate, volume and not pressured; thought process is organized; Thought content is on tx; denies SI/HI/VH/ Data Data Completed and Pending Completed studies during hospitalization [Text1]: 08/29/23 08/29/23 08/31/23 22:21 23:19 19:00 WBC 5.3 RBC 3.61 L Hgb 10.1 L Hct 32.1 L MCV 88.9 MCH 28.0 MCHC 31.5 RDW 15.7 Plt Count 331 MPV 8.9 L Immature Gran % (Auto) 0.0 Neut % (Auto) 46.1 Lymph % (Auto) 41.7 H [place] % (Auto) 7.4 Eos % (Auto) 4.4 H Baso % (Auto) 0.4 Lymph # (Auto) 2.2 [place] # (Auto) 0.4 Eos # (Auto) 0.2 Baso # (Auto) 0.0 Abs Immat Gran (auto) 0.00 Absolute Neuts (auto) 2.4 Absolute Nucleated RBC 0.000 Nucleated RBC % (auto) 0.0 Sodium 143 Potassium 3.4 Chloride 107 Carbon Dioxide 23 Anion Gap 16 BUN 13 Creatinine 0.76 Estim Creat Clear Calc 87.0 Estimated GFR > 60 Random Glucose 108 Calcium 9.6 D Magnesium 2.2 Total Bilirubin 0.2 Direct Bilirubin < 0.2 AST 29 ALT 21 Alkaline Phosphatase 74 Total Protein 7.7 Albumin 4.1 Urine Color Yellow Urine Appearance Clear Urine pH 5.5 Ur Specific [place] >= 1.030 H Urine Protein Negative Urine Glucose (UA) Negative Urine Ketones Trace Urine Blood Negative Urine Nitrite Negative Ur Leukocyte Esterase Negative Urine Test NEGATIVE Urine Opiates Screen POSITIVE H Ur Buprenorphine Scrn Not Detected Ur Oxycodone Screen Not Detected Urine Methadone Screen Positive H Urine Fentanyl Screen POSITIVE H Ur Barbiturates Screen Not Detected Ur Phencyclidine Scrn Not Detected Ur Amphetamines Screen Not Detected U Benzodiazepines Scrn Not Detected Urine Cocaine Screen POSITIVE H U Marijuana (THC) Screen Not Detected Ethyl Alcohol 67 Chlam trachomat DNA PCR NOT DETECTED N.gonorrhoeae DNA (PCR) NOT DETECTED T. vaginalis (PCR) NOT DETECTED Bact Vaginosis (PCR) NEGATIVE C. krusei/glabrata (PCR) DETECTED A Gayatri group (PCR) NOT DETECTED DS: Summary Hospital Course Hospital Course: Patient is a 38 year old female with hx of MDD, PTSD, cocaine use d/o, and opioid use d/o who self [place] [facility] [place] d/t suicidal ideation secondary to pain and discomfort. Per crisis report, pt self presented to ER with c/o MRSA symptoms and SI secondary to pain and discomfort. Pt had plan to overdose and reported substance induced psychosis. Pt reported paranoia of everyone is after her and seeing and hearing people plotting against her. Pt has numerous inpatient psychiatric and detox admissions. Pt has no known prior suicide attempts. Has not slept in the past seven days d/t substance use. UTOX positive for cocaine, fentanyl and opiates. During admission assessment, pt presents anxious but cooperative. Pt reports feeling anxious and depressed ; pt stated, I want help detoxing. Every time I get high on cocaine, I feel like someone is trying to kill me and even when I don't, I still feel like people are after me . Pt reports she has been using $100 of coke and $200 dope every day ; pt stated, I get the money for it however way I can. The longest I've been clean was 5 months when I was locked up . Pt reports she would like consult for head track coach and STD testing. Pt stated, I don't want to be tested for HIV because I don't want to know the results . Pt stated, I need to get back on my meds. I'm not suicidal. The paranoia is driving me nuts . Pt denies SI/HI/VH/AH. Discussed prior hx of medication trials; pt reports she has not been medication compliant in the past. Discussed continuing hx of home medications; risk/benefits reviewed; pt agreed to continue medications. During hospital course, Patient is a 38 year old female with hx of MDD, PTSD, cocaine use d/o, and opioid use d/o who self presented [place] [facility] [place] d/t suicidal ideation secondary to pain and discomfort. Plan: CV/ pt signed 3 day notice 15 minute safety checks Addiction medicine consult for head track coach discharge planning Start: clonidine 0.1mg PO TID Zofran 8mg Q12hr PRN Flexeril 5mg PO TID PRN Ibuprofen 600mg PO Q6hr PRN Imodium 4mg PO Q6hr PRN Continue: Gabapentin 800mg PO TID Seroquel 300mg PO bedtime Seroquel 50mg PO daily observed laying in bed. guarded. irritable. Pt stated, I feel like shit because I'm detoxing. I don't want to talk . Pt encouraged to utilize PRN medications. pt denies SI/HI/VH/AH. continue current tx plan. Observed sitting in mileu. keeping to self. Pt continues to report feeling depressed ; pt stated, I know that if I left here today that I would use again. I want to stay clean. I'm trying to think about my future. I'm going to try to start going to groups tomorrow . Pt reports not feeling well; pt stated, I feel like shit because I'm detoxing . Pt encouraged to utilize PRN medications. pt denies SI/HI/VH/AH. On 09/02/23, Per note from CHARO Murphy, CARE Team assisted Dr. Sharpe in completion of a [address] section 35 warrant will be issued. hops farmworker, Edwige, notified pt of Section 35 (please see social work note). Pt observed eating breakfast in her room; presents irritable. Pt stated, I can't believe the doctors in the Emergency room would Section me. I just want to stay here. I want a cigarette. I don't want to be Section 35'd . T/W discussed with patient that she would be discharged from the unit and into police custody with the hopes that she would be able to receive treatment for her substance abuse. Pt stated, I hope I win so I don't have to go . Pt denies SI/HI/VH/AH. Pt reports she doesn't need anything and just waiting for the hand bootmaker . Time spent discussing smoking cessation with patient: 3 to 10 minutes Status at Discharge Cognitive/behavioral status at discharge: Patient was interviewed prior to discharge and found to be fully oriented and without SI or HI. Patient has insight and demonstrates good judgment in terms of wanting to pursue treatment. Patient has a safety plan that includes presenting to the closest ER or calling 911 if feeling unsafe. Functional status at discharge: independent ambulation Overall status at discharge: patient is progressing back to baseline Time Spent with Patient Time attestation: Total time managing care of this patient today _20___ minutes. Time spent: Less than 30 minutes Discharge Plan Discharge Anticipated Discharge Date/Time: 09/03/23 10:00 Patient Disposition: Xfer Inpatient Rehab Fac Discharge Diagnosis: MDD, PTSD, Cocaine use d/o, opiate use d/o Referrals: Physician,Unknown J [Primary Care Provider] - 1 Week Discharge Medications: New clonidine HCl 0.1 mg Tablet 0.1 mg PO TID Qty: 0 0RF Protocol: Hold for SBP< HOLD for SBP < : 90 ondansetron 8 mg Tablet,Disintegrating 8 mg translingual Q12H PRN (Reason: Nausea And Vomiting) Qty: 0 0RF Continued nicotine (polacrilex) 4 mg gum 4 mg PO QID PRN (Reason: Nicotine Cravings) nicotine 21 mg/24 hr patch 24 hour 1 patch topical DAILY hydroxyzine HCl 25 mg tablet 25 mg PO BID PRN (Reason: Anxiety) ibuprofen 600 mg tablet 600 mg PO BID PRN (Reason: Pain) omeprazole 20 mg Capsule,Delayed Release(Dr/Ec) 20 mg PO DAILY@0630 Qty: 30 0RF gabapentin 800 mg tablet 800 mg PO TID quetiapine 300 mg tablet 300 mg PO BEDTIME methadone [Methadose] 10 mg/mL Concentrate 190 mg PO DAILY Patient Comments: Verfieid by clint from [facility] center for [facility]. Phone number [phone] Discharge Orders: Discharge Order (Routine); Ordered 09/03/23 Ordered By: Jyoti Jon Diet: Regular diet Activity on Discharge: As tolerated Stand Alone Forms: Patient Portal Discharge page, Community Support Print Language: [place] Care Plan Goals: Maintain mood and safe behaviors Take medications as prescribed Continue to pursue sobriety Practice coping skills Continue with outpatient providers and reach out to them as needed Health Concerns: Mood stability and behaviors Sobriety Plan of Treatment: Follow up with your PCP, psychiatric provider and other outpatient providers regarding above concerns Take medications as prescribed Assessment: Patient was interviewed prior to discharge and found to be fully oriented and without SI or HI. Patient has insight and demonstrates good judgment in terms of wanting to pursue treatment. Patient has a safety plan that includes presenting to the closest ER or calling 911 if feeling unsafe. Discharge Date/Time: 09/03/23 10:40
== END 2023-09-03 10:40 | DRG 751 ==
LOC: HO.ED 23:41 → HO.PADLT16 08-31 13:36
PROVIDERS: Physician Assistant; Admitting Provider Registered Nurse; Emergency Provider Emergency Medicine; Responsible Provider Registered Nurse; Visit Provider Psychiatry & Neurology Psychiatry
DX: F33.9 Major depressive disorder, recurrent, unspecified (principal); R45.851 Suicidal ideations; F14.10 Cocaine abuse, uncomplicated; F11.20 Opioid dependence, uncomplicated; F43.10 Post-traumatic stress disorder, unspecified; F17.210 Nicotine dependence, cigarettes, uncomplicated; Z71.6 Tobacco abuse counseling; Z59.02 Unsheltered homelessness; Z79.899 Other long term (current) drug therapy
CPT/HCPCS: 0352U; 0353U; 36415; 80048; 80076; 80307; 81003; 81025; 83735; 85025; 93005; 99285; S9485

== ENCOUNTER → 2023-08-31 10:10 | Outpatient (BNV) | payer MEDICAID, SELFPAY | PROVIDERS: Admitting Provider Registered Nurse; Emergency Provider Emergency Medicine; Responsible Provider Registered Nurse; Visit Provider Internal Medicine Cardiovascular Disease | DX: I45.81 Long QT syndrome (principal) | CPT/HCPCS: 93010 ==

== ENCOUNTER → 2023-08-31 13:01 | Outpatient (BNV) | payer OTHER, SELFPAY | PROVIDERS: Admitting Provider Registered Nurse; Emergency Provider Emergency Medicine; Responsible Provider Registered Nurse; Visit Provider Registered Nurse | DX: F33.3 Major depressive disorder, recurrent, severe with psychotic symptoms (principal); F14.10 Cocaine abuse, uncomplicated; F11.10 Opioid abuse, uncomplicated; F43.11 Post-traumatic stress disorder, acute | CPT/HCPCS: 99231; 99233 ==

== ENCOUNTER 2023-11-02 15:46 | Emergency (ER) | payer MEDICAID, SELFPAY ==
--- NOTE | ~2023-11-02 | XR_ITS ---
EXAMINATION: PORTABLE CHEST 1 VIEW CLINICAL INFORMATION: body pain. COMPARISON: 06/12/2023. TECHNIQUE: Portable frontal view of the chest was obtained. FINDINGS: The lungs are well expanded. No focal infiltrate, effusion, edema, or pneumothorax. Cardiac and mediastinal silhouettes are within normal limits for technique. No acute bony abnormality seen. XR/XR chest 1V IMPRESSION: No evidence of acute disease.
--- NOTE | ~2023-11-02 | XR_ITS ---
EXAMINATION: XR FOOT, RIGHT CLINICAL INFORMATION: Pain COMPARISON: None available. TECHNIQUE: AP, lateral, and oblique views of the right foot. FINDINGS: Bones are normal anatomic alignment with no acute fracture or dislocation seen. Degenerative changes at the first MTP joint with a mild hallux valgus deformity. XR/XR foot RT min 3V IMPRESSION: Degenerative changes at the first MTP joint. No acute fracture or dislocation.
[2023-11-02 16:00] VITALS: BP 117/86; BP 150/110; PULSE 108; PULSE 127; RESP 16; TEMP 36.4; O2SAT 80; O2SAT 97; BMI 27.4
[2023-11-02 16:11] VITALS: BP 117/86; PULSE 86; RESP 16; TEMP 37; O2SAT 97
--- NOTE | 2023-11-02 16:35 | PC.NURSE ---
Pt comes to ED via EMS today for report of being found outside an auto garage with suspected cocaine and meth use. Pt is agitated, then tearful at times. VSS, afebrile. Alert with confusion on specific date. C/o generalized pain to whole body d/t bugs crawling inside her. Reports heroin use recently with a used needle. C/o of only receiving one dose of her newly prescribed methadone and is concerned she has not gotten her psych meds.
--- NOTE | 2023-11-02 16:45 | ED.OVERDOSE ---
HPI - Overdose General Chief Complaint: Overdose Stated Complaint: AMS Time Seen by Provider: 11/02/23 16:44 Source: patient and EMS Mode of arrival: EMS Limitations: no limitations History of Present Illness HPI Narrative: 38-year-old female past medical history of untreated bipolar disorder PTSD anxiety depression opiate use disorder and drug use who presents moaning loudly and yelling intermittently complaining of total body pain. Denies any falls fever chills but states she is worried about a blood infection. Related Data Home Medications ?Medication ?Instructions ?Recorded ?Confirmed methadone 10 mg/mL oral 190 mg PO DAILY 08/09/23 08/29/23 concentrate (Methadose) quetiapine 300 mg tablet 300 mg PO BEDTIME 08/09/23 08/29/23 hydroxyzine HCl 25 mg tablet 25 mg PO BID PRN Anxiety 08/12/23 08/29/23 nicotine (polacrilex) 4 mg gum 4 mg PO QID PRN Nicotine Cravings 08/12/23 08/29/23 nicotine 21 mg/24 hr daily 1 patch topical DAILY 08/12/23 08/29/23 transdermal patch ibuprofen 600 mg tablet 600 mg PO BID PRN Pain 08/16/23 08/29/23 gabapentin 800 mg tablet 800 mg PO TID 08/30/23 08/30/23 Previous Rx's ?Medication ?Instructions ?Recorded omeprazole 20 mg capsule,delayed 20 mg PO DAILY@0630 #30 caps 08/18/23 release clonidine HCl 0.1 mg tablet 0.1 mg PO TID #0 tabs 09/02/23 ondansetron 8 mg disintegrating 8 mg translingual Q12H PRN Nausea 09/02/23 tablet And Vomiting #0 tabs Allergies Allergy/AdvReac Type Severity Reaction Status Date / Time No Known Allergies Allergy Verified 11/02/23 16:02 [No Known Allergies*] PMF Past Medical History Medical History (Updated 11/02/23 @ 19:51 by Dimitri Galvin DO) Polysubstance abuse Cocaine use disorder Opioid use disorder, moderate, dependence History of drug dependence/abuse Atypical bipolar disorder Opiate withdrawal Acute anxiety Drug-induced psychotic disorder Depression PTSD (post-traumatic stress disorder) Anxiety Depression Social History Social History Household Members: Other Household Members Other:: grandmother, uncle Housing: Homeless Do you presently have visiting nurse or other home services: No 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: current 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 frequency: a few times a month Alcohol type: beer, wine and hard liquor Comment: diane Patient Tobacco Use Status: Current everyday Tobacco user Tobacco use type: Cigarette Cigarette Packs Per Day: 1.5 Cigarettes Per Day: 30.0 Years Smoked: 26 Smoked in Last 30 Days: Yes e-Cigarette/Vaping Use: Never Used Second Hand Smoke Exposure: Yes Use of substances other than those prescribed or required for medical reasons: Yes Substance Use Type: Crack/Cocaine, Heroin and Methamphetamine Last Used Substance: Just Prior to Admission Any prior treatment program specific to substance use: Yes Advance Directives: No Advance Directives Information Provided: No Do you have a plan to hurt others: No Plan service: No Current occupational status: unemployed Sexual orientation: Don't Know Physical Exam Vital Signs: Vital Signs: Last Vital Signs Temp 98.6 F 11/02/23 16:11 Pulse 86 11/02/23 16:11 Resp 16 11/02/23 16:11 BP 117/86 11/02/23 16:11 Pulse Ox 97 11/02/23 16:11 O2 Del Method Room Air 11/02/23 16:11 BMI result Body Mass Index 27.4 Course Course Course Narrative: Patient did calm down treating the Haldol Tylenol and cyclobenzaprine. Patient had x-rays of the foot chest and labs done. Patient's labs are all unremarkable patient was making some passive SI statements stating she went to go the pad that she just want to kill herself I will clear the patient medically and put in the care team consult at this time. Medications Administered Discontinued Medications Generic Name Dose Route Start Last Admin Trade Name Radha PRN Reason Stop Dose Admin Acetaminophen 650 mg 11/02/23 17:10 11/02/23 17:32 Acetaminophen 325 Mg Tablet PO 11/02/23 17:11 650 mg ONCE ONE Administration Chlordiazepoxide HCl 100 mg 11/02/23 17:07 11/02/23 17:32 Chlordiazepoxide Hcl 25 Mg Capsule PO 11/02/23 17:08 100 mg ONCE ONE Administration Haloperidol Lactate 5 mg 11/02/23 17:07 11/02/23 17:32 Haloperidol Lactate 5 Mg/Ml Vial IM 11/02/23 17:08 5 mg ONCE ONE Administration Medical Decision Making Lab Data 11/02/23 18:13 11/02/23 18:13 Labs: Lab Results 11/02/23 Range/Units 18:13 WBC 8.9 (4.8-10.8) X10*3/uL RBC 3.95 L (4.20-5.50) X10*6/uL Hgb 10.7 L (12.0-16.0) g/dl Hct 33.1 L (37.0-47.0) % MCV 83.8 (80.0-98.0) fL MCH 27.1 (27.0-33.0) pg MCHC 32.3 (31.0-35.0) g/dl RDW 16.0 (11.0-16.0) % Plt Count 321 (160-400) X10*3/uL MPV 9.5 (9.4-12.3) fL Immature Gran % (Auto) 0.3 (0.0-0.4) % Neut % (Auto) 66.4 (45-73) % Lymph % (Auto) 25.4 (20-40) % Camas % (Auto) 6.8 (2-11) % Eos % (Auto) 0.6 (0-4) % Baso % (Auto) 0.5 (0-2) % Lymph # (Auto) 2.3 (1.2-4.9) X10*3/uL [place] # (Auto) 0.6 (0.1-1.2) X10*3/uL Eos # (Auto) 0.1 (0.0-0.4) X10*3/uL Baso # (Auto) 0.0 (0.0-0.2) X10*3/uL Abs Immat Gran (auto) 0.03 (0.00-0.03) X10*3/uL Absolute Neuts (auto) 5.9 (2.0-8.3) x10*3/uL Absolute Nucleated RBC 0.000 (0.0-0.012) X10*3/uL Nucleated RBC % (auto) 0.0 (0.0-0.2) /100WBC Sodium 134 L (135-145) mmol/L Potassium 3.6 (3.3-5.1) mmol/L Chloride 100 (96-108) mmol/L Carbon Dioxide 22 (22-29) mmol/L Anion Gap 16 (12-20) BUN 27 H (9-16) mg/dL Creatinine 0.96 (0.5-1.4) mg/dL Estim Creat Clear Calc 89.8 Estimated GFR > 60 Random Glucose 149 H (60-115) mg/dL Lactic Acid 1.7 (0.5-2.0) mmol/L Calcium 10.7 H D (8.4-10.2) mg/dL Total Bilirubin 0.5 (0.0-1.0) mg/dL Direct Bilirubin 0.2 (0.0-0.5) mg/dL AST 113 H (5-31) U/L ALT 99 H (0-31) U/L Alkaline Phosphatase 72 (39-117) U/L Total Protein 9.3 H (6.5-8.0) g/dL Albumin 5.1 H (3.5-5.0) g/dL Lipase 12 (8-78) U/L Discharge Plan Discharge Clinical Impression: Drug abuse, Opiate abuse, continuous, Acute foot pain, Passive suicidal ideations Patient Disposition: Still a Patient Prescriptions: No Action nicotine (polacrilex) 4 mg gum 4 mg PO QID PRN (Reason: Nicotine Cravings) nicotine 21 mg/24 hr patch 24 hour 1 patch topical DAILY hydroxyzine HCl 25 mg tablet 25 mg PO BID PRN (Reason: Anxiety) ibuprofen 600 mg tablet 600 mg PO BID PRN (Reason: Pain) omeprazole 20 mg Capsule,Delayed Release(Dr/Ec) 20 mg PO DAILY@0630 Qty: 30 0RF gabapentin 800 mg tablet 800 mg PO TID clonidine HCl 0.1 mg Tablet 0.1 mg PO TID Qty: 0 0RF Protocol: Hold for SBP< HOLD for SBP < : 90 ondansetron 8 mg Tablet,Disintegrating 8 mg translingual Q12H PRN (Reason: Nausea And Vomiting) Qty: 0 0RF quetiapine 300 mg tablet 300 mg PO BEDTIME methadone [Methadose] 10 mg/mL Concentrate 190 mg PO DAILY Patient Comments: Verfieid by clint from [facility] for [facility]. Phone number [phone] Print Language: Japanese
[2023-11-02] MEDS: Acetaminophen 325 MG TABLET 650 MG PO (17:32)
[2023-11-02] MEDS: chlordiazePOXIDE HCl 25 MG CAPSULE 100 MG PO (17:32)
[2023-11-02] MEDS: Haloperidol Lactate 5 MG/ML VIAL IM (17:32)
[2023-11-02 18:20] LABS: MANUAL DIFF FLAG NO
[2023-11-02 18:23] LABS: Basophils Percent Auto 0.5 % (0-2); Eosinophils Absolute Auto 0.1 X10*3/uL (0.0-0.4); Eosinophils Percent Auto 0.6 % (0-4); Hematocrit 33.1 % (37.0-47.0); Hemoglobin 10.7 g/dl (12.0-16.0); Imm Gran Abs Auto 0.03 X10*3/uL (0.00-0.03); Imm Gran Pct Auto 0.3 % (0.0-0.4); Lymphocytes Absolute Auto 2.3 X10*3/uL (1.2-4.9); Lymphocytes Percent Auto 25.4 % (20-40); Mean Corpuscular HGB Conc 32.3 g/dl (31.0-35.0); Mean Corpuscular Hemoglobin 27.1 pg (27.0-33.0); Mean Corpuscular Volume 83.8 fL (80.0-98.0); Mean Platelet Volume 9.5 fL (9.4-12.3); Monocytes Absolute Auto 0.6 X10*3/uL (0.1-1.2); Monocytes Percent Auto 6.8 % (2-11); Neutrophils Absolute Auto 5.9 x10*3/uL (2.0-8.3); Neutrophils Percent Auto 66.4 % (45-73); Platelet Count 321 X10*3/uL (160-400); Red Blood Count 3.95 X10*6/uL (4.20-5.50); White Blood Count 8.9 X10*3/uL (4.8-10.8)
[2023-11-02 18:40] LABS: Lactic Acid 1.7 mmol/L (0.5-2.0)
[2023-11-02 18:47] LABS: Alanine Aminotransferase 99 U/L (0-31); Albumin Level 5.1 g/dL (3.5-5.0); Alkaline Phosphatase 72 U/L (39-117); Anion Gap 16 (12-20); Aspartate Amino Transferase 113 U/L (5-31); Bilirubin Direct 0.2 mg/dL (0.0-0.5); Bilirubin Total 0.5 mg/dL (0.0-1.0); Blood Urea Nitrogen 27 mg/dL (9-16); Calcium 10.7 mg/dL (8.4-10.2); Carbon Dioxide 22 mmol/L (22-29); Chloride 100 mmol/L (96-108); Creatinine Clr Calc Pharmacy 89.8; Estimated Glomerular Filt Rate > 60; Glucose Random 149 mg/dL (60-115); Lipase 12 U/L (8-78); Potassium 3.6 mmol/L (3.3-5.1); Sodium 134 mmol/L (135-145); Total Protein 9.3 g/dL (6.5-8.0)
[2023-11-02 20:00] VITALS: RESP 16
[2023-11-02 20:38] LABS: Ethanol < 10 mg/dL
[2023-11-02 23:41] VITALS: RESP 12
[2023-11-02 23:51] VITALS: RESP 18
--- NOTE | 2023-11-02 23:51 | MHC.EDTECH ---
Pt woke up and T/w asked if we could do vitals and Pt refused. RN aware.
--- NOTE | 2023-11-02 23:59 | PC.NURSE ---
urine cup given educated on the need for urine sample. Pt requests gingerale and crackers
[2023-11-03 00:16] LABS: Appearance Urine Hazy; Color Urine Dark Yellow; Glucose Urine UA Negative (Negative); Leukocyte Esterase Urine Trace (Negative); Nitrite Urine Negative (Negative); PH 5.5 (5.0-9.0); Specific Gravity - Urine >= 1.030 (1.005-1.025); UMIC TRIGGER UACC YES; Urine Blood Negative (Negative); Urine Ketones Negative (Negative); Urine Protein 30 (1+) mg/dL (Neg-Trace)
[2023-11-03 00:24] LABS: Bacteria Urine 1+ (None Seen); Hyaline Casts Urine >20 /LPF (0-2); RBC Urine 0-2 /HPF (0-2); UACC Culture Trigger YES
[2023-11-03 00:29] LABS: Amphetamine Screen Urine Not Detected (Not Detect); Barbiturates, Urine Not Detected (Not Detect); Benzodiazepines Screen Urine POSITIVE (Not Detect); Buprenorphine Scr Not Detected (Not Detect); Cannabinoid Screen Urine Not Detected (Not Detect); Cocaine Screen Urine POSITIVE (Not Detect); Fentanyl, urine POSITIVE (Not Detect); Methadone Screen, Urine Positive (Not Detect); Opiate Screen Urine POSITIVE (Not Detect); Oxycodone Screen Urine Not Detected (Not Detect); Phencyclidine Screen Urine Not Detected (Not Detect)
[2023-11-03 03:18] VITALS: RESP 12
[2023-11-03 04:50] VITALS: BP 107/73; PULSE 87; RESP 17; TEMP 36.5; O2SAT 98
--- NOTE | 2023-11-03 04:51 | PC.NURSE ---
patient belongings in !!!!!!!
[2023-11-03] MEDS: LORazepam 1 MG TABLET 2 MG PO (05:15)
--- NOTE | 2023-11-03 06:57 | HE.PHANOTE ---
RE: methadone Received verification form from [facility] Hoffmann 190mg daily last dose 10/31/23 @3484
--- NOTE | 2023-11-03 07:08 | PC.NURSE ---
Assumed care of patient at 0645. Patient is observed resting quietly in their bed. No distress observed, breathing is even and unlabored.
[2023-11-03] MEDS: methADONE HCl 20 MG/2 ML ORAL.CONC 190 MG PO (08:26)
[2023-11-03] MEDS: Acetaminophen 325 MG TABLET 650 MG PO (11:25)
--- NOTE | 2023-11-03 11:57 | MHC.RECOVRN ---
Briefly met with pt in the behavioral pod after cleared by CARE Team and pt expressing interest in ATS. Upon immediate contact, pt states I want to section myself. Discussed voluntary ATS level of care, pt adamant regarding presenting to [facility] with a goal of Sect 35. Pt difficult to engage in conversation regarding substance use, reports feeling not right and requesting morning medications. Pt able to report she has been using heroin/fentanyl, $300 daily, as well as cocaine, $700 daily, x 1 week. Pt is also currently receiving methadone, 190 mg daily through [facility]. Pt requesting daily medications and then discharge to present to the [facility]. Denies other questions or concerns for t/w. RN and provider aware.
[2023-11-03] MEDS: OLANZapine 5 MG TABLET PO (13:10)
[2023-11-03] MEDS: hydrOXYzine HCL 50 MG TABLET PO (13:10)
[2023-11-03] MEDS: Gabapentin 600 MG TABLET 800 MG PO (13:10)
[2023-11-03 13:22] VITALS: BP 107/73; PULSE 87
[2023-11-03] MEDS: Propranolol HCL 10 MG TABLET PO (13:22)
[2023-11-03 13:27] VITALS: BP 107/73; PULSE 87; RESP 17; TEMP 36.5; O2SAT 98
== END 2023-11-03 13:28 | disposition home or self-care (01) ==
PROVIDERS: Emergency Provider Student in an Organized Health Care Education/Training Program
DX: T40.1X1A Poisoning by heroin, accidental (unintentional), initial encounter (principal); F41.9 Anxiety disorder, unspecified; F33.1 Major depressive disorder, recurrent, moderate; F17.210 Nicotine dependence, cigarettes, uncomplicated; F11.10 Opioid abuse, uncomplicated; F14.10 Cocaine abuse, uncomplicated; R45.851 Suicidal ideations; M79.672 Pain in left foot; M79.10 Myalgia, unspecified site; M79.671 Pain in right foot; Z71.51 Drug abuse counseling and surveillance of drug abuser; Z79.899 Other long term (current) drug therapy
CPT/HCPCS: 36415; 71045; 73630; 80048; 80076; 80307; 81001; 83605; 83690; 85025; 87040; 87077; 87086; 87186; 87205; 96372; 99285; J1630; S9485

== ENCOUNTER 2023-11-07 11:45 | Inpatient (IN) | payer MEDICAID, SELFPAY ==
--- NOTE | 2023-11-07 | ECG_ITS ---
Test Reason : arrythmia Blood Pressure : / mmHG Vent. Rate : 078 BPM Atrial Rate : 078 BPM P-R Int : 124 ms QRS Dur : 090 ms QT Int : 564 ms P-R-T Axes : 054 -32 -06 degrees QTc Int : 642 ms Normal sinus rhythm with Premature ventricular complexes with junctional escape complexes Left axis deviation Nonspecific T wave abnormality Prolonged QT Abnormal ECG When compared with ECG of 31-AUG-2023 10:10, Premature ventricular complexes are now Present QT has lengthened Referred By: Deirdre Hernández Electronically Signed By:LEON FERNANDES MD
--- NOTE | ~2023-11-07 | CT_ITS ---
EXAMINATION: CT HEAD WITHOUT CONTRAST CT ANGIOGRAM HEAD CT ANGIOGRAM NECK CLINICAL INFORMATION: Reason for Exam AMS, seizure COMPARISON: None. TECHNIQUE: Initial noncontrast banking specialist imaging of the head and neck was performed. Noncontrast head CT was also performed. Test bolus sequences followed by intravenous administration 70 mL of Omnipaque 350. Helical imaging was performed in the axial plane from the aortic arch to the skull vertex. Delayed postcontrast imaging of the head was also performed. The data was processed at the cardiovascular technologist's workstation for generation of MIP sequences. Angled MIPs and volume rendered reformatted images were also generated at an offline 3D workstation. Stenoses are assessed in accordance with Florence et al. Quantification of Carotid Stenosis on CT Angiography. AJR 2006. 27(1):13-19. [address] CT examination was performed using dose optimization techniques as appropriate, variously including the following: *Automated exposure control *Adjustment of mA and/or kV according to patient size (this includes techniques or standardized protocols for targeted exams where dose is matched to indication/reason for exam; i.e. extremities or head) *Use of iterative reconstruction technique DLP: 05/01/2005 mGy-cm FINDINGS: CT HEAD: There is no evidence of acute intracranial hemorrhage. No mass-effect or ventricular shift is noted. No acute, territorial loss of ortiz-white differentiation. The ventricles and sulci are appropriate in size and configuration for the patient's stated age. No abnormal intracranial enhancement is visualized. No depressed calvarial fracture. The mastoid air cells and the visualized paranasal sinuses are well-aerated. CTA HEAD: Anterior circulation: Right internal carotid artery: No hemodynamically significant stenosis. Right middle cerebral artery: No hemodynamically significant stenosis. Right anterior cerebral artery: No hemodynamically significant stenosis. Left internal carotid artery: No hemodynamically significant stenosis. Left middle cerebral artery: No hemodynamically significant stenosis. Left anterior cerebral artery: No hemodynamically significant stenosis. Posterior circulation: Right vertebral artery: No hemodynamically significant stenosis. Left vertebral artery: No hemodynamically significant stenosis. Basilar artery: No hemodynamically significant stenosis. Right posterior cerebral artery: No hemodynamically significant stenosis. Left posterior cerebral artery: No hemodynamically significant stenosis. No high flow vascular malformation or significant aneurysmal dilatation is visualized. The major dural venous sinuses are grossly within normal limits given arterial technique. CTA NECK: Aortic arch: Common origin of the left common carotid artery and right brachiocephalic trunk. Right common carotid artery: No hemodynamically significant stenosis. Right proximal internal carotid artery: No hemodynamically significant stenosis. Right mid/distal internal carotid artery: No hemodynamically significant stenosis. Left common carotid artery: No hemodynamically significant stenosis. Left proximal internal carotid artery: No hemodynamically significant stenosis. Left mid/distal internal carotid artery: No hemodynamically significant stenosis. Right vertebral artery: No hemodynamically significant stenosis. Left vertebral artery: The V1 segment is obscured by adjacent dense venous contrast. Otherwise patent. CT NECK: Respiratory motion degrades evaluation of the lung apices and pulmonary artery. CT/CT angio head neck IMPRESSION: CT HEAD: No acute intracranial hemorrhage or territorial loss of ortiz-white differentiation. CTA NECK: No hemodynamically significant stenosis. CTA HEAD: No proximal vessel occlusion or high-grade stenosis.
--- NOTE | 2023-11-07 11:48 | ED_ITS ---
HPI - General Adult General Chief complaint: Abdominal Pain Stated complaint: FEELING UNWELL/ABD PAIN, DRUG USE PER EMS Time Seen by Provider: 11/07/23 11:48 Source: patient and EMS Mode of arrival: EMS Limitations: no limitations History of Present Illness ED Provider: Bela Parsons PA-C HPI narrative: Patient is a 38 year old assigned female at with a history of bipolar disorder and IV drug use presenting to the emergency department today feeling generally unwell. Patient states that she has been using lately and feels generally unwell. Patient denies any dizziness, lightheadedness, abdominal pain, nausea, vomiting, fever, chills, blurry vision, double vision, loss of vision, chest pain, difficulty breathing, shortness of breath, back pain, night sweats, pain with urination, increased urinary frequency, increased urinary urgency, blood in her urine or stool, syncope or a near syncopal episode, recent trauma or falls, bowel incontinence, bladder incontinence, or any other complaints at this time. Relieving factors: none Exacerbating factors: none Associated symptoms: denies other symptoms Treatments prior to arrival: none Related Data Home Medications ?Medication ?Instructions ?Recorded ?Confirmed methadone 10 mg/mL oral 190 mg PO DAILY 08/09/23 11/07/23 concentrate (Methadose) nicotine (polacrilex) 4 mg gum 4 mg PO QID PRN Nicotine Cravings 08/12/23 11/03/23 gabapentin 800 mg tablet 800 mg PO TID 11/03/23 11/03/23 hydroxyzine HCl 50 mg tablet 50 mg PO BID 11/03/23 11/03/23 olanzapine 5 mg tablet (Zyprexa) 5 mg PO BID 11/03/23 11/03/23 propranolol 10 mg tablet 10 mg PO BID 11/03/23 11/03/23 quetiapine 200 mg tablet (Seroquel) 200 mg PO BEDTIME 11/03/23 11/03/23 Allergies Allergy/AdvReac Type Severity Reaction Status Date / Time No Known Allergies Allergy Verified 11/07/23 12:03 [No Known Allergies*] Review of Systems 2 Constitutional: Constitutional: Reports no additional constitutional complaints, Denies chills, Denies fever(s) and Denies night sweats Eyes: Eyes: Reports no additional eye complaints, Denies blurry vision, Denies change in vision, Denies diplopia, Denies eye discharge, Denies loss of vision and Denies eye pain ENT: Denies dizziness Cardiovascular: Cardiovascular: Reports no additional cardiovascular complaints, Denies chest pain, Denies lightheadedness, Denies Loss of Consciousness and Denies dyspnea Respiratory: Respiratory: Reports no additional respiratory complaints and Denies dyspnea Gastrointestinal: Gastrointestinal: Reports no additional gastrointestinal complaints, Denies abdominal pain, Denies melena, Denies hematochezia, Denies change in bowel habits and Denies change in stool character Genitourinary: Genitourinary: Denies hematuria, Denies urinary frequency, Denies dysuria, Denies urinary incontinence, Denies urinary hesitancy and Denies urinary urgency Musculoskeletal: Musculoskeletal: Reports no additional musculoskeletal complaints, Denies numbness and Denies tingling Neurologic: Denies dizziness, Denies loss of vision, Denies numbness and Denies tingling Psychiatric: Psychiatric: Reports no additional psychiatric complaints Endocrine: Endocrine: Reports no additional endocrine complaints Hematologic/Lymphatic: Hematologic/Lymphatic: Reports no additional hematologic/lymphatic complaints Allergic/Immunologic: Allergic/Immunologic: Reports no additional allergic/immunologic complaints [facility] Past Medical History Attestation statement: The following information was validated with the patient. 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 Patient Tobacco Use Status: Current everyday Tobacco user Tobacco use type: Cigarette Cigarette Packs Per Day: 1.5 Cigarettes Per Day: 30.0 Years Smoked: 26 Smoked in Last 30 Days: No e-Cigarette/Vaping Use: Never Used Second Hand Smoke Exposure: Yes Use of substances other than those prescribed or required for medical reasons: Yes Substance Use Type: Heroin Advance Directives: No Advance Directives Information Provided: No service: No Current occupational status: unemployed Sexual orientation: Don't Know Physical Exam ED Vital Signs: Vital Signs - 24 hr 11/07/23 12:00 Temperature 97.4 F Pulse Rate 50 Respiratory Rate 18 Blood Pressure 119/80 Pulse Oximetry 100 Oxygen Delivery Method Room Air BMI result Body Mass Index 24.3 Const General: cooperative, no acute distress, alert and awake Nutritional Appearance: well nourished Orientation/consciousness: patient oriented x3 Limitations: no limitations HENMT Head: Yes normal to inspection and Yes atraumatic Ears: hearing grossly normal bilaterally and external ears normal General nose exam: Normal external nose present, no nasal discharge noted and no epistaxis Face and sinus: Yes normal facial exam, No abrasion and No laceration Mouth: Normal oral and palatal mucosa present, no drooling and no muffled voice Eyes General: appearance normal, both eyes and all related structures Periorbital: periorbital findings normal Eyelids: Yes eyelids normal Conjunctivae: conjunctivae normal Pupils: Equal, round and reactive pupils present EOM: EOMs intact bilaterally Neck Neck: Yes normal visual inspection, Yes full ROM and Yes no lymphadenopathy Chest Chest palpation & inspection: normal inspection of the chest Resp Effort & Inspection: normal respiratory effort and able to speak in complete sentences GI Inspection: Yes normal to inspection Palpation (GI): Soft to palpation, not firm, nontender and no guarding Neuro General: patient oriented x3 and moves all extremities Cranial nerves: Yes Equal, round and reactive pupils present Cognition (Neuro): normal cognition Extrem General: Yes normal to inspection, Yes full ROM and Yes capillary refill normal Psych Appearance: grossly normal Mental Status: mental status grossly normal Affect: normal affect Attitude: cooperative Thought process: Normal thought process present Thought content: Normal thought content present Insight: Good insight present (Psych) Course Reevaluation(s) Reevaluation #1: Patient had a brief tonic-clonic seizure. IM Versed given. Patient was AOx3 after seizing stopped. Will load with Keppra and obtain head CT. Time: 12:09 Medications Administered Generic Name Dose Route Start Last Admin Trade Name Freq PRN Reason Stop Dose Admin Enoxaparin Sodium 40 mg 11/07/23 13:00 11/07/23 14:03 Enoxaparin Sodium 40 Mg/0.4 Ml Syringe SUBCUT Not Given Q24H JAIR Gabapentin 600 mg 11/07/23 15:00 11/07/23 15:17 Gabapentin 600 Mg Tablet PO 600 mg TID JAIR Administration Sodium Chloride 1,000 mls @ 75 mls/hr 11/07/23 13:00 11/07/23 14:16 Ns IVCONT 75 mls/hr .[id number] JAIR Administration Methadone HCl 40 mg 11/07/23 15:00 11/07/23 15:17 Methadone Hcl 20 Mg/2 Ml Oral.Conc PO 40 mg DAILY JAIR Administration Sodium Chloride 3 ml 11/07/23 16:00 11/07/23 15:22 0.9 % Sodium Chloride Flush 3 Ml Syringe IVFLUSH Not Given QSHIFT JAIR Discontinued Medications Generic Name Dose Route Start Last Admin Trade Name Freq PRN Reason Stop Dose Admin Diphenhydramine HCl 25 mg 11/07/23 14:47 11/07/23 14:51 Diphenhydramine Hcl 50 Mg/Ml Vial IVPUSH 11/07/23 14:48 25 mg ONCE ONE Administration Vancomycin HCl 1,000 mg/ 270 mls @ 270 mls/hr 11/07/23 11:53 11/07/23 13:50 Sodium Chloride IV 11/07/23 12:52 Not Given ONCE ONE Cefepime HCl 1 gm/ Sodium 50 mls @ 100 mls/hr 11/07/23 11:53 11/07/23 14:31 Chloride IV 11/07/23 12:22 Infused ONCE ONE Infusion Levetiracetam 1,000 mg in 100 mls @ 400 mls/hr 11/07/23 12:09 11/07/23 13:24 Keppra IV 11/07/23 12:23 Infused ONCE ONE Infusion Vancomycin HCl 1,500 mg/ 500 mls @ 333.333 mls/hr 11/07/23 12:15 11/07/23 15:19 Sodium Chloride IV 11/07/23 13:44 Infused ONCE ONE Infusion Iohexol 70 ml 11/07/23 15:41 11/07/23 15:41 Iohexol 350 Mg/Ml 100 Ml Infus..Btl IV 11/07/23 15:42 70 ml ONCE ONE Administration Midazolam HCl 2 mg 11/07/23 12:09 11/07/23 12:07 Midazolam Hcl/Pf 2 Mg/2 Ml Vial IM 11/07/23 12:10 2 mg ONCE ONE Administration Medical Decision Making Medical Decision Making MDM Narrative: Patient is a 38 year old assigned female at with a history of bipolar disorder and IV drug use presenting to the emergency department today feeling generally unwell. Patient's physical exam was unremarkable. Patient's blood work was unremarkable however, the patient's blood culture from 11/02/2023 grew MRSA. While awaiting work up, patient had a brief seizure as noted in the course of this note. Patient was given IM Versed and quickly recovered. Patient's CTA head and neck is pending. I explained my physical exam findings as well as all test results to the patient. I answered all questions asked by the patient. I spoke to the hospitalist team who agreed to admission. Patient's clinical presentation is not consistent with sepsis (@1153). Patient verbalized agreement and understanding with this treatment plan and admission. Differential Diagnosis Differential Diagnoses: The differential diagnosis associated with the presentation includes MRSA Polysubstance abuse Admission/Observation Consideration of admission/observation: Escalation of care including admission/observation considered Patient admitted. Consult Healthcare Provider Management of the patient was discussed with: Hospitalist (as noted in the MDM Rationale portion of this note.) Lab Data [facility] Lab Attestation statement: I reviewed the patient's lab results. My interpretation of these results are in the MDM Rationale portion of this note. 11/07/23 13:28 11/07/23 14:17 Independent Historian Clinical information obtained from an independent historian. History obtained from or confirmed by: EMS (EMS provided additional history and confirmed the history provided by the patient.) Critical Care Time Critical Care Time Critical Care Time: Yes Total Critical Care Time: 48 Attestation: I spent 48 minutes of Critical Care Time with this patient. This does not include time spent on separately reported billable procedures. Discharge Plan Discharge Clinical Impression: Positive blood culture, MRSA (methicillin resistant staph aureus) culture positive, Substance abuse, Seizure Patient Disposition: Admitted As Inpatient
[2023-11-07 11:51] VITALS: BP 148/86; PULSE 42; O2SAT 99
[2023-11-07 12:00] VITALS: BP 119/80; PULSE 50; RESP 18; TEMP 36.3; O2SAT 100; BMI 24.3
[2023-11-07] MEDS: Midazolam HCl/PF 2 MG/2 ML VIAL IM (12:07)
[2023-11-07] MEDS: levETIRAcetam in NaCl (iso-os) 1,000 MG/100 ML PIGGYBACK 400 MG IV (12:14)
--- NOTE | 2023-11-07 12:18 | PC.NURSE ---
Brought in by ems for complaints of nausea and abdominal pain. Upon arrival patient alert but slow to respond. Changed into hospital attire and vss, sinus jeramie on monitor. While obtaining vitals HR up 20 220 patient with seizure activity x 1 minute. Versed given per mar. Provider aware of seizure activity. ashley g97% s/p seizure, vss.
--- NOTE | 2023-11-07 12:42 | PC.NURSE ---
2 (22g IV`s placed) multiple attempts my multiple techs to obtain blood work unsuccessful at this time. provider aware
[2023-11-07 12:48] VITALS: BP 144/91; PULSE 63; RESP 16; TEMP 36.3; O2SAT 100
--- NOTE | 2023-11-07 12:52 | PM.IMHP ---
History of Present Illness Date of Service: 11/07/23 Chief Complaint: Bacteremia, Seizure A 38 years old lady with PMH of Bipolar disease, IVDU who presents to ED with feeling unwell with a positive blood culture from 11/01 growing MRSA. The patient reports feeling unwell recently. At time of interveiw she had a wittnessed seizure while in ED and given Midazolam she was not able to participate much as she was sedated and sleepy. CT head pending. repeat blood labs showiung mild hyponatremia. UTox positive for Opiates, Fentanyl , Benzo and Cocaine. In ED she was started on Vancomycin and Cefepime. Admitted for further evaluation and treatment. Review of Systems Review of Systems: Constitutional : sedated, not in distress Cardiovascular : no JVP, no lower extremity edema Respiratory : bilateral chest movement, not in resp distress Gastrointestinal: soft, lax, Non tender Skin : Warm, Dry, multiple skin scratch nieves and lesions, no erythema though Neurological : sound sleeping , No focal deficit [facility] Medical History Polysubstance abuse Cocaine use disorder Opioid use disorder, moderate, dependence History of drug dependence/abuse Atypical bipolar disorder Opiate withdrawal Acute anxiety Drug-induced psychotic disorder Depression PTSD (post-traumatic stress disorder) Anxiety Depression Social History Household Members: Other Household Members Other:: grandmother, uncle Housing: Homeless Do you presently have visiting nurse or other home services: No 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: current 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 frequency: a few times a month Alcohol type: beer, wine and hard liquor 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 Patient Tobacco Use Status: Current everyday Tobacco user Tobacco use type: Cigarette Cigarette Packs Per Day: 1.5 Cigarettes Per Day: 30.0 Years Smoked: 26 e-Cigarette/Vaping Use: Never Used Second Hand Smoke Exposure: Yes Substance Use Type: Crack/Cocaine, Heroin and Methamphetamine Advance Directives: No Advance Directives Information Provided: No service: No Current occupational status: unemployed Sexual orientation: Don't Know Meds Allergies Allergy/AdvReac Type Severity Reaction Status Date / Time No Known Allergies Allergy Verified 11/07/23 12:03 [No Known Allergies*] Active Medications: Current Medications Vancomycin HCl 1,500 mg/ (Sodium Chloride) 500 mls @ 333.333 mls/hr IV ONCE ONE Stop: 11/07/23 13:44 Home Medications ?Medication ?Instructions ?Recorded ?Confirmed ?Last Taken ?Type methadone 10 mg/mL oral 190 mg PO DAILY 08/09/23 11/03/23 10/31/23 09:00 History concentrate (Methadose) nicotine (polacrilex) 4 mg gum 4 mg PO QID PRN Nicotine Cravings 08/12/23 11/03/23 Unknown History gabapentin 800 mg tablet 800 mg PO TID 11/03/23 11/03/23 Unknown History hydroxyzine HCl 50 mg tablet 50 mg PO BID 11/03/23 11/03/23 Unknown History olanzapine 5 mg tablet (Zyprexa) 5 mg PO BID 11/03/23 11/03/23 Unknown History propranolol 10 mg tablet 10 mg PO BID 11/03/23 11/03/23 Unknown History quetiapine 200 mg tablet (Seroquel) 200 mg PO BEDTIME 11/03/23 11/03/23 Unknown History Physical Exam Vital Signs and Narrative: Vital Signs: Last Vital Signs Temp 97.4 F 11/07/23 12:48 Pulse 63 11/07/23 12:48 Resp 16 11/07/23 12:48 BP 144/91 H 11/07/23 12:48 Pulse Ox 100 11/07/23 12:48 O2 Del Method Room Air 11/07/23 12:48 BMI result Body Mass Index 24.3 Assessment and Plan (1) Substance abuse: Status: Acute (2) MRSA (methicillin resistant staph aureus) culture positive: Status: Acute (3) Seizure: Status: Acute (4) Opiate abuse, continuous: Status: Acute (5) Cocaine use disorder: Status: Acute (6) PTSD (post-traumatic stress disorder): Status: Acute Plan A 38 years old lady with PMH of Bipolar disease, IVDU who presents to ED with feeling unwell with a positive blood culture from 11/01 growing MRSA. MRSA Bacteremia likely 2/2 skin infection and IVDU repeat blood cultures STart Vancomycin ID consult follow trough NEw onset seizure Witness in ED, likely related to drugs withdrawal Pending head CT Electrolytes within normal Loaded with Keppra, Continue Continue Gabapentin Lorazepam PRN for breakthrough seziures NEurology consult Precautions Bipolar disease Continue Zyprexa, Atarax and Seroquel DVT PPx Lovenox The patient will need 2 overnight for treatment of bacteremia pending negative repeat culture and specialist opinion. Quality Stroke Does the patient have a stroke diagnosis?: No VTE Prior VTE?: No VTE Risk Level:: Medical - moderate - high VTE Device Contraindication: Treatment Not Indicated VTE Drug Contraindication: N/A - Med Ordered
--- NOTE | 2023-11-07 13:35 | PC.NURSE ---
20g ultrasound guided IV placed, provider aware that 2nd set of cultures unable to be obtained, stating to start abt
[2023-11-07 13:36] LABS: MANUAL DIFF FLAG NO
[2023-11-07] MEDS: cefEPime HCl 1 GM in 0.9 % Sodium Chloride 50 ML IV (13:36)
[2023-11-07 13:37] LABS: Basophils Percent Auto 0.1 % (0-2); Eosinophils Percent Auto 0.1 % (0-4); Hematocrit 29.8 % (37.0-47.0); Hemoglobin 9.4 g/dl (12.0-16.0); Imm Gran Abs Auto 0.03 X10*3/uL (0.00-0.03); Imm Gran Pct Auto 0.4 % (0.0-0.4); Lymphocytes Absolute Auto 0.7 X10*3/uL (1.2-4.9); Lymphocytes Percent Auto 8.8 % (20-40); Mean Corpuscular HGB Conc 31.5 g/dl (31.0-35.0); Mean Corpuscular Hemoglobin 26.9 pg (27.0-33.0); Mean Corpuscular Volume 85.1 fL (80.0-98.0); Mean Platelet Volume 9.4 fL (9.4-12.3); Monocytes Absolute Auto 0.3 X10*3/uL (0.1-1.2); Monocytes Percent Auto 3.4 % (2-11); Neutrophils Absolute Auto 6.4 x10*3/uL (2.0-8.3); Neutrophils Percent Auto 87.2 % (45-73); Platelet Count 304 X10*3/uL (160-400); Red Cell Distribution Width 16.7 % (11.0-16.0); White Blood Count 7.4 X10*3/uL (4.8-10.8)
[2023-11-07] MEDS: vancomycin HCL 1,500 MG in 0.9 % Sodium Chloride 500 ML 333.33 MG IV (13:38)
[2023-11-07 13:48] LABS: Lactic Acid 1.2 mmol/L (0.5-2.0)
[2023-11-07 13:52] LABS: Alanine Aminotransferase 40 U/L (0-31); Alkaline Phosphatase 67 U/L (39-117); Anion Gap 14 (12-20); Aspartate Amino Transferase 36 U/L (5-31); Bilirubin Total 0.3 mg/dL (0.0-1.0); Blood Urea Nitrogen 14 mg/dL (9-16); Calcium 8.9 mg/dL (8.4-10.2); Carbon Dioxide 24 mmol/L (22-29); Chloride 105 mmol/L (96-108); Creatinine Clr Calc Pharmacy 103.9; Estimated Glomerular Filt Rate > 60; Glucose Random 139 mg/dL (60-115); Magnesium 1.9 mg/dL (1.6-2.6); Potassium 3.6 mmol/L (3.3-5.1); Sodium 139 mmol/L (135-145); Total Protein 7.5 g/dL (6.5-8.0)
[2023-11-07] MEDS: 0.9 % Sodium Chloride 1,000 ML 75 ML IVCONT (14:16)
--- NOTE | 2023-11-07 14:24 | PHA.PROG ---
Admission Date/Time: November 07, 2023 12:46 Indication: bacteremia Weight in k.2 kg Adjusted body weight in Kg: [place] body weight in Kg: Obesity Dosing Indication % IBW: Serum Creatinine - Last 168 Hours 11/07/23 13:28 Creatinine 0.64 Estimated CrCl and GFR - Last 168 Hours 11/07/23 13:28 Estim Creat Clear Calc 103.9 Estimated GFR > 60 Vancomycin Loading Dose: 1500mg Current Vancomycin Dosing Regimen: 1250mg Q12H Vancomycin Monitoring using AUC goal of 400 - 600 range with trough as surrogate marker: 545 mg/L Date and Time for next Vancomycin Level to be drawn: 11/07 @1100 Pharmacist Comments on Vancomycin Plan: getting level after two doses due to timing; predicted trough of 15.6 mg/L Vancomycin dosing will take advantage of [employer] as a clinical decision support tool that uses Bayesian modeling to calculate individual patient's pharmacokinetic parameters and forecast the patient's drug concentration time course with the target goal AUC 24 range of 400 - 600 mg/L/hr.
--- NOTE | 2023-11-07 14:30 | PC.NURSE ---
Methadone dose veriffed with Denise JI. Patient denied methadone dose today d/t showing up impaired and lethargic at clinic. Last dose 190mg on 10/31/2023.
[2023-11-07 14:41] LABS: Creatinine Clr Calc Pharmacy 102.3; Estimated Glomerular Filt Rate > 60
[2023-11-07] MEDS: diphenhydrAMINE HCL 50 MG/ML VIAL 25 MG IVPUSH (14:51)
[2023-11-07 15:09] LABS: HCG Quantitative < 2 mIU/mL
[2023-11-07] MEDS: methADONE HCl 20 MG/2 ML ORAL.CONC 40 MG PO (15:17)
[2023-11-07] MEDS: Gabapentin 600 MG TABLET PO ×2 (15:17→22:38)
[2023-11-07] MEDS: iohexoL 350 MG/ML 100 ML INFUS..BTL 70 ML IV (15:41)
[2023-11-07 16:04] LABS: Appearance Urine Clear; Color Urine Yellow; Glucose Urine UA Negative (Negative); Leukocyte Esterase Urine Negative (Negative); Nitrite Urine Negative (Negative); PH 6.5 (5.0-9.0); Specific Gravity - Urine 1.025 (1.005-1.025); UMIC TRIGGER UACC YES; Urine Blood Negative (Negative); Urine Ketones 15 mg/dL (Negative); Urine Protein 30 (1+) mg/dL (Neg-Trace)
[2023-11-07 16:17] LABS: Amphetamine Screen Urine Not Detected (Not Detect); Barbiturates, Urine Not Detected (Not Detect); Benzodiazepines Screen Urine POSITIVE (Not Detect); Buprenorphine Scr Not Detected (Not Detect); Cannabinoid Screen Urine Not Detected (Not Detect); Cocaine Screen Urine POSITIVE (Not Detect); Fentanyl, urine POSITIVE (Not Detect); Methadone Screen, Urine Positive (Not Detect); Opiate Screen Urine POSITIVE (Not Detect); Oxycodone Screen Urine Not Detected (Not Detect); Phencyclidine Screen Urine Not Detected (Not Detect)
--- NOTE | 2023-11-07 16:28 | PHA.MEDREC ---
Pharmacy Consult ? Medication Reconciliation Pharmacy has completed the medication reconciliation. Patient unwilling to engage in conversation and says she taking everything and just want my meds . During interview, patient stated they take gabapentin, hydroxyzine, methadone, nicotine patch/gum, olanzapine, propanolol, ibuprofen, and quetiapine.
[2023-11-07 18:01] VITALS: BP 119/80; PULSE 75; RESP 16; TEMP 36.9; O2SAT 100
[2023-11-07 18:03] LABS: Bacteria Urine None Seen (None Seen); Hyaline Casts Urine 0-2 /LPF (0-2); RBC Urine 0-2 /HPF (0-2); Squamous Epithelial Cell Urine 0-2 /HPF (0-2); WBC Urine 0-5 /HPF (0-5)
--- NOTE | 2023-11-07 18:27 | PC.NURSE ---
Patient refusing care from staff, not allowing staff to do EKG and not answering admission questions. Patient will only reply with yes and no answers and will pull arms and legs away from staff when trying to take vitals. Camera in the room and call bond within reach. All other needs met at this time
--- NOTE | 2023-11-07 18:40 | P.CNNE_ITS ---
History of Present Illness Data of Consult Service Date: 11/07/23 Primary Care Provider: Unknown Physician HPI Reason for consult: Seizure 38 years old woman who came to hospital with not feeling well with underlying history of bipolar disorder, PTSD, and polydrug abuse who had a seizure while she was in emergency room. She was treated with midazolam and now admitted on intermediate care unit. She was quite drowsy when I saw her would said that she did not know what happened. 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 Patient Tobacco Use Status: Tobacco use Unknown Tobacco use type: Cigarette Cigarette Packs Per Day: 1.5 Cigarettes Per Day: 30.0 Years Smoked: 26 Smoked in Last 30 Days: No e-Cigarette/Vaping Use: Never Used Second Hand Smoke Exposure: Yes Use of substances other than those prescribed or required for medical reasons: Unknown Substance Use Type: Heroin Advance Directives: No Advance Directives Information Provided: No Do you have a plan to hurt others: No Plan Recently lost weight without trying: Unsure service: No Current occupational status: unemployed Sexual orientation: Don't Know Meds Allergies Allergy/AdvReac Type Severity Reaction Status Date / Time No Known Allergies Allergy Verified 11/07/23 12:03 [No Known Allergies*] Active Medications: Current Medications Acetaminophen (Acetaminophen 325 Mg Tablet) 650 mg PO Q6H PRN PRN Reason: Pain, Mild (Pain Scale 1-3), fever or headache Calcium Carbonate (Calcium Carbonate 750 Mg Tab.Chew) 750 mg PO Q4H PRN PRN Reason: Heartburn Enoxaparin Sodium (Enoxaparin Sodium 40 Mg/0.4 Ml Syringe) 40 mg SUBCUT Q24H [facility] Last Admin: 11/07/23 14:03 Dose: Not Given Gabapentin (Gabapentin 600 Mg Tablet) 600 mg PO TID JAIR Last Admin: 11/07/23 15:17 Dose: 600 mg Hydroxyzine HCl (Hydroxyzine Hcl 50 Mg Tablet) 50 mg PO Q6H PRN PRN Reason: Anxiety Levetiracetam (Keppra) 500 mg in 100 mls @ 400 mls/hr IV Q12H [facility] Sodium Chloride (Ns) 1,000 mls @ 75 mls/hr IVCONT .[id number] [facility] Last Admin: 11/07/23 14:16 Dose: 75 mls/hr Vancomycin HCl 1,250 mg/ (Sodium Chloride) 250 mls @ 166.667 mls/hr IV Q12H [facility] Ketorolac Tromethamine (Ketorolac Tromethamine 30 Mg/Ml Vial) 15 mg IVPUSH Q6H PRN PRN Reason: Pain, Mild (Pain Scale 1-3) Stop: 11/12/23 12:45 Lorazepam (Lorazepam 2 Mg/Ml Vial) 2 mg IVPUSH ONCE PRN PRN Reason: Seizures Magnesium Hydroxide (Milk Of Magnesia 30 Ml Oral.Susp) 30 ml PO DAILY PRN PRN Reason: Constipation Melatonin (Melatonin 3 Mg Tablet) 6 mg PO BEDTIME PRN PRN Reason: Insomnia Methadone HCl (Methadone Hcl 20 Mg/2 Ml Oral.Conc) 40 mg PO DAILY [facility] Last Admin: 11/07/23 15:17 Dose: 40 mg Methadone HCl (Methadone Hcl 20 Mg/2 Ml Oral.Conc) 10 mg PO DAILY PRN PRN Reason: CONTINUED WITHDRAWALS Morphine Sulfate (Morphine Sulfate 4 Mg/Ml Cartridge) 2 mg IVPUSH Q4H PRN; Protocol PRN Reason: Pain, Severe (Pain Scale 7-10) Olanzapine (Olanzapine 5 Mg Tablet) 5 mg PO BID [facility] Ondansetron HCl (Ondansetron Hcl 4 Mg/2 Ml Vial) 4 mg IVPUSH Q8H PRN PRN Reason: Nausea and Vomiting Pharmacy Consult (Consult Rx Vancomycin Dosing) 1 each MISCELLANE DAILY PRN PRN Reason: Consult order Quetiapine Fumarate (Quetiapine Fumarate 200 Mg Tablet) 200 mg PO BEDTIME [facility] Sodium Chloride (0.9 % Sodium Chloride Flush 3 Ml Syringe) 3 ml IVFLUSH QSHIFT [facility] Last Admin: 11/07/23 15:22 Dose: Not Given Home Medications ?Medication ?Instructions ?Recorded ?Confirmed ?Last Taken ?Type methadone 10 mg/mL oral 190 mg PO DAILY 08/09/23 11/07/23 10/31/23 09:00 History concentrate (Methadose) nicotine (polacrilex) 4 mg gum 4 mg PO QID PRN Nicotine Cravings 08/12/23 11/07/23 Unknown History gabapentin 800 mg tablet 800 mg PO TID 11/03/23 11/07/23 1 Week Ago History ~10/31/23 hydroxyzine HCl 50 mg tablet 50 mg PO BID 11/03/23 11/07/23 1 Week Ago History ~10/31/23 olanzapine 5 mg tablet (Zyprexa) 5 mg PO BID 11/03/23 11/07/23 1 Week Ago History ~10/31/23 propranolol 10 mg tablet 10 mg PO BID 11/03/23 11/07/23 1 Week Ago History ~10/31/23 quetiapine 200 mg tablet (Seroquel) 200 mg PO BEDTIME 11/03/23 11/07/23 1 Week Ago History ~10/31/23 ibuprofen 600 mg tablet 600 mg PO BID PRN Pain 11/07/23 11/07/23 Unknown History nicotine 21 mg/24 hr daily 1 patch topical DAILY 11/07/23 11/07/23 1 Week Ago History transdermal patch ~10/31/23 Physical Exam 2 Vital Signs: Vital Signs: Last Vital Signs Temp 98.4 F 11/07/23 18:01 Pulse 75 11/07/23 18:01 Resp 16 11/07/23 18:01 BP 119/80 11/07/23 18:01 Pulse Ox 100 11/07/23 18:01 O2 Del Method Room Air 11/07/23 18:01 BMI result Body Mass Index 24.3 Neuro: Other: Very drowsy said that she was sleeping. She was following commands. She did not know what had happened. There was no obvious focal weakness. Results Labs 11/07/23 13:28 11/07/23 14:17 Labs: Short CBC 11/07/23 Range/Units 13:28 WBC 7.4 (4.8-10.8) X10*3/uL Hgb 9.4 L (12.0-16.0) g/dl Hct 29.8 L (37.0-47.0) % Plt Count 304 (160-400) X10*3/uL BMP 11/07/23 11/07/23 13:28 14:17 Sodium 139 Potassium 3.6 Chloride 105 Carbon Dioxide 24 BUN 14 Creatinine 0.64 0.65 Calcium 8.9 D Liver Function 11/07/23 Range/Units 13:28 Total Bilirubin 0.3 (0.0-1.0) mg/dL AST 36 H (5-31) U/L ALT 40 H (0-31) U/L Alkaline Phosphatase 67 (39-117) U/L Albumin 4.0 (3.5-5.0) g/dL Urine 11/07/23 Range/Units 15:56 Urine Color Yellow Urine Appearance Clear Urine pH 6.5 (5.0-9.0) Ur Specific [place] 1.025 (1.005-1.025) Urine Protein 30 (1+) H (Neg-Trace) mg/dL Urine Glucose (UA) Negative (Negative) mg/dL Noncontrast head CT did not reveal any significant abnormality. CTA was okay. Assessment and Plan (1) Seizure: Status: Acute 38 years old woman with polydrug abuse with multiple drugs found on or tox screen had a seizure in emergency room. She was not febrile and there was no leukocytosis. Head CT did not reveal any significant abnormality. Seizure was probably chemical induced and does not necessarily require an antiepileptic. Mainstay of management is not using drugs. Unless another seizure happens while she is not using drugs, no further intervention for seizure is recommended. An EEG can be considered if her drowsiness would not improve within 12-24 hours. Procedures Date of Service Date of Service: 11/07/23
[2023-11-07 19:41] VITALS: BP 126/86; PULSE 72; RESP 18; TEMP 36.7; O2SAT 99
[2023-11-07] MEDS: levETIRAcetam in NaCl (iso-os) 500 MG/100 ML PIGGYBACK 400 MG IV (22:17)
[2023-11-07] MEDS: ondansetron HCL 4 MG/2 ML VIAL IVPUSH (22:34)
[2023-11-07] MEDS: OLANZapine 5 MG TABLET PO (22:37)
[2023-11-07] MEDS: 0.9 % Sodium Chloride Flush 3 ML SYRINGE IVFLUSH (22:38)
[2023-11-07] MEDS: QUEtiapine Fumarate 200 MG TABLET PO (22:38)
[2023-11-07 23:10] VITALS: BP 153/94; PULSE 73; RESP 18; TEMP 37.1; O2SAT 96
[2023-11-08] VITALS (8 sets, daily range): BP systolic 131–151; BP diastolic 71–89; PULSE 60–86; RESP 16–20; TEMP 36.2–38.1; O2SAT 95–100
[2023-11-08] MEDS: 0.9 % Sodium Chloride 1,000 ML 75 ML IVCONT (02:07)
--- NOTE | 2023-11-08 05:00 | ECG_ITS ---
Test Reason : arrythmia Blood Pressure : / mmHG Vent. Rate : 107 BPM Atrial Rate : 098 BPM P-R Int : 000 ms QRS Dur : 110 ms QT Int : 520 ms P-R-T Axes : 000 -32 -46 degrees QTc Int : 694 ms Normal sinus rhythm with polymorphic NSVT with junctional escape complexes Left axis deviation Nonspecific ST and T wave abnormality Abnormal ECG When compared with ECG of 08-NOV-2023 05:26, Polymorphic NSVT present ST now depressed in Anterior leads Referred By: Konstantin Cordon Electronically Signed By:LEON FERNANDES MD
[2023-11-08] MEDS: Morphine Sulfate 4 MG/ML CARTRIDGE 2 MG IVPUSH ×2 (05:56→13:51)
[2023-11-08 08:04] LABS: Hematocrit 35.9 % (37.0-47.0); Hemoglobin 11.4 g/dl (12.0-16.0); Mean Corpuscular HGB Conc 31.8 g/dl (31.0-35.0); Mean Corpuscular Hemoglobin 26.9 pg (27.0-33.0); Mean Corpuscular Volume 84.7 fL (80.0-98.0); Mean Platelet Volume 9.7 fL (9.4-12.3); Platelet Count 355 X10*3/uL (160-400); Red Blood Count 4.24 X10*6/uL (4.20-5.50); Red Cell Distribution Width 16.9 % (11.0-16.0); White Blood Count 7.3 X10*3/uL (4.8-10.8)
[2023-11-08 08:20] LABS: Alanine Aminotransferase 35 U/L (0-31); Albumin Level 3.8 g/dL (3.5-5.0); Alkaline Phosphatase 65 U/L (39-117); Anion Gap 15 (12-20); Aspartate Amino Transferase 33 U/L (5-31); Bilirubin Total 0.3 mg/dL (0.0-1.0); Blood Urea Nitrogen 10 mg/dL (9-16); Carbon Dioxide 21 mmol/L (22-29); Chloride 104 mmol/L (96-108); Creatinine Clr Calc Pharmacy 94.9; Estimated Glomerular Filt Rate > 60; Glucose Random 151 mg/dL (60-115); Potassium 3.3 mmol/L (3.3-5.1); Sodium 137 mmol/L (135-145); Total Protein 7.8 g/dL (6.5-8.0)
--- NOTE | 2023-11-08 09:33 | ECG_ITS ---
Test Reason : prolonged qtc Blood Pressure : / mmHG Vent. Rate : 079 BPM Atrial Rate : 079 BPM P-R Int : 124 ms QRS Dur : 088 ms QT Int : 510 ms P-R-T Axes : 046 -33 017 degrees QTc Int : 584 ms Sinus rhythm with Fusion complexes with Premature ventricular complexes Left axis deviation Nonspecific ST and T wave abnormality Prolonged QT Abnormal ECG When compared with ECG of 08-NOV-2023 05:26, Previous ECG has undetermined rhythm, needs review Questionable change in QRS duration Referred By: Konstantin Cordon Electronically Signed By:LEON FERNANDES MD
[2023-11-08] MEDS: 0.9 % Sodium Chloride Flush 3 ML SYRINGE IVFLUSH (09:56)
[2023-11-08] MEDS: vancomycin HCL 1,250 MG in 0.9 % Sodium Chloride 250 ML 166.67 MG IV (09:57)
[2023-11-08] MEDS: Nicotine 21 MG PATCH.TD24 TRANSDERMA (09:57)
[2023-11-08] MEDS: Propranolol HCL 10 MG TABLET PO ×2 (10:06→21:31)
[2023-11-08] MEDS: OLANZapine 5 MG TABLET PO (10:06)
[2023-11-08] MEDS: Gabapentin 600 MG TABLET PO ×3 (10:06→21:31)
[2023-11-08] MEDS: Magnesium Sulfate/H2O 2 GM/50 ML PIGGYBACK IV ×2 (10:38→12:18)
[2023-11-08] MEDS: Potassium Chloride ER 20 MEQ TAB.ER.PRT 60 MEQ PO (10:45)
--- NOTE | 2023-11-08 12:01 | HO.PM.IMPN ---
Subjective Subjective Date of Service: 11/08/23 Interval History: Seen and evaluated this morning partially sedated, answers questions then goes back to sleep asking for methadone QTc prolonged with multiple NSVTs and possible Torsade no other events Review of Systems Review of Systems: Yes all other systems are reviewed and are negative Physical Exam Vital Signs: Vital Signs: Last Vital Signs Temp 98.5 F 11/08/23 11:15 Pulse 60 11/08/23 11:15 Resp 20 11/08/23 11:15 BP 137/89 11/08/23 11:15 Pulse Ox 98 11/08/23 11:15 O2 Del Method Room Air 11/08/23 11:15 BMI result Body Mass Index 24.3 Const: Other: Constitutional : alert with stimul ation but goes rudi k to sleep, not in distress Cardiova scular : no JVP, n o lower extremity edema Respiratory : bilateral chest movement, not in r chago distress [place] rointestinal: sof t, lax, Non tender Skin : Warm, Dry, multiple skin scr atch nieves and les ions, no erythema though Neurologic al : alert with st imulation , No foc al deficit Objective Data Active Medications Acetaminophen (Acetaminophen 325 Mg Tablet) 650 mg PO Q6H PRN PRN Reason: Pain, Mild (Pain Scale 1-3), fever or headache Calcium Carbonate (Calcium Carbonate 750 Mg Tab.Chew) 750 mg PO Q4H PRN PRN Reason: Heartburn Enoxaparin Sodium (Enoxaparin Sodium 40 Mg/0.4 Ml Syringe) 40 mg SUBCUT Q24H [facility] Last Admin: 11/07/23 14:03 Dose: Not Given Documented By: CORA Non-Admin Reason: Patient Refused Gabapentin (Gabapentin 600 Mg Tablet) 600 mg PO TID [facility] Last Admin: 11/08/23 10:06 Dose: 600 mg Documented By: KARAN Hydroxyzine HCl (Hydroxyzine Hcl 50 Mg Tablet) 50 mg PO Q6H PRN PRN Reason: Anxiety Sodium Chloride (Ns) 1,000 mls @ 75 mls/hr IVCONT .[id number] [facility] Last Admin: 11/08/23 02:07 Dose: 75 mls/hr Documented By: JESSICA Vancomycin HCl 1,250 mg/ (Sodium Chloride) 250 mls @ 166.667 mls/hr IV Q12H [facility] Last Infusion: 11/08/23 11:39 Dose: Infused Documented By: KARAN Magnesium Sulfate (Magnesium Sulfate/H2o) 2 gm in 50 mls @ 25 mls/hr IV ONCE ONE Stop: 11/08/23 12:15 Last Admin: 11/08/23 10:38 Dose: 25 mls/hr Documented By: KARAN Magnesium Sulfate (Magnesium Sulfate/H2o) 2 gm in 50 mls @ 25 mls/hr IV ONCE ONE Stop: 11/08/23 13:20 Ketorolac Tromethamine (Ketorolac Tromethamine 30 Mg/Ml Vial) 15 mg IVPUSH Q6H PRN PRN Reason: Pain, Mild (Pain Scale 1-3) Stop: 11/12/23 12:45 Lorazepam (Lorazepam 2 Mg/Ml Vial) 2 mg IVPUSH ONCE PRN PRN Reason: Seizures Magnesium Hydroxide (Milk Of Magnesia 30 Ml Oral.Susp) 30 ml PO DAILY PRN PRN Reason: Constipation Melatonin (Melatonin 3 Mg Tablet) 6 mg PO BEDTIME PRN PRN Reason: Insomnia Methadone HCl (Methadone Hcl 20 Mg/2 Ml Oral.Conc) 40 mg PO DAILY [facility] Last Admin: 11/08/23 10:05 Dose: Not Given Documented By: KARAN Non-Admin Reason: hold per MD Methadone HCl (Methadone Hcl 20 Mg/2 Ml Oral.Conc) 10 mg PO DAILY PRN PRN Reason: CONTINUED WITHDRAWALS Morphine Sulfate (Morphine Sulfate 4 Mg/Ml Cartridge) 2 mg IVPUSH Q4H PRN; Protocol PRN Reason: Pain, Severe (Pain Scale 7-10) Last Admin: 11/08/23 05:56 Dose: 2 mg Documented By: JESSICA Nicotine (Nicotine 21 Mg Patch.Td24) 21 mg TRANSDERMA DAILY [facility] Last Admin: 11/08/23 09:57 Dose: 21 mg Documented By: KARAN Nicotine Polacrilex (Nicotine Polacrilex 2 Mg Gum) 4 mg BUCCAL QID PRN PRN Reason: Nicotine Cravings Olanzapine (Olanzapine 5 Mg Tablet) 5 mg PO BID [facility] Last Admin: 11/08/23 10:06 Dose: 5 mg Documented By: KARAN Ondansetron HCl (Ondansetron Hcl 4 Mg/2 Ml Vial) 4 mg IVPUSH Q8H PRN PRN Reason: Nausea and Vomiting Last Admin: 11/07/23 22:34 Dose: 4 mg Documented By: JESSICA Pharmacy Consult (Consult Rx Vancomycin Dosing) 1 each MISCELLANE DAILY PRN PRN Reason: Consult order Propranolol HCl (Propranolol Hcl 10 Mg Tablet) 10 mg PO BID [facility]; Protocol Last Admin: 11/08/23 10:06 Dose: 10 mg Documented By: KARAN Sodium Chloride (0.9 % Sodium Chloride Flush 3 Ml Syringe) 3 ml IVFLUSH QSHIFT [facility] Last Admin: 11/08/23 09:56 Dose: 3 ml Documented By: KARAN Labs 11/08/23 07:52 11/08/23 07:52 Labs: Laboratory Results - last 24 hr 11/07/23 11/07/23 11/07/23 13:28 14:17 15:56 MCV 85.1 MCH 26.9 L MCHC 31.5 RDW 16.7 H Plt Count 304 MPV 9.4 Immature Gran % (Auto) 0.4 Neut % (Auto) 87.2 H Lymph % (Auto) 8.8 L [place] % (Auto) 3.4 Eos % (Auto) 0.1 Baso % (Auto) 0.1 Lymph # (Auto) 0.7 L [place] # (Auto) 0.3 Eos # (Auto) 0.0 Baso # (Auto) 0.0 Abs Immat Gran (auto) 0.03 Absolute Neuts (auto) 6.4 Absolute Nucleated RBC 0.000 Nucleated RBC % (auto) 0.0 Anion Gap 14 Estim Creat Clear Calc 103.9 102.3 Estimated GFR > 60 > 60 Random Glucose 139 H Lactic Acid 1.2 Calcium 8.9 D Magnesium 1.9 Total Bilirubin 0.3 AST 36 H ALT 40 H Alkaline Phosphatase 67 Total Protein 7.5 Albumin 4.0 Beta HCG, Quant < 2 Urine Color Yellow Urine Appearance Clear Urine pH 6.5 Ur Specific [place] 1.025 Urine Protein 30 (1+) H Urine Glucose (UA) Negative Urine Ketones 15 Urine Blood Negative Urine Nitrite Negative Ur Leukocyte Esterase Negative Urine RBC 0-2 Urine WBC 0-5 Ur Squamous Epith Cells 0-2 Urine Bacteria None Seen Hyaline Casts 0-2 Urine Opiates Screen Ur Buprenorphine Scrn Ur Oxycodone Screen Urine Methadone Screen Urine Fentanyl Screen Ur Barbiturates Screen Ur Phencyclidine Scrn Ur Amphetamines Screen U Benzodiazepines Scrn Urine Cocaine Screen U Marijuana (THC) Screen 11/07/23 11/08/23 15:57 07:52 MCV 84.7 MCH 26.9 L MCHC 31.8 RDW 16.9 H Plt Count 355 MPV 9.7 Immature Gran % (Auto) Neut % (Auto) Lymph % (Auto) [place] % (Auto) Eos % (Auto) Baso % (Auto) Lymph # (Auto) [place] # (Auto) Eos # (Auto) Baso # (Auto) Abs Immat Gran (auto) Absolute Neuts (auto) Absolute Nucleated RBC 0.000 Nucleated RBC % (auto) 0.0 Anion Gap 15 Estim Creat Clear Calc 94.9 Estimated GFR > 60 Random Glucose 151 H Lactic Acid Calcium 9.0 Magnesium Total Bilirubin 0.3 AST 33 H ALT 35 H Alkaline Phosphatase 65 Total Protein 7.8 Albumin 3.8 Beta HCG, Quant Urine Color Urine Appearance Urine pH Ur Specific [place] Urine Protein Urine Glucose (UA) Urine Ketones Urine Blood Urine Nitrite Ur Leukocyte Esterase Urine RBC Urine WBC Ur Squamous Epith Cells Urine Bacteria Hyaline Casts Urine Opiates Screen POSITIVE H Ur Buprenorphine Scrn Not Detected Ur Oxycodone Screen Not Detected Urine Methadone Screen Positive H Urine Fentanyl Screen POSITIVE H Ur Barbiturates Screen Not Detected Ur Phencyclidine Scrn Not Detected Ur Amphetamines Screen Not Detected U Benzodiazepines Scrn POSITIVE H Urine Cocaine Screen POSITIVE H U Marijuana (THC) Screen Not Detected Microbiology Microbiology Results: Microbiology 11/08/23 07:52 Blood Culture - Final Blood - Venous Assessment and Plan (1) Seizure: Status: Acute (2) Substance abuse: Status: Acute (3) MRSA (methicillin resistant staph aureus) culture positive: Status: Acute (4) NSVT (nonsustained ventricular tachycardia): Status: Acute (5) Prolonged QT interval: Status: Acute Plan A 38 years old lady with PMH of Bipolar disease, IVDU who presents to ED with feeling unwell with a positive blood culture from 11/01 growing MRSA. NSVT with prolonged QTc QTc of 640 went down this morning to 580s Multiple incidents of NSVT overnight, one looks like Torsade Give Mg Sulphate Potassium replacement to keep it >4 Keep on Tele Hold Zyprexa, Zofran and Methadone Cardiology evaluation MRSA Bacteremia likely 2/2 skin infection and IVDU repeat blood cultures Continue Vancomycin ID consult follow trough NEw onset seizure Witness in ED, likely related to drugs withdrawal negative head CT Electrolytes within normal Loaded with Keppra, Discontinue Continue Gabapentin Lorazepam PRN for breakthrough seziures NEurology consult, no need of anti-epileptic at this point seizure Precautions Bipolar disease Continue Zyprexa, Atarax and Seroquel DVT PPx Lovenox The patient will need overnight for treatment of bacteremia pending negative repeat culture , Cardiac monitoring and specialist opinion. Quality Stroke Does the patient have a stroke diagnosis?: No VTE Prior VTE?: No VTE Risk Level:: Medical - moderate - high VTE Device Contraindication: Treatment Not Indicated VTE Drug Contraindication: N/A - Med Ordered
[2023-11-08] MEDS: Enoxaparin Sodium 40 MG/0.4 ML SYRINGE SUBCUT (12:18)
--- NOTE | 2023-11-08 12:30 | P.CONCA_ITS ---
History of Present Illness History of Present Illness Date of Service: 11/08/23 Requesting physician: Konstantin Cordon Consult reason: other (Ventricular arrhythmia) Chief complaint: Bacteremia, seizure Narrative: I was consulted to see Sangeeta in cardiology consultation today for ventricular arrhythmias. She is a poor historian does not respond much to verbal cues. Patient denies any cardiac complaints. On the monitor noted to have multiple short runs of polymorphic ventricular tachycardia initiated by a PVC, with a R on T phenomenon. Patient EKG underlying shows normal sinus rhythm with prolonged QT which is less than compared to prior EKG with PVCs with PVCs on T- waves along with junctional escapes. Patient noted to have potassium of 3.3 and magnesium of 1.9. She just received 2 g of IV magnesium. She also received p.o. potassium. Her other medications have been held. She has been admitted with possible seizure although appears unclear. She has been seen by Neurology. Her U tox is positive for multiple different drugs. She is also on methadone for treatment of her opiate abuse disorder. 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 Patient Tobacco Use Status: Tobacco use Unknown Tobacco use type: Cigarette Cigarette Packs Per Day: 1.5 Cigarettes Per Day: 30.0 Years Smoked: 26 Smoked in Last 30 Days: No e-Cigarette/Vaping Use: Never Used Second Hand Smoke Exposure: Yes Use of substances other than those prescribed or required for medical reasons: Unknown Substance Use Type: Heroin Currently Displaying Signs/Symptoms of Drug Intoxication Withdrawal: No Advance Directives: No Advance Directives Information Provided: No Do you have a plan to hurt others: No Plan Recently lost weight without trying: Unsure service: No Current occupational status: unemployed Sexual orientation: Don't Know Meds Allergies Allergy/AdvReac Type Severity Reaction Status Date / Time No Known Allergies Allergy Verified 11/07/23 12:03 [No Known Allergies*] Active Medications: Current Medications Acetaminophen (Acetaminophen 325 Mg Tablet) 650 mg PO Q6H PRN PRN Reason: Pain, Mild (Pain Scale 1-3), fever or headache Calcium Carbonate (Calcium Carbonate 750 Mg Tab.Chew) 750 mg PO Q4H PRN PRN Reason: Heartburn Enoxaparin Sodium (Enoxaparin Sodium 40 Mg/0.4 Ml Syringe) 40 mg SUBCUT Q24H [facility] Last Admin: 11/08/23 12:18 Dose: 40 mg Gabapentin (Gabapentin 600 Mg Tablet) 600 mg PO TID [facility] Last Admin: 11/08/23 10:06 Dose: 600 mg Hydroxyzine HCl (Hydroxyzine Hcl 50 Mg Tablet) 50 mg PO Q6H PRN PRN Reason: Anxiety Sodium Chloride (Ns) 1,000 mls @ 75 mls/hr IVCONT .[id number] [facility] Last Admin: 11/08/23 02:07 Dose: 75 mls/hr Vancomycin HCl 1,250 mg/ (Sodium Chloride) 250 mls @ 166.667 mls/hr IV Q12H [facility] Last Infusion: 11/08/23 11:39 Dose: Infused Magnesium Sulfate (Magnesium Sulfate/H2o) 2 gm in 50 mls @ 25 mls/hr IV ONCE ONE Stop: 11/08/23 13:20 Last Admin: 11/08/23 12:18 Dose: 25 mls/hr Ketorolac Tromethamine (Ketorolac Tromethamine 30 Mg/Ml Vial) 15 mg IVPUSH Q6H PRN PRN Reason: Pain, Mild (Pain Scale 1-3) Stop: 11/12/23 12:45 Lorazepam (Lorazepam 2 Mg/Ml Vial) 2 mg IVPUSH ONCE PRN PRN Reason: Seizures Magnesium Hydroxide (Milk Of Magnesia 30 Ml Oral.Susp) 30 ml PO DAILY PRN PRN Reason: Constipation Melatonin (Melatonin 3 Mg Tablet) 6 mg PO BEDTIME PRN PRN Reason: Insomnia Methadone HCl (Methadone Hcl 20 Mg/2 Ml Oral.Conc) 40 mg PO DAILY [facility] Last Admin: 11/08/23 10:05 Dose: Not Given Methadone HCl (Methadone Hcl 20 Mg/2 Ml Oral.Conc) 10 mg PO DAILY PRN PRN Reason: CONTINUED WITHDRAWALS Morphine Sulfate (Morphine Sulfate 4 Mg/Ml Cartridge) 2 mg IVPUSH Q4H PRN; Protocol PRN Reason: Pain, Severe (Pain Scale 7-10) Last Admin: 11/08/23 05:56 Dose: 2 mg Nicotine (Nicotine 21 Mg Patch.Td24) 21 mg TRANSDERMA DAILY [facility] Last Admin: 11/08/23 09:57 Dose: 21 mg Nicotine Polacrilex (Nicotine Polacrilex 2 Mg Gum) 4 mg BUCCAL QID PRN PRN Reason: Nicotine Cravings Olanzapine (Olanzapine 5 Mg Tablet) 5 mg PO BID [facility] Last Admin: 11/08/23 10:06 Dose: 5 mg Ondansetron HCl (Ondansetron Hcl 4 Mg/2 Ml Vial) 4 mg IVPUSH Q8H PRN PRN Reason: Nausea and Vomiting Last Admin: 11/07/23 22:34 Dose: 4 mg Pharmacy Consult (Consult Rx Vancomycin Dosing) 1 each MISCELLANE DAILY PRN PRN Reason: Consult order Propranolol HCl (Propranolol Hcl 10 Mg Tablet) 10 mg PO BID [facility]; Protocol Last Admin: 11/08/23 10:06 Dose: 10 mg Sodium Chloride (0.9 % Sodium Chloride Flush 3 Ml Syringe) 3 ml IVFLUSH [facility] Last Admin: 11/08/23 09:56 Dose: 3 ml Home Medications ?Medication ?Instructions ?Recorded ?Confirmed ?Last Taken ?Type methadone 10 mg/mL oral 190 mg PO DAILY 08/09/23 11/07/23 10/31/23 09:00 History concentrate (Methadose) nicotine (polacrilex) 4 mg gum 4 mg PO QID PRN Nicotine Cravings 08/12/23 11/07/23 Unknown History gabapentin 800 mg tablet 800 mg PO TID 11/03/23 11/07/23 1 Week Ago History ~10/31/23 hydroxyzine HCl 50 mg tablet 50 mg PO BID 11/03/23 11/07/23 1 Week Ago History ~10/31/23 olanzapine 5 mg tablet (Zyprexa) 5 mg PO BID 11/03/23 11/07/23 1 Week Ago History ~10/31/23 propranolol 10 mg tablet 10 mg PO BID 11/03/23 11/07/23 1 Week Ago History ~10/31/23 quetiapine 200 mg tablet (Seroquel) 200 mg PO BEDTIME 11/03/23 11/07/23 1 Week Ago History ~10/31/23 ibuprofen 600 mg tablet 600 mg PO BID PRN Pain 11/07/23 11/07/23 Unknown History nicotine 21 mg/24 hr daily 1 patch topical DAILY 11/07/23 11/07/23 1 Week Ago History transdermal patch ~10/31/23 Physical Exam 2 Vital Signs: Vital Signs: Last Vital Signs Temp 98.5 F 11/08/23 11:15 Pulse 60 11/08/23 11:15 Resp 20 11/08/23 11:15 BP 137/89 11/08/23 11:15 Pulse Ox 98 11/08/23 11:15 O2 Del Method Room Air 11/08/23 11:15 BMI result Body Mass Index 24.3 Const: General: no acute distress and other (Sleepy but arousable) N utritional Appearance: average body habitus Orientation/consciousness: p atient oriented x3 HEENT: Head: Yes normocephalic and Yes atraumatic Neck: Neck: Yes trachea midline, Yes supple and Yes no JVD Resp: Effort & Inspection: normal respiratory effort Auscultation: clear to auscultation bilaterally Cardio: Jugular venous distension: no JVD Palpation: normal PMI Rate: r egular rate Rhythm: regular rhythm Heart sounds: S1 normal heart sound present, S2 normal heart sound present, no click, no gallops and no murmurs GI: Auscultation: normal bowel sounds Skin: General skin exam: no rashes or lesions noted Neuro: General: patient oriented x3 and no focal motor deficits Extrem: General: Yes no clubbing, cyanosis or edema Objective Labs and Meds 11/08/23 07:52 11/08/23 07:52 Lab results: Laboratory Results - last 24 hr 11/07/23 11/07/23 11/07/23 13:28 14:17 15:56 WBC 7.4 RBC 3.50 L Hgb 9.4 L Hct 29.8 L MCV 85.1 MCH 26.9 L MCHC 31.5 RDW 16.7 H Plt Count 304 MPV 9.4 Immature Gran % (Auto) 0.4 Neut % (Auto) 87.2 H Lymph % (Auto) 8.8 L [place] % (Auto) 3.4 Eos % (Auto) 0.1 Baso % (Auto) 0.1 Lymph # (Auto) 0.7 L [place] # (Auto) 0.3 Eos # (Auto) 0.0 Baso # (Auto) 0.0 Abs Immat Gran (auto) 0.03 Absolute Neuts (auto) 6.4 Absolute Nucleated RBC 0.000 Nucleated RBC % (auto) 0.0 Sodium 139 Potassium 3.6 Chloride 105 Carbon Dioxide 24 Anion Gap 14 BUN 14 Creatinine 0.64 0.65 Estim Creat Clear Calc 103.9 102.3 Estimated GFR > 60 > 60 Random Glucose 139 H Lactic Acid 1.2 Calcium 8.9 D Magnesium 1.9 Total Bilirubin 0.3 AST 36 H ALT 40 H Alkaline Phosphatase 67 Total Protein 7.5 Albumin 4.0 Beta HCG, Quant < 2 Urine Color Yellow Urine Appearance Clear Urine pH 6.5 Ur Specific [place] 1.025 Urine Protein 30 (1+) H Urine Glucose (UA) Negative Urine Ketones 15 Urine Blood Negative Urine Nitrite Negative Ur Leukocyte Esterase Negative Urine RBC 0-2 Urine WBC 0-5 Ur Squamous Epith Cells 0-2 Urine Bacteria None Seen Hyaline Casts 0-2 Urine Opiates Screen Ur Buprenorphine Scrn Ur Oxycodone Screen Urine Methadone Screen Urine Fentanyl Screen Ur Barbiturates Screen Ur Phencyclidine Scrn Ur Amphetamines Screen U Benzodiazepines Scrn Urine Cocaine Screen U Marijuana (THC) Screen 11/07/23 11/08/23 15:57 07:52 WBC 7.3 RBC 4.24 D Hgb 11.4 L D Hct 35.9 L D MCV 84.7 MCH 26.9 L MCHC 31.8 RDW 16.9 H Plt Count 355 MPV 9.7 Immature Gran % (Auto) Neut % (Auto) Lymph % (Auto) [place] % (Auto) Eos % (Auto) Baso % (Auto) Lymph # (Auto) [place] # (Auto) Eos # (Auto) Baso # (Auto) Abs Immat Gran (auto) Absolute Neuts (auto) Absolute Nucleated RBC 0.000 Nucleated RBC % (auto) 0.0 Sodium 137 Potassium 3.3 Chloride 104 Carbon Dioxide 21 L Anion Gap 15 BUN 10 Creatinine 0.70 Estim Creat Clear Calc 94.9 Estimated GFR > 60 Random Glucose 151 H Lactic Acid Calcium 9.0 Magnesium Total Bilirubin 0.3 AST 33 H ALT 35 H Alkaline Phosphatase 65 Total Protein 7.8 Albumin 3.8 Beta HCG, Quant Urine Color Urine Appearance Urine pH Ur Specific [place] Urine Protein Urine Glucose (UA) Urine Ketones Urine Blood Urine Nitrite Ur Leukocyte Esterase Urine RBC Urine WBC Ur Squamous Epith Cells Urine Bacteria Hyaline Casts Urine Opiates Screen POSITIVE H Ur Buprenorphine Scrn Not Detected Ur Oxycodone Screen Not Detected Urine Methadone Screen Positive H Urine Fentanyl Screen POSITIVE H Ur Barbiturates Screen Not Detected Ur Phencyclidine Scrn Not Detected Ur Amphetamines Screen Not Detected U Benzodiazepines Scrn POSITIVE H Urine Cocaine Screen POSITIVE H U Marijuana (THC) Screen Not Detected Imaging Radiologist's impression: Impressions Head/Neck CTA 11/07/23 15:39 IMPRESSION: CT HEAD: No acute intracranial hemorrhage or territorial loss of ortiz-white differentiation. CTA NECK: No hemodynamically significant stenosis. CTA HEAD: No proximal vessel occlusion or high-grade stenosis. Assessment and Plan (1) NSVT (nonsustained ventricular tachycardia): Status: Acute Patient noted to have multiple short runs of nonsustained ventricular tachycardia, polymorphic suggestive of torsades due to underlying QT prolongation. QT prolongation could be multifactorial from use of methadone and other opiates possibly heroin in addition borderline hypokalemia and hypomagnesemia. At this point time I would hold all her offending medications including methadone and avoid any other QT prolonging medications. Aggressively treat hypokalemia and hypomagnesemia will replace it IV. Repeat potassium and magnesium level later this evening and maintain potassium above 4 and magnesium above 2. Continue full disclosure cardiac monitoring. EKG does show changes that could represent stress-induced cardiomyopathy. Recommend echocardiogram to evaluate for the same. Would repeat another 12 lead EKG once her electrolytes have been corrected to see what her QT interval would be. Daily EKGs. Will follow with you Procedures Date of Service Date of Service: 11/08/23
[2023-11-08] MEDS: Potassium Chloride/H20 10 MEQ/100 ML PIGGYBACK 100 MEQ IV ×4 (13:14→18:16)
[2023-11-08] MEDS: LORazepam 2 MG/ML VIAL IVPUSH (14:30)
--- NOTE | 2023-11-08 14:46 | MHC.CM.PN ---
CM approached pt to ask assessment questions, pt. said she does not want to talk with anyone at this time. EMR record review: pt. lives with grandmother, she goes to [facility] for Methadone. She was in this hospital in July, was DC to [facility] for STR. CM to follow and assist with DC plan.
[2023-11-08 19:18] LABS: Anion Gap 12 (12-20); Blood Urea Nitrogen 10 mg/dL (9-16); Carbon Dioxide 24 mmol/L (22-29); Chloride 105 mmol/L (96-108); Creatinine Clr Calc Pharmacy 94.9; Estimated Glomerular Filt Rate > 60; Glucose Random 141 mg/dL (60-115); Potassium 4.2 mmol/L (3.3-5.1); Sodium 137 mmol/L (135-145)
[2023-11-08] MEDS: vancomycin HCL 1,250 MG in 0.9 % Sodium Chloride 250 ML 166.6 MG IV (21:32)
[2023-11-08] MEDS: Melatonin 3 MG TABLET 6 MG PO (23:39)
[2023-11-08] MEDS: hydrOXYzine HCL 50 MG TABLET PO (23:39)
[2023-11-09] VITALS: BP 147/77; PULSE 68; RESP 20; TEMP 36.1; O2SAT 99
--- NOTE | 2023-11-09 | ECG_ITS ---
Test Reason : qtc check Blood Pressure : / mmHG Vent. Rate : 080 BPM Atrial Rate : 080 BPM P-R Int : 130 ms QRS Dur : 082 ms QT Int : 452 ms P-R-T Axes : 046 -28 004 degrees QTc Int : 521 ms Normal sinus rhythm Prolonged QT Abnormal ECG When compared with ECG of 08-NOV-2023 09:03, Premature ventricular complexes are no longer Present QT has shortened Referred By: Konstantin Cordon Electronically Signed By:DOMINGO JIMENEZ
[2023-11-09 03:05] VITALS: BP 129/86; PULSE 73; RESP 20; TEMP 36.1; O2SAT 98
[2023-11-09] MEDS: Ketorolac Tromethamine 30 MG/ML VIAL 15 MG IVPUSH ×2 (04:35→15:58)
[2023-11-09] MEDS: hydrOXYzine HCL 50 MG TABLET PO ×3 (06:03→19:21)
[2023-11-09 07:26] VITALS: BP 133/81; PULSE 71; RESP 18; TEMP 36.8; O2SAT 97
[2023-11-09] MEDS: Morphine Sulfate 4 MG/ML CARTRIDGE IVPUSH (08:54)
[2023-11-09] MEDS: Gabapentin 600 MG TABLET PO ×3 (08:56→19:21)
[2023-11-09] MEDS: Propranolol HCL 10 MG TABLET PO (08:56)
[2023-11-09] MEDS: LORazepam 2 MG/ML VIAL 1 MG IVPUSH (09:03)
[2023-11-09] MEDS: methADONE HCl 20 MG/2 ML ORAL.CONC 40 MG PO (09:05)
[2023-11-09] MEDS: vancomycin HCL 1,250 MG in 0.9 % Sodium Chloride 250 ML 166.6 MG IV ×2 (09:12→22:36)
[2023-11-09] MEDS: Nicotine 21 MG PATCH.TD24 TRANSDERMA (09:15)
[2023-11-09] MEDS: 0.9 % Sodium Chloride Flush 3 ML SYRINGE IVFLUSH ×2 (09:16→15:58)
[2023-11-09 09:30] LABS: Hemoglobin 10.9 g/dl (12.0-16.0); Mean Corpuscular HGB Conc 32.1 g/dl (31.0-35.0); Mean Corpuscular Volume 84.4 fL (80.0-98.0); Mean Platelet Volume 9.3 fL (9.4-12.3); Platelet Count 402 X10*3/uL (160-400); Red Blood Count 4.03 X10*6/uL (4.20-5.50); Red Cell Distribution Width 16.7 % (11.0-16.0); White Blood Count 9.4 X10*3/uL (4.8-10.8)
--- NOTE | 2023-11-09 09:41 | PM.PNCARD ---
Subjective Subjective Date of Service: 11/09/23 Interval history: Patient is unfortunately willing and screaming asking for meds. Hence difficult to have a meaningful conversation. Anyway, I calmed her down and she was able to lie down but she is still screaming. Review of Systems Review of Systems Yes all other systems are reviewed and are negative Constitutional: Reports as per HPI and Reports no additional constitutional complaints Eyes: Reports as per HPI and Denies no additional eye complaints Denies system reviewed and no additional complaints, except as documented and Reports as per HPI Cardiovascular: Reports as per HPI, Reports no additional cardiovascular complaints, Denies acrocyanosis, Denies cool extremities, Denies chest pain, Denies leg edema, Denies lightheadedness, Denies palpitations and Denies dyspnea Respiratory: Reports as per HPI, Denies no additional respiratory complaints and Denies dyspnea Gastrointestinal: Reports as per HPI and Denies no additional gastrointestinal complaints Genitourinary: Reports as per HPI Musculoskeletal: Reports no additional musculoskeletal complaints and Reports as per HPI Skin/Breast: Reports system reviewed and no additional complaints, except as docu Reports system reviewed and no additional complaints, except as documented and Reports as per HPI Psychiatric: Reports no additional psychiatric complaints and Reports as per HPI Endocrine: Reports no additional endocrine complaints, Reports as per HPI and Denies palpitations Hematologic/Lymphatic: Reports no additional hematologic/lymphatic complaints and Reports as per HPI Allergic/Immunologic: Reports no additional allergic/immunologic complaints and Reports as per HPI Physical Exam Vital Signs: Last Vital Signs Temp 98.2 F 11/09/23 07:26 Pulse 71 11/09/23 07:26 Resp 18 11/09/23 07:26 BP 133/81 11/09/23 07:26 Pulse Ox 97 11/09/23 07:26 O2 Del Method Room Air 11/09/23 07:26 BMI result Body Mass Index 24.3 Const Other: Yelling and screaming and also cursing General: combative and poor hygiene Orientation/consciousness: patient oriented x3 HEENT Other: Unremarkable Head: Yes normal to inspection Neck Neck: Yes normal visual inspection Chest Chest palpation & inspection: normal inspection of the chest Resp Auscultation: clear to auscultation bilaterally Cardio Palpation: normal PMI Heart sounds: S1 normal heart sound present, S2 normal heart sound present, no gallops, no murmurs and no rubs GI Palpation (GI): Soft to palpation Back/Spine/Pelvis Other: unremarkable Skin General skin exam: no rashes or lesions noted Neuro General: patient oriented x3 Extrem General: Yes normal to inspection Psych Mental Status: mental status grossly normal Objective Labs and Meds 11/09/23 09:09 11/08/23 18:44 Lab results: Laboratory Results - last 24 hr 11/08/23 11/09/23 18:44 09:09 WBC 9.4 RBC 4.03 L Hgb 10.9 L Hct 34.0 L MCV 84.4 MCH 27.0 MCHC 32.1 RDW 16.7 H Plt Count 402 H MPV 9.3 L Absolute Nucleated RBC 0.000 Nucleated RBC % (auto) 0.0 Sodium 137 Potassium 4.2 D Chloride 105 Carbon Dioxide 24 Anion Gap 12 BUN 10 Creatinine 0.70 Estim Creat Clear Calc 94.9 Estimated GFR > 60 Random Glucose 141 H Calcium 9.0 ECG Interpretation: In today's EKG, underlying rhythm is sinus at 80/Min; normal MO; corrected QT is 521 milliseconds. Progress Note: A&P Assessment and plan (1) Prolonged QT interval: Status: Acute (2) Polymorphic ventricular tachycardia: Status: Acute (3) Substance abuse: Status: Acute Plan Prolonged QT is improved from before but still longer than ideal. There is no further evidence of polymorphic VT on telemetry. Correct electrolytes -potassium and magnesium. Avoid beta-blockers as lower heart rates can lead to higher likelihood of torsade. Will need to get addiction Medicine involved in her to decide on methadone. Patient is screaming in her room that she is withdrawing and hence will need to decide on the dose. She may need some methadone but not too much and need to be a balance with regard to cardiac arrhythmias. Discussed with Dr. Cordon. Time Spent With Patient Time: Total time managing care of this patient today ____ minutes. Progress Note: Quality Stroke Does the patient have a stroke diagnosis?: No Procedures Date of Service Date of Service: 11/09/23
[2023-11-09 09:45] LABS: Anion Gap 12 (12-20); Blood Urea Nitrogen 19 mg/dL (9-16); Calcium 9.3 mg/dL (8.4-10.2); Carbon Dioxide 22 mmol/L (22-29); Chloride 108 mmol/L (96-108); Creatinine Clr Calc Pharmacy 88.7; Estimated Glomerular Filt Rate > 60; Glucose Random 157 mg/dL (60-115); Magnesium 2.4 mg/dL (1.6-2.6); Potassium 3.7 mmol/L (3.3-5.1); Sodium 138 mmol/L (135-145)
--- NOTE | 2023-11-09 11:05 | MHC.CM.PN ---
Per ROUNDS discussion, Patient is not yet medically cleared for dc (BC Pending); home is the goal and CM will continue to follow.
--- NOTE | 2023-11-09 11:48 | HO.PM.IMPN ---
Subjective Subjective Date of Service: 11/09/23 Interval History: Seen and evaluated this morning Screaming and yelling, asking for opioids as she reports withdrawals No NSVTs overnight on Tele asking for methadone no other events Review of Systems Review of Systems: Yes all other systems are reviewed and are negative Physical Exam Vital Signs: Vital Signs: Last Vital Signs Temp 98.2 F 11/09/23 07:26 Pulse 71 11/09/23 07:26 Resp 18 11/09/23 07:26 BP 133/81 11/09/23 07:26 Pulse Ox 97 11/09/23 07:26 O2 Del Method Room Air 11/09/23 07:26 BMI result Body Mass Index 24.3 Const: Other: Constitutional : alert, anxious , restless Cardiova scular : no JVP, n o lower extremity edema Respiratory : bilateral chest movement, not in r chago distress [place] rointestinal: sof t, lax, Non tender Skin : Warm, Dry, multiple skin scr atch nieves and les ions, no erythema though Neurologic al : alert , No fo roel deficit Objective Data Active Medications Acetaminophen (Acetaminophen 325 Mg Tablet) 650 mg PO Q6H PRN PRN Reason: Pain, Mild (Pain Scale 1-3), fever or headache Calcium Carbonate (Calcium Carbonate 750 Mg Tab.Chew) 750 mg PO Q4H PRN PRN Reason: Heartburn Enoxaparin Sodium (Enoxaparin Sodium 40 Mg/0.4 Ml Syringe) 40 mg SUBCUT Q24H [facility] Last Admin: 11/08/23 12:18 Dose: 40 mg Documented By: KARAN Gabapentin (Gabapentin 600 Mg Tablet) 600 mg PO TID [facility] Last Admin: 11/09/23 08:56 Dose: 600 mg Documented By: TALITA Hydroxyzine HCl (Hydroxyzine Hcl 50 Mg Tablet) 50 mg PO Q6H PRN PRN Reason: Anxiety Last Admin: 11/09/23 06:03 Dose: 50 mg Documented By: JONNACL Vancomycin HCl 1,250 mg/ (Sodium Chloride) 250 mls @ 166.667 mls/hr IV Q12H [facility] Last Infusion: 11/09/23 10:56 Dose: Infused Documented By: TALITA Ketorolac Tromethamine (Ketorolac Tromethamine 30 Mg/Ml Vial) 15 mg IVPUSH Q6H PRN PRN Reason: Pain, Mild (Pain Scale 1-3) Stop: 11/12/23 12:45 Last Admin: 11/09/23 04:35 Dose: 15 mg Documented By: SERINA Lorazepam (Lorazepam 2 Mg/Ml Vial) 0.5 mg IVPUSH Q6H PRN PRN Reason: anxiety/restlessness Magnesium Hydroxide (Milk Of Magnesia 30 Ml Oral.Susp) 30 ml PO DAILY PRN PRN Reason: Constipation Melatonin (Melatonin 3 Mg Tablet) 6 mg PO BEDTIME PRN PRN Reason: Insomnia Last Admin: 11/08/23 23:39 Dose: 6 mg Documented By: SERINA Methadone HCl (Methadone Hcl 20 Mg/2 Ml Oral.Conc) 40 mg PO DAILY [facility] Last Admin: 11/09/23 09:05 Dose: 40 mg Documented By: TALITA Co-signed By: IVIS Methadone HCl (Methadone Hcl 20 Mg/2 Ml Oral.Conc) 10 mg PO DAILY PRN PRN Reason: CONTINUED WITHDRAWALS Morphine Sulfate (Morphine Sulfate 4 Mg/Ml Cartridge) 2 mg IVPUSH Q4H PRN; Protocol PRN Reason: Pain, Severe (Pain Scale 7-10) Last Admin: 11/08/23 13:51 Dose: 2 mg Documented By: KARAN Nicotine (Nicotine 21 Mg Patch.Td24) 21 mg TRANSDERMA DAILY [facility] Last Admin: 11/09/23 09:15 Dose: 21 mg Documented By: TALITA Nicotine Polacrilex (Nicotine Polacrilex 2 Mg Gum) 4 mg BUCCAL QID PRN PRN Reason: Nicotine Cravings Olanzapine (Olanzapine 5 Mg Tablet) 5 mg PO BID [facility] Last Admin: 11/08/23 10:06 Dose: 5 mg Documented By: KARAN Ondansetron HCl (Ondansetron Hcl 4 Mg/2 Ml Vial) 4 mg IVPUSH Q8H PRN PRN Reason: Nausea and Vomiting Last Admin: 11/07/23 22:34 Dose: 4 mg Documented By: JESSICA Pharmacy Consult (Consult Rx Vancomycin Dosing) 1 each MISCELLANE DAILY PRN PRN Reason: Consult order Sodium Chloride (0.9 % Sodium Chloride Flush 3 Ml Syringe) 3 ml IVFLUSH QSHIFT [facility] Last Admin: 11/09/23 09:16 Dose: 3 ml Documented By: TALITA Labs 11/09/23 09:09 11/09/23 09:09 Labs: Laboratory Results - last 24 hr 11/08/23 11/09/23 18:44 09:09 MCV 84.4 MCH 27.0 MCHC 32.1 RDW 16.7 H Plt Count 402 H MPV 9.3 L Absolute Nucleated RBC 0.000 Nucleated RBC % (auto) 0.0 Anion Gap 12 12 Estim Creat Clear Calc 94.9 88.7 Estimated GFR > 60 > 60 Random Glucose 141 H 157 H Calcium 9.0 9.3 Magnesium 2.4 Microbiology Microbiology Results: Microbiology 11/08/23 08:29 Blood Culture - Preliminary Blood - Venous No growth after 24 hours. 11/08/23 07:52 Blood Culture - Preliminary Blood - Venous No growth after 24 hours. 11/07/23 13:28 Blood Culture - Preliminary Blood - Venous No growth after 24 hours. 11/08/23 07:52 Blood Culture - Final Blood - Venous Assessment and Plan (1) Polymorphic ventricular tachycardia: Status: Acute (2) Prolonged QT interval: Status: Acute (3) NSVT (nonsustained ventricular tachycardia): Status: Acute (4) Seizure: Status: Acute (5) Substance abuse: Status: Acute (6) MRSA (methicillin resistant staph aureus) culture positive: Status: Acute (7) Opiate abuse, continuous: Status: Acute (8) Opioid abuse with opioid-induced mood disorder: Status: Acute Plan A 38 years old lady with PMH of Bipolar disease, IVDU who presents to ED with feeling unwell with a positive blood culture from 11/01 growing MRSA. NSVT with prolonged QTc QTc went down this morning to 520s Potassium and Mg replacement to keep it >4 & >2 Keep on Tele restart Zyprexa as she became restless and agitated DC Zofran Restart small dose Methadone 40 mg bid prn for now Cardiology evaluation MRSA Bacteremia likely 2/2 skin infection and IVDU repeat blood cultures pending Continue Vancomycin ID consult pending ECHO follow trough NEw onset seizure Witness in ED, likely related to drugs withdrawal negative head CT Electrolytes within normal Loaded with Keppra, Discontinue Continue Gabapentin Lorazepam PRN for breakthrough seziures NEurology consult, no need of anti-epileptic at this point seizure Precautions Hx substance abuse on MEthadone restart Methadone small dose along with Oxycodone for now Ativan PRN for withdrawal symptoms Addiction team eval Bipolar disease with increase agitation HOLD Atarax and Seroquel Continue Zyprexa Psych eval for medication advice. DVT PPx Lovenox The patient will need overnight for treatment of bacteremia pending negative repeat culture , Cardiac monitoring and specialist opinion. Quality Stroke Does the patient have a stroke diagnosis?: No VTE Prior VTE?: No VTE Risk Level:: Medical - moderate - high VTE Device Contraindication: Treatment Not Indicated VTE Drug Contraindication: N/A - Med Ordered
--- NOTE | 2023-11-09 12:05 | HO.ADDICTPRO ---
Subjective Subjective Date of Service: 11/09/23 Reason For Visit: Bacteremia, seizure Interim History: Patient medically admitted with new onset seizure. During admission QT prolongation noted and methadone dose held for a day OTP verified last methadone dose administered 10/31/23 190mg Reportedly presented to OTP on 11/06 and was not dosed due to presentation Today received 40mg methadone and PRN lorazepam for both withdrawal and overall emotional distress Asleep soundly when this greeting card writer went to meet with her, so information gathered from chart review and RN on floor. Seen by cardiology this morning who advised that methadone could be restarted at lower doses and monitored closely QTc on 11/07 694 today 521 Electrolytes WNL Discussed with attending Review of Systems Review of Systems Yes Unobtainable due to mental status (patient allowed to sleep ) Mental Status Exam Mental Status Exam Level of Consciousness: Sedated (following medication administration ) Diagnostics Vital Signs (24Hr): Vital Signs - 24 hr 11/08/23 16:00 11/08/23 21:29 11/08/23 21:31 Temperature 98.9 F 97.2 F Pulse Rate 86 69 69 Respiratory Rate 16 20 Blood Pressure 132/89 131/80 131/80 Pulse Oximetry 98 100 Oxygen Delivery Method Room Air Room Air 11/09/23 00:00 11/09/23 03:05 11/09/23 07:26 Temperature 96.9 F 96.9 F 98.2 F Pulse Rate 68 73 71 Respiratory Rate 20 20 18 Blood Pressure 147/77 H 129/86 133/81 Pulse Oximetry 99 98 97 Oxygen Delivery Method Room Air Room Air Room Air BMI result Body Mass Index 24.3 Labs 11/09/23 09:09 11/09/23 09:09 Labs: Laboratory Results - last 48 hr 11/07/23 11/07/23 11/07/23 13:28 14:17 15:56 WBC 7.4 RBC 3.50 L Hgb 9.4 L Hct 29.8 L MCV 85.1 MCH 26.9 L MCHC 31.5 RDW 16.7 H Plt Count 304 MPV 9.4 Immature Gran % (Auto) 0.4 Neut % (Auto) 87.2 H Lymph % (Auto) 8.8 L Ida % (Auto) 3.4 Eos % (Auto) 0.1 Baso % (Auto) 0.1 Lymph # (Auto) 0.7 L Ida # (Auto) 0.3 Eos # (Auto) 0.0 Baso # (Auto) 0.0 Abs Immat Gran (auto) 0.03 Absolute Neuts (auto) 6.4 Absolute Nucleated RBC 0.000 Nucleated RBC % (auto) 0.0 Sodium 139 Potassium 3.6 Chloride 105 Carbon Dioxide 24 Anion Gap 14 BUN 14 Creatinine 0.64 0.65 Estim Creat Clear Calc 103.9 102.3 Estimated GFR > 60 > 60 Random Glucose 139 H Lactic Acid 1.2 Calcium 8.9 D Magnesium 1.9 Total Bilirubin 0.3 AST 36 H ALT 40 H Alkaline Phosphatase 67 Total Protein 7.5 Albumin 4.0 Beta HCG, Quant < 2 Urine Color Yellow Urine Appearance Clear Urine pH 6.5 Ur Specific [place] 1.025 Urine Protein 30 (1+) H Urine Glucose (UA) Negative Urine Ketones 15 Urine Blood Negative Urine Nitrite Negative Ur Leukocyte Esterase Negative Urine RBC 0-2 Urine WBC 0-5 Ur Squamous Epith Cells 0-2 Urine Bacteria None Seen Hyaline Casts 0-2 Urine Opiates Screen Ur Buprenorphine Scrn Ur Oxycodone Screen Urine Methadone Screen Urine Fentanyl Screen Ur Barbiturates Screen Ur Phencyclidine Scrn Ur Amphetamines Screen U Benzodiazepines Scrn Urine Cocaine Screen U Marijuana (THC) Screen 11/07/23 11/08/23 11/08/23 15:57 07:52 18:44 WBC 7.3 RBC 4.24 D Hgb 11.4 L D Hct 35.9 L D MCV 84.7 MCH 26.9 L MCHC 31.8 RDW 16.9 H Plt Count 355 MPV 9.7 Immature Gran % (Auto) Neut % (Auto) Lymph % (Auto) Ida % (Auto) Eos % (Auto) Baso % (Auto) Lymph # (Auto) Ida # (Auto) Eos # (Auto) Baso # (Auto) Abs Immat Gran (auto) Absolute Neuts (auto) Absolute Nucleated RBC 0.000 Nucleated RBC % (auto) 0.0 Sodium 137 137 Potassium 3.3 4.2 D Chloride 104 105 Carbon Dioxide 21 L 24 Anion Gap 15 12 BUN 10 10 Creatinine 0.70 0.70 Estim Creat Clear Calc 94.9 94.9 Estimated GFR > 60 > 60 Random Glucose 151 H 141 H Lactic Acid Calcium 9.0 9.0 Magnesium Total Bilirubin 0.3 AST 33 H ALT 35 H Alkaline Phosphatase 65 Total Protein 7.8 Albumin 3.8 Beta HCG, Quant Urine Color Urine Appearance Urine pH Ur Specific [place] Urine Protein Urine Glucose (UA) Urine Ketones Urine Blood Urine Nitrite Ur Leukocyte Esterase Urine RBC Urine WBC Ur Squamous Epith Cells Urine Bacteria Hyaline Casts Urine Opiates Screen POSITIVE H Ur Buprenorphine Scrn Not Detected Ur Oxycodone Screen Not Detected Urine Methadone Screen Positive H Urine Fentanyl Screen POSITIVE H Ur Barbiturates Screen Not Detected Ur Phencyclidine Scrn Not Detected Ur Amphetamines Screen Not Detected U Benzodiazepines Scrn POSITIVE H Urine Cocaine Screen POSITIVE H U Marijuana (THC) Screen Not Detected 11/09/23 09:09 WBC 9.4 RBC 4.03 L Hgb 10.9 L Hct 34.0 L MCV 84.4 MCH 27.0 MCHC 32.1 RDW 16.7 H Plt Count 402 H MPV 9.3 L Immature Gran % (Auto) Neut % (Auto) Lymph % (Auto) Ida % (Auto) Eos % (Auto) Baso % (Auto) Lymph # (Auto) Ida # (Auto) Eos # (Auto) Baso # (Auto) Abs Immat Gran (auto) Absolute Neuts (auto) Absolute Nucleated RBC 0.000 Nucleated RBC % (auto) 0.0 Sodium 138 Potassium 3.7 Chloride 108 Carbon Dioxide 22 Anion Gap 12 BUN 19 H Creatinine 0.75 Estim Creat Clear Calc 88.7 Estimated GFR > 60 Random Glucose 157 H Lactic Acid Calcium 9.3 Magnesium 2.4 Total Bilirubin AST ALT Alkaline Phosphatase Total Protein Albumin Beta HCG, Quant Urine Color Urine Appearance Urine pH Ur Specific [place] Urine Protein Urine Glucose (UA) Urine Ketones Urine Blood Urine Nitrite Ur Leukocyte Esterase Urine RBC Urine WBC Ur Squamous Epith Cells Urine Bacteria Hyaline Casts Urine Opiates Screen Ur Buprenorphine Scrn Ur Oxycodone Screen Urine Methadone Screen Urine Fentanyl Screen Ur Barbiturates Screen Ur Phencyclidine Scrn Ur Amphetamines Screen U Benzodiazepines Scrn Urine Cocaine Screen U Marijuana (THC) Screen Imaging Radiology Impressions: ITS Impressions Head/Neck CTA 11/07/23 15:39 IMPRESSION: CT HEAD: No acute intracranial hemorrhage or territorial loss of ortiz-white differentiation. CTA NECK: No hemodynamically significant stenosis. CTA HEAD: No proximal vessel occlusion or high-grade stenosis. Medications Medications Current Medications Acetaminophen (Acetaminophen 325 Mg Tablet) 650 mg PO Q6H PRN PRN Reason: Pain, Mild (Pain Scale 1-3), fever or headache Calcium Carbonate (Calcium Carbonate 750 Mg Tab.Chew) 750 mg PO Q4H PRN PRN Reason: Heartburn Enoxaparin Sodium (Enoxaparin Sodium 40 Mg/0.4 Ml Syringe) 40 mg SUBCUT Q24H [facility] Last Admin: 11/08/23 12:18 Dose: 40 mg Gabapentin (Gabapentin 600 Mg Tablet) 600 mg PO TID [facility] Last Admin: 11/09/23 08:56 Dose: 600 mg Hydroxyzine HCl (Hydroxyzine Hcl 50 Mg Tablet) 50 mg PO Q6H PRN PRN Reason: Anxiety Last Admin: 11/09/23 06:03 Dose: 50 mg Vancomycin HCl 1,250 mg/ (Sodium Chloride) 250 mls @ 166.667 mls/hr IV Q12H [facility] Last Infusion: 11/09/23 10:56 Dose: Infused Ketorolac Tromethamine (Ketorolac Tromethamine 30 Mg/Ml Vial) 15 mg IVPUSH Q6H PRN PRN Reason: Pain, Mild (Pain Scale 1-3) Stop: 11/12/23 12:45 Last Admin: 11/09/23 04:35 Dose: 15 mg Lorazepam (Lorazepam 2 Mg/Ml Vial) 0.5 mg IVPUSH Q6H PRN PRN Reason: anxiety/restlessness Magnesium Hydroxide (Milk Of Magnesia 30 Ml Oral.Susp) 30 ml PO DAILY PRN PRN Reason: Constipation [facility] Melatonin (Melatonin 3 Mg Tablet) 6 mg PO BEDTIME PRN PRN Reason: Insomnia Last Admin: 11/08/23 23:39 Dose: 6 mg Methadone HCl (Methadone Hcl 20 Mg/2 Ml Oral.Conc) 10 mg PO DAILY PRN PRN Reason: CONTINUED WITHDRAWALS Methadone HCl (Methadone Hcl 20 Mg/2 Ml Oral.Conc) 40 mg PO BID PRN PRN Reason: Opiate Withdrawal Nicotine (Nicotine 21 Mg Patch.Td24) 21 mg TRANSDERMA DAILY [facility] Last Admin: 11/09/23 09:15 Dose: 21 mg Nicotine Polacrilex (Nicotine Polacrilex 2 Mg Gum) 4 mg BUCCAL QID PRN PRN Reason: Nicotine Cravings Olanzapine (Olanzapine 5 Mg Tablet) 5 mg PO BID [facility] Last Admin: 08/11/24 10:06 Dose: 5 mg Ondansetron HCl (Ondansetron Hcl 4 Mg/2 Ml Vial) 4 mg IVPUSH Q8H PRN PRN Reason: Nausea and Vomiting Last Admin: 11/07/23 22:34 Dose: 4 mg Oxycodone HCl (Oxycodone Hcl Immed Release 5 Mg Tablet) 5 mg PO Q4H PRN PRN Reason: Opiate Withdrawal Pharmacy Consult (Consult Rx Vancomycin Dosing) 1 each MISCELLANE DAILY PRN PRN Reason: Consult order Potassium Chloride (Potassium Chloride Er 20 Meq Tab.Er.Prt) 60 meq PO ONCE ONE Stop: 11/09/23 11:51 Sodium Chloride (0.9 % Sodium Chloride Flush 3 Ml Syringe) 3 ml IVFLUSH QSHIFT [facility] Last Admin: 11/09/23 09:16 Dose: 3 ml Allergies Allergies Allergy/AdvReac Type Severity Reaction Status Date / Time No Known Allergies Allergy Verified 11/07/23 12:03 [No Known Allergies*] Assessment & Plan Assessment & Plan (1) Opioid use disorder, moderate, dependence: Status: Acute Code(s): F11.20 - Opioid dependence, uncomplicated Assessment and Plan: split dose and slowly titrate today already had 40mg added methadone 10mg PRN if needed this evening tomorrow can add 15-20 to late afternoon and recheck EKG If not improving, consider transition to buprenorphine PRN oxycodone or morphine to address any withdrawal sx not addressed by methadone Total time managing care of this patient today __30__ minutes.
[2023-11-09] MEDS: Magnesium Oxide 400 MG TABLET PO ×2 (12:25→15:57)
[2023-11-09] MEDS: Potassium Chloride ER 20 MEQ TAB.ER.PRT 60 MEQ PO (12:25)
[2023-11-09] MEDS: Enoxaparin Sodium 40 MG/0.4 ML SYRINGE SUBCUT (12:26)
[2023-11-09 16:00] VITALS: BP 142/97; PULSE 69; RESP 18; TEMP 36.5; O2SAT 98
[2023-11-09] MEDS: diphenhydrAMINE HCL 50 MG/ML VIAL 25 MG IVPUSH (16:42)
[2023-11-09] MEDS: LORazepam 2 MG/ML VIAL 0.5 MG IVPUSH (16:45)
[2023-11-09] MEDS: OLANZapine 5 MG TABLET PO (19:21)
[2023-11-09] MEDS: Acetaminophen 325 MG TABLET 650 MG PO (19:23)
[2023-11-09 19:34] LABS: Vancomycin Random 11.6 mcg/mL (15-20)
[2023-11-09 19:45] VITALS: BP 135/97; PULSE 73; RESP 20; TEMP 36.7; O2SAT 93
--- NOTE | 2023-11-09 19:47 | HE.PHANOTE ---
VANCO DOSE ADJUSTMENT BASED ON TROUGH OF 11.6 DOSE CONTINUED AT 1250 Q 12H. TROUGH IS ON TARGET AT SS OF 11.6 AUC OF 466
[2023-11-09 23:31] VITALS: BP 152/90; PULSE 74; RESP 20; TEMP 37.4; O2SAT 96
[2023-11-10] MEDS: Ketorolac Tromethamine 30 MG/ML VIAL 15 MG IVPUSH ×2 (00:01→06:32)
[2023-11-10] MEDS: LORazepam 2 MG/ML VIAL 0.5 MG IVPUSH ×2 (00:02→06:33)
[2023-11-10] MEDS: 0.9 % Sodium Chloride Flush 3 ML SYRINGE IVFLUSH ×2 (00:04→07:55)
[2023-11-10 03:44] VITALS: BP 139/93; PULSE 83; RESP 20; TEMP 36.8; O2SAT 98
[2023-11-10] MEDS: diphenhydrAMINE HCL 50 MG/ML VIAL 25 MG IVPUSH (03:53)
[2023-11-10] MEDS: hydrOXYzine HCL 50 MG TABLET PO (03:53)
[2023-11-10] MEDS: Gabapentin 600 MG TABLET PO (07:54)
[2023-11-10] MEDS: methADONE HCl 20 MG/2 ML ORAL.CONC 40 MG PO (07:54)
[2023-11-10] MEDS: Magnesium Oxide 400 MG TABLET PO (07:54)
[2023-11-10] MEDS: OLANZapine 5 MG TABLET PO (07:54)
[2023-11-10] MEDS: Nicotine 21 MG PATCH.TD24 TRANSDERMA (07:54)
[2023-11-10] MEDS: vancomycin HCL 1,250 MG in 0.9 % Sodium Chloride 250 ML 166.67 MG IV (07:56)
[2023-11-10 08:00] VITALS: BP 155/95; PULSE 83; RESP 18; TEMP 36.6; O2SAT 98
[2023-11-10 08:42] LABS: Hematocrit 34.9 % (37.0-47.0); Hemoglobin 10.7 g/dl (12.0-16.0); Mean Corpuscular HGB Conc 30.7 g/dl (31.0-35.0); Mean Corpuscular Hemoglobin 26.4 pg (27.0-33.0); Mean Platelet Volume 9.3 fL (9.4-12.3); Platelet Count 353 X10*3/uL (160-400); Red Blood Count 4.06 X10*6/uL (4.20-5.50); Red Cell Distribution Width 16.3 % (11.0-16.0); White Blood Count 8.4 X10*3/uL (4.8-10.8)
[2023-11-10 08:51] LABS: Creatinine Clr Calc Pharmacy 83.1; Estimated Glomerular Filt Rate > 60
[2023-11-10 08:53] LABS: Anion Gap 12 (12-20); Blood Urea Nitrogen 19 mg/dL (9-16); Calcium 9.3 mg/dL (8.4-10.2); Carbon Dioxide 18 mmol/L (22-29); Chloride 111 mmol/L (96-108); Creatinine Clr Calc Pharmacy 86.4; Estimated Glomerular Filt Rate > 60; Glucose Random 111 mg/dL (60-115); Potassium 4.1 mmol/L (3.3-5.1); Sodium 137 mmol/L (135-145)
--- NOTE | 2023-11-10 10:21 | PM.DS ---
DS: Providers Provider Date of Service: 11/10/23 Date of admission: 11/07/23 12:46 Primary care physician: Unknown Physician Consults: 11/07/23 12:46 Consult to Infectious Diseases Routine Consulting Provider: [facility] Reason for consultation: MRSA bacteremia Consult to Neurology Routine Consulting Provider: [facility] Reason for consultation: New onset seizure, Drug withdrawal seizure, Bacteremia MRSA 11/08/23 10:16 Consult to Cardiology Routine Consulting Provider: [facility] Reason for consultation: Frequent NSVT, PRolonged QTc 11/09/23 07:41 Addiction Medicine Routine Consulting Provider: Addiction Covering Reason for consultation: Address Methadone need and dosage. 11/09/23 11:54 Consult to Psychiatry Routine Consulting Provider: Psych Covering Reason for consultation: Agitation, Prolonged QTc , Medications advice DS: Diagnosis Discharge Diagnosis (1) Opioid use disorder, moderate, dependence: Status: Acute (2) Polymorphic ventricular tachycardia: Status: Acute (3) Prolonged QT interval: Status: Acute (4) NSVT (nonsustained ventricular tachycardia): Status: Acute (5) Seizure: Status: Acute (6) Substance abuse: Status: Acute (7) MRSA (methicillin resistant staph aureus) culture positive: Status: Acute (8) Opiate abuse, continuous: Status: Acute (9) Opiate withdrawal: Status: Acute DS: Summary Hospital Course Hospital Course: Admission note HPI A 38 years old lady with PMH of Bipolar disease, IVDU who presents to ED with feeling unwell with a positive blood culture from 11/01 growing MRSA. The patient reports feeling unwell recently. At time of interveiw she had a wittnessed seizure while in ED and given Midazolam she was not able to participate much as she was sedated and sleepy. CT head pending. repeat blood labs showiung mild hyponatremia. UTox positive for Opiates, Fentanyl , Benzo and Cocaine. In ED she was started on Vancomycin and Cefepime. Admitted for further evaluation and treatment. Hospital course - NSVT with prolonged QTc Noticed during admission with one incident of Torsades for 12 beats. treated with Potassium and Mg replacement to keep it >4 & >2 with improvement in QTc. restarted Methadone small dose and Zyprexa while monitoring on Tele as no recurrent events of NSVT noticed. Seen by Cardiology. Left AMA. - MRSA Bacteremia likely 2/2 skin infection and IVDU repeat blood cultures negative as she was started on IV Vancomycin pending ID evaluation and ECHO. LEft without finishing treatment. Had only 1 set on 11/01 growing MRSA which could also be contaminent from her skin as no other culture grew it even the one drawn before any antibiotics. - NEw onset seizure Witnessed in ED, likely related to drugs withdrawal with negative head CT . Seen by NEurology consult, no need of anti-epileptic at this point. - Hx substance abuse on MEthadone restart Methadone small dose along with Oxycodone and Ativan PRN for withdrawal symptoms as she was seen by addiction team. - Bipolar disease with increase agitation Held Atarax and Seroquel for prolonged QTc. Continued Zyprexa with pending Psych eval for medication advice. Discharge plan The patient refused to stay in the hospital and decided to leave AMA. I explained to her that with leaving and not finishing treatment she is at risk of worsening infection, and recurrent seizures. she understood the risks and signed AMA to leave. Time Attestation Discharge Coordination Time (in mins): 38 Quality: Safe Use of Opioids Does Pt have an Active Cancer Diagnosis on the Problem List?: No Quality: Stroke Does the patient have a stroke diagnosis?: No Physical Exam Vital Signs: Vital Signs: Last Vital Signs Temp 97.8 F 11/10/23 08:00 Pulse 83 11/10/23 08:00 Resp 18 11/10/23 08:00 BP 155/95 H 11/10/23 08:00 Pulse Ox 98 11/10/23 08:00 O2 Del Method Room Air 11/10/23 08:00 BMI result Body Mass Index 24.3 Const: Other: AMA DS: Data Data Completed and Pending Completed studies during hospitalization [Text1]: Procedures Detoxification Services for Substance Abuse Treatment (10/05/20) Labs on day of discharge: Laboratory Results - last 24 hr 11/09/23 11/10/23 11/10/23 19:00 08:30 08:30 WBC 8.4 RBC 4.06 L Hgb 10.7 L Hct 34.9 L MCV 86.0 MCH 26.4 L MCHC 30.7 L RDW 16.3 H Plt Count 353 MPV 9.3 L Absolute Nucleated RBC 0.000 Nucleated RBC % (auto) 0.0 Sodium 137 Potassium 4.1 Chloride 111 H Carbon Dioxide 18 L Anion Gap 12 BUN 19 H Creatinine 0.80 0.77 Estim Creat Clear Calc 83.1 Estimated GFR Random Glucose Calcium Random Vancomycin 11.6 L 11/10/23 11/10/23 08:30 08:30 WBC RBC Hgb Hct MCV MCH MCHC RDW Plt Count MPV Absolute Nucleated RBC Nucleated RBC % (auto) Sodium Potassium Chloride Carbon Dioxide Anion Gap BUN Creatinine Estim Creat Clear Calc 86.4 Estimated GFR > 60 > 60 Random Glucose 111 Calcium 9.3 Random Vancomycin Preliminary micro results at discharge 11/08/23 07:52 Blood Culture - Preliminary Blood - Venous No growth after 48 hours. 11/07/23 13:28 Blood Culture - Preliminary Blood - Venous No growth after 48 hours. 11/08/23 08:29 Blood Culture - Preliminary Blood - Venous No growth after 24 hours. Imaging Chest x-ray: Radiologist's impression: ITS Impressions Head/Neck CTA 11/07/23 15:39 IMPRESSION: CT HEAD: No acute intracranial hemorrhage or territorial loss of ortiz-white differentiation. CTA NECK: No hemodynamically significant stenosis. CTA HEAD: No proximal vessel occlusion or high-grade stenosis. Discharge Plan Discharge Patient Disposition: Left Against Medical Advice Discharge Diagnosis: Bacteremia Opioid withdrawal Referrals: Physician,Unknown J [Primary Care Provider] - 1 Week Discharge Medications: No Action nicotine (polacrilex) 4 mg gum 4 mg PO QID PRN (Reason: Nicotine Cravings) methadone [Methadose] 10 mg/mL Concentrate 190 mg PO DAILY Patient Comments: Verfieid by clint from [facility] center for [facility]. Phone number [phone] quetiapine [Seroquel] 200 mg Tablet 200 mg PO BEDTIME olanzapine [Zyprexa] 5 mg Tablet 5 mg PO BID hydroxyzine HCl [Atarax] 50 mg Tablet 50 mg PO BID propranolol 10 mg Tablet 10 mg PO BID gabapentin 800 mg Tablet 800 mg PO TID nicotine 21 mg/24 hr patch 24 hour 1 patch topical DAILY ibuprofen 600 mg tablet 600 mg PO BID PRN (Reason: Pain) Discharge Orders: Discharge Order (Routine); Ordered 11/10/23 Ordered By: Konstantin Cordon Print Language: Chinese Care Plan Goals: AMA Health Concerns: . Plan of Treatment: . Assessment: .
--- NOTE | 2023-11-10 10:24 | MHC.CM.PN ---
pt left today AMA
== END 2023-11-10 09:08 | disposition left against medical advice (07) | DRG 770 ==
LOC: HO.ED 12:12 → HO.EDOVER 13:26 → HO.IMC 15:57
PROVIDERS: Physician Assistant Medical; Admitting Provider Student in an Organized Health Care Education/Training Program; Emergency Provider Emergency Medicine; Visit Provider Student in an Organized Health Care Education/Training Program
DX: F11.23 Opioid dependence with withdrawal (principal); R78.81 Bacteremia; R56.9 Unspecified convulsions; I47.21 Torsades de pointes; F19.10 Other psychoactive substance abuse, uncomplicated; F31.9 Bipolar disorder, unspecified; F43.10 Post-traumatic stress disorder, unspecified; R94.31 Abnormal electrocardiogram [ECG] [EKG]; B95.62 Methicillin resistant Staphylococcus aureus infection as the cause of diseases classified elsewhere; Z79.899 Other long term (current) drug therapy
CPT/HCPCS: 36415; 70496; 70498; 80048; 80053; 80202; 80307; 81001; 81003; 82565; 83605; 83735; 84702; 85025; 85027; 87040; 93005; 99285; J0692; J1200; J1650; J1885; J1953; J2060; J2250; J2270; J2405; J3371; J3475; J3480; Q9967

== ENCOUNTER → 2023-11-07 12:11 | Outpatient (BNV) | payer MEDICAID, SELFPAY | PROVIDERS: Emergency Provider Emergency Medicine; Visit Provider Student in an Organized Health Care Education/Training Program | DX: R56.9 Unspecified convulsions (principal); F19.10 Other psychoactive substance abuse, uncomplicated; Z22.322 Carrier or suspected carrier of Methicillin resistant Staphylococcus aureus; I47.29 Other ventricular tachycardia; F11.20 Opioid dependence, uncomplicated; R94.31 Abnormal electrocardiogram [ECG] [EKG]; F11.10 Opioid abuse, uncomplicated; F11.23 Opioid dependence with withdrawal | CPT/HCPCS: 99223; 99233; 99239 ==

== ENCOUNTER 2023-11-07 12:46 | Outpatient (BNV) | payer MEDICAID, SELFPAY | END 2023-11-09 08:05 | PROVIDERS: Admitting Provider Student in an Organized Health Care Education/Training Program; Emergency Provider Emergency Medicine; Visit Provider Internal Medicine | DX: R94.31 Abnormal electrocardiogram [ECG] [EKG] (principal) | CPT/HCPCS: 93010 ==

== ENCOUNTER 2023-11-07 12:46 | Outpatient (BNV) | payer MEDICAID, SELFPAY | END 2023-11-08 05:00 | PROVIDERS: Admitting Provider Student in an Organized Health Care Education/Training Program; Emergency Provider Emergency Medicine; Visit Provider Internal Medicine Cardiovascular Disease | DX: R94.31 Abnormal electrocardiogram [ECG] [EKG] (principal) | CPT/HCPCS: 93010 ==

== ENCOUNTER → 2023-11-07 12:46 | Outpatient (BNV) | payer MEDICAID, SELFPAY | PROVIDERS: Admitting Provider Student in an Organized Health Care Education/Training Program; Emergency Provider Emergency Medicine; Visit Provider Psychiatry & Neurology Neurology | DX: R56.9 Unspecified convulsions (principal) | CPT/HCPCS: 99222 ==

== ENCOUNTER → 2023-11-07 12:46 | Outpatient (BNV) | payer MEDICAID, SELFPAY | PROVIDERS: Admitting Provider Student in an Organized Health Care Education/Training Program; Emergency Provider Emergency Medicine; Visit Provider Internal Medicine Cardiovascular Disease | DX: I49.9 Cardiac arrhythmia, unspecified (principal) | CPT/HCPCS: 93010 ==

== ENCOUNTER → 2023-11-07 12:46 | Outpatient (BNV) | payer MEDICAID, SELFPAY | PROVIDERS: Admitting Provider Student in an Organized Health Care Education/Training Program; Emergency Provider Emergency Medicine; Visit Provider Nurse Practitioner Psychiatric/Mental Health | DX: F11.20 Opioid dependence, uncomplicated (principal) | CPT/HCPCS: 99232 ==

== ENCOUNTER → 2023-11-07 12:46 | Outpatient (BNV) | payer MEDICAID, SELFPAY | PROVIDERS: Admitting Provider Student in an Organized Health Care Education/Training Program; Emergency Provider Emergency Medicine; Visit Provider Internal Medicine Cardiovascular Disease | DX: R94.31 Abnormal electrocardiogram [ECG] [EKG] (principal); I47.29 Other ventricular tachycardia; F19.10 Other psychoactive substance abuse, uncomplicated | CPT/HCPCS: 99222; 99233 ==

== ENCOUNTER 2023-11-11 16:17 | Inpatient (IN) | payer OTHER, SELFPAY ==
[2023-11-11 16:27] VITALS: BP 100/62; BP 107/65; PULSE 79; PULSE 80; RESP 16; TEMP 36.7; O2SAT 100; BMI 23.4
[2023-11-11 16:36] VITALS: RESP 16
--- NOTE | 2023-11-11 16:47 | PC.NURSE ---
Pt alert and oriented. Reports leaving AMA ?yesterday while being treated for MRSA d/t what pt report sas under dosed on Methadone. Pt states last heroin use yesterday and last crack use 30min [employer]INTENA[employer] Pt also reports heroin withdrawal with body pain and b/l lower leg pain. Returns for continuation of treatment and withdrawal sx. 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
[2023-11-11] MEDS: methADONE HCl 20 MG/2 ML ORAL.CONC 40 MG PO (18:12)
[2023-11-11] MEDS: Acetaminophen 325 MG TABLET 975 MG PO (18:12)
--- NOTE | 2023-11-11 18:37 | ED.GENADULT ---
HPI - General Adult General Chief complaint: General Medical Stated complaint: full body aches, withdrawing from heroine Time Seen by Provider: 11/11/23 17:33 Source: patient, RN notes reviewed and old records reviewed Mode of arrival: EMS Limitations: no limitations History of Present Illness ED Provider: Lidia HPI narrative: 38-year-old female with past medical history significant for polysubstance abuse, MRSA bacteremia, mood disorder, bipolar disorder, presents for evaluation of ?feet pain. ? Patient left against medical advice yesterday. She was admitted due to polysubstance abuse, 1 positive blood culture on 11/01 growing MRSA, a witnessed seizure in the ER She was being treated with vancomycin and left pending Infectious Disease consult, psychiatry consult, and echocardiogram. Patient felt as if she was being underdosed on her methadone and she left AMA to go continue using substances She reports using IV cocaine about 30 minutes prior to arrival She complains of feeling cold but denies any fevers Patient also states ?my partner tested positive for gonorrhea they want the shot in my ass. ? She states that she is having pelvic pain, vaginal discharge and ?I just want to be treated. ? Related Data Home Medications ?Medication ?Instructions ?Recorded ?Confirmed methadone 10 mg/mL oral 190 mg PO DAILY 08/09/23 11/07/23 concentrate (Methadose) nicotine (polacrilex) 4 mg gum 4 mg PO QID PRN Nicotine Cravings 08/12/23 11/07/23 gabapentin 800 mg tablet 800 mg PO TID 11/03/23 11/07/23 hydroxyzine HCl 50 mg tablet 50 mg PO BID 11/03/23 11/07/23 olanzapine 5 mg tablet (Zyprexa) 5 mg PO BID 11/03/23 11/07/23 propranolol 10 mg tablet 10 mg PO BID 11/03/23 11/07/23 quetiapine 200 mg tablet (Seroquel) 200 mg PO BEDTIME 11/03/23 11/07/23 ibuprofen 600 mg tablet 600 mg PO BID PRN Pain 11/07/23 11/07/23 nicotine 21 mg/24 hr daily 1 patch topical DAILY 11/07/23 11/07/23 transdermal patch Allergies Allergy/AdvReac Type Severity Reaction Status Date / Time No Known Allergies Allergy Verified 11/11/23 16:35 [No Known Allergies*] Review of Systems Constitutional: Constitutional: Reports body ache(s), Reports chills, Denies fever(s) and Denies headache(s) Eyes: Eyes: Denies blurry vision and Denies exophthalmos ENT: Denies vertigo, Denies dizziness and Denies headache(s) Cardiovascular: Cardiovascular: Denies chest pain and Denies dyspnea Respiratory: Respiratory: Denies cough and Denies dyspnea Gastrointestinal: Gastrointestinal: Denies abdominal pain, Denies nausea and Denies vomiting Genitourinary: Genitourinary: Reports pelvic pain and Reports vaginal discharge Musculoskeletal: Musculoskeletal: Denies back pain Integumentary/Breasts: Skin/Breast: Reports wounds Neurologic: Denies vertigo, Denies dizziness and Denies headache(s) Psychiatric: Psychiatric: Denies anxiety and Denies suicidal ideation [facility] Past Medical History Medical History (Updated 11/11/23 @ 00:04 by Background Daemon) Opioid use disorder, moderate, dependence Polysubstance abuse Cocaine use disorder History of drug dependence/abuse Atypical bipolar disorder Opiate withdrawal Acute anxiety Drug-induced psychotic disorder Depression PTSD (post-traumatic stress disorder) Anxiety Depression Social History Social History Household Members: Unknown / Unable to assess Household Members Other:: grandmother, uncle Housing: Homeless 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: current 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 frequency: 0-2 drinks per day Alcohol type: beer, wine and hard liquor 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 Patient Tobacco Use Status: Tobacco use Unknown Tobacco use type: Cigarette Cigarette Packs Per Day: 1.5 Cigarettes Per Day: 30.0 Years Smoked: 26 Smoked in Last 30 Days: Yes e-Cigarette/Vaping Use: Never Used Second Hand Smoke Exposure: Yes Use of substances other than those prescribed or required for medical reasons: Yes Substance Use Type: Crack/Cocaine and Heroin Substance Use Frequency: Daily Last Used Substance: Just Prior to Admission Advance Directives: No Advance Directives Information Provided: No Patient : No (unk LMP but denies chance of ) service: No Current occupational status: unemployed Sexual orientation: Don't Know Physical Exam ED Vital Signs: Vital Signs - 24 hr 11/11/23 16:27 11/11/23 16:36 Temperature 98.0 F Pulse Rate 80 Respiratory Rate 16 16 Blood Pressure 100/62 Pulse Oximetry 100 Oxygen Delivery Method Room Air BMI result Body Mass Index 23.4 Const General: comfortable, no acute distress, alert and awake Nutritional Appearance: well nourished Orientation/consciousness: patient oriented x3 HENMT Head: Yes normocephalic and Yes atraumatic Eyes Eyelids: Yes eyelids normal Conjunctivae: conjunctivae normal Sclerae: sclerae normal Corneas: corneas normal Pupils: Equal, round and reactive pupils present EOM: EOMs intact bilaterally Neck Neck: Yes full ROM Resp Effort & Inspection: normal respiratory effort, able to speak in complete sentences and not labored Cardio Rate: regular rate Rhythm: regular rhythm GI Inspection: No distended Palpation (GI): Soft to palpation, not firm, nontender, no guarding and not rigid Skin General skin exam: elasticity normal Neuro General: patient oriented x3 Cranial nerves: Yes Equal, round and reactive pupils present and Yes Bilaterally intact EOM present Cognition (Neuro): normal cognition Extrem Other: Moving all extremities well without any obvious deformities Medications Administered Discontinued Medications Generic Name Dose Route Start Last Admin Trade Name Freq PRN Reason Stop Dose Admin Acetaminophen 975 mg 11/11/23 17:50 11/11/23 18:12 Acetaminophen 325 Mg Tablet PO 11/11/23 17:51 975 mg ONCE ONE Administration Lorazepam 2 mg 11/11/23 19:46 11/11/23 19:51 Lorazepam 2 Mg/Ml Vial IM 11/11/23 19:47 2 mg STAT STA Administration Methadone HCl 40 mg 11/11/23 17:49 11/11/23 18:12 Methadone Hcl 20 Mg/2 Ml Oral.Conc PO 11/11/23 17:50 40 mg ONCE ONE Administration Procedures Procedure Narrative Procedure Narrative: The patient is a very difficult stick, I was asked to assist with IV access. I was able to place a peripheral IV in the left upper arm, 18 gauge, 2.5 in catheter. There was good blood return in the line flushed well postprocedure Medical Decision Making Medical Decision Making MDM Narrative: 38-year-old female presents for evaluation of multiple complaints. This patient is historically complex with frequent AMA, noncompliance and active IV drug abuse. Given the patient left AMA yesterday before receiving infectious Disease consult, echocardiogram, and psychiatry consult the patient will likely require admission to complete her previous workup. Currently her vital signs are stable. She is afebrile, she is not tachycardic and her blood pressure is stable at 1 100/62. The patient is continuing to request ?the injection for gonorrhea. ? She was refusing a pelvic examination and thus far refusing a urine sample. I explained to the patient that we can not give her any antibiotics until she has had blood cultures drawn given the recent positive blood culture and at least a urine sample that we may send off for gonorrhea testing. The patient was restarted on methadone at 40 mg daily, she had previously been and 190 mg daily in August, however I will restart her on the 40 which she received yesterday Differential Diagnosis Differential Diagnoses: The differential diagnosis associated with the presentation includes Medication noncompliance bipolar disorder IV drug abuse Bacteremia Endocarditis Lab Data 11/11/23 20:15 11/11/23 20:15 Discharge Plan Discharge Clinical Impression: Intravenous drug abuse Patient Disposition: Admitted As Inpatient Prescriptions: No Action nicotine (polacrilex) 4 mg gum 4 mg PO QID PRN (Reason: Nicotine Cravings) methadone [Methadose] 10 mg/mL Concentrate 190 mg PO DAILY Patient Comments: Verfieid by clint from [facility] center for [facility]. Phone number [phone] quetiapine [Seroquel] 200 mg Tablet 200 mg PO BEDTIME olanzapine [Zyprexa] 5 mg Tablet 5 mg PO BID hydroxyzine HCl [Atarax] 50 mg Tablet 50 mg PO BID propranolol 10 mg Tablet 10 mg PO BID gabapentin 800 mg Tablet 800 mg PO TID nicotine 21 mg/24 hr patch 24 hour 1 patch topical DAILY ibuprofen 600 mg tablet 600 mg PO BID PRN (Reason: Pain) Print Language: Burkinan
--- NOTE | 2023-11-11 18:49 | PC.NURSE ---
Pt given crackers and soda. Attempted to obtain blood ordered however pt being very difficult about where we can stick her, also demanding food prior to attempting to obtain blood. Pt yelling, redirectble for short time but then yelling again.
--- NOTE | 2023-11-11 19:15 | PC.NURSE ---
this rn assumed care of pt, pt being rude to staff at this time, refusing to let this rn and tech attempt iv or lab draws. alireza moralez aware.
[2023-11-11] MEDS: LORazepam 2 MG/ML VIAL IM (19:51)
--- NOTE | 2023-11-11 19:52 | PC.NURSE ---
pt allowing for IV at this time, pt reports anxiety for needles, requesting IM ativan. pt medicated per may.
--- NOTE | 2023-11-11 20:18 | PC.NURSE ---
Tan NICHOLSON at bedside placing ultrasound guided IV, pt tolerated well. 18G placed in left upper arm, wrapped in gauze for comfort. labs obtained and sent.
[2023-11-11 20:21] LABS: MANUAL DIFF FLAG NO
[2023-11-11 20:23] LABS: Basophils Percent Auto 0.4 % (0-2); Eosinophils Absolute Auto 0.4 X10*3/uL (0.0-0.4); Eosinophils Percent Auto 4.9 % (0-4); Hematocrit 30.8 % (37.0-47.0); Imm Gran Abs Auto 0.02 X10*3/uL (0.00-0.03); Imm Gran Pct Auto 0.2 % (0.0-0.4); Lymphocytes Absolute Auto 3.4 X10*3/uL (1.2-4.9); Lymphocytes Percent Auto 37.8 % (20-40); Mean Corpuscular HGB Conc 32.5 g/dl (31.0-35.0); Mean Corpuscular Volume 83.2 fL (80.0-98.0); Mean Platelet Volume 8.7 fL (9.4-12.3); Monocytes Absolute Auto 0.5 X10*3/uL (0.1-1.2); Monocytes Percent Auto 5.1 % (2-11); Neutrophils Absolute Auto 4.7 x10*3/uL (2.0-8.3); Neutrophils Percent Auto 51.6 % (45-73); Platelet Count 349 X10*3/uL (160-400); Red Cell Distribution Width 16.4 % (11.0-16.0)
[2023-11-11] MEDS: cefTRIAXone sodium 1 GM, Lidocaine HCl 1 % MPF 2.1 ML IM (20:36)
[2023-11-11 20:38] LABS: Lactic Acid 0.9 mmol/L (0.5-2.0)
[2023-11-11] MEDS: vancomycin HCL 1,500 MG in 0.9 % Sodium Chloride 500 ML 333.33 MG IV (20:45)
[2023-11-11 20:49] LABS: Alanine Aminotransferase 29 U/L (0-31); Alkaline Phosphatase 72 U/L (39-117); Anion Gap 11 (12-20); Aspartate Amino Transferase 37 U/L (5-31); Bilirubin Total 0.5 mg/dL (0.0-1.0); Blood Urea Nitrogen 23 mg/dL (9-16); Calcium 9.3 mg/dL (8.4-10.2); Carbon Dioxide 26 mmol/L (22-29); Chloride 103 mmol/L (96-108); Estimated Glomerular Filt Rate > 60; Glucose Random 143 mg/dL (60-115); Lipase 29 U/L (8-78); Potassium 3.4 mmol/L (3.3-5.1); Sodium 137 mmol/L (135-145); Total Protein 7.2 g/dL (6.5-8.0)
[2023-11-11 20:50] LABS: HCG Quantitative < 2 mIU/mL
[2023-11-11 21:33] VITALS: O2SAT 95
--- NOTE | 2023-11-11 22:54 | P.HPHOSP_ITS ---
History of Present Illness Date of Service: 11/11/23 Chief Complaint: Not feeling well This is a 38-year-old female with pertinent history of IV drug use disorder, bipolar disorder presents to the emergency department for feeling unwell. Of note, patient was recently admitted on 11/06 for blood culture (11/01) growing MRSA. Patient was found to have prolonged QTC and polymorphic ventricular tachycardia during hospitalization. Patient was seen by Cardiology but left against medical advice before being seen by infectious disease or before an echocardiogram could be obtained. Patient left hospital on 11/09 without completing treatment for MRSA bacteremia. Patient is drowsy at the time of my evaluation but awakens to verbal stimulus. States she left the hospital to continue using IV cocaine. Complains of generalized malaise. Also mentioned to ER provider that her partner tested positive for gonorrhea. Unable to obtain review of systems. Review of Systems 2 Review of Systems: Yes Unobtainable due to mental status PMFSH Medical History Opioid use disorder, moderate, dependence Polysubstance abuse Cocaine use disorder History of drug dependence/abuse Atypical bipolar disorder Opiate withdrawal Acute anxiety Drug-induced psychotic disorder Depression PTSD (post-traumatic stress disorder) Anxiety Depression Social History Household Members: Unknown / Unable to assess Household Members Other:: grandmother, uncle Housing: Homeless 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: current 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 frequency: 0-2 drinks per day Alcohol type: beer, wine and hard liquor 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 Patient Tobacco Use Status: Tobacco use Unknown Tobacco use type: Cigarette Cigarette Packs Per Day: 1.5 Cigarettes Per Day: 30.0 Years Smoked: 26 Smoked in Last 30 Days: Yes e-Cigarette/Vaping Use: Never Used Second Hand Smoke Exposure: Yes Use of substances other than those prescribed or required for medical reasons: Yes Substance Use Type: Crack/Cocaine and Heroin Substance Use Frequency: Daily Last Used Substance: Just Prior to Admission Advance Directives: No Advance Directives Information Provided: No Patient : No (unk LMP but denies chance of ) service: No Current occupational status: unemployed Sexual orientation: Don't Know Meds Allergies Allergy/AdvReac Type Severity Reaction Status Date / Time No Known Allergies Allergy Verified 11/11/23 16:35 [No Known Allergies*] Home Medications ?Medication ?Instructions ?Recorded ?Confirmed ?Last Taken ?Type methadone 10 mg/mL oral 190 mg PO DAILY 08/09/23 11/07/23 10/31/23 09:00 History concentrate (Methadose) nicotine (polacrilex) 4 mg gum 4 mg PO QID PRN Nicotine Cravings 08/12/23 11/07/23 Unknown History gabapentin 800 mg tablet 800 mg PO TID 11/03/23 11/07/23 1 Week Ago History ~10/31/23 hydroxyzine HCl 50 mg tablet 50 mg PO BID 11/03/23 11/07/23 1 Week Ago History ~10/31/23 olanzapine 5 mg tablet (Zyprexa) 5 mg PO BID 11/03/23 11/07/23 1 Week Ago History ~10/31/23 propranolol 10 mg tablet 10 mg PO BID 11/03/23 11/07/23 1 Week Ago History ~10/31/23 quetiapine 200 mg tablet (Seroquel) 200 mg PO BEDTIME 11/03/23 11/07/23 1 Week Ago History ~10/31/23 ibuprofen 600 mg tablet 600 mg PO BID PRN Pain 11/07/23 11/07/23 Unknown History nicotine 21 mg/24 hr daily 1 patch topical DAILY 11/07/23 11/07/23 1 Week Ago History transdermal patch ~10/31/23 Physical Exam 2 Vital Signs and Narrative: Vital Signs: Last Vital Signs Temp 98.0 F 11/11/23 16:27 Pulse 80 11/11/23 16:27 Resp 16 11/11/23 16:36 BP 100/62 11/11/23 16:27 Pulse Ox 95 11/11/23 21:33 O2 Del Method Room Air 11/11/23 21:33 BMI result Body Mass Index 23.4 Middle-aged female lying in bed in no distress Neck supple, no JVD Regular rate and rhythm, S1-S2 heard Regular breath sounds bilaterally, no wheezing or crackles appreciated Abdomen soft nontender, no guarding, no rigidity Patient is lethargic and falls asleep mid conversation, awakens to verbal stimulus Psych: Drowsy Bilateral track nieves seen Results Labs 11/11/23 20:15 11/11/23 20:15 Labs: Laboratory Results - last 24 hr 11/11/23 20:15 MCV 83.2 MCH 27.0 MCHC 32.5 RDW 16.4 H Plt Count 349 MPV 8.7 L Immature Gran % (Auto) 0.2 Neut % (Auto) 51.6 Lymph % (Auto) 37.8 [place] % (Auto) 5.1 Eos % (Auto) 4.9 H Baso % (Auto) 0.4 Lymph # (Auto) 3.4 Jerauld # (Auto) 0.5 Eos # (Auto) 0.4 Baso # (Auto) 0.0 Abs Immat Gran (auto) 0.02 Absolute Neuts (auto) 4.7 Absolute Nucleated RBC 0.000 Nucleated RBC % (auto) 0.0 Anion Gap 11 L Estim Creat Clear Calc 70.0 Estimated GFR > 60 Random Glucose 143 H Lactic Acid 0.9 Calcium 9.3 Total Bilirubin 0.5 AST 37 H ALT 29 Alkaline Phosphatase 72 Total Protein 7.2 Albumin 4.0 Lipase 29 Beta HCG, Quant < 2 Assessment and Plan (1) MRSA (methicillin resistant staph aureus) culture positive: Status: Acute (2) Intravenous drug abuse: Status: Acute Plan This is a 38-year-old female with pertinent history of IV drug use disorder, bipolar disorder presents to the emergency department for feeling unwell. Of note, patient was recently admitted on 11/06 for blood culture (11/01) growing MRSA. #. MRSA bacteremia in a patient with IV drug use disorder: Continue IV vancomycin. Consulting Infectious Disease and obtaining transthoracic echocardiogram. Repeat blood cultures pending #. Acute toxic encephalopathy due to drug use. Monitor mentation #. IV polysubstance use disorder: Consulted Addiction Team. Monitor for withdrawal #. Bipolar disorder: Hold Seroquel for prolonged QTC. Repeat EKG. Consulting Psychiatry for medication optimization #. Partner with gonorrhea+: Received IM ceftriaxone in the ER #. Normocytic anemia, chronic Med rec pending DVT prophylaxis: Lovenox Full code Admit as inpatient and will require two night minimum hospital stay for IV antibiotics (as above), which is not possible in a lesser acute setting. Specialist consult pending Quality Stroke Does the patient have a stroke diagnosis?: No VTE Prior VTE?: No VTE Risk Level:: Medical - moderate - high VTE Device Contraindication: Treatment Not Indicated VTE Drug Contraindication: N/A - Med Ordered
--- NOTE | 2023-11-11 23:27 | MHC.EDTECH ---
EKG ordered - due in the morning (8am) by Dr Johnson
--- NOTE | 2023-11-12 | ECG_ITS ---
Test Reason : check QT Blood Pressure : / mmHG Vent. Rate : 079 BPM Atrial Rate : 079 BPM P-R Int : 128 ms QRS Dur : 086 ms QT Int : 436 ms P-R-T Axes : 043 -29 026 degrees QTc Int : 499 ms Normal sinus rhythm Nonspecific T wave abnormality Prolonged QT Abnormal ECG When compared with ECG of 09-NOV-2023 08:05, Nonspecific T wave abnormality now evident in Anterior leads Referred By: Viktoriya Johnson Electronically Signed By:COSME DOYLE
[2023-11-12] MEDS: 0.9 % Sodium Chloride Flush 3 ML SYRINGE IVFLUSH ×3 (00:24→17:48)
[2023-11-12] MEDS: OLANZapine 5 MG TABLET PO ×2 (01:32→10:43)
[2023-11-12] MEDS: LORazepam 2 MG/ML VIAL IVPUSH (01:32)
[2023-11-12] MEDS: Enoxaparin Sodium 40 MG/0.4 ML SYRINGE SUBCUT (01:32)
[2023-11-12] MEDS: Gabapentin 400 MG CAPSULE 800 MG PO ×4 (01:32→19:57)
[2023-11-12] MEDS: Morphine Sulfate Immed Release 15 MG TABLET 30 MG PO (03:17)
[2023-11-12] MEDS: diazePAM 10 MG/2 ML CARTRIDGE 5 MG IVPUSH (03:17)
--- NOTE | 2023-11-12 03:33 | PC.NURSE ---
Pt has been yelling out to staff with inappropriate language, other pt are waking up asking for ear plugs, pt have been moved away from her. When all attempts to help the pt failed security call to the bedside to inform pt that [facility] has a no tolerance policy pt did not care. Hospitalist Dr Johnson has been called and orders received for pain medication. Waiting for pharmacy to verify and then administered and a cup of tea brought to the pt. pt refused a ice pack.
--- NOTE | 2023-11-12 03:49 | PC.NURSE ---
pt severely agitated at this time, screaming and swearing at staff, pt reporting 10/10 bilateral feet pain, aware.
--- NOTE | 2023-11-12 03:53 | PC.NURSE ---
pt refusing vital signs at this time.
[2023-11-12 04:33] VITALS: PULSE 81; RESP 15
--- NOTE | 2023-11-12 05:01 | PC.NURSE ---
pt allowed to sleep at this time, respirations even and unlabored, no acute distress noted.
[2023-11-12 06:41] VITALS: BP 137/78; PULSE 71; RESP 14; TEMP 36.5; O2SAT 98
--- NOTE | 2023-11-12 07:16 | PHA.MEDREC ---
Pharmacy Consult ? Medication Reconciliation Pharmacy has completed the medication reconciliation. Utilized discharge packet from 11/10/23.
[2023-11-12 07:35] LABS: Hematocrit 32.2 % (37.0-47.0); Hemoglobin 10.3 g/dl (12.0-16.0); Mean Corpuscular Hemoglobin 26.8 pg (27.0-33.0); Mean Corpuscular Volume 83.9 fL (80.0-98.0); Mean Platelet Volume 8.8 fL (9.4-12.3); Platelet Count 326 X10*3/uL (160-400); Red Blood Count 3.84 X10*6/uL (4.20-5.50); Red Cell Distribution Width 16.4 % (11.0-16.0); White Blood Count 7.3 X10*3/uL (4.8-10.8)
[2023-11-12 07:47] LABS: Anion Gap 9 (12-20); Blood Urea Nitrogen 18 mg/dL (9-16); Calcium 8.5 mg/dL (8.4-10.2); Carbon Dioxide 26 mmol/L (22-29); Chloride 108 mmol/L (96-108); Creatinine Clr Calc Pharmacy 76.8; Estimated Glomerular Filt Rate > 60; Glucose Random 115 mg/dL (60-115); Sodium 139 mmol/L (135-145)
--- NOTE | 2023-11-12 07:49 | PHA.PROG ---
Admission Date/Time: November 11, 2023 22:53 Indication: BACTEREMIA Weight in k.431 kg Adjusted body weight in Kg: [place] body weight in Kg: Obesity Dosing Indication % IBW: Serum Creatinine - Last 168 Hours 11/11/23 11/12/23 20:15 07:26 Creatinine 0.79 0.72 Estimated CrCl and GFR - Last 168 Hours 11/11/23 11/12/23 20:15 07:26 Estim Creat Clear Calc 70.0 76.8 Estimated GFR > 60 > 60 Vancomycin Loading Dose: 1500 MG Current Vancomycin Dosing Regimen: 1000 MG Q12H Vancomycin Monitoring using AUC goal of 400 - 600 range with trough as surrogate marker: [id number] [id number] Date and Time for next Vancomycin Level to be drawn: 11/13/2023 @0600 Pharmacist Comments on Vancomycin Plan: Vancomycin dosing will take advantage of [employer] as a clinical decision support tool that uses Bayesian modeling to calculate individual patient's pharmacokinetic parameters and forecast the patient's drug concentration time course with the target goal AUC 24 range of 400 - 600 mg/L/hr.
[2023-11-12 08:00] VITALS: BP 120/82; PULSE 76; RESP 19; TEMP 36.7; O2SAT 99
--- NOTE | 2023-11-12 08:35 | MHC.CM.PN ---
Patient left AMA 2 days ago, prior to completing IV ABT. 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 DC plan is TBD/? [facility]. CM has initiated and will follow for dc planning. PCP is from [facility] and HCP on file names Ayad as the Agent. Patient lives with her Grandmother and she is functionally independent.
[2023-11-12] MEDS: HYDROmorphone HCl 1 MG/ML SYRINGE IVPUSH (10:35)
[2023-11-12] MEDS: hydrOXYzine HCL 50 MG TABLET PO ×2 (10:43→19:57)
[2023-11-12] MEDS: vancomycin HCL 1,000 MG in 0.9 % Sodium Chloride 250 ML 270 MG IV ×2 (10:43→19:56)
[2023-11-12] MEDS: Propranolol HCL 10 MG TABLET PO ×2 (10:43→19:57)
--- NOTE | 2023-11-12 11:16 | P.PNIM_ITS ---
Subjective Subjective Date of Service: 11/12/23 Interval History: sleeping comfortably Physical Exam 2 Vital Signs: Vital Signs: Last Vital Signs Temp 98.0 F 11/12/23 08:00 Pulse 76 11/12/23 08:00 Resp 19 11/12/23 08:00 BP 120/82 11/12/23 08:00 Pulse Ox 99 11/12/23 08:00 O2 Del Method Room Air 11/12/23 08:00 BMI result Body Mass Index 23.4 no acute distress lungs clear s1, s2, rrr Objective Data Active Medications Acetaminophen (Acetaminophen 325 Mg Tablet) 650 mg PO Q6H PRN PRN Reason: Pain, Mild (Pain Scale 1-3), fever or headache Calcium Carbonate (Calcium Carbonate 750 Mg Tab.Chew) 750 mg PO Q4H PRN PRN Reason: Heartburn Enoxaparin Sodium (Enoxaparin Sodium 40 Mg/0.4 Ml Syringe) 40 mg SUBCUT Q24H [facility] Last Admin: 11/12/23 01:32 Dose: 40 mg Documented By: JUNIE Gabapentin (Gabapentin 400 Mg Capsule) 800 mg PO TID [facility] Last Admin: 11/12/23 10:42 Dose: 800 mg Documented By: MACEY Hydromorphone HCl (Hydromorphone Hcl 1 Mg/Ml Syringe) 1 mg IVPUSH Q4H PRN; Protocol PRN Reason: Pain, Severe (Pain Scale 7-10) Hydroxyzine HCl (Hydroxyzine Hcl 50 Mg Tablet) 50 mg PO BID [facility] Last Admin: 11/12/23 10:43 Dose: 50 mg Documented By: MACEY Vancomycin HCl 1,000 mg/ (Sodium Chloride) 270 mls @ 270 mls/hr IV Q12H [facility] Last Admin: 11/12/23 10:43 Dose: 270 mls/hr Documented By: MACEY Magnesium Hydroxide (Milk Of Magnesia 30 Ml Oral.Susp) 30 ml PO DAILY PRN PRN Reason: Constipation Melatonin (Melatonin 3 Mg Tablet) 6 mg PO BEDTIME PRN PRN Reason: Insomnia Olanzapine (Olanzapine 5 Mg Tablet) 5 mg PO BID [facility] Last Admin: 11/12/23 10:43 Dose: 5 mg Documented By: MACEY Ondansetron HCl (Ondansetron Hcl 4 Mg/2 Ml Vial) 4 mg IVPUSH Q8H PRN PRN Reason: Nausea and Vomiting Pharmacy Consult (Consult Rx Vancomycin Dosing) 1 each MISCELLANE DAILY PRN PRN Reason: Consult order Propranolol HCl (Propranolol Hcl 10 Mg Tablet) 10 mg PO BID [facility]; Protocol Last Admin: 11/12/23 10:43 Dose: 10 mg Documented By: MACEY Quetiapine Fumarate (Quetiapine Fumarate 200 Mg Tablet) 200 mg PO BEDTIME [facility] Sodium Chloride (0.9 % Sodium Chloride Flush 3 Ml Syringe) 3 ml IVFLUSH QSHIFT [facility] Last Admin: 11/12/23 10:44 Dose: 3 ml Documented By: MACEY Labs 11/12/23 07:26 11/12/23 07:26 Labs: Laboratory Results - last 24 hr 11/11/23 11/12/23 20:15 07:26 MCV 83.2 83.9 MCH 27.0 26.8 L MCHC 32.5 32.0 RDW 16.4 H 16.4 H Plt Count 349 326 MPV 8.7 L 8.8 L Immature Gran % (Auto) 0.2 Neut % (Auto) 51.6 Lymph % (Auto) 37.8 [place] % (Auto) 5.1 Eos % (Auto) 4.9 H Baso % (Auto) 0.4 Lymph # (Auto) 3.4 [place] # (Auto) 0.5 Eos # (Auto) 0.4 Baso # (Auto) 0.0 Abs Immat Gran (auto) 0.02 Absolute Neuts (auto) 4.7 Absolute Nucleated RBC 0.000 0.000 Nucleated RBC % (auto) 0.0 0.0 Anion Gap 11 L 9 L Estim Creat Clear Calc 70.0 76.8 Estimated GFR > 60 > 60 Random Glucose 143 H 115 Lactic Acid 0.9 Calcium 9.3 8.5 D Total Bilirubin 0.5 AST 37 H ALT 29 Alkaline Phosphatase 72 Total Protein 7.2 Albumin 4.0 Lipase 29 Beta HCG, Quant < 2 Assessment and Plan (1) Intravenous drug abuse: Status: Acute Plan 38F PMH ivda - mrsa bacteremia (11/02/23), bipolar, presented with feeling unwell MRSA bacteremia and patient uses IV drug Continue vancomycin, follow up ID, echo, follow up culture Opiate dependence with withdrawal and acute toxic metabolic encephalopathy Addiction team appreciated, likely to transitioned to Suboxone instead of methadone due to QT prolongation and history of polymorphic VT Continue Dilaudid as needed Bipolar Holding Zyprexa and Seroquel for QT prolongation, follow-up psychiatry for recommendations DVT prophylaxis with lovenox Full code reason for continued hospitalization: iv abx Quality Stroke Does the patient have a stroke diagnosis?: No VTE Prior VTE?: No VTE Risk Level:: Medical - moderate - high VTE Device Contraindication: Treatment Not Indicated VTE Drug Contraindication: N/A - Med Ordered
[2023-11-12] MEDS: oxyCODONE HCl Immed Release 5 MG TABLET 10 MG PO (11:25)
[2023-11-12] MEDS: Baclofen 10 MG TABLET PO ×2 (11:32→19:57)
[2023-11-12] MEDS: Lidocaine 4 % Patch ADH..PATCH 1 PATCH TRANSDERMA (11:48)
[2023-11-12 12:00] VITALS: BP 151/67; PULSE 86; RESP 19; TEMP 36.6; O2SAT 97
--- NOTE | 2023-11-12 12:57 | P.PNADD_ITS ---
Subjective Subjective Date of Service: 11/12/23 Reason For Visit: Feeling Unwell Interim History: Patient re-admitted to [facility] Self directed discharge 2 days ago During that admission methadone dose was being split and reduced due to QT prolongation and episode of PVT. Seen this morning in room 452 She is very tearful reporting severe withdrawal sx--crying, verbalizing pain and discomfort everywhere anxiety Prior to being seen patient had received oxycodone, dialudid, baclofen, gabapentin and atarax. no relief 2 hours post director paid media. She is tearful when discussing plan to d/c methadone and transition to buprenorphine. She states she can not take suboxone, but can take subutex. After assuring patient that we would work to keep her comfortable she was agreeable. Review of Systems Constitutional: Reports as per HPI Mental Status Exam Mental Status Exam Patient Appearance: Appropriate Level of Consciousness: Awake, Restless and Alert Diagnostics Vital Signs (24Hr): Vital Signs - 24 hr 11/11/23 16:27 11/11/23 16:36 11/11/23 21:33 Temperature 98.0 F Pulse Rate 80 Respiratory Rate 16 16 Blood Pressure 100/62 Pulse Oximetry 100 95 Oxygen Delivery Method Room Air Room Air 11/12/23 04:33 11/12/23 06:41 11/12/23 08:00 Temperature 97.7 F 98.0 F Pulse Rate 81 71 76 Respiratory Rate 15 14 19 Blood Pressure 137/78 120/82 Pulse Oximetry 98 99 Oxygen Delivery Method Room Air Room Air 11/12/23 12:00 Temperature 97.8 F Pulse Rate 86 Respiratory Rate 19 Blood Pressure 151/67 H Pulse Oximetry 97 Oxygen Delivery Method Room Air BMI result Body Mass Index 23.4 Labs 11/12/23 07:26 11/12/23 07:26 Labs: Laboratory Results - last 48 hr 11/11/23 11/12/23 20:15 07:26 WBC 9.0 7.3 RBC 3.70 L 3.84 L Hgb 10.0 L 10.3 L Hct 30.8 L 32.2 L MCV 83.2 83.9 MCH 27.0 26.8 L MCHC 32.5 32.0 RDW 16.4 H 16.4 H Plt Count 349 326 MPV 8.7 L 8.8 L Immature Gran % (Auto) 0.2 Neut % (Auto) 51.6 Lymph % (Auto) 37.8 [place] % (Auto) 5.1 Eos % (Auto) 4.9 H Baso % (Auto) 0.4 Lymph # (Auto) 3.4 [place] # (Auto) 0.5 Eos # (Auto) 0.4 Baso # (Auto) 0.0 Abs Immat Gran (auto) 0.02 Absolute Neuts (auto) 4.7 Absolute Nucleated RBC 0.000 0.000 Nucleated RBC % (auto) 0.0 0.0 Sodium 137 139 Potassium 3.4 4.0 Chloride 103 108 Carbon Dioxide 26 26 Anion Gap 11 L 9 L BUN 23 H 18 H Creatinine 0.79 0.72 Estim Creat Clear Calc 70.0 76.8 Estimated GFR > 60 > 60 Random Glucose 143 H 115 Lactic Acid 0.9 Calcium 9.3 8.5 D Total Bilirubin 0.5 AST 37 H ALT 29 Alkaline Phosphatase 72 Total Protein 7.2 Albumin 4.0 Lipase 29 Beta HCG, Quant < 2 Medications Medications Current Medications Acetaminophen (Acetaminophen 325 Mg Tablet) 650 mg PO Q6H PRN PRN Reason: Pain, Mild (Pain Scale 1-3), fever or headache Baclofen (Baclofen 10 Mg Tablet) 10 mg PO BID [facility] Last Admin: 11/12/23 11:32 Dose: 10 mg Calcium Carbonate (Calcium Carbonate 750 Mg Tab.Chew) 750 mg PO Q4H PRN PRN Reason: Heartburn Enoxaparin Sodium (Enoxaparin Sodium 40 Mg/0.4 Ml Syringe) 40 mg SUBCUT Q24H [facility] Last Admin: 11/12/23 01:32 Dose: 40 mg Gabapentin (Gabapentin 400 Mg Capsule) 800 mg PO TID [facility] Last Admin: 11/12/23 10:42 Dose: 800 mg Hydromorphone HCl (Hydromorphone Hcl 1 Mg/Ml Syringe) 1.5 mg IVPUSH Q2H PRN; Protocol PRN Reason: Pain, Severe (Pain Scale 7-10) Hydroxyzine HCl (Hydroxyzine Hcl 50 Mg Tablet) 50 mg PO BID [facility] Last Admin: 11/12/23 10:43 Dose: 50 mg Vancomycin HCl 1,000 mg/ (Sodium Chloride) 270 mls @ 270 mls/hr IV Q12H [facility] Last Infusion: 11/12/23 11:44 Dose: Infused Lidocaine (Lidocaine 4 % Patch Adh..Patch) 1 patch TRANSDERMA DAILY [facility]; Protocol Last Admin: 11/12/23 11:48 Dose: 1 patch Magnesium Hydroxide (Milk Of Magnesia 30 Ml Oral.Susp) 30 ml PO DAILY PRN PRN Reason: Constipation Melatonin (Melatonin 3 Mg Tablet) 6 mg PO BEDTIME PRN PRN Reason: Insomnia Ondansetron HCl (Ondansetron Hcl 4 Mg/2 Ml Vial) 4 mg IVPUSH Q8H PRN PRN Reason: Nausea and Vomiting Oxycodone HCl (Oxycodone Hcl Immed Release 5 Mg Tablet) 10 mg PO Q4H PRN PRN Reason: Opiate Withdrawal Last Admin: 11/12/23 11:25 Dose: 10 mg Pharmacy Consult (Consult Rx Vancomycin Dosing) 1 each MISCELLANE DAILY PRN PRN Reason: Consult order Propranolol HCl (Propranolol Hcl 10 Mg Tablet) 10 mg PO BID [facility]; Protocol Last Admin: 11/12/23 10:43 Dose: 10 mg Sodium Chloride (0.9 % Sodium Chloride Flush 3 Ml Syringe) 3 ml IVFLUSH QSHIFT [facility] Last Admin: 11/12/23 10:44 Dose: 3 ml Allergies Allergies Allergy/AdvReac Type Severity Reaction Status Date / Time No Known Allergies Allergy Verified 11/11/23 16:35 [No Known Allergies*] Assessment & Plan Assessment & Plan (1) Opiate withdrawal: Status: Acute Code(s): F11.23 - Opioid dependence with withdrawal Plan * Plan to transition from methadone to buprenorphine. * Oxycodone 10mg q4 PRN --will change to scheduled in AM once pain and withdrawal better controlled with dialudud * Dialudid 1.5mg q 2 * added methadone 20mg x1 * lorazepam 1mg q6H for anxiety * will require higher doses of opiates to manage withdrawal secondary to tolerance from both methadone and ongoing fentanyl use. Please continue to medicate as appropriate, she may be very uncomfortable and anxious. Total time managing care of this patient today ___60_ minutes.
[2023-11-12] MEDS: LORazepam 1 MG TABLET PO (13:05)
[2023-11-12] MEDS: methADONE HCl 20 MG/2 ML ORAL.CONC PO (13:05)
[2023-11-12] MEDS: HYDROmorphone HCl 1 MG/ML SYRINGE 1.5 MG IVPUSH ×4 (14:30→22:45)
[2023-11-12] MEDS: ondansetron HCL 4 MG/2 ML VIAL IVPUSH ×2 (14:34→20:31)
[2023-11-12 19:12] VITALS: BP 123/68; PULSE 85; RESP 22; TEMP 36.7; O2SAT 97
[2023-11-12] MEDS: OLANZapine 10 MG TABLET PO (21:36)
[2023-11-12 22:38] VITALS: BP 109/55; PULSE 83; RESP 23; TEMP 36.2; O2SAT 97
[2023-11-13] VITALS (7 sets, daily range): BP systolic 104–150; BP diastolic 57–70; PULSE 68–95; RESP 18–19; TEMP 36.4–36.8; O2SAT 96–98
--- NOTE | 2023-11-13 | ECG_ITS ---
Test Reason : qtc Blood Pressure : / mmHG Vent. Rate : 091 BPM Atrial Rate : 091 BPM P-R Int : 118 ms QRS Dur : 086 ms QT Int : 392 ms P-R-T Axes : 040 -19 -01 degrees QTc Int : 482 ms Sinus rhythm with occasional Premature ventricular complexes Prolonged QT Abnormal ECG When compared with ECG of 12-NOV-2023 07:25, Premature ventricular complexes are now Present Referred By: Juno Cavazos Electronically Signed By:COSME DOYLE
[2023-11-13] MEDS: 0.9 % Sodium Chloride Flush 3 ML SYRINGE IVFLUSH ×4 (00:36→20:10)
[2023-11-13] MEDS: HYDROmorphone HCl 1 MG/ML SYRINGE 1.5 MG IVPUSH ×5 (01:00→13:01)
[2023-11-13] MEDS: LORazepam 1 MG TABLET PO ×3 (02:06→15:15)
--- NOTE | 2023-11-13 07:00 | CA_ITS ---
Transthoracic Echocardiogram Patient (Last, First, Middle): Sangeeta Hollingsworth L Gender: Female Date of : 1985 Age: 38 Procedure Date: 11/13/2023 Procedure Type: Transthoracic Echocardiogram Location: [facility] Height: 152.4 cm Weight: 56.25 kg BSA: 1.52 m2 Heart Rate: bpm BP: 137 / 78 mmHg Balance Engineer: TO Referring MD: Yasmani Johnson MD Symptoms: MRSA bacteremia Study Quality: Fair Conclusions: - The left ventricular systolic function is normal. The calculated ejection fraction is 55% by biplane method. - No obvious valvular pathology seen on this study. Findings Procedure Information The study quality is limited by the patients inability to tolerate the test. Left Ventricle Normal left ventricular cavity size. There is normal left ventricular wall thickness. The left ventricular systolic function is normal. The calculated ejection fraction is 55% by biplane method. There is no evidence of regional wall motion abnormalities. Diastolic function is normal for age. Right Ventricle Normal right ventricular cavity size and systolic function. Atria Both atria are normal in size. Aortic Valve There is a normal trileaflet aortic valve. There is no aortic valve stenosis. There is no aortic valve regurgitation. Mitral Valve The mitral valve appears normal. There is no mitral valve regurgitation. There is no mitral valve stenosis. Pulmonic Valve The pulmonic valve is likely normal. Tricuspid Valve Normal tricuspid valve structure. There is no tricuspid valve regurgitation. Tricuspid regurgitation envelope is inadequate for calculation of right ventricular systolic pressure. Great Vessels The asc aorta is normal in size. Venous The inferior vena cava is normal in size and collapses greater than 50% with inspiration. Pericardium/Pleural There is no evidence of pericardial effusion. Prior Study Comparison No significant change compared to prior study dated: 08/14/2023. Recommendations, Care & Conclusions No obvious valvular pathology seen on this study. Measurements 2D Linear Measurements IVSd: 0.97 0.6-0.9/0.6-1.0 cm LVIDd: 4.39 3.9-5.3/4.2-5.9 cm LVIDd Index: 2.89 2.4-3.2/2.2-3.1 cm/m2 LVIDs: 3.17 2.0-3.6 cm LVPWd: 0.94 0.7-1.1 cm LA Diam: 2.90 2.7-3.8/3.0-4.0 cm LAIDs Index: 1.91 1.5-2.3 cm/m2 LV Mass: 172.18 67-162/88-224 g LV Mass Index: 113.28 43-95/49-115 g/m2 LVOT Diam: 2.10 3.0+(-)1.3 cm 2D Systolic Function EF 4C: 55.80 >55% EF 2C: 52.00 >55% EF BiP: 55.10 >55% Mitral Valve MV Pk E: 0.46 MV PK A: 0.46 MV Decel Time: 274.00 E/A: 1.00 E'Lateral: 12.60 E'Medial: 6.64 E/E' Med: 6.90 E/E' Lat: 3.60 PHT: 80.00 MVA PHT: 2.75 Decel K[place]haw: 1.67 Aortic Valve AoV Pk Branden: 1.39 AoV Mn Branden: 0.94 AoV VTI: 0.23 AoV Pk Grad: 8.00 Aov Mn Grad: 4.00 MARVIN Cont.VTI: 2.51 LVOT LVOT Pk Branden: 1.04 LVOT Mn Branden: 0.60 LVOT VTI: 0.17 LVOT Pk Grad: 4.00 LVOT Mn Grad: 2.00 LVOT Diam: 2.10 LVOT Area: 3.46 Diastolic Function MV Pk E: 0.46 MV Pk A: 0.46 E/A: 1.00 E'Medial: 6.64 E/E' Med: 6.90 E' Laterial: 12.60 E/E' Lat: 3.60 Right Ventricle TAPSE (mm): 20.30 TVS' Branden: 13.20 Tricuspid Valve RA Press: 3.00 Great Vessels Aorta Sinus of Valsalva: 3.39 2.0-3.5 cm Ao Asc: 3.30 2.1-3.4 cm Updated in Other Vendor System with Status of Final Joseph Mehta MD electronically signed on 11/13/2023 11:57:37 AM with status of Final
[2023-11-13 08:05] LABS: Hematocrit 32.4 % (37.0-47.0); Hemoglobin 10.1 g/dl (12.0-16.0); Mean Corpuscular HGB Conc 31.2 g/dl (31.0-35.0); Mean Corpuscular Hemoglobin 26.6 pg (27.0-33.0); Mean Corpuscular Volume 85.3 fL (80.0-98.0); Mean Platelet Volume 9.3 fL (9.4-12.3); Platelet Count 327 X10*3/uL (160-400); Red Cell Distribution Width 16.1 % (11.0-16.0)
[2023-11-13] MEDS: Baclofen 10 MG TABLET PO ×2 (08:11→20:10)
[2023-11-13] MEDS: ondansetron HCL 4 MG/2 ML VIAL IVPUSH ×2 (08:11→17:00)
[2023-11-13] MEDS: Propranolol HCL 10 MG TABLET PO ×2 (08:11→20:09)
[2023-11-13] MEDS: Gabapentin 400 MG CAPSULE 800 MG PO ×3 (08:11→20:09)
[2023-11-13] MEDS: hydrOXYzine HCL 50 MG TABLET PO (08:11)
[2023-11-13] MEDS: Lidocaine 4 % Patch ADH..PATCH 1 PATCH TRANSDERMA ×2 (08:12→17:01)
[2023-11-13 08:22] LABS: Vancomycin Random 5.8 mcg/mL (15-20)
[2023-11-13 08:28] LABS: Anion Gap 14 (12-20); Blood Urea Nitrogen 12 mg/dL (9-16); Calcium 9.3 mg/dL (8.4-10.2); Carbon Dioxide 18 mmol/L (22-29); Chloride 109 mmol/L (96-108); Creatinine Clr Calc Pharmacy 71.8; Estimated Glomerular Filt Rate > 60; Glucose Fasting 110 mg/dL (60-99); Sodium 137 mmol/L (135-145)
--- NOTE | 2023-11-13 08:53 | P.PNIM_ITS ---
Subjective Subjective Date of Service: 11/13/23 Interval History: wants more opiates Physical Exam 2 Vital Signs: Vital Signs: Last Vital Signs Temp 97.8 F 11/13/23 07:32 Pulse 68 11/13/23 07:32 Resp 19 11/13/23 07:32 BP 150/70 H 11/13/23 07:32 Pulse Ox 98 11/13/23 07:32 O2 Del Method Room Air 11/13/23 07:32 BMI result Body Mass Index 23.4 no acute distress lungs clear s1, s2, rrr Objective Data Active Medications Acetaminophen (Acetaminophen 325 Mg Tablet) 650 mg PO Q6H PRN PRN Reason: Pain, Mild (Pain Scale 1-3), fever or headache Baclofen (Baclofen 10 Mg Tablet) 10 mg PO BID [facility] Last Admin: 11/13/23 08:11 Dose: 10 mg Documented By: CONI Calcium Carbonate (Calcium Carbonate 750 Mg Tab.Chew) 750 mg PO Q4H PRN PRN Reason: Heartburn Enoxaparin Sodium (Enoxaparin Sodium 40 Mg/0.4 Ml Syringe) 40 mg SUBCUT Q24H [facility] Last Admin: 11/12/23 22:48 Dose: Not Given Documented By: MARIBEL Non-Admin Reason: Patient Refused Gabapentin (Gabapentin 400 Mg Capsule) 800 mg PO TID [facility] Last Admin: 11/13/23 08:11 Dose: 800 mg Documented By: CONI Hydromorphone HCl (Hydromorphone Hcl 1 Mg/Ml Syringe) 1.5 mg IVPUSH Q2H PRN; Protocol PRN Reason: Pain, Severe (Pain Scale 7-10) Last Admin: 11/13/23 08:12 Dose: 1.5 mg Documented By: CONI Hydroxyzine HCl (Hydroxyzine Hcl 50 Mg Tablet) 50 mg PO BID [facility] Last Admin: 11/13/23 08:11 Dose: 50 mg Documented By: CONI Vancomycin HCl 1,000 mg/ (Sodium Chloride) 270 mls @ 270 mls/hr IV Q12H [facility] Last Infusion: 11/12/23 22:54 Dose: Infused Documented By: MARIBEL Lidocaine (Lidocaine 4 % Patch Adh..Patch) 1 patch TRANSDERMA DAILY [facility]; Protocol Last Admin: 11/13/23 08:12 Dose: 1 patch Documented By: CONI Lorazepam (Lorazepam 1 Mg Tablet) 1 mg PO Q6H PRN PRN Reason: Anxiety Last Admin: 11/13/23 08:11 Dose: 1 mg Documented By: CONI Magnesium Hydroxide (Milk Of Magnesia 30 Ml Oral.Susp) 30 ml PO DAILY PRN PRN Reason: Constipation Melatonin (Melatonin 3 Mg Tablet) 6 mg PO BEDTIME PRN PRN Reason: Insomnia Ondansetron HCl (Ondansetron Hcl 4 Mg/2 Ml Vial) 4 mg IVPUSH Q8H PRN PRN Reason: Nausea and Vomiting Last Admin: 11/13/23 08:11 Dose: 4 mg Documented By: CONI Oxycodone HCl (Oxycodone Hcl Immed Release 5 Mg Tablet) 10 mg PO Q4H [facility] Pharmacy Consult (Consult Rx Vancomycin Dosing) 1 each MISCELLANE DAILY PRN PRN Reason: Consult order Propranolol HCl (Propranolol Hcl 10 Mg Tablet) 10 mg PO BID [facility]; Protocol Last Admin: 11/13/23 08:11 Dose: 10 mg Documented By: CONI Sodium Chloride (0.9 % Sodium Chloride Flush 3 Ml Syringe) [facility] Last Admin: 11/13/23 08:13 Dose: 3 ml Documented By: CONI Labs 11/13/23 07:48 11/13/23 07:48 Labs: Laboratory Results - last 24 hr 11/13/23 07:48 MCV 85.3 MCH 26.6 L MCHC 31.2 RDW 16.1 H Plt Count 327 MPV 9.3 L Absolute Nucleated RBC 0.000 Nucleated RBC % (auto) 0.0 Anion Gap 14 Estim Creat Clear Calc 71.8 Estimated GFR > 60 Fasting Glucose 110 H Calcium 9.3 D Random Vancomycin 5.8 L Microbiology Microbiology Results: Microbiology 11/11/23 20:15 Blood Culture - Preliminary Blood - Venous No growth after 24 hours. 11/11/23 20:16 Blood Culture - Preliminary Blood - Venous No growth after 24 hours. Assessment and Plan (1) Intravenous drug abuse: Status: Acute Plan 38F PMH ivda - mrsa bacteremia (11/02/23), bipolar, presented with feeling unwell MRSA bacteremia and patient uses IV drug Continue vancomycin, follow up ID, echo, follow up culture Opiate dependence with withdrawal and acute toxic metabolic encephalopathy Addiction team appreciated, likely to transitioned to Suboxone instead of methadone due to QT prolongation and history of polymorphic VT Continue Dilaudid as needed, oxycodone Bipolar Holding Zyprexa and Seroquel for QT prolongation, if one needed, would use zyprexa DVT prophylaxis with lovenox Full code reason for continued hospitalization: iv abx Quality Stroke Does the patient have a stroke diagnosis?: No VTE Prior VTE?: No VTE Risk Level:: Medical - moderate - high VTE Device Contraindication: Treatment Not Indicated VTE Drug Contraindication: N/A - Med Ordered
--- NOTE | 2023-11-13 09:00 | HE.PHANOTE ---
RE: VANCO DOSING Random came back as 5.8. Dose is increased to 1750 mg q12h to get pt to therapeutic level (indication = bacteremia). Next random is scheduled for 11/14/23 @0800.
[2023-11-13] MEDS: oxyCODONE HCl Immed Release 5 MG TABLET 10 MG PO ×2 (10:30→12:57)
[2023-11-13] MEDS: vancomycin HCL 1,000 MG, vancomycin HCL 750 MG in 0.9 % Sodium Chloride 500 ML 267.5 MG IV ×2 (10:37→21:23)
--- NOTE | 2023-11-13 10:39 | MHC.RECOVRN ---
Attempted to meet with pt in 452 to follow up and provide support. Pt laying in bed, asleep, does not wake to voice. Appears comfortable. Will continue to follow.
[2023-11-13] MEDS: methADONE HCl 20 MG/2 ML ORAL.CONC PO (12:08)
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
--- NOTE | 2023-11-13 14:07 | P.PNADD_ITS ---
Subjective Subjective Date of Service: 11/13/23 Reason For Visit: Feeling Unwell Interim History: Continuing to report withdrawal sx and tearful--mainly body aches/pain, anxiety and restlessness Diaphoretic when seen by hourly manager and requesting increase in medications tearful, stating she wanted to leave and use to address her symptoms, but wants to stay and get current medical issues taken care of has been utilizing PRN medications with regularity current doses of opiates do not appear to be managing withdrawal sx appropriately-will require increase Review of Systems Constitutional: Reports as per HPI Mental Status Exam Mental Status Exam Patient Behavior: Anxious and Crying Diagnostics Vital Signs (24Hr): Vital Signs - 24 hr 11/12/23 15:48 11/12/23 19:12 11/12/23 22:38 Temperature 98.1 F 97.2 F Pulse Rate 85 83 Respiratory Rate 22 H 23 H Blood Pressure 123/68 109/55 L Pulse Oximetry 97 97 Oxygen Delivery Method Room Air Room Air Room Air 11/13/23 07:32 11/13/23 12:00 11/13/23 13:00 Temperature 97.8 F 98.0 F Pulse Rate 68 95 Respiratory Rate 19 19 Blood Pressure 150/70 H 115/60 Pulse Oximetry 98 97 Oxygen Delivery Method Room Air Room Air Room Air BMI result Body Mass Index 23.4 Labs 11/13/23 07:48 11/13/23 07:48 Labs: Laboratory Results - last 48 hr 11/11/23 11/12/23 11/13/23 20:15 07:26 07:48 WBC 9.0 7.3 8.0 RBC 3.70 L 3.84 L 3.80 L Hgb 10.0 L 10.3 L 10.1 L Hct 30.8 L 32.2 L 32.4 L MCV 83.2 83.9 85.3 MCH 27.0 26.8 L 26.6 L MCHC 32.5 32.0 31.2 RDW 16.4 H 16.4 H 16.1 H Plt Count 349 326 327 MPV 8.7 L 8.8 L 9.3 L Immature Gran % (Auto) 0.2 Neut % (Auto) 51.6 Lymph % (Auto) 37.8 [place] % (Auto) 5.1 Eos % (Auto) 4.9 H Baso % (Auto) 0.4 Lymph # (Auto) 3.4 [place] # (Auto) 0.5 Eos # (Auto) 0.4 Baso # (Auto) 0.0 Abs Immat Gran (auto) 0.02 Absolute Neuts (auto) 4.7 Absolute Nucleated RBC 0.000 0.000 0.000 Nucleated RBC % (auto) 0.0 0.0 0.0 Sodium 137 139 137 Potassium 3.4 4.0 4.0 Chloride 103 108 109 H Carbon Dioxide 26 26 18 L Anion Gap 11 L 9 L 14 BUN 23 H 18 H 12 Creatinine 0.79 0.72 0.77 Estim Creat Clear Calc 70.0 76.8 71.8 Estimated GFR > 60 > 60 > 60 Random Glucose 143 H 115 Fasting Glucose 110 H Lactic Acid 0.9 Calcium 9.3 8.5 D 9.3 D Total Bilirubin 0.5 AST 37 H ALT 29 Alkaline Phosphatase 72 Total Protein 7.2 Albumin 4.0 Lipase 29 Beta HCG, Quant < 2 Random Vancomycin 5.8 L Medications Medications Current Medications Acetaminophen (Acetaminophen 325 Mg Tablet) 650 mg PO Q6H PRN PRN Reason: Pain, Mild (Pain Scale 1-3), fever or headache Baclofen (Baclofen 10 Mg Tablet) 10 mg PO BID [facility] Last Admin: 11/13/23 08:11 Dose: 10 mg Calcium Carbonate (Calcium Carbonate 750 Mg Tab.Chew) 750 mg PO Q4H PRN PRN Reason: Heartburn Enoxaparin Sodium (Enoxaparin Sodium 40 Mg/0.4 Ml Syringe) 40 mg SUBCUT Q24H [facility] Last Admin: 11/12/23 22:48 Dose: Not Given Gabapentin (Gabapentin 400 Mg Capsule) 800 mg PO TID [facility] Last Admin: 11/13/23 08:11 Dose: 800 mg Hydromorphone HCl (Hydromorphone Hcl 1 Mg/Ml Syringe) 1.5 mg IVPUSH Q2H PRN; Protocol PRN Reason: Pain, Severe (Pain Scale 7-10) Last Admin: 11/13/23 13:01 Dose: 1.5 mg Vancomycin HCl 1,000 mg/Vancomycin HCl 750 mg/ Sodium Chloride 535 mls @ 267.5 mls/hr IV Q12H [facility] Last Infusion: 11/13/23 13:31 Dose: Infused Lidocaine (Lidocaine 4 % Patch Adh..Patch) 1 patch TRANSDERMA DAILY [facility]; Protocol Last Admin: 11/13/23 08:12 Dose: 1 patch Lorazepam (Lorazepam 1 Mg Tablet) 1 mg PO Q6H PRN PRN Reason: Anxiety Last Admin: 11/13/23 08:11 Dose: 1 mg Magnesium Hydroxide (Milk Of Magnesia 30 Ml Oral.Susp) 30 ml PO DAILY PRN PRN Reason: Constipation Melatonin (Melatonin 3 Mg Tablet) 6 mg PO BEDTIME PRN PRN Reason: Insomnia Ondansetron HCl (Ondansetron Hcl 4 Mg/2 Ml Vial) 4 mg IVPUSH Q8H PRN PRN Reason: Nausea and Vomiting Last Admin: 11/13/23 08:11 Dose: 4 mg Oxycodone HCl (Oxycodone Hcl Immed Release 5 Mg Tablet) 10 mg PO Q4H [facility] Last Admin: 11/13/23 12:57 Dose: 10 mg Pharmacy Consult (Consult Rx Vancomycin Dosing) 1 each MISCELLANE DAILY PRN PRN Reason: Consult order Propranolol HCl (Propranolol Hcl 10 Mg Tablet) 10 mg PO BID [facility]; Protocol Last Admin: 11/13/23 08:11 Dose: 10 mg Sodium Chloride (0.9 % Sodium Chloride Flush 3 Ml Syringe) 3 ml IVFLUSH QSHIFT [facility] Last Admin: 11/13/23 08:13 Dose: 3 ml Allergies Allergies Allergy/AdvReac Type Severity Reaction Status Date / Time No Known Allergies Allergy Verified 11/11/23 16:35 [No Known Allergies*] Assessment & Plan Assessment & Plan (1) Opiate withdrawal: Status: Acute Code(s): F11.23 - Opioid dependence with withdrawal Assessment and Plan: * case discussed with addiction medicine provider from [facility] and attending provider * goal is to discontinue Methadone entirely and transition to bupe--however withdrawal sx have been significant secondary to very high tolerance --patient continues to c/o of pain and discomfort and anxiety. When seen by t/w or hourly manager, she is awake, alert and uncomfortable. She required PRN dilaudid all night. * will increase oxycodone to 20mg Q4 * increase Dilaudid to 2mg Q2 PRN * recommend continuous pulse ox given high doses of opiates and other sedating agents * plan to start buprenorphine on Thursday (microinduction/cross titration) Total time managing care of this patient today __45__ minutes.
--- NOTE | 2023-11-13 14:52 | ECG_ITS ---
Test Reason : follow up qt Blood Pressure : / mmHG Vent. Rate : 077 BPM Atrial Rate : 077 BPM P-R Int : 122 ms QRS Dur : 082 ms QT Int : 404 ms P-R-T Axes : 041 -21 002 degrees QTc Int : 457 ms Normal sinus rhythm Normal ECG When compared with ECG of 13-NOV-2023 14:50, Premature ventricular complexes are no longer Present QT has shortened Referred By: Shola Munoz Electronically Signed By:COSME DOYLE
[2023-11-13] MEDS: clonazePAM 0.5 MG TABLET PO ×2 (15:15→20:09)
[2023-11-13] MEDS: HYDROmorphone HCl 1 MG/ML SYRINGE 2 MG IVPUSH ×4 (15:16→23:45)
[2023-11-13] MEDS: oxyCODONE HCl Immed Release 5 MG TABLET 20 MG PO ×2 (17:01→20:09)
[2023-11-13] MEDS: Acetaminophen 325 MG TABLET 650 MG PO (18:28)
[2023-11-13] MEDS: OLANZapine 5 MG TABLET PO (20:09)
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
--- NOTE | 2023-11-13 22:42 | PM.EVENT ---
Event Note Date of Service: 11/13/23 Event Note: Echo if not done Time Spent With Patient Time: Total time managing care of this patient today ____ minutes.
[2023-11-13] MEDS: Enoxaparin Sodium 40 MG/0.4 ML SYRINGE SUBCUT (23:45)
[2023-11-14] VITALS (10 sets, daily range): BP systolic 101–105; BP diastolic 56–61; PULSE 82–88; RESP 16–20; TEMP 36.5–37; O2SAT 94–98
[2023-11-14] MEDS: oxyCODONE HCl Immed Release 5 MG TABLET 20 MG PO ×3 (01:22→09:35)
[2023-11-14] MEDS: ondansetron HCL 4 MG/2 ML VIAL IVPUSH (01:54)
[2023-11-14] MEDS: HYDROmorphone HCl 1 MG/ML SYRINGE 2 MG IVPUSH ×4 (02:30→09:59)
[2023-11-14] MEDS: LORazepam 1 MG TABLET PO ×2 (05:19→11:07)
[2023-11-14 06:38] LABS: Creatinine Clr Calc Pharmacy 73.7; Estimated Glomerular Filt Rate > 60
[2023-11-14] MEDS: OLANZapine 5 MG TABLET PO (07:47)
[2023-11-14] MEDS: Baclofen 10 MG TABLET PO (07:47)
[2023-11-14] MEDS: Gabapentin 400 MG CAPSULE 800 MG PO (07:47)
[2023-11-14] MEDS: clonazePAM 0.5 MG TABLET PO (07:47)
[2023-11-14] MEDS: Lidocaine 4 % Patch ADH..PATCH 1 PATCH TRANSDERMA (07:48)
[2023-11-14] MEDS: Propranolol HCL 10 MG TABLET PO (07:48)
[2023-11-14 09:01] LABS: Vancomycin Random 12.3 mcg/mL (15-20)
--- NOTE | 2023-11-14 09:08 | HO.PM.IMPN ---
Subjective Subjective Date of Service: 11/14/23 Interval History: withdrawal, ansty Physical Exam Vital Signs: Vital Signs: Last Vital Signs Temp 98.5 F 11/14/23 07:51 Pulse 88 11/14/23 07:51 Resp 19 11/14/23 07:51 BP 105/56 L 11/14/23 07:51 Pulse Ox 98 11/14/23 07:51 O2 Del Method Room Air 11/14/23 07:51 BMI result Body Mass Index 23.4 Const: General: cooperative HEENT: Head: Yes normal to inspection Face and sinus: Yes normal facial exam Mouth: Normal oral and palatal mucosa present Teeth and gingiva: dentition normal Eyes: General: appearance normal, both eyes and all related structures Pupils: Equal, round and reactive pupils present Resp: Effort & Inspection: normal respiratory effort Cardio: Rate: regular rate Rhythm: regular rhythm GI: Palpation (GI): Soft to palpation and nontender : General: Yes no CVA tenderness Back/Spine/Pelvis: Back: no CVA tenderness Skin: General skin exam: no rashes or lesions noted Neuro: General: moves all extremities Cranial nerves: Yes Equal, round and reactive pupils present Extrem: General: Yes normal to inspection Psych: Other: anxious Objective Data Active Medications Acetaminophen (Acetaminophen 325 Mg Tablet) 650 mg PO Q6H PRN PRN Reason: Pain, Mild (Pain Scale 1-3), fever or headache Last Admin: 11/13/23 18:28 Dose: 650 mg Documented By: CONI Baclofen (Baclofen 10 Mg Tablet) 10 mg PO BID [facility] Last Admin: 11/14/23 07:47 Dose: 10 mg Documented By: KEANU Calcium Carbonate (Calcium Carbonate 750 Mg Tab.Chew) 750 mg PO Q4H PRN PRN Reason: Heartburn Clonazepam (Clonazepam 0.5 Mg Tablet) 0.5 mg PO BID [facility] Last Admin: 11/14/23 07:47 Dose: 0.5 mg Documented By: KEANU Enoxaparin Sodium (Enoxaparin Sodium 40 Mg/0.4 Ml Syringe) 40 mg SUBCUT Q24H [facility] Last Admin: 11/13/23 23:45 Dose: 40 mg Documented By: LAFLAMC Gabapentin (Gabapentin 400 Mg Capsule) 800 mg PO TID [facility] Last Admin: 11/14/23 07:47 Dose: 800 mg Documented By: KEANU Hydromorphone HCl (Hydromorphone Hcl 1 Mg/Ml Syringe) 2 mg IVPUSH Q2H PRN; Protocol PRN Reason: Pain, Severe (Pain Scale 7-10) Last Admin: 11/14/23 07:01 Dose: 2 mg Documented By: MACEY Vancomycin HCl 1,000 mg/Vancomycin HCl 750 mg/ Sodium Chloride 535 mls @ 267.5 mls/hr IV Q12H [facility] Last Infusion: 11/13/23 23:35 Dose: Infused Documented By: EMMA Lidocaine (Lidocaine 4 % Patch Adh..Patch) 1 patch TRANSDERMA DAILY [facility]; Protocol Last Admin: 11/14/23 07:48 Dose: 1 patch Documented By: KEANU Lorazepam (Lorazepam 1 Mg Tablet) 1 mg PO Q6H PRN PRN Reason: Anxiety Last Admin: 11/14/23 05:19 Dose: 1 mg Documented By: EMMA Magnesium Hydroxide (Milk Of Magnesia 30 Ml Oral.Susp) 30 ml PO DAILY PRN PRN Reason: Constipation Melatonin (Melatonin 3 Mg Tablet) 6 mg PO BEDTIME PRN PRN Reason: Insomnia Olanzapine (Olanzapine 5 Mg Tablet) 5 mg PO BID [facility] Last Admin: 11/14/23 07:47 Dose: 5 mg Documented By: KEANU Ondansetron HCl (Ondansetron Hcl 4 Mg/2 Ml Vial) 4 mg IVPUSH Q8H PRN PRN Reason: Nausea and Vomiting Last Admin: 11/14/23 01:54 Dose: 4 mg Documented By: EMMA Oxycodone HCl (Oxycodone Hcl Immed Release 5 Mg Tablet) 20 mg PO Q4H [facility] Last Admin: 11/14/23 06:06 Dose: 20 mg Documented By: EMMA Pharmacy Consult (Consult Rx Vancomycin Dosing) 1 each MISCELLANE DAILY PRN PRN Reason: Consult order Propranolol HCl (Propranolol Hcl 10 Mg Tablet) 10 mg PO BID [facility]; Protocol Last Admin: 11/14/23 07:48 Dose: 10 mg Documented By: KEANU Sodium Chloride (0.9 % Sodium Chloride Flush 3 Ml Syringe) [facility] Admin: 11/13/23 20:10 Dose: 3 ml Documented By: EMMA Labs 11/13/23 07:48 11/14/23 05:38 Labs: Laboratory Results - last 24 hr 11/14/23 11/14/23 05:38 08:39 Hold Purple Top SEE NOTE Estim Creat Clear Calc 73.7 Estimated GFR > 60 Random Vancomycin 12.3 L Microbiology Microbiology Results: Microbiology 11/11/23 20:15 Blood Culture - Preliminary Blood - Venous No growth after 48 hours. 11/11/23 20:16 Blood Culture - Preliminary Blood - Venous No growth after 48 hours. Assessment and Plan (1) Intravenous drug abuse: Status: Acute Plan 38F PMH ivda - mrsa bacteremia (11/02/23), bipolar, presented with feeling unwell MRSA bacteremia in patient who uses IV drug Continue vancomycin, echo unremarkable, ID appreciated - 4 weeks total, last negative 11/03/23, (only missed a couple doses after leaving AMA 11/10/23 and repeat cultures negative, so will keep 11/02 as start date), end date would be 11/30/23. Opiate dependence with withdrawal and acute toxic metabolic encephalopathy Addiction team appreciated, likely to transition to Suboxone instead of methadone due to QT prolongation and history of polymorphic VT Continue Dilaudid as needed, oxycodone Bipolar stopped Seroquel for QT prolongation titrating olanzapine back on while monitoring qt and will increase to 10mg bid if stable DVT prophylaxis with lovenox Full code reason for continued hospitalization: iv abx Quality Stroke Does the patient have a stroke diagnosis?: No VTE Prior VTE?: No VTE Risk Level:: Medical - moderate - high VTE Device Contraindication: Treatment Not Indicated VTE Drug Contraindication: N/A - Med Ordered
--- NOTE | 2023-11-14 09:32 | HE.PHANOTE ---
VANCO DOSE ADJUSTMENT BASED ON SCR AND TROUGH OF 12.3 DOSE CHANGED TO 1000Q8. NEXT TROUGH AT 11/14 @ 0800
[2023-11-14] MEDS: 0.9 % Sodium Chloride Flush 3 ML SYRINGE IVFLUSH (09:36)
[2023-11-14] MEDS: vancomycin HCL 1,000 MG in 0.9 % Sodium Chloride 250 ML 270 MG IV (10:38)
--- NOTE | 2023-11-14 11:30 | PM.DS ---
DS: Providers Provider Date of Service: 11/14/23 Date of admission: 11/11/23 22:53 Date of discharge: 11/14/23 Primary care physician: [facility] Consults: 11/11/23 22:53 Addiction Medicine Routine Consulting Provider: Addiction Covering Reason for consultation: polysubstance use disorder Consult to Infectious Diseases Routine Consulting Provider: [facility] Reason for consultation: MRSA bacteremia 11/11/23 23:02 Consult to Psychiatry Routine Consulting Provider: Psych Covering Reason for consultation: bipolar disorder DS: Diagnosis Discharge Diagnosis (1) Intravenous drug abuse: Status: Acute DS: Summary Hospital Course Hospital Course: from initial hpi: 38-year-old female with pertinent history of IV drug use disorder, bipolar disorder presents to the emergency department for feeling unwell. Of note, patient was recently admitted on 11/06 for blood culture (11/01) growing MRSA. Patient was found to have prolonged QTC and polymorphic ventricular tachycardia during hospitalization. Patient was seen by Cardiology but left against medical advice before being seen by infectious disease or before an echocardiogram could be obtained. Patient left hospital on 11/09 without completing treatment for MRSA bacteremia. Patient is drowsy at the time of my evaluation but awakens to verbal stimulus. States she left the hospital to continue using IV cocaine. Complains of generalized malaise. Also mentioned to ER provider that her partner tested positive for gonorrhea. Unable to obtain review of systems. hospital course: Patient was readmitted to treat her known MRSA bacteremia in a patient who uses IV drugs. She was continued on IV vancomycin, echo was unremarkable, blood cultures were negative. Plan was to continue IV antibiotics until 11/30/2023. However, patient decided to leave against medical advice. She was able to express understanding of the risks of doing so including . For opiate dependence with withdrawal and acute toxic metabolic encephalopathy she was seen by Addiction team and provided with opiate replacement with hydromorphone and oxycodone. Bipolar was treated with olanzapine. QT prolongation was treated with stopping Seroquel and methadone. QT is under 500 at this time. Time Attestation Discharge Coordination Time (in mins): 33 Quality: Safe Use of Opioids Does Pt have an Active Cancer Diagnosis on the Problem List?: No Quality: Stroke Does the patient have a stroke diagnosis?: No Physical Exam Vital Signs: Vital Signs: Last Vital Signs Temp 98.5 F 11/14/23 07:51 Pulse 88 11/14/23 07:51 Resp 19 11/14/23 07:51 BP 105/56 L 11/14/23 07:51 Pulse Ox 98 11/14/23 07:51 O2 Del Method Room Air 11/14/23 07:51 BMI result Body Mass Index 23.4 Const: General: cooperative HEENT: Head: Yes normal to inspection Face and sinus: Yes normal facial exam Mouth: Normal oral and palatal mucosa present Teeth and gingiva: dentition normal Eyes: General: appearance normal, both eyes and all related structures Pupils: Equal, round and reactive pupils present Resp: Effort & Inspection: normal respiratory effort Cardio: Rate: regular rate Rhythm: regular rhythm GI: Palpation (GI): Soft to palpation and nontender : General: Yes no CVA tenderness Back/Spine/Pelvis: Back: no CVA tenderness Skin: General skin exam: no rashes or lesions noted Neuro: General: moves all extremities Cranial nerves: Yes Equal, round and reactive pupils present Extrem: General: Yes normal to inspection Psych: Other: anxious DS: Data Data Completed and Pending Completed studies during hospitalization [Text1]: Procedures Detoxification Services for Substance Abuse Treatment (10/05/20) Labs on day of discharge: Laboratory Results - last 24 hr 11/14/23 11/14/23 05:38 08:39 Hold Purple Top SEE NOTE Creatinine 0.75 Estim Creat Clear Calc 73.7 Estimated GFR > 60 Random Vancomycin 12.3 L Preliminary micro results at discharge 11/11/23 20:15 Blood Culture - Preliminary Blood - Venous No growth after 48 hours. 11/11/23 20:16 Blood Culture - Preliminary Blood - Venous No growth after 48 hours. Discharge Plan Discharge Anticipated Discharge Date/Time: 11/14/23 11:29 Patient Disposition: Left Against Medical Advice Discharge Diagnosis: mrsa Referrals: [facility] [Primary Care Provider] - 1 Week Discharge Medications: Continued nicotine (polacrilex) 4 mg gum 4 mg PO QID PRN (Reason: Nicotine Cravings) methadone [Methadose] 10 mg/mL Concentrate 190 mg PO DAILY Patient Comments: Verfieid by clint from [facility] center for [facility]. Phone number [phone] quetiapine [Seroquel] 200 mg Tablet 200 mg PO BEDTIME olanzapine [Zyprexa] 5 mg Tablet 5 mg PO BID hydroxyzine HCl [Atarax] 50 mg Tablet 50 mg PO BID propranolol 10 mg Tablet 10 mg PO BID gabapentin 800 mg Tablet 800 mg PO TID nicotine 21 mg/24 hr patch 24 hour 1 patch topical DAILY ibuprofen 600 mg tablet 600 mg PO BID PRN (Reason: Pain) Discharge Orders: Discharge Order (Routine); Ordered 11/14/23 Ordered By: Shoal Munoz Print Language: Welsh Care Plan Goals: recovery Health Concerns: mrsa Plan of Treatment: left ama Assessment: left ama
--- NOTE | 2023-11-14 13:26 | MHC.CM.PN ---
Patient Left [facility] 11/10/23. She returned to [facility] on 11/11/23. She left [facility] again today 11/14/23.
== END 2023-11-14 11:00 | disposition left against medical advice (07) | DRG 770 ==
LOC: HO.ED 20:24 → HO.EDOVER 23:15 → HO.IMC 11-12 07:31
PROVIDERS: Physician Assistant; Admitting Provider Student in an Organized Health Care Education/Training Program; Emergency Provider Internal Medicine; Visit Provider Internal Medicine
DX: F11.23 Opioid dependence with withdrawal (principal); G92.8 Other toxic encephalopathy; F33.3 Major depressive disorder, recurrent, severe with psychotic symptoms; R78.81 Bacteremia; D64.9 Anemia, unspecified; I47.29 Other ventricular tachycardia; B95.62 Methicillin resistant Staphylococcus aureus infection as the cause of diseases classified elsewhere; F19.10 Other psychoactive substance abuse, uncomplicated; R94.31 Abnormal electrocardiogram [ECG] [EKG]; Z91.148 Patient's other noncompliance with medication regimen for other reason; Z79.899 Other long term (current) drug therapy
CPT/HCPCS: 36415; 80048; 80053; 80202; 82565; 83605; 83690; 84702; 85025; 85027; 87040; 93005; 93306; 99285; J0696; J1170; J1650; J2060; J2405; J3360; J3370; J3371; Q9957

== ENCOUNTER → 2023-11-11 16:39 | Outpatient (BNV) | payer MEDICAID, SELFPAY | PROVIDERS: Emergency Provider Internal Medicine; Visit Provider Student in an Organized Health Care Education/Training Program | DX: F19.10 Other psychoactive substance abuse, uncomplicated (principal); Z22.322 Carrier or suspected carrier of Methicillin resistant Staphylococcus aureus | CPT/HCPCS: 99223; 99232; 99233; 99239; 99499 ==

== ENCOUNTER 2023-11-11 22:53 | Outpatient (BNV) | payer MEDICAID, SELFPAY | END 2023-11-13 07:00 | PROVIDERS: Admitting Provider Student in an Organized Health Care Education/Training Program; Emergency Provider Internal Medicine; Visit Provider Internal Medicine | DX: R78.81 Bacteremia (principal) | CPT/HCPCS: 93306 ==

== ENCOUNTER → 2023-11-11 22:53 | Outpatient (BNV) | payer MEDICAID, SELFPAY | PROVIDERS: Admitting Provider Student in an Organized Health Care Education/Training Program; Emergency Provider Internal Medicine; Visit Provider Nurse Practitioner Psychiatric/Mental Health | DX: F11.23 Opioid dependence with withdrawal (principal) | CPT/HCPCS: 99233 ==

== ENCOUNTER → 2023-11-11 22:53 | Outpatient (BNV) | payer MEDICAID, SELFPAY | PROVIDERS: Admitting Provider Student in an Organized Health Care Education/Training Program; Emergency Provider Internal Medicine; Visit Provider Internal Medicine | DX: F19.10 Other psychoactive substance abuse, uncomplicated (principal); F11.23 Opioid dependence with withdrawal | CPT/HCPCS: 99222; 99499 ==

== ENCOUNTER → 2023-11-11 22:53 | Outpatient (BNV) | payer OTHER, SELFPAY | PROVIDERS: Admitting Provider Student in an Organized Health Care Education/Training Program; Emergency Provider Internal Medicine; Visit Provider Psychiatry & Neurology Psychiatry | DX: F33.3 Major depressive disorder, recurrent, severe with psychotic symptoms (principal); F11.20 Opioid dependence, uncomplicated; A49.9 Bacterial infection, unspecified; R94.31 Abnormal electrocardiogram [ECG] [EKG] | CPT/HCPCS: 99232 ==

== ENCOUNTER 2023-11-16 08:56 | Emergency (ER) | payer MEDICAID, SELFPAY ==
[2023-11-16 09:34] VITALS: BP 107/63; PULSE 92; RESP 16; TEMP 36.5; O2SAT 97; BMI 20.6
--- NOTE | 2023-11-16 09:34 | ED.GENADULT ---
HPI - General Adult General Chief complaint: Extremity Problem Stated complaint: ANXIETY,WITHDRAWAL FROM COCAINE/HEROIN PER EMS Time Seen by Provider: 11/16/23 09:10 Source: patient, EMS and RN notes reviewed Mode of arrival: EMS Limitations: no limitations History of Present Illness ED Provider: ya HPI narrative: Patient is a 38-year-old female with history of polysubstance use, MRSA bacteremia, bipolar disorder, mood disorder presenting to the emergency department with complaint of pain and blisters to both feet. She has a history of multiple prior visits for which she has left against medical advice without completing treatment. She was recently admitted after having a witnessed seizure in the emergency department and was treated with vancomycin for 1 blood culture positive for MRSA. She left this visit on 11/13 against medical advice. Today she was noted by police to be walking down the street complaining of foot pain and was told she had a warrant out for her arrest, was given the choice to be arrest or come to the ED for evaluation. Patient chose to come to the ED for evaluation of her symptoms which the police were agreeable to. EMS reported that patient displayed bizarre behavior in the ambulance. MD complaint: foot pain Onset (ago): day(s) Location: lower extremity Quality: aching Pain Consistency: constant Relieving factors: rest Associated symptoms: denies other symptoms Treatments prior to arrival: none Related Data Home Medications ?Medication ?Instructions ?Recorded ?Confirmed methadone 10 mg/mL oral 190 mg PO DAILY 08/09/23 11/07/23 concentrate (Methadose) nicotine (polacrilex) 4 mg gum 4 mg PO QID PRN Nicotine Cravings 08/12/23 11/12/23 gabapentin 800 mg tablet 800 mg PO TID 11/03/23 11/12/23 hydroxyzine HCl 50 mg tablet 50 mg PO BID 11/03/23 11/12/23 olanzapine 5 mg tablet (Zyprexa) 5 mg PO BID 11/03/23 11/12/23 propranolol 10 mg tablet 10 mg PO BID 11/03/23 11/12/23 quetiapine 200 mg tablet (Seroquel) 200 mg PO BEDTIME 11/03/23 11/12/23 ibuprofen 600 mg tablet 600 mg PO BID PRN Pain 11/07/23 11/12/23 nicotine 21 mg/24 hr daily 1 patch topical DAILY 11/07/23 11/12/23 transdermal patch Allergies Allergy/AdvReac Type Severity Reaction Status Date / Time No Known Allergies Allergy Verified 11/16/23 09:37 [No Known Allergies*] Review of Systems Review of Systems: As per HPI. Yes all other systems are reviewed and are negative Constitutional: Constitutional: Reports as per HPI [facility] Past Medical History Medical History (Updated 11/16/23 @ 10:30 by Gail Stover NP) MDD (major depressive disorder), recurrent, severe, with psychosis Opioid use disorder, moderate, dependence Polysubstance abuse Cocaine use disorder History of drug dependence/abuse Atypical bipolar disorder Opiate withdrawal Acute anxiety Drug-induced psychotic disorder Depression PTSD (post-traumatic stress disorder) Anxiety Depression Social History Social History Household Members: Significant Other Household Members Other:: grandmother, uncle Housing: Other Housing Other:: Homeless 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: current 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 frequency: 0-2 drinks per day Alcohol type: beer, wine and hard liquor 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 Patient Tobacco Use Status: Tobacco use Unknown Tobacco use type: Cigarette Cigarette Packs Per Day: 1.5 Cigarettes Per Day: 30.0 Years Smoked: 26 Smoked in Last 30 Days: Yes e-Cigarette/Vaping Use: Never Used Second Hand Smoke Exposure: Yes Use of substances other than those prescribed or required for medical reasons: Yes Substance Use Type: Heroin Last Used Substance: Days (ago) Advance Directives: No Advance Directives Information Provided: No Do you have a plan to hurt others: No Plan service: No Current occupational status: unemployed Sexual orientation: Don't Know Physical Exam ED Vital Signs: Vital Signs - 24 hr 11/16/23 09:34 11/16/23 09:42 Temperature 97.7 F 97.7 F Pulse Rate 92 92 Respiratory Rate 16 16 Blood Pressure 107/63 107/63 Pulse Oximetry 97 100 Oxygen Delivery Method Room Air Room Air BMI result Body Mass Index 20.6 Vital signs have been reviewed and appear to be correct. Blood pressure normal. Heart rate normal. Respiratory rate normal. Temperature normal. Oxygen saturation normal. Const General: no acute distress Orientation/consciousness: oriented to person, oriented to place, oriented to time and patient oriented x3 Limitations: no limitations HENMT Head: Yes normocephalic and Yes atraumatic Ears: external ears normal General nose exam: Normal external nose present Face and sinus: Yes face symmetric Mouth: oropharynx normal and moist mucous membranes Throat: Yes uvula midline Eyes Pupils: Equal, round and reactive pupils present Neck Neck: Yes normal visual inspection and Yes supple Resp Effort & Inspection: normal respiratory effort and able to speak in complete sentences Auscultation: clear to auscultation bilaterally Cardio Rate: regular rate Rhythm: regular rhythm Heart sounds: S1 normal heart sound present and S2 normal heart sound present GI Palpation (GI): Soft to palpation and nontender Auscultation: normoactive bowel sounds General: Yes no CVA tenderness Back/Spine/Pelvis Back: no CVA tenderness Skin Other: multiple open blisters to plantar surface of bilateral feet without drainage or discharge, no surrounding warmth or erythema General skin exam: elasticity normal and turgor normal Neuro General: oriented to person, oriented to place, oriented to time, patient oriented x3, moves all extremities, no focal motor deficits and CN's II-XI intact bilaterally Cranial nerves: Yes Equal, round and reactive pupils present Cognition (Neuro): normal cognition Extrem General: Yes full ROM, Yes no pedal edema and Yes no calf tenderness Psych Mental Status: mental status grossly normal Affect: normal affect Thought process: Normal thought process present Medical Decision Making Medical Decision Making MDM Narrative: Patient is a 38-year-old female with history of polysubstance use, MRSA bacteremia, bipolar disorder, mood disorder presenting to the emergency department with complaint of pain and blisters to both feet. On exam patient is awake, A+Ox3, VS WNL, afebrile, normal neurological exam without focal deficits, physical exam findings as above. Given reported symptoms and physical exam findings, initial differential includes MRSA bacteremia, drug or alcohol intoxication/withdrawal, blisters bilateral feet. Patient stating she needs to leave against medical advice prior to labs, EKG, etc due to a court date. Patient is awake, alert, oriented x3 and ambulating with steady gait, and has the capacity to make this decision at this time. Risks of leaving against medical advice discussed with patient up to and including which patient verbalized understanding of and continues to state that she wishes to leave AMA. Patient advised that she can return to this or any ED at any time should she change her mind. Discharge Plan Discharge Clinical Impression: Blister of foot Patient Disposition: Left Against Medical Advice Instructions: Blister (ED) Additional Instructions: You were evaluated in the emergency department today for pain and blisters to your feet. You left the emergency department against medical advice prior to completion of your evaluation. You can return to the emergency department at any time if you should change her mind. Follow-up with your primary care provider. Return for any new or concerning symptoms. Prescriptions: No Action nicotine (polacrilex) 4 mg gum 4 mg PO QID PRN (Reason: Nicotine Cravings) methadone [Methadose] 10 mg/mL Concentrate 190 mg PO DAILY Patient Comments: Verfieid by clint from [facility] center for [facility]. Phone number [phone] quetiapine [Seroquel] 200 mg Tablet 200 mg PO BEDTIME olanzapine [Zyprexa] 5 mg Tablet 5 mg PO BID hydroxyzine HCl [Atarax] 50 mg Tablet 50 mg PO BID propranolol 10 mg Tablet 10 mg PO BID gabapentin 800 mg Tablet 800 mg PO TID nicotine 21 mg/24 hr patch 24 hour 1 patch topical DAILY ibuprofen 600 mg tablet 600 mg PO BID PRN (Reason: Pain) Stand Alone Forms: Against Medical Advice Print Language: Uzbek
[2023-11-16 09:42] VITALS: BP 107/63; PULSE 92; RESP 16; TEMP 36.5; O2SAT 100
--- NOTE | 2023-11-16 11:00 | PC.NURSE ---
pt declining diagnostic testing, requesting to leave AMA to go to [facility] to figure out warrant situation. pt cleaned feet w NS and applied bandaids and clean socks. aware that she hasn't been following protocol for MRSA infection, pt aware of need for treatment and will follow up. provider aware. AMA paperwork signed.
== END 2023-11-16 11:04 | disposition left against medical advice (07) ==
PROVIDERS: Emergency Provider Emergency Medicine
DX: S90.822A Blister (nonthermal), left foot, initial encounter (principal); S90.821A Blister (nonthermal), right foot, initial encounter; X58.XXXA Exposure to other specified factors, initial encounter; Y93.9 Activity, unspecified; Y92.9 Unspecified place or not applicable; Y99.9 Unspecified external cause status; Z53.29 Procedure and treatment not carried out because of patient's decision for other reasons
CPT/HCPCS: 99283; 99284

== ENCOUNTER 2023-11-17 02:58 | Emergency (ER) | payer MEDICAID, SELFPAY ==
[2023-11-17 03:38] VITALS: BP 113/77; PULSE 72; RESP 16; TEMP 36.2; O2SAT 98; BMI 21.5
--- NOTE | 2023-11-17 04:20 | ECG_ITS ---
Test Reason : QTC CHECK Blood Pressure : / mmHG Vent. Rate : 068 BPM Atrial Rate : 068 BPM P-R Int : 134 ms QRS Dur : 084 ms QT Int : 458 ms P-R-T Axes : 038 -37 004 degrees QTc Int : 487 ms Normal sinus rhythm Left axis deviation Prolonged QT Abnormal ECG When compared with ECG of 13-NOV-2023 14:52, QT has lengthened QRS axis Shifted left Referred By: Teagan Sharpe Electronically Signed By:COSME DOYLE
[2023-11-17 04:50] LABS: Basophils Percent Auto 0.5 % (0-2); Eosinophils Absolute Auto 0.2 X10*3/uL (0.0-0.4); Eosinophils Percent Auto 3.6 % (0-4); Hematocrit 33.3 % (37.0-47.0); Hemoglobin 10.4 g/dl (12.0-16.0); Imm Gran Abs Auto 0.01 X10*3/uL (0.00-0.03); Imm Gran Pct Auto 0.2 % (0.0-0.4); Lymphocytes Percent Auto 30.8 % (20-40); MANUAL DIFF FLAG NO; Mean Corpuscular HGB Conc 31.2 g/dl (31.0-35.0); Mean Corpuscular Hemoglobin 26.5 pg (27.0-33.0); Mean Corpuscular Volume 84.9 fL (80.0-98.0); Mean Platelet Volume 8.7 fL (9.4-12.3); Monocytes Absolute Auto 0.4 X10*3/uL (0.1-1.2); Monocytes Percent Auto 6.7 % (2-11); Neutrophils Absolute Auto 3.7 x10*3/uL (2.0-8.3); Neutrophils Percent Auto 58.2 % (45-73); Platelet Count 350 X10*3/uL (160-400); Red Blood Count 3.92 X10*6/uL (4.20-5.50); Red Cell Distribution Width 16.1 % (11.0-16.0); White Blood Count 6.4 X10*3/uL (4.8-10.8)
[2023-11-17 05:12] LABS: Alanine Aminotransferase 26 U/L (0-31); Albumin Level 4.2 g/dL (3.5-5.0); Alkaline Phosphatase 68 U/L (39-117); Anion Gap 17 (12-20); Aspartate Amino Transferase 33 U/L (5-31); Bilirubin Direct 0.1 mg/dL (0.0-0.5); Bilirubin Total 0.3 mg/dL (0.0-1.0); Blood Urea Nitrogen 13 mg/dL (9-16); Calcium 10.1 mg/dL (8.4-10.2); Carbon Dioxide 26 mmol/L (22-29); Chloride 101 mmol/L (96-108); Creatinine Clr Calc Pharmacy 93.6; Estimated Glomerular Filt Rate > 60; Ethanol < 10 mg/dL; Glucose Random 132 mg/dL (60-115); Lipase 12 U/L (8-78); Magnesium 2.5 mg/dL (1.6-2.6); Potassium 3.6 mmol/L (3.3-5.1); Sodium 140 mmol/L (135-145); Total Protein 7.7 g/dL (6.5-8.0)
[2023-11-17 06:00] VITALS: RESP 16
--- NOTE | 2023-11-17 06:32 | ED_ITS ---
HPI - Psych General Chief Complaint: Psychiatric Symptoms Stated Complaint: crisis suicidal Time Seen by Provider: 11/17/23 06:31 Source: patient and RN notes reviewed Mode of arrival: ambulatory Limitations: no limitations History of Present Illness ED Provider: Ela Bourgeois PA-C HPI Narrative: This is a [id number]-female, with a past medical history of polysubstance abuse, MRSA bacteremia, bipolar disorder, and mood disorder, who presents to the ER today with complaints of increased agitation as no one is medicating her with methadone. Upon my initial assessment, patient is screaming, yelling profanities, stating that no one is helping her, and we stopped her methadone. Upon reassessment, patient states that she is having bilateral foot pain. She has had multiple prior visits this past week and has left against medical advice without completing treatment. She was recently admitted after having a witnessed seizure in the emergency room, and was treated with vancomycin as she had 1 positive blood culture, she laughed against medical advice. She reported to the nurse that she wanted to see crisis today. She has no suicidal ideation. MD complaint: suicidal ideation Relieving factors: none Exacerbating factors: none Related Data Home Medications ?Medication ?Instructions ?Recorded ?Confirmed methadone 10 mg/mL oral 190 mg PO DAILY 08/09/23 11/07/23 concentrate (Methadose) gabapentin 800 mg tablet 800 mg PO TID 11/03/23 11/17/23 olanzapine 5 mg tablet (Zyprexa) 5 mg PO BID 11/03/23 11/17/23 propranolol 10 mg tablet 10 mg PO BID 11/03/23 11/17/23 baclofen 10 mg tablet 10 mg PO BID 11/17/23 11/17/23 clonazepam 0.5 mg tablet 0.5 mg PO BID 11/17/23 11/17/23 melatonin 1 mg tablet 6 mg PO BEDTIME PRN Sleep 11/17/23 11/17/23 Allergies Allergy/AdvReac Type Severity Reaction Status Date / Time No Known Allergies Allergy Verified 11/17/23 03:39 [No Known Allergies*] Review of Systems 2 Review of Systems: Yes all other systems are reviewed and are negative Constitutional: Constitutional: Reports as per [facility] Past Medical History Medical History (Updated 11/17/23 @ 13:30 by BHARAT Duran) MDD (major depressive disorder), recurrent, severe, with psychosis Opioid use disorder, moderate, dependence Polysubstance abuse Cocaine use disorder History of drug dependence/abuse Atypical bipolar disorder Opiate withdrawal Acute anxiety Drug-induced psychotic disorder Depression PTSD (post-traumatic stress disorder) Anxiety Depression Social History Social History Household Members: Significant Other Household Members Other:: grandmother, uncle Housing: Other Housing Other:: Homeless Unable to assess alcohol history related to: Refusing to respond 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: current 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 frequency: 0-2 drinks per day Alcohol type: beer, wine and hard liquor 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 Patient Tobacco Use Status: Tobacco use Unknown Tobacco use type: Cigarette Cigarette Packs Per Day: 1.5 Cigarettes Per Day: 30.0 Years Smoked: 26 Smoked in Last 30 Days: No e-Cigarette/Vaping Use: Never Used Second Hand Smoke Exposure: Yes Use of substances other than those prescribed or required for medical reasons: Refusing to respond Substance Use Type: Heroin Advance Directives: No Advance Directives Information Provided: Yes Do you have a plan to hurt others: No Plan service: No Current occupational status: unemployed Sexual orientation: Don't Know Physical Exam 2 Vital Signs: Vital Signs: Last Vital Signs Temp 97.3 F 11/17/23 13:51 Pulse 72 11/17/23 13:51 Resp 16 11/17/23 13:51 BP 113/77 11/17/23 13:51 Pulse Ox 98 11/17/23 13:51 O2 Del Method Room Air 11/17/23 13:51 BMI result Body Mass Index 21.5 Const: General: cooperative, comfortable and no acute distress O rientation/consciousness: patient oriented x3 Limitations: no limitations HEENT: Head: Yes normal to inspection, Yes normocephalic and Yes atraumatic Ears: hearing grossly normal bilaterally General nose exam: Normal external nose present Face and sinus: Yes normal facial exam Mouth: Normal oral and palatal mucosa present, oropharynx normal and moist mucous membranes Throat: Yes posterior oropharynx normal Eyes: General: appearance normal, both eyes and all related structures E yelids: Yes eyelids normal Conjunctivae: conjunctivae normal Sclerae: s clerae normal Pupils: Equal, round and reactive pupils present EOM: EOMs intact bilaterally Neck: Neck: Yes normal visual inspection, Yes full ROM and Yes no lymphadenopathy Lymphatic: no lymphadenopathy noted Chest: Chest palpation & inspection: normal inspection of the chest Resp: Effort & Inspection: normal respiratory effort and able to speak in complete sentences Auscultation: clear to auscultation bilaterally, no crackles, no rales, no rhonchi and no wheezes Cardio: Rate: regular rate Rhythm: regular rhythm Heart sounds: S1 normal heart sound present and S2 normal heart sound present GI: Inspection: Yes normal to inspection Skin: General skin exam: no rashes or lesions noted Trauma: no lacerations or abrasions Wounds: no wounds Neuro: General: patient oriented x3 and moves all extremities Cranial nerves: Yes Equal, round and reactive pupils present Extrem: General: Yes normal to inspection Right upper extremity: normal to inspection Left upper extremity: normal to inspection Right lower extremity: normal to inspection Left lower extremity: normal to inspection Course Reevaluation(s) Reevaluation #1: Patient was cleared by the care team. Patient was seen by the addiction medicine service, she was belligerent when speaking to them. There are no safety concerns. Patient does not meet medical or psychiatric admission at this time. Patient will be discharged. Patient is upset, however she is walking around the entire palm without difficulty. She left AMA, review of her records reveal that her 2nd set of blood cultures was negative. She had an echo which was normal, and she was consulted by Infectious Disease. At this point, patient is medically cleared. She refuses all addiction Medicine Services. And she is cleared by the care team therefore there is no indication to keep her here in the emergency room. Patient discharged. Time: 13:30 Medications Administered Discontinued Medications Generic Name Dose Route Start Last Admin Trade Name Radha PRN Reason Stop Dose Admin Acetaminophen 975 mg 11/17/23 08:17 11/17/23 08:58 Acetaminophen 325 Mg Tablet PO 11/17/23 08:18 975 mg ONCE ONE Administration Baclofen 10 mg 11/17/23 09:00 11/17/23 08:59 Baclofen 10 Mg Tablet PO 10 mg BID JAIR Administration Clonazepam 0.5 mg 11/17/23 09:00 11/17/23 08:58 Clonazepam 0.5 Mg Tablet PO 0.5 mg BID JAIR Administration Gabapentin 800 mg 11/17/23 09:00 11/17/23 08:59 Gabapentin 400 Mg Capsule PO Not Given TID JAIR Methadone HCl 20 mg 11/17/23 09:00 11/17/23 07:45 Methadone Hcl 20 Mg/2 Ml Oral.Conc PO 11/17/23 09:01 20 mg ONCE ONE Administration Olanzapine 5 mg 11/17/23 09:00 11/17/23 08:58 Olanzapine 5 Mg Tablet PO 5 mg BID JAIR Administration Medical Decision Making Medical Decision Making [facility] Narrative: This is a 38-year-old female who presents to the emergency department to see crisis. On arrival, patient agitated, yelling that we discontinued her methadone. On arrival, vital signs within normal limits. She has been seen here in the emergency room multiple times this month, she left AMA, she was supposed to get IV antibiotics for MRSA bacteremia Hilger to be continued until November 29. She was seen on November 16, 2023 due to pain and blisters to bilateral feet. When asked what does she want us to provide during the visit, she only yells at me stating that she is upset that her methadone was stopped. Patient was seen by ri addiction Medicine Services, the plan was to discontinue her methadone and to slowly taper her onto buprenorphine. She has a history of prolonged QTC. She last received methadone on November 12, given methadone 20 mg orally. We will medicate with methadone 20 mg, restarted all of her other medications. Awaiting care team consult. Differential Diagnosis Differential Diagnoses: The differential diagnosis associated with the presentation includes Admission/Observation Consideration of admission/observation: Escalation of care including admission/observation considered Lab Data [facility] Lab Attestation statement: I reviewed the patient's lab results. 11/17/23 04:44 11/17/23 04:45 Labs: Lab Results 11/17/23 11/17/23 11/17/23 Range/Units 04:44 04:45 09:04 WBC 6.4 (4.8-10.8) X10*3/uL RBC 3.92 L (4.20-5.50) X10*6/uL Hgb 10.4 L (12.0-16.0) g/dl Hct 33.3 L (37.0-47.0) % MCV 84.9 (80.0-98.0) fL MCH 26.5 L (27.0-33.0) pg MCHC 31.2 (31.0-35.0) g/dl RDW 16.1 H (11.0-16.0) % Plt Count 350 (160-400) X10*3/uL MPV 8.7 L (9.4-12.3) fL Immature Gran % (Auto) 0.2 (0.0-0.4) % Neut % (Auto) 58.2 (45-73) % Lymph % (Auto) 30.8 (20-40) % [place] % (Auto) 6.7 (2-11) % Eos % (Auto) 3.6 (0-4) % Baso % (Auto) 0.5 (0-2) % Lymph # (Auto) 2.0 (1.2-4.9) X10*3/uL [place] # (Auto) 0.4 (0.1-1.2) X10*3/uL Eos # (Auto) 0.2 (0.0-0.4) X10*3/uL Baso # (Auto) 0.0 (0.0-0.2) X10*3/uL Abs Immat Gran (auto) 0.01 (0.00-0.03) X10*3/uL Absolute Neuts (auto) 3.7 (2.0-8.3) x10*3/uL Absolute Nucleated RBC 0.000 (0.0-0.012) X10*3/uL Nucleated RBC % (auto) 0.0 (0.0-0.2) /100WBC Sodium 140 (135-145) mmol/L Potassium 3.6 (3.3-5.1) mmol/L Chloride 101 (96-108) mmol/L Carbon Dioxide 26 (22-29) mmol/L Anion Gap 17 (12-20) BUN 13 (9-16) mg/dL Creatinine 0.77 (0.5-1.4) mg/dL Estim Creat Clear Calc 93.6 Estimated GFR > 60 Random Glucose 132 H (60-115) mg/dL Calcium 10.1 D (8.4-10.2) mg/dL Magnesium 2.5 (1.6-2.6) mg/dL Total Bilirubin 0.3 (0.0-1.0) mg/dL Direct Bilirubin 0.1 (0.0-0.5) mg/dL AST 33 H (5-31) U/L ALT 26 (0-31) U/L Alkaline Phosphatase 68 (39-117) U/L Total Protein 7.7 (6.5-8.0) g/dL Albumin 4.2 (3.5-5.0) g/dL Lipase 12 (8-78) U/L Urine Color Yellow Urine Appearance Cloudy Urine pH 6.5 (5.0-9.0) Ur Specific [place] 1.025 (1.005-1.025) Urine Protein Trace (Neg-Trace) mg/dL Urine Glucose (UA) Negative (Negative) mg/dL Urine Ketones Negative (Negative) mg/dL Urine Blood Negative (Negative) Urine Nitrite Negative (Negative) Ur Leukocyte Esterase Moderate (2+) H (Negative) Urine RBC 0-2 (0-2) /HPF Urine WBC 11-20 H (0-5) /HPF Ur Squamous Epith Cells 6-10 (0-2) /HPF Urine Bacteria Trace (None Seen) Hyaline Casts 0-2 (0-2) /LPF Urine Opiates Screen POSITIVE H (Not Detect) Ur Buprenorphine Scrn Not Detected (Not Detect) ng/mL Ur Oxycodone Screen Positive H (Not Detect) ng/mL Urine Methadone Screen Positive H (Not Detect) ng/mL Urine Fentanyl Screen POSITIVE H (Not Detect) Ur Barbiturates Screen Not Detected (Not Detect) Ur Phencyclidine Scrn Not Detected (Not Detect) Ur Amphetamines Screen Not Detected (Not Detect) U Benzodiazepines Scrn POSITIVE H (Not Detect) Urine Cocaine Screen POSITIVE H (Not Detect) U Marijuana (THC) Screen Not Detected (Not Detect) Ethyl Alcohol < 10 mg/dL Radiology Impression Discussion of test interpretation with radiology: I have reviewed the radiologist's reading. External Record Review External record reviewed: Inpatient record, Office record, Outpatient record, Prior outpatient labs, Prior outpatient radiology, Primary care record and Outside ED record Discharge Plan Discharge Clinical Impression: Depression, Opioid use disorder, moderate, dependence Patient Disposition: Home, Self-Care Instructions: Opioid Use Disorder (ED) Additional Instructions: You were seen in the emergency department today. You refused services from the addiction medicine service team. You may follow-up at [facility], they take walk-ins in the morning. Please take prescribed medications as directed. Fatty new or worsening symptoms occur including but not limited to chest pain, shortness of breath, please return for re-evaluation. Prescriptions: No Action methadone [Methadose] 10 mg/mL Concentrate 190 mg PO DAILY Patient Comments: Verfieid by clint from [facility] center [facility]. Phone number [phone] olanzapine [Zyprexa] 5 mg Tablet 5 mg PO BID propranolol 10 mg Tablet 10 mg PO BID gabapentin 800 mg Tablet 800 mg PO TID clonazepam 0.5 mg Tablet 0.5 mg PO BID baclofen 10 mg Tablet 10 mg PO BID melatonin 1 mg Tablet 6 mg PO BEDTIME PRN (Reason: Sleep) Interventions: Elton-Suicide Risk Severity Scale Last Done: 11/17/23 05:15 ED Discharge Assessment Last Done: 11/17/23 13:51 Discharge Date/Time: 11/17/23 13:55 Print Language: Greenlandic
--- NOTE | 2023-11-17 07:38 | PC.NURSE ---
Assumed care of patient at 0645, patient appears to be restless in her room, occasionally stirring, waking up when staff enters her room, she begins crying but promptly stops when staff exits her room. Patient is pending CARE team assessment at this time
[2023-11-17] MEDS: methADONE HCl 20 MG/2 ML ORAL.CONC PO (07:45)
[2023-11-17] MEDS: clonazePAM 0.5 MG TABLET PO (08:58)
[2023-11-17] MEDS: OLANZapine 5 MG TABLET PO (08:58)
[2023-11-17] MEDS: Acetaminophen 325 MG TABLET 975 MG PO (08:58)
[2023-11-17] MEDS: Baclofen 10 MG TABLET PO (08:59)
[2023-11-17 09:12] LABS: Appearance Urine Cloudy; Color Urine Yellow; Glucose Urine UA Negative (Negative); Leukocyte Esterase Urine Moderate (2+) (Negative); Nitrite Urine Negative (Negative); PH 6.5 (5.0-9.0); Specific Gravity - Urine 1.025 (1.005-1.025); UMIC TRIGGER UACC YES; Urine Blood Negative (Negative); Urine Ketones Negative (Negative); Urine Protein Trace mg/dL (Neg-Trace)
[2023-11-17 09:15] LABS: Bacteria Urine Trace (None Seen); Hyaline Casts Urine 0-2 /LPF (0-2); RBC Urine 0-2 /HPF (0-2); UACC Culture Trigger YES
[2023-11-17 09:20] LABS: Amphetamine Screen Urine Not Detected (Not Detect); Barbiturates, Urine Not Detected (Not Detect); Benzodiazepines Screen Urine POSITIVE (Not Detect); Buprenorphine Scr Not Detected (Not Detect); Cannabinoid Screen Urine Not Detected (Not Detect); Cocaine Screen Urine POSITIVE (Not Detect); Fentanyl, urine POSITIVE (Not Detect); Methadone Screen, Urine Positive (Not Detect); Opiate Screen Urine POSITIVE (Not Detect); Oxycodone Screen Urine Positive (Not Detect); Phencyclidine Screen Urine Not Detected (Not Detect)
[2023-11-17 13:51] VITALS: BP 113/77; PULSE 72; RESP 16; TEMP 36.3; O2SAT 98
--- NOTE | 2023-11-17 13:54 | MHC.RECOVRN ---
Attempted to meet with pt in [facility] after cleared by CARE Team and expressing interest in ATS. Pt laying in bed, asleep, difficult to wake. When pt does awaken, very difficult to engage in conversation due to yelling profanities and anger. Pt made aware t/w will not tolerate being yelled at and t/w exited the room. Discussed with CARE Team as well as provider. Pt encouraged to present as walk in to [facility] if interested in ATS.
== END 2023-11-17 13:55 | disposition home or self-care (01) ==
PROVIDERS: Emergency Medicine; Physician Assistant Medical; Emergency Provider Emergency Medicine
DX: F33.1 Major depressive disorder, recurrent, moderate (principal); F11.20 Opioid dependence, uncomplicated; R94.31 Abnormal electrocardiogram [ECG] [EKG]; Z79.899 Other long term (current) drug therapy
CPT/HCPCS: 36415; 80048; 80076; 80307; 81001; 83690; 83735; 85025; 87086; 93005; 99284; 99285; S9485

== ENCOUNTER 2023-11-21 20:42 | Emergency (ER) | payer MEDICAID, SELFPAY ==
--- NOTE | 2023-11-21 20:43 | ED.PSYCH ---
HPI - Psych General Stated Complaint: SI/seeking help Related Data Home Medications ?Medication ?Instructions ?Recorded ?Confirmed methadone 10 mg/mL oral 190 mg PO DAILY 08/09/23 11/07/23 concentrate (Methadose) gabapentin 800 mg tablet 800 mg PO TID 11/03/23 11/17/23 olanzapine 5 mg tablet (Zyprexa) 5 mg PO BID 11/03/23 11/17/23 propranolol 10 mg tablet 10 mg PO BID 11/03/23 11/17/23 baclofen 10 mg tablet 10 mg PO BID 11/17/23 11/17/23 clonazepam 0.5 mg tablet 0.5 mg PO BID 11/17/23 11/17/23 melatonin 1 mg tablet 6 mg PO BEDTIME PRN Sleep 11/17/23 11/17/23 Allergies Allergy/AdvReac Type Severity Reaction Status Date / Time No Known Allergies Allergy Verified 11/17/23 03:39 [No Known Allergies*] [facility] Past Medical History Medical History (Updated 11/18/23 @ 00:02 by Background Elin) MDD (major depressive disorder), recurrent, severe, with psychosis Opioid use disorder, moderate, dependence Polysubstance abuse Cocaine use disorder History of drug dependence/abuse Atypical bipolar disorder Opiate withdrawal Acute anxiety Drug-induced psychotic disorder Depression PTSD (post-traumatic stress disorder) Anxiety Depression Social History Social History Household Members: Significant Other Household Members Other:: grandmother, uncle Housing: Other Housing Other:: Homeless Unable to assess alcohol history related to: Refusing to respond 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: current 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 frequency: 0-2 drinks per day Alcohol type: beer, wine and hard liquor 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 Patient Tobacco Use Status: Tobacco use Unknown Tobacco use type: Cigarette Cigarette Packs Per Day: 1.5 Cigarettes Per Day: 30.0 Years Smoked: 26 e-Cigarette/Vaping Use: Never Used Second Hand Smoke Exposure: Yes Substance Use Type: Heroin service: No Current occupational status: unemployed Sexual orientation: Don't Know Course Course Course Narrative: This is a rapid medical exam. Deferred additional HPI, ROS, PE to primary provider. 38 yo female with history of polysubstance use, PTSD, bipolar disorder here with complaints of SI with plan to OD Patient reports she is homeless, found out the father of her children recently. Also having chest pain Discharge Plan Discharge Prescriptions: No Action methadone [Methadose] 10 mg/mL Concentrate 190 mg PO DAILY Patient Comments: Verfieid by clint from [facility] center for [facility]. Phone number [phone] olanzapine [Zyprexa] 5 mg Tablet 5 mg PO BID propranolol 10 mg Tablet 10 mg PO BID gabapentin 800 mg Tablet 800 mg PO TID clonazepam 0.5 mg Tablet 0.5 mg PO BID baclofen 10 mg Tablet 10 mg PO BID melatonin 1 mg Tablet 6 mg PO BEDTIME PRN (Reason: Sleep) Print Language: Stateless
[2023-11-21 20:44] VITALS: BP 120/76; PULSE 86; RESP 20; TEMP 37.2; O2SAT 100; BMI 22.3
--- NOTE | 2023-11-21 20:45 | ECG_ITS ---
Test Reason : CHEST PAIN Blood Pressure : / mmHG Vent. Rate : 079 BPM Atrial Rate : 079 BPM P-R Int : 124 ms QRS Dur : 084 ms QT Int : 400 ms P-R-T Axes : 055 -28 040 degrees QTc Int : 458 ms Normal sinus rhythm Normal ECG When compared with ECG of 17-NOV-2023 04:24, QT has shortened QRS axis Shifted right Referred By: Marlene Contreras Electronically Signed By:COSME DOYLE
--- NOTE | 2023-11-21 21:10 | ED.PSYCH ---
HPI - Psych General Chief Complaint: Psychiatric Symptoms Stated Complaint: SI/seeking help Time Seen by Provider: 11/21/23 21:03 Source: patient Mode of arrival: ambulatory Limitations: no limitations History of Present Illness ED Provider: Dr. Delicia Ulloa HPI Narrative: Patient comes to the emergency room complaining of suicidal ideation, planning to intentional overdose to commit suicide. Patient states that her goal in life his to get off medications, seems that patient is noncompliant with her medications since she is homeless. Patient reported that her children's father recently . She reports using crack and marijuana prior to arrival. Denies HI Related Data Home Medications ?Medication ?Instructions ?Recorded ?Confirmed gabapentin 800 mg tablet 800 mg PO TID 11/03/23 11/21/23 olanzapine 5 mg tablet (Zyprexa) 5 mg PO BID 11/03/23 11/21/23 propranolol 10 mg tablet 10 mg PO BID 11/03/23 11/21/23 baclofen 10 mg tablet 10 mg PO BID 11/17/23 11/21/23 clonazepam 0.5 mg tablet 0.5 mg PO BID 11/17/23 11/21/23 melatonin 1 mg tablet 6 mg PO BEDTIME PRN Sleep 11/17/23 11/21/23 Allergies Allergy/AdvReac Type Severity Reaction Status Date / Time No Known Allergies Allergy Verified 11/21/23 20:46 [No Known Allergies*] Review of Systems Review of Systems: Constitutional : No Weight loss, No Fever, No Chills, No Night Sweats, No Fatigue, No Malaise ENT/Mouth : No Hearing loss, No Ear Pain, No Nasal Congestion, No Sinus Pain, No Hoarseness, No sore throat, No Rhinorrhea, No Swallowing Difficulty Eyes: No Eye Pain, No Swelling, No Redness, No Foreign Body, No Discharge, No Vision Changes Cardiovascular : No Chest Pain, No SOB, No Dyspnea on Exertion, No Orthopnea, No Edema, No Palpitations Respiratory : No Cough, No Sputum, No Wheezing, No Smoke Exposure, No Dyspnea Gastrointestinal : No Nausea, No Vomiting, No Diarrhea, No Constipation, No abdominal Pain, No Hematochezia, No Melena Genitourinary : no irregular bleeding, No Dysuria, No Urinary Frequency, No Hematuria, No Urinary Incontinence, No Urgency, No Flank Pain, No Urinary Flow Changes, No Hesitancy Musculoskeletal : No joint pain, No Myalgias, No Joint Swelling Skin : No Skin Lesions, No rash Neuro : No Weakness, No Numbness, No Paresthesias, No Loss of Consciousness, No Dizziness, No Headache Psych : Complaining of anxiety, depression, SI, no HI, admits to polysubstance abuse Heme/Lymph: No Bruising, No Bleeding,No Lymphadenopathy Endocrine : No Polyuria, No Polydipsia, No Temperature Intolerance PMF Past Medical History Medical History MDD (major depressive disorder), recurrent, severe, with psychosis Opioid use disorder, moderate, dependence Polysubstance abuse Cocaine use disorder History of drug dependence/abuse Atypical bipolar disorder Opiate withdrawal Acute anxiety Drug-induced psychotic disorder Depression PTSD (post-traumatic stress disorder) Anxiety Depression Social History Social History Household Members: Significant Other Household Members Other:: grandmother, uncle Housing: Other Housing Other:: Homeless Unable to assess alcohol history related to: Refusing to respond 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: current 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 frequency: 0-2 drinks per day Alcohol type: beer, wine and hard liquor 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 Patient Tobacco Use Status: Tobacco use Unknown Tobacco use type: Cigarette Cigarette Packs Per Day: 1.5 Cigarettes Per Day: 30.0 Years Smoked: 26 e-Cigarette/Vaping Use: Never Used Second Hand Smoke Exposure: Yes Substance Use Type: Heroin Do you have a plan to hurt others: No Plan service: No Current occupational status: unemployed Sexual orientation: Don't Know Physical Exam Vital Signs: Vital Signs: Last Vital Signs Temp 98.9 F 11/21/23 20:44 Pulse 86 11/21/23 20:44 Resp 20 11/21/23 20:44 BP 120/76 11/21/23 20:44 Pulse Ox 100 11/21/23 20:44 O2 Del Method Room Air 11/21/23 20:44 BMI result Body Mass Index 22.3 Const: Other: Appearance: Alert. Oriented X3. No acute distress. Eyes: Pupils equal, round and reactive to light. ENT: Pharynx normal. Neck: Normal inspection. Neck supple. No lymph nodes noted. No crepitus CVS: Normal heart rate and rhythm. Pulses normal. Normal S1 and S2 Respiratory: No respiratory distress. Breath sounds normal. No Wheezing. No rales Abdomen: Soft and nontender. No rigidity. No distention. Skin: Skin warm and dry. Normal skin color. Normal skin turgor. Extremities: No lower extremity edema. No Lacerations. No Rash Neuro: Oriented X 3. No motor deficit. No sensory deficit. Moving all extremities. No slurred speech. CN 2 through 12 grossly intact Psych: calm, cooperative, normal affect Course Course Course Narrative: -all of patient's labs pending -patient admitting to being suicidal, patient on a Section 12 -care team consult pending -physician observation started at 21:15 Medical Decision Making Differential Diagnosis Differential Diagnoses: The differential diagnosis associated with the presentation includes (Anxiety, depression, suicidal ideation, polysubstance abuse, homeless) Admission/Observation Consideration of admission/observation: Escalation of care including admission/observation considered (Patient is on a Section 12 waiting for the care team for evaluation to determine disposition) Critical Care Time Critical Care Time Critical Care Time: Yes Total Critical Care Time: 35 Attestation: I have personally provided critical care time. Time includes review of lab data, radiology results, discussion with consultants, and monitoring for potential decompensation. Intervention performed as documented. Discharge Plan Discharge Clinical Impression: Polysubstance abuse, Suicide ideation Patient Disposition: Still a Patient Prescriptions: No Action olanzapine [Zyprexa] 5 mg Tablet 5 mg PO BID propranolol 10 mg Tablet 10 mg PO BID gabapentin 800 mg Tablet 800 mg PO TID clonazepam 0.5 mg Tablet 0.5 mg PO BID baclofen 10 mg Tablet 10 mg PO BID melatonin 1 mg Tablet 6 mg PO BEDTIME PRN (Reason: Sleep) Print Language: Emirati
[2023-11-21 21:20] LABS: MANUAL DIFF FLAG NO
[2023-11-21 21:21] LABS: Basophils Percent Auto 0.4 % (0-2); Eosinophils Absolute Auto 0.1 X10*3/uL (0.0-0.4); Eosinophils Percent Auto 1.1 % (0-4); Hematocrit 30.4 % (37.0-47.0); Hemoglobin 9.6 g/dl (12.0-16.0); Imm Gran Abs Auto 0.03 X10*3/uL (0.00-0.03); Imm Gran Pct Auto 0.4 % (0.0-0.4); Lymphocytes Absolute Auto 2.2 X10*3/uL (1.2-4.9); Mean Corpuscular HGB Conc 31.6 g/dl (31.0-35.0); Mean Corpuscular Volume 85.4 fL (80.0-98.0); Mean Platelet Volume 8.6 fL (9.4-12.3); Monocytes Absolute Auto 0.5 X10*3/uL (0.1-1.2); Monocytes Percent Auto 5.6 % (2-11); Neutrophils Absolute Auto 5.6 x10*3/uL (2.0-8.3); Neutrophils Percent Auto 66.5 % (45-73); Platelet Count 341 X10*3/uL (160-400); Red Blood Count 3.56 X10*6/uL (4.20-5.50); Red Cell Distribution Width 16.5 % (11.0-16.0); White Blood Count 8.5 X10*3/uL (4.8-10.8)
[2023-11-21 21:38] LABS: Alanine Aminotransferase 37 U/L (0-31); Albumin Level 4.6 g/dL (3.5-5.0); Alkaline Phosphatase 66 U/L (39-117); Anion Gap 15 (12-20); Aspartate Amino Transferase 69 U/L (5-31); Bilirubin Direct 0.2 mg/dL (0.0-0.5); Bilirubin Total 0.7 mg/dL (0.0-1.0); Blood Urea Nitrogen 16 mg/dL (9-16); Carbon Dioxide 25 mmol/L (22-29); Chloride 99 mmol/L (96-108); Creatinine Clr Calc Pharmacy 79.1; Estimated Glomerular Filt Rate > 60; Ethanol < 10 mg/dL; Glucose Random 117 mg/dL (60-115); Potassium 3.7 mmol/L (3.3-5.1); Sodium 135 mmol/L (135-145)
[2023-11-21 21:42] LABS: Troponin-I High Sensitivity 3.6 ng/L (<3.5-17.0)
[2023-11-21 22:27] LABS: Appearance Urine Cloudy; Color Urine Dark Yellow; Glucose Urine UA Negative (Negative); Leukocyte Esterase Urine Trace (Negative); Nitrite Urine Negative (Negative); PH 5.5 (5.0-9.0); Specific Gravity - Urine >= 1.030 (1.005-1.025); UMIC TRIGGER UA YES; Urine Blood Negative (Negative); Urine Ketones Trace mg/dL (Negative); Urine Protein 30 (1+) mg/dL (Neg-Trace)
[2023-11-21 22:28] LABS: UPreg QC Valid YES; Urine Pregnancy NEGATIVE (NEGATIVE)
[2023-11-21 22:32] LABS: Bacteria Urine 1+ (None Seen); RBC Urine 0-2 /HPF (0-2)
[2023-11-21 22:35] LABS: Amphetamine Screen Urine Not Detected (Not Detect); Barbiturates, Urine Not Detected (Not Detect); Benzodiazepines Screen Urine Not Detected (Not Detect); Buprenorphine Scr Not Detected (Not Detect); Cannabinoid Screen Urine Not Detected (Not Detect); Cocaine Screen Urine POSITIVE (Not Detect); Fentanyl, urine POSITIVE (Not Detect); Methadone Screen, Urine Positive (Not Detect); Opiate Screen Urine POSITIVE (Not Detect); Oxycodone Screen Urine Not Detected (Not Detect); Phencyclidine Screen Urine Not Detected (Not Detect)
[2023-11-22 00:33] VITALS: BP 96/66; PULSE 86
[2023-11-22] MEDS: Gabapentin 400 MG CAPSULE 800 MG PO ×4 (00:33→21:43)
[2023-11-22] MEDS: Baclofen 10 MG TABLET PO ×3 (00:33→21:42)
[2023-11-22] MEDS: Melatonin 3 MG TABLET 6 MG PO ×2 (00:33→21:43)
[2023-11-22] MEDS: Propranolol HCL 10 MG TABLET PO ×2 (00:33→21:42)
[2023-11-22] MEDS: clonazePAM 0.5 MG TABLET PO ×3 (00:33→21:43)
[2023-11-22] MEDS: OLANZapine 5 MG TABLET PO ×3 (00:33→21:43)
[2023-11-22 00:38] VITALS: BP 96/66; PULSE 86; RESP 16; TEMP 37; O2SAT 96
[2023-11-22] MEDS: methADONE HCl 20 MG/2 ML ORAL.CONC PO (01:10)
--- NOTE | 2023-11-22 06:18 | PC.NURSE ---
Patient slept through the night, patient did some yelling and screaming in the beginning of the night which is patient's typical behavior, however calmed after medication, meds and meals compliant, care consult ordered pending evaluation, provider sectioned patient for SI, VSS, will continue to monitor
--- NOTE | 2023-11-22 07:04 | PC.NURSE ---
Assumed care of patient at 0645, patient appears to be sleeping, respirations even and unlabored, no apparent distress noted. Continue plan of care for CARE team addi
[2023-11-22 08:14] VITALS: BP 101/50; PULSE 72
--- NOTE | 2023-11-22 15:49 | MHC.CARE ---
Patient evaluated by the CARE Team, disposition determined to be detox level of care. ED provider, Dr. Sharpe updated.
[2023-11-22 16:17] VITALS: RESP 14
--- NOTE | 2023-11-22 19:11 | MHC.CARE ---
Patient referred to [facility], they are aware of patient and her cardiac issues and plan to transition MAT. Facility will consider her for admission tomorrow after reviewing with attending MD. Recovery to resend referral packet (in CARE office) and coordinate with detox. Flower Donohue consulted and will prescribe as needed while patient is in the ED Patient is not here on a Section 12A ED provider, Dr. Delarosa updated
--- NOTE | 2023-11-22 19:16 | PC.NURSE ---
patient appears to remain at rest at present respirations are even and unlabored patient appears in no distress.
--- NOTE | 2023-11-22 19:19 | P.EN_ITS ---
Event Note Date of Service: 11/22/23 Event Note: Addiction Note Patient in area of ED awaiting placement to ATS Discussed with LUKE, who evaluated and cleared patient from crisis perspective. She recieved methadone 20mg overnight. Due to previous admission with EKG changes including prolonged QT and polymorph ic ventricular tachycardia, unable to resume methadone. Plan has been to transition to buprenorphine. Week of 11/15 Case discussed with OTP provider at [facility] and he is agreeable with plan. OTP is also in the same system as [facility] DELONG, so cardiac concern and plan for transition to buprenorphine also communicated with them. Plan: -oxycodone 20mg [id number]-trat for sedation -per LUKE, [facility] provider will review case in the morning -avoid methadone --she may have any other full agonist as needed to address withdrawal sx. Patient has a significant opioid tolerance (previous methadone dose was 190mg) -continue to provide reassurance as patient is likely experiencing significant discomfort related to opioid withdrawal Time Spent With Patient Time: Total time managing care of this patient today ____ minutes.
--- NOTE | 2023-11-22 19:26 | PC.NURSE ---
patient appears to remain at rest presently, t/w was just notified that client is being followed by recovery here to transition off methadone and onto suboxone ... will monitor patient for tolerance and safety.
[2023-11-22 21:35] VITALS: BP 111/81; PULSE 92; RESP 16; TEMP 36.5; O2SAT 96
[2023-11-22 21:42] VITALS: BP 111/81
[2023-11-22] MEDS: oxyCODONE HCl Immed Release 5 MG TABLET 20 MG PO (21:43)
[2023-11-23] MEDS: oxyCODONE HCl Immed Release 5 MG TABLET 20 MG PO (07:24)
[2023-11-23] MEDS: Propranolol HCL 10 MG TABLET PO (09:08)
[2023-11-23] MEDS: Baclofen 10 MG TABLET PO (09:08)
[2023-11-23] MEDS: OLANZapine 5 MG TABLET PO (09:09)
[2023-11-23] MEDS: clonazePAM 0.5 MG TABLET PO (09:09)
[2023-11-23] MEDS: Gabapentin 400 MG CAPSULE 800 MG PO (09:09)
--- NOTE | 2023-11-23 10:22 | MHC.RECOVRN ---
Pt accepted to [facility]. Will be transported via [facility].
[2023-11-23] MEDS: Acetaminophen 325 MG TABLET 975 MG PO (11:04)
[2023-11-23] MEDS: Sulfamethox/Trimeth 800/160 TABLET 1 TAB PO (11:04)
[2023-11-23 11:23] VITALS: BP 111/81; PULSE 72; RESP 16; TEMP 36.5; O2SAT 96
== END 2023-11-23 11:32 | disposition home or self-care (01) ==
PROVIDERS: Nurse Practitioner Family; Emergency Provider Emergency Medicine
DX: F19.10 Other psychoactive substance abuse, uncomplicated (principal); R45.851 Suicidal ideations; F11.20 Opioid dependence, uncomplicated; F33.3 Major depressive disorder, recurrent, severe with psychotic symptoms; F43.10 Post-traumatic stress disorder, unspecified; Z59.00 Homelessness unspecified; Z91.148 Patient's other noncompliance with medication regimen for other reason
CPT/HCPCS: 36415; 80048; 80076; 80307; 81001; 81025; 84484; 85025; 87070; 87077; 87147; 87186; 87205; 93005; 99285; S9485

== ENCOUNTER 2023-11-24 13:46 | Emergency (ER) | payer MEDICAID, SELFPAY ==
--- NOTE | ~2023-11-24 | XR_ITS ---
EXAMINATION: XR FOOT, LEFT CLINICAL INFORMATION: Pain COMPARISON: None available. TECHNIQUE: AP, lateral, and oblique views of the left foot. FINDINGS: No fracture, dislocation or destructive process. XR/XR foot LT 2V IMPRESSION: Negative Electronically signed by: Albert Bazzi MD 11/24/2023 02:53 PM EDT
[2023-11-24 13:49] VITALS: BP 123/80; PULSE 85; RESP 18; TEMP 36.4; O2SAT 94; BMI 23.6
--- NOTE | 2023-11-24 13:49 | ED_ITS ---
HPI - General Adult General Chief complaint: General Medical Stated complaint: STD, infection back of neck Time Seen by Provider: 11/24/23 13:54 Source: patient Mode of arrival: ambulatory Limitations: no limitations History of Present Illness ED Provider: Najma PARRA HPI narrative: 38-year-old female history STD exposures, polysubstance abuse, MRSA, PTSD, bipolar disorder presenting to the emergency department requesting treatment for gonorrhea she reports her partners currently positive and she is having foul smelling chunky vaginal discharge ongoing for the past few days. Patient would also like her left foot evaluated, she reports it has been swollen and hurting she has been walking a lot lately and this is what is causing her pain. She just wants to make sure it is okay. Denies numbness, tingling, fevers, chills, chest pain, shortness of breath, nausea, vomiting, abdominal pain, headache, vision changes, dizziness weakness. Patient did walk here. Related Data Home Medications ?Medication ?Instructions ?Recorded ?Confirmed gabapentin 800 mg tablet 800 mg PO TID 11/03/23 11/21/23 olanzapine 5 mg tablet (Zyprexa) 5 mg PO BID 11/03/23 11/21/23 propranolol 10 mg tablet 10 mg PO BID 11/03/23 11/21/23 baclofen 10 mg tablet 10 mg PO BID 11/17/23 11/21/23 clonazepam 0.5 mg tablet 0.5 mg PO BID 11/17/23 11/21/23 melatonin 1 mg tablet 6 mg PO BEDTIME PRN Sleep 11/17/23 11/21/23 Previous Rx's ?Medication ?Instructions ?Recorded clotrimazole 1 % topical cream 1 appl topical BID 4 weeks #45 11/23/23 grams sulfamethoxazole 800 1 tab PO BID #20 tabs 11/23/23 mg-trimethoprim 160 mg tablet (Bactrim DS) doxycycline hyclate 100 mg capsule 100 mg PO BID 7 days #14 caps 11/24/23 metronidazole 500 mg tablet 500 mg PO BID 7 days #14 tabs 11/24/23 Allergies Allergy/AdvReac Type Severity Reaction Status Date / Time No Known Allergies Allergy Verified 11/24/23 13:51 [No Known Allergies*] Review of Systems Review of Systems: Yes all other systems are reviewed and are negative PMFSH Past Medical History Attestation statement: The following information was validated with the patient. Source: old records reviewed and nursing notes reviewed Medical History MDD (major depressive disorder), recurrent, severe, with psychosis Opioid use disorder, moderate, dependence Polysubstance abuse Cocaine use disorder History of drug dependence/abuse Atypical bipolar disorder Opiate withdrawal Acute anxiety Drug-induced psychotic disorder Depression PTSD (post-traumatic stress disorder) Anxiety Depression Social History Social History Household Members: Significant Other Household Members Other:: grandmother, uncle Housing: Other Housing Other:: Homeless Unable to assess alcohol history related to: Refusing to respond 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: current 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 frequency: 0-2 drinks per day Alcohol type: beer, wine and hard liquor 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 Patient Tobacco Use Status: Tobacco use Unknown Tobacco use type: Cigarette Cigarette Packs Per Day: 1.5 Cigarettes Per Day: 30.0 Years Smoked: 26 e-Cigarette/Vaping Use: Never Used Second Hand Smoke Exposure: Yes Substance Use Type: Crack/Cocaine, Heroin, IV Drugs and Opiates Do you have a plan to hurt others: No Plan service: No Current occupational status: unemployed Sexual orientation: Don't Know Physical Exam ED Vital Signs: Vital Signs - 24 hr 11/24/23 13:49 Temperature 97.6 F Pulse Rate 85 Respiratory Rate 18 Blood Pressure 123/80 Pulse Oximetry 94 Oxygen Delivery Method Room Air BMI result Body Mass Index 23.6 vss Appearance: Alert.? Oriented X3.? No acute cardiopulmonary distress distress.? Head: Normocephalic, atraumatic, no step-offs or deformities Neck: Normal inspection.? Neck supple.? CVS: Pulses normal.? Respiratory: No respiratory distress.? Skin: ? Normal skin color. Extremities: 5/5 strength to bilateral upper and lower extremities bilateral lower extremities appear normal normal distal sensation. Pulses unremarkable 2+ equal bilateral CP, anterior tib posterior tib. Ambulating into triage without difficulty Back: No midline tenderness, no C-spine tenderness, full range of motion, No CVA tenderness bilaterally Neuro: Oriented X 3.? No motor deficit.? No sensory deficit. Course Reevaluation(s) Reevaluation #1: Educated patient on diagnosis and treatment plan, answered all question, patient verbalizes understanding. At this time patient will be discharged home, advised to return with new or worsening symptoms. Educated on worrisome signs and symptoms and when to return. At this time I feel comfortable discharge home. Time: 13:59 Medical Decision Making Medical Decision Making [facility] Narrative: [id number] 38-year-old female presents for STD check and would like her left foot checked out. Physical exam benign History and physical exam concerning for gonorrhea versus chlamydia. Also concern for overuse of left foot versus osteoarthritis versus gout versus inflammatory arthritis. Unlikely fracture, dislocation neurovascular compromise acute threat to [place], venous or arterial occlusion. Plan will treat here for gonorrhea, patient will receive doxycycline and metronidazole. Patient agrees to prophylactic treatment for gonorrhea, chlamydia and trichomonas. 500mg IM ceftriaxone has been given here and scripts for doxycycline 100 mg po BID X 7 days and metronidazole 500 mg po BID X 7 days have been given to the patient. Educated on safe sex practices, full pannel STD testing and speaking to? partners on possible STD. Differential Diagnosis Differential Diagnoses: The differential diagnosis associated with the presentation includes History and physical exam concerning for gonorrhea versus chlamydia. Also concern for overuse of left foot versus osteoarthritis versus gout versus inflammatory arthritis. Unlikely fracture, dislocation neurovascular compromise acute threat to [place], venous or arterial occlusion. Admission/Observation Consideration of admission/observation: Escalation of care including admission/observation considered No indication Lab Data [facility] Lab Attestation statement: I reviewed the patient's lab results. Discharge Plan Discharge Clinical Impression: STD exposure, Foot pain, left Patient Disposition: Home, Self-Care Instructions: Chlamydia (ED), Sexually Transmitted Diseases (ED), Safe Sex Practices (ED) Additional Instructions: Take your medications as prescribed. If you were prescribed antibiotics today, it is important that you take your medication to their entirety, do not skip any doses, do not finish them early. Follow-up with your primary care provider this week. Return to the emergency department with new or worsening symptoms. In case of emergency call 911 You were treated here today with ceftriaxone, a medication that treats gonorrhea. I have sent to your pharmacy Metronidazole that covers trichomonas, and Doxycycline which covers for chlamydia. Please be reevaluated by a healthcare provider after completing your antibiotics. Do not stop them early, do not skip any doses. Until you are reevaluated by a health care provider please practice safe sex as disucussed. Please also have a conversation with your sexual partners.? I also advise you to obtain full panel STD testing to test for other STDs including HIV, Hepatitis B & C and syphilis with your PCP or a local clinic. Prescriptions: New doxycycline hyclate 100 mg capsule 100 mg PO BID 7 Days Qty: 14 0RF metronidazole 500 mg tablet 500 mg PO BID 7 Days Qty: 14 0RF No Action olanzapine [Zyprexa] 5 mg Tablet 5 mg PO BID propranolol 10 mg Tablet 10 mg PO BID gabapentin 800 mg Tablet 800 mg PO TID clonazepam 0.5 mg Tablet 0.5 mg PO BID baclofen 10 mg Tablet 10 mg PO BID melatonin 1 mg Tablet 6 mg PO BEDTIME PRN (Reason: Sleep) sulfamethoxazole-trimethoprim [Bactrim DS] 800-160 mg tablet 1 tab PO BID Qty: 20 0RF clotrimazole 1 % cream 1 appl topical BID 28 Days Qty: 45 0RF Rx Instructions: apply to neck lesion Referrals: Physician,None [Primary Care Provider] - 2 days Print Language: German
[2023-11-24] MEDS: cefTRIAXone sodium 500 MG VIAL IM (15:09)
[2023-11-24 15:15] VITALS: BP 123/80; PULSE 85; RESP 18; TEMP 36.4; O2SAT 94
[2023-11-24 16:28] LABS: CT PCR NOT DETECTED (Not Detect.); NG PCR DETECTED (Not Detect.)
== END 2023-11-24 15:15 | disposition home or self-care (01) ==
LOC: HO.ED 15:12
PROVIDERS: Physician Assistant; Emergency Provider Emergency Medicine
DX: M79.672 Pain in left foot (principal); A54.02 Gonococcal vulvovaginitis, unspecified; N89.8 Other specified noninflammatory disorders of vagina; Z79.899 Other long term (current) drug therapy; Z20.2 Contact with and (suspected) exposure to infections with a predominantly sexual mode of transmission
CPT/HCPCS: 73620; 87491; 87591; 96372; 99282; 99284; J0696

== ENCOUNTER 2023-11-29 02:41 | Emergency (ER) | payer MEDICAID, SELFPAY ==
[2023-11-29 02:59] VITALS: BP 121/72; PULSE 81; RESP 14; TEMP 36.2; O2SAT 95; BMI 25.7
--- NOTE | 2023-11-29 03:49 | ED.GENADULT ---
HPI - General Adult General Chief complaint: Psychiatric Symptoms Stated complaint: left ankle ? sprain/ detoxing Time Seen by Provider: 11/29/23 03:23 Mode of arrival: ambulatory Limitations: no limitations History of Present Illness ED Provider: chani HUSSEIN narrative: Patient is 38 years old with history of mood disorder/schizoaffective disorder PTSD cocaine heroin abuse comes here at does not have medications with chronic left foot pain asking for her medications patient has been here multiple times for same was seen by psych on 11/10 Related Data Home Medications ?Medication ?Instructions ?Recorded ?Confirmed gabapentin 800 mg tablet 800 mg PO TID 11/03/23 11/21/23 olanzapine 5 mg tablet (Zyprexa) 5 mg PO BID 11/03/23 11/21/23 propranolol 10 mg tablet 10 mg PO BID 11/03/23 11/21/23 baclofen 10 mg tablet 10 mg PO BID 11/17/23 11/21/23 clonazepam 0.5 mg tablet 0.5 mg PO BID 11/17/23 11/21/23 melatonin 1 mg tablet 6 mg PO BEDTIME PRN Sleep 11/17/23 11/21/23 Previous Rx's ?Medication ?Instructions ?Recorded clotrimazole 1 % topical cream 1 appl topical BID 4 weeks #45 11/23/23 grams sulfamethoxazole 800 1 tab PO BID #20 tabs 11/23/23 mg-trimethoprim 160 mg tablet (Bactrim DS) doxycycline hyclate 100 mg capsule 100 mg PO BID 7 days #14 caps 11/24/23 metronidazole 500 mg tablet 500 mg PO BID 7 days #14 tabs 11/24/23 clonazepam 0.5 mg tablet 0.5 mg PO BID #14 tabs 11/29/23 gabapentin 800 mg tablet 800 mg PO BID #28 tabs 11/29/23 olanzapine 5 mg tablet (Zyprexa) 5 mg PO BID #14 tabs 11/29/23 Allergies Allergy/AdvReac Type Severity Reaction Status Date / Time No Known Allergies Allergy Verified 11/29/23 03:01 [No Known Allergies*] Review of Systems Review of Systems: Yes all other systems are reviewed and are negative PMFSH Past Medical History Medical History MDD (major depressive disorder), recurrent, severe, with psychosis Opioid use disorder, moderate, dependence Polysubstance abuse Cocaine use disorder History of drug dependence/abuse Atypical bipolar disorder Opiate withdrawal Acute anxiety Drug-induced psychotic disorder Depression PTSD (post-traumatic stress disorder) Anxiety Depression Social History Social History Household Members: Significant Other Household Members Other:: grandmother, uncle Housing: Other Housing Other:: Homeless Unable to assess alcohol history related to: Refusing to respond 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: current 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 frequency: 0-2 drinks per day Alcohol type: beer, wine and hard liquor 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 Patient Tobacco Use Status: Tobacco use Unknown Tobacco use type: Cigarette Cigarette Packs Per Day: 1.5 Cigarettes Per Day: 30.0 Years Smoked: 26 e-Cigarette/Vaping Use: Never Used Second Hand Smoke Exposure: Yes Substance Use Type: Crack/Cocaine, Heroin, IV Drugs and Opiates Advance Directives: No Advance Directives Information Provided: No Do you have a plan to hurt others: No Plan service: No Current occupational status: unemployed Sexual orientation: Don't Know Physical Exam ED Vital Signs: Vital Signs - 24 hr 11/29/23 02:59 11/29/23 04:00 11/29/23 04:24 Temperature 97.1 F 97.7 F 97.7 F Pulse Rate 81 86 86 Respiratory Rate 14 16 16 Blood Pressure 121/72 110/71 110/71 Pulse Oximetry 95 96 96 Oxygen Delivery Method Room Air Room Air Room Air BMI result Body Mass Index 25.7 Appearance: Alert. Oriented X3. Anxious Eyes: PERRLA, No Nystagmus ENT: Pharynx normal. Oral Mucosa moist Neck: Normal inspection. Neck supple. CVS: Normal heart rate and rhythm. Pulses normal. Respiratory: No respiratory distress. Equal air entry bilateral, no wheezing/rales/rhonchi Abdomen: Soft and nontender. Bowel sounds are present, no mass palpable, no CVA tenderness Skin: Skin warm and dry. Normal skin color. Normal skin turgor. Extremities: No lower extremity edema. No calf tenderness left foot with multiple old scab no signs of infection Neuro: Oriented X 3. No motor deficit. No sensory deficit.No cerebellar signs , cranial nerves II-XII intact Medications Administered Discontinued Medications Generic Name Dose Route Start Last Admin Trade Name Freq PRN Reason Stop Dose Admin Clonazepam 0.5 mg 11/29/23 04:08 11/29/23 04:14 Clonazepam 0.5 Mg Tablet PO 11/29/23 04:09 0.5 mg ONCE ONE Administration Gabapentin 600 mg 11/29/23 04:05 11/29/23 04:14 Gabapentin 600 Mg Tablet PO 11/29/23 04:06 600 mg ONCE ONE Administration Quetiapine Fumarate 300 mg 11/29/23 03:52 11/29/23 04:14 Quetiapine Fumarate 300 Mg Tablet PO 11/29/23 03:53 300 mg ONCE ONE Administration Medical Decision Making Medical Decision Making [facility] Narrative: Patient's medication were refilled Discharge Plan Discharge Clinical Impression: Major depressive disorder, Substance abuse Patient Disposition: Home, Self-Care Instructions: Depression (ED), Polysubstance Abuse (ED) Additional Instructions: Take medication as prescribed and follow with your psychiatrist Prescriptions: New clonazepam 0.5 mg tablet 0.5 mg PO BID Qty: 14 0RF gabapentin 800 mg tablet 800 mg PO BID Qty: 28 0RF olanzapine [Zyprexa] 5 mg tablet 5 mg PO BID Qty: 14 0RF No Action olanzapine [Zyprexa] 5 mg Tablet 5 mg PO BID propranolol 10 mg Tablet 10 mg PO BID gabapentin 800 mg Tablet 800 mg PO TID clonazepam 0.5 mg Tablet 0.5 mg PO BID baclofen 10 mg Tablet 10 mg PO BID melatonin 1 mg Tablet 6 mg PO BEDTIME PRN (Reason: Sleep) sulfamethoxazole-trimethoprim [Bactrim DS] 800-160 mg tablet 1 tab PO BID Qty: 20 0RF clotrimazole 1 % cream 1 appl topical BID 28 Days Qty: 45 0RF Rx Instructions: apply to neck lesion doxycycline hyclate 100 mg capsule 100 mg PO BID 7 Days Qty: 14 0RF metronidazole 500 mg tablet 500 mg PO BID 7 Days Qty: 14 0RF Interventions: Rhea-Suicide Risk Severity Scale Last Done: 11/29/23 04:24 ED Discharge Assessment Last Done: 11/29/23 04:24 Discharge Date/Time: 11/29/23 04:25 Print Language: [place] Citizen
--- NOTE | 2023-11-29 03:52 | PC.NURSE ---
pt provider with food per request
[2023-11-29 04:00] VITALS: BP 110/71; PULSE 86; RESP 16; TEMP 36.5; O2SAT 96
[2023-11-29] MEDS: Gabapentin 600 MG TABLET PO (04:14)
[2023-11-29] MEDS: QUEtiapine Fumarate 300 MG TABLET PO (04:14)
[2023-11-29] MEDS: clonazePAM 0.5 MG TABLET PO (04:14)
[2023-11-29 04:24] VITALS: BP 110/71; PULSE 86; RESP 16; TEMP 36.5; O2SAT 96
== END 2023-11-29 04:25 | disposition home or self-care (01) ==
PROVIDERS: Emergency Provider Internal Medicine
DX: F33.1 Major depressive disorder, recurrent, moderate (principal); F11.10 Opioid abuse, uncomplicated; F14.10 Cocaine abuse, uncomplicated; M79.672 Pain in left foot; F17.210 Nicotine dependence, cigarettes, uncomplicated; Z71.51 Drug abuse counseling and surveillance of drug abuser; Z79.899 Other long term (current) drug therapy
CPT/HCPCS: 99283; 99284

== ENCOUNTER 2023-12-01 02:40 | Emergency (ER) | payer MEDICAID, SELFPAY ==
[2023-12-01 02:42] VITALS: BP 118/75; PULSE 84; RESP 18; TEMP 36.7; O2SAT 98; BMI 23.3
--- NOTE | 2023-12-01 03:00 | MHC.EDTECH ---
This tech changed patient over into crisis attire,security called,all belongings went to [facility] ROOM.1:1 sitter at bedside for safety
--- NOTE | 2023-12-01 03:10 | MHC.EDTECH ---
Patient was given a turkey sandwich/2jello's,/2cheese sticks,saltines and two cups of silverio daniele.
[2023-12-01 03:31] LABS: Basophils Percent Auto 0.2 % (0-2); Eosinophils Absolute Auto 0.1 X10*3/uL (0.0-0.4); Eosinophils Percent Auto 1.9 % (0-4); Hematocrit 30.2 % (37.0-47.0); Hemoglobin 9.5 g/dl (12.0-16.0); Imm Gran Abs Auto 0.01 X10*3/uL (0.00-0.03); Imm Gran Pct Auto 0.2 % (0.0-0.4); Lymphocytes Absolute Auto 1.7 X10*3/uL (1.2-4.9); MANUAL DIFF FLAG NO; Mean Corpuscular HGB Conc 31.5 g/dl (31.0-35.0); Mean Corpuscular Hemoglobin 27.1 pg (27.0-33.0); Mean Platelet Volume 8.9 fL (9.4-12.3); Monocytes Absolute Auto 0.4 X10*3/uL (0.1-1.2); Neutrophils Absolute Auto 3.6 x10*3/uL (2.0-8.3); Neutrophils Percent Auto 61.7 % (45-73); Platelet Count 284 X10*3/uL (160-400); Red Blood Count 3.51 X10*6/uL (4.20-5.50); Red Cell Distribution Width 15.9 % (11.0-16.0); White Blood Count 5.8 X10*3/uL (4.8-10.8)
[2023-12-01 03:47] LABS: COVID-19 Test Negative (Negative); IDNOW Serial# 6674DD1D
[2023-12-01 03:49] LABS: Alanine Aminotransferase 24 U/L (0-31); Albumin Level 4.2 g/dL (3.5-5.0); Alkaline Phosphatase 65 U/L (39-117); Anion Gap 14 (12-20); Aspartate Amino Transferase 28 U/L (5-31); Bilirubin Total 0.4 mg/dL (0.0-1.0); Blood Urea Nitrogen 15 mg/dL (9-16); Calcium 9.7 mg/dL (8.4-10.2); Carbon Dioxide 27 mmol/L (22-29); Chloride 103 mmol/L (96-108); Creatinine Clr Calc Pharmacy 92.3; Estimated Glomerular Filt Rate > 60; Glucose Random 139 mg/dL (60-115); Sodium 141 mmol/L (135-145); Total Protein 7.5 g/dL (6.5-8.0)
[2023-12-01] MEDS: Doxycycline Monohydrate 100 MG CAPSULE PO (03:57)
[2023-12-01] MEDS: OLANZapine 5 MG TABLET PO ×3 (03:57→21:49)
[2023-12-01] MEDS: diphenhydrAMINE HCL 25 MG CAPSULE 50 MG PO (03:57)
[2023-12-01] MEDS: clonazePAM 0.5 MG TABLET PO ×3 (03:57→21:49)
[2023-12-01] MEDS: QUEtiapine Fumarate 300 MG TABLET 600 MG PO (03:58)
--- NOTE | 2023-12-01 04:05 | ED.PSYCH ---
HPI - Psych General Chief Complaint: Psychiatric Symptoms Stated Complaint: SI Time Seen by Provider: 12/01/23 03:20 Source: patient Mode of arrival: ambulatory Limitations: no limitations History of Present Illness ED Provider: chani HUSSEIN Narrative: Patient's history of major depressive disorder polysubstance abuse bipolar disorder homeless been here multiple times comes here now as asking for help feel depressed thoughts of self himself from without any plan wants to stop the drugs but could not asking for her medication which she could not get it picked up from the pharmacy yet Related Data Home Medications ?Medication ?Instructions ?Recorded ?Confirmed gabapentin 800 mg tablet 800 mg PO TID 11/03/23 11/21/23 olanzapine 5 mg tablet (Zyprexa) 5 mg PO BID 11/03/23 11/21/23 propranolol 10 mg tablet 10 mg PO BID 11/03/23 11/21/23 baclofen 10 mg tablet 10 mg PO BID 11/17/23 11/21/23 clonazepam 0.5 mg tablet 0.5 mg PO BID 11/17/23 11/21/23 melatonin 1 mg tablet 6 mg PO BEDTIME PRN Sleep 11/17/23 11/21/23 Previous Rx's ?Medication ?Instructions ?Recorded clotrimazole 1 % topical cream 1 appl topical BID 4 weeks #45 11/23/23 grams sulfamethoxazole 800 1 tab PO BID #20 tabs 11/23/23 mg-trimethoprim 160 mg tablet (Bactrim DS) doxycycline hyclate 100 mg capsule 100 mg PO BID 7 days #14 caps 11/24/23 metronidazole 500 mg tablet 500 mg PO BID 7 days #14 tabs 11/24/23 clonazepam 0.5 mg tablet 0.5 mg PO BID #14 tabs 11/29/23 gabapentin 800 mg tablet 800 mg PO BID #28 tabs 11/29/23 olanzapine 5 mg tablet (Zyprexa) 5 mg PO BID #14 tabs 11/29/23 Allergies Allergy/AdvReac Type Severity Reaction Status Date / Time No Known Allergies Allergy Verified 12/01/23 02:46 [No Known Allergies*] Review of Systems Review of Systems: Yes all other systems are reviewed and are negative PMFSH Past Medical History Medical History MDD (major depressive disorder), recurrent, severe, with psychosis Opioid use disorder, moderate, dependence Polysubstance abuse Cocaine use disorder History of drug dependence/abuse Atypical bipolar disorder Opiate withdrawal Acute anxiety Drug-induced psychotic disorder Depression PTSD (post-traumatic stress disorder) Anxiety Depression Social History Social History Household Members: Significant Other Household Members Other:: grandmother, uncle Housing: Other Housing Other:: Homeless Unable to assess alcohol history related to: Refusing to respond 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: current 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 frequency: 0-2 drinks per day Alcohol type: beer, wine and hard liquor 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 Patient Tobacco Use Status: Tobacco use Unknown Tobacco use type: Cigarette Cigarette Packs Per Day: 1.5 Cigarettes Per Day: 30.0 Years Smoked: 26 Smoked in Last 30 Days: Yes e-Cigarette/Vaping Use: Never Used Second Hand Smoke Exposure: Yes Use of substances other than those prescribed or required for medical reasons: Yes Substance Use Type: Crack/Cocaine, Heroin and Opiates Substance Use Frequency: Chronic Longstanding Last Used Substance: Hours (ago) Any prior treatment program specific to substance use: Yes Advance Directives: No Advance Directives Information Provided: Yes Do you have a plan to hurt others: No Plan Patient : No service: No Current occupational status: unemployed Sexual orientation: Don't Know Physical Exam Vital Signs: Vital Signs: Last Vital Signs Temp 98.1 F 12/01/23 06:00 Pulse 78 12/01/23 06:00 Resp 16 12/01/23 06:00 BP 115/75 12/01/23 06:00 Pulse Ox 97 12/01/23 06:00 O2 Del Method Room Air 12/01/23 06:00 BMI result Body Mass Index 23.3 Appearance: Alert. Oriented X3. No acute distress. Eyes: PERRLA, No Nystagmus ENT: Pharynx normal. Oral Mucosa moist Neck: Normal inspection. Neck supple. CVS: Normal heart rate and rhythm. Pulses normal. Respiratory: No respiratory distress. Equal air entry bilateral, no wheezing/rales/rhonchi Abdomen: Soft and nontender. Bowel sounds are present, no mass palpable, no CVA tenderness Skin: Skin warm and dry. Normal skin color. Normal skin turgor. Extremities: No lower extremity edema. No calf tenderness multiple skin breakdown lesions psych: Depressed denies any SI at this time Neuro: Oriented X 3. No motor deficit. No sensory deficit.No cerebellar signs , cranial nerves II-XII intact Medications Administered Discontinued Medications Generic Name Dose Route Start Last Admin Trade Name Radha PRN Reason Stop Dose Admin Clonazepam 0.5 mg 12/01/23 03:39 12/01/23 03:57 Clonazepam 0.5 Mg Tablet PO 12/01/23 03:40 0.5 mg ONCE ONE Administration Diphenhydramine HCl 50 mg 12/01/23 03:40 12/01/23 03:57 Diphenhydramine Hcl 25 Mg Capsule PO 12/01/23 03:41 50 mg ONCE ONE Administration Doxycycline Monohydrate 100 mg 12/01/23 03:41 12/01/23 03:57 Doxycycline Monohydrate 100 Mg Capsule PO 12/01/23 03:42 100 mg ONCE ONE Administration Gabapentin 600 mg 12/01/23 04:03 12/01/23 04:12 Gabapentin 600 Mg Tablet PO 12/01/23 04:04 600 mg ONCE ONE Administration Olanzapine 5 mg 12/01/23 03:39 12/01/23 03:57 Olanzapine 5 Mg Tablet PO 12/01/23 03:40 5 mg ONCE ONE Administration Potassium Chloride 20 meq 12/01/23 05:25 12/01/23 05:30 Potassium Chloride Er 20 Meq Tab.Er.Prt PO 12/01/23 05:26 20 meq ONCE ONE Administration Quetiapine Fumarate 600 mg 12/01/23 03:39 12/01/23 03:58 Quetiapine Fumarate 300 Mg Tablet PO 12/01/23 03:40 600 mg ONCE ONE Administration Medical Decision Making Medical Decision Making MDM Narrative: Patient with polysubstance abuse with depression requesting evaluation of a care team for increased depression and suicidal feeling. Will consult care team disposition according to their evaluation Lab Data [facility] Lab Attestation statement: I reviewed the patient's lab results. 12/01/23 03:25 12/01/23 03:25 Labs: Lab Results 12/01/23 Range/Units 03:25 WBC 5.8 (4.8-10.8) X10*3/uL RBC 3.51 L (4.20-5.50) X10*6/uL Hgb 9.5 L (12.0-16.0) g/dl Hct 30.2 L (37.0-47.0) % MCV 86.0 (80.0-98.0) fL MCH 27.1 (27.0-33.0) pg MCHC 31.5 (31.0-35.0) g/dl RDW 15.9 (11.0-16.0) % Plt Count 284 (160-400) X10*3/uL MPV 8.9 L (9.4-12.3) fL Immature Gran % (Auto) 0.2 (0.0-0.4) % Neut % (Auto) 61.7 (45-73) % Lymph % (Auto) 29.0 (20-40) % [place] % (Auto) 7.0 (2-11) % Eos % (Auto) 1.9 (0-4) % Baso % (Auto) 0.2 (0-2) % Lymph # (Auto) 1.7 (1.2-4.9) X10*3/uL [place] # (Auto) 0.4 (0.1-1.2) X10*3/uL Eos # (Auto) 0.1 (0.0-0.4) X10*3/uL Baso # (Auto) 0.0 (0.0-0.2) X10*3/uL Abs Immat Gran (auto) 0.01 (0.00-0.03) X10*3/uL Absolute Neuts (auto) 3.6 (2.0-8.3) x10*3/uL Absolute Nucleated RBC 0.000 (0.0-0.012) X10*3/uL Nucleated RBC % (auto) 0.0 (0.0-0.2) /100WBC Sodium 141 (135-145) mmol/L Potassium 3.0 L (3.3-5.1) mmol/L Chloride 103 (96-108) mmol/L Carbon Dioxide 27 (22-29) mmol/L Anion Gap 14 (12-20) BUN 15 (9-16) mg/dL Creatinine 0.72 (0.5-1.4) mg/dL Estim Creat Clear Calc 92.3 Estimated GFR > 60 Random Glucose 139 H (60-115) mg/dL Calcium 9.7 (8.4-10.2) mg/dL Magnesium 2.1 (1.6-2.6) mg/dL Total Bilirubin 0.4 (0.0-1.0) mg/dL AST 28 (5-31) U/L ALT 24 (0-31) U/L Alkaline Phosphatase 65 (39-117) U/L Total Protein 7.5 (6.5-8.0) g/dL Albumin 4.2 (3.5-5.0) g/dL COVID-19 (AUTUMN) Negative (Negative) COVID-19 Clin Com See Note Discharge Plan Discharge Clinical Impression: MDD (major depressive disorder), recurrent, severe, with psychosis, Substance abuse, Suicidal ideation Patient Disposition: Still a Patient Prescriptions: No Action clonazepam 0.5 mg tablet 0.5 mg PO BID Qty: 14 0RF gabapentin 800 mg tablet 800 mg PO BID Qty: 28 0RF olanzapine [Zyprexa] 5 mg tablet 5 mg PO BID Qty: 14 0RF olanzapine [Zyprexa] 5 mg Tablet 5 mg PO BID propranolol 10 mg Tablet 10 mg PO BID gabapentin 800 mg Tablet 800 mg PO TID clonazepam 0.5 mg Tablet 0.5 mg PO BID baclofen 10 mg Tablet 10 mg PO BID melatonin 1 mg Tablet 6 mg PO BEDTIME PRN (Reason: Sleep) sulfamethoxazole-trimethoprim [Bactrim DS] 800-160 mg tablet 1 tab PO BID Qty: 20 0RF clotrimazole 1 % cream 1 appl topical BID 28 Days Qty: 45 0RF Rx Instructions: apply to neck lesion doxycycline hyclate 100 mg capsule 100 mg PO BID 7 Days Qty: 14 0RF metronidazole 500 mg tablet 500 mg PO BID 7 Days Qty: 14 0RF Interventions: [place]-Suicide Risk Severity Scale Last Done: 12/01/23 02:58 Print Language: [place] Zealander
[2023-12-01] MEDS: Gabapentin 600 MG TABLET PO (04:12)
[2023-12-01] MEDS: Potassium Chloride ER 20 MEQ TAB.ER.PRT PO (05:30)
[2023-12-01 05:50] LABS: Magnesium 2.1 mg/dL (1.6-2.6)
[2023-12-01 06:00] VITALS: BP 115/75; PULSE 78; RESP 16; TEMP 36.7; O2SAT 97
--- NOTE | 2023-12-01 08:06 | PC.NURSE ---
Resumed care of pt at 0700. Pt resting in bed quietly, respirations even and unlabored, no increased wob/sob. Pt endorsing SI with plan to overdose on drugs, 1:1 sitter at bedside for safety. Pt aware of need for UA, pending CARE team evaluation. All needs met at this time, call bond within reach, pt aware of plan of care.
--- NOTE | 2023-12-01 12:13 | ECG_ITS ---
Test Reason : detox Blood Pressure : / mmHG Vent. Rate : 077 BPM Atrial Rate : 077 BPM P-R Int : 140 ms QRS Dur : 086 ms QT Int : 444 ms P-R-T Axes : 036 -27 -10 degrees QTc Int : 502 ms Normal sinus rhythm Prolonged QT Abnormal ECG When compared with ECG of 21-NOV-2023 20:45, T wave inversion now evident in Anterior leads Referred By: Teagan Sharpe Electronically Signed By:COSME DOYLE
[2023-12-01] MEDS: oxyCODONE HCl Immed Release 5 MG TABLET 10 MG PO (12:24)
[2023-12-01 13:39] VITALS: RESP 18
[2023-12-01 14:00] VITALS: RESP 16
--- NOTE | 2023-12-01 15:36 | PC.NURSE ---
Assumed care of patient at 1500, patient is tearful with this RN, asking for medications. This Rn completed med rec with assistance from patient. Pt requesting multiple food items and becomes upset when we do not have something that she would like
--- NOTE | 2023-12-01 16:36 | PHA.MEDREC ---
Pharmacy Consult ? Medication Reconciliation Pharmacy has completed the medication reconciliation. Reviewed med rec done by Mellisa, spoke to her and she stated she went by what patient has been getting in house over multiple stays at [facility] recently
[2023-12-01] MEDS: Gabapentin 400 MG CAPSULE 800 MG PO ×2 (16:55→21:49)
--- NOTE | 2023-12-01 17:13 | MHC.CARE ---
Case was consulted with Dr. Teagan Sharpe and it was agreed that a section 35 will be completed tomorrow 12/02/23. Pt was seen by the CARE Team and will remain in the ED as a follow up in AM to complete a mental status and proceed with the 35 moving forward. This headline writer consulted with Melissa MANCILLA and further follow up will be documented moving forward.
--- NOTE | 2023-12-01 19:00 | PC.NURSE ---
this rn assumed care of pt, pt resting in stretcher, appears to be sleeping, respirations even and unlabored, no acute distress noted.
--- NOTE | 2023-12-01 21:37 | PC.NURSE ---
pt medicated with previous medications late, plan to medicate pt when pt is awake, at this time pt asleep, respiration even and unlabored.
[2023-12-01 21:49] VITALS: BP 109/66; PULSE 72
[2023-12-01] MEDS: Propranolol HCL 10 MG TABLET PO (21:49)
[2023-12-01] MEDS: Baclofen 10 MG TABLET PO (21:49)
[2023-12-01 21:51] VITALS: BP 109/68; PULSE 72; RESP 16; O2SAT 97
--- NOTE | 2023-12-01 21:51 | PC.NURSE ---
pt awake at this time, pt in room screaming where are my meds give me my meds pt ambulated with steady gait out of room, pt medicated per mar, tolerated well whole with water.
--- NOTE | 2023-12-01 21:51 | MHC.EDTECH ---
pt swearing at staff when not receiving snacks quick enough. pt upset with the choices on the unit.
[2023-12-02 07:54] LABS: UPreg QC Valid YES; Urine Pregnancy NEGATIVE (NEGATIVE)
[2023-12-02 08:00] LABS: Amphetamine Screen Urine Not Detected (Not Detect); Barbiturates, Urine Not Detected (Not Detect); Benzodiazepines Screen Urine Not Detected (Not Detect); Buprenorphine Scr Not Detected (Not Detect); Cannabinoid Screen Urine Not Detected (Not Detect); Cocaine Screen Urine POSITIVE (Not Detect); Fentanyl, urine POSITIVE (Not Detect); Methadone Screen, Urine Not Detected (Not Detect); Opiate Screen Urine POSITIVE (Not Detect); Oxycodone Screen Urine Positive (Not Detect); Phencyclidine Screen Urine Not Detected (Not Detect)
[2023-12-02 08:08] LABS: Appearance Urine Turbid; Color Urine Yellow; Glucose Urine UA Negative (Negative); Leukocyte Esterase Urine Negative (Negative); Nitrite Urine Negative (Negative); PH 6.5 (5.0-9.0); Urine Blood Negative (Negative); Urine Ketones Negative (Negative); Urine Protein Negative (Neg-Trace)
[2023-12-02] MEDS: Baclofen 10 MG TABLET PO (08:17)
[2023-12-02] MEDS: clonazePAM 0.5 MG TABLET PO (08:17)
[2023-12-02] MEDS: Propranolol HCL 10 MG TABLET PO (08:17)
[2023-12-02] MEDS: OLANZapine 5 MG TABLET PO (08:17)
[2023-12-02] MEDS: Gabapentin 400 MG CAPSULE 800 MG PO (08:17)
[2023-12-02] MEDS: oxyCODONE HCl Immed Release 5 MG TABLET 10 MG PO ×2 (08:39→11:20)
[2023-12-02 08:53] VITALS: RESP 14
--- NOTE | 2023-12-02 09:23 | PC.NURSE ---
Patient became upset at this RN during morning med pass because she was not receiving methadone. This RN informed patient that she is not going to be receiving methadone per Flower Donohue's office. Pt became upset and called this RN a jena lucero then demanded to leave. This RN educated patient that she was on a section 12a and could not leave at this time. Pt became upset but returned to room. Pt given Oxycodone per MAY, now sleeping, respirations even and unlabored, no apparent distress noted at this time Continue plan of care for Section 35
--- NOTE | 2023-12-02 10:15 | MHC.CARE ---
Petition and the Affidavit completed by Dr. Sharpe and submitted to Yohan.
--- NOTE | 2023-12-02 12:00 | MHC.CARE ---
Warrant for apprehension was issued by [facility]. Pt to be picked up on Section 35 warrant. Nursing and attending provider aware.
[2023-12-02 12:19] VITALS: BP 104/72; PULSE 84; RESP 16; TEMP 37.1; O2SAT 99
== END 2023-12-02 12:21 ==
PROVIDERS: Emergency Provider Internal Medicine
DX: F33.1 Major depressive disorder, recurrent, moderate (principal); R45.851 Suicidal ideations; Z59.00 Homelessness unspecified; Z79.899 Other long term (current) drug therapy; Z11.52 Encounter for screening for COVID-19
CPT/HCPCS: 80053; 80307; 81003; 81025; 83735; 85025; 87635; 93005; 99285; S9485

== ENCOUNTER 2024-01-14 23:13 | Emergency (ER) | payer MEDICAID, SELFPAY ==
[2024-01-14 23:21] VITALS: BP 99/72; PULSE 109; RESP 17; TEMP 36.6; O2SAT 97
[2024-01-14 23:23] VITALS: BP 105/72; PULSE 111; O2SAT 98
[2024-01-14 23:28] VITALS: BMI 24.9
--- NOTE | 2024-01-14 23:34 | ED_ITS ---
HPI - General Adult General Chief complaint: General Medical Stated complaint: HEADACHE,NOT TAKING ANTIPSYCHOTIC Time Seen by Provider: 01/14/24 23:27 Source: patient, RN notes reviewed and old records reviewed Mode of arrival: EMS Limitations: no limitations History of Present Illness ED Provider: Lidia HUSSEIN narrative: 38-year-old female presents for evaluation of ?I have not take my medications in 3 days and my head hurts. ? Patient reports that she was placed on a section 35 about a month ago. She reports that she just recently got out 3 days ago. She has not had any of her home medications since being discharged from rehab She believes this is the cause of her headache. She was requesting her medication and a short prescription until she can see her primary doctor Specifically she was requesting gabapentin most. ? Her med rec from a month and a half ago shows propranolol, Zyprexa, gabapentin, clonazepam, and baclofen The patient reports that her medications have not changed since then She denies any fevers, chills, neck pain Related Data Home Medications ?Medication ?Instructions ?Recorded ?Confirmed gabapentin 800 mg tablet 800 mg PO TID 11/03/23 12/01/23 propranolol 10 mg tablet 10 mg PO BID 11/03/23 12/01/23 baclofen 10 mg tablet 10 mg PO BID 11/17/23 12/01/23 melatonin 1 mg tablet 6 mg PO BEDTIME PRN Sleep 11/17/23 12/01/23 Previous Rx's ?Medication ?Instructions ?Recorded clonazepam 0.5 mg tablet 0.5 mg PO BID #14 tabs 11/29/23 olanzapine 5 mg tablet (Zyprexa) 5 mg PO BID #14 tabs 11/29/23 baclofen 10 mg tablet 10 mg PO BID #14 tabs 01/14/24 clonazepam 0.5 mg tablet 0.5 mg PO BID #14 tabs 01/14/24 gabapentin 800 mg tablet 800 mg PO TID #21 tabs 01/14/24 olanzapine 5 mg tablet (Zyprexa) 5 mg PO DAILY #14 tabs 01/14/24 propranolol 10 mg tablet 10 mg PO BID #14 tabs 01/14/24 Allergies Allergy/AdvReac Type Severity Reaction Status Date / Time methadone Allergy Severe Anaphylaxis Verified 01/14/24 23:29 Review of Systems Constitutional: Constitutional: Denies body ache(s), Denies chills, Denies fever(s), Denies frequent falls and Reports headache(s) Eyes: Eyes: Denies blurry vision ENT: Denies vertigo, Denies dizziness and Reports headache(s) Cardiovascular: Cardiovascular: Denies chest pain and Denies dyspnea Respiratory: Respiratory: Denies cough and Denies dyspnea Gastrointestinal: Gastrointestinal: Denies abdominal pain, Denies nausea and Denies vomiting Musculoskeletal: Musculoskeletal: Denies back pain Integumentary/Breasts: Skin/Breast: Denies rash Neurologic: Denies vertigo, Denies dizziness, Denies frequent falls and Reports headache(s) [facility] Past Medical History Medical History MDD (major depressive disorder), recurrent, severe, with psychosis Opioid use disorder, moderate, dependence Polysubstance abuse Cocaine use disorder History of drug dependence/abuse Atypical bipolar disorder Opiate withdrawal Acute anxiety Drug-induced psychotic disorder Depression PTSD (post-traumatic stress disorder) Anxiety Depression Social History Social History Household Members: Significant Other Household Members Other:: grandmother, uncle Housing: Other Housing Other:: Homeless Unable to assess alcohol history related to: Refusing to respond 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: never 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 Patient Tobacco Use Status: Tobacco use Unknown Tobacco use type: Cigarette Cigarette Packs Per Day: 1.5 Cigarettes Per Day: 30.0 Years Smoked: 26 Smoked in Last 30 Days: Yes e-Cigarette/Vaping Use: Never Used Second Hand Smoke Exposure: Yes Use of substances other than those prescribed or required for medical reasons: Yes Substance Use Type: Crack/Cocaine Advance Directives: No Advance Directives Information Provided: No Do you have a plan to hurt others: No Plan service: No Current occupational status: unemployed Sexual orientation: Don't Know Physical Exam ED Vital Signs: Vital Signs - 24 hr 01/14/24 23:21 01/14/24 23:43 01/14/24 23:47 Temperature 97.8 F 97.8 F Pulse Rate 109 H 99 99 Respiratory Rate 17 17 Blood Pressure 99/72 99/72 99/72 Pulse Oximetry 97 97 Oxygen Delivery Method Room Air Room Air BMI result Body Mass Index 24.9 Const General: healthy appearing, comfortable, no acute distress, alert and awake Nutritional Appearance: well nourished Orientation/consciousness: patient oriented x3 HENMT Head: Yes normocephalic and Yes atraumatic Eyes Eyelids: Yes eyelids normal Conjunctivae: conjunctivae normal Sclerae: sclerae normal Corneas: corneas normal Pupils: Equal, round and reactive pupils present EOM: EOMs intact bilaterally Neck Neck: Yes full ROM, No positive Brudzinski's sign and No positive Kernig's sign Resp Effort & Inspection: normal respiratory effort, able to speak in complete sentences and not labored Skin General skin exam: elasticity normal Neuro General: patient oriented x3 Cranial nerves: Yes CN's II-XII intact bilaterally, Yes Equal, round and drea ctive pupils present and Yes Bilaterally intact EOM present Cognition (Neuro): normal cognition Extrem Other: Moving all extremities well without any obvious deformities Medications Administered Discontinued Medications Generic Name Dose Route Start Last Admin Trade Name Freq PRN Reason Stop Dose Admin Baclofen 10 mg 01/14/24 23:33 01/14/24 23:41 Baclofen 10 Mg Tablet PO 01/14/24 23:34 10 mg ONCE ONE Administration Clonazepam 0.5 mg 01/14/24 23:33 01/14/24 23:41 Clonazepam 0.5 Mg Tablet PO 01/14/24 23:34 0.5 mg ONCE ONE Administration Gabapentin 800 mg 01/14/24 23:33 01/14/24 23:41 Gabapentin 400 Mg Capsule PO 01/14/24 23:34 800 mg ONCE ONE Administration Olanzapine 5 mg 01/14/24 23:33 01/14/24 23:41 Olanzapine 5 Mg Tablet PO 01/14/24 23:34 5 mg ONCE ONE Administration Propranolol HCl 10 mg 01/14/24 23:33 01/14/24 23:43 Propranolol Hcl 10 Mg Tablet PO 01/14/24 23:34 Not Given ONCE ONE Protocol Medical Decision Making Medical Decision Making MDM Narrative: 38-year-old female with past medical history significant for bipolar disorder, PTSD, IV substance abuse, seizure disorder, prolonged QT presents for evaluation of the headache and medication refill. She was awake, alert and oriented, she has no neuro deficits, no fevers, chills, neck pain, no meningeal signs. Recent med rec, I gave her a 1 time dose of all of her most recent medications and I gave her a 1 week prescription of each as well to Holter over until she can see her PCP Differential Diagnosis Differential Diagnoses: The differential diagnosis associated with the presentation includes Bipolar disorder Substance abuse Depression Psychosis Discharge Plan Discharge Clinical Impression: Headache, Bipolar disorder, Medication refill Patient Disposition: Home, Self-Care Instructions: Bipolar Disorder (ED), Acute Headache (ED) Additional Instructions: Take all your medications as prescribed Follow-up with your primary doctor, return for new or worsening symptoms Prescriptions: New gabapentin 800 mg tablet 800 mg PO TID Qty: 21 0RF olanzapine [Zyprexa] 5 mg tablet 5 mg PO DAILY Qty: 14 0RF propranolol 10 mg tablet 10 mg PO BID Qty: 14 0RF baclofen 10 mg tablet 10 mg PO BID Qty: 14 0RF clonazepam 0.5 mg tablet 0.5 mg PO BID Qty: 14 0RF No Action clonazepam 0.5 mg tablet 0.5 mg PO BID Qty: 14 0RF olanzapine [Zyprexa] 5 mg tablet 5 mg PO BID Qty: 14 0RF propranolol 10 mg Tablet 10 mg PO BID gabapentin 800 mg Tablet 800 mg PO TID baclofen 10 mg Tablet 10 mg PO BID melatonin 1 mg Tablet 6 mg PO BEDTIME PRN (Reason: Sleep) Interventions: ED Discharge Assessment Last Done: 01/14/24 23:47 Discharge Date/Time: 01/14/24 23:50 Print Language: Ukrainian
[2024-01-14] MEDS: clonazePAM 0.5 MG TABLET PO (23:41)
[2024-01-14] MEDS: Gabapentin 400 MG CAPSULE 800 MG PO (23:41)
[2024-01-14] MEDS: OLANZapine 5 MG TABLET PO (23:41)
[2024-01-14] MEDS: Baclofen 10 MG TABLET PO (23:41)
[2024-01-14 23:43] VITALS: BP 99/72; PULSE 99
[2024-01-14 23:47] VITALS: BP 99/72; PULSE 99; RESP 17; TEMP 36.6; O2SAT 97
== END 2024-01-14 23:50 | disposition home or self-care (01) ==
PROVIDERS: Emergency Provider Internal Medicine
DX: R51.9 Headache, unspecified (principal); F31.9 Bipolar disorder, unspecified; F14.90 Cocaine use, unspecified, uncomplicated; F17.210 Nicotine dependence, cigarettes, uncomplicated; Z76.0 Encounter for issue of repeat prescription; Z79.899 Other long term (current) drug therapy
CPT/HCPCS: 99284

== ENCOUNTER 2024-01-17 11:13 | Emergency (ER) | payer MEDICAID, SELFPAY ==
--- NOTE | 2024-01-17 11:23 | ED_ITS ---
HPI - General Adult General Chief complaint: General Medical Stated complaint: Medication refill Time Seen by Provider: 01/17/24 11:49 Source: patient Mode of arrival: ambulatory Limitations: no limitations History of Present Illness ED Provider: DEBBY ANDERSON PA-C HPI narrative: 38 year old female with pmhx significant for MDD, polysubstance use disorder, and bipolar disorder presents to the ED today requesting refill of seroquel and suboxone. [facility] she was started on Suboxone 24mg. She was released 4-6 days ago (cannot recall the exact date). States she did not receive a script on release. States she has follow-up with outpatient clinic on 01/28/2024. admits to using heroin and cocaine 2 days ago. Denies complaints at present. Denies headache, nausea, vomiting, diarrhea. Denies SI/HI. Related Data Home Medications ?Medication ?Instructions ?Recorded ?Confirmed gabapentin 800 mg tablet 800 mg PO TID 11/03/23 12/01/23 propranolol 10 mg tablet 10 mg PO BID 11/03/23 12/01/23 baclofen 10 mg tablet 10 mg PO BID 11/17/23 12/01/23 melatonin 1 mg tablet 6 mg PO BEDTIME PRN Sleep 11/17/23 12/01/23 Previous Rx's ?Medication ?Instructions ?Recorded clonazepam 0.5 mg tablet 0.5 mg PO BID #14 tabs 11/29/23 olanzapine 5 mg tablet (Zyprexa) 5 mg PO BID #14 tabs 11/29/23 baclofen 10 mg tablet 10 mg PO BID #14 tabs 01/14/24 clonazepam 0.5 mg tablet 0.5 mg PO BID #14 tabs 01/14/24 gabapentin 800 mg tablet 800 mg PO TID #21 tabs 01/14/24 olanzapine 5 mg tablet (Zyprexa) 5 mg PO DAILY #14 tabs 01/14/24 propranolol 10 mg tablet 10 mg PO BID #14 tabs 01/14/24 Allergies Allergy/AdvReac Type Severity Reaction Status Date / Time methadone Allergy Severe Anaphylaxis Verified 01/17/24 11:28 Review of Systems Review of Systems: Yes all other systems are reviewed and are negative PMFSH Past Medical History Attestation statement: The following information was validated with the patient. Source: old records reviewed and nursing notes reviewed Medical History MDD (major depressive disorder), recurrent, severe, with psychosis Opioid use disorder, moderate, dependence Polysubstance abuse Cocaine use disorder History of drug dependence/abuse Atypical bipolar disorder Opiate withdrawal Acute anxiety Drug-induced psychotic disorder Depression PTSD (post-traumatic stress disorder) Anxiety Depression Social History Social History Household Members: Significant Other Household Members Other:: grandmother, uncle Housing: Other Housing Other:: Homeless Unable to assess alcohol history related to: Refusing to respond 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: never 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 Patient Tobacco Use Status: Tobacco use Unknown Tobacco use type: Cigarette Cigarette Packs Per Day: 1.5 Cigarettes Per Day: 30.0 Years Smoked: 26 e-Cigarette/Vaping Use: Never Used Second Hand Smoke Exposure: Yes Substance Use Type: Crack/Cocaine Advance Directives: No Advance Directives Information Provided: No service: No Current occupational status: unemployed Sexual orientation: Don't Know Physical Exam ED Vital Signs: Vital Signs - 24 hr 01/17/24 11:25 01/17/24 12:08 Temperature 97.6 F 97.6 F Pulse Rate 108 H 108 H Respiratory Rate 16 16 Blood Pressure 122/87 122/87 Pulse Oximetry 97 97 Oxygen Delivery Method Room Air Room Air BMI result Body Mass Index 27.3 tachycardia, vitals otherwise wnl General: Well appearing, in no acute distress. Skin: Warm, dry, intact. No rashes or lesions. Head: Normocephalic, atraumatic. EENT: Hearing is intact b/l. Conjunctiva clear. PERRLA. EOM intact. Moist mucous membranes.? Neck: Supple without LAD Cardiac: Chest wall symmetric. RRR. Lungs: Normal respiratory effort without accessory muscle use. CTA bilaterally. No rales, rhonchi, or wheezes.? Abdomen: Soft, non-tender, non-distended. No rebound tenderness or guarding. Back: No midline spinous or paraspinal tenderness. No step off deformity. Ext: Upper and lower extremities atraumatic, without tenderness, deformity, swelling or erythema. Neuro: AOx3. Normal speech. Ambulating with steady gait. no tremors. no asterixis. Psych: Appropriate mood and affect. Responds appropriately to questions. Course Course Course Narrative: [id number] -- ticket collector contacted [facility] - spoke with medical staff there. States patient received 300mg seroquel daily prn along with 24mg suboxone. medical provider did note that patient was sent a prescription of suboxone to [facility] pharmacy - per [employer], patient has not yet picked this prescription up. plan to dose her suboxone in ED. advised patient to fish bait picker her prescription today as this should hold her over until her outpatient appointment on 01/28/24. no concern for precipitated withdrawal. Patient has remained stable throughout ED visit today. Discussed worrisome signs and symptoms and when to return to the ED. All questions answered at this time. Patient is agreeable with disposition and stable for discharge. Medications Administered Discontinued Medications Generic Name Dose Route Start Last Admin Trade Name Freq PRN Reason Stop Dose Admin Buprenorphine/Naloxone 2 film 01/17/24 11:49 01/17/24 11:58 Buprenorphine/Naloxone 12/3 Mg Film SUBLINGUAL 01/17/24 11:50 2 film ONCE ONE Administration Medical Decision Making Medical Decision Making [facility] Narrative: 38 year old female with pmhx significant for MDD, polysubstance use disorder, and bipolar disorder presents to the ED today requesting refill of seroquel and suboxone. Tachycardic. Vitals otherwise wnl. she is nontoxic appearing and in NAD. on exam, no tremors. well appearing. ambulating with steady gait. aox3. Differential diagnosis polysubstance use Plan for suboxone dose and discharge. Differential Diagnosis Differential Diagnoses: The differential diagnosis associated with the presentation includes as above. Admission/Observation not indicated. Social Determinants Patient?s care significantly limited by Social Determinants of Health including: Alcoholism and drug addiction in family and Other Social Determinant of Health Critical Care Time Critical Care Time Critical Care Time: No Discharge Plan Discharge Clinical Impression: Medication refill Patient Disposition: Home, Self-Care Instructions: Buprenorphine/Naloxone (Into the mouth), Medicine Refill (ED) Additional Instructions: You were evaluated in the ED today for suboxone dose. You were dosed with 24mg suboxone. [facility] confirmed that you have a prescription for suboxone waiting for you at [facility] on [address]. Please pick this prescription up today. This should hold you over until your appointment at the suboxone clinic on 01/28/24. Return with new or worsening symptoms. In the case of an emergency call 911. Prescriptions: No Action clonazepam 0.5 mg tablet 0.5 mg PO BID Qty: 14 0RF olanzapine [Zyprexa] 5 mg tablet 5 mg PO BID Qty: 14 0RF gabapentin 800 mg tablet 800 mg PO TID Qty: 21 0RF olanzapine [Zyprexa] 5 mg tablet 5 mg PO DAILY Qty: 14 0RF propranolol 10 mg tablet 10 mg PO BID Qty: 14 0RF baclofen 10 mg tablet 10 mg PO BID Qty: 14 0RF clonazepam 0.5 mg tablet 0.5 mg PO BID Qty: 14 0RF propranolol 10 mg Tablet 10 mg PO BID gabapentin 800 mg Tablet 800 mg PO TID baclofen 10 mg Tablet 10 mg PO BID melatonin 1 mg Tablet 6 mg PO BEDTIME PRN (Reason: Sleep) Interventions: ED Discharge Assessment Last Done: 01/17/24 12:08 Discharge Date/Time: 01/17/24 12:08 Print Language: Australian
[2024-01-17 11:25] VITALS: BP 122/87; PULSE 108; RESP 16; TEMP 36.4; O2SAT 97; BMI 27.3
[2024-01-17] MEDS: Buprenorphine/Naloxone 12/3 mg FILM 2 FILM SUBLINGUAL (11:58)
[2024-01-17 12:08] VITALS: BP 122/87; PULSE 108; RESP 16; TEMP 36.4; O2SAT 97
== END 2024-01-17 12:08 | disposition home or self-care (01) ==
PROVIDERS: Emergency Provider Emergency Medicine
DX: Z76.0 Encounter for issue of repeat prescription (principal)
CPT/HCPCS: 99282

== ENCOUNTER 2024-01-21 11:51 | Inpatient (IN) | payer MEDICAID, SELFPAY ==
[2024-01-21] VITALS (7 sets, daily range): BP systolic 99–122; BP diastolic 54–87; PULSE 98–111; RESP 16–25; TEMP 37.7–39.8; O2SAT 92–100; BMI 22.3; BMI 23.2
--- NOTE | ~2024-01-21 | XR_ITS ---
EXAMINATION: XR CHEST CLINICAL INFORMATION: Fever COMPARISON: Chest radiograph 11/02/2023 TECHNIQUE: Frontal view of the chest was obtained. FINDINGS: Patient is rotated to the right, slightly limiting evaluation. The lungs are hypoexpanded. Few streaky left basilar opacities. No focal consolidation. No pleural effusions or pneumothorax. The cardiomediastinal silhouette is likely within normal limits for technique. No acute osseous abnormality. XR/XR chest 1V IMPRESSION: Low lung volumes. Few streaky left basilar opacities which may be related to atelectasis although an infiltrate is not excluded. Electronically signed by: Elmer Nicole MD 01/21/2024 05:03 PM EDT
--- NOTE | 2024-01-21 12:41 | ED_ITS ---
HPI - General Adult General Chief complaint: Psychiatric Symptoms Stated complaint: Ankle pain Time Seen by Provider: 01/21/24 13:15 Source: patient and old records reviewed Mode of arrival: ambulatory Limitations: other (rude to staff and calling people nikki yelling) History of Present Illness ED Provider: JOSELIN HPI narrative: 38 yo female with PMH of chronic opiate abuse and substance abuse, bipolar disorder, prolonged qtc and hx of polymorphic VTACH, anxiety and depression, MRSA bacteremia, seizures, here with c/o wanting her medications including suboxone, gabapentin, clonazepam. She is very rude and yelling at staff. She then yells out she has gonorrhea and trichomonas but she only knows this because her boyfriend told her he has it. She notes her complaint is body pain, foot pain. She is very hard to get a history from and won't talk much or do anything unless she gets her medications - which I did order. MD complaint: body pain Onset (ago): day(s) (1) Location: right and lower extremity Radiation: non-radiation Severity: severe Quality: aching Pain Consistency: constant Relieving factors: none Exacerbating factors: movement Associated symptoms: fever/chills, loss of appetite and malaise Treatments prior to arrival: none Related Data Home Medications ?Medication ?Instructions ?Recorded ?Confirmed gabapentin 800 mg tablet 800 mg PO TID 11/03/23 12/01/23 propranolol 10 mg tablet 10 mg PO BID 11/03/23 12/01/23 baclofen 10 mg tablet 10 mg PO BID 11/17/23 12/01/23 melatonin 1 mg tablet 6 mg PO BEDTIME PRN Sleep 11/17/23 12/01/23 Previous Rx's ?Medication ?Instructions ?Recorded clonazepam 0.5 mg tablet 0.5 mg PO BID #14 tabs 11/29/23 olanzapine 5 mg tablet (Zyprexa) 5 mg PO BID #14 tabs 11/29/23 baclofen 10 mg tablet 10 mg PO BID #14 tabs 01/14/24 clonazepam 0.5 mg tablet 0.5 mg PO BID #14 tabs 01/14/24 gabapentin 800 mg tablet 800 mg PO TID #21 tabs 01/14/24 olanzapine 5 mg tablet (Zyprexa) 5 mg PO DAILY #14 tabs 01/14/24 propranolol 10 mg tablet 10 mg PO BID #14 tabs 01/14/24 Allergies Allergy/AdvReac Type Severity Reaction Status Date / Time methadone Allergy Severe Anaphylaxis Verified 01/21/24 12:37 Review of Systems 2 Review of Systems: ROS unable to be obtained due to patient is not very cooperative and yelling at [facility] Past Medical History Attestation statement: The following information was validated with the patient. Source: old records reviewed Medical History MDD (major depressive disorder), recurrent, severe, with psychosis Opioid use disorder, moderate, dependence Polysubstance abuse Cocaine use disorder History of drug dependence/abuse Atypical bipolar disorder Opiate withdrawal Acute anxiety Drug-induced psychotic disorder Depression PTSD (post-traumatic stress disorder) Anxiety Depression Social History Social History Household Members: Significant Other Household Members Other:: grandmother, uncle Housing: Other Housing Other:: Homeless Unable to assess alcohol history related to: Refusing to respond 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: never 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 Patient Tobacco Use Status: Tobacco use Unknown Tobacco use type: Cigarette Cigarette Packs Per Day: 1.5 Cigarettes Per Day: 30.0 Years Smoked: 26 e-Cigarette/Vaping Use: Never Used Second Hand Smoke Exposure: Yes Substance Use Type: Crack/Cocaine Advance Directives: No Advance Directives Information Provided: Yes Do you have a plan to hurt others: No Plan service: No Current occupational status: unemployed Sexual orientation: Don't Know Physical Exam ED Vital Signs: Vital Signs - 24 hr 01/21/24 12:34 01/21/24 13:37 01/21/24 14:58 Temperature 99.8 F 103.6 F H 103.2 F H Pulse Rate 101 H 100 111 H Respiratory Rate 20 22 H 16 Blood Pressure 119/84 111/69 99/54 L Pulse Oximetry 94 100 92 Oxygen Delivery Method Room Air Room Air Room Air BMI result Body Mass Index 22.3 Appearance: Alert. Oriented X3. aggressive angry and yelling mild acute distress. Eyes: Pupils equal, round and reactive to light. ENT: Pharynx dry MM Neck: Normal inspection. Neck supple. CVS: tachycardic heart rate and rhythm. Pulses normal. Respiratory: No respiratory distress. Breath sounds normal. Abdomen: Soft and nontender. Skin: Skin warm and dry. Normal skin color. diffuse picked areas with scabbing, both feet are warm to touch with excoriated red and inflammed lesions on both anterior shins, no swelling of knee or ankle joints to suggest septic joint she is very hard to examine. compartments are soft and compressible Extremities: No lower extremity edema. No calf ttp Neuro: Oriented X 3. No motor deficit. No sensory deficit. Course Course Course Narrative: RME, this is a rapid medical exam performed by Tan Murillo please refer to primary provider for complete H&P- 38-year-old female presents for evaluation of ?pain all over. ? she reports that she has not been taking antipsychotic medication. She also reports that she was suicidal because ?I can not take this anymore. ? Plan for medical clearance and care team evaluation Reevaluation(s) Reevaluation #1: gonorrhea covered with ceftriaxone flagyl covers trich Reevaluation #2: patient again verbally abusive to staff calling them fuckers because they didn't get her crackers quick enough Medications Administered Discontinued Medications Generic Name Dose Route Start Last Admin Trade Name Radha PRN Reason Stop Dose Admin Acetaminophen 975 mg 01/21/24 13:34 01/21/24 13:52 Acetaminophen 325 Mg Tablet PO 01/21/24 13:35 975 mg ONCE ONE Administration Buprenorphine/Naloxone 1 film 01/21/24 13:35 01/21/24 13:53 Buprenorphine/Naloxone 12/3 Mg Film SUBLINGUAL 01/21/24 13:36 1 film ONCE ONE Administration Buprenorphine/Naloxone 1 film 01/21/24 13:35 01/21/24 13:55 Buprenorphine/Naloxone 12/3 Mg Film SUBLINGUAL 01/21/24 13:36 Not Given ONCE ONE Ceftriaxone Sodium 2 gm 01/21/24 13:34 01/21/24 14:30 Ceftriaxone Sodium 2 Gm Vial IVPUSH 01/21/24 13:35 2 gm ONCE ONE Administration Clonazepam 0.5 mg 01/21/24 13:39 01/21/24 13:52 Clonazepam 0.5 Mg Tablet PO 01/21/24 13:40 0.5 mg ONCE ONE Administration Gabapentin 800 mg 01/21/24 14:00 01/21/24 13:57 Gabapentin 400 Mg Capsule PO 01/21/24 14:01 800 mg ONCE ONE Administration Vancomycin HCl 1,500 mg/ 500 mls @ 333.333 mls/hr 01/21/24 13:34 01/21/24 16:16 Sodium Chloride IV 01/21/24 15:03 Infused ONCE ONE Infusion Sodium Chloride 1,000 mls @ 999 mls/hr 01/21/24 15:02 01/21/24 15:11 Ns IV 01/21/24 16:02 999 mls/hr .Q1H1M ONE Administration Metronidazole 2,000 mg 01/21/24 14:19 01/21/24 14:36 Metronidazole 500 Mg Tablet PO 01/21/24 14:20 2,000 mg ONCE ONE Administration Medical Decision Making Medical Decision Making MDM Narrative: 38 yo female with PMH of chronic opiate abuse and substance abuse, bipolar disorder, prolonged qtc and hx of polymorphic VTACH, anxiety and depression, MRSA bacteremia, seizures, here with c/o agitation, very angry and delaying her care she refuses exam and work up until we give her medications which was ordered on arrival. She is febrile. I have ordered empiric ceftriaxone, vancomycin, flagyl (trich exposure). She has no complaints right now but she is not a very good historian and she is screaming at staff. Suspect bacteremia, cellulitis, endocarditis, UTI Differential Diagnosis Differential Diagnoses: The differential diagnosis associated with the presentation includes bacteremia, cellulitis, endocarditis, UTI Admission/Observation Consideration of admission/observation: Escalation of care including admission/observation considered unknown source of fever in IVDA she does not report back pain she c/o foot pain and states her whole body hurts. I have no obvious source at this time started on empiric abx possible mild L lower leg cellulitis compartments soft CPK normal and no signs of abscess I asked her if she wants to stay given her hx of AMA and she reports she does plan to admit I tried to involve addiction medicine early on but she is states she doesn't feel good and was verbally assaultive to her Consult Healthcare Provider Management of the patient was discussed with: Hospitalist (will admit) Lab Data MDM Lab Attestation statement: I reviewed the patient's lab results. 01/21/24 14:09 01/21/24 14:09 Labs: Lab Results 01/21/24 01/21/24 01/21/24 Range/Units 14:09 14:13 14:33 WBC 7.4 (4.8-10.8) X10*3/uL RBC 3.58 L (4.20-5.50) X10*6/uL Hgb 9.9 L (12.0-16.0) g/dl Hct 30.4 L (37.0-47.0) % MCV 84.9 (80.0-98.0) fL MCH 27.7 (27.0-33.0) pg MCHC 32.6 (31.0-35.0) g/dl RDW 15.9 (11.0-16.0) % Plt Count 225 (160-400) X10*3/uL MPV 9.8 (9.4-12.3) fL Immature Gran % (Auto) 0.4 (0.0-0.4) % Neut % (Auto) 79.6 H (45-73) % Lymph % (Auto) 12.6 L (20-40) % [place] % (Auto) 7.2 (2-11) % Eos % (Auto) 0.1 (0-4) % Baso % (Auto) 0.1 (0-2) % Lymph # (Auto) 0.9 L (1.2-4.9) X10*3/uL [place] # (Auto) 0.5 (0.1-1.2) X10*3/uL Eos # (Auto) 0.0 (0.0-0.4) X10*3/uL Baso # (Auto) 0.0 (0.0-0.2) X10*3/uL Abs Immat Gran (auto) 0.03 (0.00-0.03) X10*3/uL Absolute Neuts (auto) 5.9 (2.0-8.3) x10*3/uL Absolute Nucleated RBC 0.000 (0.0-0.012) X10*3/uL Nucleated RBC % (auto) 0.0 (0.0-0.2) /100WBC ESR 31 H (0-20) MM/HR Sodium 135 (135-145) mmol/L Potassium 3.5 (3.3-5.1) mmol/L Chloride 99 (96-108) mmol/L Carbon Dioxide 25 (22-29) mmol/L Anion Gap 15 (12-20) BUN 13 (9-16) mg/dL Creatinine 0.70 (0.5-1.4) mg/dL Estim Creat Clear Calc 94.9 Estimated GFR > 60 Random Glucose 113 (60-115) mg/dL Lactic Acid (0.5-2.0) mmol/L Calcium 9.3 (8.4-10.2) mg/dL Total Bilirubin 0.5 (0.0-1.0) mg/dL AST 29 (5-31) U/L ALT 11 (0-31) U/L Alkaline Phosphatase 60 (39-117) U/L Total Creatine Kinase 185 H (26-140) U/L C-Reactive Protein 7.53 H (< or = 0.50) mg/dL Total Protein 7.4 (6.5-8.0) g/dL Albumin 4.2 (3.5-5.0) g/dL Beta HCG, Quant < 2 mIU/mL Urine Color Urine Appearance Urine pH (5.0-9.0) Ur Specific [place] (1.005-1.025) Urine Protein (Neg-Trace) mg/dL Urine Glucose (UA) (Negative) mg/dL Urine Ketones (Negative) mg/dL Urine Blood (Negative) Urine Nitrite (Negative) Ur Leukocyte Esterase (Negative) Urine RBC (0-2) /HPF Urine WBC (0-5) /HPF Ur Squamous Epith Cells (0-2) /HPF Urine Bacteria (None Seen) Hyaline Casts (0-2) /LPF Urine Test (NEGATIVE) Salicylates < 5.0 L (15-30) mg/dL Acetaminophen 10 (<30) mcg/mL Ethyl Alcohol < 10 mg/dL Influenza Type A (PCR) NEGATIVE (Negative) Influenza Type B (PCR) NEGATIVE (Negative) RSV RNA Qual (PCR) NEGATIVE (Negative) SARS-CoV-2 RNA (RT-PCR) NEGATIVE (Negative) 01/21/24 01/21/24 Range/Units 15:48 Unknown WBC (4.8-10.8) X10*3/uL RBC (4.20-5.50) X10*6/uL Hgb (12.0-16.0) g/dl Hct (37.0-47.0) % MCV (80.0-98.0) fL MCH (27.0-33.0) pg MCHC (31.0-35.0) g/dl RDW (11.0-16.0) % Plt Count (160-400) X10*3/uL MPV (9.4-12.3) fL Immature Gran % (Auto) (0.0-0.4) % Neut % (Auto) (45-73) % Lymph % (Auto) (20-40) % [place] % (Auto) (2-11) % Eos % (Auto) (0-4) % Baso % (Auto) (0-2) % Lymph # (Auto) (1.2-4.9) X10*3/uL [place] # (Auto) (0.1-1.2) X10*3/uL Eos # (Auto) (0.0-0.4) X10*3/uL Baso # (Auto) (0.0-0.2) X10*3/uL Abs Immat Gran (auto) (0.00-0.03) X10*3/uL Absolute Neuts (auto) (2.0-8.3) x10*3/uL Absolute Nucleated RBC (0.0-0.012) X10*3/uL Nucleated RBC % (auto) (0.0-0.2) /100WBC ESR (0-20) MM/HR Sodium (135-145) mmol/L Potassium (3.3-5.1) mmol/L Chloride (96-108) mmol/L Carbon Dioxide (22-29) mmol/L Anion Gap (12-20) BUN (9-16) mg/dL Creatinine (0.5-1.4) mg/dL Estim Creat Clear Calc Estimated GFR Random Glucose (60-115) mg/dL Lactic Acid 0.9 (0.5-2.0) mmol/L Calcium (8.4-10.2) mg/dL Total Bilirubin (0.0-1.0) mg/dL AST (5-31) U/L ALT (0-31) U/L Alkaline Phosphatase (39-117) U/L Total Creatine Kinase (26-140) U/L C-Reactive Protein (< or = 0.50) mg/dL Total Protein (6.5-8.0) g/dL Albumin (3.5-5.0) g/dL Beta HCG, Quant mIU/mL Urine Color [place] A Urine Appearance Clear Urine pH 6.0 (5.0-9.0) Ur Specific [place] 1.010 (1.005-1.025) Urine Protein 30 (1+) H (Neg-Trace) mg/dL Urine Glucose (UA) Negative (Negative) mg/dL Urine Ketones Trace (Negative) mg/dL Urine Blood Large (3+) H (Negative) Urine Nitrite Negative (Negative) Ur Leukocyte Esterase Trace H (Negative) Urine RBC >20 H (0-2) /HPF Urine WBC 0-5 (0-5) /HPF Ur Squamous Epith Cells 0-2 (0-2) /HPF Urine Bacteria None Seen (None Seen) Hyaline Casts 0-2 (0-2) /LPF Urine Test NEGATIVE (NEGATIVE) Salicylates (15-30) mg/dL Acetaminophen (<30) mcg/mL Ethyl Alcohol mg/dL Influenza Type A (PCR) (Negative) Influenza Type B (PCR) (Negative) RSV RNA Qual (PCR) (Negative) SARS-CoV-2 RNA (RT-PCR) (Negative) Independent Interpretation I performed an independent interpretation of an: EKG and Plain X-Ray (no consolidation noted) Interpretation: Rate: 104 Rhythm: sinus tach [place]:left Normal P waves. Normal YAYO. Normal QRS complex. ST T wave : nonspecific ST T wave changes ant inf lead but artifact noted no TREASURE qTC: 462 prior studies: no sig change from prior The study has been interpreted contemporaneously by me. . Radiology Impression Discussion of test interpretation with radiology: I have reviewed the radiologist's reading. External Record Review External record reviewed: Inpatient record and Outpatient record Social Determinants Patient?s care significantly limited by Social Determinants of Health including: Inadequate housing, Low income, Problems related to primary support group and Unemployment Discharge Plan Discharge Clinical Impression: Fever and chills, Exposure to STD, Drug abuse, IV Cellulitis Qualifiers: Site of cellulitis: extremity Site of cellulitis of extremity: lower extremity Laterality: left Qualified Code(s): L03.116 - Cellulitis of left lower limb Patient Disposition: Admitted As Inpatient Interventions: [place]-Suicide Risk Severity Scale Last Done: 01/21/24 15:03 Print Language: Andorran
--- NOTE | 2024-01-21 13:39 | MHC.EDTECH ---
Patient is refusing to have labs drawn.
[2024-01-21] MEDS: clonazePAM 0.5 MG TABLET PO ×2 (13:52→22:34)
[2024-01-21] MEDS: Acetaminophen 325 MG TABLET 975 MG PO (13:52)
[2024-01-21] MEDS: Buprenorphine/Naloxone 12/3 mg FILM 1 FILM SUBLINGUAL (13:53)
--- NOTE | 2024-01-21 13:55 | PC.NURSE ---
pt a&o, being uncooporative, refusing to allow blood draws or iv to be inserted until she got all her medications- this nurse was able to obtain most medications and had to call pharmacy for the gabapentin- we told them it needs to be stat. pt tearful and stating she is a difficult stick and they have to get her IV in her foot. we will pt has been medicated for fever 1:1 sitter at bedside
[2024-01-21] MEDS: Gabapentin 400 MG CAPSULE 800 MG PO ×2 (13:57→22:33)
[2024-01-21 14:20] LABS: MANUAL DIFF FLAG NO
[2024-01-21 14:22] LABS: Basophils Percent Auto 0.1 % (0-2); Eosinophils Percent Auto 0.1 % (0-4); Hematocrit 30.4 % (37.0-47.0); Hemoglobin 9.9 g/dl (12.0-16.0); Imm Gran Abs Auto 0.03 X10*3/uL (0.00-0.03); Imm Gran Pct Auto 0.4 % (0.0-0.4); Lymphocytes Absolute Auto 0.9 X10*3/uL (1.2-4.9); Lymphocytes Percent Auto 12.6 % (20-40); Mean Corpuscular HGB Conc 32.6 g/dl (31.0-35.0); Mean Corpuscular Hemoglobin 27.7 pg (27.0-33.0); Mean Corpuscular Volume 84.9 fL (80.0-98.0); Mean Platelet Volume 9.8 fL (9.4-12.3); Monocytes Absolute Auto 0.5 X10*3/uL (0.1-1.2); Monocytes Percent Auto 7.2 % (2-11); Neutrophils Absolute Auto 5.9 x10*3/uL (2.0-8.3); Neutrophils Percent Auto 79.6 % (45-73); Platelet Count 225 X10*3/uL (160-400); Red Blood Count 3.58 X10*6/uL (4.20-5.50); Red Cell Distribution Width 15.9 % (11.0-16.0); White Blood Count 7.4 X10*3/uL (4.8-10.8)
[2024-01-21] MEDS: cefTRIAXone sodium 2 GM VIAL IVPUSH (14:30)
[2024-01-21 14:34] LABS: Lactic Acid 0.9 mmol/L (0.5-2.0)
[2024-01-21] MEDS: metroNIDAZOLE 500 MG TABLET 2000 MG PO (14:36)
[2024-01-21 14:37] LABS: C Reactive Protein 7.53 mg/dL (< or = 0.50)
[2024-01-21 14:40] LABS: Acetaminophen LAB 10 mcg/mL (<30); Alanine Aminotransferase 11 U/L (0-31); Albumin Level 4.2 g/dL (3.5-5.0); Alkaline Phosphatase 60 U/L (39-117); Anion Gap 15 (12-20); Aspartate Amino Transferase 29 U/L (5-31); Bilirubin Total 0.5 mg/dL (0.0-1.0); Blood Urea Nitrogen 13 mg/dL (9-16); Calcium 9.3 mg/dL (8.4-10.2); Carbon Dioxide 25 mmol/L (22-29); Chloride 99 mmol/L (96-108); Creatinine Clr Calc Pharmacy 94.9; Estimated Glomerular Filt Rate > 60; Ethanol < 10 mg/dL; Glucose Random 113 mg/dL (60-115); Potassium 3.5 mmol/L (3.3-5.1); Salicylate < 5.0 mg/dL (15-30); Sodium 135 mmol/L (135-145); Total Protein 7.4 g/dL (6.5-8.0)
[2024-01-21] MEDS: vancomycin HCL 1,500 MG in 0.9 % Sodium Chloride 500 ML 333.33 MG IV (14:45)
--- NOTE | 2024-01-21 15:04 | PC.NURSE ---
pt currently sleeping, moved from 6H to room 6 placed on bridge mechanic- pt sinus tach on monitor, pt O2 sat reduced to 88% on room air while sleeping, 2L NC placed-provider notified. pts O2 sat increased to 94%. pt also noted to be mildly hypotensive- provider is aware. as previously stated pt is very difficult stick, pts IV access was obtained by a provider via ultrasound, pt was medicated as soon as access was obtained.
[2024-01-21] MEDS: 0.9 % Sodium Chloride 1,000 ML 999 ML IV (15:11)
--- NOTE | 2024-01-21 15:12 | PC.NURSE ---
ivf started per orders
[2024-01-21 15:16] LABS: Influenza A PCR NEGATIVE (Negative); Influenza B PCR NEGATIVE (Negative); Resp Syncy Virus RNA Qual PCR NEGATIVE (Negative); SARS COV2 PCR INHOUSE NEGATIVE (Negative)
[2024-01-21 15:29] LABS: Erythrocyte Sedimentation Rate 31 MM/HR (0-20)
[2024-01-21 15:57] LABS: UPreg QC Valid YES; Urine Pregnancy NEGATIVE (NEGATIVE)
[2024-01-21 16:00] LABS: HCG Quantitative < 2 mIU/mL
[2024-01-21 16:01] LABS: Appearance Urine Clear; Color Urine Orange; Glucose Urine UA Negative (Negative); Leukocyte Esterase Urine Trace (Negative); Nitrite Urine Negative (Negative); UMIC TRIGGER UA YES; Urine Blood Large (3+) (Negative); Urine Ketones Trace mg/dL (Negative); Urine Protein 30 (1+) mg/dL (Neg-Trace)
[2024-01-21 16:02] LABS: Bacteria Urine None Seen (None Seen); Hyaline Casts Urine 0-2 /LPF (0-2); RBC Urine >20 /HPF (0-2); Squamous Epithelial Cell Urine 0-2 /HPF (0-2); WBC Urine 0-5 /HPF (0-5)
--- NOTE | 2024-01-21 16:18 | ECG_ITS ---
Test Reason : SEPSIS Blood Pressure : / mmHG Vent. Rate : 104 BPM Atrial Rate : 104 BPM P-R Int : 122 ms QRS Dur : 078 ms QT Int : 352 ms P-R-T Axes : 036 -35 036 degrees QTc Int : 462 ms Sinus tachycardia Left axis deviation T wave abnormality, consider anterior ischemia Abnormal ECG When compared with ECG of 01-DEC-2023 12:16, T wave inversion more evident in Anterior leads Referred By: Teagan Sharpe Electronically Signed By:Richard Plascencia
--- NOTE | 2024-01-21 16:28 | PM.IMHP ---
History of Present Illness Date of Service: 01/21/24 Attending physician on admission: Melissa Thornton Chief Complaint: Body pain Pt is a 38-year-old female with a PMH significant for?polysubstance use disorder, IVDU, hx polymorphic V-tach, MRSA bacteremia, anxiety, depression, and bipolar disorder who presents to the ED with?all-over body pain. Patient is seen and evaluated at bedside where she is somnolent but arousable. When awake patient is screaming, crying, yelling, and demanding medications, crackers, and hot tea. Patient complains of pain ?everywhere? and especially in her feet, though does not answer any other ROS queries. Patient is otherwise unwilling/unable to provide any addition meaningful HPI. Patient is well-known to this facility and has presented many times prior. Has a history of combative/unruly behavior requiring chemical restraints, and history of leaving AMA. Initially upon presenting to the ED indicated she had gonorrhea and Trichomonas from her current boyfriend. Provided reassurances to the ED provider she wished to be admitted to the hospital and would not leave AMA. In the ED pt was febrile up to 103.6, tachycardic up to 111, tachypneic up to 22, and was soft BP as low as 99/54. Labs were significant for ESR of 31, CRP 7.53, and CPK of 185. Lactic acid wnl No leukocytosis. Stable normocytic anemia of 9.9/30.4, at baseline. No electrolyte abnormalities. Renal function baseline. Hepatic function WNL. UA not consistent with acute UTI. Tested negative for flu, COVID, RSV. Gonorrhea and chlamydia pending. CXR showed low lung volumes with streaky left basilar opacity likely atelectasis though infiltrate can not be excluded. EKG demonstrated sinus tachycardia of 122 with T-wave inversions anterior leads but no evidence of ST elevations or depressions. Pt was treated with acetaminophen, clonazepam, Suboxone, gabapentin, metronidazole, IVF, ceftriaxone, and vancomycin. Pt will be admitted to the hospital for treatment and further evaluation of sepsis likely secondary to bacteremia. Review of Systems Review of Systems: Patient complains of all-over body pain, especially in feet Patient otherwise unwilling to participate in meaningful ROS [facility] Medical History MDD (major depressive disorder), recurrent, severe, with psychosis Opioid use disorder, moderate, dependence Polysubstance abuse Cocaine use disorder History of drug dependence/abuse Atypical bipolar disorder Opiate withdrawal Acute anxiety Drug-induced psychotic disorder Depression PTSD (post-traumatic stress disorder) Anxiety Depression Social History Household Members: Significant Other Household Members Other:: grandmother, uncle Housing: Other Housing Other:: Homeless Unable to assess alcohol history related to: Refusing to respond 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: never 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 Patient Tobacco Use Status: Tobacco use Unknown Tobacco use type: Cigarette Cigarette Packs Per Day: 1.5 Cigarettes Per Day: 30.0 Years Smoked: 26 e-Cigarette/Vaping Use: Never Used Second Hand Smoke Exposure: Yes Substance Use Type: Crack/Cocaine Advance Directives: No Advance Directives Information Provided: Yes Do you have a plan to hurt others: No Plan service: No Current occupational status: unemployed Sexual orientation: Don't Know Meds Allergies Allergy/AdvReac Type Severity Reaction Status Date / Time methadone Allergy Severe Anaphylaxis Verified 01/21/24 12:37 Home Medications ?Medication ?Instructions ?Recorded ?Confirmed ?Last Taken ?Type melatonin 1 mg tablet 6 mg PO BEDTIME PRN Sleep 11/17/23 01/21/24 11/28/23 History buprenorphine 8 mg-naloxone 2 mg 3 film sublingual DAILY 01/21/24 01/21/24 Unknown History sublingual film (Suboxone) Physical Exam Vital Signs and Narrative: Vital Signs: Last Vital Signs Temp 103.2 F H 01/21/24 14:58 Pulse 111 H 01/21/24 14:58 Resp 16 01/21/24 14:58 BP 99/54 L 01/21/24 14:58 Pulse Ox 92 01/21/24 14:58 O2 Del Method Room Air 01/21/24 14:58 BMI result Body Mass Index 22.3 General: Somnolent but arousable, emotionally labile, screaming, yelling. In no acute distress Resp: CTA bilaterally CVS: S1, S2, RRR GI: +BS, NT, no distention Skin: Numerous track and pick nieves on upper and lower extremities. No clear signs of cellulitis or abscess Neuro: Cranial nerves II-XII grossly intact bilaterally. Motor grossly intact bilaterally Extremities: No edema Results Labs 01/21/24 14:09 01/21/24 14:09 Labs: Laboratory Results - last 24 hr 01/21/24 01/21/24 01/21/24 14:09 14:13 14:33 MCV 84.9 MCH 27.7 MCHC 32.6 RDW 15.9 Plt Count 225 MPV 9.8 Immature Gran % (Auto) 0.4 Neut % (Auto) 79.6 H Lymph % (Auto) 12.6 L [place] % (Auto) 7.2 Eos % (Auto) 0.1 Baso % (Auto) 0.1 Lymph # (Auto) 0.9 L [place] # (Auto) 0.5 Eos # (Auto) 0.0 Baso # (Auto) 0.0 Abs Immat Gran (auto) 0.03 Absolute Neuts (auto) 5.9 Absolute Nucleated RBC 0.000 Nucleated RBC % (auto) 0.0 ESR 31 H Anion Gap 15 Estim Creat Clear Calc 94.9 Estimated GFR > 60 Random Glucose 113 Lactic Acid Calcium 9.3 Total Bilirubin 0.5 AST 29 ALT 11 Alkaline Phosphatase 60 Total Creatine Kinase 185 H C-Reactive Protein 7.53 H Total Protein 7.4 Albumin 4.2 Beta HCG, Quant < 2 Urine Color Urine Appearance Urine pH Ur Specific [place] Urine Protein Urine Glucose (UA) Urine Ketones Urine Blood Urine Nitrite Ur Leukocyte Esterase Urine RBC Urine WBC Ur Squamous Epith Cells Urine Bacteria Hyaline Casts Urine Test Salicylates < 5.0 L Acetaminophen 10 Ethyl Alcohol < 10 Influenza Type A (PCR) NEGATIVE Influenza Type B (PCR) NEGATIVE RSV RNA Qual (PCR) NEGATIVE SARS-CoV-2 RNA (RT-PCR) NEGATIVE 01/21/24 01/21/24 15:48 Unknown MCV MCH MCHC RDW Plt Count MPV Immature Gran % (Auto) Neut % (Auto) Lymph % (Auto) [place] % (Auto) Eos % (Auto) Baso % (Auto) Lymph # (Auto) [place] # (Auto) Eos # (Auto) Baso # (Auto) Abs Immat Gran (auto) Absolute Neuts (auto) Absolute Nucleated RBC Nucleated RBC % (auto) ESR Anion Gap Estim Creat Clear Calc Estimated GFR Random Glucose Lactic Acid 0.9 Calcium Total Bilirubin AST ALT Alkaline Phosphatase Total Creatine Kinase C-Reactive Protein Total Protein Albumin Beta HCG, Quant Urine Color [place] A Urine Appearance Clear Urine pH 6.0 Ur Specific [place] 1.010 Urine Protein 30 (1+) H Urine Glucose (UA) Negative Urine Ketones Trace Urine Blood Large (3+) H Urine Nitrite Negative Ur Leukocyte Esterase Trace H Urine RBC >20 H Urine WBC 0-5 Ur Squamous Epith Cells 0-2 Urine Bacteria None Seen Hyaline Casts 0-2 Urine Test NEGATIVE Salicylates Acetaminophen Ethyl Alcohol Influenza Type A (PCR) Influenza Type B (PCR) RSV RNA Qual (PCR) SARS-CoV-2 RNA (RT-PCR) Assessment and Plan (1) Sepsis: Status: Acute Plan Pt is a 38-year-old female with a PMH significant for?polysubstance use disorder, IVDU, hx polymorphic V-tach, MRSA bacteremia, anxiety, depression, and bipolar disorder who presents to the ED with?all-over body pain. Pt will be admitted to the hospital for treatment and further evaluation of sepsis likely secondary to bacteremia. Sepsis Likely secondary to bacteremia from IVDU Patient with fever, tachycardia, tachypnea; lactic acid WNL at 0 point Patient given IVF and started on broad-spectrum antibiotics in the ED Will empirically treat with ceftriaxone and vancomycin while awaiting blood cultures, started 01/21/2024 Question of STI Pt reports partner being diagnosed with gonorrhea/chlamydia and Trichomonas Received metronidazole 2 g in the ED Results pending Continue empiric abx as above IVDU Addiction medicine consult HTN Continue propranolol Peripheral neuropathy Continue gabapentin Mood disorder Continue clonazepam, olanzapine Full Code Attending:?Dr. Thornton DVT Prophylaxis: Lovenox Pt will require a hospitalization of at least two nights for treatment of?sepsis likely secondary to bacteremia from IVDU with IV antibiotics. Quality Stroke Does the patient have a stroke diagnosis?: No VTE Prior VTE?: No VTE Risk Level:: Medical - moderate - high VTE Device Contraindication: Treatment Not Indicated VTE Drug Contraindication: N/A - Med Ordered
[2024-01-21 16:30] LABS: Amphetamine Screen Urine Not Detected (Not Detect); Barbiturates, Urine Not Detected (Not Detect); Benzodiazepines Screen Urine Not Detected (Not Detect); Buprenorphine Scr Positive (Not Detect); Cannabinoid Screen Urine Not Detected (Not Detect); Cocaine Screen Urine POSITIVE (Not Detect); Fentanyl, urine POSITIVE (Not Detect); Methadone Screen, Urine Not Detected (Not Detect); Opiate Screen Urine Not Detected (Not Detect); Oxycodone Screen Urine Not Detected (Not Detect); Phencyclidine Screen Urine Not Detected (Not Detect)
--- NOTE | 2024-01-21 16:32 | PC.NURSE ---
ivf continue to run slowly, ekg performed
--- NOTE | 2024-01-21 17:06 | PC.NURSE ---
pt is screaming and threatening staff, pt incontinent, full bed change performed, hospitalist notified of pt behavior, awaiting orders
--- NOTE | 2024-01-21 17:10 | PHA.MEDREC ---
Addendum entered by Mathew Isaac [facility] 01/21/24 18:39: MED REC CHECKED BY [facility] Addendum entered by Stephany Mallory 01/21/24 17:20: Patient boyfriend states she was taking Suboxone but did not know the dosing. He states she is filling those at [facility] on [address] in [place]. We looking [facility] [facility] and it states she a Suboxone 8-2mg dosing and a qty of 24 for 8 days on 01/12 and in claims that matched. I called [facility] on [address] and they confirmed she got Suboxone 8-2mg films 01/14 3 films daily for 8 days. Original Note: Pharmacy Consult ? Medication Reconciliation Pharmacy has completed the medication reconciliation. Patient agitated and was not able to speak to. I called her only contact on file Leonidas her boyfriend and he was not sure what she was taking for medications. I utilized claims and a [employer] packet from 12/02 to confirm med rec.
[2024-01-21] MEDS: 0.9 % Sodium Chloride 1,000 ML 100 ML IVCONT (17:17)
[2024-01-21] MEDS: Enoxaparin Sodium 40 MG/0.4 ML SYRINGE SUBCUT (17:42)
[2024-01-21 17:51] LABS: CT PCR NOT DETECTED (Not Detect.); NG PCR NOT DETECTED (Not Detect.)
--- NOTE | 2024-01-21 17:52 | PHA.PROG ---
Admission Date/Time: January 21, 2024 16:58 Indication: Bacteremia Weight in k.967 kg Adjusted body weight in K.407 kg Serum Creatinine - Last 168 Hours 01/21/24 14:09 Creatinine 0.70 Estimated CrCl and GFR - Last 168 Hours 01/21/24 14:09 Estim Creat Clear Calc 94.9 Estimated GFR > 60 Vancomycin Loading Dose: 1,500 mg Current Vancomycin Dosing Regimen: 750 mg q8h Vancomycin Monitoring using AUC goal of 400 - 600 range with trough as surrogate marker: 564, predicted trough 18.3 Date and Time for next Vancomycin Level to be drawn: 01/21 @ 1300 Pharmacist Comments on Vancomycin Plan: Did q8h dosing due to indication. Vancomycin dosing will take advantage of [employer] as a clinical decision support tool that uses Bayesian modeling to calculate individual patient's pharmacokinetic parameters and forecast the patient's drug concentration time course with the target goal AUC 24 range of 400 - 600 mg/L/hr.
--- NOTE | 2024-01-21 20:00 | PC.NURSE ---
Report taken from Ale DYER, assumed care of pt at this time. Resting on stretcher, NAD, sinus tach on monitor. IVF infusing without difficulty. Pt observer at bedside for safety, safety maintained. Bed assignment received, awaiting transport to floor.
[2024-01-21] MEDS: Acetaminophen 325 MG TABLET 650 MG PO (22:33)
[2024-01-21] MEDS: OLANZapine 5 MG TABLET PO (22:33)
[2024-01-21] MEDS: Propranolol HCL 10 MG TABLET PO (22:33)
[2024-01-21] MEDS: Baclofen 10 MG TABLET PO (22:34)
[2024-01-21] MEDS: vancomycin HCL 750 MG in 0.9 % Sodium Chloride 250 ML 265 MG IV (22:34)
[2024-01-21] MEDS: 0.9 % Sodium Chloride Flush 3 ML SYRINGE IVFLUSH (22:35)
[2024-01-22 03:21] VITALS: BP 126/84; PULSE 84; RESP 23; TEMP 36.5; O2SAT 94
[2024-01-22] MEDS: vancomycin HCL 750 MG in 0.9 % Sodium Chloride 250 ML 265 MG IV (06:14)
[2024-01-22] MEDS: ondansetron HCL 4 MG/2 ML VIAL IVPUSH ×3 (06:17→20:10)
[2024-01-22 07:31] VITALS: BP 110/69; PULSE 83; RESP 18; TEMP 37.1; O2SAT 95
[2024-01-22] MEDS: OLANZapine 5 MG TABLET PO ×2 (08:31→20:05)
[2024-01-22] MEDS: clonazePAM 0.5 MG TABLET PO ×2 (08:31→20:05)
[2024-01-22] MEDS: Gabapentin 400 MG CAPSULE 800 MG PO ×3 (08:31→20:05)
[2024-01-22] MEDS: Propranolol HCL 10 MG TABLET PO ×2 (08:31→20:05)
[2024-01-22] MEDS: Baclofen 10 MG TABLET PO ×2 (08:31→20:05)
[2024-01-22] MEDS: 0.9 % Sodium Chloride Flush 3 ML SYRINGE IVFLUSH ×3 (08:32→20:06)
[2024-01-22] MEDS: Buprenorphine/Naloxone 8/2 mg FILM 3 FILM SUBLINGUAL (08:33)
--- NOTE | 2024-01-22 08:49 | MHC.CM.PN ---
Addendum entered by Cary Pierce 01/22/24 08:56: HCP is Ex-/Ayad. Original Note: CM met with Patient at bedside. Patient lives in an apartment with her Grandmother and she is functionally independent. Patient has a history of IVDA and obtains her Suboxone from [facility]. DC plan is TBD(? of LT IVABT IN A SNF); CM has initiated and will follow for dc planning. Patient may benefit from a Recovery Team Consult. Patient has no PCP(PCP pamphlet to be given to Patient) and she will likely require assist with transport.
--- NOTE | 2024-01-22 10:18 | P.PNIM_ITS ---
Subjective Subjective Date of Service: 01/22/24 Interval History: Seen and evaluated this morning No more fever overnight 1 set of cultures growing MRSA Denies any suicidal ideation or plan No other events Review of Systems Review of Systems: Yes all other systems are reviewed and are negative Physical Exam 2 Vital Signs: Vital Signs: Last Vital Signs Temp 98.8 F 01/22/24 07:31 Pulse 83 01/22/24 07:31 Resp 18 01/22/24 07:31 BP 110/69 01/22/24 07:31 Pulse Ox 95 01/22/24 07:31 O2 Del Method Room Air 01/22/24 07:31 O2 Flow Rate 3 01/22/24 03:21 BMI result Body Mass Index 23.2 Const: Other: Constitutional : Awake, interactive, uncomfortable, not in distress Neck : Normal inspection, Supple Cardiovascular : RRR, no JVP, no lower extremity edema Respiratory : good bilateral air entry, no crackles, wheezes or rhonchi Gastrointestinal: soft, lax, Normal bowel sounds, Non tender Skin : Warm, Dry, multiple injection nieves in upper and lower extremities, signs of skin picking, Neurological : Alert & oriented x3, No focal deficit Objective Data Active Medications Acetaminophen (Acetaminophen 325 Mg Tablet) 650 mg PO Q6H PRN PRN Reason: Pain, Mild (Pain Scale 1-3), fever or headache Last Admin: 01/21/24 22:33 Dose: 650 mg Documented By: EMETERIO Baclofen (Baclofen 10 Mg Tablet) 10 mg PO BID [facility] Last Admin: 01/22/24 08:31 Dose: 10 mg Documented By: NAE Benzonatate (Benzonatate 100 Mg Capsule) 100 mg PO TID PRN PRN Reason: Cough Buprenorphine/Naloxone (Buprenorphine/Naloxone 8/2 Mg Film) 3 film SUBLINGUAL DAILY [facility] Last Admin: 01/22/24 08:33 Dose: 1 film Documented By: NAE Comments: per patient request Calcium Carbonate (Calcium Carbonate 750 Mg Tab.Chew) 750 mg PO Q4H PRN PRN Reason: Heartburn Ceftriaxone Sodium (Ceftriaxone Sodium 1 Gm Vial) 1 gm IVPUSH Q24H [facility] Clonazepam (Clonazepam 0.5 Mg Tablet) 0.5 mg PO BID [facility] Last Admin: 01/22/24 08:31 Dose: 0.5 mg Documented By: NAE Enoxaparin Sodium (Enoxaparin Sodium 40 Mg/0.4 Ml Syringe) 40 mg SUBCUT Q24H [facility] Last Admin: 01/21/24 17:42 Dose: 40 mg Documented By: JOHNATHON Gabapentin (Gabapentin 400 Mg Capsule) 800 mg PO TID [facility] Last Admin: 01/22/24 08:31 Dose: 800 mg Documented By: NAE Vancomycin HCl 750 mg/ Sodium (Chloride) 265 mls @ 265 mls/hr IV Q8H [facility] Last Infusion: 01/22/24 08:37 Dose: Infused Documented By: NAE Magnesium Hydroxide (Milk Of Magnesia 30 Ml Oral.Susp) 30 ml PO DAILY PRN PRN Reason: Constipation Melatonin (Melatonin 3 Mg Tablet) 6 mg PO BEDTIME PRN PRN Reason: Insomnia Olanzapine (Olanzapine 5 Mg Tablet) 5 mg PO BID [facility] Last Admin: 01/22/24 08:31 Dose: 5 mg Documented By: NAE Ondansetron HCl (Ondansetron Hcl 4 Mg/2 Ml Vial) 4 mg IVPUSH Q8H PRN PRN Reason: Nausea and Vomiting Last Admin: 01/22/24 06:17 Dose: 4 mg Documented By: EMETERIO Pharmacy Consult (Consult Rx Vancomycin Dosing) 1 each MISCELLANE DAILY PRN PRN Reason: Consult order Propranolol HCl (Propranolol Hcl 10 Mg Tablet) 10 mg PO BID [facility]; Protocol Last Admin: 01/22/24 08:31 Dose: 10 mg Documented By: NAE Sodium Chloride (0.9 % Sodium Chloride Flush 3 Ml Syringe) 3 ml IVFLUSH QSHIFT [facility] Last Admin: 01/22/24 08:32 Dose: 3 ml Documented By: NAE Labs 01/21/24 14:09 01/21/24 14:09 Labs: Laboratory Results - last 24 hr 01/21/24 01/21/24 01/21/24 14:09 14:13 14:33 MCV 84.9 MCH 27.7 MCHC 32.6 RDW 15.9 Plt Count 225 MPV 9.8 Immature Gran % (Auto) 0.4 Neut % (Auto) 79.6 H Lymph % (Auto) 12.6 L [place] % (Auto) 7.2 Eos % (Auto) 0.1 Baso % (Auto) 0.1 Lymph # (Auto) 0.9 L [place] # (Auto) 0.5 Eos # (Auto) 0.0 Baso # (Auto) 0.0 Abs Immat Gran (auto) 0.03 Absolute Neuts (auto) 5.9 Absolute Nucleated RBC 0.000 Nucleated RBC % (auto) 0.0 ESR 31 H Anion Gap 15 Estim Creat Clear Calc 94.9 Estimated GFR > 60 Random Glucose 113 Lactic Acid Calcium 9.3 Total Bilirubin 0.5 AST 29 ALT 11 Alkaline Phosphatase 60 Total Creatine Kinase 185 H C-Reactive Protein 7.53 H Total Protein 7.4 Albumin 4.2 Beta HCG, Quant < 2 Urine Color Urine Appearance Urine pH Ur Specific Fine Urine Protein Urine Glucose (UA) Urine Ketones Urine Blood Urine Nitrite Ur Leukocyte Esterase Urine RBC Urine WBC Ur Squamous Epith Cells Urine Bacteria Hyaline Casts Urine Test Salicylates < 5.0 L Urine Opiates Screen Ur Buprenorphine Scrn Ur Oxycodone Screen Urine Methadone Screen Urine Fentanyl Screen Acetaminophen 10 Ur Barbiturates Screen Ur Phencyclidine Scrn Ur Amphetamines Screen U Benzodiazepines Scrn Urine Cocaine Screen U Marijuana (THC) Screen Ethyl Alcohol < 10 Chlam trachomat DNA PCR Influenza Type A (PCR) NEGATIVE Influenza Type B (PCR) NEGATIVE N.gonorrhoeae DNA (PCR) RSV RNA Qual (PCR) NEGATIVE SARS-CoV-2 RNA (RT-PCR) NEGATIVE 01/21/24 01/21/24 15:48 Unknown MCV MCH MCHC RDW Plt Count MPV Immature Gran % (Auto) Neut % (Auto) Lymph % (Auto) [place] % (Auto) Eos % (Auto) Baso % (Auto) Lymph # (Auto) [place] # (Auto) Eos # (Auto) Baso # (Auto) Abs Immat Gran (auto) Absolute Neuts (auto) Absolute Nucleated RBC Nucleated RBC % (auto) ESR Anion Gap Estim Creat Clear Calc Estimated GFR Random Glucose Lactic Acid 0.9 Calcium Total Bilirubin AST ALT Alkaline Phosphatase Total Creatine Kinase C-Reactive Protein Total Protein Albumin Beta HCG, Quant Urine Color [place] A Urine Appearance Clear Urine pH 6.0 Ur Specific Fine 1.010 Urine Protein 30 (1+) H Urine Glucose (UA) Negative Urine Ketones Trace Urine Blood Large (3+) H Urine Nitrite Negative Ur Leukocyte Esterase Trace H Urine RBC >20 H Urine WBC 0-5 Ur Squamous Epith Cells 0-2 Urine Bacteria None Seen Hyaline Casts 0-2 Urine Test NEGATIVE Salicylates Urine Opiates Screen Not Detected Ur Buprenorphine Scrn Positive H Ur Oxycodone Screen Not Detected Urine Methadone Screen Not Detected Urine Fentanyl Screen POSITIVE H Acetaminophen Ur Barbiturates Screen Not Detected Ur Phencyclidine Scrn Not Detected Ur Amphetamines Screen Not Detected U Benzodiazepines Scrn Not Detected Urine Cocaine Screen POSITIVE H U Marijuana (THC) Screen Not Detected Ethyl Alcohol Chlam trachomat DNA PCR NOT DETECTED Influenza Type A (PCR) Influenza Type B (PCR) N.gonorrhoeae DNA (PCR) NOT DETECTED RSV RNA Qual (PCR) SARS-CoV-2 RNA (RT-PCR) Microbiology Microbiology Results: Microbiology 01/21/24 14:33 Blood Culture - Preliminary Blood - Venous Prelim: GPC Gram Stain only Assessment and Plan (1) Sepsis: Status: Acute (2) Drug abuse, IV: Status: Acute (3) MRSA (methicillin resistant staph aureus) culture positive: Status: Acute (4) Positive blood culture: Status: Acute Plan Pt is a 38-year-old female with a PMH significant for?polysubstance use disorder, IVDU, hx polymorphic V-tach, MRSA bacteremia, anxiety, depression, and bipolar disorder who presents to the ED with?all-over body pain. Pt will be admitted to the hospital for treatment and further evaluation of sepsis likely secondary to bacteremia. Sepsis secondary to bacteremia from IVDU 1 set blood culture growing GPC repeat cultures Continue with ceftriaxone and vancomycin while awaiting blood cultures, started 01/21/2024 Negative STD screen ID consult follow Vancomycin trough Suicidal ideation Patient denies any plan or ideas to commit suicide DC Sitter for now care team consulted IVDU Addiction medicine consult HTN Continue propranolol Peripheral neuropathy Continue gabapentin Mood disorder Continue clonazepam, olanzapine Full Code DVT Prophylaxis: Lovenox Pt will require a hospitalization of overnight for treatment of?sepsis likely secondary to bacteremia from IVDU with IV antibiotics. Quality Stroke Does the patient have a stroke diagnosis?: No VTE Prior VTE?: No VTE Risk Level:: Medical - moderate - high VTE Device Contraindication: Treatment Not Indicated VTE Drug Contraindication: N/A - Med Ordered
--- NOTE | 2024-01-22 10:56 | MHC.RECOVRN ---
Attempted to meet with pt in 459 after consult placed to Addiction Medicine for PRAB[facility]. Pt had presented to the ED reporting pain all over and SI. Upon evaluation, pt admitted for sepsis. Pt laying in bed, eyes closed, wakes to voice, requesting t/w return at a later time due to pt feeling nauseous. Per documentation, pt currently prescribed Suboxone, 24 mg daily. In the ED, pt only accepted one 12 mg film and today on [facility] pt only accepted one 8 mg film. Pt appears comfortable in bed. Will continue to follow.
[2024-01-22] MEDS: cefTRIAXone sodium 1 GM VIAL IVPUSH (12:00)
--- NOTE | 2024-01-22 14:25 | MHC.RECOVRN ---
Attempted to meet with pt, pt moans I just want to be left alone. Declines to engage in conversation.
[2024-01-22 14:47] LABS: Vancomycin Trough 6.2 mcg/mL (10.0-20.0)
[2024-01-22 14:49] LABS: Creatinine Clr Calc Pharmacy 96.4; Estimated Glomerular Filt Rate > 60
[2024-01-22 15:09] VITALS: BP 137/80; PULSE 67; RESP 16; TEMP 37.3; O2SAT 96
--- NOTE | 2024-01-22 15:13 | HE.PHANOTE ---
VANCO DOSE ADJUSTMENT BASED ON SCR AND TROUGH OF 6.2 DOSE INCREASED T 1000 Q 8. NEXTLEVEL 01/22 @ 1400
[2024-01-22] MEDS: Enoxaparin Sodium 40 MG/0.4 ML SYRINGE SUBCUT (16:28)
[2024-01-22] MEDS: vancomycin HCL 1,000 MG in 0.9 % Sodium Chloride 250 ML 270 MG IV (16:30)
[2024-01-22] MEDS: Acetaminophen 325 MG TABLET 650 MG PO (20:04)
[2024-01-22 20:05] VITALS: BP 132/74; PULSE 65
[2024-01-22] MEDS: Melatonin 3 MG TABLET 6 MG PO (20:05)
--- NOTE | 2024-01-22 22:36 | W.PM.IDCN ---
History of Present Illness Data of Consult Service Date: 01/22/24 Requesting physician: Konstantin Cordon Primary Care Provider: None Physician HPI Reason for consult: sepsis She presen She has some LLE erythemawith fever and chills. She says she was diagnosed with GC and trichomonas and wasnt treated yet. She has blood culture gram positive cocci. She was treated in October MRSA bacteremia. Review of Systems Review of Systems: Yes all other systems are reviewed and are negative PMFSH Past Medical History Medical History MDD (major depressive disorder), recurrent, severe, with psychosis Opioid use disorder, moderate, dependence Polysubstance abuse Cocaine use disorder History of drug dependence/abuse Atypical bipolar disorder Opiate withdrawal Acute anxiety Drug-induced psychotic disorder Depression PTSD (post-traumatic stress disorder) Anxiety Depression Family History Family history: reviewed and not pertinent Social History Social History Household Members: Significant Other Household Members Other:: grandmother,uncle Housing: Homeless Housing Other:: Homeless Do you presently have visiting nurse or other home services: No Unable to assess alcohol history related to: Refusing to respond 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: never 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 Patient Tobacco Use Status: Current everyday Tobacco user Tobacco use type: Cigarette Cigarette Packs Per Day: 1.5 Cigarettes Per Day: 30.0 Years Smoked: 26 Smoked in Last 30 Days: Yes e-Cigarette/Vaping Use: Never Used Patient Interested in Nicotine Replacement: Yes Patient Given Instructions on How to Stop Smoking: Yes Date Education Initiated: 01/21/24 Second Hand Smoke Exposure: Yes Use of substances other than those prescribed or required for medical reasons: Refusing to respond Substance Use Type: Crack/Cocaine Last Used Substance: Just Prior to Admission Currently Displaying Signs/Symptoms of Drug Intoxication Withdrawal: No Advance Directives: No Advance Directives Information Provided: Yes Advance Directives on File: No Do you have a plan to hurt others: No Plan Recently lost weight without trying: Unsure Nutrition Risks: No Nutritional Risk Patient : No : No Poor oral hygiene: Yes service: No Current occupational status: unemployed Sexual orientation: Don't Know Meds Allergies Allergy/AdvReac Type Severity Reaction Status Date / Time methadone Allergy Severe Anaphylaxis Verified 01/21/24 12:37 Active Medications: Current Medications Acetaminophen (Acetaminophen 325 Mg Tablet) 650 mg PO Q6H PRN PRN Reason: Pain, Mild (Pain Scale 1-3), fever or headache Last Admin: 01/22/24 20:04 Dose: 650 mg Baclofen (Baclofen 10 Mg Tablet) 10 mg PO BID [facility] Last Admin: 01/22/24 20:05 Dose: 10 mg Benzonatate (Benzonatate 100 Mg Capsule) 100 mg PO TID PRN PRN Reason: Cough Buprenorphine/Naloxone (Buprenorphine/Naloxone 8/2 Mg Film) 3 film SUBLINGUAL DAILY [facility] Last Admin: 01/22/24 08:33 Dose: 1 film Calcium Carbonate (Calcium Carbonate 750 Mg Tab.Chew) 750 mg PO Q4H PRN PRN Reason: Heartburn Ceftriaxone Sodium (Ceftriaxone Sodium 500 Mg Vial) 500 mg IM ONCE ONE Stop: 01/22/24 22:36 Clonazepam (Clonazepam 0.5 Mg Tablet) 0.5 mg PO BID [facility] Last Admin: 01/22/24 20:05 Dose: 0.5 mg Enoxaparin Sodium (Enoxaparin Sodium 40 Mg/0.4 Ml Syringe) 40 mg SUBCUT Q24H [facility] Last Admin: 01/22/24 16:28 Dose: 40 mg Gabapentin (Gabapentin 400 Mg Capsule) 800 mg PO TID [facility] Last Admin: 01/22/24 20:05 Dose: 800 mg Vancomycin HCl 1,000 mg/ (Sodium Chloride) 270 mls @ 270 mls/hr IV Q8H [facility] Last Infusion: 01/22/24 17:45 Dose: Infused Magnesium Hydroxide (Milk Of Magnesia 30 Ml Oral.Susp) 30 ml PO DAILY PRN PRN Reason: Constipation Melatonin (Melatonin 3 Mg Tablet) 6 mg PO BEDTIME PRN PRN Reason: Insomnia Last Admin: 01/22/24 20:05 Dose: 6 mg Metronidazole (Metronidazole 500 Mg Tablet) 500 mg PO Q12H [facility] Olanzapine (Olanzapine 5 Mg Tablet) 5 mg PO BID [facility] Last Admin: 01/22/24 20:05 Dose: 5 mg Ondansetron HCl (Ondansetron Hcl 4 Mg/2 Ml Vial) 4 mg IVPUSH Q8H PRN PRN Reason: Nausea and Vomiting Last Admin: 01/22/24 20:10 Dose: 4 mg Pharmacy Consult (Consult Rx Vancomycin Dosing) 1 each MISCELLANE DAILY PRN PRN Reason: Consult order Propranolol HCl (Propranolol Hcl 10 Mg Tablet) 10 mg PO BID [facility]; Protocol Last Admin: 01/22/24 20:05 Dose: 10 mg Sodium Chloride (0.9 % Sodium Chloride Flush 3 Ml Syringe) 3 ml IVFLUSH QSHIFT [facility] Last Admin: 01/22/24 20:06 Dose: 3 ml Home Medications ?Medication ?Instructions ?Recorded ?Confirmed ?Last Taken ?Type melatonin 1 mg tablet 6 mg PO BEDTIME PRN Sleep 11/17/23 01/21/24 11/28/23 History buprenorphine 8 mg-naloxone 2 mg 3 film sublingual DAILY 01/21/24 01/21/24 Unknown History sublingual film (Suboxone) Physical Exam Vital Signs: Vital Signs: Last Vital Signs Temp 99.1 F 01/22/24 15:09 Pulse 65 01/22/24 20:05 Resp 16 01/22/24 15:09 BP 132/74 01/22/24 20:05 Pulse Ox 96 01/22/24 15:09 O2 Del Method Room Air 01/22/24 15:09 O2 Flow Rate 3 01/22/24 03:21 BMI result Body Mass Index 23.2 Const: General: cooperative HEENT: Head: Yes normal to inspection Face and sinus: Yes normal facial exam Mouth: Normal oral and palatal mucosa present Teeth and gingiva: dentition normal Eyes: General: appearance normal, both eyes and all related structures Pupils: Equal, round and reactive pupils present Resp: Effort & Inspection: normal respiratory effort Cardio: Rate: regular rate Rhythm: regular rhythm GI: Palpation (GI): Soft to palpation and nontender : General: Yes no CVA tenderness Back/Spine/Pelvis: Back: no CVA tenderness Skin: General skin exam: no rashes or lesions noted Neuro: General: moves all extremities Cranial nerves: Yes Equal, round and reactive pupils present Extrem: Other: mild erythema LLE Psych: Appearance: grossly normal Results Labs 01/21/24 14:09 01/22/24 14:03 Labs: BMP 01/22/24 14:03 Creatinine 0.69 Microbiology Microbiology Results: Microbiology 01/21/24 14:09 Blood - Venous Blood Culture - Preliminary No growth after 24 hours. 01/21/24 14:33 Blood - Venous Blood Culture - Preliminary Prelim: GPC Gram Stain only Assessment and Plan (1) Sepsis: Status: Acute (2) Drug abuse, IV: Status: Acute (3) Cellulitis: Qualifiers: Laterality: left Site of cellulitis: extremity Site of cellulitis of extremity: lower extremity Qualified Code(s): L03.116 - Cellulitis of left lower limb Status: Acute (4) Exposure to STD: Status: Acute Plan Await blood cultures. Check TTE if not done. If MRSA blood then four weeks IV Vancomycin,probable skin source GC treat with 500 mg IM Ceftriaxone and stop IV CTX. Po Flagyl for a week rx trichomonas Check HIV test. Help with addiction
[2024-01-22] MEDS: metroNIDAZOLE 500 MG TABLET PO (22:51)
[2024-01-23] VITALS: BP 93/51
[2024-01-23] MEDS: vancomycin HCL 1,000 MG in 0.9 % Sodium Chloride 250 ML 270 MG IV ×3 (00:21→15:40)
[2024-01-23] MEDS: Acetaminophen 325 MG TABLET 650 MG PO ×2 (02:37→15:39)
--- NOTE | 2024-01-23 02:43 | PC.NURSE ---
Addendum entered by Shamir Ramírez RN 01/23/24 05:27: patient refusing labs from automotive product engineer this morning Original Note: Telemetry stickers off last night, multiple attempts made by staff to apply telemetry but patient currently refusing. Oxygen sats were 91%, patient refusing to apply oxygen overnight. Blood pressure soft but stable. .
--- NOTE | 2024-01-23 09:22 | MHC.RECOVRN ---
Met with patient in for check in. Patient was alert and awake, watching TV. Facial grimace noted when talking, she had a hard time staying still in bed, with extremities moving rapidly. I asked patient about her suboxone and why she hadn't taken the full dose yesterday, she became tearful stating I hate it, I don't like how it makes me feel, I'm still in pain with it, I was on methadone and that made me feel human! . Patient acknowledges back pain is chronic and now the foot pain, why I'm here . We talked about the importance of taking meds as prescribed, and trying it today, she agreed and asked me to let the nurse know she needed her full dose, and agreed to take the prescribed dose of suboxone today.
[2024-01-23 09:45] VITALS: BP 115/84; PULSE 84
[2024-01-23] MEDS: clonazePAM 0.5 MG TABLET PO (09:45)
[2024-01-23] MEDS: Buprenorphine/Naloxone 8/2 mg FILM 3 FILM SUBLINGUAL (09:45)
[2024-01-23] MEDS: Gabapentin 400 MG CAPSULE 800 MG PO ×2 (09:45→15:39)
[2024-01-23] MEDS: Propranolol HCL 10 MG TABLET PO (09:45)
[2024-01-23] MEDS: Baclofen 10 MG TABLET PO (09:45)
[2024-01-23] MEDS: OLANZapine 5 MG TABLET PO (09:45)
[2024-01-23] MEDS: 0.9 % Sodium Chloride Flush 3 ML SYRINGE IVFLUSH (09:50)
[2024-01-23 09:55] VITALS: BP 115/84; PULSE 84; O2SAT 96
--- NOTE | 2024-01-23 11:28 | P.PNIM_ITS ---
Subjective Subjective Date of Service: 01/23/24 Interval History: No more fever overnight 1 set of cultures growing MRSA Denies any suicidal ideation or plan No other events Review of Systems Review of Systems: Yes all other systems are reviewed and are negative Physical Exam 2 Vital Signs: Vital Signs: Last Vital Signs Temp 99.1 F 01/22/24 15:09 Pulse 84 01/23/24 09:55 Resp 16 01/22/24 15:09 BP 115/84 01/23/24 09:55 Pulse Ox 96 01/23/24 09:55 O2 Del Method Room Air 01/23/24 09:55 O2 Flow Rate 3 01/22/24 03:21 BMI result Body Mass Index 23.2 Objective Data Active Medications Acetaminophen (Acetaminophen 325 Mg Tablet) 650 mg PO Q6H PRN PRN Reason: Pain, Mild (Pain Scale 1-3), fever or headache Last Admin: 01/23/24 02:37 Dose: 650 mg Documented By: EMETERIO Baclofen (Baclofen 10 Mg Tablet) 10 mg PO BID [facility] Last Admin: 01/23/24 09:45 Dose: 10 mg Documented By: MARSHALL Benzonatate (Benzonatate 100 Mg Capsule) 100 mg PO TID PRN PRN Reason: Cough Buprenorphine/Naloxone (Buprenorphine/Naloxone 8/2 Mg Film) 3 film SUBLINGUAL DAILY [facility] Last Admin: 01/23/24 09:45 Dose: 3 film Documented By: MARSHALL Calcium Carbonate (Calcium Carbonate 750 Mg Tab.Chew) 750 mg PO Q4H PRN PRN Reason: Heartburn Clonazepam (Clonazepam 0.5 Mg Tablet) 0.5 mg PO BID [facility] Last Admin: 01/23/24 09:45 Dose: 0.5 mg Documented By: MARSHALL Enoxaparin Sodium (Enoxaparin Sodium 40 Mg/0.4 Ml Syringe) 40 mg SUBCUT Q24H [facility] Last Admin: 01/22/24 16:28 Dose: 40 mg Documented By: LIAS Gabapentin (Gabapentin 400 Mg Capsule) 800 mg PO TID [facility] Last Admin: 01/23/24 09:45 Dose: 800 mg Documented By: MARSHALL Vancomycin HCl 1,000 mg/ (Sodium Chloride) 270 mls @ 270 mls/hr IV Q8H [facility] Last Admin: 01/23/24 09:52 Dose: 270 mls/hr Documented By: MARSHALL Magnesium Hydroxide (Milk Of Magnesia 30 Ml Oral.Susp) 30 ml PO DAILY PRN PRN Reason: Constipation Melatonin (Melatonin 3 Mg Tablet) 6 mg PO BEDTIME PRN PRN Reason: Insomnia Last Admin: 01/22/24 20:05 Dose: 6 mg Documented By: EMETERIO Metronidazole (Metronidazole 500 Mg Tablet) 500 mg PO Q12H [facility] Last Admin: 01/22/24 22:51 Dose: 500 mg Documented By: EMETERIO Olanzapine (Olanzapine 5 Mg Tablet) 5 mg PO BID [facility] Last Admin: 01/23/24 09:45 Dose: 5 mg Documented By: MARSHALL Ondansetron HCl (Ondansetron Hcl 4 Mg/2 Ml Vial) 4 mg IVPUSH Q8H PRN PRN Reason: Nausea and Vomiting Last Admin: 01/22/24 20:10 Dose: 4 mg Documented By: EMETERIO Pharmacy Consult (Consult Rx Vancomycin Dosing) 1 each MISCELLANE DAILY PRN PRN Reason: Consult order Propranolol HCl (Propranolol Hcl 10 Mg Tablet) 10 mg PO BID [facility]; Protocol Last Admin: 01/23/24 09:45 Dose: 10 mg Documented By: MARSHALL Sodium Chloride (0.9 % Sodium Chloride Flush 3 Ml Syringe) 3 ml IVFLUSH QSHIFT [facility] Last Admin: 01/23/24 09:50 Dose: 3 ml Documented By: MARSHALL Labs 01/21/24 14:09 01/22/24 14:03 Labs: Laboratory Results - last 24 hr 01/22/24 14:03 Estim Creat Clear Calc 96.4 Estimated GFR > 60 Vancomycin Trough 6.2 L Microbiology Microbiology Results: Microbiology 01/21/24 14:33 Blood Culture - Preliminary Blood - Venous Staphylococcus aureus 01/21/24 14:09 Blood Culture - Preliminary Blood - Venous No growth after 24 hours. Assessment and Plan (1) Sepsis: Status: Acute (2) Drug abuse, IV: Status: Acute (3) MRSA (methicillin resistant staph aureus) culture positive: Status: Acute (4) Positive blood culture: Status: Acute Plan Pt is a 38-year-old female with a PMH significant for?polysubstance use disorder, IVDU, hx polymorphic V-tach, MRSA bacteremia, anxiety, depression, and bipolar disorder who presents to the ED with?all-over body pain. Pt will be admitted to the hospital for treatment and further evaluation of sepsis likely secondary to bacteremia. Sepsis secondary to MRSA bacteremia from IVDU repeat cultures stop ceftriaxone and continue vancomycin Negative STD screen ID consult>check TTE, 4 weeks IV vancomycin follow Vancomycin trough Suicidal ideation Patient denies any plan or ideas to commit suicide DC Sitter for now care team consulted Untreated STD IM ctx x 1, po flagyl for 1 week for trich IVDU Addiction medicine consult HTN Continue propranolol Peripheral neuropathy Continue gabapentin Mood disorder Continue clonazepam, olanzapine Full Code Attending Dr. Fierro DVT Prophylaxis: Lovenox Pt will require a hospitalization of overnight for treatment of?sepsis likely secondary to bacteremia from IVDU with IV antibiotics. Quality Stroke Does the patient have a stroke diagnosis?: No VTE Prior VTE?: No VTE Risk Level:: Medical - moderate - high VTE Device Contraindication: Treatment Not Indicated VTE Drug Contraindication: N/A - Med Ordered
[2024-01-23 11:35] VITALS: BP 94/65; PULSE 78; RESP 18; TEMP 36.5; O2SAT 96
[2024-01-23] MEDS: metroNIDAZOLE 500 MG TABLET PO (11:51)
[2024-01-23 15:26] VITALS: BP 135/85; PULSE 74; RESP 18; TEMP 36.5; O2SAT 95
[2024-01-23 16:06] LABS: Vancomycin Random 14.4 mcg/mL (15-20)
[2024-01-23 16:09] LABS: Hematocrit 32.2 % (37.0-47.0); Hemoglobin 10.5 g/dl (12.0-16.0); Mean Corpuscular HGB Conc 32.6 g/dl (31.0-35.0); Mean Corpuscular Hemoglobin 27.5 pg (27.0-33.0); Mean Corpuscular Volume 84.3 fL (80.0-98.0); Mean Platelet Volume 10.8 fL (9.4-12.3); NRBC Pct Auto 0.2 /100WBC (0.0-0.2); PLT CLUMP 1; Red Blood Count 3.82 X10*6/uL (4.20-5.50); Red Cell Distribution Width 15.8 % (11.0-16.0)
[2024-01-23 16:37] LABS: Anion Gap 16 (12-20); Blood Urea Nitrogen 12 mg/dL (9-16); Calcium 8.9 mg/dL (8.4-10.2); Carbon Dioxide 22 mmol/L (22-29); Chloride 110 mmol/L (96-108); Estimated Glomerular Filt Rate > 60; Glucose Random 108 mg/dL (60-115); Potassium 4.2 mmol/L (3.3-5.1); Sodium 144 mmol/L (135-145)
[2024-01-23 16:39] LABS: Platelet Count 247 X10*3/uL (160-400)
[2024-01-23 16:40] LABS: White Blood Count 13.2 X10*3/uL (4.8-10.8)
--- NOTE | 2024-01-23 16:45 | P.EN_ITS ---
Event Note Date of Service: 01/23/24 Event Note: Patient seen by motorboat mechanic helper this morning reporting that she may want to change suboxone dosing to 12mg BID. During this admission she has been inconsistent dosing; day one took 12mg but declined second 12mg dose day 2 took one 8mg film, declined remainder of dose Day 3 took full 24mg this morning The more consistent patient is with dosing, the more effective medication can be with managing her sx of opiate withdrawal and cravings. No additional recommendations at this time, but investigator operator will check back in on Thursday Time Spent With Patient Time: Total time managing care of this patient today ____ minutes.
--- NOTE | 2024-01-23 17:22 | P.DS_ITS ---
DS: Providers Provider Date of Service: 01/23/24 Date of admission: 01/21/24 16:58 Primary care physician: None Physician Consults: 01/21/24 12:45 Consult to Care Team Stat Comment: Reason for consultation: Suicidal ideation 01/21/24 16:57 Addiction Medicine Routine Consulting Provider: Addiction Covering Reason for consultation: Poluysubstance use disorder 01/22/24 10:24 Consult to Infectious Diseases Routine Consulting Provider: [facility] Reason for consultation: GPC Bacteremia Likely MRSA DS: Diagnosis Discharge Diagnosis (1) Sepsis: Status: Acute (2) Drug abuse, IV: Status: Acute (3) MRSA (methicillin resistant staph aureus) culture positive: Status: Acute (4) Positive blood culture: Status: Acute DS: Summary Hospital Course Hospital Course: Pt is a 38-year-old female with a PMH significant for?polysubstance use disorder, IVDU, hx polymorphic V-tach, MRSA bacteremia, anxiety, depression, and bipolar disorder who presents to the ED with?all-over body pain. Patient is seen and evaluated at bedside where she is somnolent but arousable. When awake patient is screaming, crying, yelling, and demanding medications, crackers, and hot tea. Patient complains of pain ?everywhere? and especially in her feet, though does not answer any other ROS queries. Patient is otherwise unwilling/unable to provide any addition meaningful HPI. Patient is well-known to this facility and has presented many times prior. Has a history of combative/unruly behavior requiring chemical restraints, and history of leaving AMA. Initially upon presenting to the ED indicated she had gonorrhea and Trichomonas from her current boyfriend. Provided reassurances to the ED provider she wished to be admitted to the hospital and would not leave AMA. In the ED pt was febrile up to 103.6, tachycardic up to 111, tachypneic up to 22, and was soft BP as low as 99/54. Labs were significant for ESR of 31, CRP 7.53, and CPK of 185. Lactic acid wnl No leukocytosis. Stable normocytic anemia of 9.9/30.4, at baseline. No electrolyte abnormalities. Renal function baseline. Hepatic function WNL. UA not consistent with acute UTI. Tested negative for flu, COVID, RSV. Gonorrhea and chlamydia pending. CXR showed low lung volumes with streaky left basilar opacity likely atelectasis though infiltrate can not be excluded. EKG demonstrated sinus tachycardia of 122 with T-wave inversions anterior leads but no evidence of ST elevations or depressions. Pt was treated with acetaminophen, clonazepam, Suboxone, gabapentin, metronidazole, IVF, ceftriaxone, and vancomycin. Pt will be admitted to the hospital for treatment and further evaluation of sepsis likely secondary to bacteremia. The patient has decided to leave against medical advice. She has normal mental status and adequate capacity to make medical decisions. The patient refuses hospital admission and wants to be discharged. The risks have been explained to the patient including worsening illness, chronic pain, permanent disability and even . The benefits of admission have also been explained including the availability of nurses, medical providers, close monitoring, IV medications, diagnostic imaging, treatments, etc.. The patient was able to understand and state the risks and benefits of hospital admission. The patient was given opportunities to ask questions prior to leaving. Treated for MRSA bacteremia was on IV vancomycin which would be the antibiotic of choice however due to the fact that patient is leaving against medical advice doxycycline was sent to the pharmacy for her to take for 4 weeks. Patient should return to the emergency department for worsening symptoms. Time Attestation Discharge Coordination Time (in mins): 30 Quality: Safe Use of Opioids Does Pt have an Active Cancer Diagnosis on the Problem List?: No Quality: Stroke Does the patient have a stroke diagnosis?: No Physical Exam Vital Signs: Vital Signs: Last Vital Signs Temp 97.7 F 01/23/24 15:26 Pulse 74 01/23/24 15:26 Resp 18 01/23/24 15:26 BP 135/85 01/23/24 15:26 Pulse Ox 95 01/23/24 15:26 O2 Del Method Room Air 01/23/24 15:26 O2 Flow Rate 3 01/22/24 03:21 BMI result Body Mass Index 23.2 Declined DS: Data Data Completed and Pending Completed studies during hospitalization [Text1]: Procedures Detoxification Services for Substance Abuse Treatment (10/05/20) Labs on day of discharge: Laboratory Results - last 24 hr 01/23/24 15:33 WBC 13.2 H RBC 3.82 L Hgb 10.5 L Hct 32.2 L MCV 84.3 MCH 27.5 MCHC 32.6 RDW 15.8 Plt Count 247 MPV 10.8 Absolute Nucleated RBC 0.020 H Nucleated RBC % (auto) 0.2 Sodium 144 Potassium 4.2 Chloride 110 H Carbon Dioxide 22 Anion Gap 16 BUN 12 Creatinine 0.73 Estim Creat Clear Calc 91.0 Estimated GFR > 60 Random Glucose 108 Calcium 8.9 Random Vancomycin 14.4 L Preliminary micro results at discharge 01/21/24 14:09 Blood Culture - Preliminary Blood - Venous No growth after 48 hours. 01/21/24 14:33 Blood Culture - Preliminary Blood - Venous Staphylococcus aureus Discharge Plan Discharge Anticipated Discharge Date/Time: 01/23/24 17:20 Patient Disposition: Left Against Medical Advice Discharge Diagnosis: MRSA bacteremia Discharge Medications: New doxycycline hyclate 100 mg tablet 100 mg PO BID Qty: 60 0RF Continued clonazepam 0.5 mg tablet 0.5 mg PO BID Qty: 14 0RF olanzapine [Zyprexa] 5 mg tablet 5 mg PO BID Qty: 14 0RF gabapentin 800 mg tablet 800 mg PO TID Qty: 21 0RF propranolol 10 mg tablet 10 mg PO BID Qty: 14 0RF baclofen 10 mg tablet 10 mg PO BID Qty: 14 0RF melatonin 1 mg Tablet 6 mg PO BEDTIME PRN (Reason: Sleep) buprenorphine-naloxone [Suboxone] 8-2 mg film 3 film sublingual DAILY Discharge Orders: Discharge Order (Routine); Ordered 01/23/24 Ordered By: Gwen Fine Diet: Advance to usual diet Activity on Discharge: As tolerated Print Language: Tamazight Care Plan Goals: The patient has decided to leave against medical advice. She has normal mental status and adequate capacity to make medical decisions. The patient refuses hospital admission and wants to be discharged. The risks have been explained to the patient including worsening illness, chronic pain, permanent disability and even . The benefits of admission have also been explained including the availability of nurses, medical providers, close monitoring, IV medications, diagnostic imaging, treatments, etc.. The patient was able to understand and state the risks and benefits of hospital admission. The patient was given opportunities to ask questions prior to leaving. Health Concerns: MRSA bacteremia Plan of Treatment: Take doxycycline for 4 weeks with the understanding that IV vancomycin is the medication of choice but you have decided to leave against medical advice Assessment: See discharge summary
--- NOTE | 2024-01-23 17:54 | PC.NURSE ---
Pt left AMA , Gwen Fine came to beside and educated the patient on the importance of staying hospitalized. Patient stated they understood the risk of leaving AMA. AMA form completed with second RN .
== END 2024-01-23 17:45 | disposition left against medical advice (07) | DRG 720 ==
LOC: HO.ED 15:27 → HO.EDOVER 17:10 → HO.IMC 19:43
PROVIDERS: Physician Assistant; Student in an Organized Health Care Education/Training Program; Admitting Provider Student in an Organized Health Care Education/Training Program; Emergency Provider Emergency Medicine; Visit Provider Nurse Practitioner Acute Care
DX: A41.02 Sepsis due to Methicillin resistant Staphylococcus aureus (principal); L03.116 Cellulitis of left lower limb; F11.20 Opioid dependence, uncomplicated; F17.210 Nicotine dependence, cigarettes, uncomplicated; A59.9 Trichomoniasis, unspecified; F39 Unspecified mood [affective] disorder; G62.9 Polyneuropathy, unspecified; I10 Essential (primary) hypertension; Z20.2 Contact with and (suspected) exposure to infections with a predominantly sexual mode of transmission; Z71.6 Tobacco abuse counseling; Z79.899 Other long term (current) drug therapy
CPT/HCPCS: 0241U; 36415; 71045; 80048; 80053; 80143; 80179; 80202; 80307; 81001; 81003; 81025; 82550; 82565; 83605; 84702; 85025; 85027; 85652; 86140; 87040; 87077; 87186; 87205; 87491; 87591; 93005; 99285; J0696; J1650; J2405; J3370; J3371

== ENCOUNTER → 2024-01-21 16:18 | Outpatient (BNV) | payer MEDICAID, SELFPAY | PROVIDERS: Admitting Provider Student in an Organized Health Care Education/Training Program; Emergency Provider Emergency Medicine; Visit Provider Internal Medicine Cardiovascular Disease | DX: R00.0 Tachycardia, unspecified (principal) | CPT/HCPCS: 93010 ==

== ENCOUNTER → 2024-01-21 16:58 | Outpatient (BNV) | payer MEDICAID, SELFPAY | PROVIDERS: Admitting Provider Student in an Organized Health Care Education/Training Program; Emergency Provider Emergency Medicine; Visit Provider Student in an Organized Health Care Education/Training Program | DX: A41.9 Sepsis, unspecified organism (principal); F19.10 Other psychoactive substance abuse, uncomplicated; R00.0 Tachycardia, unspecified | CPT/HCPCS: 99223; 99233; 99238; 99499 ==

== ENCOUNTER → 2024-01-21 16:58 | Outpatient (BNV) | payer MEDICAID, SELFPAY | PROVIDERS: Admitting Provider Student in an Organized Health Care Education/Training Program; Emergency Provider Emergency Medicine; Visit Provider Internal Medicine | DX: A41.9 Sepsis, unspecified organism (principal); F19.10 Other psychoactive substance abuse, uncomplicated; L03.116 Cellulitis of left lower limb; Z20.2 Contact with and (suspected) exposure to infections with a predominantly sexual mode of transmission | CPT/HCPCS: 99222 ==

== ENCOUNTER 2024-01-25 13:51 | Inpatient (IN) | payer MEDICAID, SELFPAY ==
[2024-01-25 13:57] VITALS: BP 120/73; PULSE 84; O2SAT 97
[2024-01-25 14:10] VITALS: BP 122/77; PULSE 79; RESP 16; TEMP 38; O2SAT 96; BMI 29.7
[2024-01-25 14:29] VITALS: PULSE 77; TEMP 37.8
--- NOTE | 2024-01-25 14:33 | PC.NURSE ---
Patient TIMMY from [place], apparent OD bystander gave Narcan unknown amount left before EMS arrival, 3 bundles of heroin w/ her. Patient noted to be febrile during triage, rectal temp taken 100.0. Hospital change management administrator completed, various drug paraphernalia found including 1 needle and crack pipe in bra. patient resting quietly on stretcher at this time, communication engineer applied, sating 93% on RA. Belongings in [place].
--- NOTE | 2024-01-25 15:36 | ED.OVERDOSE ---
HPI - Overdose General Chief Complaint: Overdose Stated Complaint: USED 3 BAGS OF HEROIN,MAINTAINING AIRWAY PER EMS Time Seen by Provider: 01/25/24 15:36 Source: patient and EMS Mode of arrival: EMS Limitations: no limitations History of Present Illness ED Provider: Cassidy García PA-C HPI Narrative: 38 yo female with history of polysubstance abuse, bipolar disorder, prolonged QTC, history of polymorphic V-tach, anxiety, depression, recent admission here for MRSA bacteremia, left AMA 2 days ago who presents to the ER via EMS after she was found down by bystanders, minimally responsive. She was given an unknown amount of Narcan with improvement in her mental status. She was just seen here on 01/20, admitted for cellulitis, found to have MRSA and a 2nd Staph species in her blood. She reports ongoing areas of cellulitis with pus draining from several wounds. She reports left lower extremity pain, bilateral feet pain, diffuse body aches and pains. She reports fever and chills. She continues to inject primarily in her hands. She states she left the hospital 2 days ago to get high. She denies any intent of harm today, she admits of using 3 bags. She states it was ?supposed to be heroin. ? complaint: accidental overdose Onset (ago): unknown Context: Accidental Overdose: wanted to get high Treatments Prior to Arrival: narcan Related Data Home Medications ?Medication ?Instructions ?Recorded ?Confirmed melatonin 1 mg tablet 6 mg PO BEDTIME PRN Sleep 11/17/23 01/21/24 buprenorphine 8 mg-naloxone 2 mg 3 film sublingual DAILY 01/21/24 01/21/24 sublingual film (Suboxone) Previous Rx's ?Medication ?Instructions ?Recorded clonazepam 0.5 mg tablet 0.5 mg PO BID #14 tabs 11/29/23 olanzapine 5 mg tablet (Zyprexa) 5 mg PO BID #14 tabs 11/29/23 baclofen 10 mg tablet 10 mg PO BID #14 tabs 01/14/24 gabapentin 800 mg tablet 800 mg PO TID #21 tabs 01/14/24 propranolol 10 mg tablet 10 mg PO BID #14 tabs 01/14/24 Allergies Allergy/AdvReac Type Severity Reaction Status Date / Time methadone Allergy Severe Anaphylaxis Verified 01/25/24 14:11 Review of Systems Review of Systems: Yes all other systems are reviewed and are negative PMFSH Past Medical History Medical History MDD (major depressive disorder), recurrent, severe, with psychosis Opioid use disorder, moderate, dependence Polysubstance abuse Cocaine use disorder History of drug dependence/abuse Atypical bipolar disorder Opiate withdrawal Acute anxiety Drug-induced psychotic disorder Depression PTSD (post-traumatic stress disorder) Anxiety Depression Social History Social History Household Members: Significant Other Household Members Other:: grandmother,uncle Housing: Homeless Housing Other:: Homeless Do you presently have visiting nurse or other home services: No Unable to assess alcohol history related to: Refusing to respond 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: never 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 Patient Tobacco Use Status: Current everyday Tobacco user Tobacco use type: Cigarette Cigarette Packs Per Day: 1.5 Cigarettes Per Day: 30.0 Years Smoked: 26 Smoked in Last 30 Days: Yes e-Cigarette/Vaping Use: Never Used Second Hand Smoke Exposure: Yes Use of substances other than those prescribed or required for medical reasons: Yes Substance Use Type: Crack/Cocaine and Heroin Substance Use Frequency: Chronic Longstanding Last Used Substance: Just Prior to Admission Advance Directives: Yes Advance Directives on File: Yes Advance Directives Date on File: 08/15/23 Do you have a plan to hurt others: No Plan service: No Current occupational status: unemployed Sexual orientation: Don't Know Physical Exam Vital Signs: Vital Signs: Last Vital Signs Temp 100.0 F 01/25/24 14:29 Pulse 77 01/25/24 14:29 Resp 16 01/25/24 14:10 BP 122/77 01/25/24 14:10 Pulse Ox 96 01/25/24 14:10 O2 Del Method Room Air 01/25/24 14:10 BMI result Body Mass Index 29.7 Appearance: Alert, disheveled, route to staff Head: normocephalic, atraumatic. Eyes: Pupils equal, round and reactive to light. ENT: Pharynx normal. No tonsillar swelling or exudate. Neck: Normal inspection. Neck supple. CVS: Normal heart rate and rhythm. Pulses normal. Respiratory: No respiratory distress. Breath sounds normal. Abdomen: Soft and nontender. +BS x4 Skin: Skin warm and dry. Normal skin color. Normal skin turgor. No rashes. Extremities: left lower extremity edema, nonpitting with various scabbing and scars, minor open wounds scattered on all 4 extremities, no obvious abscesses. No joint swelling. Neuro/psych: Oriented X 3. No motor deficit. No sensory deficit. CN II-XII intact. Normal speech and cognition. Medications Administered Discontinued Medications Generic Name Dose Route Start Last Admin Trade Name Radha PRN Reason Stop Dose Admin Hydromorphone HCl 1 mg 01/25/24 17:02 01/25/24 17:16 Hydromorphone Hcl 1 Mg/Ml Syringe IVPUSH 01/25/24 17:03 1 mg ONCE ONE Administration Protocol Procedures EJ/Peripheral Line Arm R: Time Out Performed: Yes Skin Cleansed in Sterile Fashion: Yes Size (gauge): 20 IV Secured and Dressing Applied: Yes Patient Tolerated Procedure: well and no complications Medical Decision Making Medical Decision Making [facility] Narrative: 38-year-old female with history of polysubstance abuse, recent admission here for polymicrobial bacteremia including MRSA and a 2nd staph species who presents back to the ER after an unintentional heroin overdose today. She was given Narcan with improvement in her mental status. She arrives to the ER with a low-grade fever 100.4. She left here against medical advice 2 days ago. She knows she has a blood infection. She understands that can be life-threatening or cause severe debility if she does not stay in the hospital for treatment. She states she is willing to stay and wants to get help. She reports severe pain all over her body, primarily her left lower extremity. She is asking for pain medication. IV established. not septic. will admit for IV abx, needs echo and clearance of her bacteremia. patient agrees to admission Differential Diagnosis Differential Diagnoses: The differential diagnosis associated with the presentation includes Polymicrobial bacteremia, endocarditis, cellulitis, epidural abscess Consult Healthcare Provider Management of the patient was discussed with: Hospitalist Lab Data [facility] Lab Attestation statement: I reviewed the patient's lab results. 01/25/24 17:08 01/25/24 17:08 Labs: Lab Results 01/25/24 01/25/24 Range/Units 17:08 17:09 WBC 11.7 H (4.8-10.8) X10*3/uL RBC 3.29 L (4.20-5.50) X10*6/uL Hgb 8.9 L (12.0-16.0) g/dl Hct 27.7 L (37.0-47.0) % MCV 84.2 (80.0-98.0) fL MCH 27.1 (27.0-33.0) pg MCHC 32.1 (31.0-35.0) g/dl RDW 15.9 (11.0-16.0) % Plt Count 275 (160-400) X10*3/uL MPV 10.1 (9.4-12.3) fL Immature Gran % (Auto) 0.5 H (0.0-0.4) % Neut % (Auto) 82.5 H (45-73) % Lymph % (Auto) 11.5 L (20-40) % Foster % (Auto) 3.8 (2-11) % Eos % (Auto) 1.4 (0-4) % Baso % (Auto) 0.3 (0-2) % Lymph # (Auto) 1.4 (1.2-4.9) X10*3/uL Foster # (Auto) 0.5 (0.1-1.2) X10*3/uL Eos # (Auto) 0.2 (0.0-0.4) X10*3/uL Baso # (Auto) 0.0 (0.0-0.2) X10*3/uL Abs Immat Gran (auto) 0.06 H (0.00-0.03) X10*3/uL Absolute Neuts (auto) 9.7 H (2.0-8.3) x10*3/uL Absolute Nucleated RBC 0.000 (0.0-0.012) X10*3/uL Nucleated RBC % (auto) 0.0 (0.0-0.2) /100WBC Smear Tech's Comments VERIFIED Hold Purple Top SEE NOTE Sodium 133 L (135-145) mmol/L Potassium 3.5 (3.3-5.1) mmol/L Chloride 101 (96-108) mmol/L Carbon Dioxide 21 L (22-29) mmol/L Anion Gap 15 (12-20) BUN 12 (9-16) mg/dL Creatinine 0.72 (0.5-1.4) mg/dL Estim Creat Clear Calc 92.7 Estimated GFR > 60 Random Glucose 179 H (60-115) mg/dL Lactic Acid 1.0 (0.5-2.0) mmol/L Calcium 8.8 (8.4-10.2) mg/dL Magnesium 2.0 (1.6-2.6) mg/dL Total Bilirubin 0.3 (0.0-1.0) mg/dL Direct Bilirubin 0.1 (0.0-0.5) mg/dL AST 23 (5-31) U/L ALT 13 (0-31) U/L Alkaline Phosphatase 62 (39-117) U/L Total Protein 6.5 (6.5-8.0) g/dL Albumin 3.3 L (3.5-5.0) g/dL Independent Historian Clinical information obtained from an independent historian. History obtained from or confirmed by: EMS External Record Review External record reviewed: Inpatient record, Outpatient record, Prior outpatient labs and Prior outpatient radiology Prescription Management I considered prescription management with: Pain Medication and Antibiotic Chronic Conditions Patient?s care impacted by: Other (IVDA) Social Determinants Patient?s care significantly limited by Social Determinants of Health including: Inadequate housing, Alcoholism and drug addiction in family, Problems related to primary support group and Other Social Determinant of Health Critical Care Time Critical Care Time Critical Care Time: Yes Total Critical Care Time: 36 Attestation: I have personally provided critical care time exclusive of time spent on separately billable procedures. Time includes review of lab data, radiology results, discussion with consultants, and monitoring for potential decompensation. Intervention performed as documented. Discharge Plan Discharge Clinical Impression: Polymicrobial bacterial infection Patient Disposition: Admitted As Inpatient Print Language: Kosovan
--- NOTE | 2024-01-25 16:39 | PC.NURSE ---
EDT Eveline attempted to draw labs, patient began screaming about wanting food, refusing to be stuck for labs until fed. Food given. Patient stated you only have one shot and that's it . Provider Sangeeta made aware.
[2024-01-25] MEDS: HYDROmorphone HCl 1 MG/ML SYRINGE IVPUSH ×2 (17:16→20:49)
[2024-01-25 17:18] LABS: Basophils Percent Auto 0.3 % (0-2); Eosinophils Absolute Auto 0.2 X10*3/uL (0.0-0.4); Eosinophils Percent Auto 1.4 % (0-4); Hematocrit 27.7 % (37.0-47.0); Hemoglobin 8.9 g/dl (12.0-16.0); Imm Gran Abs Auto 0.06 X10*3/uL (0.00-0.03); Imm Gran Pct Auto 0.5 % (0.0-0.4); Lymphocytes Absolute Auto 1.4 X10*3/uL (1.2-4.9); Lymphocytes Percent Auto 11.5 % (20-40); MANUAL DIFF FLAG SCAN; Mean Corpuscular HGB Conc 32.1 g/dl (31.0-35.0); Mean Corpuscular Hemoglobin 27.1 pg (27.0-33.0); Mean Corpuscular Volume 84.2 fL (80.0-98.0); Mean Platelet Volume 10.1 fL (9.4-12.3); Monocytes Absolute Auto 0.5 X10*3/uL (0.1-1.2); Monocytes Percent Auto 3.8 % (2-11); Neutrophils Absolute Auto 9.7 x10*3/uL (2.0-8.3); Neutrophils Percent Auto 82.5 % (45-73); PLT CLUMP 1; Red Blood Count 3.29 X10*6/uL (4.20-5.50); Red Cell Distribution Width 15.9 % (11.0-16.0); SCAN SMEAR FLAG 1
[2024-01-25 17:31] LABS: Alanine Aminotransferase 13 U/L (0-31); Albumin Level 3.3 g/dL (3.5-5.0); Alkaline Phosphatase 62 U/L (39-117); Anion Gap 15 (12-20); Aspartate Amino Transferase 23 U/L (5-31); Bilirubin Direct 0.1 mg/dL (0.0-0.5); Bilirubin Total 0.3 mg/dL (0.0-1.0); Blood Urea Nitrogen 12 mg/dL (9-16); Calcium 8.8 mg/dL (8.4-10.2); Carbon Dioxide 21 mmol/L (22-29); Chloride 101 mmol/L (96-108); Creatinine Clr Calc Pharmacy 92.7; Estimated Glomerular Filt Rate > 60; Glucose Random 179 mg/dL (60-115); Potassium 3.5 mmol/L (3.3-5.1); Sodium 133 mmol/L (135-145); Total Protein 6.5 g/dL (6.5-8.0)
[2024-01-25 17:42] LABS: Platelet Count 275 X10*3/uL (160-400); SLIDE REVIEW VERIFIED; White Blood Count 11.7 X10*3/uL (4.8-10.8)
[2024-01-25 18:00] LABS: Influenza A PCR NEGATIVE (Negative); Influenza B PCR NEGATIVE (Negative); Resp Syncy Virus RNA Qual PCR NEGATIVE (Negative); SARS COV2 PCR INHOUSE NEGATIVE (Negative)
--- NOTE | 2024-01-25 18:16 | P.HPHOSP_ITS ---
History of Present Illness Date of Service: 01/25/24 Attending physician on admission: Garcia Fierro Chief Complaint: I am not talking now This is a 38-year-old female with a past medical history significant for major depressive disorder, recurrent with psychosis, history of intravenous drug abuse, opioid use disorder with withdrawal, seizure , recent admission at this facility for MRSA bacteremia however left AMA to get high who presented to the emergency department via EMS minimally responsive after bystanders found her down. Per ED note, patient was given an unknown amount of Narcan with improvement in mental status. At time of my assessment and evaluation, patient is refusing to talk to me however when I ask her if she will stay in the hospital for treatment for her bacteremia she reports yes. She is demanding food prior to continuing conversation. On 01/20 patient was admitted for cellulitis and found to have MRSA and staph species in her blood. Initial laboratory results: WBC is 11.7, Hgb & Hct 8.9/27.7, Na 133, carbon dioxide 21, random glucose 179, albumin 3.3, blood cultures obtained and pending. In the emergency department the above was performed and patient received 1750 mg IV vancomycin 1 mg IV hydromorphone. The decision was made to admit patient for medical management. Review of Systems 2 Review of Systems: A complete 12 point review of systems was performed and are negative if not noted in HPI. [facility] Medical History MDD (major depressive disorder), recurrent, severe, with psychosis Opioid use disorder, moderate, dependence Polysubstance abuse Cocaine use disorder History of drug dependence/abuse Atypical bipolar disorder Opiate withdrawal Acute anxiety Drug-induced psychotic disorder Depression PTSD (post-traumatic stress disorder) Anxiety Depression Social History Household Members: Family Household Members Other:: grandmother,uncle Housing: Condominium Housing Other:: Homeless Do you presently have visiting nurse or other home services: No Unable to assess alcohol history related to: Refusing to respond 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: never 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 Patient Tobacco Use Status: Current everyday Tobacco user Tobacco use type: Cigarette Cigarette Packs Per Day: 1.5 Cigarettes Per Day: 20 Years Smoked: 26 Smoked in Last 30 Days: Yes e-Cigarette/Vaping Use: Never Used Patient Interested in Nicotine Replacement: Yes Patient Given Instructions on How to Stop Smoking: No Second Hand Smoke Exposure: No Use of substances other than those prescribed or required for medical reasons: Yes Substance Use Type: Crack/Cocaine and Heroin Substance Use Frequency: Daily Last Used Substance: Days (ago) Currently Displaying Signs/Symptoms of Drug Intoxication Withdrawal: No Any prior treatment program specific to substance use: Yes (pt takes 24 mg suboxone daily.) Have you been hit, kicked, punched, or otherwise hurt by someone within the past year? If so, by whom?: No Do you feel safe in your current relationship?: No Current Relationship Is there a partner from a previous relationship who is making you feel unsafe now?: No Are you made to feel afraid or neglected: No Advance Directives: Yes Advance Directives on File: Yes Advance Directives Date on File: 08/15/23 Do you have a plan to hurt others: No Plan Recently lost weight without trying: No How much weight loss: Not applicable Eating poorly because of decreased appetite: No Nutrition screen score: 0 Nutrition Risks: No Nutritional Risk Patient : No : No Poor oral hygiene: No service: No Current occupational status: unemployed Sexual orientation: Don't Know Meds Allergies Allergy/AdvReac Type Severity Reaction Status Date / Time methadone Allergy Severe Anaphylaxis Verified 01/25/24 14:11 Active Medications: Current Medications Acetaminophen (Acetaminophen 325 Mg Tablet) 650 mg PO Q6H PRN PRN Reason: Pain, Mild (Pain Scale 1-3), fever or headache Hydromorphone HCl (Hydromorphone Hcl 1 Mg/Ml Syringe) 0.5 mg IVPUSH Q4H PRN; Protocol PRN Reason: Pain, Moderate(Pain Scale 4-6) Hydromorphone HCl (Hydromorphone Hcl 1 Mg/Ml Syringe) 1 mg IVPUSH Q4H PRN; Protocol PRN Reason: Pain, Severe (Pain Scale 7-10) Vancomycin HCl 1,000 mg/Vancomycin HCl 750 mg/ Sodium Chloride 535 mls @ 267.5 mls/hr IV ONCE ONE Stop: 01/25/24 20:29 Ondansetron HCl (Ondansetron Hcl 4 Mg/2 Ml Vial) 4 mg IVPUSH Q8H PRN PRN Reason: Nausea and Vomiting Senna (Sennosides 8.6 Mg Tablet) 17.2 mg PO BEDTIME PRN PRN Reason: constipation Sodium Chloride (0.9 % Sodium Chloride Flush 3 Ml Syringe) 3 ml IVFLUSH QSHIFT [facility] Home Medications ?Medication ?Instructions ?Recorded ?Confirmed ?Last Taken ?Type melatonin 1 mg tablet 6 mg PO BEDTIME PRN Sleep 11/17/23 01/25/24 11/28/23 History buprenorphine 8 mg-naloxone 2 mg 3 film sublingual DAILY 01/21/24 01/25/24 Unknown History sublingual film (Suboxone) Physical Exam 2 Vital Signs and Narrative: Vital Signs: Last Vital Signs Temp 100.0 F 01/25/24 14:29 Pulse 77 01/25/24 14:29 Resp 16 01/25/24 14:10 BP 122/77 01/25/24 14:10 Pulse Ox 96 01/25/24 14:10 O2 Del Method Room Air 01/25/24 14:10 BMI result Body Mass Index 29.7 Const: Other: General: Appears stated age, in no acute distress, diaphoretic, refuses answers questions, patient refuses to let me examine her Skin: From what is observed, skin is Warm , track nieves noted to the upper and lower extremities Neuro: Alert to person, place and situation Psych: Agitated, slightly restless Results Labs 01/25/24 17:08 01/25/24 17:08 Labs: Laboratory Results - last 24 hr 01/25/24 01/25/24 01/25/24 17:08 17:09 17:19 MCV 84.2 MCH 27.1 MCHC 32.1 RDW 15.9 Plt Count 275 MPV 10.1 Immature Gran % (Auto) 0.5 H Neut % (Auto) 82.5 H Lymph % (Auto) 11.5 L [place] % (Auto) 3.8 Eos % (Auto) 1.4 Baso % (Auto) 0.3 Lymph # (Auto) 1.4 [place] # (Auto) 0.5 Eos # (Auto) 0.2 Baso # (Auto) 0.0 Abs Immat Gran (auto) 0.06 H Absolute Neuts (auto) 9.7 H Absolute Nucleated RBC 0.000 Nucleated RBC % (auto) 0.0 Smear Tech's Comments VERIFIED Hold Purple Top SEE NOTE Anion Gap 15 Estim Creat Clear Calc 92.7 Estimated GFR > 60 Random Glucose 179 H Lactic Acid 1.0 Calcium 8.8 Magnesium 2.0 Total Bilirubin 0.3 Direct Bilirubin 0.1 AST 23 ALT 13 Alkaline Phosphatase 62 Total Protein 6.5 Albumin 3.3 L Influenza Type A (PCR) NEGATIVE Influenza Type B (PCR) NEGATIVE RSV RNA Qual (PCR) NEGATIVE SARS-CoV-2 RNA (RT-PCR) NEGATIVE Assessment and Plan (1) Polymicrobial bacterial infection: Status: Acute (2) Drug abuse, IV: Status: Acute (3) Cellulitis: Qualifiers: Laterality: left Site of cellulitis: extremity Site of cellulitis of extremity: lower extremity Qualified Code(s): L03.116 - Cellulitis of left lower limb Status: Acute Plan ACUTE MEDICAL ISSUES: Accidental overdose - Patient reportedly with attempting to get high and had an accidental overdose, she denies SI/HI - She needed an unknown amount of Narcan for improvement in mentation - Continue to monitor her mentation, low threshold for Narcan administration and our security to check for contraband Polymicrobial bacteremia (MRSA & Staphylococcus aureus #2.) - IV vancomycin, IV analgesics, antiemetics and antipyretics ordered - Consider Infectious Disease consult and or echocardiogram - Review recent progress note on 01/23/2024 shows the ID recommendations were: After 4 weeks of IV vancomycin is continued will need to check TTE History of leaving against medical advice - Patient recently left AMA 2 days ago as she ?wanted to get high? - Currently patient is agreeable to stay - Consider addiction medicine consult CHRONIC LONGSTANDING MEDICAL ISSUES: Intravenous drug use /polysubstance use/abuse - Patient is normally maintained on Suboxone however she continues ?to get high? - Again, consider addiction medicine consult Hypertension - Propranolol continued Peripheral neuropathy - Gabapentin continued PTSD Bipolar disorder Major depressive disorder Insomnia - Patient normally takes clonazepam, melatonin, Zyprexa OTHER DVT prophylaxis -Intermittent sequential boots. Patient is a full code Emergency contact patient lists as Leonidas Yousif, Secondary emergency contact is Ayad Eduardo, Quality Stroke Does the patient have a stroke diagnosis?: No VTE Prior VTE?: No VTE Risk Level:: Medical - moderate - high VTE Device Contraindication: N/A - Device Ordered VTE Drug Contraindication: Treatment Not Indicated
[2024-01-25] MEDS: vancomycin HCL 1,000 MG, vancomycin HCL 750 MG in 0.9 % Sodium Chloride 500 ML 267.5 MG IV (19:14)
--- NOTE | 2024-01-25 19:45 | PHA.PROG ---
Admission Date/Time: January 25, 2024 18:06 Indication: BACTEREMIA Weight in k.1 kg Serum Creatinine - Last 168 Hours 01/25/24 17:08 Creatinine 0.72 Estimated CrCl and GFR - Last 168 Hours 01/25/24 17:08 Estim Creat Clear Calc 92.7 Estimated GFR > 60 Vancomycin Loading Dose: 1750 Current Vancomycin Dosin Q 8H Vancomycin Monitoring using AUC goal of 400 - 600 range with trough as surrogate marker: 509 Date and Time for next Vancomycin Level to be drawn: 01/25 @ 1700 Pharmacist Comments on Vancomycin Plan: Vancomycin dosing will take advantage of [employer] as a clinical decision support tool that uses Bayesian modeling to calculate individual patient's pharmacokinetic parameters and forecast the patient's drug concentration time course with the target goal AUC 24 range of 400 - 600 mg/L/hr.
--- NOTE | 2024-01-25 20:24 | PHA.MEDREC ---
Addendum entered by Mathew Isaac RPh 01/25/24 21:29: MED REC CHECKED BY [facility] Original Note: Pharmacy Consult ? Medication Reconciliation Pharmacy has completed the medication reconciliation. Tried to speak to patient, however patient is non responsive. Tried multiple times to reach contact on file with no luck(voicemail was full). Patient was Just at [facility] two days , however there is no discharge packet due to patient leaving AMA. Utilized last rec and notes to confirm med list.
[2024-01-25 20:50] VITALS: BP 99/57; PULSE 81; RESP 16; TEMP 36.8; O2SAT 98
[2024-01-25 21:06] VITALS: BMI 29.9
[2024-01-25 21:08] VITALS: BP 103/59; PULSE 79; RESP 18; TEMP 36.6; O2SAT 95
[2024-01-25] MEDS: 0.9 % Sodium Chloride Flush 3 ML SYRINGE IVFLUSH (21:20)
[2024-01-25] MEDS: Baclofen 10 MG TABLET PO (22:17)
[2024-01-25] MEDS: clonazePAM 0.5 MG TABLET PO (22:17)
[2024-01-25] MEDS: OLANZapine 5 MG TABLET PO (22:17)
[2024-01-25] MEDS: Gabapentin 400 MG CAPSULE 800 MG PO (22:17)
[2024-01-25] MEDS: Propranolol HCL 10 MG TABLET PO (22:17)
[2024-01-25] MEDS: Buprenorphine/Naloxone 4/1 mg FILM 1 FILM SUBLINGUAL (22:18)
[2024-01-26] MEDS: vancomycin HCL 750 MG in 0.9 % Sodium Chloride 250 ML 265 MG IV ×2 (01:51→12:36)
[2024-01-26] MEDS: HYDROmorphone HCl 1 MG/ML SYRINGE IVPUSH ×5 (01:57→21:24)
[2024-01-26 03:35] VITALS: BP 97/51; PULSE 86; RESP 18; TEMP 36.3; O2SAT 95
[2024-01-26 05:14] LABS: Appearance Urine Clear; Color Urine Yellow; Glucose Urine UA Negative (Negative); Leukocyte Esterase Urine Negative (Negative); Nitrite Urine Negative (Negative); Specific Gravity - Urine 1.025 (1.005-1.025); Urine Blood Negative (Negative); Urine Ketones Trace mg/dL (Negative); Urine Protein Negative (Neg-Trace)
[2024-01-26 05:16] LABS: UPreg QC Valid YES; Urine Pregnancy NEGATIVE (NEGATIVE)
[2024-01-26 05:28] LABS: Amphetamine Screen Urine Not Detected (Not Detect); Barbiturates, Urine Not Detected (Not Detect); Benzodiazepines Screen Urine POSITIVE (Not Detect); Buprenorphine Scr Positive (Not Detect); Cannabinoid Screen Urine Not Detected (Not Detect); Cocaine Screen Urine POSITIVE (Not Detect); Fentanyl, urine POSITIVE (Not Detect); Methadone Screen, Urine Not Detected (Not Detect); Opiate Screen Urine POSITIVE (Not Detect); Oxycodone Screen Urine Not Detected (Not Detect); Phencyclidine Screen Urine Not Detected (Not Detect)
--- NOTE | 2024-01-26 07:27 | P.PNIM_ITS ---
Subjective Subjective Date of Service: 01/26/24 Interval History: Follow up OD, MRSA bacteremia having body pain and withdrawal symptoms Physical Exam 2 Vital Signs: Vital Signs: Last Vital Signs Temp 97.3 F 01/26/24 03:35 Pulse 86 01/26/24 03:35 Resp 18 01/26/24 03:35 BP 97/51 L 01/26/24 03:35 Pulse Ox 95 01/26/24 03:35 O2 Del Method Room Air 01/26/24 03:35 BMI result Body Mass Index 29.9 Appearing in no acute distress lung sounds are clear to auscultation heart regular rate rhythm, clear S1, S2 positive bowel sounds, abdomen is soft, nontender neuro patient is alert x3, no focal deficits Scabs all over skin Objective Data Active Medications Acetaminophen (Acetaminophen 325 Mg Tablet) 650 mg PO Q6H PRN PRN Reason: Pain, Mild (Pain Scale 1-3), fever or headache Gabapentin (Gabapentin 400 Mg Capsule) 800 mg PO TID [facility] Hydromorphone HCl (Hydromorphone Hcl 1 Mg/Ml Syringe) 0.5 mg IVPUSH Q4H PRN; Protocol PRN Reason: Pain, Moderate(Pain Scale 4-6) Hydromorphone HCl (Hydromorphone Hcl 1 Mg/Ml Syringe) 1 mg IVPUSH Q4H PRN; Protocol PRN Reason: Pain, Severe (Pain Scale 7-10) Last Admin: 01/26/24 01:57 Dose: 1 mg Documented By: CHRISTIANO Vancomycin HCl 750 mg/ Sodium (Chloride) 265 mls @ 265 mls/hr IV Q8H [facility] Last Infusion: 01/26/24 03:14 Dose: Infused Documented By: CHRISTIANO Olanzapine (Olanzapine 5 Mg Tablet) 5 mg PO BID [facility] Ondansetron HCl (Ondansetron Hcl 4 Mg/2 Ml Vial) 4 mg IVPUSH Q8H PRN PRN Reason: Nausea and Vomiting Pharmacy Consult (Consult Rx Vancomycin Dosing) 1 each MISCELLANE DAILY PRN PRN Reason: Consult order Propranolol HCl (Propranolol Hcl 10 Mg Tablet) 10 mg PO BID [facility]; Protocol Senna (Sennosides 8.6 Mg Tablet) 17.2 mg PO BEDTIME PRN PRN Reason: constipation Sodium Chloride (0.9 % Sodium Chloride Flush 3 Ml Syringe) 3 ml IVFLUSH QSHIFT [facility] Last Admin: 01/25/24 21:20 Dose: 3 ml Documented By: CONY Labs 01/25/24 17:08 01/25/24 17:08 Labs: Laboratory Results - last 24 hr 01/25/24 01/25/24 01/25/24 17:08 17:09 17:19 MCV 84.2 MCH 27.1 MCHC 32.1 RDW 15.9 Plt Count 275 MPV 10.1 Immature Gran % (Auto) 0.5 H Neut % (Auto) 82.5 H Lymph % (Auto) 11.5 L [place] % (Auto) 3.8 Eos % (Auto) 1.4 Baso % (Auto) 0.3 Lymph # (Auto) 1.4 [place] # (Auto) 0.5 Eos # (Auto) 0.2 Baso # (Auto) 0.0 Abs Immat Gran (auto) 0.06 H Absolute Neuts (auto) 9.7 H Absolute Nucleated RBC 0.000 Nucleated RBC % (auto) 0.0 Smear Tech's Comments VERIFIED Hold Purple Top SEE NOTE Anion Gap 15 Estim Creat Clear Calc 92.7 Estimated GFR > 60 Random Glucose 179 H Lactic Acid 1.0 Calcium 8.8 Magnesium 2.0 Total Bilirubin 0.3 Direct Bilirubin 0.1 AST 23 ALT 13 Alkaline Phosphatase 62 Total Protein 6.5 Albumin 3.3 L Urine Color Urine Appearance Urine pH Ur Specific [place] Urine Protein Urine Glucose (UA) Urine Ketones Urine Blood Urine Nitrite Ur Leukocyte Esterase Urine Test Urine Opiates Screen Ur Buprenorphine Scrn Ur Oxycodone Screen Urine Methadone Screen Urine Fentanyl Screen Ur Barbiturates Screen Ur Phencyclidine Scrn Ur Amphetamines Screen U Benzodiazepines Scrn Urine Cocaine Screen U Marijuana (THC) Screen Influenza Type A (PCR) NEGATIVE Influenza Type B (PCR) NEGATIVE RSV RNA Qual (PCR) NEGATIVE SARS-CoV-2 RNA (RT-PCR) NEGATIVE 01/26/24 Unknown MCV MCH MCHC RDW Plt Count MPV Immature Gran % (Auto) Neut % (Auto) Lymph % (Auto) [place] % (Auto) Eos % (Auto) Baso % (Auto) Lymph # (Auto) [place] # (Auto) Eos # (Auto) Baso # (Auto) Abs Immat Gran (auto) Absolute Neuts (auto) Absolute Nucleated RBC Nucleated RBC % (auto) Smear Tech's Comments Hold Purple Top Anion Gap Estim Creat Clear Calc Estimated GFR Random Glucose Lactic Acid Calcium Magnesium Total Bilirubin Direct Bilirubin AST ALT Alkaline Phosphatase Total Protein Albumin Urine Color Yellow Urine Appearance Clear Urine pH 6.0 Ur Specific [place] 1.025 Urine Protein Negative Urine Glucose (UA) Negative Urine Ketones Trace Urine Blood Negative Urine Nitrite Negative Ur Leukocyte Esterase Negative Urine Test NEGATIVE Urine Opiates Screen POSITIVE H Ur Buprenorphine Scrn Positive H Ur Oxycodone Screen Not Detected Urine Methadone Screen Not Detected Urine Fentanyl Screen POSITIVE H Ur Barbiturates Screen Not Detected Ur Phencyclidine Scrn Not Detected Ur Amphetamines Screen Not Detected U Benzodiazepines Scrn POSITIVE H Urine Cocaine Screen POSITIVE H U Marijuana (THC) Screen Not Detected Influenza Type A (PCR) Influenza Type B (PCR) RSV RNA Qual (PCR) SARS-CoV-2 RNA (RT-PCR) Assessment and Plan (1) MDD (major depressive disorder), recurrent, severe, with psychosis: Status: Acute Plan 38-year-old woman admitted with MRSA bacteremia, initial admission 2 days ago came in with body pain Polymicrobial bacteremia (MRSA & Staphylococcus aureus ) IV vancomycin, IV analgesics, antiemetics and antipyretics ordered Infectious Disease consult echocardiogram Accidental overdose Patient reportedly with attempting to get high and had an accidental overdose, she denies SI/HI She needed an unknown amount of Narcan for improvement in mentation Continue to monitor her mentation, low threshold for Narcan administration and our security to check for contraband Intravenous drug use /polysubstance use/abuse Patient is normally maintained on Suboxone however she continues ?to get high? addiction medicine consult, patients would prefer methadone Hypertension Propranolol continued Peripheral neuropathy Gabapentin continued PTSD Bipolar disorder Major depressive disorder Insomnia Patient normally takes clonazepam, melatonin, Zyprexa DVT prophylaxis Intermittent sequential boots. Patient is a full code Emergency contact patient lists as Leonidas Yousif, Secondary emergency contact is Ayad Eduardo, Quality Stroke Does the patient have a stroke diagnosis?: No VTE Prior VTE?: No VTE Risk Level:: Medical - moderate - high VTE Device Contraindication: N/A - Device Ordered VTE Drug Contraindication: Treatment Not Indicated
[2024-01-26 07:41] VITALS: BP 103/65; PULSE 81; RESP 14; TEMP 36.1; O2SAT 96
[2024-01-26] MEDS: OLANZapine 5 MG TABLET PO ×2 (08:41→20:02)
[2024-01-26] MEDS: 0.9 % Sodium Chloride Flush 3 ML SYRINGE IVFLUSH ×3 (08:41→23:53)
[2024-01-26] MEDS: clonazePAM 0.5 MG TABLET PO (08:41)
[2024-01-26] MEDS: Buprenorphine/Naloxone 8/2 mg FILM 3 FILM SUBLINGUAL (08:41)
[2024-01-26] MEDS: Gabapentin 400 MG CAPSULE 800 MG PO ×3 (08:41→20:02)
[2024-01-26] MEDS: Propranolol HCL 10 MG TABLET PO ×2 (08:41→20:02)
--- NOTE | 2024-01-26 12:52 | MHC.CM.PN ---
Pt lives at home with her grandmother, states she has mental health services. HCP on file and verified. This CM met with pt to discuss going to [facility] to receive 4 weeks of IV antibiotics. Pt asked if she could stay at the hospital to receive the IV antibiotics, when this CM said no, pt stated I guess, regarding willingness to go to a facility. Pt does not have a PCP.
[2024-01-26 15:31] VITALS: BP 119/69; PULSE 90; RESP 14; TEMP 36.6; O2SAT 94
[2024-01-26] MEDS: LORazepam 2 MG/ML VIAL 1 MG IVPUSH ×2 (15:46→23:53)
[2024-01-26] MEDS: Acetaminophen 325 MG TABLET 650 MG PO (16:55)
[2024-01-26 17:15] LABS: Basophils Percent Auto 0.3 % (0-2); Eosinophils Absolute Auto 0.2 X10*3/uL (0.0-0.4); Eosinophils Percent Auto 2.4 % (0-4); Hematocrit 27.6 % (37.0-47.0); Hemoglobin 8.8 g/dl (12.0-16.0); Imm Gran Abs Auto 0.04 X10*3/uL (0.00-0.03); Imm Gran Pct Auto 0.4 % (0.0-0.4); Lymphocytes Absolute Auto 2.2 X10*3/uL (1.2-4.9); Lymphocytes Percent Auto 24.3 % (20-40); MANUAL DIFF FLAG SCAN; Mean Corpuscular HGB Conc 31.9 g/dl (31.0-35.0); Mean Corpuscular Hemoglobin 27.3 pg (27.0-33.0); Mean Corpuscular Volume 85.7 fL (80.0-98.0); Mean Platelet Volume 11.2 fL (9.4-12.3); Monocytes Absolute Auto 0.5 X10*3/uL (0.1-1.2); Monocytes Percent Auto 5.3 % (2-11); Neutrophils Absolute Auto 6.1 x10*3/uL (2.0-8.3); Neutrophils Percent Auto 67.3 % (45-73); PLT CLUMP 1; Red Blood Count 3.22 X10*6/uL (4.20-5.50); Red Cell Distribution Width 16.2 % (11.0-16.0); SCAN SMEAR FLAG 1
[2024-01-26 17:33] LABS: Alanine Aminotransferase 8 U/L (0-31); Alkaline Phosphatase 74 U/L (39-117); Anion Gap 14 (12-20); Aspartate Amino Transferase 18 U/L (5-31); Bilirubin Total 0.1 mg/dL (0.0-1.0); Blood Urea Nitrogen 8 mg/dL (9-16); Calcium 8.2 mg/dL (8.4-10.2); Carbon Dioxide 23 mmol/L (22-29); Chloride 107 mmol/L (96-108); Creatinine Clr Calc Pharmacy 84.7; Estimated Glomerular Filt Rate > 60; Glucose Random 139 mg/dL (60-115); Potassium 3.7 mmol/L (3.3-5.1); Sodium 140 mmol/L (135-145); Total Protein 5.9 g/dL (6.5-8.0)
[2024-01-26 17:37] LABS: Vancomycin Random 4.8 mcg/mL (15-20)
[2024-01-26 18:37] LABS: Platelet Count 200 X10*3/uL (160-400)
[2024-01-26 18:38] LABS: SLIDE REVIEW VERIFIED
[2024-01-26] MEDS: vancomycin HCL 1,500 MG in 0.9 % Sodium Chloride 500 ML 333.33 MG IV (19:32)
[2024-01-26 19:40] VITALS: BP 113/56; PULSE 100; RESP 18; TEMP 36.2; O2SAT 96
[2024-01-26] MEDS: oxyCODONE HCl Immed Release 5 MG TABLET 10 MG PO (20:02)
[2024-01-27] MEDS: vancomycin HCL 1,500 MG in 0.9 % Sodium Chloride 500 ML 333.33 MG IV ×2 (02:45→10:33)
[2024-01-27] MEDS: HYDROmorphone HCl 1 MG/ML SYRINGE IVPUSH ×3 (03:01→15:58)
[2024-01-27 03:44] VITALS: BP 131/80; PULSE 90; RESP 18; TEMP 37.4; O2SAT 99
[2024-01-27] MEDS: Gabapentin 400 MG CAPSULE 800 MG PO ×2 (06:52→15:56)
[2024-01-27] MEDS: oxyCODONE HCl Immed Release 5 MG TABLET 10 MG PO (06:52)
[2024-01-27] MEDS: OLANZapine 5 MG TABLET PO (06:52)
[2024-01-27] MEDS: Propranolol HCL 10 MG TABLET PO (06:52)
[2024-01-27] MEDS: 0.9 % Sodium Chloride Flush 3 ML SYRINGE IVFLUSH ×2 (06:53→15:56)
[2024-01-27] MEDS: Buprenorphine/Naloxone 8/2 mg FILM 3 FILM SUBLINGUAL (06:53)
--- NOTE | 2024-01-27 07:00 | CA_ITS ---
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 The visually estimated ejection fraction is between 60-65%. - No obvious valvular pathology seen on this study. Findings Procedure Information The study quality is limited by the patients inability to tolerate the test and an uncooperative patient. Left Ventricle Normal left ventricular cavity size. There is normal left ventricular wall thickness. The left ventricular systolic function is normal. The visually estimated ejection fraction is between 60-65%. There is no evidence of regional wall motion abnormalities. Diastolic function is indeterminate on the basis of available data. Right Ventricle Normal right ventricular cavity size and systolic function. Atria The left atrium was not well visualized. The right atrium was not well visualized. Aortic Valve There is a normal trileaflet aortic valve. There is no aortic valve stenosis. There is no aortic valve regurgitation. Mitral Valve The mitral valve appears normal. There is no mitral valve regurgitation. There is no mitral valve stenosis. Pulmonic Valve The pulmonic valve was not well visualized. Tricuspid Valve There is trace tricuspid valve regurgitation. There is no evidence of pulmonary hypertension. Great Vessels The asc aorta is normal in size. Venous The inferior vena cava was not well visualized. Pericardium/Pleural There is no evidence of pericardial effusion. Prior Study Comparison No significant change compared to prior study dated: 11/13/2023. Recommendations, Care & Conclusions No obvious valvular pathology seen on this study. Measurements 2D Linear Measurements IVSd: 0.76 0.6-0.9/0.6-1.0 cm LVIDd: 5.23 3.9-5.3/4.2-5.9 cm LVIDd Index: 3.13 2.4-3.2/2.2-3.1 cm/m2 LVIDs: 3.40 2.0-3.6 cm LVPWd: 0.83 0.7-1.1 cm LA Diam: 3.70 2.7-3.8/3.0-4.0 cm LAIDs Index: 2.22 1.5-2.3 cm/m2 LV Mass: 180.26 67-162/88-224 g LV Mass Index: 107.94 43-95/49-115 g/m2 LVOT Diam: 2.20 3.0+(-)1.3 cm LVOT LVOT Diam: 2.20 LVOT Area: 3.80 Great Vessels Aorta Sinus of Valsalva: 3.61 2.0-3.5 cm Ao Asc: 3.40 2.1-3.4 cm Updated in Other Vendor System with Status of Final Joseph Mehta MD electronically signed on 01/27/2024 11:56:31 AM with status of Final
[2024-01-27 07:27] VITALS: BP 113/69; PULSE 85; RESP 20; TEMP 37.6; O2SAT 94
[2024-01-27] MEDS: LORazepam 2 MG/ML VIAL 1 MG IVPUSH (08:18)
[2024-01-27 09:24] LABS: Estimated Glomerular Filt Rate > 60
--- NOTE | 2024-01-27 11:24 | HO.PM.IMPN ---
Subjective Subjective Date of Service: 01/27/24 Interval History: Still complains of diffuse body aches despite medicines. Nods off during conversation Review of Systems Denies chest pain Denies shortness of breath Denies nausea vomiting diarrhea Denies fever and chills Physical Exam Vital Signs: Vital Signs: Last Vital Signs Temp 99.6 F 01/27/24 07:27 Pulse 85 01/27/24 07:27 Resp 20 01/27/24 07:27 BP 113/69 01/27/24 07:27 Pulse Ox 94 01/27/24 07:27 O2 Del Method Room Air 01/27/24 07:27 BMI result Body Mass Index 29.9 Const: Other: Somnolent but arousable. No acute distress Resp: Other: Clear to auscultation bilaterally no rales rhonchi or wheezes Cardio: Other: No S4; positive S1-S2; no S3 murmurs rubs or gallops GI: Other: Soft nontender nondistended normoactive bowel sounds Extrem: Other: No edema bilaterally Objective Data Active Medications Acetaminophen (Acetaminophen 325 Mg Tablet) 650 mg PO Q6H PRN PRN Reason: Pain, Mild (Pain Scale 1-3), fever or headache Last Admin: 01/26/24 16:55 Dose: 650 mg Documented By: CATHERINE Buprenorphine/Naloxone (Buprenorphine/Naloxone 8/2 Mg Film) 3 film SUBLINGUAL DAILY [facility] Last Admin: 01/27/24 06:53 Dose: 3 film Documented By: FLACO Gabapentin (Gabapentin 400 Mg Capsule) 800 mg PO TID [facility] Last Admin: 01/27/24 06:52 Dose: 800 mg Documented By: FLACO Hydromorphone HCl (Hydromorphone Hcl 1 Mg/Ml Syringe) 1 mg IVPUSH Q4H PRN; Protocol PRN Reason: Pain, Severe (Pain Scale 7-10) Last Admin: 01/27/24 07:16 Dose: 1 mg Documented By: GOLDEN Vancomycin HCl 1,500 mg/ (Sodium Chloride) 500 mls @ 333.333 mls/hr IV Q8H [facility] Last Admin: 01/27/24 10:33 Dose: 333.33 mls/hr Documented By: GOLDEN Lorazepam (Lorazepam 2 Mg/Ml Vial) 1 mg IVPUSH Q6H PRN PRN Reason: withdrawal Last Admin: 01/27/24 08:18 Dose: 1 mg Documented By: GOLDEN Olanzapine (Olanzapine 5 Mg Tablet) 5 mg PO BID [facility] Last Admin: 01/27/24 06:52 Dose: 5 mg Documented By: FLACO Ondansetron HCl (Ondansetron Hcl 4 Mg/2 Ml Vial) 4 mg IVPUSH Q8H PRN PRN Reason: Nausea and Vomiting Oxycodone HCl (Oxycodone Hcl Immed Release 5 Mg Tablet) 10 mg PO Q6H PRN PRN Reason: withdrawal Last Admin: 01/27/24 06:52 Dose: 10 mg Documented By: FLACO Pharmacy Consult (Consult Rx Vancomycin Dosing) 1 each MISCELLANE DAILY PRN PRN Reason: Consult order Propranolol HCl (Propranolol Hcl 10 Mg Tablet) 10 mg PO BID [facility]; Protocol Last Admin: 01/27/24 06:52 Dose: 10 mg Documented By: FLACO Senna (Sennosides 8.6 Mg Tablet) 17.2 mg PO BEDTIME PRN PRN Reason: constipation Sodium Chloride (0.9 % Sodium Chloride Flush 3 Ml Syringe) 3 ml IVFLUSH QSHIFT [facility] Last Admin: 01/27/24 06:53 Dose: 3 ml Documented By: FLACO Labs 01/26/24 17:01 01/27/24 09:01 Labs: Laboratory Results - last 24 hr 01/26/24 01/27/24 17:01 09:01 MCV 85.7 MCH 27.3 MCHC 31.9 RDW 16.2 H Plt Count 200 D MPV 11.2 Immature Gran % (Auto) 0.4 Neut % (Auto) 67.3 Lymph % (Auto) 24.3 [place] % (Auto) 5.3 Eos % (Auto) 2.4 Baso % (Auto) 0.3 Lymph # (Auto) 2.2 [place] # (Auto) 0.5 Eos # (Auto) 0.2 Baso # (Auto) 0.0 Abs Immat Gran (auto) 0.04 H Absolute Neuts (auto) 6.1 Absolute Nucleated RBC 0.000 Nucleated RBC % (auto) 0.0 Smear Tech's Comments VERIFIED Anion Gap 14 Estim Creat Clear Calc 84.7 100.0 Estimated GFR > 60 > 60 Random Glucose 139 H Calcium 8.2 L D Total Bilirubin 0.1 AST 18 ALT 8 Alkaline Phosphatase 74 Total Protein 5.9 L Albumin 3.0 L Random Vancomycin 4.8 L Microbiology Microbiology Results: Microbiology 01/25/24 17:08 Blood Culture - Preliminary Blood - Venous No growth after 24 hours. 01/25/24 17:08 Blood Culture - Preliminary Blood - Venous No growth after 24 hours. Assessment and Plan (1) Polymicrobial bacterial infection: Status: Acute (2) Drug abuse, IV: Status: Acute (3) Cellulitis: Status: Acute Plan 38-year-old woman admitted with MRSA bacteremia, initial admission 2 days ago came in with body pain;Afebrile since admit 1.Polymicrobial bacteremia (MRSA & Staphylococcus aureus ) -vancomycin(2)...total 4 weeks from negative culture (02/21) -echocardiogram -PICC line ordered 2.Accidental overdose -suboxone as ordered -Addiction Med following/appreciated 3.Hypertension -acceptable control on current therapy -adjust as indicated 4.Peripheral neuropathy -Gabapentin 5.PTSD -clonazepam, melatonin, Zyprexa Intermittent sequential boots. Full code Emergency contact patient lists as Leonidas Yousif, Secondary emergency contact is Ayad Eduardo, Patient requires ongoing hospitalization for IV antibiotics to treat MRSA bacteremia Quality Stroke Does the patient have a stroke diagnosis?: No VTE Prior VTE?: No VTE Risk Level:: Medical - moderate - high VTE Device Contraindication: N/A - Device Ordered VTE Drug Contraindication: Treatment Not Indicated
--- NOTE | 2024-01-27 11:36 | MHC.RECOVRN ---
Attempted to meet with pt for SUDE. Pt laying in bed, asleep, briefly wakes to voice. Continues to fall asleep multiple times during conversation, will attempt to meet later. Flower Donohue APRN, aware.
--- NOTE | 2024-01-27 13:16 | MHC.CM.PN ---
EMR reviewed and per MD rounds, pt is not medically cleared for discharge due to management of bacteremia. Anticipating pt will discharge to [facility] once medically cleared, pt has a bed offer from [facility], pending PICC line placement, and insurance auth.
--- NOTE | 2024-01-27 13:49 | HO.SUDE ---
Unable to complete Substance Use Disorder Evaluation due to current medical conditions and sedation. Flower Donohue APRN, aware.
[2024-01-27] MEDS: Acetaminophen 325 MG TABLET 650 MG PO (15:59)
[2024-01-27 16:00] VITALS: BP 129/84; PULSE 96; RESP 16; TEMP 38; O2SAT 98
--- NOTE | 2024-01-27 18:03 | PC.NURSE ---
Pt wants to leave AMA, MD Dr Carbajal made aware, Pt to sign AMA paperwork per MD, IV removed, Pt escorted to ED to retrieve belongings.
== END 2024-01-27 18:08 | disposition left against medical advice (07) | DRG 816 ==
LOC: HO.ED 18:20 → HO.EDOVER 18:24 → HO.S3 19:19
PROVIDERS: Physician Assistant; Admitting Provider Registered Nurse; Emergency Provider Emergency Medicine; Visit Provider Hospitalist
DX: T40.1X1A Poisoning by heroin, accidental (unintentional), initial encounter (principal); R78.81 Bacteremia; B95.62 Methicillin resistant Staphylococcus aureus infection as the cause of diseases classified elsewhere; F11.20 Opioid dependence, uncomplicated; F17.210 Nicotine dependence, cigarettes, uncomplicated; F19.10 Other psychoactive substance abuse, uncomplicated; I10 Essential (primary) hypertension; F43.10 Post-traumatic stress disorder, unspecified; F31.9 Bipolar disorder, unspecified; G62.9 Polyneuropathy, unspecified; Z71.6 Tobacco abuse counseling; Z20.822 Contact with and (suspected) exposure to COVID-19; Z79.899 Other long term (current) drug therapy
CPT/HCPCS: 0241U; 36415; 80048; 80053; 80076; 80202; 80307; 81003; 81025; 82565; 83605; 83735; 85025; 87040; 93308; 99285; J1171; J2060; J3370; J3371

== ENCOUNTER 2024-01-25 18:06 | Outpatient (BNV) | payer MEDICAID, SELFPAY | END 2024-01-27 07:00 | PROVIDERS: Admitting Provider Registered Nurse; Emergency Provider Emergency Medicine; Visit Provider Internal Medicine | DX: R78.81 Bacteremia (principal); B95.62 Methicillin resistant Staphylococcus aureus infection as the cause of diseases classified elsewhere | CPT/HCPCS: 93308 ==

== ENCOUNTER → 2024-01-25 18:06 | Outpatient (BNV) | payer MEDICAID, SELFPAY | PROVIDERS: Admitting Provider Registered Nurse; Emergency Provider Emergency Medicine; Visit Provider Registered Nurse | DX: A49.9 Bacterial infection, unspecified (principal); F19.10 Other psychoactive substance abuse, uncomplicated; L03.116 Cellulitis of left lower limb | CPT/HCPCS: 99222; 99232 ==

== ENCOUNTER 2024-01-30 20:16 | Emergency (ER) | payer MEDICAID, SELFPAY ==
[2024-01-30 20:25] VITALS: BP 130/88; PULSE 88; O2SAT 97
[2024-01-30 20:44] VITALS: BP 106/72; PULSE 80; RESP 18; TEMP 36.6; O2SAT 97; BMI 22.3
--- NOTE | 2024-01-30 20:44 | ED.GENADULT ---
HPI - General Adult General Chief complaint: General Medical Stated complaint: IVDA INFECTION Related Data Home Medications ?Medication ?Instructions ?Recorded ?Confirmed melatonin 1 mg tablet 6 mg PO BEDTIME PRN Sleep 11/17/23 01/25/24 buprenorphine 8 mg-naloxone 2 mg 3 film sublingual DAILY 01/21/24 01/25/24 sublingual film (Suboxone) Previous Rx's ?Medication ?Instructions ?Recorded clonazepam 0.5 mg tablet 0.5 mg PO BID #14 tabs 11/29/23 olanzapine 5 mg tablet (Zyprexa) 5 mg PO BID #14 tabs 11/29/23 baclofen 10 mg tablet 10 mg PO BID #14 tabs 01/14/24 gabapentin 800 mg tablet 800 mg PO TID #21 tabs 01/14/24 propranolol 10 mg tablet 10 mg PO BID #14 tabs 01/14/24 Allergies Allergy/AdvReac Type Severity Reaction Status Date / Time methadone Allergy Severe Anaphylaxis Verified 01/30/24 20:45 PMFSH Past Medical History Medical History MDD (major depressive disorder), recurrent, severe, with psychosis Opioid use disorder, moderate, dependence Polysubstance abuse Cocaine use disorder History of drug dependence/abuse Atypical bipolar disorder Opiate withdrawal Acute anxiety Drug-induced psychotic disorder Depression PTSD (post-traumatic stress disorder) Anxiety Depression Social History Social History Household Members: Family Household Members Other:: grandmother,uncle Housing: Condominium Housing Other:: Homeless Do you presently have visiting nurse or other home services: No Unable to assess alcohol history related to: Refusing to respond 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: never 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 Patient Tobacco Use Status: Current everyday Tobacco user Tobacco use type: Cigarette Cigarette Packs Per Day: 1.5 Cigarettes Per Day: 20 Years Smoked: 26 e-Cigarette/Vaping Use: Never Used Second Hand Smoke Exposure: No Substance Use Type: Crack/Cocaine and Heroin Advance Directives: Yes Advance Directives on File: Yes Advance Directives Date on File: 01/25/24 Do you have a plan to hurt others: No Plan service: No Current occupational status: unemployed Sexual orientation: Don't Know Physical Exam ED Vital Signs: BMI result Body Mass Index 22.3 Course Course Course Narrative: This is an RME: Additional HPI, ROS, PE not included below will be deferred to primary provider. RME assessment and note performed by: Ela Bourgeois PA-C This is a 38-year-old female with a past medical history significant for major depressive disorder, recurrent with psychosis, history of intravenous drug abuse, opioid use disorder with withdrawal, seizure , recent admission at this facility for MRSA bacteremia however left AMA to get high who presented to the emergency department via EMS due to concerns for a blood infection. Patient was recently admitted on January 24 for polymicrobial bacteremia but left AMA on 01/26. Plan: Labs, EKG, further ER eval needed Reevaluation(s) Reevaluation #1: Patient left without completing treatment. Medical Decision Making Lab Data 01/30/24 21:05 01/30/24 21:05 Labs: Lab Results 01/30/24 Range/Units 21:05 WBC 6.6 (4.8-10.8) X10*3/uL RBC 3.27 L (4.20-5.50) X10*6/uL Hgb 8.8 L (12.0-16.0) g/dl Hct 28.1 L (37.0-47.0) % MCV 85.9 (80.0-98.0) fL MCH 26.9 L (27.0-33.0) pg MCHC 31.3 (31.0-35.0) g/dl RDW 15.9 (11.0-16.0) % Plt Count 390 D (160-400) X10*3/uL MPV 9.1 L (9.4-12.3) fL Immature Gran % (Auto) 0.2 (0.0-0.4) % Neut % (Auto) 70.1 (45-73) % Lymph % (Auto) 20.9 (20-40) % [place] % (Auto) 5.8 (2-11) % Eos % (Auto) 2.7 (0-4) % Baso % (Auto) 0.3 (0-2) % Lymph # (Auto) 1.4 (1.2-4.9) X10*3/uL [place] # (Auto) 0.4 (0.1-1.2) X10*3/uL Eos # (Auto) 0.2 (0.0-0.4) X10*3/uL Baso # (Auto) 0.0 (0.0-0.2) X10*3/uL Abs Immat Gran (auto) 0.01 (0.00-0.03) X10*3/uL Absolute Neuts (auto) 4.6 (2.0-8.3) x10*3/uL Absolute Nucleated RBC 0.000 (0.0-0.012) X10*3/uL Nucleated RBC % (auto) 0.0 (0.0-0.2) /100WBC PT 12.6 H (10.9-12.4) SEC INR 1.1 (0.9-1.1) APTT 31.6 (26.0-36.8) SEC Sodium 137 (135-145) mmol/L Potassium 3.6 (3.3-5.1) mmol/L Chloride 103 (96-108) mmol/L Carbon Dioxide 22 (22-29) mmol/L Anion Gap 16 (12-20) BUN 16 (9-16) mg/dL Creatinine 0.70 (0.5-1.4) mg/dL Estim Creat Clear Calc 94.9 Estimated GFR > 60 Random Glucose 140 H (60-115) mg/dL Calcium 9.5 D (8.4-10.2) mg/dL Total Bilirubin 0.2 (0.0-1.0) mg/dL Direct Bilirubin < 0.2 (0.0-0.5) mg/dL AST 20 (5-31) U/L ALT 12 (0-31) U/L Alkaline Phosphatase 60 (39-117) U/L Troponin I High Sens < 2.7 (<3.5-17.0) ng/L Total Protein 7.9 (6.5-8.0) g/dL Albumin 3.9 (3.5-5.0) g/dL Discharge Plan Discharge Clinical Impression: Drug abuse, IV Patient Disposition: Left W/O Completing Treatment Prescriptions: No Action clonazepam 0.5 mg tablet 0.5 mg PO BID Qty: 14 0RF olanzapine [Zyprexa] 5 mg tablet 5 mg PO BID Qty: 14 0RF gabapentin 800 mg tablet 800 mg PO TID Qty: 21 0RF propranolol 10 mg tablet 10 mg PO BID Qty: 14 0RF baclofen 10 mg tablet 10 mg PO BID Qty: 14 0RF melatonin 1 mg Tablet 6 mg PO BEDTIME PRN (Reason: Sleep) buprenorphine-naloxone [Suboxone] 8-2 mg film 3 film sublingual DAILY Discharge Date/Time: 01/31/24 00:55
[2024-01-30 21:11] LABS: MANUAL DIFF FLAG NO
[2024-01-30 21:13] LABS: Basophils Percent Auto 0.3 % (0-2); Eosinophils Absolute Auto 0.2 X10*3/uL (0.0-0.4); Eosinophils Percent Auto 2.7 % (0-4); Hematocrit 28.1 % (37.0-47.0); Hemoglobin 8.8 g/dl (12.0-16.0); Imm Gran Abs Auto 0.01 X10*3/uL (0.00-0.03); Imm Gran Pct Auto 0.2 % (0.0-0.4); Lymphocytes Absolute Auto 1.4 X10*3/uL (1.2-4.9); Lymphocytes Percent Auto 20.9 % (20-40); Mean Corpuscular HGB Conc 31.3 g/dl (31.0-35.0); Mean Corpuscular Hemoglobin 26.9 pg (27.0-33.0); Mean Corpuscular Volume 85.9 fL (80.0-98.0); Mean Platelet Volume 9.1 fL (9.4-12.3); Monocytes Absolute Auto 0.4 X10*3/uL (0.1-1.2); Monocytes Percent Auto 5.8 % (2-11); Neutrophils Absolute Auto 4.6 x10*3/uL (2.0-8.3); Neutrophils Percent Auto 70.1 % (45-73); Platelet Count 390 X10*3/uL (160-400); Red Blood Count 3.27 X10*6/uL (4.20-5.50); Red Cell Distribution Width 15.9 % (11.0-16.0); White Blood Count 6.6 X10*3/uL (4.8-10.8)
[2024-01-30 21:19] LABS: INTERNATIONAL NORM RATIO 1.1 (0.9-1.1); Prothrombin Time 12.6 SEC (10.9-12.4)
[2024-01-30 21:22] LABS: Partial Thromboplastin Time 31.6 SEC (26.0-36.8)
[2024-01-30 21:38] LABS: Alanine Aminotransferase 12 U/L (0-31); Albumin Level 3.9 g/dL (3.5-5.0); Alkaline Phosphatase 60 U/L (39-117); Anion Gap 16 (12-20); Aspartate Amino Transferase 20 U/L (5-31); Bilirubin Direct < 0.2 mg/dL (0.0-0.5); Bilirubin Total 0.2 mg/dL (0.0-1.0); Blood Urea Nitrogen 16 mg/dL (9-16); Calcium 9.5 mg/dL (8.4-10.2); Carbon Dioxide 22 mmol/L (22-29); Chloride 103 mmol/L (96-108); Creatinine Clr Calc Pharmacy 94.9; Estimated Glomerular Filt Rate > 60; Glucose Random 140 mg/dL (60-115); Potassium 3.6 mmol/L (3.3-5.1); Sodium 137 mmol/L (135-145); Total Protein 7.9 g/dL (6.5-8.0)
[2024-01-30 21:42] LABS: Troponin-I High Sensitivity < 2.7 ng/L (<3.5-17.0)
--- NOTE | 2024-01-31 01:01 | PC.NURSE ---
Pt called multiple times in [facility] for reassessment and availability of room with no answer. This RN checked outside ER entrance, [facility] and [facility] bathrooms, pt not present.
== END 2024-01-31 00:55 | disposition left against medical advice (07) ==
PROVIDERS: Physician Assistant Medical; Emergency Provider Emergency Medicine
DX: F19.10 Other psychoactive substance abuse, uncomplicated (principal); F14.10 Cocaine abuse, uncomplicated; F11.20 Opioid dependence, uncomplicated; F33.3 Major depressive disorder, recurrent, severe with psychotic symptoms; F43.10 Post-traumatic stress disorder, unspecified
CPT/HCPCS: 36415; 80048; 80076; 84484; 85025; 85610; 85730; 87040; 99281

== ENCOUNTER 2024-02-04 13:12 | Inpatient (IN) | payer MEDICAID, SELFPAY ==
--- NOTE | 2024-02-04 13:33 | ED_ITS ---
HPI - General Adult General Chief complaint: General Medical Stated complaint: Infection Time Seen by Provider: 02/04/24 20:58 Source: patient Mode of arrival: ambulatory Limitations: no limitations History of Present Illness ED Provider: chani HUSSEIN narrative: Patient with the IVDA user uses heroin with MRSA bacteremia admitted here left against medical advice on 01/26 supposed to finish IV vancomycin till 02/21 complaining of body aches no fever on arrival been here multiple times for similar reasons Related Data Home Medications ?Medication ?Instructions ?Recorded ?Confirmed melatonin 1 mg tablet 6 mg PO BEDTIME PRN Sleep 11/17/23 02/04/24 buprenorphine 8 mg-naloxone 2 mg 3 film sublingual DAILY 01/21/24 02/04/24 sublingual film (Suboxone) Previous Rx's ?Medication ?Instructions ?Recorded clonazepam 0.5 mg tablet 0.5 mg PO BID #14 tabs 11/29/23 olanzapine 5 mg tablet (Zyprexa) 5 mg PO BID #14 tabs 11/29/23 baclofen 10 mg tablet 10 mg PO BID #14 tabs 01/14/24 gabapentin 800 mg tablet 800 mg PO TID #21 tabs 01/14/24 propranolol 10 mg tablet 10 mg PO BID #14 tabs 01/14/24 Allergies Allergy/AdvReac Type Severity Reaction Status Date / Time methadone Allergy Severe Anaphylaxis Verified 02/04/24 13:39 Review of Systems 2 Review of Systems: Yes all other systems are reviewed and are negative PMFSH Past Medical History Medical History MDD (major depressive disorder), recurrent, severe, with psychosis Opioid use disorder, moderate, dependence Polysubstance abuse Cocaine use disorder History of drug dependence/abuse Atypical bipolar disorder Opiate withdrawal Acute anxiety Drug-induced psychotic disorder Depression PTSD (post-traumatic stress disorder) Anxiety Depression Social History Social History Household Members: Family Household Members Other:: grandmother,uncle Housing: Condominium Housing Other:: Homeless Do you presently have visiting nurse or other home services: No Unable to assess alcohol history related to: Refusing to respond 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: never 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 Patient Tobacco Use Status: Current everyday Tobacco user Tobacco use type: Cigarette Cigarette Packs Per Day: 1.5 Cigarettes Per Day: 20 Years Smoked: 26 e-Cigarette/Vaping Use: Never Used Second Hand Smoke Exposure: No Substance Use Type: Crack/Cocaine and Heroin Advance Directives: Yes Advance Directives on File: Yes Advance Directives Date on File: 01/25/24 service: No Current occupational status: unemployed Sexual orientation: Don't Know Physical Exam ED Vital Signs: Vital Signs - 24 hr 02/04/24 13:35 02/04/24 18:38 02/04/24 20:44 Temperature 97.5 F 97.9 F 97.8 F Pulse Rate 73 65 68 Respiratory Rate 18 16 16 Blood Pressure 101/69 110/69 98/61 Pulse Oximetry 98 97 96 Oxygen Delivery Method Room Air Room Air Room Air BMI result Body Mass Index 22.3 Appearance: Alert. Oriented X3. No acute distress. Eyes: PERRLA, No Nystagmus ENT: Pharynx normal. Oral Mucosa moist Neck: Normal inspection. Neck supple. CVS: Normal heart rate and rhythm. Pulses normal. Respiratory: No respiratory distress. Equal air entry bilateral, no wheezing/rales/rhonchi Abdomen: Soft and nontender. Bowel sounds are present, no mass palpable, no CVA tenderness Skin: Skin warm and dry. Normal skin color. Normal skin turgor. Extremities: No lower extremity edema. No calf tenderness IVDA track nieves Neuro: Oriented X 3. No motor deficit. Course Course Course Narrative: This is an RME: Additional HPI, ROS, PE not included below will be deferred to primary provider. RME assessment and note performed by: Ela Bourgeois PA-C This is a 89-kilo-osu-female who presents to the ER with complaints of concerns for blood infection. She LWCT on 01/29. Reports that several days ago she developed nausea and vomiting. Plan: Labs, EKG, viral swabs Medications Administered Generic Name Dose Route Start Last Admin Trade Name Freq PRN Reason Stop Dose Admin Baclofen 10 mg 02/04/24 21:50 02/04/24 22:55 Baclofen 10 Mg Tablet PO 10 mg BID JAIR Administration Clonazepam 0.5 mg 02/04/24 21:55 02/04/24 22:52 Clonazepam 0.5 Mg Tablet PO 0.5 mg BID JAIR Administration Enoxaparin Sodium 40 mg 02/04/24 22:00 02/04/24 22:52 Enoxaparin Sodium 40 Mg/0.4 Ml Syringe SUBCUT 40 mg Q24H JAIR Administration Ondansetron HCl 4 mg 02/04/24 21:55 02/04/24 22:52 Ondansetron Hcl 4 Mg/2 Ml Vial IVPUSH 4 mg Q8H PRN Administration Nausea and Vomiting Oxycodone HCl 5 mg 02/04/24 21:55 02/04/24 22:54 Oxycodone Hcl Immed Release 5 Mg Tablet PO 5 mg Q6H PRN Administration Pain, Severe (Pain Scale 7-10) Propranolol HCl 10 mg 02/04/24 21:55 02/04/24 23:01 Propranolol Hcl 10 Mg Tablet PO Not Given BID JAIR Protocol Sodium Chloride 3 ml 02/05/24 00:00 02/04/24 23:13 0.9 % Sodium Chloride Flush 3 Ml Syringe IVFLUSH 3 ml QSHIFT JAIR Administration Discontinued Medications Generic Name Dose Route Start Last Admin Trade Name Freq PRN Reason Stop Dose Admin Vancomycin HCl 1,000 mg/ 270 mls @ 270 mls/hr 02/04/24 21:40 02/04/24 23:05 Sodium Chloride IV 02/04/24 22:39 Infused ONCE ONE Infusion Vancomycin HCl 500 mg/ Sodium 110 mls @ 110 mls/hr 02/04/24 23:00 02/04/24 23:12 Chloride IV 02/04/24 23:59 110 mls/hr ONCE ONE Administration Medical Decision Making Medical Decision Making [facility] Narrative: Patient IVDA user with Gram-positive bacteremia MRSA positive in the blood culture on 01/21/2024 will admit patient for IV antibiotics Admission/Observation Consideration of admission/observation: Escalation of care including admission/observation considered Consult Healthcare Provider Management of the patient was discussed with: Hospitalist Lab Data [facility] Lab Attestation statement: I reviewed the patient's lab results. 02/04/24 20:26 02/04/24 20:26 Labs: Lab Results 02/04/24 Range/Units 20:26 WBC 2.9 L (4.8-10.8) X10*3/uL RBC 3.59 L (4.20-5.50) X10*6/uL Hgb 9.5 L (12.0-16.0) g/dl Hct 29.9 L (37.0-47.0) % MCV 83.3 (80.0-98.0) fL MCH 26.5 L (27.0-33.0) pg MCHC 31.8 (31.0-35.0) g/dl RDW 15.7 (11.0-16.0) % Plt Count 351 (160-400) X10*3/uL MPV 9.0 L (9.4-12.3) fL Immature Gran % (Auto) Cancelled Neut % (Auto) Cancelled Lymph % (Auto) Cancelled [place] % (Auto) Cancelled Eos % (Auto) Cancelled Baso % (Auto) Cancelled Lymph # (Auto) Cancelled [place] # (Auto) Cancelled Eos # (Auto) Cancelled Baso # (Auto) Cancelled Abs Immat Gran (auto) Cancelled Absolute Neuts (auto) Cancelled Absolute Nucleated RBC 0.000 (0.0-0.012) X10*3/uL Nucleated RBC % (auto) 0.0 (0.0-0.2) /100WBC Neutrophils % (Manual) 49 (45-73) % Band Neutrophils % 7 H (3-5) % Lymphocytes % (Manual) 28 (20-40) % Atypical Lymphs % (Man) 4 (0-6) % Monocytes % (Manual) 6 (2-11) % Eosinophils % (Manual) 5 H (0-4) % Basophils % (Manual) 1 (0-2) % Abs Neuts (Manual) 1.6 L (2.0-8.3) X10*3/uL Lymphocytes # (Manual) 0.8 L (1.2-4.9) X10*3/uL Atyp Lymphs # (Manual) 0.1 x10*3/uL Monocytes # (Manual) 0.2 (0.1-1.2) X10*3/uL Eosinophils # (Manual) 0.1 (0.0-0.4) X10*3/uL Platelet Estimate NORMAL (NORMAL) Plt Morphology Comment NORMAL RBC Morphology NOTED Polychromasia 1+ (0-2) /OIF Tear Drop Cells 1+ (0-2) /OIF Ovalocytes 1+ (5-14) /OIF Smear Tech's Comments MANUAL DIFF Sodium 136 (135-145) mmol/L Potassium 3.5 (3.3-5.1) mmol/L Chloride 101 (96-108) mmol/L Carbon Dioxide 27 (22-29) mmol/L Anion Gap 12 (12-20) BUN 11 (9-16) mg/dL Creatinine 0.58 (0.5-1.4) mg/dL Estim Creat Clear Calc 114.7 Estimated GFR > 60 Random Glucose 134 H (60-115) mg/dL Calcium 8.9 D (8.4-10.2) mg/dL Magnesium 2.0 (1.6-2.6) mg/dL Total Bilirubin 0.4 (0.0-1.0) mg/dL Direct Bilirubin 0.2 (0.0-0.5) mg/dL AST 127 H (5-31) U/L ALT 150 H (0-31) U/L Alkaline Phosphatase 288 H (39-117) U/L Total Protein 7.6 (6.5-8.0) g/dL Albumin 3.6 (3.5-5.0) g/dL Lipase 7 L (8-78) U/L Beta HCG, Quant < 2 mIU/mL Influenza Type A (PCR) NEGATIVE (Negative) Influenza Type B (PCR) NEGATIVE (Negative) RSV RNA Qual (PCR) NEGATIVE (Negative) SARS-CoV-2 RNA (RT-PCR) NEGATIVE (Negative) Discharge Plan Discharge Clinical Impression: MRSA (methicillin resistant staph aureus) culture positive, Drug abuse, IV Patient Disposition: Admitted As Inpatient
--- NOTE | 2024-02-04 13:34 | ECG_ITS ---
Test Reason : weakness Blood Pressure : / mmHG Vent. Rate : 071 BPM Atrial Rate : 071 BPM P-R Int : 132 ms QRS Dur : 086 ms QT Int : 356 ms P-R-T Axes : 050 -30 040 degrees QTc Int : 386 ms Normal sinus rhythm Left axis deviation Nonspecific T wave abnormality Abnormal ECG When compared with ECG of 21-JAN-2024 16:20, T wave inversion no longer evident in Anterior leads QT has shortened Referred By: Ela Bourgeois Electronically Signed By:LEON FERNANDES MD
[2024-02-04 13:35] VITALS: BP 101/69; PULSE 73; RESP 18; TEMP 36.4; O2SAT 98; BMI 22.3
--- NOTE | 2024-02-04 15:39 | MHC.EDTECH ---
called patient twice for EKG first time no response and second time she was in the bathroom when patient finally came in for blood draw and EKG she was being difficult cursing and yelling
[2024-02-04 18:38] VITALS: BP 110/69; PULSE 65; RESP 16; TEMP 36.6; O2SAT 97
--- NOTE | 2024-02-04 20:27 | MHC.EDTECH ---
Patient brought into triage area,labs,and sars.flu/rsv obtained and sent to lab.
[2024-02-04 20:44] VITALS: BP 98/61; PULSE 68; RESP 16; TEMP 36.6; O2SAT 96
[2024-02-04 20:53] LABS: Hematocrit 29.9 % (37.0-47.0); Hemoglobin 9.5 g/dl (12.0-16.0); Mean Corpuscular HGB Conc 31.8 g/dl (31.0-35.0); Mean Corpuscular Hemoglobin 26.5 pg (27.0-33.0); Mean Corpuscular Volume 83.3 fL (80.0-98.0); Platelet Count 351 X10*3/uL (160-400); Red Blood Count 3.59 X10*6/uL (4.20-5.50); Red Cell Distribution Width 15.7 % (11.0-16.0); White Blood Count 2.9 X10*3/uL (4.8-10.8)
[2024-02-04 21:02] LABS: Alanine Aminotransferase 150 U/L (0-31); Albumin Level 3.6 g/dL (3.5-5.0); Alkaline Phosphatase 288 U/L (39-117); Anion Gap 12 (12-20); Aspartate Amino Transferase 127 U/L (5-31); Bilirubin Direct 0.2 mg/dL (0.0-0.5); Bilirubin Total 0.4 mg/dL (0.0-1.0); Blood Urea Nitrogen 11 mg/dL (9-16); Calcium 8.9 mg/dL (8.4-10.2); Carbon Dioxide 27 mmol/L (22-29); Chloride 101 mmol/L (96-108); Creatinine Clr Calc Pharmacy 114.7; Estimated Glomerular Filt Rate > 60; Glucose Random 134 mg/dL (60-115); Lipase 7 U/L (8-78); Potassium 3.5 mmol/L (3.3-5.1); Sodium 136 mmol/L (135-145); Total Protein 7.6 g/dL (6.5-8.0)
[2024-02-04 21:10] LABS: HCG Quantitative < 2 mIU/mL
[2024-02-04 21:12] LABS: Influenza A PCR NEGATIVE (Negative); Influenza B PCR NEGATIVE (Negative); Resp Syncy Virus RNA Qual PCR NEGATIVE (Negative); SARS COV2 PCR INHOUSE NEGATIVE (Negative)
--- NOTE | 2024-02-04 22:02 | PM.IMHP ---
History of Present Illness Date of Service: 02/04/24 Chief Complaint: Bacteremia Pt is a 38-year-old female with a PMH significant for?polysubstance use disorder, IVDU, hx polymorphic V-tach, MRSA bacteremia, anxiety, depression, and bipolar disorder who presents to the ED with?body pain and asking treatment of bacteremia. The patient is well known to hospitalist team and has recurrent AMA leaving incidents for combative behaviour and unwilling to follow medical advice. she says this time she wants to finish the treatment as long as she is comfortable with the care. No fever or signs suggestive of sepsis. Last negtive blood culture from 01/30/2024. Last positive one from 01/21/24. Will be admitted and restart Vancomycin with plan to finish 4 weeks of IV antibiotics and discuss alternative with ID. Review of Systems Review of Systems: No fever, chills but has generalized weakness No chest pain, palpitation No shortness of breath or coughing No abdominal pain, nausea or vomiting No urinary symptoms PMFSH Medical History MDD (major depressive disorder), recurrent, severe, with psychosis Opioid use disorder, moderate, dependence Polysubstance abuse Cocaine use disorder History of drug dependence/abuse Atypical bipolar disorder Opiate withdrawal Acute anxiety Drug-induced psychotic disorder Depression PTSD (post-traumatic stress disorder) Anxiety Depression Social History Household Members: Family Household Members Other:: grandmother,uncle Housing: Condominium Housing Other:: Homeless Do you presently have visiting nurse or other home services: No Unable to assess alcohol history related to: Refusing to respond 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: never 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 Patient Tobacco Use Status: Current everyday Tobacco user Tobacco use type: Cigarette Cigarette Packs Per Day: 1.5 Cigarettes Per Day: 20 Years Smoked: 26 e-Cigarette/Vaping Use: Never Used Second Hand Smoke Exposure: No Substance Use Type: Crack/Cocaine and Heroin Advance Directives: Yes Advance Directives on File: Yes Advance Directives Date on File: 01/25/24 service: No Current occupational status: unemployed Sexual orientation: Don't Know Meds Allergies Allergy/AdvReac Type Severity Reaction Status Date / Time methadone Allergy Severe Anaphylaxis Verified 02/04/24 13:39 Active Medications: Current Medications Acetaminophen (Acetaminophen 325 Mg Tablet) 650 mg PO Q6H PRN PRN Reason: Pain, Mild (Pain Scale 1-3), fever or headache Baclofen (Baclofen 10 Mg Tablet) 10 mg PO BID [facility] Clonazepam (Clonazepam 0.5 Mg Tablet) 0.5 mg PO BID [facility] Gabapentin (Gabapentin 300 Mg Capsule) 900 mg PO TID [facility] Vancomycin HCl 1,000 mg/ (Sodium Chloride) 270 mls @ 270 mls/hr IV ONCE ONE Stop: 02/04/24 22:39 Melatonin (Melatonin 3 Mg Tablet) 6 mg PO BEDTIME PRN PRN Reason: Insomnia Olanzapine (Olanzapine 5 Mg Tablet) 5 mg PO BID [facility] Pharmacy Consult (Consult Rx Vancomycin Dosing) 1 each MISCELLANE DAILY PRN PRN Reason: Consult order Propranolol HCl (Propranolol Hcl 10 Mg Tablet) 10 mg PO BID [facility]; Protocol Sodium Chloride (0.9 % Sodium Chloride Flush 3 Ml Syringe) 3 ml IVFLUSH QSHIFT [facility] Home Medications ?Medication ?Instructions ?Recorded ?Confirmed ?Last Taken ?Type melatonin 1 mg tablet 6 mg PO BEDTIME PRN Sleep 11/17/23 01/25/24 11/28/23 History buprenorphine 8 mg-naloxone 2 mg 3 film sublingual DAILY 01/21/24 01/25/24 Unknown History sublingual film (Suboxone) Physical Exam Vital Signs and Narrative: Vital Signs: Last Vital Signs Temp 97.8 F 02/04/24 20:44 Pulse 68 02/04/24 20:44 Resp 16 02/04/24 20:44 BP 98/61 02/04/24 20:44 Pulse Ox 96 02/04/24 20:44 O2 Del Method Room Air 02/04/24 20:44 BMI result Body Mass Index 22.3 Const: Other: Constitutional : Awake, interactive, uncomfortable, not in distress Neck : Normal inspection, Supple Cardiovascular : RRR, no JVP, no lower extremity edema Respiratory : good bilateral air entry, no crackles, wheezes or rhonchi Gastrointestinal: soft, lax, Normal bowel sounds, Non tender Skin : Warm, Dry, multiple injection nieves in upper and lower extremities, signs of skin picking, Neurological : Alert & oriented x3, No focal deficit Results Labs 02/04/24 20:26 02/04/24 20:26 Labs: Laboratory Results - last 24 hr 02/04/24 20:26 MCV 83.3 MCH 26.5 L MCHC 31.8 RDW 15.7 Plt Count 351 MPV 9.0 L Immature Gran % (Auto) 0.3 Neut % (Auto) 39.4 L Lymph % (Auto) 44.9 H [place] % (Auto) 10.5 Eos % (Auto) 4.2 H Baso % (Auto) 0.7 Lymph # (Auto) 1.3 [place] # (Auto) 0.3 Eos # (Auto) 0.1 Baso # (Auto) 0.0 Abs Immat Gran (auto) 0.01 Absolute Neuts (auto) 1.1 L Absolute Nucleated RBC 0.000 Nucleated RBC % (auto) 0.0 Anion Gap 12 Estim Creat Clear Calc 114.7 Estimated GFR > 60 Random Glucose 134 H Calcium 8.9 D Magnesium 2.0 Total Bilirubin 0.4 Direct Bilirubin 0.2 AST 127 H ALT 150 H Alkaline Phosphatase 288 H Total Protein 7.6 Albumin 3.6 Lipase 7 L Beta HCG, Quant < 2 Influenza Type A (PCR) NEGATIVE Influenza Type B (PCR) NEGATIVE RSV RNA Qual (PCR) NEGATIVE SARS-CoV-2 RNA (RT-PCR) NEGATIVE Assessment and Plan (1) Intravenous drug abuse: Status: Acute (2) Opioid use disorder, moderate, dependence: Status: Acute (3) MRSA (methicillin resistant staph aureus) culture positive: Status: Acute Plan Pt is a 38-year-old female with a PMH significant for?polysubstance use disorder, IVDU, hx polymorphic V-tach, MRSA bacteremia, anxiety, depression, and bipolar disorder who presents to the ED with?body pain and asking treatment of bacteremia. MRSA bacteremia from IVDU last B.Cx from 01/29 negative. she needs Abx for 4 weeks starting 01/24 (1st negative culture) hold on repeat cultures as no symptoms suggestive of bactermia\sepsis now Continue Vancomycin ID consult follow Vancomycin trough Acute transaminitis likely related to drug abuse to trend hepatitis screen IVDU Addiction medicine consult HTN Continue propranolol Peripheral neuropathy Continue gabapentin Mood disorder Continue clonazepam, olanzapine Full Code DVT Prophylaxis: Lovenox Pt will require a hospitalization for 2 overnight for treatment of?hx MRSA bacteremia from IVDU with IV antibiotics. Quality Stroke Does the patient have a stroke diagnosis?: No VTE Prior VTE?: No VTE Risk Level:: Medical - moderate - high VTE Device Contraindication: Treatment Not Indicated VTE Drug Contraindication: N/A - Med Ordered
[2024-02-04] MEDS: vancomycin HCL 1,000 MG in 0.9 % Sodium Chloride 250 ML 270 MG IV (22:06)
[2024-02-04 22:07] LABS: SLIDE REVIEW MANUAL DIFF
[2024-02-04 22:20] LABS: Atypical Lymph Absolute Manual 0.1 x10*3/uL; Atypical Lymphs Percent Manual 4 % (0-6); Band Neutrophils Percent 7 % (3-5); Basophils Percent Manual 1 % (0-2); Eosinophils Absolute Manual 0.1 X10*3/uL (0.0-0.4); Eosinophils Percent Manual 5 % (0-4); Lymphocytes Absolute Manual 0.8 X10*3/uL (1.2-4.9); Lymphocytes Percent Manual 28 % (20-40); Monocytes Absolute Manual 0.2 X10*3/uL (0.1-1.2); Monocytes Percent Manual 6 % (2-11); Neutrophils Absolute Manual 1.6 X10*3/uL (2.0-8.3); Neutrophils Percent Manual 49 % (45-73); RBC Morphology NOTED
[2024-02-04 22:21] LABS: Ovalocytes 1+ (5-14) /OIF; Polychromasia 1+ (0-2) /OIF
[2024-02-04 22:22] LABS: Platelet Estimate NORMAL (NORMAL); Platelet Morphology Comment NORMAL; Tear Drop Cells 1+ (0-2) /OIF
--- NOTE | 2024-02-04 22:33 | PHA.MEDREC ---
Addendum entered by Brandon Rivas RPh 02/04/24 22:38: Med rec was reviewed by [facility]. Original Note: Pharmacy Consult ? Medication Reconciliation Pharmacy has completed the medication reconciliation. Patient is unapproachable acting out towards staff when she is awake. Patient left AMA 01/27/24 utilized last med rec to confirm med list.
--- NOTE | 2024-02-04 22:37 | PHA.PROG ---
Admission Date/Time: Indication: Bacteremia Weight in k.967 kg Serum Creatinine - Last 168 Hours 02/04/24 20:26 Creatinine 0.58 Estimated CrCl and GFR - Last 168 Hours 02/04/24 20:26 Estim Creat Clear Calc 114.7 Estimated GFR > 60 Vancomycin Loading Dose: 1,500 mg Current Vancomycin Dosing Regimen: 1,000 mg q 12h Vancomycin Monitoring using AUC goal of 400 - 600 range with trough as surrogate marker: 435, predicted trough 12 Date and Time for next Vancomycin Level to be drawn: Pharmacist Comments on Vancomycin Plan: Vancomycin dosing will take advantage of Dandelion as a clinical decision support tool that uses Bayesian modeling to calculate individual patient's pharmacokinetic parameters and forecast the patient's drug concentration time course with the target goal AUC 24 range of 400 - 600 mg/L/hr.
[2024-02-04 22:42] VITALS: BP 99/50; PULSE 69; RESP 16; TEMP 36.8; O2SAT 94
[2024-02-04] MEDS: Enoxaparin Sodium 40 MG/0.4 ML SYRINGE SUBCUT (22:52)
[2024-02-04] MEDS: clonazePAM 0.5 MG TABLET PO (22:52)
[2024-02-04] MEDS: ondansetron HCL 4 MG/2 ML VIAL IVPUSH (22:52)
[2024-02-04] MEDS: oxyCODONE HCl Immed Release 5 MG TABLET PO (22:54)
[2024-02-04] MEDS: Baclofen 10 MG TABLET PO (22:55)
[2024-02-04 23:01] VITALS: BP 92/49; PULSE 74
[2024-02-04] MEDS: vancomycin HCL 500 MG in 0.9 % Sodium Chloride 100 ML 110 MG IV (23:12)
[2024-02-04] MEDS: 0.9 % Sodium Chloride Flush 3 ML SYRINGE IVFLUSH (23:13)
[2024-02-04 23:30] VITALS: PULSE 73; O2SAT 93
[2024-02-05 05:04] LABS: Creatinine Clr Calc Pharmacy 97.8; Estimated Glomerular Filt Rate > 60
[2024-02-05 07:14] VITALS: BP 130/93; PULSE 79; RESP 16; TEMP 36.8; O2SAT 98
[2024-02-05] MEDS: 0.9 % Sodium Chloride Flush 3 ML SYRINGE IVFLUSH ×3 (07:15→20:05)
--- NOTE | 2024-02-05 07:17 | PC.NURSE ---
pt changed over by security - belongings placed in decon. vss and up to date. pt no longer hypotensive. normotensive at this time. pt remains afebrile. pt continuously reporting, i am so sick. pt educated on importance of staying in hospital to complete abx regimen. pt seemingly agreeable at this time. sitting upright eating breakfast. no sob/wob noted. respirations even/unlabored. pt waiting for bed assignment. lights dimmed to promote comfort. plan of care ongoing. call bond placed within reach.
--- NOTE | 2024-02-05 07:26 | HO.PM.IMPN ---
Subjective Subjective Date of Service: 02/05/24 Interval History: f/u management for MRSA bacteremia in IVD user who has left AMA on multiple occasions reports no complaint at this time Physical Exam Vital Signs: Vital Signs: Last Vital Signs Temp 98.2 F 02/05/24 07:14 Pulse 79 02/05/24 07:14 Resp 16 02/05/24 07:14 BP 130/93 H 02/05/24 07:14 Pulse Ox 98 02/05/24 07:14 O2 Del Method Room Air 02/05/24 07:14 BMI result Body Mass Index 22.3 Const: Other: General: AO X 3, no acute distress Resp: CTA bilateral CVS: S1,S2,RRR GI: +BS, NT, no distention Skin: No rash Neuro: motor grossly intact Psych: appropriate affect Objective Data Active Medications Acetaminophen (Acetaminophen 325 Mg Tablet) 650 mg PO Q6H PRN PRN Reason: Pain, Mild (Pain Scale 1-3), fever or headache Baclofen (Baclofen 10 Mg Tablet) 10 mg PO BID [facility] Last Admin: 02/04/24 22:55 Dose: 10 mg Documented By: JEFFRY Buprenorphine/Naloxone (Buprenorphine/Naloxone 8/2 Mg Film) 3 film SUBLINGUAL DAILY [facility] Calcium Carbonate (Calcium Carbonate 750 Mg Tab.Chew) 750 mg PO Q4H PRN PRN Reason: Heartburn Clonazepam (Clonazepam 0.5 Mg Tablet) 0.5 mg PO BID [facility] Last Admin: 02/04/24 22:52 Dose: 0.5 mg Documented By: JEFFRY Enoxaparin Sodium (Enoxaparin Sodium 40 Mg/0.4 Ml Syringe) 40 mg SUBCUT Q24H [facility] Last Admin: 02/04/24 22:52 Dose: 40 mg Documented By: JEFFRY Gabapentin (Gabapentin 300 Mg Capsule) 900 mg PO TID [facility] Vancomycin HCl 1,000 mg/ (Sodium Chloride) 270 mls @ 270 mls/hr IV Q12H [facility] Magnesium Hydroxide (Milk Of Magnesia 30 Ml Oral.Susp) 30 ml PO DAILY PRN PRN Reason: Constipation Melatonin (Melatonin 3 Mg Tablet) 6 mg PO BEDTIME PRN PRN Reason: Insomnia Olanzapine (Olanzapine 5 Mg Tablet) 5 mg PO BID [facility] Ondansetron HCl (Ondansetron Hcl 4 Mg/2 Ml Vial) 4 mg IVPUSH Q8H PRN PRN Reason: Nausea and Vomiting Last Admin: 02/04/24 22:52 Dose: 4 mg Documented By: JEFFRY Oxycodone HCl (Oxycodone Hcl Immed Release 5 Mg Tablet) 5 mg PO Q6H PRN PRN Reason: Pain, Severe (Pain Scale 7-10) Last Admin: 02/04/24 22:54 Dose: 5 mg Documented By: JEFFRY Pharmacy Consult (Consult Rx Vancomycin Dosing) 1 each MISCELLANE DAILY PRN PRN Reason: Consult order Propranolol HCl (Propranolol Hcl 10 Mg Tablet) 10 mg PO BID [facility]; Protocol Last Admin: 02/04/24 23:01 Dose: Not Given Documented By: JEFFRY Non-Admin Reason: Hypotensive Sodium Chloride (0.9 % Sodium Chloride Flush 3 Ml Syringe) 3 ml IVFLUSH QSHIFT [facility] Last Admin: 02/05/24 07:15 Dose: 3 ml Documented By: ANGIE Labs 02/04/24 20:26 02/05/24 04:43 Labs: Laboratory Results - last 24 hr 02/04/24 02/05/24 20:26 04:43 MCV 83.3 MCH 26.5 L MCHC 31.8 RDW 15.7 Plt Count 351 MPV 9.0 L Immature Gran % (Auto) Cancelled Neut % (Auto) Cancelled Lymph % (Auto) Cancelled [place] % (Auto) Cancelled Eos % (Auto) Cancelled Baso % (Auto) Cancelled Lymph # (Auto) Cancelled [place] # (Auto) Cancelled Eos # (Auto) Cancelled Baso # (Auto) Cancelled Abs Immat Gran (auto) Cancelled Absolute Neuts (auto) Cancelled Absolute Nucleated RBC 0.000 Nucleated RBC % (auto) 0.0 Neutrophils % (Manual) 49 Band Neutrophils % 7 H Lymphocytes % (Manual) 28 Atypical Lymphs % (Man) 4 Monocytes % (Manual) 6 Eosinophils % (Manual) 5 H Basophils % (Manual) 1 Abs Neuts (Manual) 1.6 L Lymphocytes # (Manual) 0.8 L Atyp Lymphs # (Manual) 0.1 Monocytes # (Manual) 0.2 Eosinophils # (Manual) 0.1 Platelet Estimate NORMAL Plt Morphology Comment NORMAL RBC Morphology NOTED Polychromasia 1+ (0-2) Tear Drop Cells 1+ (0-2) Ovalocytes 1+ (5-14) Smear Tech's Comments MANUAL DIFF Hold Purple Top SEE NOTE Anion Gap 12 Estim Creat Clear Calc 114.7 97.8 Estimated GFR > 60 > 60 Random Glucose 134 H Calcium 8.9 D Magnesium 2.0 Total Bilirubin 0.4 Direct Bilirubin 0.2 AST 127 H ALT 150 H Alkaline Phosphatase 288 H Total Protein 7.6 Albumin 3.6 Lipase 7 L Beta HCG, Quant < 2 Influenza Type A (PCR) NEGATIVE Influenza Type B (PCR) NEGATIVE RSV RNA Qual (PCR) NEGATIVE SARS-CoV-2 RNA (RT-PCR) NEGATIVE Assessment and Plan (1) MRSA (methicillin resistant staph aureus) culture positive: Status: Acute (2) Positive blood culture: Status: Acute Plan Pt is a 38/F significant for?polysubstance use disorder, IVDU, hx polymorphic V-tach, MRSA bacteremia, anxiety, depression, and bipolar disorder who presents to the ED with?body pain and asking treatment of bacteremia--she has left AMA multiple time within the last 1 week MRSA bacteremia from IVDU last B.Cx from 01/29 negative. she needs Abx for 4 weeks starting 01/24 (1st negative culture) hold on repeat cultures as no symptoms suggestive of bactermia\sepsis now Continue Vancomycin ID consult follow Vancomycin trough Acute transaminitis likely related to drug abuse to trend hepatitis screen IVDU Addiction medicine consult HTN Continue propranolol Peripheral neuropathy Continue gabapentin Mood disorder Continue clonazepam, olanzapine Full Code DVT Prophylaxis: Lovenox Pt will require a hospitalization for 2 overnight for treatment of?hx MRSA bacteremia from IVDU with IV antibiotics. Quality Stroke Does the patient have a stroke diagnosis?: No VTE Prior VTE?: No VTE Risk Level:: Medical - moderate - high VTE Device Contraindication: Treatment Not Indicated VTE Drug Contraindication: N/A - Med Ordered
[2024-02-05] MEDS: Gabapentin 300 MG CAPSULE 900 MG PO ×3 (08:25→20:04)
[2024-02-05 08:26] VITALS: BP 129/93; PULSE 76
[2024-02-05] MEDS: Propranolol HCL 10 MG TABLET PO ×2 (08:26→20:05)
[2024-02-05] MEDS: clonazePAM 0.5 MG TABLET PO ×2 (08:26→20:04)
[2024-02-05] MEDS: OLANZapine 5 MG TABLET PO ×2 (08:26→20:04)
[2024-02-05] MEDS: Baclofen 10 MG TABLET PO ×2 (08:26→20:04)
[2024-02-05] MEDS: Buprenorphine/Naloxone 8/2 mg FILM 3 FILM SUBLINGUAL (08:26)
--- NOTE | 2024-02-05 08:30 | PC.NURSE ---
pt medicated per provider order. pt continues to rest in no apparent distress. respirations remain even/unlabored. plan of care ongoing. call bond placed within reach.
[2024-02-05] MEDS: vancomycin HCL 1,000 MG in 0.9 % Sodium Chloride 250 ML 270 MG IV ×2 (10:35→21:36)
[2024-02-05] MEDS: oxyCODONE HCl Immed Release 5 MG TABLET PO ×2 (10:36→20:10)
--- NOTE | 2024-02-05 10:38 | PC.NURSE ---
pt reporting 10/10 generalized body pain all over. prn oxycodone utilized. effectiveness pending. abx administered per provider order. pt refused lab work via phlebotomy - admitting provider notified/aware.
--- NOTE | 2024-02-05 12:13 | MHC.EDTECH ---
pt refused vitals
[2024-02-05 12:14] VITALS: RESP 16
--- NOTE | 2024-02-05 12:59 | MHC.CM.PN ---
EDITING COMPUTER PUBLISHER AND CM VISITED PT PT WAS ASLEEP AND COULD NOT BE WOKEN UP
[2024-02-05 15:51] VITALS: BP 133/83; PULSE 66; RESP 18; TEMP 36.4; O2SAT 96
[2024-02-05] MEDS: Acetaminophen 325 MG TABLET 650 MG PO ×2 (16:08→21:43)
[2024-02-05 16:19] VITALS: BMI 24.7
--- NOTE | 2024-02-05 16:43 | PM.EVENT ---
Event Note Date of Service: 02/05/24 Event Note: Addiction consult placed for patient Well know to [facility]. career and guidance counselor attempted ot meet with patient earlier this afternoon, however patient quite sleepy. Chart reviewed, RAHUL ordered (suboxone 24mg QD) Will attempt to meet with patient again on Thursday. Time Spent With Patient Time: Total time managing care of this patient today ____ minutes.
[2024-02-05 19:22] VITALS: BP 102/60; PULSE 74; RESP 18; TEMP 36.6; O2SAT 97
[2024-02-05 20:05] VITALS: BP 102/60; PULSE 74
[2024-02-06 03:05] VITALS: BP 103/70; PULSE 72; RESP 16; TEMP 36.4; O2SAT 95
--- NOTE | 2024-02-06 07:01 | HO.PM.IMPN ---
Subjective Subjective Date of Service: 02/06/24 Interval History: f/u management for MRSA bacteremia in IVD user who has left AMA on multiple occasions c/o pain Physical Exam Vital Signs: Vital Signs: Last Vital Signs Temp 97.6 F 02/06/24 03:05 Pulse 72 02/06/24 03:05 Resp 16 02/06/24 03:05 BP 103/70 02/06/24 03:05 Pulse Ox 95 02/06/24 03:05 O2 Del Method Room Air 02/06/24 03:05 BMI result Body Mass Index 24.7 Const: Other: General: AO X 3, no acute distress Resp: CTA bilateral CVS: S1,S2,RRR GI: +BS, NT, no distention Skin: No rash Neuro: motor grossly intact Psych: appropriate affect Objective Data Active Medications Acetaminophen (Acetaminophen 325 Mg Tablet) 650 mg PO Q6H PRN PRN Reason: Pain, Mild (Pain Scale 1-3), fever or headache Last Admin: 02/05/24 21:43 Dose: 650 mg Documented By: CHAVA Baclofen (Baclofen 10 Mg Tablet) 10 mg PO BID [facility] Last Admin: 02/05/24 20:04 Dose: 10 mg Documented By: CHAVA Buprenorphine/Naloxone (Buprenorphine/Naloxone 8/2 Mg Film) 3 film SUBLINGUAL DAILY [facility] Last Admin: 02/05/24 08:26 Dose: 3 film Documented By: ANGIE Calcium Carbonate (Calcium Carbonate 750 Mg Tab.Chew) 750 mg PO Q4H PRN PRN Reason: Heartburn Clonazepam (Clonazepam 0.5 Mg Tablet) 0.5 mg PO BID [facility] Last Admin: 02/05/24 20:04 Dose: 0.5 mg Documented By: CHAVA Enoxaparin Sodium (Enoxaparin Sodium 40 Mg/0.4 Ml Syringe) 40 mg SUBCUT Q24H [facility] Last Admin: 02/05/24 21:40 Dose: Not Given Documented By: CHAVA Non-Admin Reason: Patient Refused Gabapentin (Gabapentin 300 Mg Capsule) 900 mg PO TID [facility] Last Admin: 02/05/24 20:04 Dose: 900 mg Documented By: CHAVA Vancomycin HCl 1,000 mg/ (Sodium Chloride) 270 mls @ 270 mls/hr IV Q12H [facility] Last Infusion: 02/05/24 23:09 Dose: Infused Documented By: CHAVA Magnesium Hydroxide (Milk Of Magnesia 30 Ml Oral.Susp) 30 ml PO DAILY PRN PRN Reason: Constipation Melatonin (Melatonin 3 Mg Tablet) 6 mg PO BEDTIME PRN PRN Reason: Insomnia Olanzapine (Olanzapine 5 Mg Tablet) 5 mg PO BID [facility] Last Admin: 02/05/24 20:04 Dose: 5 mg Documented By: CHAVA Ondansetron HCl (Ondansetron Hcl 4 Mg/2 Ml Vial) 4 mg IVPUSH Q8H PRN PRN Reason: Nausea and Vomiting Last Admin: 02/04/24 22:52 Dose: 4 mg Documented By: JEFFRY Oxycodone HCl (Oxycodone Hcl Immed Release 5 Mg Tablet) 5 mg PO Q6H PRN PRN Reason: Pain, Severe (Pain Scale 7-10) Last Admin: 02/05/24 20:10 Dose: 5 mg Documented By: CHAVA Pharmacy Consult (Consult Rx Vancomycin Dosing) 1 each MISCELLANE DAILY PRN PRN Reason: Consult order Propranolol HCl (Propranolol Hcl 10 Mg Tablet) 10 mg PO BID [facility]; Protocol Last Admin: 02/05/24 20:05 Dose: 10 mg Documented By: CHAVA Sodium Chloride (0.9 % Sodium Chloride Flush 3 Ml Syringe) 3 ml IVFLUSH QSHIFT [facility] Last Admin: 02/05/24 20:05 Dose: 3 ml Documented By: CHAVA Labs 02/04/24 20:26 02/06/24 08:45 Assessment and Plan (1) MRSA (methicillin resistant staph aureus) culture positive: Status: Acute (2) Positive blood culture: Status: Acute Plan Pt is a 38/F significant for?polysubstance use disorder, IVDU, hx polymorphic V-tach, MRSA bacteremia, anxiety, depression, and bipolar disorder who presents to the ED with?body pain and asking treatment of bacteremia--she has left AMA multiple time within the last 1 week MRSA bacteremia from IVDU last B.Cx from 01/29 negative. she needs Abx for 4 weeks starting 01/24 (1st negative culture) hold on repeat cultures as no symptoms suggestive of bactermia\sepsis now Continue Vancomycin, adjust level. She's been refusing labs, will change Abx to Dapto if vanco level cannot be obtained predictably ID consult Acute transaminitis likely related to drug abuse to trend hepatitis screen IVDU Addiction medicine consult HTN Continue propranolol Peripheral neuropathy Continue gabapentin Mood disorder Continue clonazepam, olanzapine Full Code DVT Prophylaxis: Lovenox Pt will require a hospitalization for 2 overnight for treatment of?hx MRSA bacteremia from IVDU with IV antibiotics. Quality Stroke Does the patient have a stroke diagnosis?: No VTE Prior VTE?: No VTE Risk Level:: Medical - moderate - high VTE Device Contraindication: Treatment Not Indicated VTE Drug Contraindication: N/A - Med Ordered
[2024-02-06 07:41] VITALS: BP 137/86; PULSE 66; RESP 16; TEMP 36.5; O2SAT 96
[2024-02-06] MEDS: Gabapentin 300 MG CAPSULE 900 MG PO ×3 (08:40→20:00)
[2024-02-06] MEDS: clonazePAM 0.5 MG TABLET PO ×2 (08:41→20:00)
[2024-02-06] MEDS: OLANZapine 5 MG TABLET PO ×2 (08:41→20:00)
[2024-02-06] MEDS: Baclofen 10 MG TABLET PO ×2 (08:41→20:00)
[2024-02-06] MEDS: Propranolol HCL 10 MG TABLET PO ×2 (08:41→20:00)
[2024-02-06] MEDS: 0.9 % Sodium Chloride Flush 3 ML SYRINGE IVFLUSH ×3 (08:43→20:01)
[2024-02-06] MEDS: oxyCODONE HCl Immed Release 5 MG TABLET PO ×2 (08:45→18:09)
[2024-02-06] MEDS: Buprenorphine/Naloxone 8/2 mg FILM 3 FILM SUBLINGUAL (08:46)
[2024-02-06 09:20] LABS: Vancomycin Trough 6.8 mcg/mL (10.0-20.0)
[2024-02-06 09:21] LABS: Creatinine Clr Calc Pharmacy 100.7; Estimated Glomerular Filt Rate > 60
--- NOTE | 2024-02-06 09:33 | HE.PHANOTE ---
Re: Vanco Stable renal function. Trough came back at 6.8. Pt is not therapeutic. Dose increased to 1,000 mg q8h, with predicted auc 501, predicted trough 12.9. Next trough 02/06 @ 0800.
[2024-02-06] MEDS: vancomycin HCL 1,000 MG in 0.9 % Sodium Chloride 250 ML 270 MG IV ×2 (10:13→18:06)
--- NOTE | 2024-02-06 10:21 | MHC.CM.PN ---
Addendum entered by Delilah Hollingsworth 02/06/24 10:23: PT WILL NEED IV ABX AT DC REFERRALS MADE TO SNFS PT IS ON [employer] Original Note: PT REPORTS SHE LIVES WITH HER GRANDMOTHER AND IS INDEPENDENT SHE HAS NO DME AND NO SERVICES SHE HAS A HCP ON FILE [place] [facility] [place]
[2024-02-06 10:37] LABS: Anion Gap 13 (12-20); Blood Urea Nitrogen 12 mg/dL (9-16); Calcium 9.3 mg/dL (8.4-10.2); Carbon Dioxide 26 mmol/L (22-29); Chloride 105 mmol/L (96-108); Glucose Random 106 mg/dL (60-115); Potassium 3.9 mmol/L (3.3-5.1); Sodium 140 mmol/L (135-145)
[2024-02-06] MEDS: Acetaminophen 325 MG TABLET 650 MG PO (13:23)
[2024-02-06 15:22] VITALS: BP 126/81; PULSE 66; RESP 16; TEMP 36.3; O2SAT 96
[2024-02-06 19:27] VITALS: BP 103/64; PULSE 82; RESP 16; TEMP 36.1; O2SAT 98
--- NOTE | 2024-02-06 21:58 | P.CNID_ITS ---
History of Present Illness Data of Consult Service Date: 02/06/24 Requesting physician: Garcia Fierro Primary Care Provider: Unknown Physician HPI Reason for consult: h/o MRSA bacteremia She present with body aches and withdrawal heroin. She says she wants to get treated for MRSA bacteremia. Apparently she left AMA after positive blood culture turned negative. She had blood culture positive MRSA on 01/20 and 01/24 negative. She also has elevated LFTs with SGOT 127 and SGPT 150. She has no fever and some leukopenia Review of Systems 2 Review of Systems: Yes all other systems are reviewed and are negative Constitutional: Constitutional: Reports body ache(s) PMFSH Past Medical History Medical History (Updated 02/06/24 @ 22:13 by Sydnie Barrera MD) Myalgic MDD (major depressive disorder), recurrent, severe, with psychosis Opioid use disorder, moderate, dependence Polysubstance abuse Cocaine use disorder History of drug dependence/abuse Atypical bipolar disorder Opiate withdrawal Acute anxiety Drug-induced psychotic disorder Depression PTSD (post-traumatic stress disorder) Anxiety Depression Family History Family history: reviewed and not pertinent Social History Social History Household Members: Family Household Members Other:: Pt. 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 statement Currently Displaying Signs/Symptoms of Drug Intoxication Withdrawal: No Other Past Substance Use Problem:: Pt. stated, I am not answering anymore of your stupid questions. Spiritual Healthcare Practices: Pt. refused to answer anymore questions, calling them stupid. Advance Directives: Yes Advance Directives Information Provided: No Advance Directives on File: Yes Advance Directives Date on File: 01/25/24 Do you have a plan to hurt others: No Plan Recently lost weight without trying: Unsure Nutrition Risks: No Nutritional Risk Patient : No : No Poor oral hygiene: No service: No Current occupational status: unemployed Sexual orientation: Don't Know Meds Allergies Allergy/AdvReac Type Severity Reaction Status Date / Time methadone Allergy Severe Anaphylaxis Verified 02/04/24 13:39 Active Medications: Current Medications Acetaminophen (Acetaminophen 325 Mg Tablet) 650 mg PO Q6H PRN PRN Reason: Pain, Mild (Pain Scale 1-3), fever or headache Last Admin: 02/06/24 13:23 Dose: 650 mg Baclofen (Baclofen 10 Mg Tablet) 10 mg PO BID [facility] Last Admin: 02/06/24 20:00 Dose: 10 mg Buprenorphine/Naloxone (Buprenorphine/Naloxone 8/2 Mg Film) 3 film SUBLINGUAL DAILY [facility] Last Admin: 02/06/24 08:46 Dose: 3 film Calcium Carbonate (Calcium Carbonate 750 Mg Tab.Chew) 750 mg PO Q4H PRN PRN Reason: Heartburn Clonazepam (Clonazepam 0.5 Mg Tablet) 0.5 mg PO BID [facility] Last Admin: 02/06/24 20:00 Dose: 0.5 mg Enoxaparin Sodium (Enoxaparin Sodium 40 Mg/0.4 Ml Syringe) 40 mg SUBCUT Q24H [facility] Last Admin: 02/06/24 20:02 Dose: Not Given Gabapentin (Gabapentin 300 Mg Capsule) 900 mg PO TID [facility] Last Admin: 02/06/24 20:00 Dose: 900 mg Vancomycin HCl 1,000 mg/ (Sodium Chloride) 270 mls @ 270 mls/hr IV Q8H [facility] Last Infusion: 02/06/24 19:42 Dose: Infused Magnesium Hydroxide (Milk Of Magnesia 30 Ml Oral.Susp) 30 ml PO DAILY PRN PRN Reason: Constipation Melatonin (Melatonin 3 Mg Tablet) 6 mg PO BEDTIME PRN PRN Reason: Insomnia Olanzapine (Olanzapine 5 Mg Tablet) 5 mg PO BID [facility] Last Admin: 02/06/24 20:00 Dose: 5 mg Ondansetron HCl (Ondansetron Hcl 4 Mg/2 Ml Vial) 4 mg IVPUSH Q8H PRN PRN Reason: Nausea and Vomiting Last Admin: 02/04/24 22:52 Dose: 4 mg Oxycodone HCl (Oxycodone Hcl Immed Release 5 Mg Tablet) 5 mg PO Q6H PRN PRN Reason: Pain, Severe (Pain Scale 7-10) Last Admin: 02/06/24 18:09 Dose: 5 mg Pharmacy Consult (Consult Rx Vancomycin Dosing) 1 each MISCELLANE DAILY PRN PRN Reason: Consult order Propranolol HCl (Propranolol Hcl 10 Mg Tablet) 10 mg PO BID [facility]; Protocol Last Admin: 02/06/24 20:00 Dose: 10 mg Sodium Chloride (0.9 % Sodium Chloride Flush 3 Ml Syringe) [facility] Last Admin: 02/06/24 20:01 Dose: 3 ml Home Medications ?Medication ?Instructions ?Recorded ?Confirmed ?Last Taken ?Type melatonin 1 mg tablet 6 mg PO BEDTIME PRN Sleep 11/17/23 02/04/24 11/28/23 History buprenorphine 8 mg-naloxone 2 mg 3 film sublingual DAILY 01/21/24 02/04/24 Unknown History sublingual film (Suboxone) Physical Exam 2 Vital Signs: Vital Signs: Last Vital Signs Temp 97.0 F 02/06/24 19:27 Pulse 82 02/06/24 19:27 Resp 16 02/06/24 19:27 BP 103/64 02/06/24 19:27 Pulse Ox 98 02/06/24 19:27 O2 Del Method Room Air 02/06/24 19:27 BMI result Body Mass Index 24.7 Const: General: cooperative HEENT: Head: Yes normal to inspection Face and sinus: Yes normal facial exam Mouth: Normal oral and palatal mucosa present Teeth and gingiva: d entition normal Eyes: General: appearance normal, both eyes and all related structures P upils: Equal, round and reactive pupils present Resp: Effort & Inspection: normal respiratory effort Cardio: Rate: regular rate Rhythm: regular rhythm GI: Palpation (GI): Soft to palpation and nontender : General: Yes no CVA tenderness Back/Spine/Pelvis: Back: no CVA tenderness Skin: Other: irritation skin hands,itchy Neuro: General: moves all extremities Cranial nerves: Yes Equal, round and reactive pupils present Extrem: General: Yes normal to inspection Psych: Appearance: grossly normal Results Labs 02/04/24 20:26 02/06/24 08:45 Labs: BMP 02/06/24 08:45 Sodium 140 Potassium 3.9 Chloride 105 Carbon Dioxide 26 BUN 12 Creatinine 0.66 Calcium 9.3 Assessment and Plan (1) Myalgic: Status: Acute Plan She has distant bacteremia that cleared quickly end December (). She has no blood cultures at this time positive. She has no fever or chills or leukocytosis or weakness in legs with spinal pain. She has elevated LFTs. She has quite probably cleared the MRSA bacteremia. There is no endocarditis on TTE 01/27/2024. Would recheck blood cultures. If still negative and not treated all this time would hold antibiotics,especially since TTE negative. Alternatively could check HORACE and stop antibiotics if negative. Possible tick borne infection or HIV with increased LFTs and leukopenia Check HIV,tick panel ,Hepatitis C
--- NOTE | 2024-02-06 22:29 | PM.EVENT ---
Event Note Date of Service: 02/06/24 Event Note: If all negative po Doxycycline 100 bid for a month. Time Spent With Patient Time: Total time managing care of this patient today ____ minutes.
[2024-02-07] MEDS: vancomycin HCL 1,000 MG in 0.9 % Sodium Chloride 250 ML 270 MG IV ×2 (01:51→09:59)
[2024-02-07 03:06] VITALS: BP 121/79; PULSE 67; RESP 16; TEMP 36.3; O2SAT 96
[2024-02-07] MEDS: Buprenorphine/Naloxone 8/2 mg FILM 3 FILM SUBLINGUAL (08:04)
[2024-02-07] MEDS: Propranolol HCL 10 MG TABLET PO (08:05)
[2024-02-07] MEDS: OLANZapine 5 MG TABLET PO (08:05)
[2024-02-07] MEDS: Gabapentin 300 MG CAPSULE 900 MG PO ×2 (08:05→15:11)
[2024-02-07] MEDS: oxyCODONE HCl Immed Release 5 MG TABLET PO ×2 (08:06→15:11)
[2024-02-07] MEDS: Baclofen 10 MG TABLET PO (08:06)
[2024-02-07] MEDS: clonazePAM 0.5 MG TABLET PO (08:06)
[2024-02-07] MEDS: 0.9 % Sodium Chloride Flush 3 ML SYRINGE IVFLUSH ×2 (08:08→15:12)
[2024-02-07 08:19] LABS: Creatinine Clr Calc Pharmacy 107.3; Estimated Glomerular Filt Rate > 60; Vancomycin Trough 14.4 mcg/mL (10.0-20.0)
[2024-02-07 08:46] VITALS: BP 140/95; PULSE 83; RESP 18; TEMP 36.8; O2SAT 95
--- NOTE | 2024-02-07 08:54 | HE.PHANOTE ---
Vancomycin addendum: Dose was increased to 1 gram q 8 hours, level on this dose came back at 14.4 with predicted AUC or 484, will keep current regimen and recheck level yoni after 3 more doses
--- NOTE | 2024-02-07 09:11 | HO.PM.IMPN ---
Subjective Subjective Date of Service: 02/07/24 Interval History: f/u management for MRSA bacteremia in IVD user who has left AMA on multiple occasions no new issues Physical Exam Vital Signs: Vital Signs: Last Vital Signs Temp 98.2 F 02/07/24 08:46 Pulse 83 02/07/24 08:46 Resp 18 02/07/24 08:46 BP 140/95 H 02/07/24 08:46 Pulse Ox 95 02/07/24 08:46 O2 Del Method Room Air 02/07/24 08:46 BMI result Body Mass Index 24.7 Const: Other: General: AO X 3, no acute distress Resp: CTA bilateral CVS: S1,S2,RRR GI: +BS, NT, no distention Skin: No rash Neuro: motor grossly intact Psych: appropriate affect Objective Data Active Medications Acetaminophen (Acetaminophen 325 Mg Tablet) 650 mg PO Q6H PRN PRN Reason: Pain, Mild (Pain Scale 1-3), fever or headache Last Admin: 02/06/24 13:23 Dose: 650 mg Documented By: DANIELLE Baclofen (Baclofen 10 Mg Tablet) 10 mg PO BID [facility] Last Admin: 02/07/24 08:06 Dose: 10 mg Documented By: DANIELLE Buprenorphine/Naloxone (Buprenorphine/Naloxone 8/2 Mg Film) 3 film SUBLINGUAL DAILY [facility] Last Admin: 02/07/24 08:04 Dose: 3 film Documented By: DANIELLE Calcium Carbonate (Calcium Carbonate 750 Mg Tab.Chew) 750 mg PO Q4H PRN PRN Reason: Heartburn Clonazepam (Clonazepam 0.5 Mg Tablet) 0.5 mg PO BID [facility] Last Admin: 02/07/24 08:06 Dose: 0.5 mg Documented By: DANIELLE Enoxaparin Sodium (Enoxaparin Sodium 40 Mg/0.4 Ml Syringe) 40 mg SUBCUT Q24H [facility] Last Admin: 02/06/24 20:02 Dose: Not Given Documented By: CHAVA Non-Admin Reason: Patient Refused Gabapentin (Gabapentin 300 Mg Capsule) 900 mg PO TID [facility] Last Admin: 02/07/24 08:05 Dose: 900 mg Documented By: DANIELLE Vancomycin HCl 1,000 mg/ (Sodium Chloride) 270 mls @ 270 mls/hr IV Q8H [facility] Last Infusion: 02/07/24 02:55 Dose: Infused Documented By: CHAVA Magnesium Hydroxide (Milk Of Magnesia 30 Ml Oral.Susp) 30 ml PO DAILY PRN PRN Reason: Constipation Melatonin (Melatonin 3 Mg Tablet) 6 mg PO BEDTIME PRN PRN Reason: Insomnia Olanzapine (Olanzapine 5 Mg Tablet) 5 mg PO BID [facility] Last Admin: 02/07/24 08:05 Dose: 5 mg Documented By: DANIELLE Ondansetron HCl (Ondansetron Hcl 4 Mg/2 Ml Vial) 4 mg IVPUSH Q8H PRN PRN Reason: Nausea and Vomiting Last Admin: 02/04/24 22:52 Dose: 4 mg Documented By: JEFFRY Oxycodone HCl (Oxycodone Hcl Immed Release 5 Mg Tablet) 5 mg PO Q6H PRN PRN Reason: Pain, Severe (Pain Scale 7-10) Last Admin: 02/07/24 08:06 Dose: 5 mg Documented By: DANIELLE Pharmacy Consult (Consult Rx Vancomycin Dosing) 1 each MISCELLANE DAILY PRN PRN Reason: Consult order Propranolol HCl (Propranolol Hcl 10 Mg Tablet) 10 mg PO BID [facility]; Protocol Last Admin: 02/07/24 08:05 Dose: 10 mg Documented By: DANIELLE Sodium Chloride (0.9 % Sodium Chloride Flush 3 Ml Syringe) 3 ml IVFLUSH [facility] Last Admin: 02/07/24 08:08 Dose: 3 ml Documented By: DANIELLE Labs 02/04/24 20:26 02/07/24 08:00 Labs: Laboratory Results - last 24 hr 02/06/24 02/07/24 08:45 08:00 Anion Gap 13 Estim Creat Clear Calc 100.7 107.3 Estimated GFR > 60 > 60 Random Glucose 106 Calcium 9.3 Vancomycin Trough 6.8 L 14.4 Assessment and Plan (1) MRSA (methicillin resistant staph aureus) culture positive: Status: Acute (2) Positive blood culture: Status: Acute Plan Pt is a 38/F significant for?polysubstance use disorder, IVDU, hx polymorphic V-tach, MRSA bacteremia, anxiety, depression, and bipolar disorder who presents to the ED with?body pain and asking treatment of bacteremia--she has left AMA multiple time within the last 1 week MRSA bacteremia from IVDU last B.Cx from 01/29 negative. she needs Abx for 4 weeks starting 10/28 (1st negative culture) repeat BCx if negative change to PO Doxy per ID recommendations Continue Vancomycin, adjust level. She's been refusing labs, will change Abx to Dapto if vanco level cannot be obtained predictably ID consult Acute transaminitis likely related to drug abuse to trend hepatitis screen IVDU Addiction medicine consult HTN Continue propranolol Peripheral neuropathy Continue gabapentin Mood disorder Continue clonazepam, olanzapine Full Code DVT Prophylaxis: Lovenox inpt for iv antibiotics for mrsa bacteremia Quality Stroke Does the patient have a stroke diagnosis?: No VTE Prior VTE?: No VTE Risk Level:: Medical - moderate - high VTE Device Contraindication: Treatment Not Indicated VTE Drug Contraindication: N/A - Med Ordered
[2024-02-07 15:30] VITALS: BP 163/105; PULSE 54; RESP 17; TEMP 36.4; O2SAT 98
--- NOTE | 2024-02-07 18:07 | PC.NURSE ---
Pt leaving AMA, encouraged not to. notified, encouraged not to. Pt noncompliant with care, leaving AMA, told risks, pt does not want to stay. Patient is of sound mind and can make her own decisions. Pt given a script for ABT. IV Removed by primary RN. Escorted out by security.
--- NOTE | 2024-02-08 07:08 | P.DS_ITS ---
DS: Providers Provider Date of Service: 02/07/24 Date of admission: 02/04/24 21:57 Date of discharge: 02/07/24 Primary care physician: Unknown Physician Consults: 02/04/24 22:08 Addiction Medicine Routine Consulting Provider: Addiction Covering Reason for consultation: IVDU Consult to Infectious Diseases Routine Consulting Provider: [facility] [place] [facility] Reason for consultation: Alternative plan if AMA. Need to readmission ? DS: Diagnosis Discharge Diagnosis (1) MRSA (methicillin resistant staph aureus) culture positive: Status: Acute (2) Positive blood culture: Status: Resolved DS: Summary Hospital Course Hospital Course: 38-year-old female with a history of polysubstance use disorder, IVDU, polymorphic ventricular tachycardia, MRSA bacteremia, anxiety, depression, and bipolar disorder, presented to the ED with generalized body pain. She reported returning for treatment of bacteremia after leaving AMA twice in the past two weeks while receiving IV antibiotics. She was afebrile upon arrival. The patient was admitted and restarted on Vancomycin. Infectious Disease recommended transitioning to oral doxycycline for four weeks if blood cultures remained negative. Final blood culture results were unavailable at the time of her discharge AMA. She was prescribed a 4-week course of doxycycline as advised by ID Time Attestation Discharge Coordination Time (in mins): 35 Quality: Safe Use of Opioids Does Pt have an Active Cancer Diagnosis on the Problem List?: No Quality: Stroke Does the patient have a stroke diagnosis?: No Physical Exam Vital Signs: Vital Signs: Last Vital Signs Temp 97.5 F 02/07/24 15:30 Pulse 54 02/07/24 15:30 Resp 17 02/07/24 15:30 BP 163/105 H 02/07/24 15:30 Pulse Ox 98 02/07/24 15:30 O2 Del Method Room Air 02/07/24 08:46 BMI result Body Mass Index 24.7 DS: Data Data Completed and Pending Completed studies during hospitalization [Text1]: Procedures Detoxification Services for Substance Abuse Treatment (10/05/20) Labs on day of discharge: Laboratory Results - last 24 hr 02/07/24 08:00 Creatinine 0.62 Estim Creat Clear Calc 107.3 Estimated GFR > 60 Vancomycin Trough 14.4 Discharge Plan Discharge Anticipated Discharge Date/Time: 02/07/24 17:58 Patient Disposition: Left Against Medical Advice Discharge Diagnosis: MRSA bacteremia Referrals: Physician,Unknown J [Primary Care Provider] - 1 Week Discharge Medications: New doxycycline monohydrate 100 mg capsule 100 mg PO BID Qty: 56 0RF Continued clonazepam 0.5 mg tablet 0.5 mg PO BID Qty: 14 0RF olanzapine [Zyprexa] 5 mg tablet 5 mg PO BID Qty: 14 0RF gabapentin 800 mg tablet 800 mg PO TID Qty: 21 0RF propranolol 10 mg tablet 10 mg PO BID Qty: 14 0RF baclofen 10 mg tablet 10 mg PO BID Qty: 14 0RF melatonin 1 mg Tablet 6 mg PO BEDTIME PRN (Reason: Sleep) buprenorphine-naloxone [Suboxone] 8-2 mg film 3 film sublingual DAILY Discharge Orders: Discharge Order (Routine); Ordered 02/07/24 Ordered By: Deirdre Hernández Diet: Advance to usual diet Activity on Discharge: As tolerated Print Language: Sammarinese Care Plan Goals: Take doxycycline 100 mg 1 tablet twice daily for 28 days Returned to [facility] with recurrent episodes of fever chills Strongly recommend to abstain from illicit drug use Health Concerns: Opiate use disorder Hypertension Peripheral neuropathy Plan of Treatment: Follow-up with primary care physician call for appointment 1 week Assessment: As above Discharge Date/Time: 02/07/24 18:02
[2024-02-08 08:21] LABS: HIV Num 1 9.17 S/CO (0.00-0.99)
[2024-02-08 08:31] LABS: ~Hepatitis C Antibody Reactive (Nonreactive)
[2024-02-08 12:38] LABS: HIV AB/AG Nonreactive (Nonreactive); HIV Num 3 0.09 S/CO
[2024-02-08 21:43] LABS: Lyme Abs Screen <0.90 index
== END 2024-02-07 18:02 | disposition left against medical advice (07) | DRG 724 ==
LOC: HO.ED 21:46 → HO.EDOVER 02-05 06:53 → HO.S3 02-05 15:05
PROVIDERS: Internal Medicine; Physician Assistant Medical; Admitting Provider Student in an Organized Health Care Education/Training Program; Emergency Provider Internal Medicine; Visit Provider Internal Medicine
DX: R78.81 Bacteremia (principal); B95.62 Methicillin resistant Staphylococcus aureus infection as the cause of diseases classified elsewhere; F17.210 Nicotine dependence, cigarettes, uncomplicated; I10 Essential (primary) hypertension; G62.9 Polyneuropathy, unspecified; F11.20 Opioid dependence, uncomplicated; F19.10 Other psychoactive substance abuse, uncomplicated; Z20.822 Contact with and (suspected) exposure to COVID-19; Z71.6 Tobacco abuse counseling; Z79.899 Other long term (current) drug therapy
CPT/HCPCS: 0241U; 36415; 80048; 80076; 80202; 82565; 83690; 83735; 84702; 85007; 85025; 85027; 86617; 86618; 86803; 87389; 93005; 99285; J1650; J2405; J3370

== ENCOUNTER → 2024-02-04 13:34 | Outpatient (BNV) | payer MEDICAID, SELFPAY | PROVIDERS: Admitting Provider Student in an Organized Health Care Education/Training Program; Emergency Provider Internal Medicine; Visit Provider Internal Medicine Cardiovascular Disease | DX: R53.1 Weakness (principal) | CPT/HCPCS: 93010 ==

== ENCOUNTER → 2024-02-04 14:01 | Outpatient (BNV) | payer MEDICAID, SELFPAY | PROVIDERS: Emergency Provider Internal Medicine; Visit Provider Student in an Organized Health Care Education/Training Program | DX: R78.81 Bacteremia (principal); B95.62 Methicillin resistant Staphylococcus aureus infection as the cause of diseases classified elsewhere; F19.10 Other psychoactive substance abuse, uncomplicated; R74.01 Elevation of levels of liver transaminase levels | CPT/HCPCS: 99223; 99232; 99239 ==

== ENCOUNTER → 2024-02-04 21:57 | Outpatient (BNV) | payer MEDICAID, SELFPAY | PROVIDERS: Admitting Provider Student in an Organized Health Care Education/Training Program; Emergency Provider Internal Medicine; Visit Provider Internal Medicine | DX: M79.10 Myalgia, unspecified site (principal) | CPT/HCPCS: 99222; 99499 ==

== ENCOUNTER 2024-03-03 18:04 | Emergency (ER) | payer MEDICAID, SELFPAY ==
--- NOTE | ~2024-03-03 | XR_ITS ---
EXAMINATION: XR CHEST CLINICAL INFORMATION: chest pain COMPARISON: Chest radiograph dated January 21, 2024. TECHNIQUE: 2 views of the chest were obtained. FINDINGS: The heart is normal in size. The lungs are clear. Pleural spaces are clear. No pneumothorax. No acute osseous abnormality. XR/XR chest 2V IMPRESSION: No acute cardiopulmonary disease. Electronically signed by: Otto Henderson DO 03/03/2024 08:19 PM EST
[2024-03-03 18:18] VITALS: BP 99/61; PULSE 79; RESP 18; TEMP 36.7; O2SAT 97; BMI 23.3
--- NOTE | 2024-03-03 18:23 | ED.GENADULT ---
HPI - General Adult General Chief complaint: General Medical Stated complaint: ?blood infection Time Seen by Provider: 03/03/24 22:03 Source: patient Mode of arrival: ambulatory Limitations: no limitations History of Present Illness ED Provider: HPI narrative: Patient IVDA user with history of depression comes here as she is feeling weak no fever no chills does have some cold symptoms took 2 trazodone prior to arrival patient does have history of MRSA bacteremia supposed to be on doxycycline blood culture were negative on 02/06 patient took only 1 week of doxycycline after discharge Related Data Home Medications ?Medication ?Instructions ?Recorded ?Confirmed melatonin 1 mg tablet 6 mg PO BEDTIME PRN Sleep 11/17/23 02/04/24 buprenorphine 8 mg-naloxone 2 mg 3 film sublingual DAILY 01/21/24 02/04/24 sublingual film (Suboxone) Previous Rx's ?Medication ?Instructions ?Recorded clonazepam 0.5 mg tablet 0.5 mg PO BID #14 tabs 11/29/23 olanzapine 5 mg tablet (Zyprexa) 5 mg PO BID #14 tabs 11/29/23 baclofen 10 mg tablet 10 mg PO BID #14 tabs 01/14/24 gabapentin 800 mg tablet 800 mg PO TID #21 tabs 01/14/24 propranolol 10 mg tablet 10 mg PO BID #14 tabs 01/14/24 doxycycline monohydrate 100 mg 100 mg PO BID #56 caps 02/07/24 capsule Allergies Allergy/AdvReac Type Severity Reaction Status Date / Time methadone Allergy Severe Anaphylaxis Verified 03/03/24 18:21 Review of Systems Review of Systems: Yes all other systems are reviewed and are negative PMFSH Past Medical History Medical History Myalgic MDD (major depressive disorder), recurrent, severe, with psychosis Opioid use disorder, moderate, dependence Polysubstance abuse Cocaine use disorder History of drug dependence/abuse Atypical bipolar disorder Opiate withdrawal Acute anxiety Drug-induced psychotic disorder Depression PTSD (post-traumatic stress disorder) Anxiety Depression Social History Social History Household Members: Family Household Members Other:: Pt. 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 Patient Tobacco Use Status: Current everyday Tobacco user Tobacco use type: Cigarette Cigarette Packs Per Day: 1 Cigarettes Per Day: 20.0 Years Smoked: 26 Smoked in Last 30 Days: Yes e-Cigarette/Vaping Use: Never Used Second Hand Smoke Exposure: No Use of substances other than those prescribed or required for medical reasons: Yes Substance Use Type: Heroin and IV Drugs Advance Directives: Yes Advance Directives on File: Yes Advance Directives Date on File: 01/25/24 Do you have a plan to hurt others: No Plan Patient : No service: No Current occupational status: unemployed Sexual orientation: Don't Know Physical Exam ED Vital Signs: Vital Signs - 24 hr 03/03/24 18:18 03/03/24 21:42 03/03/24 22:23 Temperature 98.0 F 97.7 F Pulse Rate 79 60 62 Respiratory Rate 18 13 14 Blood Pressure 99/61 92/72 83/50 L Pulse Oximetry 97 95 95 Oxygen Delivery Method Room Air Room Air Room Air 03/03/24 22:24 03/03/24 22:40 03/03/24 23:34 Temperature 98.5 F Pulse Rate 67 69 66 Respiratory Rate 17 14 Blood Pressure 89/35 L 90/61 94/52 L Pulse Oximetry 95 96 Oxygen Delivery Method Room Air Room Air BMI result Body Mass Index 23.3 Appearance: Alert. Oriented X3. No acute distress. Eyes: PERRLA, No Nystagmus ENT: Pharynx normal. Oral Mucosa moist Neck: Normal inspection. Neck supple. CVS: Normal heart rate and rhythm. Pulses normal. Respiratory: No respiratory distress. Equal air entry bilateral, no wheezing/rales/rhonchi Abdomen: Soft and nontender. Bowel sounds are present, no mass palpable, no CVA tenderness Skin: Skin warm and dry. Normal skin color. Normal skin turgor. Extremities: No lower extremity edema. No calf tenderness Neuro: Oriented X 3. No motor deficit. No sensory deficit.No cerebellar signs , cranial nerves II-XII intact Course Course Course Narrative: This is a Rapid Medical Examination (RME) performed by Dallin Hodge PA-C in triage. Full HPI, ROS, assessment and treatment plan per primary provider in the Main ED. 38 yo female hx of polysubstance abuse, bipolar disorder, prolonged QTC, history of polymorphic V-tach, anxiety, depression, recent admission here for MRSA bacteremia here with multiple concerns. reports chills, chest pain, coughing, sneezing, body aches x1mo. states I have a blood infection still after leaving [facility] 1 month ago. denies fever, N/V. Plan: labs, ekg, cxr Medications Administered Discontinued Medications Generic Name Dose Route Start Last Admin Trade Name Freq PRN Reason Stop Dose Admin Doxycycline Monohydrate 100 mg 03/03/24 23:19 03/03/24 23:30 Doxycycline Monohydrate 100 Mg Capsule PO 03/03/24 23:20 100 mg ONCE ONE Administration Medical Decision Making Medical Decision Making [facility] Narrative: Patient refusing IV line at this time like to wait till 23:30 very difficult patient to do any workup aware that patient may have bacterial infection patient's CRP and WBC count normal Patient told the RN that she suicidal with no plan will get care team involved 03/04/2024 at 06:45 hours,Dr. Linwood Delarosa's note Patient was been in the emergency department for 12 hours. Patient presented with suicidal ideation without patient is waiting to be seen by care team. No reported incidents on the patient by the overnight staff. Urine tox screen was positive for opiates, fentanyl and cocaine. Ethanol was below detectable limits. Patient will remain in the emergency department [facility] until disposition can be determined or until patient's symptoms improve over time. 03/04/2024 at 08:32 hours,Dr. Linwood Delarosa's note Patient was evaluated by the care team. The patient is well-known to the care team provider and the patient was seen here frequently. Patient was medically cleared and at this time there is not a an acute psychiatric reason to keep the patient in the emergency department. The patient will be referred to [facility] for further management of her psychiatric condition as an outpatient. Patient was given printed instructions and discharged home. Lab Data [facility] Lab Attestation statement: I reviewed the patient's lab results. 03/03/24 18:32 03/03/24 18:32 Labs: Lab Results 03/03/24 03/03/24 03/03/24 Range/Units 18:32 23:20 23:59 WBC 5.7 (4.8-10.8) X10*3/uL RBC 4.14 L (4.20-5.50) X10*6/uL Hgb 10.4 L (12.0-16.0) g/dl Hct 34.5 L (37.0-47.0) % MCV 83.3 (80.0-98.0) fL MCH 25.1 L (27.0-33.0) pg MCHC 30.1 L (31.0-35.0) g/dl RDW 15.8 (11.0-16.0) % Plt Count 236 D (160-400) X10*3/uL MPV 9.5 (9.4-12.3) fL Immature Gran % (Auto) 0.2 (0.0-0.4) % Neut % (Auto) 49.0 (45-73) % Lymph % (Auto) 41.1 H (20-40) % [place] % (Auto) 5.2 (2-11) % Eos % (Auto) 4.2 H (0-4) % Baso % (Auto) 0.3 (0-2) % Lymph # (Auto) 2.4 (1.2-4.9) X10*3/uL [place] # (Auto) 0.3 (0.1-1.2) X10*3/uL Eos # (Auto) 0.2 (0.0-0.4) X10*3/uL Baso # (Auto) 0.0 (0.0-0.2) X10*3/uL Abs Immat Gran (auto) 0.01 (0.00-0.03) X10*3/uL Absolute Neuts (auto) 2.8 (2.0-8.3) x10*3/uL Absolute Nucleated RBC 0.000 (0.0-0.012) X10*3/uL Nucleated RBC % (auto) 0.0 (0.0-0.2) /100WBC ESR 11 (0-20) MM/HR Sodium 138 (135-145) mmol/L Potassium 4.2 (3.3-5.1) mmol/L Chloride 106 (96-108) mmol/L Carbon Dioxide 28 (22-29) mmol/L Anion Gap 8 L (12-20) BUN 14 (9-16) mg/dL Creatinine 0.92 (0.5-1.4) mg/dL Estim Creat Clear Calc 72.3 Estimated GFR > 60 Random Glucose 83 (60-115) mg/dL Lactic Acid 1.8 (0.5-2.0) mmol/L Calcium 9.3 (8.4-10.2) mg/dL Magnesium 2.0 (1.6-2.6) mg/dL Total Bilirubin 0.4 (0.0-1.0) mg/dL AST 21 (5-31) U/L ALT 18 (0-31) U/L Alkaline Phosphatase 76 (39-117) U/L Troponin I High Sens < 2.7 (<3.5-17.0) ng/L C-Reactive Protein < 0.10 (< or = 0.50) mg/dL Total Protein 7.7 (6.5-8.0) g/dL Albumin 4.1 (3.5-5.0) g/dL Beta HCG, Quant < 2 mIU/mL Urine Color Yellow Urine Appearance Clear Urine pH 6.0 (5.0-9.0) Ur Specific [place] 1.020 (1.005-1.025) Urine Protein Negative (Neg-Trace) mg/dL Urine Glucose (UA) Negative (Negative) mg/dL Urine Ketones Negative (Negative) mg/dL Urine Blood Negative (Negative) Urine Nitrite Negative (Negative) Ur Leukocyte Esterase Negative (Negative) Urine Opiates Screen POSITIVE H (Not Detect) Ur Buprenorphine Scrn Not Detected (Not Detect) ng/mL Ur Oxycodone Screen Not Detected (Not Detect) ng/mL Urine Methadone Screen Not Detected (Not Detect) ng/mL Urine Fentanyl Screen POSITIVE H (Not Detect) Ur Barbiturates Screen Not Detected (Not Detect) Ur Phencyclidine Scrn Not Detected (Not Detect) Ur Amphetamines Screen Not Detected (Not Detect) U Benzodiazepines Scrn Not Detected (Not Detect) Urine Cocaine Screen POSITIVE H (Not Detect) U Marijuana (THC) Screen Not Detected (Not Detect) Ethyl Alcohol < 10 mg/dL Influenza Type A (PCR) NEGATIVE (Negative) Influenza Type B (PCR) NEGATIVE (Negative) RSV RNA Qual (PCR) NEGATIVE (Negative) SARS-CoV-2 RNA (RT-PCR) NEGATIVE (Negative) Discharge Plan Discharge Clinical Impression: Bipolar disorder Patient Disposition: Home, Self-Care Additional Instructions: Your blood work was unremarkable which is reassuring You were seen by our care team and they are recommending that you follow-up with outpatient psychiatric services for further treatment. Please follow the care team recommendations Please return to the emergency department if your symptoms get worse or if you develop any symptoms that are concerning to you. Prescriptions: No Action clonazepam 0.5 mg tablet 0.5 mg PO BID Qty: 14 0RF olanzapine [Zyprexa] 5 mg tablet 5 mg PO BID Qty: 14 0RF gabapentin 800 mg tablet 800 mg PO TID Qty: 21 0RF propranolol 10 mg tablet 10 mg PO BID Qty: 14 0RF baclofen 10 mg tablet 10 mg PO BID Qty: 14 0RF melatonin 1 mg Tablet 6 mg PO BEDTIME PRN (Reason: Sleep) buprenorphine-naloxone [Suboxone] 8-2 mg film 3 film sublingual DAILY doxycycline monohydrate 100 mg capsule 100 mg PO BID Qty: 56 0RF Print Language: Danish
[2024-03-03 18:37] LABS: MANUAL DIFF FLAG NO
[2024-03-03 18:49] LABS: Basophils Percent Auto 0.3 % (0-2); Eosinophils Absolute Auto 0.2 X10*3/uL (0.0-0.4); Eosinophils Percent Auto 4.2 % (0-4); Hematocrit 34.5 % (37.0-47.0); Hemoglobin 10.4 g/dl (12.0-16.0); Imm Gran Abs Auto 0.01 X10*3/uL (0.00-0.03); Imm Gran Pct Auto 0.2 % (0.0-0.4); Lymphocytes Absolute Auto 2.4 X10*3/uL (1.2-4.9); Lymphocytes Percent Auto 41.1 % (20-40); Mean Corpuscular HGB Conc 30.1 g/dl (31.0-35.0); Mean Corpuscular Hemoglobin 25.1 pg (27.0-33.0); Mean Corpuscular Volume 83.3 fL (80.0-98.0); Mean Platelet Volume 9.5 fL (9.4-12.3); Monocytes Absolute Auto 0.3 X10*3/uL (0.1-1.2); Monocytes Percent Auto 5.2 % (2-11); Neutrophils Absolute Auto 2.8 x10*3/uL (2.0-8.3); Platelet Count 236 X10*3/uL (160-400); Red Blood Count 4.14 X10*6/uL (4.20-5.50); Red Cell Distribution Width 15.8 % (11.0-16.0); White Blood Count 5.7 X10*3/uL (4.8-10.8)
[2024-03-03 18:55] LABS: Alanine Aminotransferase 18 U/L (0-31); Albumin Level 4.1 g/dL (3.5-5.0); Alkaline Phosphatase 76 U/L (39-117); Anion Gap 8 (12-20); Aspartate Amino Transferase 21 U/L (5-31); Bilirubin Total 0.4 mg/dL (0.0-1.0); Blood Urea Nitrogen 14 mg/dL (9-16); C Reactive Protein < 0.10 mg/dL (< or = 0.50); Calcium 9.3 mg/dL (8.4-10.2); Carbon Dioxide 28 mmol/L (22-29); Chloride 106 mmol/L (96-108); Creatinine Clr Calc Pharmacy 72.3; Estimated Glomerular Filt Rate > 60; Glucose Random 83 mg/dL (60-115); Potassium 4.2 mmol/L (3.3-5.1); Sodium 138 mmol/L (135-145); Total Protein 7.7 g/dL (6.5-8.0)
[2024-03-03 19:04] LABS: Troponin-I High Sensitivity < 2.7 ng/L (<3.5-17.0)
[2024-03-03 19:26] LABS: Influenza A PCR NEGATIVE (Negative); Influenza B PCR NEGATIVE (Negative); Resp Syncy Virus RNA Qual PCR NEGATIVE (Negative); SARS COV2 PCR INHOUSE NEGATIVE (Negative)
[2024-03-03 19:39] LABS: Erythrocyte Sedimentation Rate 11 MM/HR (0-20)
[2024-03-03 21:42] VITALS: BP 92/72; PULSE 60; RESP 13; TEMP 36.5; O2SAT 95
--- NOTE | 2024-03-03 21:43 | PC.NURSE ---
this rn assumed care of pt from waiting room @ 2140. pt placed on cardiac rn and changed into hospital gown. per rn family pt allowed to keep belongings due to medical complaints pt awaiting to be seen by ed provider
[2024-03-03 22:23] VITALS: BP 83/50; PULSE 62; RESP 14; O2SAT 95
[2024-03-03 22:24] VITALS: BP 89/35; PULSE 67; RESP 17; O2SAT 95
--- NOTE | 2024-03-03 22:25 | MHC.EDTECH ---
Rounds and vitals completed,patient' BP is low 83/50,RN at bedside, Kevin LING was made aware. Patient is sitting up eating a sandwich,pt requested 2 ice creams/2 gingerale's,and saltines,call bond in reach
--- NOTE | 2024-03-03 22:35 | PC.NURSE ---
registered pharmacy technician made this rn aware of bp 83/50. registered pharmacy technician and this rn made dr wilde aware of bp. per md no new orders per md provide pt with food and something to drink. pt remains on independent beauty consultant. nurse discharge aware. pt awaiting to be seen by dr wilde
[2024-03-03 22:40] VITALS: BP 90/61; PULSE 69
[2024-03-03] MEDS: Doxycycline Monohydrate 100 MG CAPSULE PO (23:30)
[2024-03-03 23:34] VITALS: BP 94/52; PULSE 66; RESP 14; TEMP 36.9; O2SAT 96
[2024-03-03 23:38] LABS: Lactic Acid 1.8 mmol/L (0.5-2.0)
[2024-03-04 00:04] LABS: Appearance Urine Clear; Color Urine Yellow; Glucose Urine UA Negative (Negative); Leukocyte Esterase Urine Negative (Negative); Nitrite Urine Negative (Negative); Urine Blood Negative (Negative); Urine Ketones Negative (Negative); Urine Protein Negative (Neg-Trace)
--- NOTE | 2024-03-04 00:55 | PC.NURSE ---
t/w received patient from main ed wherein she was approached with discharge and then client stated she was having suicidal thoughts and recalled that grandmother had cancer. t/w made it clear to charge nurse that the patient who has a history of abrasive behavior-this would not be tolerated.
[2024-03-04 00:58] LABS: Amphetamine Screen Urine Not Detected (Not Detect); Barbiturates, Urine Not Detected (Not Detect); Benzodiazepines Screen Urine Not Detected (Not Detect); Buprenorphine Scr Not Detected (Not Detect); Cannabinoid Screen Urine Not Detected (Not Detect); Cocaine Screen Urine POSITIVE (Not Detect); Fentanyl, urine POSITIVE (Not Detect); Methadone Screen, Urine Not Detected (Not Detect); Opiate Screen Urine POSITIVE (Not Detect); Oxycodone Screen Urine Not Detected (Not Detect); Phencyclidine Screen Urine Not Detected (Not Detect)
[2024-03-04 01:05] LABS: Ethanol < 10 mg/dL; HCG Quantitative < 2 mIU/mL
--- NOTE | 2024-03-04 08:36 | MHC.CARE ---
Pt does not meet criteria for IPLOC and does not present as an imminent risk. Pt will be referred to [facility] for OP therapy and medication management as she is asking for medications and does not have any OP providers. Pt will obtain her own ride home via D/C. Provider in agreement with disposition.
--- NOTE | 2024-03-04 08:37 | PC.NURSE ---
Per care team- patient to go home, will find her own ride
[2024-03-04 09:22] VITALS: BP 94/52; PULSE 66; RESP 14; TEMP 36.9; O2SAT 96
--- NOTE | 2024-03-04 09:40 | MHC.CARE ---
CC Referral complete.
== END 2024-03-04 09:23 | disposition home or self-care (01) ==
PROVIDERS: Internal Medicine; Physician Assistant Medical; Emergency Provider Emergency Medicine Emergency Medical Services
DX: F31.9 Bipolar disorder, unspecified (principal); R07.89 Other chest pain; F17.210 Nicotine dependence, cigarettes, uncomplicated; Z03.818 Encounter for observation for suspected exposure to other biological agents ruled out; Z51.81 Encounter for therapeutic drug level monitoring; Z79.899 Other long term (current) drug therapy
CPT/HCPCS: 0241U; 36415; 71046; 80053; 80307; 81003; 83605; 83735; 84484; 84702; 85025; 85652; 86140; 99284